=== PATIENT | female | born 1960 | race Caucasian/White ===

== ENCOUNTER → 2020-05-06 10:13 | Outpatient (BNVA) | payer OTHER, SELFPAY | PROVIDERS: PCP Internal Medicine; Referring Provider Internal Medicine; Visit Provider Physician Assistant | DX: Z47.89 Encounter for other orthopedic aftercare (principal); Z48.02 Encounter for removal of sutures | CPT/HCPCS: 99212 ==

== ENCOUNTER 2020-05-11 09:59 | Outpatient (REF) | payer OTHER, SELFPAY ==
--- NOTE | 2020-05-11 10:06 | XR_ITS ---
EXAMINATION: XR LUMBOSACRAL SPINE CLINICAL INFORMATION: Low back pain COMPARISON: None TECHNIQUE: The lumbar spine is imaged in 4 views: AP, lateral, lateral flexion, lateral extension. FINDINGS: There is normal. Lumbar segmentation with 5 nonrib-bearing lumbar vertebrae of normal height and normal lumbar lordosis. There are postsurgical fusion changes L5-S1 with bilateral rods and pedicle screws and intradiscal spacer. The hardware is intact. The vertebral bodies are normal in height. There is no vertebral compression, destructive process, or osteolysis. There are mild degenerative disc changes L1-L2 with mild disc narrowing and endplate sclerosis and vertebral spurring. There is borderline spondylolisthesis L4-L5 with flexion which is normal alignment neutral and extension positions. There is no retrolisthesis. The SI joints and remainder of the visualized sacrum are unremarkable. There are surgical clips upper abdomen likely related to prior gastric sleeve. IMPRESSION: 1. Post fusion changes L5-S1. Hardware intact. No osteolysis. 2. Mild degenerative disc changes L1-L2. 3. Borderline spondylolisthesis L4-L5 with flexion. This normalizes in neutral position and extension. No retrolisthesis.
== END 2020-05-11 10:00 | disposition home or self-care (01) ==
LOC: HO.XRAY 09:59
PROVIDERS: PCP Internal Medicine; Visit Provider Physical Medicine & Rehabilitation
DX: M54.5 Low back pain (principal)
CPT/HCPCS: 72100

== ENCOUNTER 2020-05-29 11:51 | Outpatient (REF) | payer OTHER, SELFPAY ==
--- NOTE | 2020-05-29 12:35 | XR_ITS ---
EXAMINATION: XR SHOULDER, RIGHT CLINICAL INFORMATION: Pain COMPARISON: None TECHNIQUE: 3 views of the right shoulder. FINDINGS: Mild glenohumeral joint arthritis. Mild to moderate AC joint arthritis. No fracture or dislocation. No abnormal soft tissue calcification. XR/XR shoulder RT min 2V IMPRESSION: Mild glenohumeral joint arthritis. Mild to moderate AC joint arthritis.
== END 2020-05-29 11:52 | disposition home or self-care (01) ==
LOC: HO.HOSX 11:51
PROVIDERS: PCP Internal Medicine; Referring Provider Internal Medicine; Visit Provider Orthopaedic Surgery
DX: M25.511 Pain in right shoulder (principal); M75.51 Bursitis of right shoulder
CPT/HCPCS: 20610; 73030; 99212

== ENCOUNTER 2020-06-25 10:00 | Outpatient (RCR) | payer OTHER, SELFPAY ==
--- NOTE | 2020-05-15 14:07 | MHC.PT.EP ---
[facility] [place] [facility] [place] [facility] [place] [facility] [address] Gabbie Nuno [address] [phone] F: [phone] F: [phone] F: [phone] F: [phone] Physical Therapy Plan of Care Date of Evaluation: 05/15/20 Date of Surgery: SAD and labral Debridement April 22 Diagnosis: SAD and labral Debridement April 22 Assessment: Patient is a 60 year old R handed female who presents with s/s consistent with SAD and labral debridement 04/22/2020. She is not currently work but does enjoy running errands, shopping and [place]. Patient past medical history includes spinal fusion, spinal stenosis, gastric bypass. Current impairments include pain, posture, ROM, strength, safety, independence, activity tolerance and functional mobility. Functional limitations include decreased ability to drive, lift, carry, push, pull, sleep, and perform weight bearing activities.. Patient is motivated with good rehab potential. Skilled PT will address impairments and functional limitations in order to achieve goals. Frequency and Duration: The patient will be seen 2x/week for 6 weeks Short Term Goals: I with HEP - 2 weeks ER/IR arc AROM to 100 - 3 weeks Pain with ADLs 6/10 max - 3 weeks Correction Goals: Strength 4/5 grossly - 6 weeks Full pain free AROM - 6 weeks SPADI 70/130 or less - 5 weeks Treatment Plan: Modalities to reduce pain, spasms and effusion. Manual therapy to restore motion and function. Therapeutic exercise to improve strength and flexibility. Neuromuscular re-education for posture and balance. Therapeutic activities to return to functional activities of daily living. Please sign and return to therapist. Thank you for your referral.
--- NOTE | 2020-07-01 07:57 | MHC.PT.DC ---
[facility] [place] [facility] [place] [facility] [place] Office [address] Gabbie Nuno [address] [phone] F: [phone] F: [phone] F: [phone] F: [phone] Physical Therapy Discharge Report Diagnosis: SAD and labral Debridement April 22 Date of Surgery: SAD and labral Debridement April 22 Date of Evaluation: 05/15/20 Date of Discharge: 06/30/20 Treatments to Date: 11 Cancellations to Date: 0 No Shows to Date: 0 Discharge Status: Independent with HEP Discharge Summary: Pt progressing with ROM. Pt needs to cont with RTC strengthening. She does have a good HEP to continue to address strength and ROM. Electronically signed by: Raffi Tamez, PT Please sign and return to therapist. Thank you for your referral.
== END 2020-07-01 07:58 | disposition home or self-care (01) ==
LOC: HO.PTCHIC 10:00
PROVIDERS: PCP Internal Medicine; Visit Provider Physician Assistant
DX: M75.81 Other shoulder lesions, right shoulder (principal)
CPT/HCPCS: 97110; 97140; 97162

== ENCOUNTER → 2020-07-30 11:30 | Outpatient (BNVA) | payer OTHER, SELFPAY | PROVIDERS: PCP Internal Medicine; Visit Provider Orthopaedic Surgery | DX: M75.51 Bursitis of right shoulder (principal); M19.012 Primary osteoarthritis, left shoulder | CPT/HCPCS: 99212 ==

== ENCOUNTER → 2020-08-17 09:27 | Outpatient (BNVA) | payer OTHER, SELFPAY | PROVIDERS: PCP Internal Medicine; Visit Provider Anesthesiology | DX: M96.1 Postlaminectomy syndrome, not elsewhere classified (principal); G89.4 Chronic pain syndrome | CPT/HCPCS: 99202 ==

== ENCOUNTER 2020-08-27 11:00 | Outpatient (RCR) | payer OTHER, SELFPAY ==
--- NOTE | 2020-07-03 07:48 | MHC.PT.EP ---
[facility] [place] [facility] [place] [facility] [place] Office [address] Nuno [address] [phone] F: [phone] F: [phone] F: [phone] F: [phone] Physical Therapy Plan of Care Date of Evaluation: 07/02/20 Date of Surgery: April 22 on L shoulder - R shoulder pain started around this time Diagnosis: R shoulder bursitis Assessment: Patient is a 60 year old R handed female who presents with s/s consistent with R shoulder pain/bursitis. She developed symptoms of shoulder pain shortly after or around the time of a L shoulder surgery at the end of March. She completed skilled PT for this and presents now to address her persistent R shoulder pain. She enjoys [place] and being able to run errands but has had increased difficulty in these areas. Patient past medical history includes cervical fusion, back surgery, weight loss surgery and L shoulder surgery. Current impairments include pain, ROM, posture, strength, safety, independence, activity tolerance and functional mobility. Functional limitations include decreased ability to sleep, lift, dress, carry, push, pull, [place], and perform weight bearing activities.. Patient is motivated with good rehab potential. Skilled PT will address impairments and functional limitations in order to achieve goals. Frequency and Duration: The patient will be seen 2x/week for 6 weeks Short Term Goals: I with HEP - 2 weeks AROM ER 45, flexion 130 - 3 weeks Max pain with sleep and ADLs 10/31 - 3 weeks Residential Goals: Able to [place] pain free - 5 weeks SPADI 50 or less - 5 weeks ER AROM to 50, flexion to 140, abd to 120 - 6 weeks Strength 4-/5 ER/IR - 6 weeks Treatment Plan: Modalities to reduce pain, spasms and effusion. Manual therapy to restore motion and function. Therapeutic exercise to improve strength and flexibility. Neuromuscular re-education for posture and balance. Therapeutic activities to return to functional activities of daily living. Electronically signed by: Raffi Tamez, PT Please sign and return to therapist. Thank you for your referral.
--- NOTE | 2020-10-05 13:56 | MHC.PT.DC ---
[facility] [place] Office [place] Office [place] Office [address] Gabbie Nuno [address] [phone] F: [phone] F: [phone] F: [phone] F: [phone] Physical Therapy Discharge Report Diagnosis: R shoulder bursitis Date of Surgery: April 22 on L shoulder - R shoulder pain started around this time Date of Evaluation: 07/02/20 Date of Discharge: 08/25/20 Treatments to Date: 8 Cancellations to Date: No Shows to Date: Discharge Status: Independent with HEP Discharge Summary: Pt progressed well over the course of skilled PT making progress on impairments and functional limitations resulting in an improved quality of life. Pt is I with HEP and appropriate to d/c to HEP at this time. Electronically signed by: Raffi Tamez, PT Please sign and return to therapist. Thank you for your referral.
== END 2020-10-05 14:00 | disposition home or self-care (01) ==
LOC: HO.PTCHIC 11:00
PROVIDERS: PCP Internal Medicine; Visit Provider Orthopaedic Surgery
DX: M75.51 Bursitis of right shoulder (principal)
CPT/HCPCS: 97035; 97110; 97140; 97162

== ENCOUNTER → 2020-08-28 15:27 | Outpatient (BNVA) | payer OTHER, SELFPAY | PROVIDERS: PCP Internal Medicine; Visit Provider Student in an Organized Health Care Education/Training Program | DX: L40.9 Psoriasis, unspecified (principal); R76.8 Other specified abnormal immunological findings in serum | CPT/HCPCS: 99212 ==

== ENCOUNTER 2020-09-01 08:00 | Outpatient (REF) | payer OTHER, SELFPAY ==
--- NOTE | ~2020-09-01 | XR_ITS ---
EXAMINATION: XR BILATERAL HAND AND BILATERAL FOOT CLINICAL INFORMATION: Psoriasis. COMPARISON: Previous right hand and left wrist x-ray November 2014. TECHNIQUE: 3 views of each hand and 3 views of each foot. FINDINGS: Left Hand: Bone alignment is normal. No fracture or dislocation is seen. There is a small soft tissue ossification or calcification adjacent to the dorsal medial DIP joint of the 2nd finger, question related to old trauma. Joint spaces are otherwise normal. Soft tissues are normal. Right Hand: Bone alignment is normal. No fracture or dislocation is seen. There is a small soft tissue ossification adjacent to the ulnar styloid, question related to old trauma. Joint spaces are normal. Soft tissues are normal. Left Foot: Bone alignment is normal in position is seen. Joint spaces are normal. There are small calcaneal spurs. Soft tissues are otherwise normal. Right Foot: Bone alignment is normal. No fracture or dislocation is seen. Joint spaces are normal. There are calcaneal spurs. Soft tissues are otherwise normal. XR/XR foot LT min 3V IMPRESSION: BILATERAL HANDS: Unremarkable exam BILATERAL FEET: Calcaneal spurs, right greater than left.
--- NOTE | ~2020-09-01 | XR_ITS ---
EXAMINATION: XR BILATERAL HAND AND BILATERAL FOOT CLINICAL INFORMATION: Psoriasis. COMPARISON: Previous right hand and left wrist x-ray November 2014. TECHNIQUE: 3 views of each hand and 3 views of each foot. FINDINGS: Left Hand: Bone alignment is normal. No fracture or dislocation is seen. There is a small soft tissue ossification or calcification adjacent to the dorsal medial DIP joint of the 2nd finger, question related to old trauma. Joint spaces are otherwise normal. Soft tissues are normal. Right Hand: Bone alignment is normal. No fracture or dislocation is seen. There is a small soft tissue ossification adjacent to the ulnar styloid, question related to old trauma. Joint spaces are normal. Soft tissues are normal. Left Foot: Bone alignment is normal in position is seen. Joint spaces are normal. There are small calcaneal spurs. Soft tissues are otherwise normal. Right Foot: Bone alignment is normal. No fracture or dislocation is seen. Joint spaces are normal. There are calcaneal spurs. Soft tissues are otherwise normal. XR/XR foot RT min 3V IMPRESSION: BILATERAL HANDS: Unremarkable exam BILATERAL FEET: Calcaneal spurs, right greater than left.
--- NOTE | ~2020-09-01 | XR_ITS ---
EXAMINATION: XR BILATERAL HAND AND BILATERAL FOOT CLINICAL INFORMATION: Psoriasis. COMPARISON: Previous right hand and left wrist x-ray November 2014. TECHNIQUE: 3 views of each hand and 3 views of each foot. FINDINGS: Left Hand: Bone alignment is normal. No fracture or dislocation is seen. There is a small soft tissue ossification or calcification adjacent to the dorsal medial DIP joint of the 2nd finger, question related to old trauma. Joint spaces are otherwise normal. Soft tissues are normal. Right Hand: Bone alignment is normal. No fracture or dislocation is seen. There is a small soft tissue ossification adjacent to the ulnar styloid, question related to old trauma. Joint spaces are normal. Soft tissues are normal. Left Foot: Bone alignment is normal in position is seen. Joint spaces are normal. There are small calcaneal spurs. Soft tissues are otherwise normal. Right Foot: Bone alignment is normal. No fracture or dislocation is seen. Joint spaces are normal. There are calcaneal spurs. Soft tissues are otherwise normal. XR/XR hand RT min 3V IMPRESSION: BILATERAL HANDS: Unremarkable exam BILATERAL FEET: Calcaneal spurs, right greater than left.
--- NOTE | ~2020-09-01 | XR_ITS ---
EXAMINATION: XR BILATERAL HAND AND BILATERAL FOOT CLINICAL INFORMATION: Psoriasis. COMPARISON: Previous right hand and left wrist x-ray November 2014. TECHNIQUE: 3 views of each hand and 3 views of each foot. FINDINGS: Left Hand: Bone alignment is normal. No fracture or dislocation is seen. There is a small soft tissue ossification or calcification adjacent to the dorsal medial DIP joint of the 2nd finger, question related to old trauma. Joint spaces are otherwise normal. Soft tissues are normal. Right Hand: Bone alignment is normal. No fracture or dislocation is seen. There is a small soft tissue ossification adjacent to the ulnar styloid, question related to old trauma. Joint spaces are normal. Soft tissues are normal. Left Foot: Bone alignment is normal in position is seen. Joint spaces are normal. There are small calcaneal spurs. Soft tissues are otherwise normal. Right Foot: Bone alignment is normal. No fracture or dislocation is seen. Joint spaces are normal. There are calcaneal spurs. Soft tissues are otherwise normal. XR/XR hand LT min 3V IMPRESSION: BILATERAL HANDS: Unremarkable exam BILATERAL FEET: Calcaneal spurs, right greater than left.
[2020-09-01 09:07] LABS: MANUAL DIFF FLAG NO
[2020-09-01 09:13] LABS: Basophils Absolute Auto 0.1 X10*3/uL (0.0-0.2); Basophils Percent Auto 1.5 % (0-2); Eosinophils Absolute Auto 0.3 X10*3/uL (0.0-0.4); Eosinophils Percent Auto 3.9 % (0-4); Hematocrit 42.6 % (37-47); Hemoglobin 13.1 g/dl (12.0-16.0); Imm Gran Abs Auto 0.03 X10*3/uL (0.00-0.03); Imm Gran Pct Auto 0.4 % (0.0-0.4); Lymphocytes Percent Auto 36.4 % (20-40); Mean Corpuscular HGB Conc 30.8 g/dl (31.0-35.0); Mean Corpuscular Hemoglobin 27.3 pg (27.0-33.0); Mean Corpuscular Volume 88.8 fL (80-98); Mean Platelet Volume 10.7 fL (9.4-12.3); Monocytes Absolute Auto 0.7 X10*3/uL (0.1-1.2); Monocytes Percent Auto 8.1 % (2-11); Neutrophils Absolute Auto 4.1 X10*3/uL (2.0-8.3); Neutrophils Percent Auto 49.7 % (45-73); Platelet Count 319 X10*3/uL (160-400); Red Cell Distribution Width 13.7 % (11.0-16.0); White Blood Count 8.2 X10*3/uL (4.8-10.8)
[2020-09-01 09:31] LABS: Alanine Aminotransferase 17 U/L (0-31); Albumin Level 4.2 g/dL (3.5-5.0); Alkaline Phosphatase 82 U/L (39-117); Anion Gap 13 (12-20); Aspartate Amino Transferase 17 U/L (5-31); Bilirubin Total 0.2 mg/dL (0.0-1.0); Blood Urea Nitrogen 13 mg/dL (9-16); C Reactive Protein 0.72 mg/dL (< or = 0.50); Calcium 9.2 mg/dL (8.4-10.2); Carbon Dioxide 29 mmol/L (22-29); Chloride 103 mmol/L (96-108); Cholesterol 259 mg/dL; Estimated Glomerular Filt Rate > 60; Glucose Fasting 88 mg/dL (60-99); HDL Cholesterol 53 mg/dL; LDL Cholesterol Calculated 177 mg/dl; Potassium 4.7 mmol/L (3.3-5.1); Sodium 140 mmol/L (135-145); Total Protein 6.8 g/dL (6.5-8.0); Triglycerides 146 mg/dL
[2020-09-01 09:45] LABS: Estimated Average Glucose 123 mg/dL; Hemoglobin A1c % 5.9 %
[2020-09-01 09:59] LABS: HBc Num1 0.14 S/CO (0.00-0.79); HBsAGNum1 0.16 S/CO (0.00-0.99); Hepatitis B Core Antibody Nonreactive (Nonreactive); Hepatitis B Surface Antigen Negative (Negative); ~Hepatitis B Surface Antibody NONREACTIVE (Nonreactive)
[2020-09-01 10:00] LABS: ~HepC Num1 0.08 S/CO (0.00-0.79); ~Hepatitis C Antibody Nonreactive (Nonreactive)
[2020-09-01 10:35] LABS: Erythrocyte Sedimentation Rate 16 MM/HR (0-20)
[2020-09-01 13:58] LABS: Rheumatoid Factor < 15.0 IU/mL (<15.0)
[2020-09-02 08:02] LABS: Hepatitis A Antibody IgM 0.09 Index (0-0.79); ~Hepatitis A Antibody IgM Nonreactive (Nonreactive)
[2020-09-02 11:57] LABS: Cyclic Citrullinated Peptide <16 UNITS
[2020-09-03 20:22] LABS: TS Negative Control Passed; TS Panel A 0; TS Panel B 0; TS Positive Control Passed; TSpotTB Negative (SeeBelow)
== END 2020-09-01 08:01 | disposition home or self-care (01) ==
LOC: HO.LAB 08:00
PROVIDERS: Student in an Organized Health Care Education/Training Program; PCP Internal Medicine; Referring Provider Internal Medicine Medical Oncology; Visit Provider Internal Medicine Medical Oncology
DX: F32.5 Major depressive disorder, single episode, in full remission (principal); G47.61 Periodic limb movement disorder; J45.909 Unspecified asthma, uncomplicated; K59.01 Slow transit constipation; E78.9 Disorder of lipoprotein metabolism, unspecified; L40.9 Psoriasis, unspecified
CPT/HCPCS: 36415; 73130; 73630; 80048; 80053; 80061; 83036; 85025; 85652; 86140; 86200; 86431; 86481; 86704; 86706; 86709; 86803; 87340

== ENCOUNTER 2020-09-08 10:14 | Emergency (ER) | payer OTHER, SELFPAY ==
--- NOTE | ~2020-09-08 | XR_ITS ---
EXAMINATION: XR CHEST CLINICAL INFORMATION: Abdominal pain COMPARISON: Chest radiographs 10/31/2018, 07/13/2018 TECHNIQUE: Portable upright AP view of the chest was obtained. FINDINGS: The lungs are clear. The vascularity is normal. The heart is normal in size. The costophrenic sulci are clear. There is no pneumothorax. No free air beneath the diaphragms. There are surgical clips again noted upper abdomen. The hilar and mediastinal contours and visualized bony structures are unremarkable. XR/XR chest 1V IMPRESSION: Unremarkable examination.
--- NOTE | ~2020-09-08 | CT_ITS ---
EXAMINATION: CT ABDOMEN AND PELVIS WITH CONTRAST CLINICAL INFORMATION: Right lower quadrant abdominal pain. Epigastric abdominal pain COMPARISON: Ultrasound 06/19/2018 TECHNIQUE: Multidetector volumetric images were obtained from the superior aspect of the liver through the pubic symphysis following administration 85 mL of Omnipaque 350 intravenous contrast. Sagittal and coronal reformatted images were obtained on the technologist's workstation. Oral contrast: No This CT examination was performed using dose optimization techniques as appropriate, variously including the following: *Automated exposure control *Adjustment of mA and/or kV according to patient size (this includes techniques or standardized protocols for targeted exams where dose is matched to indication/reason for exam; i.e. extremities or head) *Use of iterative reconstruction technique DLP: 875 mGy-cm FINDINGS: LUNG BASES: The visualized lung bases are unremarkable. LIVER, GALLBLADDER, AND BILIARY TREE: The liver is normal in size, shape, and attenuation. No focal hepatic lesion or biliary ductal dilatation is present. Gallbladder surgically absent. There is prominence of the common bile duct 1.1 cm with mild intrahepatic biliary ductal dilatation; this can be a normal expected finding is remote sequelae of prior cholecystectomy. PANCREAS: There is mild prominence of the proximal pancreatic duct. No pancreatic mass or peripancreatic inflammatory changes. SPLEEN: Unremarkable. ADRENAL GLANDS: Unremarkable. KIDNEYS AND URETERS: The kidneys are normal in size, shape, and attenuation. No hydronephrosis, hydroureter, or calculi seen. No perinephric stranding. BLADDER: Unremarkable. 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 The stomach is nondilated. Small bowel nondilated. Normal appendix. Mild diverticulosis. No evidence of colitis or diverticulitis. ABDOMINAL WALL: Small fat-containing umbilical hernia. LYMPH NODES: Normal. VASCULAR: Normal caliber aorta. Moderate calcified atherosclerotic changes. PELVIC VISCERA: Uterus not seen, likely surgically absent. No adnexal mass. OSSEOUS STRUCTURES: Lower lumbar fusion L5-S1. No acute or suspicious osseous abnormality. CT/CT abdomen pelvis w con IMPRESSION: No acute CT findings. Normal appendix. There is prominence of the common bile duct and mild intrahepatic biliary ductal dilatation, which can be normal findings is remote sequelae of prior cholecystectomy. Consider correlation with liver function tests.
[2020-09-08 11:15] VITALS: BP 125/51; PULSE 68; RESP 18; TEMP 37.1; O2SAT 97; BMI 36.2
--- NOTE | 2020-09-08 11:30 | ED_ITS ---
HPI - Abdominal Pain General Chief Complaint: Abdominal Pain <Дмитрий Villanueva NP - Last Filed: 09/08/20 16:46> Stated Complaint: pain on rt side <Дмитрий Villanueva NP - Last Filed: 09/08/20 16:46> Time Seen by Provider: 09/08/20 11:23 <Дмитрий Villanueva NP - Last Filed: 09/08/20 16:46> Source: patient <Дмитрий Villanueva NP - Last Filed: 09/08/20 16:46> Mode of arrival: ambulatory <Дмитрий Villanueva NP - Last Filed: 09/08/20 16:46> Limitations: no limitations <Дмитрий Villanueva NP - Last Filed: 09/08/20 16:46> History of Present Illness HPI narrative: 60-year-old female with blown past medical history including history of gastric ulcers and gastroesophageal reflux disease with surgical history of cholecystectomy who presents today with complaint of states for the past 1 week or so has had burning like epigastric pain and she went to urgent care for this were she had examination and reported the symptoms and on exam also had right lower quadrant abdominal pain was sent to the emergency room for rule out appy. She does report some nausea and vomiting after eating primarily but no diarrhea. No recent travel or sick contacts. No lower extremity swelling. No flank pain. <Дмитрий Villanueva NP - Last Filed: 09/08/20 16:46> MD elicited complaint: abdominal pain <Дмитрий Villanueva NP - Last Filed: 09/08/20 16:46> Pertinent past history: other (GERD) <Дмитрий Villanueva NP - Last Filed: 09/08/20 16:46> Onset (ago): week(s) <Дмитрий Villanueva NP - Last Filed: 09/08/20 16:46> Location: epigastric and RLQ <Дмитрий Villanueva NP - Last Filed: 09/08/20 16:46> Severity: moderate <Дмитрий Villanueva NP - Last Filed: 09/08/20 16:46> Radiation: none <Дмитрий Villanueva NP - Last Filed: 09/08/20 16:46> Associated symptoms: denies other symptoms <Дмитрий Villanueva NP - Last Filed: 09/08/20 16:46> Related Data Home Medications: Home Medications Medication Instructions Recorded Confirmed trazodone 100 mg tablet 100 mg PO BEDTIME PRN 05/06/20 07/01/20 cholecalciferol (vitamin D3) 50 50 mcg PO DAILY 05/29/20 07/01/20 mcg (2,000 unit) capsule cyclobenzaprine 10 mg tablet 10 mg PO BEDTIME 07/01/20 07/01/20 Previous Rx's Medication Instructions Recorded clonazepam 1 mg tablet 1 mg PO BEDTIME 90 Days #90 tab 07/01/20 venlafaxine 37.5 mg 37.5 mg PO DAILY 90 Days #90 cap 07/01/20 capsule,extended release 24 hr celecoxib 200 mg capsule 200 mg PO BID #60 cap 07/30/20 omeprazole magnesium [Prilosec OTC] 20 mg PO DAILY 14 Days #14 tab 09/08/20 ondansetron HCl [Zofran] 4 mg PO Q8H PRN #10 tab 09/08/20 <Дмитрий Villanueva NP - Last Filed: 09/08/20 16:46> Allergies/Adverse Reactions: Allergies Allergy/AdvReac Type Severity Reaction Status Date / Time adhesive tape [ADHESIVE TAPE] Allergy Severe SKIN TEARS Verified 09/08/20 11:14 carisoprodol [From SOMA] Allergy Intermediate SWELLING, Verified 09/08/20 11:14 RASH sulfamethoxazole Allergy Intermediate SWELLING,RA Verified 09/08/20 11:14 [From BACTRIM] SH trimethoprim [From BACTRIM] Allergy Intermediate SWELLING,RA Verified 09/08/20 11:14 SH gabapentin Allergy Unknown leg swells Verified 09/08/20 11:14 up Sulfa (Sulfonamide Allergy Unknown rash, Verified 09/08/20 11:14 Antibiotics) swelling Pramipexole Dihydrochloride Allergy Unknown severe Uncoded 05/31/20 17:23 diarrhea <Дмитрий Villanueva NP - Last Filed: 09/08/20 16:46> Review of Systems Review of Systems Constitutional: No Weight loss, No Fever, No Chills, No Night Sweats, No Fatigue, No Malaise ENT/Mouth: No Hearing loss, No Ear Pain, No Nasal Congestion, No Sinus Pain, No Hoarseness, No sore throat, No Rhinorrhea, No Swallowing Difficulty Eyes: No Eye Pain, No Swelling, No Redness, No Foreign Body, No Discharge, No Vision Changes Cardiovascular: No SOB, No Dyspnea on Exertion, No Orthopnea, No Edema, No Palpi tations Respiratory: No Cough, No Sputum, No Wheezing, No Smoke Exposure, No Dyspnea Gastrointestinal:, No Diarrhea, No Constipation, No Hematochezia, No Melena Genitourinary: no irregular bleeding, No Dysuria, No Urinary Frequency, No Hematuria, No Urinary Incontinence, No Urgency, No Flank Pain, No Urinary Flow Changes, No Hesitancy Musculoskeletal: No joint pain, No Myalgias, No Joint Swelling Skin: No Skin Lesions, No rash Neuro: No Weakness, No Numbness, No Paresthesias, No Loss of Consciousness, No Dizziness, No Headache Psych: No Anxiety/Panic, No Depression, No SI/HI/AH/VH, No Social Issues Heme/Lymph: No Bruising, No Bleeding,No Lymphadenopathy Endocrine: No Polyuria, No Polydipsia, No Temperature Intolerance <Дмитрий Villanueva NP - Last Filed: 09/08/20 16:46> Yes all other systems are reviewed and are negative <Дмитрий Villanueva NP - Last Filed: 09/08/20 16:46> Physical Exam Vital Signs: Vital Signs: Last Vital Signs Temp 98.1 F 09/08/20 15:22 Pulse 66 09/08/20 15:22 Resp 09/08/20 15:22 BP 101/52 L 09/08/20 15:22 Pulse Ox 94 09/08/20 15:22 Body Mass Index 36.2 Reviewed <Дмитрий Villanueva NP - Last Filed: 09/08/20 16:46> Vital Signs: Last Vital Signs Temp 98.1 F 09/08/20 15:22 Pulse 66 09/08/20 15:22 Resp 09/08/20 15:22 BP 101/52 L 09/08/20 15:22 Pulse Ox 94 09/08/20 15:22 Body Mass Index 36.2 <Alex Mcconnell MD - Last Filed: 09/14/20 07:04> Const: General: cooperative and healthy appearing; No acute distress or intoxicated appearing <Дмитрий Villanueva NP - Last Filed: 09/08/20 16:46> Nutritional Appearance: average body habitus <Дмитрий Villanueva NP - Last Filed: 09/08/20 16:46> Orientation/consciousness: patient oriented x3 <[facility] Rich - Last Filed: 09/08/20 16:46> HENMT: Head: Yes normal to inspection <[facility] Rich [facility] Last Filed: 09/08/20 16:46> Ears: hearing grossly normal bilaterally <[facility] Villanueva [facility] Last Filed: 09/08/20 16:46> Eyes: General: appearance normal, both eyes and all related structures <[facility] Villanueva - Last Filed: 09/08/20 16:46> Visual Mandel: normal visual mandel by confrontation <[facility] Villanueva [facility] Last Filed: 09/08/20 16:46> Neck: Neck: Yes normal visual inspection, No positive Brudzinski's sign, No positive Kernig's sign and No tender <[facility] Villanueva [employer] - Last Filed: 09/08/20 16:46> Thyroid: Thyroid normal <[facility] Villanueva [facility] Last Filed: 09/08/20 16:46> Chest: Chest palpation & inspection: normal inspection of the chest <[facility] Villanueva - Last Filed: 09/08/20 16:46> Resp: Effort & Inspection: normal respiratory effort <[facility] Villanueva [facility] Last Filed: 09/08/20 16:46> Auscultation: clear to auscultation bilaterally <[facility] Villanueva [employer] CONDITION[employer]INE[employer] - Last Filed: 09/08/20 16:46> Cardio: Jugular venous distension: no JVD <[facility] Villanueva - Last Filed: 09/08/20 16:46> Rhythm: regular rhythm <[facility] Villanueva - Last Filed: 09/08/20 16:46> Heart sounds: S1 normal heart sound present and S2 normal heart sound present <[facility] Villanueva, - Last Filed: 09/08/20 16:46> GI: Inspection: Yes normal to inspection <[facility] Villanueva, [employer] CONDITION[employer] ENGINEER - Last Filed: 09/08/20 16:46> Palpation (GI): Tenderness to palpation present (GI) in the epigastrum <[facility] Villanueva, [employer] CONDITION[employer] ENGINEER - Last Filed: 09/08/20 16:46> Percussion: Yes normal to percussion <Дмитрий Villanueva NP - Last Filed: 09/08/20 16:46> Auscultation: normal bowel sounds <Дмитрий Villanueva NP - Last Filed: 09/08/20 16:46> : General: Yes no CVA tenderness <Дмитрий Villanueva NP - Last Filed: 09/08/20 16:46> Back/Spine/Pelvis: Back: no CVA tenderness <Дмитрий Villanueva NP - Last Filed: 16:46> Skin: General skin exam: no rashes or lesions noted <Дмитрий Villanueva NP - Last Filed: 09/08/20 16:46> Neuro: General: patient oriented x3 <Дмитрий Villanueva NP - Last Filed: 09/08/20 16:46> Extrem: General: Yes normal to inspection <Дмитрий Villanueva NP - Last Filed: 09/08/20 16:46> Course Course Course Narrative: Feels better after GI cocktail. Workup overall reassuring. Will discharge home with short course of PPI return follow-up instructions. Stable for discharge. <Дмитрий Villanueva NP - Last Filed: 09/08/20 16:46> I have reviewed the chart <Alex Mcconnell MD - Last Filed: 09/14/20 07:04> MDM - Abdominal Pain MDM Narrative Medical decision making narrative: In review 60-year-old female with above history presenting with complaint of epigastric and vague right lower quadrant abdominal pain does have history of gastric ulcers as well as gastroesophageal reflux disease with some associated nausea and vomiting as well. Will check labs including cardiac enzymes chest x- ray and abdominal pelvic CT rule out acute infectious pathology. <Дмитрий Villanueva NP - Last Filed: 09/08/20 16:46> Differential Diagnosis Differential diagnosis: Likely abdominal pain, acute appendicitis, diverticulitis, gastroenteritis, gastritis, pancreatitis and peptic ulcer disease; Unlikely aortic dissection, bowel perforation, calculus of kidney, constipation, endometriosis, mesenteric ischemia, ovarian cyst, renal colic and small bowel obstruction <Дмитрий Villanueva NP - Last Filed: 09/08/20 16:46> Medical Records Attestation: I reviewed the patient's medical records. <Дмитрий Villanueva NP - Last Filed: 09/08/20 16:46> Lab Data Attestation: I reviewed the patient's lab results. <Дмитрий Villanueva NP - Last Filed: 09/08/20 16:46> Result diagrams: : 09/08/20 11:34 09/08/20 11:34 <Дмитрий Villanueva NP - Last Filed: 09/08/20 16:46> Labs: Lab Results 09/08/20 09/08/20 09/08/20 Range/Units 11:33 11:34 11:34 WBC 10.9 H (4.8-10.8) X10*3/uL RBC 4.76 (4.20-5.50) X10*6/uL Hgb 13.3 (12.0-16.0) g/dl Hct 42.2 (37-47) % MCV 88.7 (80-98) fL MCH 27.9 (27.0-33.0) pg MCHC 31.5 (31.0-35.0) g/dl RDW 13.7 (11.0-16.0) % Plt Count 304 (160-400) X10*3/uL MPV 10.3 (9.4-12.3) fL Immature Gran % (Auto) 0.3 (0.0-0.4) % Neut % (Auto) 67.2 (45-73) % Lymph % (Auto) 21.5 (20-40) % Esmeralda % (Auto) 8.3 (2-11) % Eos % (Auto) 1.8 (0-4) % Baso % (Auto) 0.9 (0-2) % Lymph # (Auto) 2.3 (1.2-4.9) X10*3/uL Esmeralda # (Auto) 0.9 (0.1-1.2) X10*3/uL Eos # (Auto) 0.2 (0.0-0.4) X10*3/uL Baso # (Auto) 0.1 (0.0-0.2) X10*3/uL Abs Immat Gran (auto) 0.03 (0.00-0.03) X10*3/uL Absolute Neuts (auto) 7.3 (2.0-8.3) X10*3/uL Absolute Nucleated RBC 0.000 (0.0-0.012) X10*3/uL Nucleated RBC % (auto) 0.0 (0.0-0.2) /100WBC PT 11.6 (10.8-13.0) SEC INR 1.0 (0.9-1.1) APTT 32.6 (24.1-38.0) SEC Sodium (135-145) mmol/L Potassium (3.3-5.1) mmol/L Chloride (96-108) mmol/L Carbon Dioxide (22-29) mmol/L Anion Gap (12-20) BUN (9-16) mg/dL Creatinine (0.5-1.4) mg/dL Estim Creat Clear Calc Estimated GFR Random Glucose (60-115) mg/dL Calcium (8.4-10.2) mg/dL Total Bilirubin (0.0-1.0) mg/dL AST (5-31) U/L ALT (0-31) U/L Alkaline Phosphatase (39-117) U/L Troponin I High Sens < 3.5 (<3.5-17.0) ng/L Total Protein (6.5-8.0) g/dL Albumin (3.5-5.0) g/dL Urine Color Urine Appearance Urine pH (5.0-8.0) Ur Specific [place] (1.005-1.025) Urine Protein (NEG-TRACE) MG/DL Urine Glucose (UA) (NEG) MG/DL Urine Ketones (NEG) MG/DL Urine Blood (NEG) Urine Nitrite (NEG) Ur Leukocyte Esterase (NEG) Urine RBC (0) /HPF Urine WBC (0-4) /HPF Ur Squamous Epith Cells /LPF Urine Bacteria /LPF 09/08/20 09/08/20 Range/Units 11:34 13:34 WBC (4.8-10.8) X10*3/uL RBC (4.20-5.50) X10*6/uL Hgb (12.0-16.0) g/dl Hct (37-47) % MCV (80-98) fL MCH (27.0-33.0) pg MCHC (31.0-35.0) g/dl RDW (11.0-16.0) % Plt Count (160-400) X10*3/uL MPV (9.4-12.3) fL Immature Gran % (Auto) (0.0-0.4) % Neut % (Auto) (45-73) % Lymph % (Auto) (20-40) % Esmeralda % (Auto) (2-11) % Eos % (Auto) (0-4) % Baso % (Auto) (0-2) % Lymph # (Auto) (1.2-4.9) X10*3/uL Esmeralda # (Auto) (0.1-1.2) X10*3/uL Eos # (Auto) (0.0-0.4) X10*3/uL Baso # (Auto) (0.0-0.2) X10*3/uL Abs Immat Gran (auto) (0.00-0.03) X10*3/uL Absolute Neuts (auto) (2.0-8.3) X10*3/uL Absolute Nucleated RBC (0.0-0.012) X10*3/uL Nucleated RBC % (auto) (0.0-0.2) /100WBC PT (10.8-13.0) SEC INR (0.9-1.1) APTT (24.1-38.0) SEC Sodium 141 (135-145) mmol/L Potassium 4.6 (3.3-5.1) mmol/L Chloride 104 (96-108) mmol/L Carbon Dioxide 29 (22-29) mmol/L Anion Gap 13 (12-20) BUN 11 (9-16) mg/dL Creatinine 0.66 (0.5-1.4) mg/dL Estim Creat Clear Calc 100.5 Estimated GFR > 60 Random Glucose 90 (60-115) mg/dL Calcium 9.4 (8.4-10.2) mg/dL Total Bilirubin 0.6 (0.0-1.0) mg/dL AST 14 (5-31) U/L ALT 15 (0-31) U/L Alkaline Phosphatase 79 (39-117) U/L Troponin I High Sens (<3.5-17.0) ng/L Total Protein 6.9 (6.5-8.0) g/dL Albumin 4.3 (3.5-5.0) g/dL Urine Color YELLOW Urine Appearance CLEAR Urine pH 7.0 (5.0-8.0) Ur Specific [place] 1.010 (1.005-1.025) Urine Protein NEG (NEG-TRACE) MG/DL Urine Glucose (UA) NEG (NEG) MG/DL Urine Ketones NEG (NEG) MG/DL Urine Blood TRACE (NEG) Urine Nitrite NEG (NEG) Ur Leukocyte Esterase NEG (NEG) Urine RBC 0-2 (0) /HPF Urine WBC 0 (0-4) /HPF Ur Squamous Epith Cells 2+ /LPF Urine Bacteria TRACE /LPF <Дмитрий Villanueva NP - Last Filed: 09/08/20 16:46> Lab Results 09/08/20 09/08/20 09/08/20 Range/Units 11:33 11:34 11:34 WBC 10.9 H (4.8-10.8) X10*3/uL RBC 4.76 (4.20-5.50) X10*6/uL Hgb 13.3 (12.0-16.0) g/dl Hct 42.2 (37-47) % MCV 88.7 (80-98) fL MCH 27.9 (27.0-33.0) pg MCHC 31.5 (31.0-35.0) g/dl RDW 13.7 (11.0-16.0) % Plt Count 304 (160-400) X10*3/uL MPV 10.3 (9.4-12.3) fL Immature Gran % (Auto) 0.3 (0.0-0.4) % Neut % (Auto) 67.2 (45-73) % Lymph % (Auto) 21.5 (20-40) % Esmeralda % (Auto) 8.3 (2-11) % Eos % (Auto) 1.8 (0-4) % Baso % (Auto) 0.9 (0-2) % Lymph # (Auto) 2.3 (1.2-4.9) X10*3/uL Esmeralda # (Auto) 0.9 (0.1-1.2) X10*3/uL Eos # (Auto) 0.2 (0.0-0.4) X10*3/uL Baso # (Auto) 0.1 (0.0-0.2) X10*3/uL Abs Immat Gran (auto) 0.03 (0.00-0.03) X10*3/uL Absolute Neuts (auto) 7.3 (2.0-8.3) X10*3/uL Absolute Nucleated RBC 0.000 (0.0-0.012) X10*3/uL Nucleated RBC % (auto) 0.0 (0.0-0.2) /100WBC PT 11.6 (10.8-13.0) SEC INR 1.0 (0.9-1.1) APTT 32.6 (24.1-38.0) SEC Sodium (135-145) mmol/L Potassium (3.3-5.1) mmol/L Chloride (96-108) mmol/L Carbon Dioxide (22-29) mmol/L Anion Gap (12-20) BUN (9-16) mg/dL Creatinine (0.5-1.4) mg/dL Estim Creat Clear Calc Estimated GFR Random Glucose (60-115) mg/dL Calcium (8.4-10.2) mg/dL Total Bilirubin (0.0-1.0) mg/dL AST (5-31) U/L ALT (0-31) U/L Alkaline Phosphatase (39-117) U/L Troponin I High Sens < 3.5 (<3.5-17.0) ng/L Total Protein (6.5-8.0) g/dL Albumin (3.5-5.0) g/dL Urine Color Urine Appearance Urine pH (5.0-8.0) Ur Specific [place] (1.005-1.025) Urine Protein (NEG-TRACE) MG/DL Urine Glucose (UA) (NEG) MG/DL Urine Ketones (NEG) MG/DL Urine Blood (NEG) Urine Nitrite (NEG) Ur Leukocyte Esterase (NEG) Urine RBC (0) /HPF Urine WBC (0-4) /HPF Ur Squamous Epith Cells /LPF Urine Bacteria /LPF 09/08/20 09/08/20 Range/Units 11:34 13:34 WBC (4.8-10.8) X10*3/uL RBC (4.20-5.50) X10*6/uL Hgb (12.0-16.0) g/dl Hct (37-47) % MCV (80-98) fL MCH (27.0-33.0) pg MCHC (31.0-35.0) g/dl RDW (11.0-16.0) % Plt Count (160-400) X10*3/uL MPV (9.4-12.3) fL Immature Gran % (Auto) (0.0-0.4) % Neut % (Auto) (45-73) % Lymph % (Auto) (20-40) % Esmeralda % (Auto) (2-11) % Eos % (Auto) (0-4) % Baso % (Auto) (0-2) % Lymph # (Auto) (1.2-4.9) X10*3/uL Esmeralda # (Auto) (0.1-1.2) X10*3/uL Eos # (Auto) (0.0-0.4) X10*3/uL Baso # (Auto) (0.0-0.2) X10*3/uL Abs Immat Gran (auto) (0.00-0.03) X10*3/uL Absolute Neuts (auto) (2.0-8.3) X10*3/uL Absolute Nucleated RBC (0.0-0.012) X10*3/uL Nucleated RBC % (auto) (0.0-0.2) /100WBC PT (10.8-13.0) SEC INR (0.9-1.1) APTT (24.1-38.0) SEC Sodium 141 (135-145) mmol/L Potassium 4.6 (3.3-5.1) mmol/L Chloride 104 (96-108) mmol/L Carbon Dioxide 29 (22-29) mmol/L Anion Gap 13 (12-20) BUN 11 (9-16) mg/dL Creatinine 0.66 (0.5-1.4) mg/dL Estim Creat Clear Calc 100.5 Estimated GFR > 60 Random Glucose 90 (60-115) mg/dL Calcium 9.4 (8.4-10.2) mg/dL Total Bilirubin 0.6 (0.0-1.0) mg/dL AST 14 (5-31) U/L ALT 15 (0-31) U/L Alkaline Phosphatase 79 (39-117) U/L Troponin I High Sens (<3.5-17.0) ng/L Total Protein 6.9 (6.5-8.0) g/dL Albumin 4.3 (3.5-5.0) g/dL Urine Color YELLOW Urine Appearance CLEAR Urine pH 7.0 (5.0-8.0) Ur Specific [place] 1.010 (1.005-1.025) Urine Protein NEG (NEG-TRACE) MG/DL Urine Glucose (UA) NEG (NEG) MG/DL Urine Ketones NEG (NEG) MG/DL Urine Blood TRACE (NEG) Urine Nitrite NEG (NEG) Ur Leukocyte Esterase NEG (NEG) Urine RBC 0-2 (0) /HPF Urine WBC 0 (0-4) /HPF Ur Squamous Epith Cells 2+ /LPF Urine Bacteria TRACE /LPF <Alex Mcconnell MD - Last Filed: 09/14/20 07:04> Imaging Data CT of abdomen/pelvis: Radiologist's impression: [address] Scan ReportSigned Patient: Kaylah Streeter LMR#: [id number]: [id number]:[id number]/Sex: 60 / FADM Date: 09/08/20Loc: [address]: Ordering Physician: Дмитрий Villanueva NP Date of Service: 09/08/20 Procedure(s): CT abdomen pelvis w con Accession Number(s): [id number] cc: Дмитрий Villanueva NP~ EXAMINATION: CT ABDOMEN AND PELVIS WITH CONTRAST CLINICAL INFORMATION: Right lower quadrant abdominal pain. Epigastric abdominal pain COMPARISON: Ultrasound 06/19/2018 TECHNIQUE: Multidetector volumetric images were obtained from the superior aspect of the liver through the pubic symphysis following administration 85 mL of Omnipaque 350 intravenous contrast. Sagittal and coronal reformatted images were obtained on the technologist's workstation. Oral contrast: No This CT examination was performed using dose optimization techniques as appropriate, variously including the following: *Automated exposure control *Adjustment of mA and/or kV according to patient size (this includes techniques or standardized protocols for targeted exams where dose is matched to indication/reason for exam; i.e. extremities or head) *Use of iterative reconstruction technique DLP: 875 mGy-cm FINDINGS: LUNG BASES: The visualized lung bases are unremarkable. LIVER, GALLBLADDER, AND BILIARY TREE: The liver is normal in size, shape, and attenuation. No focal hepatic lesion or biliary ductal dilatation is present. Gallbladder surgically absent. There is prominence of the common bile duct 1.1 cm with mild intrahepatic biliary ductal dilatation; this can be a normal expected finding is remote sequelae of prior cholecystectomy. PANCREAS: There is mild prominence of the proximal pancreatic duct. No pancreatic mass or peripancreatic inflammatory changes. SPLEEN: Unremarkable. ADRENAL GLANDS: Unremarkable. KIDNEYS AND URETERS: The kidneys are normal in size, shape, and attenuation. No hydronephrosis, hydroureter, or calculi seen. No perinephric stranding. BLADDER: Unremarkable. 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 The stomach is nondilated. Small bowel nondilated. Normal appendix. Mild diverticulosis. No evidence of colitis or diverticulitis. ABDOMINAL WALL: Small fat-containing umbilical hernia. LYMPH NODES: Normal. VASCULAR: Normal caliber aorta. Moderate calcified atherosclerotic changes. PELVIC VISCERA: Uterus not seen, likely surgically absent. No adnexal mass. OSSEOUS STRUCTURES: Lower lumbar fusion L5-S1. No acute or suspicious osseous abnormality. CT/CT abdomen pelvis w con IMPRESSION: No acute CT findings. Normal appendix. There is prominence of the common bile duct and mild intrahepatic biliary ductal dilatation, which can be normal findings is remote sequelae of prior cholecystectomy. Consider correlation with liver function tests. Dictated By:NEY HAMMOND MDSigned By:<Electronically signed by NEY HAMMOND MD in [place]>09/08/20 1258 DD/ 1132TD/TT: Technician'S Helper: TF <Дмитрий Villanueva NP - Last Filed: 09/08/20 16:46> Chest x-ray: Radiologist's impression: [address] [id number] ReportSigned Patient: Kaylah Streeter LMR#: [id number]: [id number]:[id number]/Sex: 60 / FADM Date: 09/08/20Loc: HO.EDAttending Dr: Ordering Physician: Дмитрий Villanueva NP Date of Service: 09/08/20 Procedure(s): XR chest 1V Accession Number(s): [id number] cc: Дмитрий Villanueva NP~ EXAMINATION: XR CHEST CLINICAL INFORMATION: Abdominal pain COMPARISON: Chest radiographs 10/31/2018, 07/13/2018 TECHNIQUE: Portable upright AP view of the chest was obtained. FINDINGS: The lungs are clear. The vascularity is normal. The heart is normal in size. The costophrenic sulci are clear. There is no pneumothorax. No free air beneath the diaphragms. There are surgical clips again noted upper abdomen. The hilar and mediastinal contours and visualized bony structures are unremarkable. XR/XR chest 1V IMPRESSION: Unremarkable examination. Dictated By:ALEX JONESigned By:<Electronically signed by ALEX ZIMMERMAN MD in [place]>09/08/20 1208 DD/ 1131TD/TT: Technician'S Helper: CK <Дмитрий Villanueva NP - Last Filed: 09/08/20 16:46> Discharge Plan Discharge Clinical Impression: Atypical chest pain, Abdominal pain <Дмитрий Villanueva NP - Last Filed: 09/08/20 16:46> Patient Disposition: Home, Self-Care <Дмитрий Villanueva NP - Last Filed: 09/08/20 16:46> Instructions: Chest Pain (ED), Abdominal Pain (ED) <Дмитрий Villanueva NP - Last Filed: 09/08/20 16:46> Additional Instructions: Chambers diet Taking medication prescribed Return if any concerns or worsening symptoms arose from her primary care doctor as discussed Thank you <Дмитрий Villanueva NP - Last Filed: 09/08/20 16:46> Prescriptions: New ondansetron HCl [Zofran] 4 mg tablet 4 mg PO Q8H PRN (Reason: nausea and vomiting) Qty: 10 RF: 0 omeprazole magnesium [Prilosec OTC] 20 mg tablet,delayed release (DR/EC) 20 mg PO DAILY 14 Days Qty: 14 RF: 0 No Action cholecalciferol (vitamin D3) 50 mcg (2,000 unit) capsule 50 mcg PO DAILY RF: 0 cyclobenzaprine 10 mg tablet 10 mg PO BEDTIME RF: 0 clonazepam 1 mg tablet 1 mg PO BEDTIME 90 Days Qty: 90 RF: 0 venlafaxine 37.5 mg capsule,extended release 24hr 37.5 mg PO DAILY 90 Days Qty: 90 RF: 0 trazodone 100 mg tablet 100 mg PO BEDTIME PRNRF: 0 celecoxib [Celebrex] 200 mg capsule 200 mg PO BID Qty: 60 RF: 1 <Дмитрий Villanueva NP - Last Filed: 09/08/20 16:46> Referrals: Amaya Harris MD [Primary Care Provider] - 1 week <Дмитрий Villanueva NP - Last Filed: 09/08/20 16:46> Interventions: ED Discharge Assessment Last Done: 09/08/20 16:24 <Дмитрий Villanueva NP - Last Filed: 09/08/20 16:46> Discharge Date/Time: 09/08/20 17:20 <Дмитрий Villanueva NP - Last Filed: 09/08/20 16:46> [facility] Past Medical History Medical History: Medical History JOHN positive Asthma, moderate Back pain Bursitis of right shoulder Chronic GERD Chronic pain syndrome Constipation by delayed colonic transit Degenerative disc disease Depression, major, in remission DJD (degenerative joint disease) Fibromyalgia Lipid disorder Periodic limb movement disorder Postlaminectomy syndrome of cervical region Postlaminectomy syndrome of lumbar region Pre-diabetes Right shoulder pain Sciatica, right side Sleeping difficulty Spinal stenosis <Дмитрий Villanueva NP - Last Filed: 09/08/20 16:46> Surgical History: Surgical History H/O shoulder surgery H/O spinal fusion H/O: hysterectomy History of gastric bypass Hx of cholecystectomy Status post bariatric surgery <Дмитрий Villanueva NP - Last Filed: 09/08/20 16:46> Family History Family History: Family History Father No problems noted. Mother No problems noted. <Дмитрий Villanueva NP - Last Filed: 09/08/20 16:46> Social History Social History: Social History (Updated 08/28/20 @ 15:34 by Sariah Alvarez CMA) Alcohol intake: never Smoking Status: Former smoker Current occupational status: disabled Current occupation: right handed <Дмитрий Villanueva NP - Last Filed: 09/08/20 16:46>
--- NOTE | 2020-09-08 11:31 | ECG_ITS ---
Test Reason : CHEST PRESSURE Blood Pressure : / mmHG Vent. Rate : 067 BPM Atrial Rate : 067 BPM P-R Int : 164 ms QRS Dur : 086 ms QT Int : 408 ms P-R-T Axes : 044 001 019 degrees QTc Int : 431 ms Normal sinus rhythm Normal ECG When compared with ECG of 11-JUL-2018 12:20, No significant change was found Referred By: Дмитрий Villanueva Electronically Signed By:Olegario Flannery
[2020-09-08] MEDS: 0.9 % Sodium Chloride 1,000 ML 999 ML IV (11:35)
[2020-09-08 11:41] LABS: MANUAL DIFF FLAG NO
[2020-09-08 11:47] LABS: Basophils Absolute Auto 0.1 X10*3/uL (0.0-0.2); Basophils Percent Auto 0.9 % (0-2); Eosinophils Absolute Auto 0.2 X10*3/uL (0.0-0.4); Eosinophils Percent Auto 1.8 % (0-4); Hematocrit 42.2 % (37-47); Hemoglobin 13.3 g/dl (12.0-16.0); Imm Gran Abs Auto 0.03 X10*3/uL (0.00-0.03); Imm Gran Pct Auto 0.3 % (0.0-0.4); Lymphocytes Absolute Auto 2.3 X10*3/uL (1.2-4.9); Lymphocytes Percent Auto 21.5 % (20-40); Mean Corpuscular HGB Conc 31.5 g/dl (31.0-35.0); Mean Corpuscular Hemoglobin 27.9 pg (27.0-33.0); Mean Corpuscular Volume 88.7 fL (80-98); Mean Platelet Volume 10.3 fL (9.4-12.3); Monocytes Absolute Auto 0.9 X10*3/uL (0.1-1.2); Monocytes Percent Auto 8.3 % (2-11); Neutrophils Absolute Auto 7.3 X10*3/uL (2.0-8.3); Neutrophils Percent Auto 67.2 % (45-73); Platelet Count 304 X10*3/uL (160-400); Red Blood Count 4.76 X10*6/uL (4.20-5.50); Red Cell Distribution Width 13.7 % (11.0-16.0); White Blood Count 10.9 X10*3/uL (4.8-10.8)
--- NOTE | 2020-09-08 11:48 | PC.NURSE ---
PT PLACED ON THE HEAVY EQUIPMENT OPERATOR FOR NONSPECIFIC CP COMPLAINTS SHE ALSO REPORTS MONTHS OF abd pain NAUSEA AND VOMTING WITH A HX OF GASTRIC BYPASS AND CHOLECYSTECTOMY
[2020-09-08] MEDS: ondansetron HCL 4 MG/2 ML VIAL IVPUSH (11:49)
[2020-09-08] MEDS: Morphine Sulfate 4 MG/ML CARTRIDGE IVPUSH (11:50)
[2020-09-08 11:51] LABS: Prothrombin Time 11.6 SEC (10.8-13.0)
[2020-09-08 11:53] LABS: Partial Thromboplastin Time 32.6 SEC (24.1-38.0)
[2020-09-08 12:03] LABS: Alanine Aminotransferase 15 U/L (0-31); Albumin Level 4.3 g/dL (3.5-5.0); Alkaline Phosphatase 79 U/L (39-117); Anion Gap 13 (12-20); Aspartate Amino Transferase 14 U/L (5-31); Bilirubin Total 0.6 mg/dL (0.0-1.0); Blood Urea Nitrogen 11 mg/dL (9-16); Calcium 9.4 mg/dL (8.4-10.2); Carbon Dioxide 29 mmol/L (22-29); Chloride 104 mmol/L (96-108); Creatinine Clr Calc Pharmacy 100.5; Estimated Glomerular Filt Rate > 60; Glucose Random 90 mg/dL (60-115); Potassium 4.6 mmol/L (3.3-5.1); Sodium 141 mmol/L (135-145); Total Protein 6.9 g/dL (6.5-8.0)
[2020-09-08 12:09] LABS: Troponin-I High Sensitivity < 3.5 ng/L (<3.5-17.0)
[2020-09-08] MEDS: iohexoL 350 MG/ML 100 ML INFUS..BTL 85 ML IV (12:36)
[2020-09-08 13:23] VITALS: BP 114/46; PULSE 65; RESP 16; O2SAT 98
[2020-09-08 13:43] LABS: Glucose Urine UA NEG (NEG); Leukocyte Esterase Urine NEG (NEG); Nitrite Urine NEG (NEG); Urine Blood TRACE (NEG); Urine Ketones NEG (NEG); Urine Protein NEG (NEG-TRACE)
[2020-09-08 13:45] LABS: Appearance Urine CLEAR; Color Urine YELLOW
[2020-09-08 13:55] LABS: Bacteria Urine TRACE /LPF; RBC Urine 0-2 /HPF (0); Squamous Epithelial Cell Urine 2+ /LPF; WBC Urine 0 /HPF (0-4)
[2020-09-08] MEDS: Lidocaine HCl Viscous 2 % 15 ML SOLUTION 10 ML MUCOUS MEM (14:39)
[2020-09-08] MEDS: Magnesium Hydrox/Alum Hydrox 30 ML ORAL.SUSP PO (14:40)
[2020-09-08 15:22] VITALS: BP 101/52; PULSE 66; RESP 13; TEMP 36.7; O2SAT 94
--- NOTE | 2020-09-08 16:25 | PC.NURSE ---
STATES MINIMAL RELIEF FROM GI COCKTAIL. FOLLOW UP WITH PCP.
== END 2020-09-08 17:20 | disposition home or self-care (01) ==
PROVIDERS: Nurse Practitioner Primary Care; Emergency Provider Emergency Medicine; PCP Internal Medicine
DX: R07.89 Other chest pain (principal); R10.31 Right lower quadrant pain; K21.9 Gastro-esophageal reflux disease without esophagitis; R73.03 Prediabetes; Z90.49 Acquired absence of other specified parts of digestive tract; Z98.84 Bariatric surgery status
CPT/HCPCS: 36415; 71045; 74177; 80053; 81001; 84484; 85025; 85610; 85730; 93005; 93225; 96361; 96374; 96375; 99283; 99284; J2270; J2405; Q9967

== ENCOUNTER 2020-09-22 08:52 | Outpatient (REF) | payer MEDICARE, MEDICAID, SELFPAY | END 2020-09-22 08:53 | disposition home or self-care (01) | LOC: HO.LAB 08:52 | PROVIDERS: Visit Provider Internal Medicine | DX: Z20.822 Contact with and (suspected) exposure to COVID-19 (principal) | CPT/HCPCS: 36415; C9803; U0003; U0005 ==

== ENCOUNTER 2020-10-12 12:21 | Day surgery (SDC) | payer MEDICARE, MEDICAID, SELFPAY ==
--- NOTE | 2020-10-09 07:16 | P.CONAN_ITS ---
Documented by User: Mary Yañezney 10/09/20 07:20 HPI - Anesthesia Eval Consult details Narrative: 60yo F for Upper Endoscopy [facility] for Abdominal pain/Chest pressure - cardiac etiology r/o, D/C home [facility] Active Problems Active Problems: All Active Problems (Updated 09/30/20 @ 10:47 by Amaya Harris MD) Chronic GERD (Acute) Difficulty sleeping (Acute) Chest pain (Acute) Abdominal pain (Acute) Psoriasis (Acute) JOHN positive (Acute) Chronic pain syndrome (Acute) Postlaminectomy syndrome of lumbar region (Acute) Postlaminectomy syndrome of cervical region (Acute) Chronic GERD (Acute) Depression, major, in remission (Acute) Periodic limb movement disorder (Acute) Sleeping difficulty (Acute) Sciatica, right side (Acute) Asthma, moderate (Acute) Constipation by delayed colonic transit (Acute) Pre-diabetes (Acute) DJD (degenerative joint disease) (Acute) Lipid disorder (Acute) Bursitis of right shoulder (Acute) Right shoulder pain (Acute) Impingement syndrome, shoulder, left (Acute) Rotator cuff tendonitis (Acute) Past Medical History Medical History JOHN positive Asthma, moderate Back pain Bursitis of right shoulder Chest pain Chronic GERD Chronic pain syndrome Constipation by delayed colonic transit Degenerative disc disease Depression, major, in remission DJD (degenerative joint disease) Fibromyalgia Lipid disorder Periodic limb movement disorder Postlaminectomy syndrome of cervical region Postlaminectomy syndrome of lumbar region Pre-diabetes Right shoulder pain Sciatica, right side Sleeping difficulty Spinal stenosis Family History Family History Father No problems noted. Mother No problems noted. Surgical History Surgical History H/O shoulder surgery H/O spinal fusion H/O: hysterectomy History of gastric bypass Hx of cholecystectomy Status post bariatric surgery Social History Social History (Updated 09/30/20 @ 10:50 by Nimisha Terrell) Are you a primary home care and home health aides teacher to a significant other at home: No Do you presently have visiting nurse or other home services: No Alcohol intake: current Alcohol intake frequency: holidays/special occasions only Smoking Status: Former smoker Years Smoked: 25 Smoking Quit Date: 2010 Use of substances other than those prescribed or required for medical reasons: No Advance Directives: No Advance Directives Information Provided: Yes Advance Directives on File: No Recently lost weight without trying: No Current occupational status: disabled Current occupation: right handed Meds Allergies Allergy/AdvReac Type Severity Reaction Status Date / Time adhesive tape [ADHESIVE TAPE] Allergy Severe SKIN TEARS Verified 09/08/20 11:14 carisoprodol [From SOMA] Allergy Intermediate SWELLING, Verified 09/08/20 11:14 RASH sulfamethoxazole Allergy Intermediate SWELLING,RA Verified 09/08/20 11:14 [From BACTRIM] SH trimethoprim [From BACTRIM] Allergy Intermediate SWELLING,RA Verified 09/08/20 11:14 SH gabapentin Allergy Unknown leg swells Verified 09/08/20 11:14 up Sulfa (Sulfonamide Allergy Unknown rash, Verified 09/08/20 11:14 Antibiotics) swelling Pramipexole Dihydrochloride Allergy Unknown severe Uncoded 05/31/20 17:23 diarrhea Home Medications Medication Instructions Recorded Confirmed Last Taken Type venlafaxine 75 mg capsule,extended 75 mg PO DAILY 09/30/20 09/30/20 Unknown History release 24 hr Exam Exam Date and Time: October 09, 2020 0716 Pertinent Lab Results Pertinent Lab Results: Laboratory Tests 09/08/20 09/08/20 11:34 11:34 WBC 10.9 H Hgb 13.3 Hct 42.2 Plt Count 304 Sodium 141 Potassium 4.6 Chloride 104 Carbon Dioxide 29 BUN 11 Creatinine 0.66 Laboratory Tests 09/08/20 11:33 Troponin I High Sens < 3.5 Narrative Narrative: EKG 08/2020 Vent. Rate : 067 BPM Atrial Rate : 067 BPM P-R Int : 164 ms QRS Dur : 086 ms QT Int : 408 ms P-R-T Axes : 044 001 019 degrees QTc Int : 431 ms Normal sinus rhythm Normal ECG When compared with ECG of 11-JUL-2018 12:20, No significant change was found Assessment and Plan Assessment Anesthesia Assessment: Chart Reviewed Documented by User: Cindy Barnes 10/12/20 13:13 PMFSH Past Medical History Medical History JOHN positive Asthma, moderate Back pain Bursitis of right shoulder Chest pain Chronic GERD Chronic pain syndrome Constipation by delayed colonic transit Degenerative disc disease Depression, major, in remission DJD (degenerative joint disease) Fibromyalgia Lipid disorder Periodic limb movement disorder Postlaminectomy syndrome of cervical region Postlaminectomy syndrome of lumbar region Pre-diabetes Right shoulder pain Sciatica, right side Sleeping difficulty Spinal stenosis Family History Family History Father No problems noted. Mother No problems noted. Surgical History Surgical History H/O shoulder surgery H/O spinal fusion H/O: hysterectomy History of gastric bypass Hx of cholecystectomy Status post bariatric surgery Social History Social History (Updated 09/30/20 @ 10:50 by Nimisha Terrell) Are you a primary home care and home health aides teacher to a significant other at home: No Do you presently have visiting nurse or other home services: No Alcohol intake: current Alcohol intake frequency: holidays/special occasions only Smoking Status: Former smoker Years Smoked: 25 Smoking Quit Date: 2010 Use of substances other than those prescribed or required for medical reasons: No Advance Directives: No Advance Directives Information Provided: Yes Advance Directives on File: No Recently lost weight without trying: No Current occupational status: disabled Current occupation: right handed Meds Allergies Allergy/AdvReac Type Severity Reaction Status Date / Time adhesive tape [ADHESIVE TAPE] Allergy Severe SKIN TEARS Verified 09/08/20 11:14 carisoprodol [From SOMA] Allergy Intermediate SWELLING, Verified 09/08/20 11:14 RASH sulfamethoxazole Allergy Intermediate SWELLING,RA Verified 09/08/20 11:14 [From BACTRIM] SH trimethoprim [From BACTRIM] Allergy Intermediate SWELLING,RA Verified 09/08/20 11:14 SH gabapentin Allergy Unknown leg swells Verified 09/08/20 11:14 up Sulfa (Sulfonamide Allergy Unknown rash, Verified 09/08/20 11:14 Antibiotics) swelling Pramipexole Dihydrochloride Allergy Unknown severe Uncoded 05/31/20 17:23 diarrhea Home Medications Medication Instructions Recorded Confirmed Last Taken Type venlafaxine 75 mg capsule,extended 75 mg PO DAILY 09/30/20 09/30/20 Unknown History release 24 hr Exam Airway Mallampati Class: I TM Dist: >3cm Neck ROM: Full Heart: RRR Lungs: CTA BL Assessment and Plan Assessment Anesthesia Assessment: Anesthesia Plan Discussed and Chart Reviewed Final Anesthetic Review NPO: Yes ASA Class: III Final Preanesthetic Review: No Changes in Pt Med Stat and Consent Obtained/Reviewed Patient Risk: Intermediate Procedure Risk: Intermediate Anesthetic Plan Anesthetic Plan: MAC: Disposition: Standard PACU
[2020-10-12 13:01] VITALS: BP 123/68; PULSE 68; RESP 16; TEMP 37.2; O2SAT 94
[2020-10-12 13:06] VITALS: BMI 36.2
[2020-10-12] MEDS: Lactated Ringers 1,000 ML 100 ML IVCONT (13:25)
[2020-10-12 14:48] VITALS: BP 107/57; PULSE 89; RESP 12; TEMP 36.9; O2SAT 96
--- NOTE | 2020-10-12 14:52 | PM.OP ---
Brief Operative Note Date of Service: 10/12/20 Pre-op diagnosis: Abdominal discomfort, N/V Post-op diagnosis: other (Minimal hiatal hernia, GERD, R/O gastritis) Procedure: EGD with biopsies Surgeon: Andrew Tong Anesthesia: MAC Estimated blood loss (mL): 4.0 Pathology: other (A. Gastric antrum B. EG Junction at 36cm) Condition: stable Disposition: PACU
[2020-10-12 15:03] VITALS: BP 111/63; PULSE 83; RESP 17; TEMP 36.9; O2SAT 96
--- NOTE | 2020-10-12 15:23 | OP_ITS ---
SURGEON: Andrew Tong MD INDICATIONS: The patient presents for evaluation of abdominal discomfort, nausea, and vomiting. Full consent has been obtained from her for this, including risks of bleeding and perforation. PREOPERATIVE DIAGNOSIS: POSTOPERATIVE DIAGNOSIS: PROCEDURE PERFORMED: Esophagogastroduodenoscopy with biopsies. ESTIMATED BLOOD LOSS: COMPLICATIONS: ANESTHESIA: Monitored anesthesia care. ASSISTANTS: SPECIMENS: PREOPERATIVE DIAGNOSES: Abdominal pain, nausea and vomiting. POSTOPERATIVE DIAGNOSES: Abdominal pain, nausea and vomiting, minimal hiatal hernia, gastroesophageal reflux, rule out gastritis. DESCRIPTION OF PROCEDURE: The patient was placed in the left lateral decubitus. The Olympus video gastroscope was passed in the posterior oropharynx and upper esophagus under direct vision. The scope was passed slowly to the distal esophagus. The gastroesophageal junction appeared at 36 cm. There was some slight erythema and minimal irregularity, but no evidence of esophagitis nor any definitive evidence of Valverde's mucosa. The scope entered into the stomach. There was evidence of a minimal hiatal hernia. The scope was advanced to the pylorus. The duodenum was cannulated to the descending portion. The duodenum including the bulb appeared normal without mass or ulceration. The scope was withdrawn back into the stomach. The gastric antrum and body had some minimal areas of erythema, but no erosions or ulceration. There was good peristalsis. The scope was retroflexed visualizing the proximal stomach carefully, which appeared normal, without any sign of retained food, mass, or ulceration. The scope was straightened. I was able to visualize the anastomotic line from her previous sleeve gastrectomy. The scope was withdrawn back into the esophagus. Biopsies were obtained at the EG junction at 36 cm. Proximal to this, the esophageal mucosa appeared normal. The scope was withdrawn from the patient. She tolerated the procedure well and was returned to the recovery area in stable condition. IMPRESSION: 1. Minimal hiatal hernia and reflux. 2. Rule out gastritis. PLAN: The results of the biopsy will be checked. She has been using omeprazole once a day, but continues to have upper GI complaints. I shall increase this to twice a day. I have also advised her of the need to eat small portions and watch her diet carefully. She will be seen in followup in the next 2 to 3 months. She was advised to call sooner if problems persist with her nausea, vomiting, and anorexia. We may want to pursue further workup with a nuclear medicine gastric emptying study to assess for gastroparesis and an UGI with small bowel series. This has been discussed with her . MD MICHI Melchor/SARAH / [id number] MTDD
== END 2020-10-12 15:37 | disposition home or self-care (01) ==
PROVIDERS: PCP Internal Medicine; Visit Provider Internal Medicine
PROC: 0DJ08ZZ Inspection of Upper Intestinal Tract, Via Natural or Artificial Opening Endoscopic (ICD-10-PCS; CPT 43235; principal; 2020-10-12 13:40)
DX: K21.9 Gastro-esophageal reflux disease without esophagitis (principal); R10.9 Unspecified abdominal pain; K44.9 Diaphragmatic hernia without obstruction or gangrene; K59.09 Other constipation; F32.5 Major depressive disorder, single episode, in full remission; Z98.84 Bariatric surgery status; Z90.49 Acquired absence of other specified parts of digestive tract
CPT/HCPCS: 43239; 88305; 88342

== ENCOUNTER → 2020-10-13 12:40 | Outpatient (BNVA) | payer MEDICARE, MEDICAID, SELFPAY | PROVIDERS: Visit Provider Student in an Organized Health Care Education/Training Program | DX: L40.50 Arthropathic psoriasis, unspecified (principal); L40.9 Psoriasis, unspecified; R76.8 Other specified abnormal immunological findings in serum | CPT/HCPCS: 99212 ==

== ENCOUNTER → 2020-10-19 08:39 | Outpatient (BNVA) | payer MEDICARE, MEDICAID, SELFPAY | PROVIDERS: PCP Internal Medicine; Visit Provider Anesthesiology | DX: M96.1 Postlaminectomy syndrome, not elsewhere classified (principal); G89.4 Chronic pain syndrome | CPT/HCPCS: 99212 ==

== ENCOUNTER → 2020-11-05 07:58 | Outpatient (REF) | payer MEDICARE, MEDICAID, SELFPAY ==
--- NOTE | ~2020-11-05 | NM_ITS ---
EXAMINATION: NM RADIONUCLIDE SOLID FOOD GASTRIC EMPTYING 4-HOUR STUDY CLINICAL INFORMATION: Vomiting hypogastric pain COMPARISON: None TECHNIQUE: A standard meal consisting of 4 oz of Egg Beaters brand tagged with 787 microcuries Tc-99m Sulfur Colloid, 8 oz water and 2 slices of toast with jelly was administered orally to the patient. Images were obtained using a dual head gamma camera in the anterior and posterior projections over of the stomach immediately post ingestion and at hourly intervals up to 4 hours post ingestion. The anterior and posterior counts at each time interval were averaged using the geometric mean and expressed as percentage of the immediate post ingestion counts. FINDINGS: There is good visualization of activity in the stomach immediately post ingestion. As the study progresses, there is good clearance of activity from the stomach and visualization of progressively increasing small bowel activity. By the end of the study, there is almost no retention noted in the stomach. Retention in the stomach at each time interval was: 1 hour 86% (normal 37%-90%) 2 hours 25% (normal 30%-60%) 3 hours 4% 4 hours 3% (normal 0%-10%) NM/NM gastric emptying study IMPRESSION: Normal 4-hour solid food gastric emptying study.
== END ==
LOC: HO.NUCMED 07:58
PROVIDERS: Visit Provider Internal Medicine
DX: R10.13 Epigastric pain (principal); R11.10 Vomiting, unspecified
CPT/HCPCS: 78264; A9541

== ENCOUNTER → 2020-11-19 11:23 | Outpatient (BNVA) | payer MEDICARE, MEDICAID, SELFPAY | PROVIDERS: PCP Internal Medicine; Visit Provider Orthopaedic Surgery | DX: G89.4 Chronic pain syndrome (principal); M75.51 Bursitis of right shoulder; M75.42 Impingement syndrome of left shoulder | CPT/HCPCS: 20610; 99212; J1040; J1100 ==

== ENCOUNTER 2020-12-01 09:05 | Outpatient (REF) | payer MEDICARE, MEDICAID, SELFPAY ==
[2020-12-01 11:19] LABS: MANUAL DIFF FLAG NO
[2020-12-01 11:32] LABS: Basophils Absolute Auto 0.1 X10*3/uL (0.0-0.2); Basophils Percent Auto 1.4 % (0-2); Eosinophils Absolute Auto 0.3 X10*3/uL (0.0-0.4); Eosinophils Percent Auto 3.8 % (0-4); Hematocrit 41.8 % (37-47); Hemoglobin 13.4 g/dl (12.0-16.0); Imm Gran Abs Auto 0.02 X10*3/uL (0.00-0.03); Imm Gran Pct Auto 0.3 % (0.0-0.4); Lymphocytes Absolute Auto 2.6 X10*3/uL (1.2-4.9); Lymphocytes Percent Auto 33.6 % (20-40); Mean Corpuscular HGB Conc 32.1 g/dl (31.0-35.0); Mean Corpuscular Volume 87.3 fL (80-98); Mean Platelet Volume 10.9 fL (9.4-12.3); Monocytes Absolute Auto 0.6 X10*3/uL (0.1-1.2); Monocytes Percent Auto 7.3 % (2-11); Neutrophils Absolute Auto 4.1 X10*3/uL (2.0-8.3); Neutrophils Percent Auto 53.6 % (45-73); Platelet Count 323 X10*3/uL (160-400); Red Blood Count 4.79 X10*6/uL (4.20-5.50); Red Cell Distribution Width 13.8 % (11.0-16.0); White Blood Count 7.6 X10*3/uL (4.8-10.8)
[2020-12-01 11:56] LABS: Alanine Aminotransferase 22 U/L (0-31); Albumin Level 4.2 g/dL (3.5-5.0); Alkaline Phosphatase 85 U/L (39-117); Anion Gap 13 (12-20); Aspartate Amino Transferase 19 U/L (5-31); Bilirubin Total 0.5 mg/dL (0.0-1.0); Blood Urea Nitrogen 8 mg/dL (9-16); Calcium 9.4 mg/dL (8.4-10.2); Carbon Dioxide 26 mmol/L (22-29); Chloride 105 mmol/L (96-108); Estimated Glomerular Filt Rate > 60; Glucose Random 98 mg/dL (60-115); Potassium 4.3 mmol/L (3.3-5.1); Sodium 140 mmol/L (135-145); Total Protein 6.8 g/dL (6.5-8.0)
[2020-12-01 12:33] LABS: Alanine Aminotransferase 19 U/L (0-31); Albumin Level 4.2 g/dL (3.5-5.0); Alkaline Phosphatase 82 U/L (39-117); Anion Gap 14 (12-20); Aspartate Amino Transferase 19 U/L (5-31); Bilirubin Total 0.6 mg/dL (0.0-1.0); Blood Urea Nitrogen 8 mg/dL (9-16); C Reactive Protein 0.95 mg/dL (< or = 0.50); Calcium 9.5 mg/dL (8.4-10.2); Carbon Dioxide 26 mmol/L (22-29); Chloride 104 mmol/L (96-108); Estimated Glomerular Filt Rate > 60; Glucose Random 95 mg/dL (60-115); Potassium 4.4 mmol/L (3.3-5.1); Sodium 140 mmol/L (135-145); Total Protein 6.7 g/dL (6.5-8.0)
[2020-12-01 19:00] LABS: Erythrocyte Sedimentation Rate 16 MM/HR (0-20)
[2020-12-07 18:47] LABS: Cardiolipin IgG Ab 24 GPL; Cardiolipin IgM Ab <12 MPL
== END 2020-12-01 09:06 | disposition home or self-care (01) ==
LOC: HO.HMGCLDS 09:05
PROVIDERS: Internal Medicine Medical Oncology; Student in an Organized Health Care Education/Training Program; PCP Internal Medicine; Visit Provider Internal Medicine
DX: L40.50 Arthropathic psoriasis, unspecified (principal); D68.61 Antiphospholipid syndrome
CPT/HCPCS: 36415; 80053; 85025; 85652; 86140; 86147

== ENCOUNTER → 2020-12-03 10:18 | Outpatient (BNVA) | payer MEDICARE, MEDICAID, SELFPAY | PROVIDERS: PCP Internal Medicine; Visit Provider Student in an Organized Health Care Education/Training Program | DX: L40.50 Arthropathic psoriasis, unspecified (principal); L40.9 Psoriasis, unspecified | CPT/HCPCS: 99212 ==

== ENCOUNTER 2020-12-15 10:13 | Outpatient (REF) | payer MEDICARE, MEDICAID, SELFPAY ==
--- NOTE | ~2020-12-15 | MR_ITS ---
EXAMINATION: MR SHOULDER WITHOUT CONTRAST, RIGHT CLINICAL INFORMATION: Right shoulder pain COMPARISON: None TECHNIQUE: MRI of the shoulder without contrast was performed on a high-field scanner. Examination is somewhat limited by patient motion. Coronal T1-weighted images were repeated. FINDINGS: ROTATOR CUFF: There is moderate subscapularis and supraspinatus tendinosis with undersurface fraying of the subscapularis along the more superior fibers and mild bursal surface fraying of the supraspinatus. No discrete tears are identified. No muscle atrophy or fatty infiltration. BICEPS: Moderate tendinosis at the groove entrance. CORACOACROMIAL ARCH: The undersurface of the acromion is flat with moderate acromioclavicular osteoarthritis. Trace subacromial-subdeltoid bursitis. No subacromial spur. LABRUM/CAPSULE: There is moderate undersurface fraying of the superior labrum without a discrete tear. The glenoid labrum is diffusely diminutive, likely due to a combination of developmental variation and superimposed degeneration. GLENOHUMERAL JOINT/MARROW: Small marginal osteophytes are present at the humeral head. There is mild nonuniform chondral thinning at the posterosuperior glenoid rim and at the medial humeral head. Additional partial-thickness cartilage loss and cortical irregularity are present at the superior aspect of the humeral head. No fracture or malalignment. Focal subcortical marrow edema in the superior humeral head adjacent to the greater tuberosity insertion is most likely reactive to the overlying tendinopathy. Small joint effusion. A small 6 x 3 x 2 mm chondral loose body is suspected in the axillary pouch with small foci of additional chondral debris and synovitis. MR/MR shoulder RT wo con IMPRESSION: 1. Mild glenohumeral osteoarthritis with degenerative fraying of the superior labrum. 2. Moderate subscapularis, supraspinatus, and biceps tendinosis. No appreciable rotator cuff tears. 3. Moderate acromioclavicular osteoarthritis.
== END 2020-12-15 10:14 | disposition home or self-care (01) ==
LOC: HO.MRI 10:13
PROVIDERS: Visit Provider Orthopaedic Surgery
DX: M24.811 Other specific joint derangements of right shoulder, not elsewhere classified (principal)
CPT/HCPCS: 73221

== ENCOUNTER → 2020-12-17 09:34 | Outpatient (BNVA) | payer MEDICARE, MEDICAID, SELFPAY | PROVIDERS: Visit Provider Orthopaedic Surgery | DX: M75.41 Impingement syndrome of right shoulder (principal); M75.21 Bicipital tendinitis, right shoulder | CPT/HCPCS: 99212 ==

== ENCOUNTER 2021-01-06 06:54 | Day surgery (SDC) | payer MEDICARE, MEDICAID, SELFPAY ==
[2021-01-01 09:08] VITALS: BMI 35.9
--- NOTE | 2021-01-04 12:13 | HO.ANESPROP2 ---
Documented by User: Mary Yañezney 01/04/21 12:17 HPI - Anesthesia Eval Consult details Narrative: 60yo F for Right Shoulder Arthroscopy,with subacromial decompression and poss biceps tenotomy Multiple Med Allergies PMFSH Active Problems Active Problems: All Active Problems (Updated 12/30/20 @ 11:30 by Amaya Harris MD) Rotator cuff tendonitis (Acute) Impingement syndrome, shoulder, left (Acute) Psoriasis (Acute) Abdominal pain (Acute) Difficulty sleeping (Acute) Chronic GERD (Acute) Psoriatic arthritis (Acute) Flushing (Acute) Severe major depression (Acute) Skin growth (Acute) Grieving (Acute) Chest pain (Acute) JOHN positive (Acute) Chronic pain syndrome (Acute) Postlaminectomy syndrome of lumbar region (Acute) Postlaminectomy syndrome of cervical region (Acute) Chronic GERD (Acute) Depression, major, in remission (Acute) Periodic limb movement disorder (Acute) Sleeping difficulty (Acute) Sciatica, right side (Acute) Asthma, moderate (Acute) Constipation by delayed colonic transit (Acute) Pre-diabetes (Acute) DJD (degenerative joint disease) (Acute) Lipid disorder (Acute) Bursitis of right shoulder (Acute) Right shoulder pain (Acute) Past Medical History Medical History JOHN positive Asthma, moderate Back pain Bursitis of right shoulder Chest pain Chronic GERD Chronic pain syndrome Constipation by delayed colonic transit Degenerative disc disease Depression, major, in remission DJD (degenerative joint disease) Fibromyalgia Lipid disorder Periodic limb movement disorder Postlaminectomy syndrome of cervical region Postlaminectomy syndrome of lumbar region Pre-diabetes Right shoulder pain Sciatica, right side Sleeping difficulty Spinal stenosis Family History Family History Father No problems noted. Mother No problems noted. Surgical History Surgical History H/O colonoscopy H/O shoulder surgery H/O spinal fusion H/O: hysterectomy History of esophagogastroduodenoscopy (EGD) History of gastric bypass History of sleeve gastrectomy Hx of cholecystectomy Status post bariatric surgery Social History Social History (Updated 01/01/21 @ 09:00 by Maisha Anand) Are you a primary home care and home health aides teacher to a significant other at home: No Do you presently have visiting nurse or other home services: No Alcohol intake: current Alcohol intake frequency: holidays/special occasions only Patient Tobacco Use Status: Former Tobacco user Quit Date: 2010 Tobacco use type: Cigarette Years Smoked: 25 Use of substances other than those prescribed or required for medical reasons: No Are you DNR?: No Advance Directives Information Provided: No Recently lost weight without trying: No Eating poorly because of decreased appetite: No Nutrition Risks: No Nutritional Risk Current occupational status: disabled Current occupation: right handed Meds Allergies Allergy/AdvReac Type Severity Reaction Status Date / Time adhesive tape [ADHESIVE TAPE] Allergy Severe SKIN TEARS Verified 01/06/21 07:02 pramipexole Allergy Severe Diarrhea Verified 01/06/21 07:02 carisoprodol [From SOMA] Allergy Intermediate SWELLING, Verified 01/06/21 07:02 RASH gabapentin Allergy Intermediate leg Verified 01/06/21 07:02 swelling sulfamethoxazole Allergy Intermediate SWELLING,RA Verified 01/06/21 07:02 [From BACTRIM] SH trimethoprim [From BACTRIM] Allergy Intermediate SWELLING,RA Verified 01/06/21 07:02 Home Medications Medication Instructions Recorded Confirmed Last Taken Type albuterol sulfate 90 mcg/actuation 2 puff INHALATION Q6H PRN 10/13/20 01/01/21 Unknown History aerosol inhaler Exam Exam Date and Time: January 04, 2021 1213 Height,Weight and Vital Signs: Height 5 ft 4 in Weight 94.801 kg Pertinent Lab Results Pertinent Lab Results: Laboratory Tests 12/01/20 12/01/20 09:19 09:19 WBC 7.6 Hgb 13.4 Hct 41.8 Plt Count 323 Sodium 140 Potassium 4.4 Chloride 104 Carbon Dioxide 26 BUN 8 L Creatinine 0.68 Narrative Narrative: EKG 08/2020 Vent. Rate : 067 BPM Atrial Rate : 067 BPM P-R Int : 164 ms QRS Dur : 086 ms QT Int : 408 ms P-R-T Axes : 044 001 019 degrees QTc Int : 431 ms Normal sinus rhythm Normal ECG When compared with ECG of 11-JUL-2018 12:20, No significant change was found Assessment and Plan Assessment Anesthesia Assessment: Chart Reviewed Documented by User: Leonora Ansari 01/06/21 07:49 [facility] Past Medical History Medical History JOHN positive Asthma, moderate Back pain Bursitis of right shoulder Chest pain Chronic GERD Chronic pain syndrome Constipation by delayed colonic transit Degenerative disc disease Depression, major, in remission DJD (degenerative joint disease) Fibromyalgia Lipid disorder Periodic limb movement disorder Postlaminectomy syndrome of cervical region Postlaminectomy syndrome of lumbar region Pre-diabetes Right shoulder pain Sciatica, right side Sleeping difficulty Spinal stenosis Family History Family History Father No problems noted. Mother No problems noted. Surgical History Surgical History H/O colonoscopy H/O shoulder surgery H/O spinal fusion H/O: hysterectomy History of esophagogastroduodenoscopy (EGD) History of gastric bypass History of sleeve gastrectomy Hx of cholecystectomy Status post bariatric surgery Social History Social History (Updated 01/01/21 @ 09:00 by Maisha Anand) Are you a primary home care and home health aides teacher to a significant other at home: No Do you presently have visiting nurse or other home services: No Alcohol intake: current Alcohol intake frequency: holidays/special occasions only Patient Tobacco Use Status: Former Tobacco user Quit Date: 2010 Tobacco use type: Cigarette Years Smoked: 25 Use of substances other than those prescribed or required for medical reasons: No Are you DNR?: No Advance Directives Information Provided: No Recently lost weight without trying: No Eating poorly because of decreased appetite: No Nutrition Risks: No Nutritional Risk Current occupational status: disabled Current occupation: right handed Meds Allergies Allergy/AdvReac Type Severity Reaction Status Date / Time adhesive tape [ADHESIVE TAPE] Allergy Severe SKIN TEARS Verified 01/06/21 07:02 pramipexole Allergy Severe Diarrhea Verified 01/06/21 07:02 carisoprodol [From SOMA] Allergy Intermediate SWELLING, Verified 01/06/21 07:02 RASH gabapentin Allergy Intermediate leg Verified 01/06/21 07:02 swelling sulfamethoxazole Allergy Intermediate SWELLING,RA Verified 01/06/21 07:02 [From BACTRIM] SH trimethoprim [From BACTRIM] Allergy Intermediate SWELLING,RA Verified 01/06/21 07:02 Home Medications Medication Instructions Recorded Confirmed Last Taken Type albuterol sulfate 90 mcg/actuation 2 puff INHALATION Q6H PRN 10/13/20 01/01/21 Unknown History aerosol inhaler Exam Airway Mallampati Class: II TM Dist: >3cm Neck ROM: Full Assessment and Plan Assessment Anesthesia Assessment: Anesthesia Plan Discussed and Chart Reviewed Final Anesthetic Review NPO: Yes ASA Class: III Final Preanesthetic Review: No Changes in Pt Med Stat, Meds/Allgs Chart Reviewed, Consent Obtained/Reviewed and Anes Risks/Benef Reviewed Patient Risk: Intermediate Procedure Risk: Low Assessment/Block/Sedation in SS: Assess/Block/Sedation-SS Anesthetic Plan Anesthetic Plan: GA and Regional Block Disposition: Standard PACU
[2021-01-06] VITALS (18 sets, daily range): BP systolic 98–126; BP diastolic 43–55; PULSE 61–76; RESP 16–18; TEMP 36.7–37.2; O2SAT 93–99
[2021-01-06] MEDS: Lactated Ringers 1,000 ML 100 ML IVCONT (07:30)
--- NOTE | 2021-01-06 08:30 | MHC.SHP ---
Pre-Procedural Eval Section A The patient is an INPATIENT: No Changes since office visit: Yes Patient answered all questions; No Cold of Flu in the past 2 weeks, No New Medical Problems and No Changes in Medication The History & Physical has been completed within 30 days and I have reviewed it.: Yes Section B Chief Complaint: Impingement syndrome Right Shoulder Allergies: Allergies Allergy/AdvReac Type Severity Reaction Status Date / Time adhesive tape [ADHESIVE TAPE] Allergy Severe SKIN TEARS Verified 01/06/21 07:02 pramipexole Allergy Severe Diarrhea Verified 01/06/21 07:02 carisoprodol [From SOMA] Allergy Intermediate SWELLING, Verified 01/06/21 07:02 RASH gabapentin Allergy Intermediate leg Verified 01/06/21 07:02 swelling sulfamethoxazole Allergy Intermediate SWELLING,RA Verified 01/06/21 07:02 [From BACTRIM] SH trimethoprim [From BACTRIM] Allergy Intermediate SWELLING,RA Verified 01/06/21 07:02 SH Plan I have reviewed the history and physical and performed a pertinent physical examination on my patient. No changes have occurred unless specified.
--- NOTE | 2021-01-06 09:47 | PM.OP ---
Brief Operative Note Date of Service: 01/06/21 Pre-op diagnosis: right shoulder impingement syndrome Post-op diagnosis: other (1) right shoulder impingement 2) right shoulder biceps tendon tear 3) right shoulder partial subscapularis tear 4) right shoulder acj arthritis) Procedure: right shoulder arthroscopy with circumeferential labral debridement and bicpstenotomy with SAD and DCE Surgeon: López Wills MD Anesthesia: GETA and regional Was an Customer Contact Specialist used for this Procedure?: Yes Customer Contact Specialist: Cira Harrison Estimated blood loss (mL): 5 IV fluids (mL): 800 Pathology: none sent Condition: stable Disposition: PACU
[2021-01-06] MEDS: oxyCODONE HCl Immed Release 5 MG TABLET PO ×2 (10:02→11:05)
[2021-01-06] MEDS: Acetaminophen 325 MG TABLET 650 MG PO (10:02)
[2021-01-06] MEDS: fentaNYL citrate/PF 100 MCG/2 ML VIAL 25 MCG IVPUSH ×4 (10:21→10:47)
--- NOTE | 2021-01-07 09:11 | W.PM.OPN ---
Operative Note Operative Note Date of Service: 01/06/21 Narrative: Pre-op diagnosis: right shoulder impingement syndrome Post-op diagnosis: other (1) right shoulder impingement 2) right shoulder biceps tendon tear 3) right shoulder partial subscapularis tear 4) right shoulder acj arthritis) Procedure: right shoulder arthroscopy with circumeferential labral debridement and biceps tenotomy with SAD and DCE Surgeon: López Wills MD Anesthesia: GETA and regional Was an Human Resources District Manager used for this Procedure?: Yes Human Resources District Manager: Cira Harrison Estimated blood loss (mL): 5 IV fluids (mL): 800 Pathology: none sent Condition: stable Disposition: PACU Procedure in detail: Patient was brought to the operating room and placed the the beach chair position. All bony prominences were well padded and she was prepped and draped in standard sterile fashion. A time out was called to identify proper site, proper procedure and proper surgeon. IV antibiotics per weight were administered. I began by making a posterolateral stab incision with a 15 blade. A blunt trochar was placed into the glenohumeral joint and IO insufflated the joint with saline and a 30 degree arthroscope was placed. I established an outside- in anterior portal just distal to the biceps tendon. I then began my inspection of the glenohumeral joint. The inferior gutter was clean. There were no cartilage changes. There was a high-grade tear of the biceps anchor proximally 75% and this was to not a my is too. Circumferential labral debridement with a shaver was performed. Subscapularis had small insertional tearing over the superior aspect. This was debrided but there was no indication for repair. Anterior labrum was intact. There was no obvious undersurface rotator cuff tear. I then removed the trochar and entered the subacromial space. A direct lateral portal was then established and I performed a bursectomy. The cuff was then examined. There was no rotator cuff tearing. A 5 mm subacromial decompression was performed and then I examined the AC joint. There was arthropathy of the distal clavicle and a distal clavicle excision was performed with a bur from the anterior portal. I removed approximately 6 mm of distal clavicle while preserving the superior ligaments. Once I was satisfied with the extent of resection I took my final pictures and removed all instrumentation. The portals were closed with nylon the patient was placed in sterile dressing and a sling. She was extubated brought to recovery room in stable condition there were no known complications.
== END 2021-01-06 12:17 | disposition home or self-care (01) ==
PROVIDERS: PCP Internal Medicine; Visit Provider Orthopaedic Surgery
PROC: (CPT 29805; principal; 2021-01-06 08:40)
DX: M75.41 Impingement syndrome of right shoulder (principal); M19.011 Primary osteoarthritis, right shoulder; S46.211A Strain of muscle, fascia and tendon of other parts of biceps, right arm, initial encounter; S46.811A Strain of other muscles, fascia and tendons at shoulder and upper arm level, right arm, initial encounter; X58.XXXA Exposure to other specified factors, initial encounter; Y93.9 Activity, unspecified; Y92.9 Unspecified place or not applicable; Y99.9 Unspecified external cause status; Z88.2 Allergy status to sulfonamides; Z88.8 Allergy status to other drugs, medicaments and biological substances
CPT/HCPCS: 29826; 29824; J0171; J0690; J1100; J2250; J2405; J3010

== ENCOUNTER 2021-01-18 09:27 | Outpatient (REF) | payer MEDICARE, MEDICAID, SELFPAY ==
--- NOTE | ~2021-01-18 | XR_ITS ---
EXAMINATION: XR SACROILIAC JOINTS CLINICAL INFORMATION: Sacrococcygeal disorder. COMPARISON: CT scan of 09/08/2020 and studies of 05/24/2018. TECHNIQUE: 3 views of the sacroiliac joints FINDINGS: Patient status post transpedicular screw and alicia fixation L5-S1 with what appears to be some degree of fusion across the L5-S1 disc space. Sacroiliac joints appear unremarkable without evidence of widening or fusion. Changes of enthesopathy seen about the pelvis involving the iliac bones and greater trochanters bilaterally. Bone island is seen about the left ischium and right proximal femur. XR/XR sacroiliac joint min 3V IMPRESSION: No significant sacroiliac joint abnormality appreciated. Status post transpedicular fusion L5-S1.
== END 2021-01-18 09:28 | disposition home or self-care (01) ==
LOC: HO.XRAY 09:27
PROVIDERS: Absent Provider Nurse Practitioner Women's Health; PCP Internal Medicine; Visit Provider Orthopaedic Surgery
DX: M53.3 Sacrococcygeal disorders, not elsewhere classified (principal); M75.81 Other shoulder lesions, right shoulder; Z79.899 Other long term (current) drug therapy
CPT/HCPCS: 72202; 99212

== ENCOUNTER → 2021-02-11 15:41 | Outpatient (BNVA) | payer MEDICARE, MEDICAID, SELFPAY | PROVIDERS: PCP Internal Medicine; Visit Provider Orthopaedic Surgery | DX: M75.41 Impingement syndrome of right shoulder (principal); M19.019 Primary osteoarthritis, unspecified shoulder | CPT/HCPCS: 99212 ==

== ENCOUNTER 2021-03-01 14:46 | Outpatient (REF) | payer MEDICARE, MEDICAID, SELFPAY ==
[2021-03-01 16:33] LABS: MANUAL DIFF FLAG NO
[2021-03-01 17:01] LABS: Basophils Absolute Auto 0.1 X10*3/uL (0.0-0.2); Basophils Percent Auto 0.7 % (0-2); Eosinophils Absolute Auto 0.3 X10*3/uL (0.0-0.4); Eosinophils Percent Auto 3.6 % (0-4); Hematocrit 40.5 % (37-47); Hemoglobin 12.6 g/dl (12.0-16.0); Imm Gran Abs Auto 0.03 X10*3/uL (0.00-0.03); Imm Gran Pct Auto 0.3 % (0.0-0.4); Lymphocytes Absolute Auto 2.9 X10*3/uL (1.2-4.9); Lymphocytes Percent Auto 31.2 % (20-40); Mean Corpuscular HGB Conc 31.1 g/dl (31.0-35.0); Mean Corpuscular Hemoglobin 28.1 pg (27.0-33.0); Mean Corpuscular Volume 90.2 fL (80-98); Mean Platelet Volume 11.3 fL (9.4-12.3); Monocytes Absolute Auto 0.6 X10*3/uL (0.1-1.2); Monocytes Percent Auto 6.7 % (2-11); Neutrophils Absolute Auto 5.3 X10*3/uL (2.0-8.3); Neutrophils Percent Auto 57.5 % (45-73); Platelet Count 297 X10*3/uL (160-400); Red Blood Count 4.49 X10*6/uL (4.20-5.50); Red Cell Distribution Width 14.6 % (11.0-16.0); White Blood Count 9.2 X10*3/uL (4.8-10.8)
[2021-03-01 17:05] LABS: Alanine Aminotransferase 22 U/L (0-31); Albumin Level 4.2 g/dL (3.5-5.0); Alkaline Phosphatase 85 U/L (39-117); Anion Gap 12 (12-20); Aspartate Amino Transferase 16 U/L (5-31); Bilirubin Total 0.2 mg/dL (0.0-1.0); Blood Urea Nitrogen 12 mg/dL (9-16); C Reactive Protein 0.73 mg/dL (< or = 0.50); Calcium 8.9 mg/dL (8.4-10.2); Carbon Dioxide 30 mmol/L (22-29); Chloride 107 mmol/L (96-108); Estimated Glomerular Filt Rate > 60; Glucose Random 86 mg/dL (60-115); Potassium 4.8 mmol/L (3.3-5.1); Sodium 144 mmol/L (135-145); Total Protein 6.6 g/dL (6.5-8.0)
[2021-03-01 18:30] LABS: Erythrocyte Sedimentation Rate 18 MM/HR (0-20)
== END 2021-03-01 14:47 | disposition home or self-care (01) ==
LOC: HO.HMGCLDS 14:46
PROVIDERS: PCP Internal Medicine; Visit Provider Student in an Organized Health Care Education/Training Program
DX: L40.50 Arthropathic psoriasis, unspecified (principal)
CPT/HCPCS: 36415; 80053; 85025; 85652; 86140

== ENCOUNTER → 2021-03-10 10:07 | Outpatient (BNVA) | payer MEDICARE, MEDICAID, SELFPAY | PROVIDERS: PCP Internal Medicine; Visit Provider Nurse Practitioner Family | DX: L40.50 Arthropathic psoriasis, unspecified (principal) | CPT/HCPCS: 99212 ==

== ENCOUNTER 2021-03-19 10:00 | Outpatient (RCR) | payer MEDICARE, MEDICAID, SELFPAY ==
--- NOTE | 2021-01-28 15:48 | MHC.PT.EP ---
[place] Office [place] Office [place] Office [address] [phone] F: [phone] F: [phone] F: [phone] F: [phone] Physical Therapy Plan of Care Date of Evaluation: Date of Surgery: 01/07/21 Diagnosis: IMPINGEMENT SYNDROME RIGHT SHOULDER Assessment: 60 YO FEMALE REF S/P Rt BICEPS TENOTOMY, DCE, SAD 01/06/[address] ARCINIEGA. Pt IS Rt HAND DOMINANT AND HAS A H/O SIMILAR PROCEDURE ON LEFT UE IN 2019. Pt NOTES DIFFIC W HER CURRENT PAIN MANAGEMENT IN Rt SH/ BICEPS. OBJECTIVE FINDINGS: LIMITED ROM Rt SH, (+) SOFT TISSUE IRRIT AND COMPENSATORY UPPER TRAP ACTIV, DECR SCAP STAB, DECR POSTURE AWARENESS, LIMITED CERV ROM (H/O FUSION), AND NOTED, PAIN. FUNCTIONALLY, Pt HAS DIFFIC SLEEPING, WASHING HER HAIR, GENERAL ADLs, LIMITED WITH EVERYTHING PER Pt. Pt IS A GOOD CANDIDATE FOR SKILLED PT TO GUIDE HER ALONG HER POST OP COURSE. Frequency and Duration: The patient will be seen 2 x WK X 8 WKS Short Term Goals: Pt'S Rt SH PAIN DECR TO 2-3/10 IN 3 WKS Pt INDEP W SELF-CORRECTION OF POSTURE AND POSITIONING TO REDUCE STRESS TO Rt SH GIRDLE IN 2 WKS IMPROVE AAROM-> AROM Rt SH IN 3 WKS Detention Goals: Pt INDEP W HEP AND SELF-SX MGMT TECHN IN 6 WKS Pt DEMON WFL AROM Rt SH TO RESUME REG ADLs ( CLEARED BY MD) IN 8 WKS Pt'S SPADI SCORE REDUCED BY AT LEAST 15 POINTS (114/130 AT EVAL) IN 8 WKS Treatment Plan: Modalities to reduce pain, spasms and effusion. Manual therapy to restore motion and function. Therapeutic exercise to improve strength and flexibility. Neuromuscular re-education for posture and balance. Therapeutic activities to return to functional activities of daily living. Electronically signed by: Padmini Pyle,PT Please sign and return to therapist. Thank you for your referral.
--- NOTE | 2021-05-10 13:32 | MHC.PT.DC ---
[facility] [place] Office [place] Office [place] Office [address] [phone] F: [phone] F: [phone] F: [phone] F: [phone] Physical Therapy Discharge Report Diagnosis: IMPINGEMENT SYNDROME RIGHT SHOULDER S/P Rt SAD/DCE W Rt BICEPS TENOTOMY 01/07/21 Date of Surgery: 01/07/21 Date of Evaluation: 01/28/21 Date of Discharge: 05/10/21 Treatments to Date: 12 Cancellations to Date: 1 No Shows to Date: 0 Discharge Status: Improved Function Independent with HEP Patient Elected to Stop Discharge Summary: Patient continued to have symptoms but improved function. She elected to stop PT and DC to HEP. States that she feels comfortable continuing exercises on own at this time. Educated to follow up with doctor with continued pain compliants. Electronically signed by: Chelsea Estes PT Please sign and return to therapist. Thank you for your referral.
== END 2021-05-10 13:33 | disposition home or self-care (01) ==
LOC: HO.PTCHIC 10:00
PROVIDERS: PCP Internal Medicine; Visit Provider Orthopaedic Surgery
DX: M75.41 Impingement syndrome of right shoulder (principal)
CPT/HCPCS: 97014; 97110; 97140; 97162

== ENCOUNTER → 2021-03-25 08:13 | Outpatient (BNVA) | payer MEDICARE, MEDICAID, SELFPAY | PROVIDERS: Visit Provider Orthopaedic Surgery | DX: M75.41 Impingement syndrome of right shoulder (principal); M96.1 Postlaminectomy syndrome, not elsewhere classified; R73.03 Prediabetes; Z87.891 Personal history of nicotine dependence | CPT/HCPCS: 99212 ==

== ENCOUNTER 2021-06-03 08:36 | Outpatient (REF) | payer MEDICARE, MEDICAID, SELFPAY ==
[2021-06-03 11:16] LABS: MANUAL DIFF FLAG NO
[2021-06-03 11:19] LABS: Basophils Absolute Auto 0.1 X10*3/uL (0.0-0.2); Basophils Percent Auto 1.2 % (0-2); Eosinophils Absolute Auto 0.3 X10*3/uL (0.0-0.4); Eosinophils Percent Auto 4.4 % (0-4); Hematocrit 42.6 % (37.0-47.0); Hemoglobin 13.6 g/dl (12.0-16.0); Imm Gran Abs Auto 0.03 X10*3/uL (0.00-0.03); Imm Gran Pct Auto 0.4 % (0.0-0.4); Lymphocytes Percent Auto 26.3 % (20-40); Mean Corpuscular HGB Conc 31.9 g/dl (31.0-35.0); Mean Corpuscular Hemoglobin 28.6 pg (27.0-33.0); Mean Corpuscular Volume 89.7 fL (80.0-98.0); Monocytes Absolute Auto 0.8 X10*3/uL (0.1-1.2); Monocytes Percent Auto 10.3 % (2-11); Neutrophils Absolute Auto 4.3 x10*3/uL (2.0-8.3); Neutrophils Percent Auto 57.4 % (45-73); Platelet Count 306 X10*3/uL (160-400); Red Blood Count 4.75 X10*6/uL (4.20-5.50); Red Cell Distribution Width 14.5 % (11.0-16.0); White Blood Count 7.5 X10*3/uL (4.8-10.8)
[2021-06-03 11:39] LABS: Alanine Aminotransferase 16 U/L (0-31); Albumin Level 4.2 g/dL (3.5-5.0); Alkaline Phosphatase 79 U/L (39-117); Anion Gap 15 (12-20); Aspartate Amino Transferase 14 U/L (5-31); Bilirubin Total 0.3 mg/dL (0.0-1.0); Blood Urea Nitrogen 14 mg/dL (9-16); C Reactive Protein 0.86 mg/dL (< or = 0.50); Calcium 9.4 mg/dL (8.4-10.2); Carbon Dioxide 27 mmol/L (22-29); Chloride 106 mmol/L (96-108); Estimated Glomerular Filt Rate > 60; Glucose Random 102 mg/dL (60-115); Potassium 4.7 mmol/L (3.3-5.1); Sodium 143 mmol/L (135-145); Total Protein 6.7 g/dL (6.5-8.0)
[2021-06-03 12:38] LABS: Erythrocyte Sedimentation Rate 16 MM/HR (0-20)
== END 2021-06-03 08:37 | disposition home or self-care (01) ==
LOC: HO.HMGCLDS 08:36
PROVIDERS: PCP Internal Medicine; Visit Provider Nurse Practitioner Family
DX: L40.50 Arthropathic psoriasis, unspecified (principal)
CPT/HCPCS: 36415; 80053; 85025; 85652; 86140

== ENCOUNTER → 2021-08-31 08:48 | Outpatient (BNVA) | payer MEDICARE, MEDICAID, SELFPAY | PROVIDERS: PCP Internal Medicine; Visit Provider Nurse Practitioner Family | DX: G89.4 Chronic pain syndrome (principal); M96.1 Postlaminectomy syndrome, not elsewhere classified | CPT/HCPCS: 99212 ==

== ENCOUNTER → 2021-09-10 14:39 | Outpatient (BNVA) | payer MEDICARE, MEDICAID, SELFPAY | PROVIDERS: PCP Internal Medicine; Visit Provider Physician Assistant | DX: M79.604 Pain in right leg (principal); M79.605 Pain in left leg | CPT/HCPCS: 99212 ==

== ENCOUNTER 2021-11-05 10:56 | Day surgery (SDC) | payer MEDICARE, MEDICAID, SELFPAY ==
[2021-11-01 11:23] VITALS: BMI 38.6
--- NOTE | 2021-11-04 09:14 | HO.ANESPROP2 ---
Documented by User: Mary Hung NP 11/04/21 09:18 HPI - Anesthesia Eval Consult details Narrative: 61yo F for Spinal Cord Stimulation Implant stim trial at other facility s/p shoulder arthroscopy 12/2020 with GA-LMA 4 PMFSH Active Problems Active Problems: All Active Problems (Updated 11/01/21 @ 11:17 by Maisha Anand RN) Rotator cuff tendonitis (Acute) Impingement syndrome, shoulder, left (Acute) Psoriasis (Acute) Abdominal pain (Acute) Difficulty sleeping (Acute) Chronic GERD (Acute) Psoriatic arthritis (Acute) Flushing (Acute) Severe major depression (Acute) Skin growth (Acute) Grieving (Acute) Impingement syndrome of right shoulder (Acute) Obesity due to excess calories (Acute) Hand paresthesia (Acute) Leg pain, bilateral (Acute) Chest pain (Acute) JOHN positive (Acute) Chronic pain syndrome (Acute) Postlaminectomy syndrome of lumbar region (Acute) Postlaminectomy syndrome of cervical region (Acute) Chronic GERD (Acute) Depression, major, in remission (Acute) Periodic limb movement disorder (Acute) Sleeping difficulty (Acute) Sciatica, right side (Acute) Asthma, moderate (Acute) Constipation by delayed colonic transit (Acute) Pre-diabetes (Acute) DJD (degenerative joint disease) (Acute) Lipid disorder (Acute) Bursitis of right shoulder (Acute) Right shoulder pain (Acute) Past Medical History Medical History (Updated 11/01/21 @ 11:17 by Maisha Anand RN) JOHN positive Asthma, moderate Back pain Bursitis of right shoulder Chest pain Chronic GERD Chronic pain syndrome Constipation by delayed colonic transit Degenerative disc disease Depression, major, in remission DJD (degenerative joint disease) Fibromyalgia Lipid disorder Periodic limb movement disorder Postlaminectomy syndrome of cervical region Postlaminectomy syndrome of lumbar region Pre-diabetes Right shoulder pain S/P placement of nerve stimulator Sciatica, right side Sleeping difficulty Spinal stenosis Family History Family History Father No problems noted. Mother No problems noted. Other Mental health disorder Surgical History Surgical History (Updated 11/01/21 @ 11:22 by Maisha Anand RN) H/O colonoscopy H/O shoulder surgery H/O spinal fusion H/O: hysterectomy History of esophagogastroduodenoscopy (EGD) History of gastric bypass History of sleeve gastrectomy Hx of cholecystectomy Status post bariatric surgery Social History Social History Housing: House Are you a primary foster care social worker to a significant other at home: No Do you presently have visiting nurse or other home services: No Alcohol intake: current Alcohol intake frequency: holidays/special occasions only Patient Tobacco Use Status: Former Tobacco user Quit Date: 2009 Tobacco use type: Cigarette Years Smoked: 25 Smoked in Last 30 Days: No Use of substances other than those prescribed or required for medical reasons: No Are you DNR?: No Advance Directives: No Advance Directives Information Provided: Yes Current occupational status: disabled Current occupation: right handed Meds Allergies Allergy/AdvReac Type Severity Reaction Status Date / Time adhesive tape [ADHESIVE TAPE] Allergy Severe SKIN TEARS Verified 11/05/21 11:07 pramipexole Allergy Severe Diarrhea Verified 11/05/21 11:07 carisoprodol [From SOMA] Allergy Intermediate SWELLING, Verified 11/05/21 11:07 RASH gabapentin Allergy Intermediate leg Verified 11/05/21 11:07 swelling sulfamethoxazole Allergy Intermediate SWELLING,RA Verified 11/05/21 11:07 [From BACTRIM] SH trimethoprim [From BACTRIM] Allergy Intermediate SWELLING,RA Verified 11/05/21 11:07 SH Home Medications Medication Instructions Recorded Confirmed Last Taken Type albuterol sulfate 90 mcg/actuation 2 puff INHALATION Q6H PRN 10/13/20 11/01/21 Unknown History aerosol inhaler meloxicam 7.5 mg tablet 7.5 mg PO DAILY 08/31/21 11/01/21 Unknown History Exam Exam Date and Time: November 04, 2021 0914 Height,Weight and Vital Signs: Height 5 ft 4 in Weight 102.058 kg Pertinent Lab Results Pertinent Lab Results: Laboratory Tests 06/03/21 06/03/21 08:42 08:42 WBC 7.5 Hgb 13.6 Hct 42.6 Plt Count 306 Sodium 143 Potassium 4.7 Chloride 106 Carbon Dioxide 27 BUN 14 Creatinine 0.77 Narrative Narrative: EKG 2020 Vent. Rate : 067 BPM ? ? Atrial Rate : 067 BPM ?? P-R Int : 164 ms? QRS Dur : 086 ms ? ? QT Int : 408 ms ? ? ? P-R-T Axes : 044 001 019 degrees ?? QTc Int : 431 ms ? Normal sinus rhythm Normal ECG When compared with ECG of 11-JUL-2018 12:20, No significant change was found Assessment and Plan Assessment Anesthesia Assessment: Chart Reviewed Documented by User: Giles Khan MD 11/05/21 12:45 HPI - Anesthesia Eval Consult details Narrative: 61yo F for Spinal Cord Stimulation Implant GEORGIE recent excision of neck cyst . stim trial at other facility neck fusion , pain in neck with radtion to b/l UE , with tingling and numbness . back pain with radiation to b/l LE with tingling and numbness . Has had back surgery Patient with h/o neck and back surgery poor dentition, obesity and other comorbidities . Discussed with the patient and informed her of increased risk during the perioperative period . Patient accepts the risks . s/p shoulder arthroscopy 12/2020 with GA-LMA 4 PMFSH Past Medical History Medical History (Updated 11/01/21 @ 11:17 by Maisha Anand RN) JOHN positive Asthma, moderate Back pain Bursitis of right shoulder Chest pain Chronic GERD Chronic pain syndrome Constipation by delayed colonic transit Degenerative disc disease Depression, major, in remission DJD (degenerative joint disease) Fibromyalgia Lipid disorder Periodic limb movement disorder Postlaminectomy syndrome of cervical region Postlaminectomy syndrome of lumbar region Pre-diabetes Right shoulder pain S/P placement of nerve stimulator Sciatica, right side Sleeping difficulty Spinal stenosis Family History Family History Father No problems noted. Mother No problems noted. Other Mental health disorder Family history of problems with anesthesia: No Surgical History Surgical History (Updated 11/01/21 @ 11:22 by Masiha Anand RN) H/O colonoscopy H/O shoulder surgery H/O spinal fusion H/O: hysterectomy History of esophagogastroduodenoscopy (EGD) History of gastric bypass History of sleeve gastrectomy Hx of cholecystectomy Status post bariatric surgery History of Problems with Anesthesia: No Social History Social History Housing: House Are you a primary foster care social worker to a significant other at home: No Do you presently have visiting nurse or other home services: No Alcohol intake: current Alcohol intake frequency: holidays/special occasions only Patient Tobacco Use Status: Former Tobacco user Quit Date: 2009 Tobacco use type: Cigarette Years Smoked: 25 Smoked in Last 30 Days: No Use of substances other than those prescribed or required for medical reasons: No Are you DNR?: No Advance Directives: No Advance Directives Information Provided: Yes Current occupational status: disabled Current occupation: right handed Meds Allergies Allergy/AdvReac Type Severity Reaction Status Date / Time adhesive tape [ADHESIVE TAPE] Allergy Severe SKIN TEARS Verified 11/05/21 11:07 pramipexole Allergy Severe Diarrhea Verified 11/05/21 11:07 carisoprodol [From SOMA] Allergy Intermediate SWELLING, Verified 11/05/21 11:07 RASH gabapentin Allergy Intermediate leg Verified 11/05/21 11:07 swelling sulfamethoxazole Allergy Intermediate SWELLING,RA Verified 11/05/21 11:07 [From BACTRIM] SH trimethoprim [From BACTRIM] Allergy Intermediate SWELLING,RA Verified 11/05/21 11:07 SH Home Medications Medication Instructions Recorded Confirmed Last Taken Type albuterol sulfate 90 mcg/actuation 2 puff INHALATION Q6H PRN 10/13/20 11/01/21 Unknown History aerosol inhaler meloxicam 7.5 mg tablet 7.5 mg PO DAILY 08/31/21 11/01/21 Unknown History Exam Airway Mallampati Class: II TM Dist: >3cm Neck ROM: Limited Loose/Missing/Broken Teeth: Yes (Multiple chipped teeth , missing teeth . Overall Poor dentation . ) Heart: S1 S2 Lungs: b/l breath sounds Assessment and Plan Assessment Anesthesia Assessment: Anesthesia Plan Discussed Final Anesthetic Review Family History of Problems with Anesthesia: No History of Problems with Anesthesia: No NPO: Yes ASA Class: III Final Preanesthetic Review: No Changes in Pt Med Stat, Meds/Allgs Chart Reviewed, Consent Obtained/Reviewed and Anes Risks/Benef Reviewed Patient Risk: High Procedure Risk: Intermediate Anesthetic Plan Anesthetic Plan: GA Disposition: Standard PACU
[2021-11-05] VITALS (13 sets, daily range): BP systolic 111–139; BP diastolic 48–73; PULSE 77–99; RESP 12–21; TEMP 36.3–36.7; O2SAT 93–97; BMI 37.9
--- NOTE | ~2021-11-05 | FL_ITS ---
EXAMINATION: XR FLUOROSCOPY WITH IMAGES CLINICAL INFORMATION: Spinal cord stimulator. COMPARISON: Chest radiograph 09/08/2020, CT abdomen and pelvis 09/08/2020 TECHNIQUE: Fluoroscopy performed by Dr. Junior Gloria. Fluoroscopy time: 4.7 minutes DAP: 26.6 mGycm2 Images: 4 FINDINGS: There are 2 spinal electrodes leads ascending the posterior spinal canal with tips at mid thoracic region. There are mild degenerative changes thoracic spine with vertebral spurring. The visualized leads appear intact. No fracture or kinking. FL/FL guidance in OR IMPRESSION: Fluoroscopy for pain management procedure.
--- NOTE | 2021-11-05 08:13 | P.OP_ITS ---
Operative Note Operative Note Date of Service: 11/05/21 Narrative: Kaylah is a very pleasant 61 y.o. female who came today into the operating room for the? implant of spinal cord stimulator Nevro for the treatment of postlaminectomy syndrome. Preoperatively patient receive? cefazolin 3 g IV approximately 30 minutes before the procedure. After obtaining informed consent the patient was brought to the operating room, SHE was positioned supine on the stretcher, [place] [employer] monitors were applied a general? anesthesia of was administered with endotracheal intubation?.? After that patient was repositioned prone on the operating table, all pressure points were protected. ?Time-out was performed delineating correct site, side, the nature of the procedure, patient's allergy, preoperative antibiotic if needed.? All operating room staff was participating in OR time-out procedure. ?Location of the? L1-L2 L3 spinous processes was injected with Local local anesthetic mixture lidocaine 2% and bupivacaine 0.5%. ? Strict midline 6 cm incision using scalpel 10 blade was made the projections of the spinous processes L1-L2-L3 . thorough hemostasis was obtained using Bovie device and? prevertebral fascia was freed from overlying tissues. Attention FIRST? was concentrated on the?L1-L2 epidural interspace.? The location of the projection of the right pedicle center of the? L3 vertebra was found on the fascia using C-arm.? ? 10 cm 14 gauge? introducer epidural needle was inserted into the fascia and advanced to??L1-L2 epidural interspace.? The advancement of the needle was performed on anterior posterior and lateral views.? Guitar wire and loss of resistance technique were used to locate epidural space.? When guitar wire was spread in the epidural fashion, epidural lead was inserted through the needle and it was advanced to?bottom of T8 level in the posterior epidural space.? Location of the lead in the posterior epidural space was verified by C-arm. After that? the location of the projection of the LEFT pedicle center of the L3 vertebra was found using C-arm.? This location was injected with mixture of lidocaine 2% and Marcaine 0.5% 5 cc.?.? 10 cm 14 gauge introducer epidural needle was inserted and advanced to? L1 - L2 epidural interspace.? The advancement of the needle was performed on anterior posterior and lateral views.? Guitar wire and loss of resistance technique were used to locate epidural space.? When guitar wire was spread in the epidural fashion, epidural lead was inserted through the needle and advanced to the? of? center of T9 in the projection? in the posterior epidural space. The needles were withdrawn, the stylette wires were removed from the epidural leads.? The anchoring devices were dislodged on the leads and advanced to the level of the ?prevertebral fascia? The anchoring devices were sutured with two 0-0? Tycron suture per each anchor to the? prevertebral fascia of the patient. The central fixation screw of each anchor was rotated until three clicks were heard.? thorough irrigation of the wound was performed and wound was packed with three vancomycin soaked? 4 x 4s. then attention was concentrated on the posterior flank? right upper buttock of the patient were the decision was made to implant the battery.? 2 cm below the lowest point of the right rib horizontal incison was made 6.5 cm long using 10 blade scalpel hemostasis was performed using -bovie.? Using sharp and dull dissection pocket for the battery was formed in caudad direction from the incision.? After that the? wound pocket was? irrigated with vancomycin containing normal saline and tunneling device was used to connect midline inc ision and buttock incision.? The epidural leads were dislodged from midline incision to the flank incision through the tunneling device.? After that they were connected to the Workstreamer HF 10 battery and HF 10 battery was connected wirelessly with testing device.? Impedance was found? satisfactory.? Anchoring? screws were fix on the back of the battery.? Tycron of 1 0 sutures were applied to the superior lateral and superior medial corners of the upper portion of the pocket? wound and after that the anchoring sutures were connected to the orifices on the battery.? Electrodes were gathered behind the body of the battery and battery was dislodged into subcutaneous pocket.? The sutures were tied and? irrigation was repeated.? After that 0? Polysorb sutures were used to close the? both wounds and the 2-0 polisorb sutures were used to apptoximate the level of the skin , [place] were applied to the skin and bacitracin ointment was applied to the staple lines. The sterile dressing comprised of several 4x4 for each wound was affixed to the skin usin medipore tape. The patient was transfered supine on the stretcher,? awaken, extubated and transferred stable to the PACU.
--- NOTE | 2021-11-05 08:13 | MHC.SHP ---
Pre-Procedural Eval Section A Date of Service: 11/05/21 Section B Chief Complaint: Postlaminectomy syndrome, Details of Present Illness: as above Relevant Family History (Specify if Yes): No Relevant Social History: None Present Medications: see Short Stay Collaborative assessment Medical History: No relevant PMH History of Previous Operations: Relevant previous surgery/procedure and date(s) Allergies: Allergies Allergy/AdvReac Type Severity Reaction Status Date / Time adhesive tape [ADHESIVE TAPE] Allergy Severe SKIN TEARS Verified 09/10/21 15:08 pramipexole Allergy Severe Diarrhea Verified 09/10/21 15:08 carisoprodol [From SOMA] Allergy Intermediate SWELLING, Verified 09/10/21 15:08 RASH gabapentin Allergy Intermediate leg Verified 09/10/21 15:08 swelling sulfamethoxazole Allergy Intermediate SWELLING,RA Verified 09/10/21 15:08 [From BACTRIM] SH trimethoprim [From BACTRIM] Allergy Intermediate SWELLING,RA Verified 09/10/21 15:08 SH Review of Systems Sugical H&P ROS: Negative: Constitution, Cardiovascular, Respiratory, Neurological, Psychiatric, Hem-Onc, Allergic/Immunologic, Gastrointestinal, Genitourinary, Musculoskeletal, Integumentary, Endocrine and Eyes/Ears/Nose/Throat Exam Surgical H&P Exam: Normal: HEENT, Normal: Heart, Normal: Lungs, Normal: Extremities, Normal: Abdomen, Normal: Skin and Normal: Neurological Plan Diagnosis/Plan: Unchanged I have reviewed the history and physical and performed a pertinent physical examination on my patient. No changes have occurred unless specified.
[2021-11-05] MEDS: Lactated Ringers 1,000 ML 100 ML IVCONT (11:35)
--- NOTE | 2021-11-05 15:08 | P.BOP_ITS ---
Brief Operative Note Date of Service: 11/05/21 Pre-op diagnosis: postlaminectomy syndrome Post-op diagnosis: same Procedure: implantation of SCS Nevro Implants: Nevro HF10 battery and 2 epidural leads Surgeon: Junior Gloria MD Anesthesia: GETA Was an Web Site Project Manager used for this Procedure?: No Estimated blood loss (mL): 16 Pathology: none sent
[2021-11-05] MEDS: fentaNYL citrate/PF 100 MCG/2 ML VIAL 25 MCG IVPUSH ×3 (15:27→15:57)
[2021-11-05] MEDS: oxyCODONE HCl Immed Release 5 MG TABLET PO (15:28)
[2021-11-05] MEDS: Acetaminophen 325 MG TABLET 650 MG PO (15:28)
== END 2021-11-05 17:13 | disposition home or self-care (01) ==
PROVIDERS: PCP Internal Medicine; Visit Provider Anesthesiology
PROC: (CPT 63685; principal; 2021-11-05 12:30)
DX: M96.1 Postlaminectomy syndrome, not elsewhere classified (principal); M54.50 Low back pain, unspecified; G89.4 Chronic pain syndrome; M54.2 Cervicalgia; M48.00 Spinal stenosis, site unspecified; M54.31 Sciatica, right side; M25.552 Pain in left hip; M25.551 Pain in right hip; M79.652 Pain in left thigh; M79.651 Pain in right thigh; M10.9 Gout, unspecified; R20.0 Anesthesia of skin; R51.9 Headache, unspecified; J45.909 Unspecified asthma, uncomplicated; R73.03 Prediabetes; Z79.899 Other long term (current) drug therapy; Z88.2 Allergy status to sulfonamides; Z88.8 Allergy status to other drugs, medicaments and biological substances; Z98.890 Other specified postprocedural states; Z98.84 Bariatric surgery status; Z90.3 Acquired absence of stomach [part of]; Z90.49 Acquired absence of other specified parts of digestive tract; Z91.040 Latex allergy status; Z87.891 Personal history of nicotine dependence
CPT/HCPCS: 63685; 63650 ×2; C1713; C1778; J0330; J0690; J1100; J2250; J2370; J2405; J3010; J3370

== ENCOUNTER → 2021-11-11 10:14 | Outpatient (BNVA) | payer MEDICARE, MEDICAID, SELFPAY | PROVIDERS: PCP Internal Medicine; Visit Provider Anesthesiology | DX: Z13.89 Encounter for screening for other disorder (principal) ==

== ENCOUNTER → 2021-11-18 10:25 | Outpatient (BNVA) | payer MEDICARE, MEDICAID, SELFPAY | PROVIDERS: PCP Internal Medicine; Visit Provider Nurse Practitioner Family | DX: Z48.89 Encounter for other specified surgical aftercare (principal); G89.4 Chronic pain syndrome; M96.1 Postlaminectomy syndrome, not elsewhere classified; Z96.89 Presence of other specified functional implants | CPT/HCPCS: 99212 ==

== ENCOUNTER 2021-12-30 10:53 | Outpatient (REF) | payer MEDICARE, MEDICAID, SELFPAY ==
[2021-12-30 13:47] LABS: MANUAL DIFF FLAG NO
[2021-12-30 13:53] LABS: Basophils Absolute Auto 0.1 X10*3/uL (0.0-0.2); Basophils Percent Auto 1.3 % (0-2); Eosinophils Absolute Auto 0.2 X10*3/uL (0.0-0.4); Eosinophils Percent Auto 3.4 % (0-4); Hematocrit 42.7 % (37.0-47.0); Hemoglobin 13.6 g/dl (12.0-16.0); Imm Gran Abs Auto 0.02 X10*3/uL (0.00-0.03); Imm Gran Pct Auto 0.3 % (0.0-0.4); Lymphocytes Absolute Auto 2.8 X10*3/uL (1.2-4.9); Lymphocytes Percent Auto 39.9 % (20-40); Mean Corpuscular HGB Conc 31.9 g/dl (31.0-35.0); Mean Corpuscular Hemoglobin 28.1 pg (27.0-33.0); Mean Corpuscular Volume 88.2 fL (80.0-98.0); Monocytes Absolute Auto 0.7 X10*3/uL (0.1-1.2); Monocytes Percent Auto 9.7 % (2-11); Neutrophils Absolute Auto 3.2 x10*3/uL (2.0-8.3); Neutrophils Percent Auto 45.4 % (45-73); Platelet Count 272 X10*3/uL (160-400); Red Blood Count 4.84 X10*6/uL (4.20-5.50)
[2021-12-30 14:07] LABS: Estimated Average Glucose 120 mg/dL; Hemoglobin A1c % 5.8 %
[2021-12-30 14:08] LABS: Alanine Aminotransferase 18 U/L (0-31); Albumin Level 4.2 g/dL (3.5-5.0); Alkaline Phosphatase 68 U/L (39-117); Anion Gap 12 (12-20); Aspartate Amino Transferase 15 U/L (5-31); Bilirubin Total 0.4 mg/dL (0.0-1.0); Blood Urea Nitrogen 9 mg/dL (9-16); Calcium 8.9 mg/dL (8.4-10.2); Carbon Dioxide 27 mmol/L (22-29); Chloride 105 mmol/L (96-108); Cholesterol 262 mg/dL; Estimated Glomerular Filt Rate > 60; Glucose Fasting 98 mg/dL (60-99); HDL Cholesterol 44 mg/dL; LDL Cholesterol Calculated 189 mg/dl; Potassium 4.5 mmol/L (3.3-5.1); Sodium 139 mmol/L (135-145); Total Protein 6.7 g/dL (6.5-8.0); Triglycerides 149 mg/dL
== END 2021-12-30 10:54 | disposition home or self-care (01) ==
LOC: HO.HMGCLDS 10:53
PROVIDERS: PCP Internal Medicine; Visit Provider Internal Medicine
DX: F32.2 Major depressive disorder, single episode, severe without psychotic features (principal); F41.1 Generalized anxiety disorder; G47.61 Periodic limb movement disorder; K21.9 Gastro-esophageal reflux disease without esophagitis; R73.03 Prediabetes; E78.9 Disorder of lipoprotein metabolism, unspecified
CPT/HCPCS: 36415; 80053; 80061; 83036; 85025

== ENCOUNTER 2022-01-21 08:45 | Outpatient (REF) | payer MEDICARE, MEDICAID, SELFPAY ==
[2022-01-21 11:49] LABS: Alanine Aminotransferase 14 U/L (0-31); Albumin Level 4.1 g/dL (3.5-5.0); Alkaline Phosphatase 71 U/L (39-117); Anion Gap 12 (12-20); Aspartate Amino Transferase 12 U/L (5-31); Bilirubin Direct 0.2 mg/dL (0.0-0.5); Bilirubin Total 0.2 mg/dL (0.0-1.0); Blood Urea Nitrogen 15 mg/dL (9-16); Calcium 9.1 mg/dL (8.4-10.2); Carbon Dioxide 27 mmol/L (22-29); Chloride 108 mmol/L (96-108); Estimated Glomerular Filt Rate > 60; Glucose Random 103 mg/dL (60-115); Potassium 4.6 mmol/L (3.3-5.1); Sodium 142 mmol/L (135-145); Total Protein 6.6 g/dL (6.5-8.0)
== END 2022-01-21 08:46 | disposition home or self-care (01) ==
LOC: HO.HMGCLDS 08:45
PROVIDERS: Visit Provider Physical Medicine & Rehabilitation
DX: G89.4 Chronic pain syndrome (principal)
CPT/HCPCS: 36415; 80053; 82248

== ENCOUNTER → 2022-02-07 12:51 | Outpatient (BNVA) | payer MEDICARE, MEDICAID, SELFPAY | PROVIDERS: PCP Internal Medicine; Visit Provider Anesthesiology | DX: G89.4 Chronic pain syndrome (principal); M96.1 Postlaminectomy syndrome, not elsewhere classified | CPT/HCPCS: 99212 ==

== ENCOUNTER 2022-04-01 07:24 | Outpatient (REF) | payer MEDICARE, MEDICAID, SELFPAY ==
--- NOTE | ~2022-04-01 | XR_ITS ---
EXAMINATION: XR KNEES AP STANDING, BILATERAL XR KNEE, 2 VIEWS, RIGHT CLINICAL INFORMATION: Right knee pain. COMPARISON: Right and left knee radiographs dated 05/11/2018. TECHNIQUE: Standing AP view of both knees and lateral and sunrise views of the right knee. FINDINGS: Right knee: Moderate medial compartment joint space narrowing. Tricompartmental marginal osteophytes. No osseous erosion. No fracture or dislocation. No significant joint effusion. Left knee: Moderate medial compartment joint space narrowing. Medial and lateral compartment marginal osteophytes. No concerning lytic or blastic osseous lesion. No fracture or dislocation. No abnormal soft tissue calcification. XR/XR knee RT 2V IMPRESSION: Right knee: Moderate tricompartmental osteoarthritis, progressed when compared to the prior radiographs. Left knee: Moderate medial and lateral compartment osteoarthritis, not significantly changed. Evaluation of the patellofemoral compartment limited on the AP radiograph.
--- NOTE | ~2022-04-01 | XR_ITS ---
EXAMINATION: XR KNEES AP STANDING, BILATERAL XR KNEE, 2 VIEWS, RIGHT CLINICAL INFORMATION: Right knee pain. COMPARISON: Right and left knee radiographs dated 05/11/2018. TECHNIQUE: Standing AP view of both knees and lateral and sunrise views of the right knee. FINDINGS: Right knee: Moderate medial compartment joint space narrowing. Tricompartmental marginal osteophytes. No osseous erosion. No fracture or dislocation. No significant joint effusion. Left knee: Moderate medial compartment joint space narrowing. Medial and lateral compartment marginal osteophytes. No concerning lytic or blastic osseous lesion. No fracture or dislocation. No abnormal soft tissue calcification. XR/XR knee standing BI IMPRESSION: Right knee: Moderate tricompartmental osteoarthritis, progressed when compared to the prior radiographs. Left knee: Moderate medial and lateral compartment osteoarthritis, not significantly changed. Evaluation of the patellofemoral compartment limited on the AP radiograph.
== END 2022-04-01 07:25 | disposition home or self-care (01) ==
LOC: HO.HOSX 07:24
PROVIDERS: Visit Provider Physician Assistant
DX: M25.861 Other specified joint disorders, right knee (principal); M25.562 Pain in left knee
CPT/HCPCS: 20610; 73560; 73565; 99212; J1040

== ENCOUNTER 2022-04-12 13:15 | Outpatient (REF) | payer MEDICARE, MEDICAID, SELFPAY ==
--- NOTE | ~2022-04-12 | MR_ITS ---
EXAMINATION: MR KNEE WITHOUT AND WITH CONTRAST, RIGHT CLINICAL INFORMATION: Right knee pain. COMPARISON: Right knee radiographs dated 04/01/2022. TECHNIQUE: MRI of the knee was performed before and after the intravenous administration of 10 mL Gadavist on a high-field scanner. FINDINGS: MENISCI: Medial meniscus: Mild degenerative intrasubstance signal within the meniscal body without articular surface tearing. Lateral meniscus: Partially discoid lateral meniscus with irregular inner margin tearing of the meniscal body. Degenerative intrasubstance signal within the anterior horn and root. LIGAMENTS: Cruciate: Intact. Collateral: Intact. EXTENSOR MECHANISM: Intact quadriceps and patellar tendons. Superior patellar enthesophytes. ARTICULAR CARTILAGE/BONE: Patellofemoral compartment: Patellar median ridge articular cartilage signal heterogeneity and surface irregularity with areas of dxkj-[id number]-mnshckvxz fissuring. Diffuse trochlear articular cartilage thinning with signal heterogeneity and surface irregularity. Marginal osteophytes. Medial compartment: Diffuse articular cartilage thinning with signal heterogeneity and surface irregularity. Marginal osteophytes. Lateral compartment: Diffuse articular cartilage signal heterogeneity and surface irregularity. Areas of fdgx-qwlr-cezdgfnrh fissuring at the posterior weightbearing lateral femoral condyle. Marginal osteophytes. Within the posterior aspect of the proximal fibula, there is a subcortical cystic focus measuring 0.5 cm without concerning features. Minimal, if any, postcontrast enhancement. Findings likely represent a benign cystic lesion. No concerning lytic or blastic osseous lesion. JOINT FLUID AND BURSAE: Small joint effusion. Multiple posterior loose bodies measuring up to 1.4 and 0.8 cm. No significant postcontrast enhancement. MR/MR knee RT wo/w con IMPRESSION: 1. Partially discoid lateral meniscus with irregular inner margin tearing of the meniscal body. Degenerative intrasubstance signal extends into the anterior horn and root. 2. Degenerative intrasubstance signal within the medial meniscal body without articular surface tearing. 3. Ypgt-rn-[id number] tricompartmental osteoarthritis. Small joint effusion with posterior loose bodies measuring up to 1.4 and 0.8 cm.
== END 2022-04-12 13:16 | disposition home or self-care (01) ==
LOC: HO.MRI 13:15
PROVIDERS: Visit Provider Physician Assistant
DX: M25.861 Other specified joint disorders, right knee (principal)
CPT/HCPCS: 73723; A9585

== ENCOUNTER → 2022-04-20 08:17 | Outpatient (BNVA) | payer MEDICARE, MEDICAID, SELFPAY | PROVIDERS: PCP Internal Medicine; Visit Provider Physician Assistant | DX: M17.11 Unilateral primary osteoarthritis, right knee (principal) | CPT/HCPCS: Q3014 ==

== ENCOUNTER 2022-06-02 14:27 | Outpatient (REF) | payer MEDICARE, MEDICAID, SELFPAY ==
[2022-06-02 14:57] LABS: MANUAL DIFF FLAG NO
--- NOTE | 2022-06-02 14:57 | ECG_ITS ---
Test Reason : PRE OP Blood Pressure : / mmHG Vent. Rate : 068 BPM Atrial Rate : 068 BPM P-R Int : 138 ms QRS Dur : 082 ms QT Int : 384 ms P-R-T Axes : -10 -02 020 degrees QTc Int : 408 ms Normal sinus rhythm Normal ECG When compared with ECG of 08-SEP-2020 14:50, No significant change was found Referred By: López Wills Electronically Signed By:ELIEL ROMAN MD
[2022-06-02 15:26] LABS: Basophils Absolute Auto 0.1 X10*3/uL (0.0-0.2); Basophils Percent Auto 1.4 % (0-2); Eosinophils Absolute Auto 0.3 X10*3/uL (0.0-0.4); Eosinophils Percent Auto 3.1 % (0-4); Hematocrit 40.4 % (37.0-47.0); Hemoglobin 12.7 g/dl (12.0-16.0); Imm Gran Abs Auto 0.03 X10*3/uL (0.00-0.03); Imm Gran Pct Auto 0.4 % (0.0-0.4); Lymphocytes Percent Auto 35.6 % (20-40); Mean Corpuscular HGB Conc 31.4 g/dl (31.0-35.0); Mean Corpuscular Volume 89.2 fL (80.0-98.0); Mean Platelet Volume 10.8 fL (9.4-12.3); Monocytes Absolute Auto 0.7 X10*3/uL (0.1-1.2); Monocytes Percent Auto 8.6 % (2-11); Neutrophils Absolute Auto 4.3 x10*3/uL (2.0-8.3); Neutrophils Percent Auto 50.9 % (45-73); Platelet Count 268 X10*3/uL (160-400); Red Blood Count 4.53 X10*6/uL (4.20-5.50); Red Cell Distribution Width 14.1 % (11.0-16.0); White Blood Count 8.5 X10*3/uL (4.8-10.8)
[2022-06-02 15:27] LABS: Basophils Absolute Auto 0.1 X10*3/uL (0.0-0.2); Basophils Percent Auto 1.2 % (0-2); Eosinophils Absolute Auto 0.3 X10*3/uL (0.0-0.4); Eosinophils Percent Auto 3.1 % (0-4); Hematocrit 40.4 % (37.0-47.0); Hemoglobin 12.6 g/dl (12.0-16.0); Imm Gran Abs Auto 0.04 X10*3/uL (0.00-0.03); Imm Gran Pct Auto 0.5 % (0.0-0.4); Lymphocytes Absolute Auto 2.8 X10*3/uL (1.2-4.9); Lymphocytes Percent Auto 33.9 % (20-40); Mean Corpuscular HGB Conc 31.2 g/dl (31.0-35.0); Mean Corpuscular Hemoglobin 27.8 pg (27.0-33.0); Mean Corpuscular Volume 89.2 fL (80.0-98.0); Mean Platelet Volume 10.7 fL (9.4-12.3); Monocytes Absolute Auto 0.8 X10*3/uL (0.1-1.2); Monocytes Percent Auto 9.6 % (2-11); Neutrophils Absolute Auto 4.3 x10*3/uL (2.0-8.3); Neutrophils Percent Auto 51.7 % (45-73); Platelet Count 270 X10*3/uL (160-400); Red Blood Count 4.53 X10*6/uL (4.20-5.50); Red Cell Distribution Width 14.2 % (11.0-16.0); White Blood Count 8.3 X10*3/uL (4.8-10.8)
[2022-06-02 15:51] LABS: Alanine Aminotransferase 13 U/L (0-31); Albumin Level 4.3 g/dL (3.5-5.0); Alkaline Phosphatase 73 U/L (39-117); Anion Gap 17 (12-20); Aspartate Amino Transferase 14 U/L (5-31); Bilirubin Total 0.3 mg/dL (0.0-1.0); Blood Urea Nitrogen 9 mg/dL (9-16); C Reactive Protein 0.27 mg/dL (< or = 0.50); Carbon Dioxide 25 mmol/L (22-29); Chloride 106 mmol/L (96-108); Estimated Glomerular Filt Rate > 60; Glucose Random 76 mg/dL (60-115); Lipase 13 U/L (8-78); Potassium 4.3 mmol/L (3.3-5.1); Sodium 144 mmol/L (135-145); Total Protein 6.9 g/dL (6.5-8.0)
[2022-06-04 14:36] LABS: Immunoglobulin A 195 mg/dL (70-320)
[2022-06-07 05:32] LABS: Transglutaminase IgA <1.0 U/mL
== END 2022-06-02 14:28 | disposition home or self-care (01) ==
LOC: HO.LAB 14:27
PROVIDERS: Absent Provider Orthopaedic Surgery; PCP Internal Medicine; Visit Provider Nurse Practitioner Family
DX: Z01.812 Encounter for preprocedural laboratory examination (principal); Z01.810 Encounter for preprocedural cardiovascular examination; R10.13 Epigastric pain; R11.0 Nausea
CPT/HCPCS: 36415; 80053; 82784; 83690; 85025; 86140; 86364; 93005

== ENCOUNTER → 2022-06-23 12:51 | Outpatient (BNVA) | payer MEDICARE, MEDICAID, SELFPAY | PROVIDERS: PCP Internal Medicine; Visit Provider Physician Assistant | DX: M17.11 Unilateral primary osteoarthritis, right knee (principal) | CPT/HCPCS: 99212 ==

== ENCOUNTER 2022-06-28 08:53 | Day surgery (SDC) | payer MEDICARE, MEDICAID, SELFPAY ==
[2022-06-13 11:31] VITALS: BP 110/64; PULSE 98; RESP 20; O2SAT 95; BMI 36.3
--- NOTE | 2022-06-13 12:03 | P.CONAN_ITS ---
HPI - Anesthesia Eval Consult details Narrative: 62yo F for Right ?Knee Replacement Total Spinal Stim in situ Tramadol TID PMFSH Active Problems Active Problems: All Active Problems (Updated 06/13/22 @ 11:24 by Maisha Anand RN) Rotator cuff tendonitis (Acute) Impingement syndrome, shoulder, left (Acute) Psoriasis (Acute) Abdominal pain (Acute) Difficulty sleeping (Acute) Chronic GERD (Acute) Psoriatic arthritis (Acute) Flushing (Acute) Severe major depression (Acute) Skin growth (Acute) Grieving (Acute) Impingement syndrome of right shoulder (Acute) Obesity due to excess calories (Acute) Hand paresthesia (Acute) Leg pain, bilateral (Acute) Anxiety, generalized (Acute) S/P insertion of spinal cord stimulator (Acute) Medicare annual wellness visit, subsequent (Acute) Acute pain of right knee (Acute) Psoriatic arthropathy (Acute) Internal derangement of right knee (Acute) Pain management (Acute) Osteoarthritis of right knee (Acute) Right shoulder pain (Acute) Bursitis of right shoulder (Acute) Lipid disorder (Acute) DJD (degenerative joint disease) (Acute) Pre-diabetes (Acute) Constipation by delayed colonic transit (Acute) Asthma, moderate (Acute) Sciatica, right side (Acute) Sleeping difficulty (Acute) Periodic limb movement disorder (Acute) Depression, major, in remission (Acute) Chronic GERD (Acute) Postlaminectomy syndrome of cervical region (Acute) Postlaminectomy syndrome of lumbar region (Acute) Chronic pain syndrome (Acute) JOHN positive (Acute) Chest pain (Acute) Past Medical History Medical History (Updated 06/13/22 @ 11:24 by Maisha Anand RN) JOHN positive Asthma, moderate Back pain Bursitis of right shoulder Chest pain Chronic GERD Chronic pain syndrome Constipation by delayed colonic transit Degenerative disc disease Depression, major, in remission DJD (degenerative joint disease) Fibromyalgia History of COVID-19 Lipid disorder Periodic limb movement disorder Postlaminectomy syndrome of cervical region Postlaminectomy syndrome of lumbar region Pre-diabetes Right shoulder pain S/P placement of nerve stimulator Sciatica, right side Sleeping difficulty Spinal stenosis Family History Family History Father No problems noted. Mother No problems noted. Other Mental health disorder Family history of problems with anesthesia: No Surgical History Surgical History (Updated 06/13/22 @ 11:23 by Maisha Anand RN) H/O colonoscopy H/O shoulder surgery H/O spinal fusion H/O: hysterectomy History of esophagogastroduodenoscopy (EGD) History of gastric bypass History of lumbar fusion History of sleeve gastrectomy Hx of cholecystectomy History of Problems with Anesthesia: No Social History Social History Housing: House Are you a primary career placement services counselor to a significant other at home: No Do you presently have visiting nurse or other home services: No Alcohol intake: current Alcohol intake frequency: holidays/special occasions only Patient Tobacco Use Status: Former Tobacco user Quit Date: age 49 Tobacco use type: Cigarette Years Smoked: 30 e-Cigarette/Vaping Use: Never Used Current occupational status: disabled Current occupation: right handed Cognitive needs: No Hearing needs: No Vision needs: Yes Narrative Narrative: No recent illness this week. No CP/SOB Meds Allergies Allergy/AdvReac Type Severity Reaction Status Date / Time adhesive tape [ADHESIVE TAPE] Allergy Severe SKIN TEARS Verified 04/12/22 11:24 pramipexole Allergy Severe Diarrhea Verified 04/12/22 11:24 adalimumab [From Humira] Allergy Intermediate Itching Verified 06/01/22 09:51 carisoprodol [From SOMA] Allergy Intermediate SWELLING, Verified 04/12/22 11:24 RASH cephalexin Allergy Intermediate Itching Verified 06/13/22 11:28 gabapentin Allergy Intermediate leg Verified 04/12/22 11:24 swelling sulfamethoxazole Allergy Intermediate SWELLING,RA Verified 04/12/22 11:24 [From BACTRIM] SH trimethoprim [From BACTRIM] Allergy Intermediate SWELLING,RA Verified 04/12/22 11:24 SH Home Medications Medication Instructions Recorded Confirmed Last Taken Type albuterol sulfate 90 mcg/actuation 2 puff inhalation Q6H PRN 10/13/20 06/13/22 Unknown History aerosol inhaler Shortness Of Breath naproxen 500 mg tablet 500 mg PO BID PRN pain 04/01/22 06/13/22 Unknown History duloxetine 60 mg capsule,delayed 60 mg PO QAM 06/13/22 06/13/22 Unknown History release omeprazole magnesium 20 mg 20 mg PO QAM 06/13/22 06/13/22 Unknown History tablet,delayed release (Prilosec OTC) tramadol 50 mg tablet 50 mg PO Q8H PRN Pain 06/13/22 06/13/22 Unknown History Exam Exam Date and Time: June 13, 2022 1203 Height,Weight and Vital Signs: Height 5 ft 4 in Weight 96.1 kg Last Vital Signs Pulse 98 06/13/22 11:31 Resp 20 06/13/22 11:31 BP 110/64 06/13/22 11:31 Pulse Ox 95 06/13/22 11:31 O2 Del Method 06/13/22 11:31 Airway Mallampati Class: I TM Dist: >3cm Neck ROM: Limited (S/p cervical fusion 2015) Loose/Missing/Broken Teeth: Yes (Chipped Left upper molar) Heart: RRR Lungs: CTAB Assessment and Plan Assessment Anesthesia Assessment: Anesthesia Plan Discussed and PAT Visit Final Anesthetic Review Family History of Problems with Anesthesia: No History of Problems with Anesthesia: No
[2022-06-13 15:10] LABS: MRSA Nasal PCR NEGATIVE (Negative); SA Nasal PCR NEGATIVE (Negative)
[2022-06-23 13:32] LABS: Anion Gap 11 (12-20); Blood Urea Nitrogen 8 mg/dL (9-16); Calcium 9.7 mg/dL (8.4-10.2); Carbon Dioxide 28 mmol/L (22-29); Chloride 103 mmol/L (96-108); Estimated Glomerular Filt Rate > 60; Glucose Random 86 mg/dL (60-115); Potassium 4.3 mmol/L (3.3-5.1); Sodium 138 mmol/L (135-145)
--- NOTE | 2022-06-27 08:52 | HO.ANESPROP2 ---
Documented by User: Mary Hung NP 06/27/22 08:55 HPI - Anesthesia Eval Consult details Narrative: 62yo F for Right Knee Replacement Total PCP cleared Recent loss of PMFSH Active Problems Active Problems: All Active Problems (Updated 06/22/22 @ 11:52 by Amaya Harris MD) Pre-op evaluation (Acute) Rotator cuff tendonitis (Acute) Impingement syndrome, shoulder, left (Acute) Psoriasis (Acute) Abdominal pain (Acute) Difficulty sleeping (Acute) Chronic GERD (Acute) Psoriatic arthritis (Acute) Flushing (Acute) Severe major depression (Acute) Skin growth (Acute) Grieving (Acute) Impingement syndrome of right shoulder (Acute) Obesity due to excess calories (Acute) Hand paresthesia (Acute) Leg pain, bilateral (Acute) Anxiety, generalized (Acute) S/P insertion of spinal cord stimulator (Acute) Medicare annual wellness visit, subsequent (Acute) Acute pain of right knee (Acute) Psoriatic arthropathy (Acute) Internal derangement of right knee (Acute) Pain management (Acute) Osteoarthritis of right knee (Acute) Right shoulder pain (Acute) Bursitis of right shoulder (Acute) Lipid disorder (Acute) DJD (degenerative joint disease) (Acute) Pre-diabetes (Acute) Constipation by delayed colonic transit (Acute) Asthma, moderate (Acute) Sciatica, right side (Acute) Sleeping difficulty (Acute) Periodic limb movement disorder (Acute) Depression, major, in remission (Acute) Chronic GERD (Acute) Postlaminectomy syndrome of cervical region (Acute) Postlaminectomy syndrome of lumbar region (Acute) Chronic pain syndrome (Acute) JOHN positive (Acute) Chest pain (Acute) Past Medical History Medical History JOHN positive Asthma, moderate Back pain Bursitis of right shoulder Chest pain Chronic GERD Chronic pain syndrome Constipation by delayed colonic transit Degenerative disc disease Depression, major, in remission DJD (degenerative joint disease) Fibromyalgia History of COVID-19 Lipid disorder Periodic limb movement disorder Postlaminectomy syndrome of cervical region Postlaminectomy syndrome of lumbar region Pre-diabetes Right shoulder pain S/P placement of nerve stimulator Sciatica, right side Sleeping difficulty Spinal stenosis Family History Family History Father No problems noted. Mother No problems noted. Other Mental health disorder Family history of problems with anesthesia: No Surgical History Surgical History H/O colonoscopy H/O shoulder surgery H/O spinal fusion H/O: hysterectomy History of esophagogastroduodenoscopy (EGD) History of gastric bypass History of lumbar fusion History of sleeve gastrectomy Hx of cholecystectomy History of Problems with Anesthesia: No Social History Social History Housing: House Are you a primary caregiver assisted living to a significant other at home: No Do you presently have visiting nurse or other home services: No Alcohol intake: current Alcohol intake frequency: holidays/special occasions only Patient Tobacco Use Status: Former Tobacco user Quit Date: age 49 Tobacco use type: Cigarette Years Smoked: 30 e-Cigarette/Vaping Use: Never Used Use of substances other than those prescribed or required for medical reasons: Yes Substance Use Type Other:: vapes THC for sleep on occasion Have you been hit, kicked, punched, or otherwise hurt by someone within the past year? If so, by whom?: No Are you DNR?: No Advance Directives: No Advance Directives Information Provided: Yes (as above noted-to bring copy DOS) Advance Directives on File: No Recently lost weight without trying: No Eating poorly because of decreased appetite: No Nutrition Risks: No Nutritional Risk Patient : No Poor oral hygiene: No (chipped teeth) Current occupational status: disabled Current occupation: right handed Cognitive needs: No Hearing needs: No Vision needs: Yes Meds Allergies Allergy/AdvReac Type Severity Reaction Status Date / Time adhesive tape [ADHESIVE TAPE] Allergy Severe SKIN TEARS Verified 06/23/22 13:20 pramipexole Allergy Severe Diarrhea Verified 06/23/22 13:20 adalimumab [From Humira] Allergy Intermediate Itching Verified 06/23/22 13:20 carisoprodol [From SOMA] Allergy Intermediate SWELLING, Verified 06/23/22 13:20 RASH cephalexin Allergy Intermediate Itching Verified 06/23/22 13:20 gabapentin Allergy Intermediate leg Verified 06/23/22 13:20 swelling sulfamethoxazole Allergy Intermediate SWELLING,RA Verified 06/23/22 13:20 [From BACTRIM] SH trimethoprim [From BACTRIM] Allergy Intermediate SWELLING,RA Verified 06/23/22 13:20 Home Medications Medication Instructions Recorded Confirmed Last Taken Type albuterol sulfate 90 mcg/actuation 2 puff inhalation Q6H PRN 10/13/20 06/22/22 Unknown History aerosol inhaler Shortness Of Breath duloxetine 60 mg capsule,delayed 60 mg PO QAM 06/13/22 06/22/22 Unknown History release omeprazole magnesium 20 mg 20 mg PO QAM 06/13/22 06/22/22 Unknown History tablet,delayed release (Prilosec OTC) tramadol 50 mg tablet 50 mg PO Q8H PRN Pain 06/13/22 06/22/22 Unknown History Exam Exam Date and Time: June 27, 2022 0852 Height,Weight and Vital Signs: Height 5 ft 4 in Weight 96.1 kg Last Vital Signs Pulse 98 06/13/22 11:31 Resp 20 06/13/22 11:31 BP 110/64 06/13/22 11:31 Pulse Ox 95 06/13/22 11:31 O2 Del Method 06/13/22 11:31 Pertinent Lab Results Pertinent Lab Results: Laboratory Tests 06/13/22 06/23/22 06/23/22 12:15 12:45 12:47 Sodium 138 Potassium 4.3 Chloride 103 Carbon Dioxide 28 Anion Gap 11 L BUN 8 L Creatinine 0.65 Estim Creat Clear Calc TNP Estimated GFR > 60 Random Glucose 86 Calcium 9.7 D Nasal Screen MRSA (PCR) NEGATIVE Nasal S. aureus Screen NEGATIVE Nasal MRSA/S.aureus Interp SEE NOTE Blood Type A Positive Antibody Screen NEGATIVE Laboratory Tests 06/02/22 14:55 WBC 8.3 Hgb 12.6 Hct 40.4 Plt Count 270 Narrative Narrative: EKG 05/2022 Vent. Rate : 068 BPM ? ? Atrial Rate : 068 BPM ?? P-R Int : 138 ms? QRS Dur : 082 ms ? ? QT Int : 384 ms ? ? ? P-R-T Axes : -10 -02 020 degrees ?? QTc Int : 408 ms ? Normal sinus rhythm Normal ECG When compared with ECG of 08-SEP-2020 14:50, No significant change was found Assessment and Plan Assessment Anesthesia Assessment: Chart Reviewed Final Anesthetic Review Family History of Problems with Anesthesia: No History of Problems with Anesthesia: No Documented by User: Aristeo Chapman MD 06/28/22 15:23 PMFSH Past Medical History Medical History JOHN positive Asthma, moderate Back pain Bursitis of right shoulder Chest pain Chronic GERD Chronic pain syndrome Constipation by delayed colonic transit Degenerative disc disease Depression, major, in remission DJD (degenerative joint disease) Fibromyalgia History of COVID-19 Lipid disorder Periodic limb movement disorder Postlaminectomy syndrome of cervical region Postlaminectomy syndrome of lumbar region Pre-diabetes Right shoulder pain S/P placement of nerve stimulator Sciatica, right side Sleeping difficulty Spinal stenosis Family History Family History Father No problems noted. Mother No problems noted. Other Mental health disorder Surgical History Surgical History H/O colonoscopy H/O shoulder surgery H/O spinal fusion H/O: hysterectomy History of esophagogastroduodenoscopy (EGD) History of gastric bypass History of lumbar fusion History of sleeve gastrectomy Hx of cholecystectomy Social History Social History Housing: House Are you a primary caregiver assisted living to a significant other at home: No Do you presently have visiting nurse or other home services: No Alcohol intake: current Alcohol intake frequency: holidays/special occasions only Patient Tobacco Use Status: Former Tobacco user Quit Date: age 49 Tobacco use type: Cigarette Years Smoked: 30 e-Cigarette/Vaping Use: Never Used Use of substances other than those prescribed or required for medical reasons: Yes Substance Use Type Other:: vapes THC for sleep on occasion Have you been hit, kicked, punched, or otherwise hurt by someone within the past year? If so, by whom?: No Are you DNR?: No Advance Directives: No Advance Directives Information Provided: Yes (as above noted-to bring copy DOS) Advance Directives on File: No Recently lost weight without trying: No Eating poorly because of decreased appetite: No Nutrition Risks: No Nutritional Risk Patient : No Poor oral hygiene: No (chipped teeth) Current occupational status: disabled Current occupation: right handed Cognitive needs: No Hearing needs: No Vision needs: Yes Meds Allergies Allergy/AdvReac Type Severity Reaction Status Date / Time adhesive tape [ADHESIVE TAPE] Allergy Severe SKIN TEARS Verified 06/23/22 13:20 pramipexole Allergy Severe Diarrhea Verified 06/23/22 13:20 adalimumab [From Humira] Allergy Intermediate Itching Verified 06/23/22 13:20 carisoprodol [From SOMA] Allergy Intermediate SWELLING, Verified 06/23/22 13:20 RASH cephalexin Allergy Intermediate Itching Verified 06/23/22 13:20 gabapentin Allergy Intermediate leg Verified 06/23/22 13:20 swelling sulfamethoxazole Allergy Intermediate SWELLING,RA Verified 06/23/22 13:20 [From BACTRIM] SH trimethoprim [From BACTRIM] Allergy Intermediate SWELLING,RA Verified 06/23/22 13:20 SH Home Medications Medication Instructions Recorded Confirmed Last Taken Type albuterol sulfate 90 mcg/actuation 2 puff inhalation Q6H PRN 10/13/20 06/22/22 Unknown History aerosol inhaler Shortness Of Breath duloxetine 60 mg capsule,delayed 60 mg PO QAM 06/13/22 06/22/22 Unknown History release omeprazole magnesium 20 mg 20 mg PO QAM 06/13/22 06/22/22 Unknown History tablet,delayed release (Prilosec OTC) tramadol 50 mg tablet 50 mg PO Q8H PRN Pain 06/13/22 06/22/22 Unknown History Exam Airway Mallampati Class: II TM Dist: >3cm Neck ROM: Full Loose/Missing/Broken Teeth: Yes Assessment and Plan Final Anesthetic Review NPO: Yes ASA Class: III Final Preanesthetic Review: No Changes in Pt Med Stat, Meds/Allgs Chart Reviewed, Consent Obtained/Reviewed and Anes Risks/Benef Reviewed Patient Risk: Intermediate Procedure Risk: Intermediate Anesthetic Plan Anesthetic Plan: GA, Spinal and Regional Block Disposition: Standard PACU
[2022-06-28] VITALS (18 sets, daily range): BP systolic 99–151; BP diastolic 50–67; PULSE 67–103; RESP 16–24; TEMP 35.9–37; O2SAT 92–100
--- NOTE | ~2022-06-28 | US_ITS ---
EXAMINATION: US VENOUS ULTRASOUND WITH DOPPLER LOWER EXTREMITY, RIGHT CLINICAL INFORMATION: Right calf pain COMPARISON: None TECHNIQUE: Ultrasound of the deep veins is performed from the hip to the calf with compression sonography and color and pulse Doppler assessment. Spectral analysis with color-flow imaging is performed. FINDINGS: There is normal venous compression and respiratory variation and augmented flow. The visualized common femoral vein, superficial femoral vein, profunda femoral vein, popliteal vein, and the trifurcation region shows no evidence of deep venous thrombosis. There is no significant popliteal fossa cyst. The contralateral left common femoral vein appears normal. If the patient's symptoms persist, followup ultrasound in 5 days 7 days might be of value to exclude proximal propagation from a non-visualized calf vein. US/US venous duplex LE RT IMPRESSION: No DVT demonstrated in the right lower extremity.
--- NOTE | ~2022-06-28 | XR_ITS ---
EXAMINATION: XR KNEE, RIGHT CLINICAL INFORMATION: Right TKA COMPARISON: None TECHNIQUE: Two views of the right knee. FINDINGS: Status post right total knee replacement. Orthopedic components in position. Gas in the joint space from recent surgery. Surgical skin clips seen at the anterior knee. XR/XR knee RT 2V IMPRESSION: Status post right total knee replacement.
[2022-06-28 09:53] LABS: COVID-19 Test Negative (Negative); IDNOW Serial# BCCEAD1C
[2022-06-28] MEDS: Lactated Ringers 1,000 ML 100 ML IVCONT ×2 (10:10→17:56)
[2022-06-28] MEDS: vancomycin HCL 1,500 MG in 0.9 % Sodium Chloride 500 ML 333.33 MG IV ×2 (10:38→22:54)
--- NOTE | 2022-06-28 11:53 | PC.NURSE ---
left hand redness to vein area. localized reaction with vancomycin runnning. no other changes. marked with skin marker. no pain
--- NOTE | 2022-06-28 12:36 | PC.NURSE ---
no sob or resp distress. redness noted to face only. no itching or allergic reaction noted.
--- NOTE | 2022-06-28 12:38 | PC.NURSE ---
md diaz aware of redness to face.
--- NOTE | 2022-06-28 15:31 | P.BOP_ITS ---
Brief Operative Note Date of Service: 06/28/22 Pre-op diagnosis: Right knee OA Post-op diagnosis: same Procedure: Right TKA Implants: Eleazar Triathlon Press fit posterior stabilized 09/23/10 Surgeon: López Wills MD Anesthesia: GETA Was an Electric Furnace Operator used for this Procedure?: Yes Electric Furnace Operator: Mulugeta Carrington Estimated blood loss (mL): 250 IV fluids (mL): 1,000 Pathology: other Condition: stable Disposition: PACU
--- NOTE | 2022-06-28 15:35 | W.PM.OPN ---
Operative Note Operative Note Date of Service: 06/28/22 Narrative: Date of Service: 06/28/22 Pre-op diagnosis: Right knee OA Post-op diagnosis: same Procedure: Right TKA Implants: Ranger Triathlon Press fit posterior stabilized 09/23/10 Surgeon: Lóepz Wills MD Anesthesia: GETA Was an Nursing Education Consultant used for this Procedure?: Yes Nursing Education Consultant: Mulugeta Carrington Estimated blood loss (mL): 250 IV fluids (mL): 1,000 Pathology: other Condition: stable Disposition: PACU Procedure in detail: The patient was brought to the operating room and prepped and draped in standard sterile fashion. A time-out was called to identify proper site proper procedure proper surgeon and IV antibiotics were administered. 1 g of IV tranexamic acid was administered. I began by making a midline incision to the retinaculum and performed a medial parapatellar arthrotomy. The patella was translated laterally and the knee was flexed up.The medial compartment was eburnated and in varus. I performed a medial peel and resected the infrapatellar fat pad. Montrose's line was then used to drill my intramedullary femoral guide and my distal femur cut of 12 mm was made ( 10 deg flexion contracture) in 5 degrees of valgus while protecting the soft tissues. I then measured a # 3 femur and placed my cutting guide and made my anterior posterior and chamfer cuts protecting the soft tissues at all times. I then made my box but removing the PCL. Once I was satisfied with my cuts I turned my attention to the tibia. I removed the meniscus medially and laterally and , using an external cutting guide, in line with the tibial crest and the third ray, I made my distal tibial cut in 0 deg slope of while protecting the posterior soft tissues at all times. An extension block was used to confirm appropriate amount of bony resection. I then sized a #3 tibia and once I was satisfied that there was complete tibial coverage I placed my trial and with the trial femur in place took the knee through range of motion. I was satisfied with the extension and flexion as well as the stability at 0, 30 and 90 degrees. I then turned my attention to the patella where I removed 1 cm from the undersurface of the patella and then trialed a 29a patellar button. Again the knee was taken through range of motion I was satisfied with the tracking. I then returned to the femur and drilled my femoral lug holes and prepared the tibia. A femoral bone plug was placed and the knee was irrigated copiously. I then press fit the patella, tibia and femur in standard fashion. I trialed different inserts until I selected a #11 insert. The final insert was placed and a 3 minutes iodine soak with local TXA was performed. The knee was then closed with a running Quill suture, a 3 0 Vicryl and vadim on the skin. Patient was then placed in sterile dressing and brought to recovery room in stable condition there were no known complications.
[2022-06-28] MEDS: HYDROmorphone HCl 0.5 MG/0.5 ML SYRINGE 0.25 MG IVPUSH ×5 (15:46→20:51)
[2022-06-28] MEDS: Acetaminophen 1,000 MG/100 ML PIGGYBACK 400 MG IV (15:50)
--- NOTE | 2022-06-28 15:53 | PHA.MEDREC ---
Pharmacy Consult ? Medication Reconciliation Pharmacy has completed the medication reconciliation. Reviewed med rec done by nursing
[2022-06-28] MEDS: Albuterol Sulfate (0.083%) 2.5 MG/3 ML VIAL.NEB INHALE (16:00)
[2022-06-28] MEDS: oxyCODONE HCl Immed Release 5 MG TABLET PO (16:42)
[2022-06-28] MEDS: 0.9 % Sodium Chloride Flush 3 ML SYRINGE IVFLUSH (17:49)
[2022-06-28] MEDS: oxyCODONE HCl ER 10 MG TAB.ER.12H PO (20:50)
[2022-06-28] MEDS: Celecoxib 200 MG CAPSULE PO (20:51)
[2022-06-28] MEDS: Docusate Sodium 100 MG CAPSULE PO (20:51)
[2022-06-28] MEDS: diphenhydrAMINE HCL 25 MG CAPSULE 50 MG PO (22:07)
[2022-06-28] MEDS: oxyCODONE HCl Immed Release 5 MG TABLET 10 MG PO (23:00)
[2022-06-29] MEDS: HYDROmorphone HCl 0.5 MG/0.5 ML SYRINGE 0.25 MG IVPUSH ×3 (01:34→23:55)
[2022-06-29 03:04] VITALS: BP 95/55; PULSE 96; RESP 16; TEMP 36.5; O2SAT 95
[2022-06-29] MEDS: oxyCODONE HCl Immed Release 5 MG TABLET 10 MG PO ×5 (04:21→21:28)
[2022-06-29] MEDS: Lactated Ringers 1,000 ML 100 ML IVCONT ×2 (04:25→13:02)
[2022-06-29 05:55] LABS: Basophils Percent Auto 0.2 % (0-2); Hematocrit 31.4 % (37.0-47.0); Hemoglobin 9.8 g/dl (12.0-16.0); Imm Gran Abs Auto 0.06 X10*3/uL (0.00-0.03); Imm Gran Pct Auto 0.4 % (0.0-0.4); Lymphocytes Absolute Auto 1.3 X10*3/uL (1.2-4.9); Lymphocytes Percent Auto 8.9 % (20-40); MANUAL DIFF FLAG SCAN; Mean Corpuscular HGB Conc 31.2 g/dl (31.0-35.0); Mean Corpuscular Hemoglobin 28.6 pg (27.0-33.0); Mean Corpuscular Volume 91.5 fL (80.0-98.0); Mean Platelet Volume 11.4 fL (9.4-12.3); Monocytes Absolute Auto 1.5 X10*3/uL (0.1-1.2); Monocytes Percent Auto 10.6 % (2-11); Neutrophils Absolute Auto 11.5 x10*3/uL (2.0-8.3); Neutrophils Percent Auto 79.9 % (45-73); Platelet Count 236 X10*3/uL (160-400); Red Blood Count 3.43 X10*6/uL (4.20-5.50); Red Cell Distribution Width 13.8 % (11.0-16.0); SCAN SMEAR FLAG 1; White Blood Count 14.4 X10*3/uL (4.8-10.8)
[2022-06-29 06:12] LABS: SLIDE REVIEW VERIFIED
[2022-06-29 06:13] LABS: Anion Gap 10 (12-20); Blood Urea Nitrogen 8 mg/dL (9-16); Calcium 8.4 mg/dL (8.4-10.2); Carbon Dioxide 29 mmol/L (22-29); Chloride 109 mmol/L (96-108); Creatinine Clr Calc Pharmacy 104.5; Estimated Glomerular Filt Rate > 60; Glucose Fasting 113 mg/dL (60-99); Potassium 4.5 mmol/L (3.3-5.1); Sodium 143 mmol/L (135-145)
[2022-06-29 07:28] VITALS: BP 115/56; PULSE 79; RESP 17; TEMP 36.5; O2SAT 98
--- NOTE | 2022-06-29 07:55 | PM.PNORT ---
Subjective Subjective Date of Service: 06/29/22 Interval history: POD1 s/p RTKA patient is resting in bed comfortably. No overnight events. Pain is managed. No additional complaints. Physical Exam Vital Signs: Vital Signs: Last Vital Signs Temp 97.7 F 06/29/22 07:28 Pulse 79 06/29/22 07:28 Resp 17 06/29/22 07:28 BP 115/56 L 06/29/22 07:28 Pulse Ox 98 06/29/22 07:28 O2 Del Method 06/29/22 07:28 O2 Flow Rate 1.0 06/29/22 07:28 BMI result Body Mass Index 36.3 Const: General: cooperative, healthy appearing and no acute distress Resp: Effort & Inspection: normal respiratory effort and able to speak in complete sentences Cardio: Rate: regular rate Peripheral pulses: Peripheral pulses 2+ throughout GI: Palpation (GI): Soft to palpation Skin: Lesions: no lesions Rashes: no rashes Extrem: Other: Right knee Aquacel is c/d/i. NVI. Procedures Date of Service Date of Service: 06/29/22 Progress Note: A&P Assessment and plan (1) Status post total knee replacement, left: Status: Acute Assessment and Plan: Continue pain mgmnt Begin ASA for dvt ppx begin PT for RTKA Dispo planning-Pending PT eval, pain mgmnt Time Spent With Patient Time: Total time spent is greater than 50% in coordination of care (as documented) at patient's floor/unit and/or counseling patient: Quality Stroke Does the patient have a stroke diagnosis?: No VTE Prior VTE?: No VTE Risk Level:: Medical - moderate - high VTE Device Contraindication: N/A - Device Ordered VTE Drug Contraindication: N/A - Med Ordered
[2022-06-29 08:16] VITALS: BP 115/56; PULSE 79; O2SAT 98
[2022-06-29] MEDS: oxyCODONE HCl ER 10 MG TAB.ER.12H PO ×2 (08:32→21:26)
[2022-06-29] MEDS: Celecoxib 200 MG CAPSULE PO ×2 (08:34→21:29)
[2022-06-29] MEDS: Docusate Sodium 100 MG CAPSULE PO ×2 (08:34→21:26)
--- NOTE | 2022-06-29 09:05 | HO.POSTANES ---
Post Anesthesia Evaluation Post Anesthesia Evaluation Vital Signs: Vital Signs Temp Pulse Resp BP Pulse Ox O2 Del Method O2 Flow Rate 06/29/22 07:28 97.7 F 79 17 115/56 L 98 Nasal Cannula 1.0 06/29/22 03:04 97.7 F 96 16 95/55 L 95 Nasal Cannula 1 06/28/22 23:54 97.5 F 81 16 113/57 L 95 Room Air Anesthesia: General Mental Status: Awake Pain Control: Satisfactory (Patient in some pain , being managed by primary team ) Nausea/Vomiting: None Hydration: Adequate Anesthesia-Related Issues: No Anes. Related Issues
--- NOTE | 2022-06-29 09:31 | PC.NURSE ---
Patient complaining of a edward horse pain in her right calf after working with Physical Therapy. Sequential Stockings on, removed to check calf, no swelling, or hardness, able to move toes, and foot, both feet are equally cool to touch. TigerTexed Cira Robles to let her know. Response was Okay. Patient also voided in the bathroom, states her abdomen feels better.
[2022-06-29] MEDS: Aspirin 325 MG TABLET PO ×2 (12:40→21:25)
[2022-06-29 13:56] VITALS: PULSE 79; O2SAT 98
[2022-06-29 15:09] VITALS: BP 110/58; PULSE 93; RESP 20; TEMP 36.9; O2SAT 97
--- NOTE | 2022-06-29 15:41 | PC.NURSE ---
Bladder scanned for 826 straight cathed for 715cc. Pt voided on own Bladder scanned for 254.
[2022-06-29] MEDS: Acetaminophen 325 MG TABLET 650 MG PO (17:30)
[2022-06-29] MEDS: 0.9 % Sodium Chloride Flush 3 ML SYRINGE IVFLUSH ×2 (17:40→23:58)
[2022-06-29 18:02] VITALS: BP 132/61; PULSE 90; RESP 20; TEMP 36.6; O2SAT 96
--- NOTE | 2022-06-29 18:11 | PC.NURSE ---
patient son visiting,disappointed he did not get a call from a doctor about his mother surgery,JEZ Carrington notified via [employer],phone number provided,Ava will give a message to Dr. Wills to call tomorrow,son at the bedside made aware
[2022-06-30] VITALS (7 sets, daily range): BP systolic 110–127; BP diastolic 28–57; PULSE 90–130; RESP 16–18; TEMP 36.2–37.2; O2SAT 94–99
[2022-06-30] MEDS: HYDROmorphone HCl 0.5 MG/0.5 ML SYRINGE 0.25 MG IVPUSH ×4 (04:04→20:16)
[2022-06-30 06:16] LABS: Basophils Absolute Auto 0.1 X10*3/uL (0.0-0.2); Basophils Percent Auto 0.8 % (0-2); Eosinophils Absolute Auto 0.1 X10*3/uL (0.0-0.4); Eosinophils Percent Auto 1.3 % (0-4); Hematocrit 30.9 % (37.0-47.0); Hemoglobin 9.5 g/dl (12.0-16.0); Imm Gran Abs Auto 0.04 X10*3/uL (0.00-0.03); Imm Gran Pct Auto 0.4 % (0.0-0.4); Lymphocytes Absolute Auto 1.7 X10*3/uL (1.2-4.9); Lymphocytes Percent Auto 16.6 % (20-40); MANUAL DIFF FLAG SCAN; Mean Corpuscular HGB Conc 30.7 g/dl (31.0-35.0); Mean Corpuscular Hemoglobin 28.2 pg (27.0-33.0); Mean Corpuscular Volume 91.7 fL (80.0-98.0); Monocytes Absolute Auto 1.7 X10*3/uL (0.1-1.2); Monocytes Percent Auto 15.9 % (2-11); Neutrophils Absolute Auto 6.7 x10*3/uL (2.0-8.3); Platelet Count 218 X10*3/uL (160-400); Red Blood Count 3.37 X10*6/uL (4.20-5.50); Red Cell Distribution Width 13.8 % (11.0-16.0); SCAN SMEAR FLAG 1; White Blood Count 10.4 X10*3/uL (4.8-10.8)
[2022-06-30 06:30] LABS: Anion Gap 11 (12-20); Blood Urea Nitrogen 6 mg/dL (9-16); Calcium 8.6 mg/dL (8.4-10.2); Carbon Dioxide 31 mmol/L (22-29); Chloride 105 mmol/L (96-108); Creatinine Clr Calc Pharmacy 104.5; Estimated Glomerular Filt Rate > 60; Glucose Fasting 128 mg/dL (60-99); Potassium 4.2 mmol/L (3.3-5.1); Sodium 143 mmol/L (135-145)
[2022-06-30 06:50] LABS: SLIDE REVIEW VERIFIED
[2022-06-30] MEDS: oxyCODONE HCl ER 10 MG TAB.ER.12H PO ×2 (07:38→20:16)
[2022-06-30] MEDS: Docusate Sodium 100 MG CAPSULE PO (07:39)
[2022-06-30] MEDS: Aspirin 325 MG TABLET PO ×2 (07:39→20:16)
[2022-06-30] MEDS: 0.9 % Sodium Chloride Flush 3 ML SYRINGE IVFLUSH ×3 (07:40→20:16)
[2022-06-30] MEDS: oxyCODONE HCl Immed Release 5 MG TABLET 10 MG PO ×3 (07:40→22:03)
[2022-06-30] MEDS: Celecoxib 200 MG CAPSULE PO ×2 (07:40→20:16)
--- NOTE | 2022-06-30 09:46 | PM.PNORT ---
Subjective Subjective Date of Service: 06/30/22 Interval history: POD2 s/p RTKA. Patient is resting in bed. Patient reports that she continues to have calf pain and cramping. She reports the pain is constant. Knee pain is managed. Reports dizziness with ambulation and nausea. Physical Exam Vital Signs: Vital Signs: Last Vital Signs Temp 97.5 F 06/30/22 08:00 Pulse 98 06/30/22 08:00 Resp 18 06/30/22 08:00 BP 110/55 L 06/30/22 08:00 Pulse Ox 99 06/30/22 08:00 O2 Del Method 06/30/22 08:00 O2 Flow Rate 1.0 06/29/22 07:28 BMI result Body Mass Index 36.3 Const: General: cooperative, healthy appearing and no acute distress Resp: Effort & Inspection: normal respiratory effort and able to speak in complete sentences Cardio: Rate: regular rate Peripheral pulses: Peripheral pulses 2+ throughout GI: Palpation (GI): Soft to palpation Skin: Lesions: no lesions Rashes: no rashes Extrem: Other: Right knee incision site c/d/i. Stacia intact. No erythema or drainage. Calf is supple but tender to palpation. Pedal pulse palpable. Procedures Date of Service Date of Service: 06/30/22 Progress Note: A&P Assessment and plan (1) Status post total knee replacement, right: Status: Acute Assessment and Plan: Continue pain mgmnt Continue ASA for dvt ppx Stat ultrasound ordered to r/o DVT Dizziness - Fluid bolus ordered Constipation - Miralax ordered Nausea- phenergan ordered PO Continue PT for RTKA Dispo planning- PT, pain mgmnt, bp monitorig after fluid bolus, management of nausea, u/s RLE to r/o DVT Time Spent With Patient Time: Total time spent is greater than 50% in coordination of care (as documented) at patient's floor/unit and/or counseling patient: Quality Stroke Does the patient have a stroke diagnosis?: No VTE Prior VTE?: No VTE Risk Level:: Medical - moderate - high VTE Device Contraindication: N/A - Device Ordered VTE Drug Contraindication: N/A - Med Ordered
[2022-06-30] MEDS: 0.9 % Sodium Chloride 1,000 ML 999 ML IV (10:21)
[2022-06-30] MEDS: Acetaminophen 325 MG TABLET 650 MG PO ×2 (14:16→22:03)
[2022-06-30] MEDS: diphenhydrAMINE HCL 25 MG CAPSULE 50 MG PO (14:17)
[2022-07-01] MEDS: diphenhydrAMINE HCL 25 MG CAPSULE 50 MG PO ×2 (01:50→07:40)
[2022-07-01] MEDS: HYDROmorphone HCl 0.5 MG/0.5 ML SYRINGE 0.25 MG IVPUSH (01:51)
[2022-07-01 03:12] VITALS: BP 118/56; PULSE 90; RESP 16; TEMP 37.4; O2SAT 97
--- NOTE | 2022-07-01 03:50 | PC.NURSE ---
Pt c/o not having sleep since in the hospital, pt claimed she uses Seroquel 25 mg at bedtime, asd seen on pt's summary, Dr. Lucia Hatch was made aware, discussed pt's issue on the phone with same MD, decided to bring it to the team in the morning.
[2022-07-01] MEDS: Acetaminophen 325 MG TABLET 650 MG PO ×2 (05:11→13:49)
[2022-07-01] MEDS: oxyCODONE HCl Immed Release 5 MG TABLET 10 MG PO ×3 (05:11→13:50)
[2022-07-01 06:35] LABS: MANUAL DIFF FLAG NO
[2022-07-01 06:42] LABS: Basophils Absolute Auto 0.1 X10*3/uL (0.0-0.2); Eosinophils Absolute Auto 0.4 X10*3/uL (0.0-0.4); Eosinophils Percent Auto 3.9 % (0-4); Hematocrit 30.5 % (37.0-47.0); Hemoglobin 9.3 g/dl (12.0-16.0); Imm Gran Abs Auto 0.04 X10*3/uL (0.00-0.03); Imm Gran Pct Auto 0.4 % (0.0-0.4); Lymphocytes Absolute Auto 2.7 X10*3/uL (1.2-4.9); Lymphocytes Percent Auto 25.5 % (20-40); Mean Corpuscular HGB Conc 30.5 g/dl (31.0-35.0); Mean Corpuscular Hemoglobin 28.4 pg (27.0-33.0); Mean Corpuscular Volume 93.3 fL (80.0-98.0); Mean Platelet Volume 11.9 fL (9.4-12.3); Monocytes Absolute Auto 1.3 X10*3/uL (0.1-1.2); Neutrophils Absolute Auto 6.1 x10*3/uL (2.0-8.3); Neutrophils Percent Auto 57.2 % (45-73); Platelet Count 217 X10*3/uL (160-400); Red Blood Count 3.27 X10*6/uL (4.20-5.50); Red Cell Distribution Width 13.6 % (11.0-16.0); White Blood Count 10.7 X10*3/uL (4.8-10.8)
[2022-07-01 07:26] LABS: Anion Gap 13 (12-20); Blood Urea Nitrogen 5 mg/dL (9-16); Calcium 8.5 mg/dL (8.4-10.2); Carbon Dioxide 29 mmol/L (22-29); Chloride 105 mmol/L (96-108); Creatinine Clr Calc Pharmacy 106.2; Estimated Glomerular Filt Rate > 60; Glucose Fasting 108 mg/dL (60-99); Sodium 143 mmol/L (135-145)
[2022-07-01] MEDS: oxyCODONE HCl ER 10 MG TAB.ER.12H PO (07:41)
[2022-07-01] MEDS: Celecoxib 200 MG CAPSULE PO (07:41)
[2022-07-01] MEDS: 0.9 % Sodium Chloride Flush 3 ML SYRINGE IVFLUSH (07:42)
[2022-07-01] MEDS: Aspirin 325 MG TABLET PO (07:42)
--- NOTE | 2022-07-01 07:56 | PM.DS ---
DS: Providers Provider Date of Service: 07/01/22 Primary care physician: Amaya Harris MD DS: Diagnosis Discharge Diagnosis (1) Status post total knee replacement, right: Status: Acute DS: Summary Hospital Course Hospital Course: The patient underwent a successful left total knee arthroplasty, was transferred to PACU and then to the floor to recover. During their stay, their vitals were stable, afebrile at 99.3. Labs were unremarkable, H/H 9.3/30.5. POD 1 she was started on Aspirin for DVT ppx, they also received PT services twice a day. Prior to discharge, their dressing was change, incision clean dry and intact, new Aquacel dressing applied and the plan was to be discharged home with VNA. Time Spent with Patient Time attestation: Total time spent providing and/or coordinating discharge services: Discharge coordination time: Less than 30 minutes Quality: Safe Use of Opioids Does Pt have an Active Cancer Diagnosis on the Problem List?: No Quality: Stroke Does the patient have a stroke diagnosis?: No Physical Exam Vital Signs: Vital Signs: Last Vital Signs Temp 99.3 F 07/01/22 03:12 Pulse 90 07/01/22 03:12 Resp 16 07/01/22 03:12 BP 118/56 L 07/01/22 03:12 Pulse Ox 97 07/01/22 03:12 O2 Del Method 07/01/22 03:12 O2 Flow Rate 1.0 06/29/22 07:28 BMI result Body Mass Index 36.3 Const: General: cooperative, healthy appearing and no acute distress Resp: Effort & Inspection: normal respiratory effort and able to speak in complete sentences Cardio: Rate: regular rate Peripheral pulses: Peripheral pulses 2+ throughout GI: Palpation (GI): Soft to palpation Skin: General skin exam: no rashes or lesions noted Extrem: Other: incision clean dry and intact. Stacia intact. No erythema or joint effusion. Calf supple nontender. Neurovascularly intact. DS: Data Data Completed and Pending Completed studies during hospitalization [Text1]: Pending at discharge 06/28/22 14:40 Surgical [PTH] Routine Labs on day of discharge: Laboratory Results - last 24 hr 07/01/22 07/01/22 05:11 05:11 WBC 10.7 RBC 3.27 L Hgb 9.3 L Hct 30.5 L MCV 93.3 MCH 28.4 MCHC 30.5 L RDW 13.6 Plt Count 217 MPV 11.9 Immature Gran % (Auto) 0.4 Neut % (Auto) 57.2 Lymph % (Auto) 25.5 [place] % (Auto) 12.0 H Eos % (Auto) 3.9 Baso % (Auto) 1.0 Lymph # (Auto) 2.7 [place] # (Auto) 1.3 H Eos # (Auto) 0.4 Baso # (Auto) 0.1 Abs Immat Gran (auto) 0.04 H Absolute Neuts (auto) 6.1 Absolute Nucleated RBC 0.000 Nucleated RBC % (auto) 0.0 Sodium 143 Potassium 4.0 Chloride 105 Carbon Dioxide 29 Anion Gap 13 BUN 5 L Creatinine 0.61 Estim Creat Clear Calc 106.2 Estimated GFR > 60 Fasting Glucose 108 H Calcium 8.5 Discharge Plan Discharge Patient Disposition: Home, Self-Care Referrals: Mulugeta Carrington PA-C [Physician Printing Equipment Mechanic Apprentice] - 2 Weeks (07/14/22 11:30 [facility] Mulugeta Carrington PA-C) Discharge Medications: No Action cholecalciferol (vitamin D3) 50 mcg (2,000 unit) capsule 50 mcg PO DAILY 90 Days Qty: 90 0RF simvastatin 40 mg tablet 40 mg PO BEDTIME 90 Days Qty: 90 0RF quetiapine [Seroquel] 25 mg tablet 25 mg PO BEDTIME 90 Days Qty: 90 0RF (DME[facility] .MEDSUPPLY Qty: 1 0RF Rx Instructions: Folding Front wheeled walker tramadol 50 mg tablet 50 mg PO Q8H PRN (Reason: Pain) omeprazole magnesium [Prilosec OTC] 20 mg tablet,delayed release (DR/EC) 20 mg PO DAILY duloxetine 60 mg capsule,delayed release(DR/EC) 60 mg PO DAILY clonazepam 1 mg tablet 1 mg PO BEDTIME 90 Days Qty: 90 0RF Rx Instructions: administer 30 minutes before bedtime albuterol sulfate 90 mcg/actuation HFA aerosol inhaler 2 puff inhalation Q6H PRN (Reason: Shortness Of Breath) Discharge Orders: Discharge Order (Routine); Ordered 07/01/22 Ordered By: Mulugeta Carrington Diet: Regular diet Activity on Discharge: Use cane or walker Activity Restrictions/Additional Instructions: Physical Therapy for Total knee arthroplasty: WBAT, gait training, ROM 0-12, quad strength Limit stair climbing No showering, no tub bath-keep dressing clean, dry and intact No driving x6 weeks Continue Aspirin twice a day x 6 weeks Follow up with [facility] in 2 weeks: --you will also have your first out patient PT eval on the day of your post op appt-so please plan on being in the office that day for an extended period of time.
[2022-07-01 08:49] VITALS: BP 90/51; PULSE 102; RESP 18; TEMP 37.4; O2SAT 94
[2022-07-01 08:52] VITALS: BP 90/51; PULSE 102; O2SAT 94
--- NOTE | 2022-07-01 08:58 | MHC.CM.PN ---
PATIENT LIVES WITH SON/HCP [place]. NO PRIOR VNA SERVICES. HAS WALKER IN PREP FOR SURGICAL INTERVENTION. SHE IS ASKING FOR [facility] SERVICES. IMM 06/30 IN CHART SON TO TRANSPORT
--- NOTE | 2022-07-01 09:05 | MHC.CM.PN ---
PATIENT ASKS FOR [facility]; HOWEVER, THEY ARE NOT FOUND IN [facility]. CALL TO [facility] @ [phone], AND NUMBER DOES NOT GO TO AN EXISTING NUMBER. [facility] REFERRALS PLACED. CM TO UPDATE PATIENT WITH ACCEPTING AGENICES
[2022-07-01 16:00] VITALS: BP 110/67; PULSE 98; RESP 20; TEMP 37.2; O2SAT 96
== END 2022-07-01 17:09 | disposition home health service (06) ==
LOC: HO.SSS 08:54 → HO.EDOVER 15:59 → HO.S3 16:00
PROVIDERS: Physician Assistant; PCP Internal Medicine; Visit Provider Orthopaedic Surgery
PROC: (CPT 27447; principal; 2022-06-28 11:50)
DX: M17.11 Unilateral primary osteoarthritis, right knee (principal); M79.661 Pain in right lower leg; R42 Dizziness and giddiness; K59.00 Constipation, unspecified; R11.0 Nausea; J45.909 Unspecified asthma, uncomplicated; K21.9 Gastro-esophageal reflux disease without esophagitis; G89.4 Chronic pain syndrome; R73.03 Prediabetes; Z79.891 Long term (current) use of opiate analgesic; Z79.899 Other long term (current) drug therapy; Z20.822 Contact with and (suspected) exposure to COVID-19; Z98.84 Bariatric surgery status; Z90.49 Acquired absence of other specified parts of digestive tract; Z90.710 Acquired absence of both cervix and uterus; Z88.2 Allergy status to sulfonamides; Z88.8 Allergy status to other drugs, medicaments and biological substances
CPT/HCPCS: 27447; 36415; 73560; 80048; 85014; 85018; 85025; 86850; 86900; 86901; 87635; 87640; 87641; 88305; 88311; 93971; 97110; 97116; 97162; 97530; C1776; J0131; J1100; J1170; J2250; J2795; J3010; J3370

== ENCOUNTER → 2022-07-14 11:17 | Outpatient (BNVA) | payer MEDICARE, MEDICAID, SELFPAY | PROVIDERS: PCP Internal Medicine; Visit Provider Physician Assistant | DX: Z13.89 Encounter for screening for other disorder (principal) | CPT/HCPCS: 99212 ==

== ENCOUNTER → 2022-08-11 13:41 | Outpatient (BNVA) | payer MEDICARE, MEDICAID, SELFPAY | PROVIDERS: PCP Internal Medicine; Visit Provider Physician Assistant | DX: Z13.89 Encounter for screening for other disorder (principal) | CPT/HCPCS: 99212 ==

== ENCOUNTER 2022-08-19 13:33 | Outpatient (REF) | payer MEDICARE, MEDICAID, SELFPAY ==
[2022-08-19 16:30] LABS: MANUAL DIFF FLAG NO
[2022-08-19 16:35] LABS: Basophils Absolute Auto 0.1 X10*3/uL (0.0-0.2); Basophils Percent Auto 1.1 % (0-2); Eosinophils Absolute Auto 0.2 X10*3/uL (0.0-0.4); Eosinophils Percent Auto 2.3 % (0-4); Hematocrit 39.3 % (37.0-47.0); Hemoglobin 11.9 g/dl (12.0-16.0); Imm Gran Abs Auto 0.02 X10*3/uL (0.00-0.03); Imm Gran Pct Auto 0.2 % (0.0-0.4); Lymphocytes Absolute Auto 2.1 X10*3/uL (1.2-4.9); Lymphocytes Percent Auto 23.8 % (20-40); Mean Corpuscular HGB Conc 30.3 g/dl (31.0-35.0); Mean Corpuscular Volume 89.1 fL (80.0-98.0); Mean Platelet Volume 11.3 fL (9.4-12.3); Monocytes Absolute Auto 0.7 X10*3/uL (0.1-1.2); Neutrophils Absolute Auto 5.7 x10*3/uL (2.0-8.3); Neutrophils Percent Auto 64.6 % (45-73); Platelet Count 390 X10*3/uL (160-400); Red Blood Count 4.41 X10*6/uL (4.20-5.50); Red Cell Distribution Width 12.7 % (11.0-16.0); White Blood Count 8.8 X10*3/uL (4.8-10.8)
[2022-08-19 16:46] LABS: Estimated Average Glucose 108 mg/dL; Hemoglobin A1c % 5.4 %
[2022-08-19 16:54] LABS: Alanine Aminotransferase < 6 U/L (0-31); Albumin Level 4.1 g/dL (3.5-5.0); Alkaline Phosphatase 73 U/L (39-117); Anion Gap 13 (12-20); Aspartate Amino Transferase 10 U/L (5-31); Bilirubin Total 0.3 mg/dL (0.0-1.0); Blood Urea Nitrogen 9 mg/dL (9-16); Calcium 9.3 mg/dL (8.4-10.2); Carbon Dioxide 27 mmol/L (22-29); Chloride 107 mmol/L (96-108); Estimated Glomerular Filt Rate > 60; Glucose Random 145 mg/dL (60-115); Iron 38 mcg/dL (30-160); Percent Iron Saturation 14 % (15-50); Potassium 4.1 mmol/L (3.3-5.1); Sodium 143 mmol/L (135-145); Total Iron Binding Capacity 266 mcg/dL (228-428); Total Protein 6.6 g/dL (6.5-8.0); Unsaturated Iron Binding 228 ug/dL
[2022-08-19 17:09] LABS: TSH reflex Free T4 0.58 uIU/mL (0.32-4.0)
[2022-08-19 17:15] LABS: Vitamin B12 317 pg/mL (200-900)
== END 2022-08-19 13:34 | disposition home or self-care (01) ==
LOC: HO.HMGCLDS 13:33
PROVIDERS: Internal Medicine; Visit Provider Physician Assistant
DX: D64.9 Anemia, unspecified (principal); G47.9 Sleep disorder, unspecified; K21.9 Gastro-esophageal reflux disease without esophagitis; E66.01 Morbid (severe) obesity due to excess calories; F41.1 Generalized anxiety disorder; L40.50 Arthropathic psoriasis, unspecified; R73.03 Prediabetes; J45.40 Moderate persistent asthma, uncomplicated; G47.61 Periodic limb movement disorder; Z68.38 Body mass index [BMI] 38.0-38.9, adult
CPT/HCPCS: 36415; 80053; 82607; 83036; 83540; 84443; 85025

== ENCOUNTER 2022-08-25 08:01 | Outpatient (REF) | payer MEDICARE, MEDICAID, SELFPAY ==
--- NOTE | ~2022-08-25 | XR_ITS ---
EXAMINATION: XR HIP, RIGHT CLINICAL INFORMATION: Primary osteoarthritis right hip COMPARISON: X-ray the pelvis December 2020 x-ray the right hip May 2018. TECHNIQUE: Two views of the right hip. FINDINGS: Right hip joint: Joint space remains normal. No fracture or bone lesion. Small pulmonary focus of calcific or ossific density just posterior to the trochanteric region unchanged compared to prior examinations. Incidental note made of a electronic device with wire overlying the right pelvis is not seen previously. XR/XR hip RT min 2V IMPRESSION: 1. No evidence of osteoarthritis of the right hip. 2. Small focus of calcific or ossific density just posterior to the trochanteric region unchanged compared to prior examinations. This could reflect calcific tendinitis or tendinosis.
== END 2022-08-25 08:02 | disposition home or self-care (01) ==
LOC: HO.XRAY 08:01
PROVIDERS: PCP Internal Medicine; Visit Provider Anesthesiology
DX: M16.11 Unilateral primary osteoarthritis, right hip (principal); M96.1 Postlaminectomy syndrome, not elsewhere classified
CPT/HCPCS: 73502; 99212

== ENCOUNTER 2022-09-08 13:00 | Outpatient (RCR) | payer MEDICARE, MEDICAID, SELFPAY ==
--- NOTE | 2022-07-14 12:44 | MHC.PT.EP ---
[facility] [place] Office [place] Office [place] Office [address] Gabbie Nuno [address] [phone] F: [phone] F: [phone] F: [phone] F: [phone] Physical Therapy Plan of Care Date of Evaluation: Date of Surgery: 06/28/22 Diagnosis: S/P TOTAL RIGHT KNEE ARTHROPLASTY Assessment: 62 YO FEMALE REF TO PT S/P RIGHT TKA ON 06/28/22. SHE RESIDES ALONE (HER 2 WKS PRIOR TO HER RECENT SURGERY) IN A 1 LEVEL HOME AND IS CURRENTLY AMB W A ROLLATOR. OBJECTIVE FINDINGS: PO ROM DEFICITS RIGHT KNEE, TIGHT HIP FLEXORS/ CALF MM, (+) STRENGTH DEFICITS, AND RIGHT KNEE PAIN. FUNCTIONALLY, Pt IS CURRENTLY LIMITED WITH BED MOB, DECR STANDING EVELYN, ALTERED GAIT MECHANICS, STAIR MGMT, AND RESTRICTED WITH MORE PHYSICALLY DEMANDING ADLs. Pt WOULD BENEFIT FROM PT AT THIS TIME TO GUIDE HER IN HER POST-OP COURSE, DEV A PROGR HEP, ADDRESS PAIN MGMT, AND OBTAINING MAXIMAL LEVEL OF FUNCTIONAL INDEPENDENCE. Frequency and Duration: The patient will be seen 2 x WK x 10 WKS Short Term Goals: *Pt INDEP W ALEJANDRINA POSTERIOR APPROACH PRECAUTIONS AND SELF-MGMT OF POST-OP STATUS TO PROMOTE OPTIMAL HEALING *Pt WILL DEMON EFFICIENT GAIT MECHANICS W LEAST RESTRICTIVE ASST DEVICE ON LEVEL GROUND AND STAIRS *Pt'S RIGHT HIP PAIN WILL DECR TO 2-3/10 *Pt DEMON APPROP BED MOB/ POSITIONING/ SIT <-> STAND/ CAR TRANSFERS Custodial Goals: *Pt WILL IMPROVE LUMBOPELVIC/ Rt LE STRENGTH TO AT LEAST 5-/5 *Pt RESUME AT LEAST PLOF EVIDENT W IMPROVED LEFI SCORE (AT EVAL ) *Pt INDEP W PROGR HEP AND SELF-SX MGMT TECHN Treatment Plan: Modalities to reduce pain, spasms and effusion. Manual therapy to restore motion and function. Therapeutic exercise to improve strength and flexibility. Neuromuscular re-education for posture and balance. Therapeutic activities to return to functional activities of daily living. Electronically signed by: JOE PARK,PT Please sign and return to therapist. Thank you for your referral.
== END 2022-09-08 14:38 | disposition home or self-care (01) ==
LOC: HO.PTCHIC 13:00
PROVIDERS: Visit Provider Physician Assistant
DX: Z96.651 Presence of right artificial knee joint (principal)
CPT/HCPCS: 97110; 97116; 97140; 97162; 97530

== ENCOUNTER 2022-09-20 09:30 | Outpatient (REF) | payer MEDICARE, MEDICAID, SELFPAY ==
--- NOTE | ~2022-09-20 | XR_ITS ---
EXAMINATION: XR AP KNEE STANDING, BILATERAL XR KNEE, RIGHT CLINICAL INFORMATION: Right knee pain. COMPARISON: None TECHNIQUE: AP bilateral knee standing 1 view. Right knee 2 views. FINDINGS: AP Bilateral Knee: There is a total right knee arthroplasty with prosthetic components in satisfactory alignment. There is severe loss of medial compartment joint space with moderate periarticular spurring. No loose body seen. There is mild suprapatellar joint effusion. XR/XR knee RT 2V IMPRESSION: 1. Total right knee arthroplasty with prosthetic components in satisfactory alignment. There is mild suprapatellar joint effusion. 2. Severe degenerative changes medial compartment right knee with moderate periarticular spurring.
--- NOTE | ~2022-09-20 | XR_ITS ---
EXAMINATION: XR AP KNEE STANDING, BILATERAL XR KNEE, RIGHT CLINICAL INFORMATION: Right knee pain. COMPARISON: None TECHNIQUE: AP bilateral knee standing 1 view. Right knee 2 views. FINDINGS: AP Bilateral Knee: There is a total right knee arthroplasty with prosthetic components in satisfactory alignment. There is severe loss of medial compartment joint space with moderate periarticular spurring. No loose body seen. There is mild suprapatellar joint effusion. XR/XR knee standing BI IMPRESSION: 1. Total right knee arthroplasty with prosthetic components in satisfactory alignment. There is mild suprapatellar joint effusion. 2. Severe degenerative changes medial compartment right knee with moderate periarticular spurring.
== END 2022-09-20 09:31 | disposition home or self-care (01) ==
LOC: HO.HOSX 09:30
PROVIDERS: Visit Provider Physician Assistant
DX: Z47.1 Aftercare following joint replacement surgery (principal); Z96.651 Presence of right artificial knee joint
CPT/HCPCS: 73560; 73565; 99212

== ENCOUNTER 2022-09-26 09:09 | Outpatient (REF) | payer MEDICARE, MEDICAID, SELFPAY ==
--- NOTE | ~2022-09-26 | XR_ITS ---
EXAMINATION: XR KNEE, RIGHT XR KNEE AP STANDING CLINICAL INFORMATION: Pain. COMPARISON: Prior radiographs dated 09/12/2022. TECHNIQUE: Lateral and axial views of the right knee were obtained. AP bilateral standing view of the knees was obtained. FINDINGS: Prosthetic components of the right total knee arthroplasty are appropriately aligned without periprosthetic fracture or lucency. No component migration. No joint effusion. There is moderate asymmetric narrowing of the medial joint space compartment of the left knee, and the lateral joint space compartment is well-maintained. The lateral medial joint space compartment show peripheral osteophyte formation. There is a mild varus configuration of the left knee. XR/XR knee standing BI IMPRESSION: 1. Appropriate alignment of the right total knee arthroplasty, without evidence of complications. 2. There is moderate osteoarthritic change of the medial joint space compartment of the left knee, and mild osteoarthritic change is seen of the lateral joint space compartment. 3. There is a mild varus configuration of the left knee.
--- NOTE | ~2022-09-26 | XR_ITS ---
EXAMINATION: XR KNEE, RIGHT XR KNEE AP STANDING CLINICAL INFORMATION: Pain. COMPARISON: Prior radiographs dated 09/12/2022. TECHNIQUE: Lateral and axial views of the right knee were obtained. AP bilateral standing view of the knees was obtained. FINDINGS: Prosthetic components of the right total knee arthroplasty are appropriately aligned without periprosthetic fracture or lucency. No component migration. No joint effusion. There is moderate asymmetric narrowing of the medial joint space compartment of the left knee, and the lateral joint space compartment is well-maintained. The lateral medial joint space compartment show peripheral osteophyte formation. There is a mild varus configuration of the left knee. XR/XR knee RT 2V IMPRESSION: 1. Appropriate alignment of the right total knee arthroplasty, without evidence of complications. 2. There is moderate osteoarthritic change of the medial joint space compartment of the left knee, and mild osteoarthritic change is seen of the lateral joint space compartment. 3. There is a mild varus configuration of the left knee.
== END 2022-09-26 09:10 | disposition home or self-care (01) ==
LOC: HO.HOSX 09:09
PROVIDERS: PCP Internal Medicine; Visit Provider Orthopaedic Surgery
DX: Z47.1 Aftercare following joint replacement surgery (principal); Z96.651 Presence of right artificial knee joint
CPT/HCPCS: 73560; 73565; 99212

== ENCOUNTER 2022-10-24 10:38 | Outpatient (REF) | payer MEDICARE, MEDICAID, SELFPAY ==
--- NOTE | ~2022-10-24 | XR_ITS ---
EXAMINATION: XR KNEE, RIGHT XR KNEE, LEFT XR KNEE AP STANDING CLINICAL INFORMATION: Pain. COMPARISON: Radiographs dated 09/26/2022. TECHNIQUE: Four views of the right knee. Four views of the left knee. AP bilateral standing view of the knees was obtained. FINDINGS: Right knee: Prosthetic components of the right total knee arthroplasty are appropriately aligned without periprosthetic fracture or lucency. No component migration. No joint effusion. Left knee: Bony mineralization is normal. There is moderate asymmetric narrowing of the medial joint space compartment. The lateral joint space compartment is well-maintained. There is a slight varus configuration. There is mild narrowing of patellofemoral compartment. There is tricompartment peripheral osteophyte formation. No fracture or dislocation is seen. There is no significant left knee joint effusion. No foreign body is seen. There are atherosclerotic calcifications. XR/XR knee standing BI IMPRESSION: 1. Appropriate alignment of the right total knee arthroplasty without evidence of complications. 2. There is tricompartment osteoarthritic change of the left knee, most pronounced of the medial compartment, where it is moderate. 3. There is a slight varus configuration of the left knee. 4. No left knee fracture, dislocation or joint effusion is seen.
--- NOTE | ~2022-10-24 | XR_ITS ---
EXAMINATION: XR KNEE, RIGHT XR KNEE, LEFT XR KNEE AP STANDING CLINICAL INFORMATION: Pain. COMPARISON: Radiographs dated 09/26/2022. TECHNIQUE: Four views of the right knee. Four views of the left knee. AP bilateral standing view of the knees was obtained. FINDINGS: Right knee: Prosthetic components of the right total knee arthroplasty are appropriately aligned without periprosthetic fracture or lucency. No component migration. No joint effusion. Left knee: Bony mineralization is normal. There is moderate asymmetric narrowing of the medial joint space compartment. The lateral joint space compartment is well-maintained. There is a slight varus configuration. There is mild narrowing of patellofemoral compartment. There is tricompartment peripheral osteophyte formation. No fracture or dislocation is seen. There is no significant left knee joint effusion. No foreign body is seen. There are atherosclerotic calcifications. XR/XR knee RT 2V IMPRESSION: 1. Appropriate alignment of the right total knee arthroplasty without evidence of complications. 2. There is tricompartment osteoarthritic change of the left knee, most pronounced of the medial compartment, where it is moderate. 3. There is a slight varus configuration of the left knee. 4. No left knee fracture, dislocation or joint effusion is seen.
--- NOTE | ~2022-10-24 | XR_ITS ---
EXAMINATION: XR KNEE, RIGHT XR KNEE, LEFT XR KNEE AP STANDING CLINICAL INFORMATION: Pain. COMPARISON: Radiographs dated 09/26/2022. TECHNIQUE: Four views of the right knee. Four views of the left knee. AP bilateral standing view of the knees was obtained. FINDINGS: Right knee: Prosthetic components of the right total knee arthroplasty are appropriately aligned without periprosthetic fracture or lucency. No component migration. No joint effusion. Left knee: Bony mineralization is normal. There is moderate asymmetric narrowing of the medial joint space compartment. The lateral joint space compartment is well-maintained. There is a slight varus configuration. There is mild narrowing of patellofemoral compartment. There is tricompartment peripheral osteophyte formation. No fracture or dislocation is seen. There is no significant left knee joint effusion. No foreign body is seen. There are atherosclerotic calcifications. XR/XR knee LT 2V IMPRESSION: 1. Appropriate alignment of the right total knee arthroplasty without evidence of complications. 2. There is tricompartment osteoarthritic change of the left knee, most pronounced of the medial compartment, where it is moderate. 3. There is a slight varus configuration of the left knee. 4. No left knee fracture, dislocation or joint effusion is seen.
== END 2022-10-24 10:39 | disposition home or self-care (01) ==
LOC: HO.HOSX 10:38
PROVIDERS: PCP Internal Medicine; Visit Provider Orthopaedic Surgery
DX: M17.12 Unilateral primary osteoarthritis, left knee (principal); M25.462 Effusion, left knee; G25.81 Restless legs syndrome; Z96.651 Presence of right artificial knee joint
CPT/HCPCS: 20610; 73560; 73565; 99212; J1100

== ENCOUNTER 2022-11-11 08:48 | Outpatient (REF) | payer MEDICARE, MEDICAID, SELFPAY ==
--- NOTE | ~2022-11-11 | XR_ITS ---
EXAMINATION: Bilateral knee x-ray CLINICAL INFORMATION: Pain COMPARISON: Previous x-rays most recent October 2022 TECHNIQUE: Standing AP view of both knees and lateral and sunrise view of the right knee FINDINGS: Right knee: There is a 3 component right knee replacement in satisfactory position. No fracture, dislocation or x-ray evidence of loosening. There may be a small joint effusion. Standing AP view of the left knee demonstrates arthritis at the medial femoral tibial joint. XR/XR knee standing BI IMPRESSION: RIGHT KNEE: Satisfactory appearance of right knee replacement. LEFT KNEE: Arthritis at the medial femoral tibial joint.
--- NOTE | ~2022-11-11 | XR_ITS ---
EXAMINATION: Bilateral knee x-ray CLINICAL INFORMATION: Pain COMPARISON: Previous x-rays most recent October 2022 TECHNIQUE: Standing AP view of both knees and lateral and sunrise view of the right knee FINDINGS: Right knee: There is a 3 component right knee replacement in satisfactory position. No fracture, dislocation or x-ray evidence of loosening. There may be a small joint effusion. Standing AP view of the left knee demonstrates arthritis at the medial femoral tibial joint. XR/XR knee RT 2V IMPRESSION: RIGHT KNEE: Satisfactory appearance of right knee replacement. LEFT KNEE: Arthritis at the medial femoral tibial joint.
== END 2022-11-11 08:49 | disposition home or self-care (01) ==
LOC: HO.HOSX 08:48
PROVIDERS: Visit Provider Physician Assistant
DX: Z47.1 Aftercare following joint replacement surgery (principal); Z96.651 Presence of right artificial knee joint
CPT/HCPCS: 73560; 73565

== ENCOUNTER → 2022-11-14 12:57 | Outpatient (BNVA) | payer MEDICARE, MEDICAID, SELFPAY | PROVIDERS: PCP Internal Medicine; Visit Provider Orthopaedic Surgery | DX: M25.461 Effusion, right knee (principal); Z96.651 Presence of right artificial knee joint | CPT/HCPCS: 99212 ==

== ENCOUNTER 2022-12-15 10:00 | Outpatient (RCR) | payer MEDICARE, MEDICAID, SELFPAY ==
--- NOTE | 2022-10-10 16:57 | MHC.PT.EP ---
[facility] Office [place] Office [place] Office [address] Gabbie Nuno [address] [phone] F: [phone] F: [phone] F: [phone] F: [phone] Physical Therapy Plan of Care Date of Evaluation: Date of Surgery: Diagnosis: presence of L artificial knee joint. Assessment: Pt is a 62 y/o female referred to PT s/p TKA DOS 06/28/22 who has completed a course of physical therapy though persists with weakness and pain resulting in decreased tolerance for ambulating long distances, standing for extended duration, and performing heavy HH chores and squatting activities secondary to decreased R knee ROM, decreased R knee and B hip strength, decreased balance and pain. Pt is deemed an appropriate candidate to receive skilled PT services to address their physical impairments in order to improve their functional ability. Frequency and Duration: The patient will be seen 2 x / wk x 4 wks. Short Term Goals: Initiate home program. Improve daily pain levels from 3-8/10 to at most; 1-5/10. Mail List Librarian Goals: I with home program. Improve R knee knee extension MMT by at least 1/2 MMT Improve B hip and MMT by at least 1/5 MMT grade; initial: 4/5 B. Pt will be able to walk 2 blocks with at least a little bit of difficulty; initial: quite a bit of difficulty . Treatment Plan: Modalities to reduce pain, spasms and effusion. Manual therapy to restore motion and function. Therapeutic exercise to improve strength and flexibility. Neuromuscular re-education for posture and balance. Therapeutic activities to return to functional activities of daily living. Electronically signed by: Yevgeniy Reddy PT. Please sign and return to therapist. Thank you for your referral.
--- NOTE | 2023-02-14 17:08 | MHC.PT.DC ---
[facility] [place] [facility] [place] [facility] [place] [facility] [address] Gabbie Nuno [address] [phone] F: [phone] F: [phone] F: [phone] F: [phone] Physical Therapy Discharge Report Diagnosis: presence of L artificial knee joint. Date of Surgery: Date of Evaluation: 10/10/22 Date of Discharge: 02/14/23 Treatments to Date: 9 Cancellations to Date: No Shows to Date: Discharge Status: Improved Function Independent with HEP Patient Elected to Stop Discharge Summary: Pt with poor to fair home compliance achieved AROM 0-122 before electing to stop attending therapy for her final visits. Electronically signed by: Yevgeniy Reddy PT. Please sign and return to therapist. Thank you for your referral.
== END 2023-02-14 17:09 | disposition home or self-care (01) ==
LOC: HO.PTCHIC 10:00
PROVIDERS: PCP Internal Medicine; Visit Provider Orthopaedic Surgery
DX: Z96.651 Presence of right artificial knee joint (principal)
CPT/HCPCS: 97110; 97140; 97162; 97530

== ENCOUNTER 2022-12-29 08:35 | Outpatient (REF) | payer MEDICARE, MEDICAID, SELFPAY ==
--- NOTE | ~2022-12-29 | XR_ITS ---
EXAMINATION: Knee x-ray CLINICAL INFORMATION: Pain COMPARISON: None. TECHNIQUE: Standing AP view of both knees and lateral and sunrise view of the right knee FINDINGS: Right: There is a right knee replacement in satisfactory position. No fracture, dislocation or x-ray evidence of loosening. Small joint effusion and anterior soft tissue swelling. Standing AP view of the left knee demonstrates arthritis at the medial femoral tibial joint. XR/XR knee RT 2V IMPRESSION: Satisfactory appearance of right knee replacement. Small joint effusion and anterior soft tissue swelling.
--- NOTE | ~2022-12-29 | XR_ITS ---
EXAMINATION: Knee x-ray CLINICAL INFORMATION: Pain COMPARISON: None. TECHNIQUE: Standing AP view of both knees and lateral and sunrise view of the right knee FINDINGS: Right: There is a right knee replacement in satisfactory position. No fracture, dislocation or x-ray evidence of loosening. Small joint effusion and anterior soft tissue swelling. Standing AP view of the left knee demonstrates arthritis at the medial femoral tibial joint. XR/XR knee standing BI IMPRESSION: Satisfactory appearance of right knee replacement. Small joint effusion and anterior soft tissue swelling.
== END 2022-12-29 08:36 | disposition home or self-care (01) ==
LOC: HO.HOSX 08:35
PROVIDERS: Visit Provider Orthopaedic Surgery
DX: M25.461 Effusion, right knee (principal); Z96.651 Presence of right artificial knee joint
CPT/HCPCS: 73560; 73565; 99212

== ENCOUNTER 2023-02-04 09:09 | Outpatient (AMB) | payer MEDICARE, MEDICAID, SELFPAY ==
--- NOTE | 2023-02-04 09:54 | AM.OFFWIN_ITS ---
Intake Vital Signs 02/04/23 09:55 Height 5 ft 4 in BP 128/78 Blood Pressure Location Rt brachial Position Sitting Pulse 86 Pulse Source Pulse Oximeter Temp 98.0 F Temp Source Temporal Artery Scan Pulse Oximetry (%) 96 Intake Visit Reasons: EP fall, shoulder pain rt, lt leg (lobby) Intake Note: pt is here for c/o shoulder pain and bilateral knee pain due to fall back in November 2022 Patient Tobacco Use Status: Former Tobacco user Quit Date: 10 years ago Allergies adhesive tape [ADHESIVE TAPE] Allergy (Severe, Verified 02/04/23 10:21) SKIN TEARS pramipexole Allergy (Severe, Verified 02/04/23 10:21) Diarrhea adalimumab [From Humira] Allergy (Intermediate, Verified 02/04/23 10:21) Itching carisoprodol [From SOMA] Allergy (Intermediate, Verified 02/04/23 10:21) SWELLING, RASH cephalexin Allergy (Intermediate, Verified 02/04/23 10:21) Itching gabapentin Allergy (Intermediate, Verified 02/04/23 10:21) leg swelling sulfamethoxazole [From BACTRIM] Allergy (Intermediate, Verified 02/04/23 10:21) SWELLING,RASH trimethoprim [From BACTRIM] Allergy (Intermediate, Verified 02/04/23 10:21) SWELLING,RASH Medication List - Last Reconciled 02/04/23 by Rufino Arenas PA-C acetaminophen 650 mg (2 x 325 mg) PO Q6H PRN 30 days albuterol sulfate 90 mcg/actuation 2 puffs inhalation Q6H PRN aspirin 325 mg PO BID 6 weeks cholecalciferol (vitamin D3) 50 mcg PO DAILY 90 days clonazepam 1 mg PO BEDTIME 90 days duloxetine 60 mg PO DAILY etanercept (Enbrel Mini) mg subcut fluticasone propion-salmeterol 113-14 mcg/actuation 1 inh inhalation BID ibuprofen 600 mg PO Q8H PRN omeprazole 20 mg PO BID PRN omeprazole magnesium (Prilosec OTC) 20 mg PO DAILY quetiapine (Seroquel) 50 mg (2 x 25 mg) PO BEDTIME 90 days simvastatin 40 mg PO BEDTIME 90 days tizanidine 2 mg PO Q8H 7 days walker Folding Front wheeled walker HPI EP fall, shoulder pain rt, lt leg (lobby) HPI Details Patient is a 62-year-old female here today no bilateral knee pain and right shoulder pain from a fall in November of 2022. She is status post right knee replacement and is followed by Orthopedic surgeon here in [place]. She continues with the use of NSAIDs and cool compress of her knees though have not been very affective. Report recently falling out of a camper injuring her left knee and right shoulder. Has been having pain ever since. [facility] Medical History JOHN positive Asthma, moderate Back pain Bursitis of right shoulder Chest pain Chronic GERD Chronic pain syndrome Constipation by delayed colonic transit Degenerative disc disease Depression, major, in remission DJD (degenerative joint disease) Fibromyalgia History of COVID-19 Lipid disorder Periodic limb movement disorder Postlaminectomy syndrome of cervical region Postlaminectomy syndrome of lumbar region Pre-diabetes Right shoulder pain Sciatica, right side Sleeping difficulty Spinal stenosis Surgical History H/O colonoscopy H/O shoulder surgery H/O spinal fusion H/O: hysterectomy History of esophagogastroduodenoscopy (EGD) History of gastric bypass History of lumbar fusion History of sleeve gastrectomy Hx of cholecystectomy S/P placement of nerve stimulator Family History Father No problems noted. Mother No problems noted. Other Mental health disorder Social History Household Members: Other Household Members Other:: son Housing: House Are you a primary patient care technician to a significant other at home: No Do you presently have visiting nurse or other home services: No Alcohol intake: current Alcohol intake frequency: holidays/special occasions only Patient Tobacco Use Status: Former Tobacco user Quit Date: 10 years ago Tobacco use type: Cigarette Years Smoked: 30 e-Cigarette/Vaping Use: Never Used Substance Use Type: Marijuana service: No Current occupational status: disabled Current occupation: right handed Cognitive needs: No Hearing needs: No Vision needs: Yes Review of Systems Const Denies headache(s) Eyes Denies loss of vision ENT Denies vertigo, Denies dizziness, Denies headache(s) and Denies sore throat Card Denies chest pain, Denies leg edema and Denies lightheadedness Resp Denies cough, Denies hemoptysis and Denies wheezing GI Denies abdominal pain, Denies melena, Denies constipation, Denies diarrhea and Denies vomiting Denies urinary frequency, Denies dysuria and Denies urinary urgency Musc Denies arthralgias, Denies joint swelling, Denies numbness and Denies tingling Neuro Denies Abnormal speech present, Denies behavioral changes, Denies vertigo, Denies dizziness, Denies headache(s), Denies loss of vision, Denies memory loss, Denies numbness and Denies tingling Psych Denies anxiety, Denies behavioral changes, Denies depression, Denies memory loss and Denies panic attacks Rajeev/Lymph Denies easy bleeding and Denies easy bruising Aller/Immun Denies wheezing Physical Exam Vital Signs: Last Vital Signs Temp 98.0 F 02/04/23 09:55 Pulse 86 02/04/23 09:55 BP 128/78 02/04/23 09:55 Pulse Ox 96 02/04/23 09:55 Const General: healthy appearing, no acute distress, alert and awake Nutritional Appearance: well nourished Orientation/consciousness: oriented to person, oriented to place and oriented to time HEENT Ears: TM's normal bilaterally General nose exam: Normal nasal mucous membranes and turbinates present Eyes Conjunctivae: conjunctivae normal Sclerae: sclerae normal Pupils: Equal, round and reactive pupils present Neck Neck: Yes no lymphadenopathy and Yes no JVD Thyroid: Thyroid normal Carotids: no bruits Resp Effort & Inspection: normal respiratory effort and not tachypneic Auscultation: no crackles, no rales, no rhonchi and no wheezes Cardio Rate: regular rate Rhythm: regular rhythm Heart sounds: no murmurs and normal S1 and S2 GI Palpation (GI): Soft to palpation, nontender, no hepatomegaly and no splenomegaly Auscultation: normal bowel sounds Skin General skin exam: no rashes or lesions noted and dry skin Neuro General: oriented to person, oriented to place and oriented to time Cranial nerves: Yes Equal, round and reactive pupils present Speech: No Abnormal speech present Gait exam (Neuro): Normal gait present Motor exam (neuro): no tremor noted Extrem Other: RIGHT SHOULDER: SOME LIMITED RANGE OF MOTION DUE TO PAIN, NEGATIVE EMPTY CAN ROCKING STATUS. LEFT KNEE: FULL RANGE OF MOTION, SOME MILD TENDERNESS TO PALPATION OVER POSTERIOR ASPECT OF KNEE. NO PALPABLE LUMP OVER POSTERIOR KNEE. Right upper extremity: full ROM Left upper extremity: full ROM Right lower extremity: full ROM; no edema Left lower extremity: full ROM; no edema Psych Mental Status: mental status grossly normal Speech and movement: Normal speech and movement present Affect: normal affect Attitude: cooperative Thought process: Normal thought process present Assessment & Plan Assessment & Plan (1) Tendinopathy of right shoulder: Code(s): M67.911 - Unspecified disorder of synovium and tendon, right shoulder Plan: Patient seems to have a tendinopathy/shoulder impingement syndrome in the right shoulder. Has been a chronic issue and will likely benefit from physical therapy. Will send for x-ray to evaluate any significant arthritis (2) Posterior left knee pain: Code(s): M25.562 - Pain in left knee Plan: patient reporting posterior left knee pain since fall in November of 2022. Will send for x-ray to evaluate. Seems most likely soft tissue and advised on conservative treatment such as cool compress NSAIDs and will supply with muscle relaxer. Orders: Orders XR knee LT 3V Today M25.562 - Pain in left knee XR shoulder RT min 2V Today M67.911 - Unspecified disorder of synovium and tendon, right shoulder Medications: New tizanidine 2 mg PO Q8H 7 days 21 tabs 0RF muscle spasticity M67.911 - Unspeci fied disorder of synovium and tendon, right shoulder Coding Level of Care Code Est Pt Level 3 (08623) Diagnoses Tendinopathy of right shoulder M67.911 Posterior left knee pain M25.562
[2023-02-04 09:55] VITALS: BP 128/78; PULSE 86; TEMP 36.7; O2SAT 96
== END 2023-02-04 10:23 | disposition home or self-care (01) ==
PROVIDERS: PCP Internal Medicine; Visit Provider Physician Assistant
DX: M67.911 Unspecified disorder of synovium and tendon, right shoulder (principal); M25.562 Pain in left knee
CPT/HCPCS: 99213

== ENCOUNTER 2023-02-04 10:21 | Outpatient (REF) | payer MEDICARE, MEDICAID, SELFPAY ==
--- NOTE | ~2023-02-04 | XR_ITS ---
Examination: XR knee LT 3V, XR shoulder RT min 2V Indication: Pain Comparison: No pertinent prior studies are currently available for comparison. Technique: 3 views of the left knee and 4 views of the right shoulder Findings: Left knee: Small joint effusion. Extensive tricompartmental degenerative changes are seen with prominent osteophyte formation and joint space loss more so in the medial compartment and patellofemoral compartment. No acute fracture or dislocation. Surrounding soft tissues demonstrate mild prepatellar soft tissue prominence. Right shoulder: Humeral head is well-seated in the glenoid fossa. Degenerative changes in the glenohumeral and acromioclavicular joint spaces are noted with hypertrophic osteophytes. No acute fracture or dislocation. Visualized right upper chest unremarkable XR/XR shoulder RT min 2V Impression: Degenerative and chronic appearing changes but no acute fracture or dislocation seen in the left knee and right shoulder.
--- NOTE | ~2023-02-04 | XR_ITS ---
Examination: XR knee LT 3V, XR shoulder RT min 2V Indication: Pain Comparison: No pertinent prior studies are currently available for comparison. Technique: 3 views of the left knee and 4 views of the right shoulder Findings: Left knee: Small joint effusion. Extensive tricompartmental degenerative changes are seen with prominent osteophyte formation and joint space loss more so in the medial compartment and patellofemoral compartment. No acute fracture or dislocation. Surrounding soft tissues demonstrate mild prepatellar soft tissue prominence. Right shoulder: Humeral head is well-seated in the glenoid fossa. Degenerative changes in the glenohumeral and acromioclavicular joint spaces are noted with hypertrophic osteophytes. No acute fracture or dislocation. Visualized right upper chest unremarkable XR/XR knee LT 3V Impression: Degenerative and chronic appearing changes but no acute fracture or dislocation seen in the left knee and right shoulder.
== END 2023-02-04 10:22 | disposition home or self-care (01) ==
LOC: HO.HMGCX 10:21
PROVIDERS: PCP Internal Medicine; Visit Provider Physician Assistant
DX: M25.562 Pain in left knee (principal); M67.911 Unspecified disorder of synovium and tendon, right shoulder
CPT/HCPCS: 73030; 73562

== ENCOUNTER 2023-02-15 08:45 | Outpatient (AMB) | payer MEDICARE, MEDICAID, SELFPAY ==
--- NOTE | 2023-02-15 09:08 | A.OFFVIS_ITS ---
Intake Intake Visit Reasons: ov- right shoulder injection Intake Note: Kaylah lemus 62 year old right hand dominant female presents today for a follow up of right shoulder. Patient reports when she was walking out of her camper to avoid falling she held the rail with her right arm to avoid falling. She has sharp pain that radiates from shoulder to bicep area with movement of arm. She is requesting a cortisone injection. Allergies adhesive tape [ADHESIVE TAPE] Allergy (Severe, Verified 02/15/23 09:12) SKIN TEARS pramipexole Allergy (Severe, Verified 02/15/23 09:12) Diarrhea adalimumab [From Humira] Allergy (Intermediate, Verified 02/15/23 09:12) Itching carisoprodol [From SOMA] Allergy (Intermediate, Verified 02/15/23 09:12) SWELLING, RASH cephalexin Allergy (Intermediate, Verified 02/15/23 09:12) Itching gabapentin Allergy (Intermediate, Verified 02/15/23 09:12) leg swelling sulfamethoxazole [From BACTRIM] Allergy (Intermediate, Verified 02/15/23 09:12) SWELLING,RASH trimethoprim [From BACTRIM] Allergy (Intermediate, Verified 02/15/23 09:12) SWELLING,RASH HPI ov- right shoulder injection HPI Details 62-year-old right hand dominant female who presents to the office today for ongoing right shoulder pain. She is s/p Right shoulder bicep tenotomy with SAD DCE [place] [address] Wills. She was doing well with occassional pain until she had a fall out of a camper where she was holding a grab bar and fell on her right side, about 2 months ago. She states she has pain in her right shoulder which radiates to her bicep region. Her pain is aggravated with leaning on her right side and with certain movements. She has difficulty with reaching above shoulder height and behind her back. She recently had a RT TKA done with Dr Wills. She does not have a history of diabetes. [facility] Medical History JOHN positive Asthma, moderate Back pain Bursitis of right shoulder Chest pain Chronic GERD Chronic pain syndrome Constipation by delayed colonic transit Degenerative disc disease Depression, major, in remission DJD (degenerative joint disease) Fibromyalgia History of COVID-19 Lipid disorder Periodic limb movement disorder Postlaminectomy syndrome of cervical region Postlaminectomy syndrome of lumbar region Pre-diabetes Right shoulder pain Sciatica, right side Sleeping difficulty Spinal stenosis Surgical History H/O colonoscopy H/O shoulder surgery H/O spinal fusion H/O: hysterectomy History of esophagogastroduodenoscopy (EGD) History of gastric bypass History of lumbar fusion History of sleeve gastrectomy Hx of cholecystectomy S/P placement of nerve stimulator Family History Father No problems noted. Mother No problems noted. Other Mental health disorder Social History Household Members: Other Household Members Other:: son Housing: House Are you a primary child care nurse to a significant other at home: No Do you presently have visiting nurse or other home services: No Alcohol intake: current Alcohol intake frequency: holidays/special occasions only Patient Tobacco Use Status: Former Tobacco user Quit Date: 10 years ago Tobacco use type: Cigarette Years Smoked: 30 e-Cigarette/Vaping Use: Never Used Substance Use Type: Marijuana service: No Current occupational status: disabled Current occupation: right handed Cognitive needs: No Hearing needs: No Vision needs: Yes Review of Systems Const All systems reviewed & are unremarkable except as noted in HPI and below Physical Exam Extrem Other: Right shoulder normal to inspection. Tenderness over the bicipital groove and along the deltoid region of the shoulder. Forward flexion to 100, external rotation to 75, internal rotation to S1.Mild discomfort with RTC strength. Negative Francis and cross body abduction. NVI. Office Procedures Joint Injection/Drain Joint Injection/Drain Primary Site: right shoulder Prep: site was prepped using aseptic technique, ethochloride spray was applied and injection warnings given Injected: 80 mg of, DepoMedrol, with 8 mL of, 1% plain lidocaine and in the subcromial space Approach Used: posterolateral Procedure: The patient tolerated the procedure well and there was some relief with the local anesthesia Coding 19183 - Glenohumeral/Tronchanteric Bursa/Intraarticular Procedure code (CPT) selection complete Results Reviewed Results Reviewed: 02/15/23 09:18 Lidocaine HCl 2 % MPF [Xylocaine 2 % MPF] 5 ml .ROUTE .STK-MED ONE methylPREDNISolone acetate [DEPO-MedroL] 80 mg .ROUTE .STK-MED ONE X-rays of the right shoulder obtained in the office today show significant glenohumeral joint arthritis and evidence of postop changes evident from prior surgery. Assessment & Plan Assessment & Plan (1) Tendinopathy of right shoulder: Code(s): M67.911 - Unspecified disorder of synovium and tendon, right shoulder (2) Osteoarthritis of right glenohumeral joint: Code(s): M19.011 - Primary osteoarthritis, right shoulder Plan We discussed options today which include steroid injection. They did consent to move forward with the injection, which was tolerated well. I recommended rest, ice and elevation and OTC anti-inflammatories PRN for discomfort. We did briefly discuss TSA and on February 27, when she will be returning to see Dr. Wills for her RT TKA, if her shoulder is not doing better from the injection, they can discuss further treatment options for the shoulder. Orders: Orders XR shoulder RT min 2V Today M25.511 - Pain in right shoulder Patient Instructions: Scribed for Mulugeta Carrington PA-C, by Christiano Jiménez medical corps officer, on 02/15/2023 at 9:00 AM ROSA. Mulugeta Colón PA-C, have personally reviewed and agree with the information entered by the scribe. Coding Level of Care Code Est Pt Level 3 (97521) Diagnoses Tendinopathy of right shoulder M67.911 Osteoarthritis of right glenohumeral joint M19.011 CPT Codes Coding - Joint 7: 32984 - Glenohumeral/Tronchanteric Bursa/Intraarticular ([id number])
== END 2023-02-15 09:40 | disposition home or self-care (01) ==
PROVIDERS: PCP Internal Medicine; Visit Provider Physician Assistant
DX: M67.911 Unspecified disorder of synovium and tendon, right shoulder (principal); M19.011 Primary osteoarthritis, right shoulder
CPT/HCPCS: 20610; 99213

== ENCOUNTER 2023-02-15 11:22 | Outpatient (REF) | payer MEDICARE, MEDICAID, SELFPAY ==
--- NOTE | ~2023-02-15 | XR_ITS ---
EXAMINATION: XR SHOULDER, RIGHT CLINICAL INFORMATION: Reason for Exam M25.511 - Pain in right shoulder COMPARISON: None TECHNIQUE: Three views of the shoulder. FINDINGS: No acute fracture or dislocation. Mild to moderate degenerative changes of the shoulder with bulky humeral osteophytes. Soft tissues are unremarkable. XR/XR shoulder RT min 2V IMPRESSION: * Mild to moderate degenerative changes of the shoulder.
== END 2023-02-15 11:23 | disposition home or self-care (01) ==
LOC: HO.HOSX 11:22
PROVIDERS: Visit Provider Physician Assistant
DX: M19.011 Primary osteoarthritis, right shoulder (principal)
CPT/HCPCS: 20610; 73030; 99212; J1040

== ENCOUNTER 2023-02-16 09:03 | Outpatient (REF) | payer MEDICARE, MEDICAID, SELFPAY ==
[2023-02-16 11:15] LABS: MANUAL DIFF FLAG NO
[2023-02-16 12:09] LABS: Basophils Absolute Auto 0.1 X10*3/uL (0.0-0.2); Basophils Percent Auto 0.5 % (0-2); Hematocrit 42.4 % (37.0-47.0); Imm Gran Abs Auto 0.05 X10*3/uL (0.00-0.03); Imm Gran Pct Auto 0.4 % (0.0-0.4); Lymphocytes Absolute Auto 1.7 X10*3/uL (1.2-4.9); Mean Corpuscular HGB Conc 30.7 g/dl (31.0-35.0); Mean Corpuscular Hemoglobin 26.7 pg (27.0-33.0); Mean Corpuscular Volume 87.2 fL (80.0-98.0); Mean Platelet Volume 11.9 fL (9.4-12.3); Monocytes Absolute Auto 1.1 X10*3/uL (0.1-1.2); Monocytes Percent Auto 9.3 % (2-11); Neutrophils Absolute Auto 8.6 x10*3/uL (2.0-8.3); Neutrophils Percent Auto 74.8 % (45-73); Platelet Count 323 X10*3/uL (160-400); Red Blood Count 4.86 X10*6/uL (4.20-5.50); Red Cell Distribution Width 13.5 % (11.0-16.0); White Blood Count 11.6 X10*3/uL (4.8-10.8)
[2023-02-16 12:15] LABS: Alanine Aminotransferase 10 U/L (0-31); Albumin Level 4.4 g/dL (3.5-5.0); Alkaline Phosphatase 72 U/L (39-117); Anion Gap 16 (12-20); Aspartate Amino Transferase 12 U/L (5-31); Bilirubin Total 0.3 mg/dL (0.0-1.0); Blood Urea Nitrogen 12 mg/dL (9-16); Calcium 9.7 mg/dL (8.4-10.2); Carbon Dioxide 23 mmol/L (22-29); Chloride 106 mmol/L (96-108); Cholesterol 171 mg/dL; Estimated Glomerular Filt Rate > 60; Glucose Fasting 63 mg/dL (60-99); HDL Cholesterol 50 mg/dL; LDL Cholesterol Calculated 109 mg/dl; Potassium 4.2 mmol/L (3.3-5.1); Sodium 141 mmol/L (135-145); Total Protein 7.4 g/dL (6.5-8.0); Triglycerides 63 mg/dL
== END 2023-02-16 09:04 | disposition home or self-care (01) ==
LOC: HO.HMGCLDS 09:03
PROVIDERS: PCP Internal Medicine; Visit Provider Internal Medicine
DX: E66.09 Other obesity due to excess calories (principal); F32.2 Major depressive disorder, single episode, severe without psychotic features; F41.1 Generalized anxiety disorder; G47.61 Periodic limb movement disorder; J45.909 Unspecified asthma, uncomplicated; L40.50 Arthropathic psoriasis, unspecified; R73.03 Prediabetes
CPT/HCPCS: 36415; 80053; 80061; 85025

== ENCOUNTER 2023-02-17 11:29 | Outpatient (AMB) | payer MEDICARE, MEDICAID, SELFPAY ==
--- NOTE | 2023-02-17 11:31 | MHC.PC.OV ---
Vital Signs 02/17/23 11:32 Height 5 ft 4 in Weight 201 lb BMI 34.5 BP 128/70 Blood Pressure Location Rt brachial Position Sitting Pulse 69 Pulse Source Pulse Oximeter Pulse Oximetry (%) 96 Intake Visit Reasons: Annual PE Cardiology Specialist Required: No Accompanied by: Self / Same As Patient Allergies adhesive tape [ADHESIVE TAPE] Allergy (Severe, Verified 02/17/23 11:31) SKIN TEARS pramipexole Allergy (Severe, Verified 02/17/23 11:31) Diarrhea adalimumab [From Humira] Allergy (Intermediate, Verified 02/17/23 11:31) Itching carisoprodol [From SOMA] Allergy (Intermediate, Verified 02/17/23 11:31) SWELLING, RASH cephalexin Allergy (Intermediate, Verified 02/17/23 11:31) Itching gabapentin Allergy (Intermediate, Verified 02/17/23 11:31) leg swelling sulfamethoxazole [From BACTRIM] Allergy (Intermediate, Verified 02/17/23 11:31) SWELLING,RASH trimethoprim [From BACTRIM] Allergy (Intermediate, Verified 02/17/23 11:31) SWELLING,RASH Medication List - Last Reconciled 02/17/23 by Amaya Harris MD acetaminophen 650 mg (2 x 325 mg) PO Q6H PRN 30 days albuterol sulfate 90 mcg/actuation 2 puffs inhalation Q6H PRN aspirin 325 mg PO BID 6 weeks celecoxib (Celebrex) 200 mg PO BID 30 days cholecalciferol (vitamin D3) 50 mcg PO DAILY 90 days clonazepam 1 mg PO BEDTIME 90 days duloxetine 60 mg PO DAILY etanercept (Enbrel Mini) mg subcut fluticasone propion-salmeterol 113-14 mcg/actuation 1 inh inhalation BID ibuprofen 600 mg PO Q8H PRN omeprazole 20 mg PO BID PRN quetiapine (Seroquel) 50 mg (2 x 25 mg) PO BEDTIME 90 days simvastatin 40 mg PO BEDTIME 90 days tizanidine 2 mg PO Q8H 7 days walker Folding Front wheeled walker Tobacco use date assessed: 08/19/22 Dental Screening Dental Screen Date: 02/17/23 Did you have a dental visit in the last 12 months?: No Did you have a dental problem in the last 6 months where you did not have access to dental care?: No Was dental information given to patient?: Yes HPI Annual PE HPI Details Patient is extremely year old female came in today for physical examination Mammogram was September of this year Pap smear through the [facility] O[facility]YN breast exam through OBGYN as well. Colonoscopy through Gastroenterology at [facility] that was done last year patient says that it was normal and she was told that next 1 will be in 10 years Patient is now seeing a psychiatrist however she is not sure if he will be filling her medications I have sent medication for next 3 months patient was instructed to talk to Psychiatry so they can take over the medication. Follow-up 3 months On exam today she failed in secondary to dizziness and arthritis in her knees She have a history of right knee total replacement and continued to have pain She also have pain in her right shoulder with some limitation she is seeing an orthopedic doctor for that. [facility] Medical History JOHN positive Asthma, moderate Back pain Bursitis of right shoulder Chest pain Chronic GERD Chronic pain syndrome Constipation by delayed colonic transit Degenerative disc disease Depression, major, in remission DJD (degenerative joint disease) Fibromyalgia History of COVID-19 Lipid disorder Periodic limb movement disorder Postlaminectomy syndrome of cervical region Postlaminectomy syndrome of lumbar region Pre-diabetes Right shoulder pain Sciatica, right side Sleeping difficulty Spinal stenosis Surgical History H/O colonoscopy H/O shoulder surgery H/O spinal fusion H/O: hysterectomy History of esophagogastroduodenoscopy (EGD) History of gastric bypass History of lumbar fusion History of sleeve gastrectomy Hx of cholecystectomy S/P placement of nerve stimulator Family History Father No problems noted. Mother No problems noted. Other Mental health disorder Social History Household Members: Other Household Members Other:: son Housing: House Are you a primary care management coordinator to a significant other at home: No Do you presently have visiting nurse or other home services: No Alcohol intake: current Alcohol intake frequency: holidays/special occasions only Patient Tobacco Use Status: Former Tobacco user Quit Date: 10 years ago Tobacco use type: Cigarette Years Smoked: 30 e-Cigarette/Vaping Use: Never Used Substance Use Type: Marijuana service: No Current occupational status: disabled Current occupation: right handed Cognitive needs: No Hearing needs: No Vision needs: Yes Questionnaire Thrive Questionnaire Date Thrive assessed: 08/19/22 CATARINA-7 AMB Questionnaire CATARINA-7 Date CATARINA - 7 assessed: 08/19/22 Source: Developed by Drs. Andrew Lamb, Julia Olivas, Alfonso Silva and colleagues, with an educational elvia from [employer]. Review of Systems Const Denies chills, Denies fever(s) and Denies headache(s) Eyes Denies blurry vision ENT Denies headache(s), Denies nasal discharge, Denies nasal obstruction, Denies odynophagia and Denies sinus pain Card Denies chest pain at rest and Denies chest pain with activity Resp Denies cough and Denies hemoptysis GI Denies diarrhea, Denies odynophagia, Denies vomiting and Denies hematemesis Reports as per HPI Musc Denies abnormal gait Skin/Breast Reports as per HPI Neuro Denies Neuro-related abnormal movements, Denies Abnormal speech present, Denies abnormal gait, Denies headache(s) and Denies Sensory deficit (Neuro) Endo Reports as per HPI Rajeev/Lymph Reports as per HPI Aller/Immun Reports as per HPI Physical exam (Primary Care) Vital Signs: Last Vital Signs Pulse 69 02/17/23 11:32 BP 128/70 02/17/23 11:32 Pulse Ox 96 02/17/23 11:32 BMI result Body Mass Index 34.5 Tobacco/Smoking Status: Tobacco use Status Tobacco use date assessed 08/19/22 02/17/23 11:32 Patient Tobacco Use Status Former Tobacco user 02/17/23 11:32 Tobacco use type Cigarette 02/17/23 11:32 e-Cigarette/Vaping Use Never Used 02/17/23 11:32 Thrive Assessment: Date of Thrive Assessment Date Thrive assessed 08/19/22 02/17/23 11:32 Const General: cooperative, comfortable and no acute distress Orientation/consciousness: patient oriented x3 HENMT Head: Yes normocephalic and Yes atraumatic Eyes General: appearance normal, both eyes and all related structures Pupils: Equal, round and reactive pupils present EOM: EOMs intact bilaterally Neck Neck: Yes supple and No lymphadenopathy Thyroid: Thyroid normal Lymphatic: no lymphadenopathy noted Resp Effort & Inspection: normal respiratory effort and able to speak in complete sentences Auscultation: clear to auscultation bilaterally Cardio Heart sounds: S1 normal heart sound present and S2 normal heart sound present GI Palpation (GI): Soft to palpation and nontender Auscultation: normal bowel sounds General: Yes no CVA tenderness Back/Spine/Pelvis Back: no CVA tenderness Skin General skin exam: elasticity normal and turgor normal Neuro General: patient oriented x3 and gait normal Cranial nerves: Yes Equal, round and reactive pupils present Speech: No Abnormal speech present Sensory Exam: No Sensory deficit (Neuro) Coordination: Romberg test negative Extrem General: Yes normal exam except as noted and No edema Assessment and Plan Assessment & Plan (1) Encounter for general adult medical examination with abnormal findings: Code(s): Z00.01 - Encounter for general adult medical examination with abnormal findings (2) Difficulty sleeping: Code(s): G47.9 - Sleep disorder, unspecified (3) Chronic GERD: Code(s): K21.9 - Gastro-esophageal reflux disease without esophagitis (4) Severe major depression: Code(s): F32.2 - Major depressive disorder, single episode, severe without psychotic features (5) Obesity due to excess calories: Code(s): E66.09 - Other obesity due to excess calories Qualifiers: Body mass index: BMI 38.0-38.9 Obesity classification: adult class 2 (BMI 35 - 39.9) Serious obesity comorbidity presence: with serious comorbidity Qualified Code(s): E66.01 - Morbid (severe) obesity due to excess calories; Z68.38 - Body mass index [BMI] 38.0-38.9, adult (6) Anxiety, generalized: Code(s): F41.1 - Generalized anxiety disorder (7) Psoriatic arthropathy: Code(s): L40.50 - Arthropathic psoriasis, unspecified (8) Pre-diabetes: Code(s): R73.03 - Prediabetes (9) Asthma, moderate: Code(s): J45.909 - Unspecified asthma, uncomplicated Qualifiers: Asthma complication type: uncomplicated Asthma persistence: persistent Qualified Code(s): J45.40 - Moderate persistent asthma, uncomplicated (10) Periodic limb movement disorder: Code(s): G47.61 - Periodic limb movement disorder Plan Mammogram was September of this year Pap smear through the to [facility] OBGYN breast exam through OBGYN as well. Colonoscopy through Gastroenterology at [facility] that was done last year patient says that it was normal and she was told that next 1 will be in 10 years Patient is now seeing a psychiatrist however she is not sure if he will be filling her medications I have sent medication for next 3 months patient was instructed to talk to Psychiatry so they can take over the medication. Follow-up 3 months On exam today she failed in secondary to dizziness and arthritis in her knees She have a history of right knee total replacement and continued to have pain She also have pain in her right shoulder with some limitation she is seeing an orthopedic doctor for that. Medications: Refilled clonazepam administer 30 minutes before bedtime 1 mg PO BEDTIME 90 days 90 tabs 0RF G47.61 - Periodic limb movement disorder Coding Level of Care Code Est Pt Prev Care 40-64y(02438) Diagnoses Encounter for general adult medical examination with abnormal findings Z00.01 Difficulty sleeping G47.9 Chronic GERD K21.9 Severe major depression F32.2 Obesity due to excess calories E66.01; Z68.38 Body mass index: BMI 38.0-38.9 Obesity classification: adult class 2 (BMI 35 - 39.9) Serious obesity comorbidity presence: with serious comorbidity Anxiety, generalized F41.1 Psoriatic arthropathy L40.50 Pre-diabetes R73.03 Asthma, moderate J45.40 Asthma complication type: uncomplicated Asthma persistence: persistent Periodic limb movement disorder G47.61
[2023-02-17 11:32] VITALS: BP 128/70; PULSE 69; O2SAT 96; BMI 34.5
== END 2023-02-17 13:14 | disposition home or self-care (01) ==
PROVIDERS: Visit Provider Internal Medicine
DX: Z00.01 Encounter for general adult medical examination with abnormal findings (principal); K21.9 Gastro-esophageal reflux disease without esophagitis; E66.01 Morbid (severe) obesity due to excess calories; Z68.38 Body mass index [BMI] 38.0-38.9, adult; F32.2 Major depressive disorder, single episode, severe without psychotic features; G47.9 Sleep disorder, unspecified; F41.1 Generalized anxiety disorder; L40.50 Arthropathic psoriasis, unspecified; R73.03 Prediabetes; J45.40 Moderate persistent asthma, uncomplicated; G47.61 Periodic limb movement disorder
CPT/HCPCS: 99396

== ENCOUNTER 2023-02-27 08:33 | Outpatient (AMB) | payer MEDICARE, MEDICAID, SELFPAY ==
--- NOTE | 2023-02-27 08:38 | A.OFFVIS_ITS ---
Intake Intake Visit Reasons: Newprob-Tendinopathy of right shoulder Intake Note: Kaylah is a 62 year old right hand dominant female who presents today for a follow up of her right shoulder. Last injection was done 02/15/23 by Mulugeta with little to no relief. She would like to discuss possible surgery. Right TKA done in June of 2022, she explains that this knee is feeling unstable and is giving out. Allergies adhesive tape [ADHESIVE TAPE] Allergy (Severe, Verified 02/17/23 11:31) SKIN TEARS pramipexole Allergy (Severe, Verified 02/17/23 11:31) Diarrhea adalimumab [From Humira] Allergy (Intermediate, Verified 02/17/23 11:31) Itching carisoprodol [From SOMA] Allergy (Intermediate, Verified 02/17/23 11:31) SWELLING, RASH cephalexin Allergy (Intermediate, Verified 02/17/23 11:31) Itching gabapentin Allergy (Intermediate, Verified 02/17/23 11:31) leg swelling sulfamethoxazole [From BACTRIM] Allergy (Intermediate, Verified 02/17/23 11:31) SWELLING,RASH trimethoprim [From BACTRIM] Allergy (Intermediate, Verified 02/17/23 11:31) SWELLING,RASH HPI Newprob-Tendinopathy of right shoulder HPI Details Kaylah is a 62 year old woman who presents to discuss her right shoulder pain. She was last seen by JEZ Carrington on 01/26/23 and received a steroid injection, which she says did not help. She complains of pain with daily activity, worse with overhead & behind-back activity, and at night. She says her pain began after falling out of a camper ~3 months ago. She has a hx of right shoulder with me in 2020, she has not been to PT for her shoulder since just after her surgery. She is ~8 months S/P right TKA, with effusion. She says her knee continues to feel unstable and be swollen after activity. She says it feels loose and unreliable . She says she has some worse pain at night, which wakes her up. She has been trying to work on strengthening and taking Ibuprofen. She is tired of feeling limited in her daily activities. [facility] Medical History JOHN positive Asthma, moderate Back pain Bursitis of right shoulder Chest pain Chronic GERD Chronic pain syndrome Constipation by delayed colonic transit Degenerative disc disease Depression, major, in remission DJD (degenerative joint disease) Fibromyalgia History of COVID-19 Lipid disorder Periodic limb movement disorder Postlaminectomy syndrome of cervical region Postlaminectomy syndrome of lumbar region Pre-diabetes Right shoulder pain Sciatica, right side Sleeping difficulty Spinal stenosis Surgical History H/O colonoscopy H/O shoulder surgery H/O spinal fusion H/O: hysterectomy History of esophagogastroduodenoscopy (EGD) History of gastric bypass History of lumbar fusion History of sleeve gastrectomy Hx of cholecystectomy S/P placement of nerve stimulator Family History Father No problems noted. Mother No problems noted. Other Mental health disorder Social History Household Members: Other Household Members Other:: son Housing: House Are you a primary adult care manager to a significant other at home: No Do you presently have visiting nurse or other home services: No Alcohol intake: current Alcohol intake frequency: holidays/special occasions only Patient Tobacco Use Status: Former Tobacco user Quit Date: 10 years ago Tobacco use type: Cigarette Years Smoked: 30 e-Cigarette/Vaping Use: Never Used Substance Use Type: Marijuana service: No Current occupational status: disabled Current occupation: right handed Cognitive needs: No Hearing needs: No Vision needs: Yes Review of Systems Const All systems reviewed & are unremarkable except as noted in HPI and below Physical Exam Const General: no acute distress and alert Orientation/consciousness: patient oriented x3 Neuro General: patient oriented x3 Extrem Other: Right Shoulder: 4/5 empty can Scapular recruitment with activation + H&N Right Knee: Excellent ROM well-healed No effusion Poor quadriceps activation and tone compared to left Psych Appearance: grossly normal Affect: normal affect Attitude: cooperative Results Reviewed Results Reviewed: I personally reviewed relevant radiographs. Mild to moderate degenerative changes of the shoulder. Assessment & Plan Assessment & Plan (1) Impingement syndrome of right shoulder: Code(s): M75.41 - Impingement syndrome of right shoulder Plan: This is a 62 year old woman with right shoulder impingement. This has been present for ~3 months after a fall, and she found no relief from her injection on 02/15/23 with JEZ Carrington.. She has pain with daily activity, worse with overhead & behind back activities, and at night. I recommend PT and a MRI to assess her shoulder. I ordered an MRI and PT, she will follow up after the MRI for review. (2) Status post total knee replacement, right: Code(s): Z96.651 - Presence of right artificial knee joint Plan: S/P right TKA, DOS: 06/28/22, with ongoing effusion. She has good ROM, but continues to have pain with daily activity, that also wakes her at night. She has a Hx of falls due to her knee buckling. I ordered another course of PT to work on quad strengthening exercises,\. (3) Rotator cuff tendonitis: Code(s): M75.80 - Other shoulder lesions, unspecified shoulder Qualifiers: Laterality: right Qualified Code(s): M75.81 - Other shoulder lesions, right shoulder Plan Scribed for López Wills MD by Speedy Guzman, lpn or medical assistant, on 02/27/23 at 9:00 AM, EST. Orders: Orders PT Evaluation and Treatment Today M75.80 - Other shoulder lesions, unspecified shoulder, Z96.651 - Presence of right artificial knee joint MR shoulder RT wo con Today M67.911 - Unspecified disorder of synovium and tendon, right shoulder Coding Level of Care Code Est Pt Level 4 (90941) Diagnoses Impingement syndrome of right shoulder M75.41 Status post total knee replacement, right Z96.651 Rotator cuff tendonitis M75.81 Laterality: right
== END 2023-02-27 09:15 | disposition home or self-care (01) ==
PROVIDERS: PCP Internal Medicine; Visit Provider Orthopaedic Surgery
DX: M75.41 Impingement syndrome of right shoulder (principal); Z96.651 Presence of right artificial knee joint; M75.81 Other shoulder lesions, right shoulder; M25.461 Effusion, right knee
CPT/HCPCS: 99214

== ENCOUNTER → 2023-02-27 08:33 | Outpatient (BNVA) | payer MEDICARE, MEDICAID, SELFPAY | PROVIDERS: PCP Internal Medicine; Visit Provider Orthopaedic Surgery | DX: M75.41 Impingement syndrome of right shoulder (principal); M75.81 Other shoulder lesions, right shoulder; M25.461 Effusion, right knee; Z96.651 Presence of right artificial knee joint | CPT/HCPCS: 99212 ==

== ENCOUNTER 2023-03-04 10:35 | Outpatient (AMB) | payer MEDICARE, MEDICAID, SELFPAY ==
[2023-03-04 11:01] VITALS: BP 118/62; PULSE 65; TEMP 36.6; O2SAT 96
--- NOTE | 2023-03-04 11:01 | MHC.OFFWIV ---
Intake Vital Signs 03/04/23 11:01 Height 5 ft 4 in BP 118/62 Blood Pressure Location Lt brachial Position Sitting Pulse 65 Pulse Source Pulse Oximeter Temp 97.8 F Temp Source Temporal Artery Scan Pulse Oximetry (%) 96 Intake Visit Reasons: EST/upper back pain Intake Note: pt is here for c/o upper back pain Patient Tobacco Use Status: Former Tobacco user Quit Date: 10 years ago Allergies adhesive tape [ADHESIVE TAPE] Allergy (Severe, Verified 03/04/23 11:03) SKIN TEARS pramipexole Allergy (Severe, Verified 03/04/23 11:03) Diarrhea adalimumab [From Humira] Allergy (Intermediate, Verified 03/04/23 11:03) Itching carisoprodol [From SOMA] Allergy (Intermediate, Verified 03/04/23 11:03) SWELLING, RASH cephalexin Allergy (Intermediate, Verified 03/04/23 11:03) Itching gabapentin Allergy (Intermediate, Verified 03/04/23 11:03) leg swelling sulfamethoxazole [From BACTRIM] Allergy (Intermediate, Verified 03/04/23 11:03) SWELLING,RASH trimethoprim [From BACTRIM] Allergy (Intermediate, Verified 03/04/23 11:03) SWELLING,RASH Do you need a note to return to daycare/school/sports/work: No HPI EST/upper back pain HPI Details Patient is a 62-year-old female history of underlying inflammatory and degenerative joint and spine disease, who comes to the walk-in clinic complaining of upper shoulder, and neck and upper back pain. She is status post near complete cervical fusion of the neck as well as right shoulder issues that she is struggling with. She has an MRI pending for the shoulder, and she will be doing physical therapy in the next few weeks. She states that she does not usually have upper back pain, but this has started over the last few days. She denies any changes in arm symptoms in relation to weakness, numbness or tingling. [facility] Medical History JOHN positive Asthma, moderate Back pain Bursitis of right shoulder Chest pain Chronic GERD Chronic pain syndrome Constipation by delayed colonic transit Degenerative disc disease Depression, major, in remission DJD (degenerative joint disease) Fibromyalgia History of COVID-19 Lipid disorder Periodic limb movement disorder Postlaminectomy syndrome of cervical region Postlaminectomy syndrome of lumbar region Pre-diabetes Right shoulder pain Sciatica, right side Sleeping difficulty Spinal stenosis Surgical History H/O colonoscopy H/O shoulder surgery H/O spinal fusion H/O: hysterectomy History of esophagogastroduodenoscopy (EGD) History of gastric bypass History of lumbar fusion History of sleeve gastrectomy Hx of cholecystectomy S/P placement of nerve stimulator Family History Father No problems noted. Mother No problems noted. Other Mental health disorder Social History Household Members: Other Household Members Other:: son Housing: House Are you a primary lawn care professional to a significant other at home: No Do you presently have visiting nurse or other home services: No Alcohol intake: current Alcohol intake frequency: holidays/special occasions only Patient Tobacco Use Status: Former Tobacco user Quit Date: 10 years ago Tobacco use type: Cigarette Years Smoked: 30 e-Cigarette/Vaping Use: Never Used Substance Use Type: Marijuana service: No Current occupational status: disabled Current occupation: right handed Cognitive needs: No Hearing needs: No Vision needs: Yes Review of Systems Const All systems reviewed & are unremarkable except as noted in HPI and below Physical Exam Vital Signs: Last Vital Signs Temp 97.8 F 03/04/23 11:01 Pulse 65 03/04/23 11:01 BP 118/62 03/04/23 11:01 Pulse Ox 96 03/04/23 11:01 Back/Spine/Pelvis Cervical Spine: cervical muscular tenderness and other (Surgical scar from cervical fusion, limited range of motion) Extrem Other: Tenderness and firm on palpation to bilateral trapezius muscles Assessment & Plan Assessment & Plan (1) Trapezius strain: Code(s): S46.819A - Strain of other muscles, fascia and tendons at shoulder and upper arm level, unspecified arm, initial encounter Plan: Patient appears to have type bilateral trapezius and lower cervical as well as thoracic paraspinal strains. She has underlying inflammatory degenerative disease, is status post near complete cervical fusion of the neck as well as right shoulder issues that she is struggling with. She might have been compensating with the pain and this can be associated with it. She has an MRI pending for the shoulder, and she will be doing physical therapy in the next few weeks. I told her to relate to them how her symptoms are now extending into the upper shoulder areas and the upper back. Hopefully with physical therapy she can strengthen herself and alleviate some of these symptoms. I wrote her for Flexeril and we discussed heat massage and stretching. She will follow up if symptoms persist or worsen Medications: New cyclobenzaprine 10 mg PO TID PRN 14 tabs 0RF muscle spasm Coding Level of Care Code Est Pt Level 4 (52459) Diagnoses Trapezius strain S46.819A
== END 2023-03-04 11:39 | disposition home or self-care (01) ==
PROVIDERS: PCP Internal Medicine; Visit Provider Physician Assistant Medical
DX: S46.819A Strain of other muscles, fascia and tendons at shoulder and upper arm level, unspecified arm, initial encounter (principal)
CPT/HCPCS: 99214

== ENCOUNTER 2023-03-16 14:01 | Outpatient (REF) | payer MEDICARE, MEDICAID, SELFPAY ==
--- NOTE | ~2023-03-16 | MR_ITS ---
EXAMINATION: MR SHOULDER WITHOUT CONTRAST, RIGHT CLINICAL INFORMATION: Unspecified disorder of synovium and tendon, right shoulder. Patient reports fall November 2022, right shoulder pain, decreased range of motion. COMPARISON: X-ray right shoulder 02/15/2023, MRI 12/15/2020. TECHNIQUE: MRI of the shoulder without contrast was performed on a high-field scanner. FINDINGS: ROTATOR CUFF: There are foci of susceptibility artifact related to prior surgery, along the superior, anterior and lateral aspect of the shoulder. Moderate supraspinatus tendinosis, mild articular surface fraying in the anterior fibers. No measurable tendon tear or retraction. Tcdz-at-kxsyirkb infraspinatus tendinosis. Teres minor is intact. Mild subscapularis tendinosis, articular surface fraying. No muscle atrophy or fatty infiltration. BICEPS: Slightly thin caliber of the long head biceps tendon as it courses in the bicipital groove. The proximal intra-articular portion of the tendon is not clearly seen. Question prior biceps tendon surgery. CORACOACROMIAL ARCH: The undersurface of the acromion is curved with no subacromial spur. There appear be postsurgical changes at the acromioclavicular joint, with multiple foci of susceptibility artifact present in this region. No significant fluid in the subacromial-subdeltoid space. LABRUM/CAPSULE: Small caliber of the superior labrum, with mild free edge fraying. Degeneration and small caliber of the posterior labrum. No displaced labral tear is seen. GLENOHUMERAL JOINT/MARROW: Mild-moderate glenohumeral joint arthritis, with inferior humeral head spur, small glenoid spur, patchy foci of humeral head cartilage heterogeneity, thinning and fissuring. No acute fracture. Small-moderate joint effusion. There are intermediate/low-signal foci within the joint space, including the axillary pouch, which could reflect synovitis/debris/loose bodies. MR/MR shoulder RT wo con IMPRESSION: 1. Moderate supraspinatus tendinosis, mild articular surface fraying in the anterior fibers. No measurable tendon tear or retraction. 2. Zosu-pu-dnnyoimn infraspinatus tendinosis. Mild subscapularis tendinosis, with articular surface fraying. 3. Slightly thin caliber of the long head biceps tendon as it courses in the bicipital groove. The proximal intra-articular portion of the tendon is not clearly seen. Question prior biceps tendon surgery. Correlate with surgical history. 4. Superior labral small caliber, mild free edge fraying. Posterior labral degeneration. 5. Atlr-qr-kbvhjqoa glenohumeral joint arthritis. Small to moderate effusion. Intermediate/low-signal foci within the joint space, could reflect synovitis/debris/loose bodies.
== END 2023-03-16 14:02 | disposition home or self-care (01) ==
LOC: HO.MRI 14:01
PROVIDERS: PCP Internal Medicine; Visit Provider Orthopaedic Surgery
DX: M67.911 Unspecified disorder of synovium and tendon, right shoulder (principal)
CPT/HCPCS: 73221

== ENCOUNTER 2023-03-30 07:35 | Outpatient (REF) | payer MEDICARE, MEDICAID, SELFPAY ==
--- NOTE | ~2023-03-30 | XR_ITS ---
EXAMINATION: XR KNEE, RIGHT XR KNEE AP STANDING CLINICAL INFORMATION: Pain. COMPARISON: None available. TECHNIQUE: AP and lateral views of the right knee. AP bilateral standing view of the knees was obtained. FINDINGS: Prosthetic components of the right total knee arthroplasty are appropriately aligned without periprosthetic fracture or abnormal lucency. No component migration. No joint effusion. There is mild to moderate narrowing of the left medial joint space compartment, and lateral joint space compartment is well-maintained. There is peripheral osteophyte formation of the lateral medial joint space compartments. There is a mild left knee varus configuration. XR/XR knee standing BI IMPRESSION: 1. Appropriate alignment of the right total knee arthroplasty without evidence of complications. 2. There is mild to moderate osteoarthritic change of the medial joint space compartment of the left knee, and mild osteoarthritic change is seen of the lateral joint space compartment. 3. There is a mild varus configuration of the left knee.
--- NOTE | ~2023-03-30 | XR_ITS ---
EXAMINATION: XR KNEE, RIGHT XR KNEE AP STANDING CLINICAL INFORMATION: Pain. COMPARISON: None available. TECHNIQUE: AP and lateral views of the right knee. AP bilateral standing view of the knees was obtained. FINDINGS: Prosthetic components of the right total knee arthroplasty are appropriately aligned without periprosthetic fracture or abnormal lucency. No component migration. No joint effusion. There is mild to moderate narrowing of the left medial joint space compartment, and lateral joint space compartment is well-maintained. There is peripheral osteophyte formation of the lateral medial joint space compartments. There is a mild left knee varus configuration. XR/XR knee RT 2V IMPRESSION: 1. Appropriate alignment of the right total knee arthroplasty without evidence of complications. 2. There is mild to moderate osteoarthritic change of the medial joint space compartment of the left knee, and mild osteoarthritic change is seen of the lateral joint space compartment. 3. There is a mild varus configuration of the left knee.
== END 2023-03-30 07:36 | disposition home or self-care (01) ==
LOC: HO.HOSX 07:35
PROVIDERS: Visit Provider Orthopaedic Surgery
DX: M75.41 Impingement syndrome of right shoulder (principal); M75.81 Other shoulder lesions, right shoulder; Z96.651 Presence of right artificial knee joint
CPT/HCPCS: 73560; 73565; 99212

== ENCOUNTER 2023-03-30 08:53 | Outpatient (AMB) | payer MEDICARE, MEDICAID, SELFPAY ==
--- NOTE | 2023-03-30 09:15 | MHC.OFFVIS ---
Intake Intake Visit Reasons: OV - RT TKA 06/28/22 Intake Note: Kaylah is a 62 year old female who presents today for a follow up appointment of her right knee s/p Right TKA 06/28/22. At her last visit she was struggling with effusion, instructed to use ice application. She reports that she has been using the ice application but she is still struggling with swelling. She also notes that she is struggling with her balance, whe she leans over or stands up she looses her balance. We talked about possibly following with PCP to discuss these concerns. Allergies adhesive tape [ADHESIVE TAPE] Allergy (Severe, Verified 03/04/23 11:03) SKIN TEARS pramipexole Allergy (Severe, Verified 03/04/23 11:03) Diarrhea adalimumab [From Humira] Allergy (Intermediate, Verified 03/04/23 11:03) Itching carisoprodol [From SOMA] Allergy (Intermediate, Verified 03/04/23 11:03) SWELLING, RASH cephalexin Allergy (Intermediate, Verified 03/04/23 11:03) Itching gabapentin Allergy (Intermediate, Verified 03/04/23 11:03) leg swelling sulfamethoxazole [From BACTRIM] Allergy (Intermediate, Verified 03/04/23 11:03) SWELLING,RASH trimethoprim [From BACTRIM] Allergy (Intermediate, Verified 03/04/23 11:03) SWELLING,RASH HPI OV - RT TKA 06/28/22 HPI Details Kaylah is a 62 year old woman who presents for an MRI review of her right shoulder impingement. She continues to complain of pain with daily activity, worse with overhead & behind-back activity, and at night. She has been attending PT but says has not been particularly helpful. She has a hx of right shoulder with me in 2020 including labral debridement & biceps tenotomy. Her pain has been present since her fall in ~10/2022. She is ~9 months S/P right TKA, with effusion. She says her knee continues to feel unstable and be swollen after activity. She says she has some worse pain at night, which wakes her up. She has been trying to work on strengthening and taking Ibuprofen. She has been using ice to help with her swelling and has been attending PT for strengthening She says she continues to have difficulty with her balance when standing from a seated position. She also reports feeling bugs crawling on her skin. She says this happens all over but she primarily noticed it on her legs. [facility] Medical History JOHN positive Asthma, moderate Back pain Bursitis of right shoulder Chest pain Chronic GERD Chronic pain syndrome Constipation by delayed colonic transit Degenerative disc disease Depression, major, in remission DJD (degenerative joint disease) Fibromyalgia History of COVID-19 Lipid disorder Periodic limb movement disorder Postlaminectomy syndrome of cervical region Postlaminectomy syndrome of lumbar region Pre-diabetes Right shoulder pain Sciatica, right side Sleeping difficulty Spinal stenosis Surgical History H/O colonoscopy H/O shoulder surgery H/O spinal fusion H/O: hysterectomy History of esophagogastroduodenoscopy (EGD) History of gastric bypass History of lumbar fusion History of sleeve gastrectomy Hx of cholecystectomy S/P placement of nerve stimulator Family History Father No problems noted. Mother No problems noted. Other Mental health disorder Social History Household Members: Other Household Members Other:: son Housing: House Are you a primary skin care consultant to a significant other at home: No Do you presently have visiting nurse or other home services: No Alcohol intake: current Alcohol intake frequency: holidays/special occasions only Patient Tobacco Use Status: Former Tobacco user Quit Date: 10 years ago Tobacco use type: Cigarette Years Smoked: 30 e-Cigarette/Vaping Use: Never Used Substance Use Type: Marijuana service: No Current occupational status: disabled Current occupation: right handed Cognitive needs: No Hearing needs: No Vision needs: Yes Review of Systems Const All systems reviewed & are unremarkable except as noted in HPI and below Physical Exam Const General: no acute distress and alert Orientation/consciousness: patient oriented x3 HEENT Head: Yes normocephalic and Yes atraumatic Eyes EOM: EOMs intact bilaterally Resp Effort & Inspection: normal respiratory effort and able to speak in complete sentences Cardio Jugular venous distension: no JVD Skin General skin exam: turgor normal Rashes: no rashes Neuro General: patient oriented x3 Extrem Other: Right Shoulder: Full ROM Mildly + H&N Right Knee: 0-130 degrees ROM well-healed No effusion Psych Appearance: grossly normal Affect: normal affect Attitude: cooperative Results Reviewed Results Reviewed: I personally reviewed relevant radiographs & MR images 1. Moderate supraspinatus tendinosis, mild articular surface fraying in the anterior fibers. No measurable tendon tear or retraction. 2. Dpjg-nd-tywwgmou infraspinatus tendinosis. Mild subscapularis tendinosis, with articular surface fraying. 3. Slightly thin caliber of the long head biceps tendon as it courses in the bicipital groove. The proximal intra-articular portion of the tendon is not clearly seen. Question prior biceps tendon surgery. Correlate with surgical history. 4. Superior labral small caliber, mild free edge fraying. Posterior labral degeneration. 5. Uluc-ww-lzxqicay glenohumeral joint arthritis. Small to moderate effusion. Intermediate/low-signal foci within the joint space, could reflect synovitis/debris/loose bodies. Mild to moderate degenerative changes of the shoulder. I personally reviewed relevant radiographs. Right total knee arthroplasty in expected post operative position with no hardware complications or evidence of loosening Assessment & Plan Assessment & Plan (1) Impingement syndrome of right shoulder: Code(s): M75.41 - Impingement syndrome of right shoulder Plan: This is a 62 year old woman with right shoulder impingement. This has been present since a fall in ~10/2022, and she found no relief from her injection on 02/15/23 with JEZ Carrington. She has pain with daily activity, worse with overhead & behind back activities, and at night, and her symptoms have not improved with PT. I discussed her diagnosis and treatment options. She declined a GH joint injection today. I recommend she continue with PT and activity as tolerated, being mindful to not push through pain. She will follow up in 6 months, sooner prn. (2) Status post total knee replacement, right: Code(s): Z96.651 - Presence of right artificial knee joint Plan: S/P right TKA, DOS: 06/28/22, with ongoing effusion. She has good ROM, but continues to have pain with daily activity, that also wakes her at night. She has a Hx of falls due to her knee buckling. I recommend she continue with PT for strengthening and ice for her swelling. She can follow up prn. (3) Rotator cuff tendonitis: Code(s): M75.80 - Other shoulder lesions, unspecified shoulder Qualifiers: Laterality: right Qualified Code(s): M75.81 - Other shoulder lesions, right shoulder Plan Scribed for López Wills MD by Speedy Guzman, medical science liaison, on 03/30/23 at 9:35 AM, EST. Orders: Orders XR knee standing BI 03/30/23 M25.569 - Pain in unspecified knee XR knee RT 2V 03/30/23 M25.569 - Pain in unspecified knee Coding Level of Care Code Est Pt Level 4 (69398) Diagnoses Impingement syndrome of right shoulder M75.41 Status post total knee replacement, right Z96.651 Tendinitis of right rotator cuff M75.81 Laterality: right
== END 2023-03-30 09:37 | disposition home or self-care (01) ==
PROVIDERS: PCP Internal Medicine; Visit Provider Orthopaedic Surgery
DX: M75.41 Impingement syndrome of right shoulder (principal); M75.81 Other shoulder lesions, right shoulder; Z96.651 Presence of right artificial knee joint
CPT/HCPCS: 99214

== ENCOUNTER 2023-04-14 08:28 | Outpatient (AMB) | payer MEDICARE, MEDICAID, SELFPAY ==
[2023-04-14 08:30] VITALS: BP 108/48; PULSE 90; O2SAT 97; BMI 34.9
--- NOTE | 2023-04-14 08:30 | A.OFFPC_ITS ---
Vital Signs 04/14/23 08:30 Height 5 ft 4 in Weight 203 lb 6 oz BMI 34.9 BP 108/48 L Blood Pressure Location Rt brachial Position Sitting Pulse 90 Pulse Source Pulse Oximeter Pulse Oximetry (%) 97 Oxygen Delivery Method Room Air Intake Visit Reasons: nerve pain Allergies adhesive tape [ADHESIVE TAPE] Allergy (Severe, Verified 04/14/23 08:31) SKIN TEARS pramipexole Allergy (Severe, Verified 04/14/23 08:31) Diarrhea adalimumab [From Humira] Allergy (Intermediate, Verified 04/14/23 08:31) Itching carisoprodol [From SOMA] Allergy (Intermediate, Verified 04/14/23 08:31) SWELLING, RASH cephalexin Allergy (Intermediate, Verified 04/14/23 08:31) Itching gabapentin Allergy (Intermediate, Verified 04/14/23 08:31) leg swelling sulfamethoxazole [From BACTRIM] Allergy (Intermediate, Verified 04/14/23 08:31) SWELLING,RASH trimethoprim [From BACTRIM] Allergy (Intermediate, Verified 04/14/23 08:31) SWELLING,RASH Medication List - Last Reconciled 04/14/23 by Amaya Harris MD acetaminophen 650 mg (2 x 325 mg) PO Q6H PRN 30 days albuterol sulfate 90 mcg/actuation 2 puffs inhalation Q6H PRN aspirin 325 mg PO BID 6 weeks celecoxib (Celebrex) 200 mg PO BID 30 days cholecalciferol (vitamin D3) 50 mcg PO DAILY 90 days clonazepam 1 mg PO BEDTIME 90 days cyclobenzaprine 10 mg PO TID PRN duloxetine 60 mg PO DAILY etanercept (Enbrel Mini) mg subcut fluticasone propion-salmeterol 113-14 mcg/actuation 1 inh inhalation BID ibuprofen 600 mg PO Q8H PRN omeprazole 20 mg PO BID PRN quetiapine (Seroquel) 50 mg (2 x 25 mg) PO BEDTIME 90 days simvastatin 40 mg PO BEDTIME 90 days tizanidine 2 mg PO Q8H 7 days walker Folding Front wheeled walker Tobacco use date assessed: 04/14/23 Dental Screening Dental Screen Date: 04/14/23 Did you have a dental visit in the last 12 months?: No Did you have a dental problem in the last 6 months where you did not have access to dental care?: No Was dental information given to patient?: Patient has dentist HPI nerve pain HPI Details Patient is 62-year-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 Post fusion changes L5-S1. Hardware i ntact. No osteolysis. 2. Mild degenerative disc changes L1-L2. 3. Borderline spondylolisthesis L4-L5 wi th flexion. This normalizes in neutral position and extension. No retrolisthesis. Patient was doing well until recently her pain started acting up again radiating to left leg with paresthesias in her feet. She is requesting assistance and another referral to pain management. Which I have placed for her I have encouraged patient to call and book the appointment and we will also try to get the appointment as soon as possible. Meanwhile I have sent Percocet 30 tablets she may take 1 at night as needed. She is now seeing a psychiatrist as well All her depression medications are through them. She had only 1 visit so far. Patient is on duloxetine 60 mg daily Seroquel 50 mg at bedtime And clonazepam. 1 mg at bedtime Medication interaction discussed with the patient clonazepam and Seroquel with interact with Percocet and cause more drowsy and that can be a problem. There is a risk of fall and respiratory depression. Patient is aware of risks and side effects. [facility] Medical History History of COVID-19 Chest pain JOHN positive Chronic pain syndrome Postlaminectomy syndrome of lumbar region Postlaminectomy syndrome of cervical region Chronic GERD Depression, major, in remission Periodic limb movement disorder Sleeping difficulty Sciatica, right side Asthma, moderate Constipation by delayed colonic transit Pre-diabetes DJD (degenerative joint disease) Lipid disorder Bursitis of right shoulder Right shoulder pain Spinal stenosis Back pain Fibromyalgia Degenerative disc disease Surgical History History of lumbar fusion S/P placement of nerve stimulator History of sleeve gastrectomy History of esophagogastroduodenoscopy (EGD) H/O colonoscopy History of gastric bypass Hx of cholecystectomy H/O: hysterectomy H/O spinal fusion H/O shoulder surgery Family History Father No problems noted. Mother No problems noted. Other Mental health disorder Social History Household Members: Other Household Members Other:: son Housing: House Are you a primary rn home care to a significant other at home: No Do you presently have visiting nurse or other home services: No Alcohol intake: current Alcohol intake frequency: holidays/special occasions only Patient Tobacco Use Status: Former Tobacco user Quit Date: 10 years ago Tobacco use type: Cigarette Years Smoked: 30 e-Cigarette/Vaping Use: Never Used Substance Use Type: Marijuana service: No Current occupational status: disabled Current occupation: right handed Cognitive needs: No Hearing needs: No Vision needs: Yes Questionnaire Thrive Questionnaire Date Thrive assessed: 08/19/22 AUDIT C Alcohol Use Questionnaire (AUDIT-C) 1. How often do you have a drink containing alcohol?: Monthly or less 2. How many drinks containing alcohol do you have on a typical day when you are drinking?: 1 or 2 3. How often do you have six or more drinks on one occasion?: Never Total Score: 1 Score Reviewed/Action Taken: Yes CATARINA-7 AMB Questionnaire CATARINA-7 Date CATARINA - 7 assessed: 08/19/22 Source: Developed by Drs. Andrew Lamb, Julia Olivas, Alfonso Silva and colleagues, with an educational elvia from [employer]. Review of Systems Const Denies chills and Denies fever(s) ENT Denies epistaxis and Denies nasal discharge Card Denies chest pain Resp Denies chest congestion, Denies cough and Denies hemoptysis GI Denies diarrhea and Denies nausea Skin/Breast Denies rash Neuro Reports no additional complaints Psych Reports no additional complaints Endo Reports no additional complaints Physical exam (Primary Care) Vital Signs: Last Vital Signs Pulse 90 04/14/23 08:30 BP 108/48 L 04/14/23 08:30 Pulse Ox 97 04/14/23 08:30 Oxygen Delivery Method Room Air 04/14/23 08:30 BMI result Body Mass Index 34.9 Tobacco/Smoking Status: Tobacco use Status Tobacco use date assessed 04/14/23 04/14/23 08:36 Patient Tobacco Use Status Former Tobacco user 04/14/23 08:36 Tobacco use type Cigarette 04/14/23 08:36 e-Cigarette/Vaping Use Never Used 04/14/23 08:36 Thrive Assessment: Date of Thrive Assessment Date Thrive assessed 08/19/22 04/14/23 08:36 Const General: cooperative, comfortable and no acute distress Orientation/consciousness: patient oriented x3 HENMT Head: Yes normocephalic Eyes General: appearance normal, both eyes and all related structures Neck Neck: Yes supple Resp Effort & Inspection: normal respiratory effort, no cough and no stridor Cardio Rhythm: regular rhythm Heart sounds: S1 normal heart sound present and S2 normal heart sound present Skin General skin exam: turgor normal Neuro Other: Straight leg positive left side, patient seems to be uncomfortable sitting leaning on her 1 side. 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 Post fusion changes L5-S1. Hardware intact. No osteolysis. 2. Mild degenerative disc changes L1-L2. 3. Borderline spondylolisthesis L4-L5 with flexion. This normalizes in neutral position and extension. No retrolisthesis. Patient was doing well until recently her pain started acting up again radiating to left leg with paresthesias in her feet. She is requesting assistance and another referral to pain management. Which I have placed for her I have encouraged patient to call and book the appointment and we will also try to get the appointment as soon as possible. Meanwhile I have sent Percocet 30 tablets she may take 1 at night as needed. She is now seeing a psychiatrist as well All her depression medications are through them. She had only 1 visit so far. Patient is on duloxetine 60 mg daily Seroquel 50 mg at bedtime And clonazepam. 1 mg at bedtime Medication interaction discussed with the patient clonazepam and Seroquel with interact with Percocet and cause more drowsy and that can be a problem. There is a risk of fall and respiratory depression. Patient is aware of risks and side effects. Orders: Referrals Pain Management Referral M96.1 - Postlaminectomy syndrome, not elsewhere classified Medications: New oxycodone-acetaminophen 5-325 mg (Percocet) Partial Fill upon patient request. 1 tab PO Q8H 21 tabs 0RF pain 7 days Coding Level of Care Code Est Pt Level 4 (58367) Diagnoses Postlaminectomy syndrome of lumbar region M96.1 Chronic pain syndrome G89.4 Depression, major, in remission F32.5 Sleeping difficulty G47.9
== END 2023-04-14 09:50 | disposition home or self-care (01) ==
PROVIDERS: PCP Internal Medicine; Visit Provider Internal Medicine
DX: M96.1 Postlaminectomy syndrome, not elsewhere classified (principal); G89.4 Chronic pain syndrome; F32.5 Major depressive disorder, single episode, in full remission; G47.9 Sleep disorder, unspecified
CPT/HCPCS: 99214

== ENCOUNTER 2023-04-17 09:52 | Outpatient (AMB) | payer MEDICARE, MEDICAID, SELFPAY ==
--- NOTE | 2023-04-17 09:53 | A.OFFVIS_ITS ---
Intake Vital Signs 04/17/23 09:58 Height 5 ft 4 in Weight 203 lb BMI 34.8 BP 118/67 Blood Pressure Location Rt brachial Position Sitting Pulse 95 Pulse Source Pulse Oximeter Pulse Oximetry (%) 97 Oxygen Delivery Method Room Air Intake Visit Reasons: LEFT SIDED SCIATICA PAIN Intake Note: Pain today 03/02. Residential Service Technician Required: No Accompanied by: Self / Same As Patient Allergies adhesive tape [ADHESIVE TAPE] Allergy (Severe, Verified 04/17/23 09:57) SKIN TEARS pramipexole Allergy (Severe, Verified 04/17/23 09:57) Diarrhea adalimumab [From Humira] Allergy (Intermediate, Verified 04/17/23 09:57) Itching carisoprodol [From SOMA] Allergy (Intermediate, Verified 04/17/23 09:57) SWELLING, RASH cephalexin Allergy (Intermediate, Verified 04/17/23 09:57) Itching gabapentin Allergy (Intermediate, Verified 04/17/23 09:57) leg swelling sulfamethoxazole [From BACTRIM] Allergy (Intermediate, Verified 04/17/23 09:57) SWELLING,RASH trimethoprim [From BACTRIM] Allergy (Intermediate, Verified 04/17/23 09:57) SWELLING,RASH HPI HPI Comments History of Present Illness Details Patient presents today for follow up for left sided sciatica pain. Patient reports frequent falls for the past year. She had right TKA in June 2022 and injuredher left knee, shoulders and back in January 2023 when [facility] review. Patient recently seen her PCP for back pain and was prescibed Percocet with minimal to moderate pain relief. She also takes NSAIDs, Asper cream roll-on, ice and heat therapy with partial results. Walking, weight bearing, bending, climbing stairs, cold weather, getting out of car or shower increases her pain. Patient reports NEVRO SCS device has been working well for her post laminectomy syndrome but not covering left leg pain. She reports back pain radiating into her left buttock, left lateral hip and left groin. I could not reproduce pain with SLR testing today. However, she has pain with provocative testing for sacroiliac joint and left hip with groin pain. There is no tenderness along her battery pocket or incisional lines in her back. She also reports mid back pain. We will proceed with updating her back imaging, evaluate SCS status and assess degree of arthritis for left hip. She is interested to receive therapeutic injection to alleviate her pain. Denies any fever, weight changes, bladder or bowel dysfunction, or saddle anesthesia. PRIOR 08/25/22 Dr. Gloria: Kaylah is very pleasant 62 years old female who is my office complaining on pain in the posterior right buttock as well as anterior thigh on the right. She is well-known in this clinic she was treated for low back pain in the past with Nevro spinal cord stimulator. According to the patient she had a fall 3 weeks ago after which the symptoms appeared. She was not sent to any x-rays. Today on physical exam attention was attracted to the fact that patient has discomfort in the projection of the ischial tuberosity as well as pain aggravation in the groin with rotation of the right hip. I will send this patient for right hip x- ray. If there are any arthritic changes I will schedule her for intra-articular right hip steroid injection. PRIOR 02/07/22 Dr. Gloria: Kaylah is 61 years old female who presents in my office today status post 4 months of the implantation of spinal cord stimulator Nevro. She received the device to be treated for symptoms of postlaminectomy syndrome. She reports excellent pain relief better mobility better activities of daily living better social interactions. She is very happy with her machine. However she reports that at the side of the battery she feels some discomfort, she reports that battery became loose. She became more active and she lost some weight. She also reports that when she is walking through the narrow drawers she sometimes he the battery on the doors and it aunts to her discomfort. She does not report difficulty charging the device. Unlikely therefore the device is flipped. I discussed the situation with her today. We can potentially relocated the battery into the loin of her liking from the buttock. But that would require 3 incisions to complete for me. Alternatively she can try some topicals Aspercreme with lidocaine and salicylate. I also recommend her to purchase some bedsore protection pads in the pharmacy [id number] and use it for protection of the device from external trauma. We decided that she will see me in 1 month. [facility] Medical History History of COVID-19 Chest pain JOHN positive Chronic pain syndrome Postlaminectomy syndrome of lumbar region Postlaminectomy syndrome of cervical region Chronic GERD Depression, major, in remission Periodic limb movement disorder Sleeping difficulty Sciatica, right side Asthma, moderate Constipation by delayed colonic transit Pre-diabetes DJD (degenerative joint disease) Lipid disorder Bursitis of right shoulder Right shoulder pain Spinal stenosis Back pain Fibromyalgia Degenerative disc disease Surgical History History of lumbar fusion S/P placement of nerve stimulator History of sleeve gastrectomy History of esophagogastroduodenoscopy (EGD) H/O colonoscopy History of gastric bypass Hx of cholecystectomy H/O: hysterectomy H/O spinal fusion H/O shoulder surgery Family History Father No problems noted. Mother No problems noted. Other Mental health disorder Social History Household Members: Other Household Members Other:: son Housing: House Are you a primary healthcare consulting manager to a significant other at home: No Do you presently have visiting nurse or other home services: No Alcohol intake: current Alcohol intake frequency: holidays/special occasions only Patient Tobacco Use Status: Former Tobacco user Quit Date: 10 years ago Tobacco use type: Cigarette Years Smoked: 30 e-Cigarette/Vaping Use: Never Used Substance Use Type: Marijuana service: No Current occupational status: disabled Current occupation: right handed Cognitive needs: No Hearing needs: No Vision needs: Yes Review of Systems Const All systems reviewed & are unremarkable except as noted in HPI and below Physical Exam Vital Signs: Last Vital Signs Pulse 95 04/17/23 09:58 BP 118/67 04/17/23 09:58 Pulse Ox 97 04/17/23 09:58 Oxygen Delivery Method Room Air 04/17/23 09:58 BMI result Body Mass Index 34.8 General: Appears afebrile. Alert and oriented. Mood and affect appropriate. Follows and participates in conversation appropriately. Respiratory effort is unlabored. No cough. Able to transition from sit to stand unassisted. Ambulates with bilaterally normal heel strike and toe off. HEENT Head: Yes normal to inspection, Yes normocephalic, No Hayes's sign, No Temporal artery tenderness present and No periorbital ecchymosis General nose exam: No nasal discharge present Teeth and gingiva: fair dentition Back/Spine/Pelvis Other: Lumbar flexion and extension reproduces low back pain with radiation into left lateral hip and left groin. Demonstrates 5/5 strength of quadriceps bilaterally as well as flexion/dorsiflexion of bilateral feet against resistance. 2+ pedal pulses bilaterally. Seated and supine straight leg rise with dorsiflexion negative bilaterally. +1 patellar and achilles reflexes bilaterally. Facet loading test positive bilaterally. Ellis sign, Oc?s, Gaenslen, Pelvic compression and Stinchfield tests are positive on the left, reproduce left groin and left buttock pain. Moderate left groin pain with I/E hip rotations on the left. Significant paraspinals tenderness mid and lower back. Valsalva maneuver negative. Mild TTP at GTB bilaterally. Cervical Spine: loss of normal cervical lordosis, cervical muscular tenderness, Cervical spine scars present and No Cervical spine tenderness Thoracic/Lumbar Spine: thoracic and lumbar spine normal to inspection, Thoracic/lumbar spine scar(s), Lasegue's sign negative, straight leg raise negative bilaterally, pain with thoraco-lumbar ROM, paraspinal muscle tenderness, thoraco-lumbar ROM limited, No thoracic spinal tenderness and lumbar spinal tenderness at L5 Pelvis: buttock tenderness on the left Sacroiliac joints: on the right nontender and on the left tender to palpation Results Reviewed Results Reviewed: XR HIP, RIGHT 08/25/22 FINDINGS: Right hip joint: Joint space remains normal. No fracture or bone lesion. Small pulmonary focus of calcific or ossific density just posterior to the trochanteric region unchanged compared to prior examinations. Incidental note made of a electronic device with wire overlying the right pelvis is not seen previously. IMPRESSION: 1. No evidence of osteoarthritis of the right hip. 2. Small focus of calcific or ossific density just posterior to the trochanteric region unchanged compared to prior examinations. This could reflect calcific tendinitis or tendinosis. XR/XR sacroiliac joint min 3V 01/18/21 IMPRESSION: No significant sacroiliac joint abnormality appreciated. Status post transpedicular fusion L5-S1. Assessment & Plan Assessment & Plan (1) Left hip pain: Code(s): M25.552 - Pain in left hip (2) S/P insertion of spinal cord stimulator: Code(s): Z96.89 - Presence of other specified functional implants (3) Postlaminectomy syndrome of lumbar region: Code(s): M96.1 - Postlaminectomy syndrome, not elsewhere classified (4) Chronic pain syndrome: Code(s): G89.4 - Chronic pain syndrome (5) Frequent falls: Code(s): R29.6 - Repeated falls (6) Sacroiliac joint pain: Code(s): M53.3 - Sacrococcygeal disorders, not elsewhere classified Plan We will proceed with updating her back imaging, evaluate SCS status and assess degree of arthritis for left hip. Patient is interested to receive therapeutic injection to alleviate her pain. SLR testing was negative today. Pain consistent with sacroiliac joint and left hip pain. Continue ice/heat therapy, activity modifications, NSAIDs, pain medication for severe pain only. All questions and concerns have been answered and patient agreed with the plan. Follow up for xray results and sooner as needed. Orders: Orders XR thoracic spine 3V Today G89.4 - Chronic pain syndrome, M96.1 - Postlaminectomy syndrome, not elsewhere classified XR lumbar spine 2-3V Today G89.4 - Chronic pain syndrome, M96.1 - Postlaminectomy syndrome, not elsewhere classified, Z96.89 - Presence of other specified functional implants XR hip LT w PEL1V Today M25.552 - Pain in left hip Medications: Discontinued tizanidine Discontinued Reason: Patient Completed Course 2 mg PO Q8H 7 days 21 tabs 0RF muscle spasticity M67.911 - Unspecified disorder of synovium and tendon, right shoulder Coding Level of Care Code Est Pt Level 4 (41490) Diagnoses Left hip pain M25.552 S/P insertion of spinal cord stimulator Z96.89 Postlaminectomy syndrome of lumbar region M96.1 Chronic pain syndrome G89.4 Frequent falls R29.6 Sacroiliac joint pain M53.3
[2023-04-17 09:58] VITALS: BP 118/67; PULSE 95; O2SAT 97; BMI 34.8
== END 2023-04-17 10:20 | disposition home or self-care (01) ==
PROVIDERS: PCP Internal Medicine; Visit Provider Nurse Practitioner Family
DX: G89.4 Chronic pain syndrome (principal); M25.552 Pain in left hip; Z96.82 Presence of neurostimulator; M96.1 Postlaminectomy syndrome, not elsewhere classified; R29.6 Repeated falls; M53.3 Sacrococcygeal disorders, not elsewhere classified
CPT/HCPCS: 99214

== ENCOUNTER 2023-04-17 09:52 | Outpatient (REF) | payer MEDICARE, MEDICAID, SELFPAY ==
--- NOTE | ~2023-04-17 | XR_ITS ---
EXAMINATION: XR THORACIC SPINE, 3 VIEWS XR LUMBAR SPINE, 3 VIEWS CLINICAL INFORMATION: Postlaminectomy syndrome COMPARISON: Lumbar spine radiograph from 05/11/2020 TECHNIQUE: 3 views of the thoracic spine 3 views of the lumbar spine FINDINGS: 5 nonrib-bearing lumbar-type vertebral bodies with diminutive T12 ribs. No acute visible fracture or dislocation. Status post posterior spinal fusion of L5-S1 with bilateral transpedicular screws and interconnecting rods. Status post anterior and posterior fusion of C3-C5. Spinal hardware is grossly intact. Spinal stimulator overlying the right iliac fossa with its leads coursing cranially entering at the level of L1-L2 and terminating at T9. Multilevel degenerative changes with disc space narrowing, osteophyte formation, and facet arthropathy. Vertebral body heights and disc spaces are maintained. Posterior elements are intact. Paraspinal soft tissues are unremarkable. Visualized bowel gas is unremarkable. XR/XR lumbar spine 2-3V IMPRESSION: 1. No acute visible fracture or dislocation. 2. Status post posterior spinal fusion of L5-S1 with bilateral transpedicular screws and interconnecting rods. 3. Status post anterior and posterior fusion of C3-C5. 4. Spinal stimulator overlying the right iliac fossa with its leads coursing cranially entering at the level of L1-L2 and terminating at T9. 5. Multilevel degenerative changes.
--- NOTE | ~2023-04-17 | XR_ITS ---
EXAMINATION: XR THORACIC SPINE, 3 VIEWS XR LUMBAR SPINE, 3 VIEWS CLINICAL INFORMATION: Postlaminectomy syndrome COMPARISON: Lumbar spine radiograph from 05/11/2020 TECHNIQUE: 3 views of the thoracic spine 3 views of the lumbar spine FINDINGS: 5 nonrib-bearing lumbar-type vertebral bodies with diminutive T12 ribs. No acute visible fracture or dislocation. Status post posterior spinal fusion of L5-S1 with bilateral transpedicular screws and interconnecting rods. Status post anterior and posterior fusion of C3-C5. Spinal hardware is grossly intact. Spinal stimulator overlying the right iliac fossa with its leads coursing cranially entering at the level of L1-L2 and terminating at T9. Multilevel degenerative changes with disc space narrowing, osteophyte formation, and facet arthropathy. Vertebral body heights and disc spaces are maintained. Posterior elements are intact. Paraspinal soft tissues are unremarkable. Visualized bowel gas is unremarkable. XR/XR thoracic spine 3V IMPRESSION: 1. No acute visible fracture or dislocation. 2. Status post posterior spinal fusion of L5-S1 with bilateral transpedicular screws and interconnecting rods. 3. Status post anterior and posterior fusion of C3-C5. 4. Spinal stimulator overlying the right iliac fossa with its leads coursing cranially entering at the level of L1-L2 and terminating at T9. 5. Multilevel degenerative changes.
--- NOTE | ~2023-04-17 | XR_ITS ---
EXAMINATION: XR HIP, LEFT CLINICAL INFORMATION: Pain COMPARISON: None available. TECHNIQUE: Single view the pelvis 2 views of the left hip FINDINGS: No acute visible fracture or dislocation. Degenerative arthropathy of the bilateral femoral acetabular joints with joint space narrowing and enthesopathy along the bilateral greater trochanters. Spinal stimulator overlying the right iliac fossa with its leads transmitting cranially. Lower lumbar spinal hardware redemonstrated. Joint spaces and alignment are otherwise maintained. Soft tissues are unremarkable. Pelvic phleboliths are noted. XR/XR hip LT w PEL1V IMPRESSION: 1. No acute visible fracture or dislocation. 2. Degenerative arthropathy of the bilateral femoral acetabular joints.
== END 2023-04-17 09:53 | disposition home or self-care (01) ==
LOC: HO.XRAY 09:52
PROVIDERS: PCP Internal Medicine; Visit Provider Nurse Practitioner Family
DX: M96.1 Postlaminectomy syndrome, not elsewhere classified (principal); G89.4 Chronic pain syndrome; M25.552 Pain in left hip; M54.32 Sciatica, left side; M53.3 Sacrococcygeal disorders, not elsewhere classified; R29.6 Repeated falls; Z96.89 Presence of other specified functional implants
CPT/HCPCS: 72072; 72100; 73502; 99212

== ENCOUNTER 2023-04-21 10:36 | Outpatient (AMB) | payer MEDICARE, MEDICAID, SELFPAY ==
--- NOTE | 2023-04-21 10:40 | MHC.OFFVIS ---
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 Accompanied by: Self / Same As Patient Allergies adhesive tape [ADHESIVE TAPE] Allergy (Severe, Verified 04/21/23 10:46) SKIN TEARS pramipexole Allergy (Severe, Verified 04/21/23 10:46) Diarrhea adalimumab [From Humira] Allergy (Intermediate, Verified 04/21/23 10:46) Itching carisoprodol [From SOMA] Allergy (Intermediate, Verified 04/21/23 10:46) SWELLING, RASH cephalexin Allergy (Intermediate, Verified 04/21/23 10:46) Itching gabapentin Allergy (Intermediate, Verified 04/21/23 10:46) leg swelling sulfamethoxazole [From BACTRIM] Allergy (Intermediate, Verified 04/21/23 10:46) SWELLING,RASH trimethoprim [From BACTRIM] Allergy (Intermediate, Verified 04/21/23 10:46) SWELLING,RASH HPI HPI Comments History of Present Illness Details Patient presents today to review recent thoracolumbar spine and hip imaging results and discuss interventional treatments for ongoing lateral hip and left hip pain. Denies any recent cough, cold, infection, fever or other significant changes in medical history since last office visit. Patient denies any bladder or bowel incontinence or saddle anesthesia. PRIOR: Patient presents today for follow up for left sided sciatica pain. Patient reports frequent falls for the past year. She had right TKA in June 2022 and injuredher left knee, shoulders and back in January 2023 when she fell from [facility] per EMR review. Patient recently seen her PCP for back pain and was prescibed Percocet with minimal to moderate pain relief. She also takes NSAIDs, Asper cream roll-on, ice and heat therapy with partial results. Walking, weight bearing, bending, climbing stairs, cold weather, getting out of car or shower increases her pain. Patient reports NEVRO SCS device has been working well for her post laminectomy syndrome but not covering left leg pain. She reports back pain radiating into her left buttock, left lateral hip and left groin. I could not reproduce pain with SLR testing today. However, she has pain with provocative testing for sacroiliac joint and left hip with groin pain. There is no tenderness along her battery pocket or incisional lines in her back. She also reports mid back pain. We will proceed with updating her back imaging, evaluate SCS status and assess degree of arthritis for left hip. She is interested to receive therapeutic injection to alleviate her pain. Denies any fever, weight changes, bladder or bowel dysfunction, or saddle anesthesia. PRIOR 08/25/22 Dr. Gloria: Kaylah is very pleasant 62 years old female who is my office complaining on pain in the posterior right buttock as well as anterior thigh on the right. She is well-known in this clinic she was treated for low back pain in the past with Nevro spinal cord stimulator. According to the patient she had a fall 3 weeks ago after which the symptoms appeared. She was not sent to any x-rays. Today on physical exam attention was attracted to the fact that patient has discomfort in the projection of the ischial tuberosity as well as pain aggravation in the groin with rotation of the right hip. I will send this patient for right hip x-ray. If there are any arthritic changes I will schedule her for intra-articular right hip steroid injection. PRIOR 02/07/22 Dr. Gloria: Kaylah is 61 years old female who presents in my office today status post 4 months of the implantation of spinal cord stimulator Nevro. She received the device to be treated for symptoms of postlaminectomy syndrome. She reports excellent pain relief better mobility better activities of daily living better social interactions. She is very happy with her machine. However she reports that at the side of the battery she feels some discomfort, she reports that battery became loose. She became more active and she lost some weight. She also reports that when she is walking through the narrow drawers she sometimes he the battery on the doors and it aunts to her discomfort. She does not report difficulty charging the device. Unlikely therefore the device is flipped. I discussed the situation with her today. We can potentially relocated the battery into the loin of her liking from the buttock. But that would require 3 incisions to complete for me. Alternatively she can try some topicals Aspercreme with lidocaine and salicylate. I also recommend her to purchase some bedsore protection pads in the pharmacy [id number] and use it for protection of the device from external trauma. We decided that she will see me in 1 month. [facility] Medical History History of COVID-19 Chest pain JOHN positive Chronic pain syndrome Postlaminectomy syndrome of lumbar region Postlaminectomy syndrome of cervical region Chronic GERD Depression, major, in remission Periodic limb movement disorder Sleeping difficulty Sciatica, right side Asthma, moderate Constipation by delayed colonic transit Pre-diabetes DJD (degenerative joint disease) Lipid disorder Bursitis of right shoulder Right shoulder pain Spinal stenosis Back pain Fibromyalgia Degenerative disc disease Surgical History History of lumbar fusion S/P placement of nerve stimulator History of sleeve gastrectomy History of esophagogastroduodenoscopy (EGD) H/O colonoscopy History of gastric bypass Hx of cholecystectomy H/O: hysterectomy H/O spinal fusion H/O shoulder surgery Family History Father No problems noted. Mother No problems noted. Other Mental health disorder Social History Household Members: Other Household Members Other:: son Housing: House Are you a primary care program resident to a significant other at home: No Do you presently have visiting nurse or other home services: No Alcohol intake: current Alcohol intake frequency: holidays/special occasions only Patient Tobacco Use Status: Former Tobacco user Quit Date: 10 years ago Tobacco use type: Cigarette Years Smoked: 30 e-Cigarette/Vaping Use: Never Used Substance Use Type: Marijuana service: No Current occupational status: disabled Current occupation: right handed Cognitive needs: No Hearing needs: No Vision needs: Yes Review of Systems Const All systems reviewed & are unremarkable except as noted in HPI and below Physical Exam Vital Signs: Last Vital Signs Pulse 97 04/21/23 10:45 BP 124/64 04/21/23 10:45 Pulse Ox 98 04/21/23 10:45 Oxygen Delivery Method Room Air 04/21/23 10:45 BMI result Body Mass Index 34.9 General: Appears afebrile. Alert and oriented. Mood and affect appropriate. Follows and participates in conversation appropriately. Respiratory effort is unlabored. No cough. Able to transition from sit to stand unassisted. Ambulates with bilaterally normal heel strike and toe off. HEENT General nose exam: No nasal discharge present Teeth and gingiva: fair dentition Back/Spine/Pelvis Other: Lumbar flexion and extension reproduces low back pain with radiation into left lateral hip and left groin. Seated and supine straight leg rise with dorsiflexion negative bilaterally. +1 patellar and achilles reflexes bilaterally. Facet loading test positive bilaterally. Ellis sign, Oc?s, Gaenslen, Pelvic compression and Stinchfield tests are positive on the left, reproduce left groin and left buttock pain. Moderate left groin pain with I/E hip rotations on the left. Moderate TTP at GTB bilaterally. Cervical Spine: Cervical spine scars present and No Cervical spine tenderness Thoracic/Lumbar Spine: thoracic and lumbar spine normal to inspection, Thoracic/lumbar spine scar(s), Lasegue's sign negative, straight leg raise negative bilaterally, pain with thoraco-lumbar ROM, paraspinal muscle tenderness, No thoracic spinal tenderness and lumbar spinal tenderness at L5 Pelvis: buttock tenderness on the left Sacroiliac joints: on the right nontender and on the left tender to palpation Results Reviewed Results Reviewed: XR THORACIC SPINE, 3 VIEWS XR LUMBAR SPINE, 3 VIEWS 04/17/23 CLINICAL INFORMATION: Postlaminectomy syndrome COMPARISON: Lumbar spine radiograph from 05/11/2020 FINDINGS: 5 nonrib-bearing lumbar-type vertebral bodies with diminutive T12 ribs. No acute visible fracture or dislocation. Status post posterior spinal fusion of L5-S1 with bilateral transpedicular screws and interconnecting rods. Status post anterior and posterior fusion of C3-C5. Spinal hardware is grossly intact. Spinal stimulator overlying the right iliac fossa with its leads coursing cranially entering at the level of L1-L2 and terminating at T9. Multilevel degenerative changes with disc space narrowing, osteophyte formation, and facet arthropathy. Vertebral body heights and disc spaces are maintained. Posterior elements are intact. Paraspinal soft tissues are unremarkable. Visualized bowel gas is unremarkable. IMPRESSION: 1. No acute visible fracture or dislocation. 2. Status post posterior spinal fusion of L5-S1 with bilateral transpedicular screws and interconnecting rods. 3. Status post anterior and posterior fusion of C3-C5. 4. Spinal stimulator overlying the right iliac fossa with its leads coursing cranially entering at the level of L1-L2 and terminating at T9. 5. Multilevel degenerative changes. XR HIP, LEFT 04/17/23 CLINICAL INFORMATION: Pain FINDINGS: No acute visible fracture or dislocation. Degenerative arthropathy of the bilateral femoral acetabular joints with joint space narrowing and enthesopathy along the bilateral greater trochanters. Spinal stimulator overlying the right iliac fossa with its leads transmitting cranially. Lower lumbar spinal hardware redemonstrated. Joint spaces and alignment are otherwise maintained. Soft tissues are unremarkable. Pelvic phleboliths are noted. IMPRESSION: 1. No acute visible fracture or dislocation. 2. Degenerative arthropathy of the bilateral femoral acetabular joints. XR HIP, RIGHT 08/25/22 FINDINGS: Right hip joint: Joint space remains normal. No fracture or bone lesion. Small pulmonary focus of calcific or ossific density just posterior to the trochanteric region unchanged compared to prior examinations. Incidental note made of a electronic device with wire overlying the right pelvis is not seen previously. IMPRESSION: 1. No evidence of osteoarthritis of the right hip. 2. Small focus of calcific or ossific density just posterior to the trochanteric region unchanged compared to prior examinations. This could reflect calcific tendinitis or tendinosis. XR/XR sacroiliac joint min 3V 01/18/21 IMPRESSION: No significant sacroiliac joint abnormality appreciated. Status post transpedicular fusion L5-S1. Assessment & Plan Assessment & Plan (1) Left hip pain: Code(s): M25.552 - Pain in left hip (2) Postlaminectomy syndrome of lumbar region: Code(s): M96.1 - Postlaminectomy syndrome, not elsewhere classified (3) Sacroiliac joint pain: Code(s): M53.3 - Sacrococcygeal disorders, not elsewhere classified (4) Greater trochanteric bursitis of both hips: Code(s): M70.61 - Trochanteric bursitis, right hip; M70.62 - Trochanteric bursitis, left hip Plan Thoracolumbar spine and hip imaging results were reviewed with patient and are noted above. Schedule Bilateral greater trochanteric bursae steroid injections with local and fluoroscopy. Oral Ativan prior to injections per patient's request. If no significant pain relief, will consisder Left intra-articular hip steroid injection. Expectations, risks and benefits were reviewed. Patient is aware she will be contacted to schedule this procedure. All questions were answered and the patient is in agreement of plan. Follow-up after injections and sooner as needed. Coding Level of Care Code Est Pt Level 4 (26708) Diagnoses Left hip pain M25.552 Postlaminectomy syndrome of lumbar region M96.1 Sacroiliac joint pain M53.3 Greater trochanteric bursitis of both hips M70.61; M70.62
[2023-04-21 10:45] VITALS: BP 124/64; PULSE 97; O2SAT 98; BMI 34.9
== END 2023-04-21 11:15 | disposition home or self-care (01) ==
PROVIDERS: PCP Internal Medicine; Visit Provider Nurse Practitioner Family
DX: M25.552 Pain in left hip (principal); M96.1 Postlaminectomy syndrome, not elsewhere classified; M53.3 Sacrococcygeal disorders, not elsewhere classified; M70.61 Trochanteric bursitis, right hip; M70.62 Trochanteric bursitis, left hip
CPT/HCPCS: 99214

== ENCOUNTER → 2023-04-21 10:36 | Outpatient (BNVA) | payer MEDICARE, MEDICAID, SELFPAY | PROVIDERS: PCP Internal Medicine; Visit Provider Nurse Practitioner Family | DX: M25.552 Pain in left hip (principal); M53.3 Sacrococcygeal disorders, not elsewhere classified; M96.1 Postlaminectomy syndrome, not elsewhere classified; M70.61 Trochanteric bursitis, right hip; M70.62 Trochanteric bursitis, left hip | CPT/HCPCS: 99212 ==

== ENCOUNTER 2023-05-09 07:20 | Outpatient (REF) | payer MEDICARE, MEDICAID, SELFPAY | END 2023-05-09 07:21 | disposition home or self-care (01) | LOC: CF 07:20 | PROVIDERS: Visit Provider Anesthesiology | DX: M25.552 Pain in left hip (principal); M70.61 Trochanteric bursitis, right hip; M70.62 Trochanteric bursitis, left hip; M96.1 Postlaminectomy syndrome, not elsewhere classified; M53.3 Sacrococcygeal disorders, not elsewhere classified | CPT/HCPCS: 20611; J3301 ==

== ENCOUNTER 2023-05-09 07:37 | Outpatient (AMB) | payer MEDICARE, MEDICAID, SELFPAY ==
[2023-05-09 07:53] VITALS: BP 134/78; PULSE 86; RESP 18; O2SAT 97; BMI 34.8
--- NOTE | 2023-05-09 07:53 | A.OFFVIS_ITS ---
Intake Vital Signs 05/09/23 07:53 05/09/23 09:37 Height 5 ft 4 in 5 ft 4 in Weight 203 lb 203 lb BMI 34.8 34.8 BP 134/78 128/86 Blood Pressure Location Lt brachial Lt brachial Position Sitting Sitting Respiration 18 18 Pulse 86 74 Pulse Source Pulse Oximeter Pulse Oximeter Pulse Oximetry (%) 97 95 Oxygen Delivery Method Room Air Room Air Comment Pre-op post-op Intake Visit Reasons: BILAT GREATER TROC BURSA STEROID INJ *ATIVAN PRE* Allergies adhesive tape [ADHESIVE TAPE] Allergy (Severe, Verified 05/09/23 09:38) SKIN TEARS pramipexole Allergy (Severe, Verified 05/09/23 09:38) Diarrhea adalimumab [From Humira] Allergy (Intermediate, Verified 05/09/23 09:38) Itching carisoprodol [From SOMA] Allergy (Intermediate, Verified 05/09/23 09:38) SWELLING, RASH cephalexin Allergy (Intermediate, Verified 05/09/23 09:38) Itching gabapentin Allergy (Intermediate, Verified 05/09/23 09:38) leg swelling sulfamethoxazole [From BACTRIM] Allergy (Intermediate, Verified 05/09/23 09:38) SWELLING,RASH trimethoprim [From BACTRIM] Allergy (Intermediate, Verified 05/09/23 09:38) SWELLING,RASH PFSH Medical History History of COVID-19 Chest pain JOHN positive Chronic pain syndrome Postlaminectomy syndrome of lumbar region Postlaminectomy syndrome of cervical region Chronic GERD Depression, major, in remission Periodic limb movement disorder Sleeping difficulty Sciatica, right side Asthma, moderate Constipation by delayed colonic transit Pre-diabetes DJD (degenerative joint disease) Lipid disorder Bursitis of right shoulder Right shoulder pain Spinal stenosis Back pain Fibromyalgia Degenerative disc disease Surgical History History of lumbar fusion S/P placement of nerve stimulator History of sleeve gastrectomy History of esophagogastroduodenoscopy (EGD) H/O colonoscopy History of gastric bypass Hx of cholecystectomy H/O: hysterectomy H/O spinal fusion H/O shoulder surgery Family History Father No problems noted. Mother No problems noted. Other Mental health disorder Social History Household Members: Other Household Members Other:: son Housing: House Are you a primary career and guidance counselor to a significant other at home: No Do you presently have visiting nurse or other home services: No Alcohol intake: current Alcohol intake frequency: holidays/special occasions only Patient Tobacco Use Status: Former Tobacco user Quit Date: 10 years ago Tobacco use type: Cigarette Years Smoked: 30 e-Cigarette/Vaping Use: Never Used Substance Use Type: Marijuana service: No Current occupational status: disabled Current occupation: right handed Cognitive needs: No Hearing needs: No Vision needs: Yes Physical Exam Vital Signs: Last Vital Signs Pulse 74 05/09/23 09:37 Resp 18 05/09/23 09:37 BP 128/86 05/09/23 09:37 Pulse Ox 95 05/09/23 09:37 Oxygen Delivery Method Room Air 05/09/23 09:37 BMI result Body Mass Index 34.8 Assessment & Plan Assessment & Plan (1) Left hip pain: Code(s): M25.552 - Pain in left hip (2) Postlaminectomy syndrome of lumbar region: Code(s): M96.1 - Postlaminectomy syndrome, not elsewhere classified (3) Sacroiliac joint pain: Code(s): M53.3 - Sacrococcygeal disorders, not elsewhere classified (4) Greater trochanteric bursitis of both hips: Code(s): M70.61 - Trochanteric bursitis, right hip; M70.62 - Trochanteric bursitis, left hip Plan: Bilateral trochanteric bursa injection with steroids Informed consent was explained thoroughly to the patient. All questions about benefits and risks for the procedure were answered. Patient came to the exam room and was positioned left lateral decubitus on stretcher. Time out was performed delineating name and of the patient, allergies and the nature of the procedure. The right hip area was prepped with ChloraPrep prepped and draped with sterile utility towels. Sterilily draped US probe was brought over the operating field and US picture of the trochanter was demostrated on the screen 3 mm above the trochanter the 25 gauge 1&1/5 inch needle was inserted though the skin and advanced to the right trochanteric bursa. Injection of the treatment solution of ropivacaine 8 mls mixed with kenalog 40 mg was performed into the bursa under US guidance. the needle was removed band aid was applied and the patient turned on RLD decubitus position and the procedure was repeated on the left side in the similar fashion. Upon completion of the injection patient recovered uneventfully. Plan Thoracolumbar spine and hip imaging results were reviewed with patient and are noted above. Schedule Bilateral greater trochanteric bursae steroid injections with local and fluoroscopy. Oral Ativan prior to injections per patient's request. If no significant pain relief, will consisder Left intra-articular hip steroid injection. Expectations, risks and benefits were reviewed. Patient is aware she will be contacted to schedule this procedure. All questions were answered and the patient is in agreement of plan. Follow-up after injections and sooner as needed. Orders: Orders FL guidance in treatment room Today M70.61 - Trochanteric bursitis, right hip, M70.62 - Trochanteric bursitis, left hip Coding Level of Care Code Procedure Only Diagnoses Left hip pain M25.552 Postlaminectomy syndrome of lumbar region M96.1 Sacroiliac joint pain M53.3 Greater trochanteric bursitis of both hips M70.61; M70.62
[2023-05-09 09:37] VITALS: BP 128/86; PULSE 74; RESP 18; O2SAT 95; BMI 34.8
== END 2023-05-09 09:19 | disposition home or self-care (01) ==
LOC: HO.PMCPRC 07:38
PROVIDERS: PCP Internal Medicine; Visit Provider Anesthesiology
DX: M70.61 Trochanteric bursitis, right hip (principal); M70.62 Trochanteric bursitis, left hip
CPT/HCPCS: 20611

== ENCOUNTER 2023-05-19 11:50 | Outpatient (AMB) | payer MEDICARE, MEDICAID, SELFPAY ==
[2023-05-19 11:54] VITALS: BP 128/76; PULSE 72; O2SAT 98; BMI 34.8
--- NOTE | 2023-05-19 11:54 | MHC.PC.OV ---
Vital Signs 05/19/23 11:54 Height 5 ft 4 in Weight 202 lb 8 oz BMI 34.8 BP 128/76 Blood Pressure Location Rt brachial Position Sitting Pulse 72 Pulse Source Pulse Oximeter Pulse Oximetry (%) 98 Oxygen Delivery Method Room Air Intake Visit Reasons: 3 month follow up Allergies adhesive tape [ADHESIVE TAPE] Allergy (Severe, Verified 05/19/23 11:55) SKIN TEARS pramipexole Allergy (Severe, Verified 05/19/23 11:55) Diarrhea adalimumab [From Humira] Allergy (Intermediate, Verified 05/19/23 11:55) Itching carisoprodol [From SOMA] Allergy (Intermediate, Verified 05/19/23 11:55) SWELLING, RASH cephalexin Allergy (Intermediate, Verified 05/19/23 11:55) Itching gabapentin Allergy (Intermediate, Verified 05/19/23 11:55) leg swelling sulfamethoxazole [From BACTRIM] Allergy (Intermediate, Verified 05/19/23 11:55) SWELLING,RASH trimethoprim [From BACTRIM] Allergy (Intermediate, Verified 05/19/23 11:55) SWELLING,RASH Medication List - Last Reconciled 05/19/23 by Amaya Harris MD acetaminophen 650 mg (2 x 325 mg) PO Q6H PRN 30 days albuterol sulfate 90 mcg/actuation 2 puffs inhalation Q6H PRN aspirin 325 mg PO BID 6 weeks celecoxib (Celebrex) 200 mg PO BID 30 days cholecalciferol (vitamin D3) 50 mcg PO DAILY 90 days clonazepam 1 mg PO BEDTIME 90 days cyclobenzaprine 10 mg PO TID PRN duloxetine 60 mg PO DAILY etanercept (Enbrel Mini) mg subcut fluticasone propion-salmeterol 113-14 mcg/actuation 1 inh inhalation BID ibuprofen 600 mg PO Q8H PRN omeprazole 20 mg PO BID PRN quetiapine (Seroquel) 50 mg (2 x 25 mg) PO BEDTIME 90 days simvastatin 40 mg PO BEDTIME 90 days walker Folding Front wheeled walker Tobacco use date assessed: 04/14/23 Fall risk assessment: 2 + Falls in past year Last assessed Fall Risk: 05/19/23 Dental Screening Dental Screen Date: 05/19/23 Did you have a dental visit in the last 12 months?: No Did you have a dental problem in the last 6 months where you did not have access to dental care?: No Was dental information given to patient?: Patient declined HPI 3 month follow up HPI Details Patient is 63-year-old female came in for her regular follow-up visit Last time patient was seen end of March when she came in because of severe lower back pain Patient have a history of failed back syndrome Status post stimulator placement through [facility] couple of years ago She had x-ray done 2020 report is as following 1. Post fusion changes L5-S1. Hardware intact. No osteolysis. 2. Mild degenerative disc changes L1-L2. 3. Borderline spondylolisthesis L4-L5 with flexion. This normalizes in neutral position and extension. No retrolisthesis. She is taking care of 2-1/2-year-old child at home, makes her her frequently Now complaining of upper thoracic mid back pain Discussed with the patient that it is a muscle strain and most likely because she is picking up the child The treatment will be to stop doing what she is doing to aggravate the muscle. She is now seeing a psychiatrist as well All her depression medications are through them. She has severe depression and difficulty sleeping at night She has been taking Seroquel for a while now, recently lamotrigine was added through Psychiatry which did not help her much. She continued to complain of lot of stress. She will discuss it further with the psychiatrist Patient is on duloxetine 60 mg daily Seroquel 50 mg at bedtime And clonazepam. 1 mg at bedtime And lamotrigine Seasonal asthma stable with ProAir as needed patient is using it 2 times a week Allergies are acting up I have sent cetirizine for the patient She is already using Flonase nasal spray Lipid disorder: Continue simvastatin 40 mg Labs to be done before next visit in 4 months BMI is elevated at 34.8 patient is having difficulty losing weight [facility] Medical History History of COVID-19 Chest pain JOHN positive Chronic pain syndrome Postlaminectomy syndrome of lumbar region Postlaminectomy syndrome of cervical region Chronic GERD Depression, major, in remission Periodic limb movement disorder Sleeping difficulty Sciatica, right side Asthma, moderate Constipation by delayed colonic transit Pre-diabetes DJD (degenerative joint disease) Lipid disorder Bursitis of right shoulder Right shoulder pain Spinal stenosis Back pain Fibromyalgia Degenerative disc disease Surgical History History of lumbar fusion S/P placement of nerve stimulator History of sleeve gastrectomy History of esophagogastroduodenoscopy (EGD) H/O colonoscopy History of gastric bypass Hx of cholecystectomy H/O: hysterectomy H/O spinal fusion H/O shoulder surgery Family History Father No problems noted. Mother No problems noted. Other Mental health disorder Social History Household Members: Other Household Members Other:: son Housing: House Are you a primary day care home provider to a significant other at home: No Do you presently have visiting nurse or other home services: No Alcohol intake: current Alcohol intake frequency: holidays/special occasions only Patient Tobacco Use Status: Former Tobacco user Quit Date: 10 years ago Tobacco use type: Cigarette Years Smoked: 30 e-Cigarette/Vaping Use: Never Used Substance Use Type: Marijuana service: No Current occupational status: disabled Current occupation: right handed Cognitive needs: No Hearing needs: No Vision needs: Yes Questionnaire PHQ-9 Over the last 2 weeks, how often have you been bothered by any of the following problems? 1. Little interest or pleasure in doing things: more than half the days 2. Feeling down, depressed, or hopeless: nearly every day 3. Trouble falling or staying asleep, or sleeping too much: nearly every day 4. Feeling tired or having little energy: nearly every day 5. Poor appetite or overeating: more than half the days 6. Feeling bad about yourself - or that you are a failure or have let yourself or your family down: more than half the days 7. Trouble concentrating on things, such as reading the newspaper or watching television: more than half the days 8. Moving or speaking so slowly that other people could have noticed. Or the opposite - being so fidgety or restless that you have been moving around a lot more than usual: several days 9. Thoughts that you would be better off or of hurting yourself in some way: not at all Total score: 18 Depression Screening Interpretation: Positive Depression Screening Follow-up: Existing condition and In treatment Depression Screening Done: Yes 51621 - PHQ-9 Billing: Yes Source: Developed by Drs. Andrew Lamb, Julia Olivas, Alfonso Silva and colleagues, with an educational elvia from [employer]. Thrive Questionnaire Date Thrive assessed: 08/19/22 CATARINA-7 AMB Questionnaire CATARINA-7 Date CATARINA - 7 assessed: 08/19/22 Source: Developed by Drs. Andrew Lamb, Julia Olivas, Alfonso Silva and colleagues, with an educational elvia from [employer]. Review of Systems Const Denies chills and Denies fever(s) ENT Denies epistaxis and Denies nasal discharge Card Denies chest pain Resp Denies chest congestion, Denies cough and Denies hemoptysis GI Denies diarrhea and Denies nausea Skin/Breast Denies rash Neuro Reports no additional complaints Psych Reports no additional complaints Endo Reports no additional complaints Physical exam (Primary Care) Vital Signs: Last Vital Signs Pulse 72 05/19/23 11:54 BP 128/76 05/19/23 11:54 Pulse Ox 98 05/19/23 11:54 Oxygen Delivery Method Room Air 05/19/23 11:54 BMI result Body Mass Index 34.8 Tobacco/Smoking Status: Tobacco use Status Tobacco use date assessed 04/14/23 05/19/23 11:57 Patient Tobacco Use Status Former Tobacco user 05/19/23 11:57 Tobacco use type Cigarette 05/19/23 11:57 e-Cigarette/Vaping Use Never Used 05/19/23 11:57 PHQ-9: PHQ-9 Score PHQ-9: Total score 18 05/19/23 12:04 Depression Screening Interpretation: Positive Depression Screening Follow-up: Existing condition and In treatment Thrive Assessment: Date of Thrive Assessment Date Thrive assessed 08/19/22 05/19/23 11:57 Const General: cooperative, comfortable and no acute distress Orientation/consciousness: patient oriented x3 HENMT Head: Yes normocephalic Eyes General: appearance normal, both eyes and all related structures Neck Neck: Yes supple Resp Effort & Inspection: normal respiratory effort, no cough and no stridor Cardio Rhythm: regular rhythm Heart sounds: S1 normal heart sound present and S2 normal heart sound present Skin General skin exam: turgor normal Neuro General: patient oriented x3, tone normal and moves all extremities Extrem Right lower extremity: no edema Left lower extremity: no edema Office Procedures Flu Questionnaire Does the patient have a severe egg allergy?: No Does the patient have severe life threatening allergies?: No Does the patient have a fever or illness today?: No Has the patient ever had Guillain-[place] Syndrome?: No Has the patient ever had any past reaction to a flu shot?: No Immunizations flu vacc [id number] 6mos up(PF) 60 mcg(15 mcgx4)/0.5 mL IM syringe Performing Provider: Amaya Harris MD Performing Location: [facility] Administered by: Rima Bolden CMA on 05/19/23 12:05 Dose Route Admin Location Dispensed Lot Number Expiration Date NDC [employer] 0.5 mL IM Left Deltoid 0.5 mL [id number] 01/21/24 65924-613-27 [place] VIS Given Date VIS Provided VIS Publication Date 05/19/23 Single Vaccine 21 Eligibility Eligibility Date Funding Source Not [facility] Eligible 05/19/23 Private Assessment and Plan Assessment & Plan (1) Asthma, mild persistent: Code(s): J45.30 - Mild persistent asthma, uncomplicated Qualifiers: Asthma complication type: uncomplicated Qualified Code(s): J45.30 - Mild persistent asthma, uncomplicated (2) Depression, major, in remission: Comment: All psychiatric medications through Psychiatry Code(s): F32.5 - Major depressive disorder, single episode, in full remission (3) Chronic pain syndrome: Code(s): G89.4 - Chronic pain syndrome (4) Psoriatic arthropathy: Code(s): L40.50 - Arthropathic psoriasis, unspecified (5) Sleeping difficulty: Code(s): G47.9 - Sleep disorder, unspecified (6) Chronic GERD: Code(s): K21.9 - Gastro-esophageal reflux disease without esophagitis (7) Obesity due to excess calories: Comment: Make healthy food choices . Eat lots of fruits, vegetables, whole grains, and low-fat dairy products. Limit the amount of meat and fried or fatty foods that you eat. Be active Walk, garden, or do something active for 30 minutes or more on most days of the week. If you smoke, stop smoking. Smoking increases the chance of heart attack or stroke, or develop cancer.If you are over weight, Lose weight, Being overweight increases the risk of many health problems. Avoid alcohol Alcohol can increase blood sugar and blood pressure. Code(s): E66.09 - Other obesity due to excess calories Qualifiers: Obesity classification: adult class 2 (BMI 35 - 39.9) Serious obesity comorbidity presence: with serious comorbidity Body mass index: BMI 38.0-38.9 Qualified Code(s): E66.01 - Morbid (severe) obesity due to excess calories; Z68.38 - Body mass index [BMI] 38.0-38.9, adult (8) Postlaminectomy syndrome of lumbar region: Comment: Patient is established with [facility] Code(s): M96.1 - Postlaminectomy syndrome, not elsewhere classified (9) Anxiety, generalized: Code(s): F41.1 - Generalized anxiety disorder (10) Pre-diabetes: Comment: Diet-controlled Code(s): R73.03 - Prediabetes (11) Periodic limb movement disorder: Comment: Stable Code(s): G47.61 - Periodic limb movement disorder Plan Patient is 63-year-old female came in for her regular follow-up visit Last time patient was seen end of March when she came in because of severe lower back pain Patient have a history of failed back syndrome Status post stimulator placement through [facility] couple of years ago She had x-ray done 2020 report is as following 1. Post fusion changes L5-S1. Hardware intact. No osteolysis. 2. Mild degenerative disc changes L1-L2. 3. Borderline spondylolisthesis L4-L5 with flexion. This normalizes in neutral position and extension. No retrolisthesis. She is taking care of 2-1/2-year-old child at home, makes her her frequently Now complaining of upper thoracic mid back pain Discussed with the patient that it is a muscle strain and most likely because she is picking up the child The treatment will be to stop doing what she is doing to aggravate the muscle. She is now seeing a psychiatrist as well All her depression medications are through them. She has severe depression and difficulty sleeping at night She has been taking Seroquel for a while now, recently lamotrigine was added through Psychiatry which did not help her much. She continued to complain of lot of stress. She will discuss it further with the psychiatrist Patient is on duloxetine 60 mg daily Seroquel 50 mg at bedtime And clonazepam. 1 mg at bedtime And lamotrigine Seasonal asthma stable with ProAir as needed patient is using it 2 times a week Allergies are acting up I have sent cetirizine for the patient She is already using Flonase nasal spray Lipid disorder: Continue simvastatin 40 mg Labs to be done before next visit in 4 months BMI is elevated at 34.8 patient is having difficulty losing weight Orders: Orders Influenza [id number] Immunization Today Z23 - Encounter for immunization Medications: New cetirizine (Zyrtec) 10 mg PO DAILY PRN 90 caps 3RF allergy symptoms Discontinued cyclobenzaprine Discontinued Reason: Doctor's Order 10 mg PO TID PRN 14 tabs 0RF muscle spasm celecoxib (Celebrex) Discontinued Reason: Doctor's Order 200 mg PO BID 30 days 60 caps 3RF ibuprofen Discontinued Reason: Doctor's Order 600 mg PO Q8H PRN 90 tabs 0RF for pain Coding Level of Care Code Est Pt Level 4 (31904) Diagnoses Mild persistent asthma without complication J45.30 Asthma complication type: uncomplicated Depression, major, in remission F32.5 Chronic pain syndrome G89.4 Psoriatic arthropathy L40.50 Sleeping difficulty G47.9 Chronic GERD K21.9 Class 2 severe obesity due to excess calories with serious comorbidity and body mass index (BMI) of 38.0 to 38.9 in adult E66.01; Z68.38 Obesity classification: adult class 2 (BMI 35 - 39.9) Serious obesity comorbidity presence: with serious comorbidity Body mass index: BMI 38.0-38.9 Postlaminectomy syndrome of lumbar region M96.1 Anxiety, generalized F41.1 Pre-diabetes R73.03 Periodic limb movement disorder G47.61
== END 2023-05-19 12:33 | disposition home or self-care (01) ==
PROVIDERS: PCP Internal Medicine; Visit Provider Internal Medicine
DX: Z23 Encounter for immunization (principal)
CPT/HCPCS: 90471; 90686; 99214

== ENCOUNTER 2023-06-12 08:18 | Outpatient (AMB) | payer MEDICARE, MEDICAID, SELFPAY ==
--- NOTE | 2023-06-12 08:24 | A.OFFVIS_ITS ---
Intake Vital Signs 06/12/23 08:26 Height 5 ft 4 in Weight 200 lb 6 oz BMI 34.4 BP 122/71 Blood Pressure Location Rt brachial Position Sitting Pulse 76 Pulse Source Pulse Oximeter Pulse Oximetry (%) 96 Oxygen Delivery Method Room Air Intake Visit Reasons: BILAT GREATER TROC BURSA STEROID INJ conf. Intake Note: Pain today 01/30 Director Hr Communications Required: No Accompanied by: Self / Same As Patient Allergies adhesive tape [ADHESIVE TAPE] Allergy (Severe, Verified 06/12/23 08:27) SKIN TEARS pramipexole Allergy (Severe, Verified 06/12/23 08:27) Diarrhea adalimumab [From Humira] Allergy (Intermediate, Verified 06/12/23 08:27) Itching carisoprodol [From SOMA] Allergy (Intermediate, Verified 06/12/23 08:27) SWELLING, RASH cephalexin Allergy (Intermediate, Verified 06/12/23 08:27) Itching gabapentin Allergy (Intermediate, Verified 06/12/23 08:27) leg swelling sulfamethoxazole [From BACTRIM] Allergy (Intermediate, Verified 06/12/23 08:27) SWELLING,RASH trimethoprim [From BACTRIM] Allergy (Intermediate, Verified 06/12/23 08:27) SWELLING,RASH HPI HPI Comments History of Present Illness Details Patient presents today to assess response to Bilateral Therapeutic Greater Trochanteric Bursa injections on 05/09/[address] Gloria. Patient reports 70% ongoing pain relief since injections in the projection of both lateral hips with improvement in her sleep and functioning. Patient reports she is able to sleep better on her sides. She continues to endorse left sided low back pain that radiates to her left buttock and lateral hip. Provocative exams for sacroiliac joint area reproduces significant pain on the left. Pain is presents with walking and changing positions. Patient reports she was trying to adjust her SCS device to include coverage for SIJ area but has no improvement. She is interested to proceed with sacroiliac joint injection as next steps. Patient denies any bladder or bowel incontinence or saddle anesthesia. Past Procedures: 05/09/23: Bilateral Therapeutic Greater Trochanteric Bursa injections-70% ongoing pain relief PRIOR: Patient presents today for follow up for left sided sciatica pain. Patient reports frequent falls for the past year. She had right TKA in June 2022 and injured her left knee, shoulders and back in January 2023 when she fell from [facility] per EMR review. Patient recently seen her PCP for back pain and was prescibed Percocet with minimal to moderate pain relief. She also takes NSAIDs, Asper cream roll-on, ice and heat therapy with partial results. Walking, weight bearing, bending, climbing stairs, cold weather, getting out of car or shower increases her pain. Patient reports NEVRO SCS device has been working well for her post laminectomy syndrome but not covering left leg pain. She reports back pain radiating into her left buttock, left lateral hip and left groin. I could not reproduce pain with SLR testing today. However, she has pain with provocative testing for sacroiliac joint and left hip with groin pain. There is no tenderness along her battery pocket or incisional lines in her back. She also reports mid back pain. We will proceed with updating her back imaging, evaluate SCS status and assess degree of arthritis for left hip. She is interested to receive therapeutic injection to alleviate her pain. Denies any fever, weight changes, bladder or bowel dysfunction, or saddle anesthesia. PRIOR 08/25/22 Dr. Gloria: Kaylah is very pleasant 62 years old female who is my office complaining on pain in the posterior right buttock as well as anterior thigh on the right. She is well-known in this clinic she was treated for low back pain in the past with Nevro spinal cord stimulator. According to the patient she had a fall 3 weeks ago after which the symptoms appeared. She was not sent to any x-rays. Today on physical exam attention was attracted to the fact that patient has discomfort in the projection of the ischial tuberosity as well as pain aggravation in the groin with rotation of the right hip. I will send this patient for right hip x- ray. If there are any arthritic changes I will schedule her for intra-articular right hip steroid injection. PRIOR 02/07/22 Dr. Gloria: Kaylah is 61 years old female who presents in my office today status post 4 months of the implantation of spinal cord stimulator Nevro. She received the device to be treated for symptoms of postlaminectomy syndrome. She reports excellent pain relief better mobility better activities of daily living better social interactions. She is very happy with her machine. However she reports that at the side of the battery she feels some discomfort, she reports that battery became loose. She became more active and she lost some weight. She also reports that when she is walking through the narrow drawers she sometimes he the battery on the doors and it aunts to her discomfort. She does not report difficulty charging the device. Unlikely therefore the device is flipped. I discussed the situation with her today. We can potentially relocated the battery into the loin of her liking from the buttock. But that would require 3 incisions to complete for me. Alternatively she can try some topicals Aspercreme with lidocaine and salicylate. I also recommend her to purchase some bedsore protection pads in the pharmacy [id number] and use it for protection of the device from external trauma. We decided that she will see me in 1 month. [facility] Medical History History of COVID-19 Chest pain JOHN positive Chronic pain syndrome Postlaminectomy syndrome of lumbar region Postlaminectomy syndrome of cervical region Chronic GERD Depression, major, in remission Periodic limb movement disorder Sleeping difficulty Sciatica, right side Asthma, moderate Constipation by delayed colonic transit Pre-diabetes DJD (degenerative joint disease) Lipid disorder Bursitis of right shoulder Right shoulder pain Spinal stenosis Back pain Fibromyalgia Degenerative disc disease Surgical History History of lumbar fusion S/P placement of nerve stimulator History of sleeve gastrectomy History of esophagogastroduodenoscopy (EGD) H/O colonoscopy History of gastric bypass Hx of cholecystectomy H/O: hysterectomy H/O spinal fusion H/O shoulder surgery Family History Father No problems noted. Mother No problems noted. Other Mental health disorder Social History Household Members: Other Household Members Other:: son Housing: House Are you a primary manager respiratory care to a significant other at home: No Do you presently have visiting nurse or other home services: No Alcohol intake: current Alcohol intake frequency: holidays/special occasions only Patient Tobacco Use Status: Former Tobacco user Quit Date: 10 years ago Tobacco use type: Cigarette Years Smoked: 30 e-Cigarette/Vaping Use: Never Used Substance Use Type: Marijuana service: No Current occupational status: disabled Current occupation: right handed Cognitive needs: No Hearing needs: No Vision needs: Yes Review of Systems Const All systems reviewed & are unremarkable except as noted in HPI and below Physical Exam Vital Signs: Last Vital Signs Pulse 76 06/12/23 08:26 BP 122/71 06/12/23 08:26 Pulse Ox 96 06/12/23 08:26 Oxygen Delivery Method Room Air 06/12/23 08:26 BMI result Body Mass Index 34.4 General: Appears afebrile. Alert and oriented. Mood and affect appropriate. Follows and participates in conversation appropriately. Respiratory effort is unlabored. No cough. Able to transition from sit to stand unassisted. Ambulates with bilaterally normal heel strike and toe off. Back/Spine/Pelvis Other: Limited lumbar ROM, mild pain with flexion and extension. +1 patellar and ac hilles reflexes bilaterally. Facet loading test positive bilaterally. Ellis sign, Oc?s, Gaenslen, Pelvic compression and Stinchfield tests are positive on the left, reproduce left groin and left buttock pain. Mild left groin pain with I/E hip rotations on the left. Mild TTP at GTB bilaterally, left>right. Cervical Spine: cervical muscular tenderness, Cervical spine scars present and No Cervical spine tenderness Thoracic/Lumbar Spine: thoracic and lumbar spine normal to inspection, Thoracic/lumbar spine scar(s), Lasegue's sign negative, straight leg raise negative bilaterally, pain with thoraco-lumbar ROM, paraspinal muscle tenderness, No thoracic spinal tenderness and lumbar spinal tenderness at L5 Pelvis: buttock tenderness on the left Sacroiliac joints: on the right nontender and on the left tender to palpation Results Reviewed Results Reviewed: XR THORACIC SPINE, 3 VIEWS XR LUMBAR SPINE, 3 VIEWS 04/17/23 CLINICAL INFORMATION: Postlaminectomy syndrome COMPARISON: Lumbar spine radiograph from 05/11/2020 FINDINGS: 5 nonrib-bearing lumbar-type vertebral bodies with diminutive T12 ribs. No acute visible fracture or dislocation. Status post posterior spinal fusion of L5-S1 with bilateral transpedicular screws and interconnecting rods. Status post anterior and posterior fusion of C3-C5. Spinal hardware is grossly intact. Spinal stimulator overlying the right iliac fossa with its leads coursing cranially entering at the level of L1-L2 and terminating at T9. Multilevel degenerative changes with disc space narrowing, osteophyte formation, and facet arthropathy. Vertebral body heights and disc spaces are maintained. Posterior elements are intact. Paraspinal soft tissues are unremarkable. Visualized bowel gas is unremarkable. IMPRESSION: 1. No acute visible fracture or dislocation. 2. Status post posterior spinal fusion of L5-S1 with bilateral transpedicular screws and interconnecting rods. 3. Status post anterior and posterior fusion of C3-C5. 4. Spinal stimulator overlying the right iliac fossa with its leads coursing cranially entering at the level of L1-L2 and terminating at T9. 5. Multilevel degenerative changes. XR HIP, LEFT 04/17/23 CLINICAL INFORMATION: Pain FINDINGS: No acute visible fracture or dislocation. Degenerative arthropathy of the bilateral femoral acetabular joints with joint space narrowing and enthesopathy along the bilateral greater trochanters. Spinal stimulator overlying the right iliac fossa with its leads transmitting cranially. Lower lumbar spinal hardware redemonstrated. Joint spaces and alignment are otherwise maintained. Soft tissues are unremarkable. Pelvic phleboliths are noted. IMPRESSION: 1. No acute visible fracture or dislocation. 2. Degenerative arthropathy of the bilateral femoral acetabular joints. XR HIP, RIGHT 08/25/22 FINDINGS: Right hip joint: Joint space remains normal. No fracture or bone lesion. Small pulmonary focus of calcific or ossific density just posterior to the trochanteric region unchanged compared to prior examinations. Incidental note made of a electronic device with wire overlying the right pelvis is not seen previously. IMPRESSION: 1. No evidence of osteoarthritis of the right hip. 2. Small focus of calcific or ossific density just posterior to the trochanteric region unchanged compared to prior examinations. This could reflect calcific tendinitis or tendinosis. XR/XR sacroiliac joint min 3V 01/18/21 IMPRESSION: No significant sacroiliac joint abnormality appreciated. Status post transpedicular fusion L5-S1. Assessment & Plan Assessment & Plan (1) Postlaminectomy syndrome of lumbar region: Comment: Patient is established with [facility] Code(s): M96.1 - Postlaminectomy syndrome, not elsewhere classified (2) Sacroiliac joint pain: Code(s): M53.3 - Sacrococcygeal disorders, not elsewhere classified (3) Greater trochanteric bursitis of both hips: Code(s): M70.61 - Trochanteric bursitis, right hip; M70.62 - Trochanteric bursitis, left hip Plan Patient is status post bilateral GTB steroid injection with ongoing 70% pain relief. She presents with chronic left SIJ pain and would like to undergo injections to confirm this. Provocative exams reproduce left sided SIJ pain with localized tenderness. Schedule Left Diagnostic Sacroiliac Joint injection with local and fluoroscopy. Oral Ativan prior to injections per patient's request. If no significant pain relief, will consider therapeutic injection or RFA. Expectations, risks and benefits were reviewed. Patient is aware she will be contacted to schedule this procedure. All questions were answered and the patient is in agreement of plan. Follow-up after injections and sooner as needed. Coding Level of Care Code Est Pt Level 4 (27195) Diagnoses Postlaminectomy syndrome of lumbar region M96.1 Sacroiliac joint pain M53.3 Greater trochanteric bursitis of both hips M70.61; M70.62
[2023-06-12 08:26] VITALS: BP 122/71; PULSE 76; O2SAT 96; BMI 34.4
== END 2023-06-12 08:55 | disposition home or self-care (01) ==
PROVIDERS: PCP Internal Medicine; Visit Provider Nurse Practitioner Family
DX: M96.1 Postlaminectomy syndrome, not elsewhere classified (principal); M53.3 Sacrococcygeal disorders, not elsewhere classified; M70.61 Trochanteric bursitis, right hip; M70.62 Trochanteric bursitis, left hip
CPT/HCPCS: 99214

== ENCOUNTER → 2023-06-12 08:18 | Outpatient (BNVA) | payer MEDICARE, MEDICAID, SELFPAY | PROVIDERS: PCP Internal Medicine; Visit Provider Nurse Practitioner Family | DX: M96.1 Postlaminectomy syndrome, not elsewhere classified (principal); M53.3 Sacrococcygeal disorders, not elsewhere classified; M70.61 Trochanteric bursitis, right hip; M70.62 Trochanteric bursitis, left hip | CPT/HCPCS: 99212 ==

== ENCOUNTER 2023-07-04 06:12 | Outpatient (REF) | payer MEDICARE, MEDICAID, SELFPAY ==
--- NOTE | ~2023-07-04 | FL_ITS ---
EXAMINATION: XR FLUOROSCOPY WITH IMAGES CLINICAL INFORMATION: Sacrococcygeal disorders, not elsewhere classified. COMPARISON: None available. TECHNIQUE: Fluoroscopy Supervised By: Dr. Junior Gloria. Fluoroscopy Time: 0.1 minute. Cumulative Dose: 3.87 mGy. DAP: 0.0333 Gycm2. Images: 2. FINDINGS: Images demonstrate needle placement and contrast injection over the left sacroiliac joint FL/FL guidance in treatment room IMPRESSION: Fluoroscopy guidance for left sacroiliac joint injection.
== END 2023-07-04 06:13 | disposition home or self-care (01) ==
LOC: CF 06:12
PROVIDERS: Visit Provider Anesthesiology
DX: M53.3 Sacrococcygeal disorders, not elsewhere classified (principal); M96.1 Postlaminectomy syndrome, not elsewhere classified; M70.62 Trochanteric bursitis, left hip; M70.61 Trochanteric bursitis, right hip
CPT/HCPCS: 27096; J2795; Q9967

== ENCOUNTER 2023-07-04 13:15 | Outpatient (AMB) | payer MEDICARE, MEDICAID, SELFPAY ==
--- NOTE | 2023-07-04 13:29 | MHC.OFFVIS ---
Intake Vital Signs 07/04/23 15:01 07/04/23 15:04 Height 5 ft 4 in 5 ft 4 in Weight 200 lb 6 oz 200 lb 6 oz BMI 34.4 34.4 BP 118/90 H 120/58 L Blood Pressure Location Lt brachial Rt brachial Position Sitting Respiration 16 16 Pulse 104 H 88 Pulse Source Pulse Oximeter Pulse Oximeter Pulse Oximetry (%) 99 98 Oxygen Delivery Method Room Air Room Air Comment pre-op post-op Intake Visit Reasons: LEFT DIAGNOSTIC SIJ INJ/ATIVAN REQ Allergies adhesive tape [ADHESIVE TAPE] Allergy (Severe, Verified 07/04/23 15:04) SKIN TEARS pramipexole Allergy (Severe, Verified 07/04/23 15:04) Diarrhea adalimumab [From Humira] Allergy (Intermediate, Verified 07/04/23 15:04) Itching carisoprodol [From SOMA] Allergy (Intermediate, Verified 07/04/23 15:04) SWELLING, RASH cephalexin Allergy (Intermediate, Verified 07/04/23 15:04) Itching gabapentin Allergy (Intermediate, Verified 07/04/23 15:04) leg swelling sulfamethoxazole [From BACTRIM] Allergy (Intermediate, Verified 07/04/23 15:04) SWELLING,RASH trimethoprim [From BACTRIM] Allergy (Intermediate, Verified 07/04/23 15:04) SWELLING,RASH PFSH Medical History History of COVID-19 Chest pain JOHN positive Chronic pain syndrome Postlaminectomy syndrome of lumbar region Postlaminectomy syndrome of cervical region Chronic GERD Depression, major, in remission Periodic limb movement disorder Sleeping difficulty Sciatica, right side Asthma, moderate Constipation by delayed colonic transit Pre-diabetes DJD (degenerative joint disease) Lipid disorder Bursitis of right shoulder Right shoulder pain Spinal stenosis Back pain Fibromyalgia Degenerative disc disease Surgical History History of lumbar fusion S/P placement of nerve stimulator History of sleeve gastrectomy History of esophagogastroduodenoscopy (EGD) H/O colonoscopy History of gastric bypass Hx of cholecystectomy H/O: hysterectomy H/O spinal fusion H/O shoulder surgery Family History Father No problems noted. Mother No problems noted. Other Mental health disorder Social History Household Members: Other Household Members Other:: son Housing: House Are you a primary healthcare administrative assistant to a significant other at home: No Do you presently have visiting nurse or other home services: No Alcohol intake: current Alcohol intake frequency: holidays/special occasions only Comment: pts baseline pain is 6/10 Patient Tobacco Use Status: Former Tobacco user Quit Date: 10 years ago Tobacco use type: Cigarette Years Smoked: 30 e-Cigarette/Vaping Use: Never Used Substance Use Type: Marijuana service: No Current occupational status: disabled Current occupation: right handed Cognitive needs: No Hearing needs: No Vision needs: Yes Physical Exam Vital Signs: Last Vital Signs Pulse 88 07/04/23 15:04 Resp 16 07/04/23 15:04 BP 120/58 L 07/04/23 15:04 Pulse Ox 98 07/04/23 15:04 Oxygen Delivery Method Room Air 07/04/23 15:04 BMI result Body Mass Index 34.4 Assessment & Plan Assessment & Plan (1) Postlaminectomy syndrome of lumbar region: Comment: Patient is established with Pain Management [facility] Code(s): M96.1 - Postlaminectomy syndrome, not elsewhere classified (2) Sacroiliac joint pain: Code(s): M53.3 - Sacrococcygeal disorders, not elsewhere classified Plan: Left sacroiliac joint injection Informed consent was explained thoroughly to the patient.? All questions about benefits and risks for the procedure were answered. Patient came to the operating room and was positioned prone on the operating table with the pillow under her pelvis. Time out was performed delineating name and of the patient, site and side of the procedure, nature of the procedure and potential patient?s risks. The lower back of the patient and upper buttocks was prepped with ChloraPrep prepped and draped with sterile utility drapes.? C-arm was brought over the operating field and square picture of patient's pelvis was demonstrated on the screen.? For the left joint tilting C-arm contralateral to the site of the joint the posterior joint silhouette was delineated on the screen. Skin projection of the joint was chosen as a target of the injection and it was injected ?slightly medial to the location of the joint with 25 gauge needle using local lidocaine 2% without epinephrine. After that 22 gauge 3 and 1/2 inch needle was driven to the joint silhouette in tunnel vision fashion.? When needle entered the joint capsule injection of the contrast was performed demonstrating intra-articular spread of the contrast.? After that 4 cc. of ropivacaine 0.5% was injected into the joint. Upon completion of the injections the needle was removed and sterile dressing was applied.? Upon completion of the injection patient was awaken taken outside of the operating room to the recovery room where recovered uneventfully.? (3) Greater trochanteric bursitis of both hips: Code(s): M70.61 - Trochanteric bursitis, right hip; M70.62 - Trochanteric bursitis, left hip Plan Patient is status post bilateral GTB steroid injection with ongoing 70% pain relief. She presents with chronic left SIJ pain and would like to undergo injections to confirm this. Provocative exams reproduce left sided SIJ pain with localized tenderness. Schedule Left Diagnostic Sacroiliac Joint injection with local and fluoroscopy. Oral Ativan prior to injections per patient's request. If no significant pain relief, will consider therapeutic injection or RFA. Expectations, risks and benefits were reviewed. Patient is aware she will be contacted to schedule this procedure. All questions were answered and the patient is in agreement of plan. Follow-up after injections and sooner as needed. Orders: Orders FL guidance in treatment room 07/04/23 M53.3 - Sacrococcygeal disorders, not elsewhere classified Coding Level of Care Code Procedure Only Diagnoses Postlaminectomy syndrome of lumbar region M96.1 Sacroiliac joint pain M53.3 Greater trochanteric bursitis of both hips M70.61; M70.62
[2023-07-04 15:01] VITALS: BP 118/90; PULSE 104; RESP 16; O2SAT 99; BMI 34.4
[2023-07-04 15:04] VITALS: BP 120/58; PULSE 88; RESP 16; O2SAT 98; BMI 34.4
== END 2023-07-04 14:48 | disposition home or self-care (01) ==
LOC: HO.PMCPRC 13:15
PROVIDERS: PCP Internal Medicine; Visit Provider Anesthesiology
DX: M53.3 Sacrococcygeal disorders, not elsewhere classified (principal)
CPT/HCPCS: 27096

== ENCOUNTER 2023-07-11 12:52 | Outpatient (AMB) | payer MEDICARE, MEDICAID, SELFPAY ==
--- NOTE | 2023-07-11 13:14 | MHC.OFFVIS ---
Intake Vital Signs 07/11/23 13:18 Height 5 ft 4 in Weight 200 lb BMI 34.3 BP 138/73 Blood Pressure Location Rt brachial Position Sitting Pulse 83 Pulse Source Pulse Oximeter Pulse Oximetry (%) 96 Oxygen Delivery Method Room Air Intake Visit Reasons: LEFT DIAGNOSTIC SIJ INJECTION/07/04/23 Intake Note: Pain today 11/30 Typing Teacher Required: No Accompanied by: Grand Child Allergies adhesive tape [ADHESIVE TAPE] Allergy (Severe, Verified 07/11/23 13:18) SKIN TEARS pramipexole Allergy (Severe, Verified 07/11/23 13:18) Diarrhea adalimumab [From Humira] Allergy (Intermediate, Verified 07/11/23 13:18) Itching carisoprodol [From SOMA] Allergy (Intermediate, Verified 07/11/23 13:18) SWELLING, RASH cephalexin Allergy (Intermediate, Verified 07/11/23 13:18) Itching gabapentin Allergy (Intermediate, Verified 07/11/23 13:18) leg swelling sulfamethoxazole [From BACTRIM] Allergy (Intermediate, Verified 07/11/23 13:18) SWELLING,RASH trimethoprim [From BACTRIM] Allergy (Intermediate, Verified 07/11/23 13:18) SWELLING,RASH HPI HPI Comments History of Present Illness Details Patient presents today to assess response to left diagnostic sacroiliac joint injection on 07/04/[address] Gloria. Patient reports 30% pain relief since injections for 2 hours in the projection of left buttock and left hip without any significant improvement in her mobility, sleep or functioning. Reports constantly repositining at night due to bilateral lateral hip pain. Reports left lateral hip pain occasionally radiating into her left groin area and states her left hip gives out at times. She continues to endorse low back pain. Her last Nevro SCS adjustment was in February without symptom improvement. She is interested to proceed with left hip steroid injection as next steps. Most recent left hip xray showed degenerative arthropathy of the bilateral femoral acetabular joints with joint space narrowing and enthesopathy along the bilateral greater trochanters. Patient denies any bladder or bowel incontinence or saddle anesthesia. Past Procedures: 07/04/23: Left Diagnostic Sacroiliac Joint Injection-30% pain relief for 2 hours 05/09/23: Bilateral Therapeutic Greater Trochanteric Bursa injections-70% ongoing pain relief PRIOR: Patient presents today for follow up for left sided sciatica pain. Patient reports frequent falls for the past year. She had right TKA in June 2022 and injured her left knee, shoulders and back in January 2023 when she fell from [facility] per EMR review. Patient recently seen her PCP for back pain and was prescibed Percocet with minimal to moderate pain relief. She also takes NSAIDs, Asper cream roll-on, ice and heat therapy with partial results. Walking, weight bearing, bending, climbing stairs, cold weather, getting out of car or shower increases her pain. Patient reports NEVRO SCS device has been working well for her post laminectomy syndrome but not covering left leg pain. She reports back pain radiating into her left buttock, left lateral hip and left groin. I could not reproduce pain with SLR testing today. However, she has pain with provocative testing for sacroiliac joint and left hip with groin pain. There is no tenderness along her battery pocket or incisional lines in her back. She also reports mid back pain. We will proceed with updating her back imaging, evaluate SCS status and assess degree of arthritis for left hip. She is interested to receive therapeutic injection to alleviate her pain. Denies any fever, weight changes, bladder or bowel dysfunction, or saddle anesthesia. PRIOR 08/25/22 Dr. Gloria: Kaylah is very pleasant 62 years old female who is my office complaining on pain in the posterior right buttock as well as anterior thigh on the right. She is well-known in this clinic she was treated for low back pain in the past with Nevro spinal cord stimulator. According to the patient she had a fall 3 weeks ago after which the symptoms appeared. She was not sent to any x-rays. Today on physical exam attention was attracted to the fact that patient has discomfort in the projection of the ischial tuberosity as well as pain aggravation in the groin with rotation of the right hip. I will send this patient for right hip x-ray. If there are any arthritic changes I will schedule her for intra-articular right hip steroid injection. PRIOR 02/07/22 Dr. Gloria: Kaylah is 61 years old female who presents in my office today status post 4 months of the implantation of spinal cord stimulator Nevro. She received the device to be treated for symptoms of postlaminectomy syndrome. She reports excellent pain relief better mobility better activities of daily living better social interactions. She is very happy with her machine. However she reports that at the side of the battery she feels some discomfort, she reports that battery became loose. She became more active and she lost some weight. She also reports that when she is walking through the narrow drawers she sometimes he the battery on the doors and it aunts to her discomfort. She does not report difficulty charging the device. Unlikely therefore the device is flipped. I discussed the situation with her today. We can potentially relocated the battery into the loin of her liking from the buttock. But that would require 3 incisions to complete for me. Alternatively she can try some topicals Aspercreme with lidocaine and salicylate. I also recommend her to purchase some bedsore protection pads in the pharmacy [id number] and use it for protection of the device from external trauma. We decided that she will see me in 1 month. [facility] Medical History History of COVID-19 Chest pain JOHN positive Chronic pain syndrome Postlaminectomy syndrome of lumbar region Postlaminectomy syndrome of cervical region Chronic GERD Depression, major, in remission Periodic limb movement disorder Sleeping difficulty Sciatica, right side Asthma, moderate Constipation by delayed colonic transit Pre-diabetes DJD (degenerative joint disease) Lipid disorder Bursitis of right shoulder Right shoulder pain Spinal stenosis Back pain Fibromyalgia Degenerative disc disease Surgical History History of lumbar fusion S/P placement of nerve stimulator History of sleeve gastrectomy History of esophagogastroduodenoscopy (EGD) H/O colonoscopy History of gastric bypass Hx of cholecystectomy H/O: hysterectomy H/O spinal fusion H/O shoulder surgery Family History Father No problems noted. Mother No problems noted. Other Mental health disorder Social History Household Members: Other Household Members Other:: son Housing: House Are you a primary memory care program director to a significant other at home: No Do you presently have visiting nurse or other home services: No Alcohol intake: current Alcohol intake frequency: holidays/special occasions only Comment: pts baseline pain is 6/10 Patient Tobacco Use Status: Former Tobacco user Quit Date: 10 years ago Tobacco use type: Cigarette Years Smoked: 30 e-Cigarette/Vaping Use: Never Used Substance Use Type: Marijuana service: No Current occupational status: disabled Current occupation: right handed Cognitive needs: No Hearing needs: No Vision needs: Yes Review of Systems Const All systems reviewed & are unremarkable except as noted in HPI and below Physical Exam Vital Signs: Last Vital Signs Pulse 83 07/11/23 13:18 BP 138/73 07/11/23 13:18 Pulse Ox 96 07/11/23 13:18 Oxygen Delivery Method Room Air 07/11/23 13:18 BMI result Body Mass Index 34.3 General: Appears afebrile. Alert and oriented. Mood and affect appropriate. Follows and participates in conversation appropriately. Respiratory effort is unlabored. No cough. Able to transition from sit to stand unassisted. Ambulates with bilaterally normal heel strike and toe off. Back/Spine/Pelvis Other: Limited lumbar ROM with flexion and extension. Facet loading test positive bilaterally. Oc?s, Pelvic compression and Stinchfield tests are positive on the left, reproduce left groin and left buttock pain. Moderate left groin pain with I/E hip rotations on the left. Mild TTP at GTB bilaterally. Cervical Spine: cervical ROM normal, Cervical spine scars present and No Cervical spine tenderness Thoracic/Lumbar Spine: thoracic and lumbar spine normal to inspection, Thoracic/lumbar spine scar(s), Lasegue's sign negative, straight leg raise negative bilaterally, pain with thoraco-lumbar ROM, paraspinal muscle tenderness, No thoracic spinal tenderness and lumbar spinal tenderness at L5 Pelvis: buttock tenderness on the left Sacroiliac joints: on the right nontender and on the left tender to palpation Results Reviewed Results Reviewed: XR THORACIC SPINE, 3 VIEWS XR LUMBAR SPINE, 3 VIEWS 04/17/23 CLINICAL INFORMATION: Postlaminectomy syndrome COMPARISON: Lumbar spine radiograph from 05/11/2020 FINDINGS: 5 nonrib-bearing lumbar-type vertebral bodies with diminutive T12 ribs. No acute visible fracture or dislocation. Status post posterior spinal fusion of L5-S1 with bilateral transpedicular screws and interconnecting rods. Status post anterior and posterior fusion of C3-C5. Spinal hardware is grossly intact. Spinal stimulator overlying the right iliac fossa with its leads coursing cranially entering at the level of L1-L2 and terminating at T9. Multilevel degenerative changes with disc space narrowing, osteophyte formation, and facet arthropathy. Vertebral body heights and disc spaces are maintained. Posterior elements are intact. Paraspinal soft tissues are unremarkable. Visualized bowel gas is unremarkable. IMPRESSION: 1. No acute visible fracture or dislocation. 2. Status post posterior spinal fusion of L5-S1 with bilateral transpedicular screws and interconnecting rods. 3. Status post anterior and posterior fusion of C3-C5. 4. Spinal stimulator overlying the right iliac fossa with its leads coursing cranially entering at the level of L1-L2 and terminating at T9. 5. Multilevel degenerative changes. XR HIP, LEFT 04/17/23 CLINICAL INFORMATION: Pain FINDINGS: No acute visible fracture or dislocation. Degenerative arthropathy of the bilateral femoral acetabular joints with joint space narrowing and enthesopathy along the bilateral greater trochanters. Spinal stimulator overlying the right iliac fossa with its leads transmitting cranially. Lower lumbar spinal hardware redemonstrated. Joint spaces and alignment are otherwise maintained. Soft tissues are unremarkable. Pelvic phleboliths are noted. IMPRESSION: 1. No acute visible fracture or dislocation. 2. Degenerative arthropathy of the bilateral femoral acetabular joints. XR HIP, RIGHT 08/25/22 FINDINGS: Right hip joint: Joint space remains normal. No fracture or bone lesion. Small pulmonary focus of calcific or ossific density just posterior to the trochanteric region unchanged compared to prior examinations. Incidental note made of a electronic device with wire overlying the right pelvis is not seen previously. IMPRESSION: 1. No evidence of osteoarthritis of the right hip. 2. Small focus of calcific or ossific density just posterior to the trochanteric region unchanged compared to prior examinations. This could reflect calcific tendinitis or tendinosis. XR/XR sacroiliac joint min 3V 01/18/21 IMPRESSION: No significant sacroiliac joint abnormality appreciated. Status post transpedicular fusion L5-S1. Assessment & Plan Assessment & Plan (1) Postlaminectomy syndrome of lumbar region: Comment: Patient is established with [facility] Code(s): M96.1 - Postlaminectomy syndrome, not elsewhere classified (2) Sacroiliac joint pain: Code(s): M53.3 - Sacrococcygeal disorders, not elsewhere classified (3) Greater trochanteric bursitis of both hips: Code(s): M70.61 - Trochanteric bursitis, right hip; M70.62 - Trochanteric bursitis, left hip (4) Left hip pain: Code(s): M25.552 - Pain in left hip Plan Patient is status post left diagnostic SIJ injection with minimal pain relief. She also presents with chronic left hip pain and would like to undergo injections to confirm this. Schedule Left Intra-articular Hip Steroid Joint injection with sedation and fluoroscopy. Expectations, risks and benefits were reviewed. Patient is aware she will be contacted to schedule this procedure. Will plan for SCS device re-programming with Claude melvin at next follow up visit. All questions were answered and the patient is in agreement of plan. Follow-up after injections and sooner as needed. Coding Level of Care Code Est Pt Level 4 (06559) Diagnoses Postlaminectomy syndrome of lumbar region M96.1 Sacroiliac joint pain M53.3 Greater trochanteric bursitis of both hips M70.61; M70.62 Left hip pain M25.552
[2023-07-11 13:18] VITALS: BP 138/73; PULSE 83; O2SAT 96; BMI 34.3
== END 2023-07-11 13:34 | disposition home or self-care (01) ==
PROVIDERS: PCP Internal Medicine; Visit Provider Nurse Practitioner Family
DX: M96.1 Postlaminectomy syndrome, not elsewhere classified (principal); M53.3 Sacrococcygeal disorders, not elsewhere classified; M70.61 Trochanteric bursitis, right hip; M70.62 Trochanteric bursitis, left hip; M25.552 Pain in left hip
CPT/HCPCS: 99214

== ENCOUNTER → 2023-07-11 12:52 | Outpatient (BNVA) | payer MEDICARE, MEDICAID, SELFPAY | PROVIDERS: PCP Internal Medicine; Visit Provider Nurse Practitioner Family | DX: M96.1 Postlaminectomy syndrome, not elsewhere classified (principal); M53.3 Sacrococcygeal disorders, not elsewhere classified; M70.61 Trochanteric bursitis, right hip; M70.62 Trochanteric bursitis, left hip; M25.552 Pain in left hip | CPT/HCPCS: 99212 ==

== ENCOUNTER 2023-07-27 11:06 | Day surgery (SDC) | payer MEDICARE, MEDICAID, SELFPAY ==
[2023-07-25 09:16] VITALS: BMI 34.3
--- NOTE | 2023-07-26 08:22 | HO.ANESPROP2 ---
Documented by User: Mary Hung NP 07/26/23 08:24 HPI - Anesthesia Eval Consult details Narrative: 63yo F for Left Intra-Articular Hip Steroid Injection PMFSH Active Problems Active Problems: All Active Problems (Updated 05/19/23 @ 12:32 by Amaya Harris MD) Asthma, mild persistent (Acute) Greater trochanteric bursitis of both hips (Acute) Sacroiliac joint pain (Acute) Frequent falls (Acute) Left hip pain (Acute) Encounter for general adult medical examination with abnormal findings (Acute) Osteoarthritis of right glenohumeral joint (Acute) Posterior left knee pain (Acute) Tendinopathy of right shoulder (Acute) Effusion, right knee (Acute) Restless leg syndrome (Acute) Effusion of left knee (Acute) Osteoarthritis of left knee (Acute) Right leg numbness (Acute) Arthritis of right hip (Acute) Anemia (Acute) Status post total knee replacement, right (Acute) Pre-op evaluation (Acute) Osteoarthritis of right knee (Acute) Pain management (Acute) Internal derangement of right knee (Acute) Psoriatic arthropathy (Acute) Acute pain of right knee (Acute) Medicare annual wellness visit, subsequent (Acute) S/P insertion of spinal cord stimulator (Acute) Anxiety, generalized (Acute) Leg pain, bilateral (Acute) Hand paresthesia (Acute) Obesity due to excess calories (Acute) Impingement syndrome of right shoulder (Acute) Grieving (Acute) Skin growth (Acute) Severe major depression (Acute) Flushing (Acute) Psoriatic arthritis (Acute) Chronic GERD (Acute) Difficulty sleeping (Acute) Abdominal pain (Acute) Psoriasis (Acute) Impingement syndrome, shoulder, left (Acute) Rotator cuff tendonitis (Acute) Right shoulder pain (Acute) Bursitis of right shoulder (Acute) Lipid disorder (Acute) DJD (degenerative joint disease) (Acute) Pre-diabetes (Acute) Constipation by delayed colonic transit (Acute) Asthma, moderate (Acute) Sciatica, right side (Acute) Sleeping difficulty (Acute) Periodic limb movement disorder (Acute) Depression, major, in remission (Acute) Chronic GERD (Acute) Postlaminectomy syndrome of cervical region (Acute) Postlaminectomy syndrome of lumbar region (Acute) Chronic pain syndrome (Acute) JOHN positive (Acute) Chest pain (Acute) Past Medical History Medical History History of COVID-19 Chest pain JOHN positive Chronic pain syndrome Postlaminectomy syndrome of lumbar region Postlaminectomy syndrome of cervical region Chronic GERD Depression, major, in remission Periodic limb movement disorder Sleeping difficulty Sciatica, right side Asthma, moderate Constipation by delayed colonic transit Pre-diabetes DJD (degenerative joint disease) Lipid disorder Bursitis of right shoulder Right shoulder pain Spinal stenosis Back pain Fibromyalgia Degenerative disc disease Family History Family History Father No problems noted. Mother No problems noted. Other Mental health disorder Family history of problems with anesthesia: No Surgical History Surgical History History of total right knee replacement History of lumbar fusion S/P placement of nerve stimulator History of sleeve gastrectomy History of esophagogastroduodenoscopy (EGD) H/O colonoscopy History of gastric bypass Hx of cholecystectomy H/O: hysterectomy H/O spinal fusion H/O shoulder surgery History of Problems with Anesthesia: No Social History Social History Household Members: Other Household Members Other:: son Housing: House Are you a primary health care analyst to a significant other at home: No Do you presently have visiting nurse or other home services: No Alcohol intake: current Alcohol intake frequency: holidays/special occasions only Comment: pts baseline pain is 6/10 Patient Tobacco Use Status: Former Tobacco user Quit Date: 10 years ago Tobacco use type: Cigarette Years Smoked: 30 e-Cigarette/Vaping Use: Never Used Second Hand Smoke Exposure: No Substance Use Type: Marijuana service: No Current occupational status: disabled Current occupation: right handed Cognitive needs: No Hearing needs: No Vision needs: Yes Meds Allergies Allergy/AdvReac Type Severity Reaction Status Date / Time adhesive tape [ADHESIVE TAPE] Allergy Severe SKIN TEARS Verified 07/11/23 13:18 pramipexole Allergy Severe Diarrhea Verified 07/11/23 13:18 adalimumab [From Humira] Allergy Intermediate Itching Verified 07/11/23 13:18 carisoprodol [From SOMA] Allergy Intermediate SWELLING, Verified 07/11/23 13:18 RASH cephalexin Allergy Intermediate Itching Verified 07/11/23 13:18 gabapentin Allergy Intermediate leg Verified 07/11/23 13:18 swelling sulfamethoxazole Allergy Intermediate SWELLING,RA Verified 07/11/23 13:18 [From BACTRIM] SH trimethoprim [From BACTRIM] Allergy Intermediate SWELLING,RA Verified 07/11/23 13:18 SH Home Medications Medication Instructions Recorded Confirmed Last Taken Type albuterol sulfate 90 mcg/actuation 2 puff inhalation Q6H PRN 10/13/20 07/25/23 Unknown History aerosol inhaler Shortness Of Breath etanercept 50 mg/mL (1 mL) 50 mg subcut QWEEK 02/04/23 07/25/23 Unknown History subcutaneous cartridge (Enbrel Mini) Exam Height,Weight and Vital Signs: Height 5 ft 4 in Weight 90.718 kg Pertinent Lab Results Pertinent Lab Results: Laboratory Tests 02/16/23 09:11 WBC 11.6 H Hgb 13.0 Hct 42.4 Plt Count 323 Sodium 141 Potassium 4.2 Chloride 106 Carbon Dioxide 23 BUN 12 Creatinine 0.65 Assessment and Plan Assessment Anesthesia Assessment: Chart Reviewed Final Anesthetic Review Family History of Problems with Anesthesia: No History of Problems with Anesthesia: No Documented by User: Serene Murphy MD 07/27/23 17:26 [facility] Active Problems Active Problems: All Active Problems (Updated 07/27/23 @ 16:15 by Serene Murphy MD) Asthma, mild persistent- inhaler prn Greater trochanteric bursitis of both hips (Acute) Sacroiliac joint pain (Acute) Frequent falls (Acute) Left hip pain (Acute) Encounter for general adult medical examination with abnormal findings (Acute) Osteoarthritis of right glenohumeral joint (Acute) Posterior left knee pain (Acute) Tendinopathy of right shoulder (Acute) Effusion, right knee (Acute) Restless leg syndrome (Acute) Effusion of left knee (Acute) Osteoarthritis of left knee (Acute) Right leg numbness (Acute) Arthritis of right hip (Acute) Anemia - resolved Status post total knee replacement, right (Acute) Pre-op evaluation (Acute) Osteoarthritis of right knee (Acute) Pain management (Acute) Internal derangement of right knee (Acute) Psoriatic arthropathy (Acute) Acute pain of right knee (Acute) Medicare annual wellness visit, subsequent (Acute) S/P insertion of spinal cord stimulator (Acute) Anxiety, generalized (Acute) Leg pain, bilateral (Acute) Hand paresthesia (Acute) Obesity due to excess calories (Acute) Impingement syndrome of right shoulder (Acute) Grieving (Acute) Skin growth (Acute) Severe major depression (Acute) Flushing (Acute) Psoriatic arthritis (Acute) Chronic GERD (Acute) Difficulty sleeping (Acute) Abdominal pain (Acute) Psoriasis (Acute) Impingement syndrome, shoulder, left (Acute) Rotator cuff tendonitis (Acute) Right shoulder pain (Acute) Bursitis of right shoulder (Acute) Lipid disorder (Acute) DJD (degenerative joint disease) (Acute) Pre-diabetes (Acute) Constipation by delayed colonic transit (Acute) Asthma, moderate (Acute) Sciatica, right side (Acute) Periodic limb movement disorder (Acute) Depression, major, in remission (Acute) Postlaminectomy syndrome of cervical region (Acute) Postlaminectomy syndrome of lumbar region (Acute) Chronic pain syndrome (Acute) JOHN positive (Acute) Past Medical History Medical History History of COVID-19 Chest pain JHON positive Chronic pain syndrome Postlaminectomy syndrome of lumbar region Postlaminectomy syndrome of cervical region Chronic GERD Depression, major, in remission Periodic limb movement disorder Sleeping difficulty Sciatica, right side Asthma, moderate Constipation by delayed colonic transit Pre-diabetes DJD (degenerative joint disease) Lipid disorder Bursitis of right shoulder Right shoulder pain Spinal stenosis Back pain Fibromyalgia Degenerative disc disease Family History Family History Father No problems noted. Mother No problems noted. Other Mental health disorder Surgical History Surgical History History of total right knee replacement History of lumbar fusion S/P placement of nerve stimulator History of sleeve gastrectomy History of esophagogastroduodenoscopy (EGD) H/O colonoscopy History of gastric bypass Hx of cholecystectomy H/O: hysterectomy H/O spinal fusion H/O shoulder surgery Social History Social History Household Members: Other Household Members Other:: son Housing: House Are you a primary health care analyst to a significant other at home: No Do you presently have visiting nurse or other home services: No Alcohol intake: current Alcohol intake frequency: holidays/special occasions only Comment: pts baseline pain is 6/10 Patient Tobacco Use Status: Former Tobacco user Quit Date: 10 years ago Tobacco use type: Cigarette Years Smoked: 30 e-Cigarette/Vaping Use: Never Used Second Hand Smoke Exposure: No Substance Use Type: Marijuana service: No Current occupational status: disabled Current occupation: right handed Cognitive needs: No Hearing needs: No Vision needs: Yes Meds Allergies Allergy/AdvReac Type Severity Reaction Status Date / Time adhesive tape [ADHESIVE TAPE] Allergy Severe SKIN TEARS Verified 07/11/23 13:18 pramipexole Allergy Severe Diarrhea Verified 07/11/23 13:18 adalimumab [From Humira] Allergy Intermediate Itching Verified 07/11/23 13:18 carisoprodol [From SOMA] Allergy Intermediate SWELLING, Verified 07/11/23 13:18 RASH cephalexin Allergy Intermediate Itching Verified 07/11/23 13:18 gabapentin Allergy Intermediate leg Verified 07/11/23 13:18 swelling sulfamethoxazole Allergy Intermediate SWELLING,RA Verified 07/11/23 13:18 [From BACTRIM] SH trimethoprim [From BACTRIM] Allergy Intermediate SWELLING,RA Verified 07/11/23 13:18 SH Home Medications Medication Instructions Recorded Confirmed Last Taken Type albuterol sulfate 90 mcg/actuation 2 puff inhalation Q6H PRN 10/13/20 07/25/23 Unknown History aerosol inhaler Shortness Of Breath etanercept 50 mg/mL (1 mL) 50 mg subcut QWEEK 02/04/23 07/25/23 Unknown History subcutaneous cartridge (Enbrel Mini) Exam Height,Weight and Vital Signs: Height 5 ft 4 in Weight 90.718 kg Airway Mallampati Class: II TM Dist: >3cm Neck ROM: Limited (but extension ok) Loose/Missing/Broken Teeth: Yes (Broken tooth bottom front. Many missing. Denies loose) Heart: RRR Lungs: CTAB Assessment and Plan Assessment Anesthesia Assessment: Anesthesia Plan Discussed Final Anesthetic Review NPO: Yes ASA Class: II Final Preanesthetic Review: No Changes in Pt Med Stat, Meds/Allgs Chart Reviewed, Consent Obtained/Reviewed and Anes Risks/Benef Reviewed Patient Risk: Low Procedure Risk: Low Assessment/Block/Sedation in SS: Assess/Block/Sedation-SS Anesthetic Plan Anesthetic Plan: MAC: Disposition: Standard PACU
--- NOTE | ~2023-07-27 | FL_ITS ---
EXAMINATION: XR FLUOROSCOPY WITH IMAGES CLINICAL INFORMATION: Intra-articular hip steroid injection. Left hip injection. COMPARISON: None available. TECHNIQUE: Fluoroscopy Supervised By: Dr. Junior Gloria. Fluoroscopy Time: 0.2 minutes. Cumulative Dose: 4.25 mGy. DAP: 0.0715 Gycm2. Images: 2. FINDINGS: Images demonstrate needle placement and contrast injection over the left hip joint FL/FL guidance in OR IMPRESSION: Fluoroscopic guidance for left hip injection.
[2023-07-27 13:05] VITALS: BMI 34.7
--- NOTE | 2023-07-27 14:31 | HO.ANESPROP2 ---
[facility] Active Problems Active Problems: All Active Problems (Updated 05/19/23 @ 12:32 by Amaya Harris MD) Asthma, mild persistent (Acute) Greater trochanteric bursitis of both hips (Acute) Sacroiliac joint pain (Acute) Frequent falls (Acute) Left hip pain (Acute) Encounter for general adult medical examination with abnormal findings (Acute) Osteoarthritis of right glenohumeral joint (Acute) Posterior left knee pain (Acute) Tendinopathy of right shoulder (Acute) Effusion, right knee (Acute) Restless leg syndrome (Acute) Effusion of left knee (Acute) Osteoarthritis of left knee (Acute) Right leg numbness (Acute) Arthritis of right hip (Acute) Anemia (Acute) Status post total knee replacement, right (Acute) Pre-op evaluation (Acute) Osteoarthritis of right knee (Acute) Pain management (Acute) Internal derangement of right knee (Acute) Psoriatic arthropathy (Acute) Acute pain of right knee (Acute) Medicare annual wellness visit, subsequent (Acute) S/P insertion of spinal cord stimulator (Acute) Anxiety, generalized (Acute) Leg pain, bilateral (Acute) Hand paresthesia (Acute) Obesity due to excess calories (Acute) Impingement syndrome of right shoulder (Acute) Grieving (Acute) Skin growth (Acute) Severe major depression (Acute) Flushing (Acute) Psoriatic arthritis (Acute) Chronic GERD (Acute) Difficulty sleeping (Acute) Abdominal pain (Acute) Psoriasis (Acute) Impingement syndrome, shoulder, left (Acute) Rotator cuff tendonitis (Acute) Right shoulder pain (Acute) Bursitis of right shoulder (Acute) Lipid disorder (Acute) DJD (degenerative joint disease) (Acute) Pre-diabetes (Acute) Constipation by delayed colonic transit (Acute) Asthma, moderate (Acute) Sciatica, right side (Acute) Sleeping difficulty (Acute) Periodic limb movement disorder (Acute) Depression, major, in remission (Acute) Chronic GERD (Acute) Postlaminectomy syndrome of cervical region (Acute) Postlaminectomy syndrome of lumbar region (Acute) Chronic pain syndrome (Acute) JOHN positive (Acute) Chest pain (Acute) Past Medical History Medical History History of COVID-19 Chest pain JOHN positive Chronic pain syndrome Postlaminectomy syndrome of lumbar region Postlaminectomy syndrome of cervical region Chronic GERD Depression, major, in remission Periodic limb movement disorder Sleeping difficulty Sciatica, right side Asthma, moderate Constipation by delayed colonic transit Pre-diabetes DJD (degenerative joint disease) Lipid disorder Bursitis of right shoulder Right shoulder pain Spinal stenosis Back pain Fibromyalgia Degenerative disc disease Family History Family History Father No problems noted. Mother No problems noted. Other Mental health disorder Family history of problems with anesthesia: No Surgical History Surgical History History of total right knee replacement History of lumbar fusion S/P placement of nerve stimulator History of sleeve gastrectomy History of esophagogastroduodenoscopy (EGD) H/O colonoscopy History of gastric bypass Hx of cholecystectomy H/O: hysterectomy H/O spinal fusion H/O shoulder surgery History of Problems with Anesthesia: No Social History Social History Household Members: Other Household Members Other:: son Housing: House Are you a primary lead caregiver to a significant other at home: No Do you presently have visiting nurse or other home services: No Alcohol intake: current Alcohol intake frequency: holidays/special occasions only Comment: pts baseline pain is 6/10 Patient Tobacco Use Status: Former Tobacco user Quit Date: 10 years ago Tobacco use type: Cigarette Years Smoked: 30 e-Cigarette/Vaping Use: Never Used Second Hand Smoke Exposure: No Use of substances other than those prescribed or required for medical reasons: Yes Substance Use Type: Marijuana Substance Use Type Other:: CBD gummy Substance Use Frequency: Occasionally Are you DNR?: No Advance Directives: No Advance Directives Information Provided: Yes Advance Directives on File: No service: No Current occupational status: disabled Current occupation: right handed Cognitive needs: No Hearing needs: No Vision needs: Yes Meds Allergies Allergy/AdvReac Type Severity Reaction Status Date / Time adhesive tape [ADHESIVE TAPE] Allergy Severe SKIN TEARS Verified 07/11/23 13:18 pramipexole Allergy Severe Diarrhea Verified 07/11/23 13:18 adalimumab [From Humira] Allergy Intermediate Itching Verified 07/11/23 13:18 carisoprodol [From SOMA] Allergy Intermediate SWELLING, Verified 07/11/23 13:18 RASH cephalexin Allergy Intermediate Itching Verified 07/11/23 13:18 gabapentin Allergy Intermediate leg Verified 07/11/23 13:18 swelling sulfamethoxazole Allergy Intermediate SWELLING,RA Verified 07/11/23 13:18 [From BACTRIM] SH trimethoprim [From BACTRIM] Allergy Intermediate SWELLING,RA Verified 07/11/23 13:18 SH Active Medications: Current Medications Albuterol Sulfate (Albuterol Sulfate (0.083%) 2.5 Mg/3 Ml Vial.Neb) 2.5 mg INHALE ONCE PRN PRN Reason: Shortness of Breath/Wheezing Lactated Ringer's (Lr) 1,000 mls @ 100 mls/hr IVCONT .Q10H [facility] Home Medications Medication Instructions Recorded Confirmed Last Taken Type albuterol sulfate 90 mcg/actuation 2 puff inhalation Q6H PRN 10/13/20 07/25/23 Unknown History aerosol inhaler Shortness Of Breath etanercept 50 mg/mL (1 mL) 50 mg subcut QWEEK 02/04/23 07/25/23 Unknown History subcutaneous cartridge (Enbrel Mini) Exam Height,Weight and Vital Signs: Height 5 ft 4 in Weight 91.654 kg Assessment and Plan Final Anesthetic Review Family History of Problems with Anesthesia: No History of Problems with Anesthesia: No
--- NOTE | 2023-07-27 15:59 | MHC.SHP ---
Pre-Procedural Eval Section A Date of Service: 07/27/23 The patient is an INPATIENT: No Changes since office visit: Yes Patient answered all questions The History & Physical has been completed within 30 days and I have reviewed it.: No Section B Chief Complaint: Pain in left hip Details of Present Illness: as above Relevant Family History (Specify if Yes): No Relevant Social History: None Present Medications: see Short Stay Collaborative assessment Medical History: No relevant PMH History of Previous Operations: No relevant previous surgery Allergies: Allergies Allergy/AdvReac Type Severity Reaction Status Date / Time adhesive tape [ADHESIVE TAPE] Allergy Severe SKIN TEARS Verified 07/11/23 13:18 pramipexole Allergy Severe Diarrhea Verified 07/11/23 13:18 adalimumab [From Humira] Allergy Intermediate Itching Verified 07/11/23 13:18 carisoprodol [From SOMA] Allergy Intermediate SWELLING, Verified 07/11/23 13:18 RASH cephalexin Allergy Intermediate Itching Verified 07/11/23 13:18 gabapentin Allergy Intermediate leg Verified 07/11/23 13:18 swelling sulfamethoxazole Allergy Intermediate SWELLING,RA Verified 07/11/23 13:18 [From BACTRIM] SH trimethoprim [From BACTRIM] Allergy Intermediate SWELLING,RA Verified 07/11/23 13:18 SH Review of Systems Sugical H&P ROS: Negative: Cardiovascular, Respiratory, Neurological, Psychiatric, Hem-Onc, Allergic/Immunologic, Gastrointestinal, Genitourinary, Musculoskeletal, Integumentary, Endocrine and Eyes/Ears/Nose/Throat and Yes, Specify: Constitution (obesity) Exam Surgical H&P Exam: Normal: HEENT, Normal: Heart, Normal: Lungs, Normal: Abdomen, Normal: Skin and Normal: Neurological and Significant Findings: Extremities (OA left hip joint) Plan Diagnosis/Plan: Unchanged I have reviewed the history and physical and performed a pertinent physical examination on my patient. No changes have occurred unless specified. Time Spent With Patient Time: Total time managing care of this patient today ____ minutes.
--- NOTE | 2023-07-27 16:34 | PM.OP ---
Brief Operative Note Date of Service: 07/27/23 Pre-op diagnosis: left hip osteoarthritis Post-op diagnosis: same Procedure: intra-articular left hip steroid injection Surgeon: Junior Gloria MD Anesthesia: MAC Was an Steam Meter Reader used for this Procedure?: No Estimated blood loss (mL): 0 Condition: stable Disposition: PACU
--- NOTE | 2023-07-27 16:34 | W.PM.OPN ---
Operative Note Operative Note Date of Service: 07/27/23 Narrative: Left hip steroid injection. Informed consent was explained to the patient. All questions were explained and answered. The patient was taken inside of the operating room where she was positioned right lateral decubitus on operating table. [employer] monitors were applied and patient was moderately to minimally sedated. . Time-out was performed delineating patient's name and date of , correct site, side, the nature of the procedure, patient's allergy, preoperative antibiotic if needed, need for VT prophylaxis.. All operating room staff was participating in OR time-out procedure. Left hip area of the patient was prepped with ChloraPrep and draped with sterile towels. C-arm was brought over the operating field and picture of left and right lateral views of the bilateral hip joints were delineated on the screen. The smaller joint silhouette was chosen as the target. Projection of the left trochanter to the skin was chosen as the initial needle insertion point. After that the skin and subcutaneous tissues was anesthetized with 2% lidocaine 2.5 mL. 22 gauge 5 in long needle was inserted through the skin and started to advance to the joint space under intermittent lateral and anterior posterior views. When needle entered the capsule of the joint small amount of the contrast was injected delineating intra-articular space. After that treatment solution containing 4 cc of Ropivacaine 0.5% and 40 mg of Kenalog was injected into the joint. The needle was withdrawn sterile dressing was applied.The patient tolerated procedure well. She was awaken and transferred stable to recovery room.
[2023-07-27 17:00] VITALS: BP 94/51; PULSE 81; RESP 21; TEMP 36.2; O2SAT 94
[2023-07-27 17:15] VITALS: BP 102/57; PULSE 77; RESP 16; O2SAT 96
[2023-07-27 17:30] VITALS: BP 112/62; PULSE 72; RESP 16; TEMP 36.6; O2SAT 97
== END 2023-07-27 17:39 | disposition home or self-care (01) ==
PROVIDERS: PCP Internal Medicine; Visit Provider Anesthesiology
PROC: (CPT 20610; principal; 2023-07-27 15:30)
DX: M25.552 Pain in left hip (principal); G89.4 Chronic pain syndrome; M79.7 Fibromyalgia; M96.1 Postlaminectomy syndrome, not elsewhere classified; M53.3 Sacrococcygeal disorders, not elsewhere classified; M19.90 Unspecified osteoarthritis, unspecified site; M70.62 Trochanteric bursitis, left hip; M70.61 Trochanteric bursitis, right hip; R76.0 Raised antibody titer; E75.6 Lipid storage disorder, unspecified; Z79.899 Other long term (current) drug therapy; Z88.2 Allergy status to sulfonamides; Z88.8 Allergy status to other drugs, medicaments and biological substances; Z91.040 Latex allergy status; Z96.82 Presence of neurostimulator; Z98.1 Arthrodesis status; Z98.84 Bariatric surgery status; Z86.16 Personal history of COVID-19; Z98.890 Other specified postprocedural states; Z87.891 Personal history of nicotine dependence
CPT/HCPCS: 20610; J2250; J2704; J2795; J3010; J3301; Q9965; Q9967

== ENCOUNTER → 2023-07-27 11:06 | Outpatient (BNV) | payer MEDICARE, MEDICAID, SELFPAY | PROVIDERS: PCP Internal Medicine; Visit Provider Anesthesiology | DX: M25.552 Pain in left hip (principal) | CPT/HCPCS: 20610; 77002 ==

== ENCOUNTER 2023-08-24 08:59 | Outpatient (AMB) | payer MEDICARE, MEDICAID, SELFPAY ==
--- NOTE | 2023-08-24 09:02 | A.OFFVIS_ITS ---
Intake Vital Signs 08/24/23 09:15 Height 5 ft 4 in Weight 202 lb BMI 34.7 BP 137/62 Blood Pressure Location Lt brachial Position Sitting Respiration 16 Pulse 78 Pulse Source Pulse Oximeter Pulse Oximetry (%) 96 Oxygen Delivery Method Room Air Intake Visit Reasons: S/p (L) Intra-Artic Hip Inj/ NEVRO SCS Re-Program/ Intake Note: Patient comes in for post-op appointment. Reports pain 8.5/10. Allergies adhesive tape [ADHESIVE TAPE] Allergy (Severe, Verified 08/24/23 09:11) SKIN TEARS pramipexole Allergy (Severe, Verified 08/24/23 09:11) Diarrhea adalimumab [From Humira] Allergy (Intermediate, Verified 08/24/23 09:11) Itching carisoprodol [From SOMA] Allergy (Intermediate, Verified 08/24/23 09:11) SWELLING, RASH cephalexin Allergy (Intermediate, Verified 08/24/23 09:11) Itching gabapentin Allergy (Intermediate, Verified 08/24/23 09:11) leg swelling sulfamethoxazole [From BACTRIM] Allergy (Intermediate, Verified 08/24/23 09:11) SWELLING,RASH trimethoprim [From BACTRIM] Allergy (Intermediate, Verified 08/24/23 09:11) SWELLING,RASH HPI HPI Comments History of Present Illness Details Kaylah is back in my office reporting pain in the projection of right sacroiliac joint. She reports that intra-articular left hip steroid injection resulted in good pain relief. Now she reports that most of her pain that was coming from the lowest portion of the lumbar spine on the right projection of the sacroiliac joint. Oc test is positive for pain increase in sacroiliac joint as well as Stinchfield test, pelvic compression test and pelvic distraction test. I offered the patient to go for therapeutic right sacroiliac joint injection. We can not do this procedure as soon as 1 month after a previous left hip steroid injection which was performed on 07/27/2023. Past Procedures: 07/04/23: Left Diagnostic Sacroiliac Deidra nt Injection-30% pain relief for 2 hours 05/09/23: Bilateral Therapeutic Greater Trochanteric Bursa injections-70% ongoing pain relief PRIOR: Patient presents today for follow up for left sided sciatica pain. Patient reports frequent falls for the past year. She had right TKA in June 2022 and injured her left knee, shoulders and back in January 2023 when she fell from [facility] [place] per EMR review. Patient recently seen her PCP for back pain and was prescibed Percocet with minimal to moderate pain relief. She also takes NSAIDs, Asper cream roll-on, ice and heat therapy with partial results. Walking, weight bearing, bending, climbing stairs, cold weather, getting out of car or shower increases her pain. Patient reports NEVRO SCS device has been working well for her post laminectomy syndrome but not covering left leg pain. She reports back pain radiating into her left buttock, left lateral hip and left groin. I could not reproduce pain with SLR testing today. However, she has pain with provocative testing for sacroiliac joint and left hip with groin pain. There is no tenderness along her battery pocket or incisional lines in her back. She also reports mid back pain. We will proceed with updating her back imaging, evaluate SCS status and assess degree of arthritis for left hip. She is interested to receive therapeutic injection to alleviate her pain. Denies any fever, weight changes, bladder or bowel dysfunction, or saddle anesthesia. PRIOR 08/25/22 Dr. Gloria: Kaylah is very pleasant 62 years old female who is my office complaining on pain in the posterior right buttock as well as anterior thigh on the right. She is well-known in this clinic she was treated for low back pain in the past with Nevro spinal cord stimulator. According to the patient she had a fall 3 weeks ago after which the symptoms appeared. She was not sent to any x-rays. Today on physical exam attention was attracted to the fact that patient has discomfort in the projection of the ischial tuberosity as well as pain aggravation in the groin with rotation of the right hip. I will send this patient for right hip x- ray. If there are any arthritic changes I will schedule her for intra-articular right hip steroid injection. PRIOR 02/07/22 Dr. Gloria: Kaylah is 61 years old female who presents in my office today status post 4 months of the implantation of spinal cord stimulator Nevro. She received the device to be treated for symptoms of postlaminectomy syndrome. She reports excellent pain relief better mobility better activities of daily living better social interactions. She is very happy with her machine. However she reports that at the side of the battery she feels some discomfort, she reports that battery became loose. She became more active and she lost some weight. She also reports that when she is walking through the narrow drawers she sometimes he the battery on the doors and it aunts to her discomfort. She does not report difficulty charging the device. Unlikely therefore the device is flipped. I discussed the situation with her today. We can potentially relocated the battery into the loin of her liking from the buttock. But that would require 3 incisions to complete for me. Alternatively she can try some topicals Aspercreme with lidocaine and salicylate. I also recommend her to purchase some bedsore protection pads in the pharmacy [id number] and use it for protection of the device from external trauma. We decided that she will see me in 1 month. REPLACED BY [facility] Medical History History of COVID-19 Chest pain JOHN positive Chronic pain syndrome Postlaminectomy syndrome of lumbar region Postlaminectomy syndrome of cervical region Chronic GERD Depression, major, in remission Periodic limb movement disorder Sleeping difficulty Sciatica, right side Asthma, moderate Constipation by delayed colonic transit Pre-diabetes DJD (degenerative joint disease) Lipid disorder Bursitis of right shoulder Right shoulder pain Spinal stenosis Back pain Fibromyalgia Degenerative disc disease Surgical History History of total right knee replacement History of lumbar fusion S/P placement of nerve stimulator History of sleeve gastrectomy History of esophagogastroduodenoscopy (EGD) H/O colonoscopy History of gastric bypass Hx of cholecystectomy H/O: hysterectomy H/O spinal fusion H/O shoulder surgery Family History Father No problems noted. Mother No problems noted. Other Mental health disorder Social History Household Members: Other Household Members Other:: son Housing: House Are you a primary skin care technician to a significant other at home: No Do you presently have visiting nurse or other home services: No Alcohol intake: current Alcohol intake frequency: holidays/special occasions only Comment: pts baseline pain is 6/10 Patient Tobacco Use Status: Former Tobacco user Quit Date: 10 years ago Tobacco use type: Cigarette Years Smoked: 30 e-Cigarette/Vaping Use: Never Used Second Hand Smoke Exposure: No Substance Use Type: Marijuana service: No Current occupational status: disabled Current occupation: right handed Cognitive needs: No Hearing needs: No Vision needs: Yes Review of Systems Const All systems reviewed & are unremarkable except as noted in HPI and below Physical Exam Vital Signs: Last Vital Signs Pulse 78 08/24/23 09:15 Resp 16 08/24/23 09:15 BP 137/62 08/24/23 09:15 Pulse Ox 96 08/24/23 09:15 Oxygen Delivery Method Room Air 08/24/23 09:15 BMI result Body Mass Index 34.7 General: Appears afebrile. Alert and oriented. Mood and affect appropriate. Follows and participates in conversation appropriately. Respiratory effort is unlabored. No cough. Able to transition from sit to stand unassisted. Ambulates with bilaterally normal heel strike and toe off. Back/Spine/Pelvis Other: Limited lumbar ROM with flexion and extension. Facet loading test positive bilaterally. Oc?s, Pelvic compression and Stinchfield tests are positive on the right, pelvic distraction test is positive on the right, reproduce left groin and left buttock pain. Moderate left groin pain with I/E hip rotations on the left. Mild TTP at GTB bilaterally. Cervical Spine: cervical ROM normal, Cervical spine scars present and No Cervical spine tenderness Thoracic/Lumbar Spine: thoracic and lumbar spine normal to inspection, Thoracic/lumbar spine scar(s), Lasegue's sign negative, straight leg raise negative bilaterally, pain with thoraco-lumbar ROM, paraspinal muscle tenderness, No thoracic spinal tenderness and lumbar spinal tenderness at L5 Pelvis: buttock tenderness on the left Sacroiliac joints: on the right tender, on the left tender to palpation and clara aterally tender to palpation, by compression of iliac crest, by passive hyperextension of lower ext and other (As above) Assessment & Plan Assessment & Plan (1) Postlaminectomy syndrome of lumbar region: Comment: Patient is established with [facility] Code(s): M96.1 - Postlaminectomy syndrome, not elsewhere classified (2) Sacroiliac joint pain: Code(s): M53.3 - Sacrococcygeal disorders, not elsewhere classified (3) Greater trochanteric bursitis of both hips: Code(s): M70.61 - Trochanteric bursitis, right hip; M70.62 - Trochanteric bursitis, left hip (4) Left hip pain: Code(s): M25.552 - Pain in left hip (5) Sacroiliac joint dysfunction of right side: Code(s): M53.3 - Sacrococcygeal disorders, not elsewhere classified Plan Reports good results of intra-articular hip steroid injection which was performed on 07/27/2023. Now reports pain in the back on the right side. SI joint on the right tests are positive. We will schedule this patient after 08/27/2023 for intra-articular right SI joint steroid injection under sedation in the operating room. She will come for re-evaluation of her spinal cord stimulation with Claude ma on Monday08/28/2023. Next appointment with me will be after the SI joint injection on the right. Patient Instructions: I here by testify that I spent 32 minutes in conversation with this patient as w ell as planning her care, evaluating prior injection records, and organizing her note. Coding Level of Care Code Est Pt Level 4 (59704) Diagnoses Postlaminectomy syndrome of lumbar region M96.1 Sacroiliac joint pain M53.3 Greater trochanteric bursitis of both hips M70.61; M70.62 Left hip pain M25.552 Sacroiliac joint dysfunction of right side M53.3
[2023-08-24 09:15] VITALS: BP 137/62; PULSE 78; RESP 16; O2SAT 96; BMI 34.7
== END 2023-08-24 09:54 | disposition home or self-care (01) ==
PROVIDERS: PCP Internal Medicine; Visit Provider Anesthesiology
DX: M96.1 Postlaminectomy syndrome, not elsewhere classified (principal); M53.3 Sacrococcygeal disorders, not elsewhere classified; M70.61 Trochanteric bursitis, right hip; M70.62 Trochanteric bursitis, left hip; M25.552 Pain in left hip
CPT/HCPCS: 99214

== ENCOUNTER → 2023-08-24 08:59 | Outpatient (BNVA) | payer MEDICARE, MEDICAID, SELFPAY | PROVIDERS: PCP Internal Medicine; Visit Provider Anesthesiology | DX: M96.1 Postlaminectomy syndrome, not elsewhere classified (principal); M53.3 Sacrococcygeal disorders, not elsewhere classified; M70.61 Trochanteric bursitis, right hip; M70.62 Trochanteric bursitis, left hip; M25.552 Pain in left hip | CPT/HCPCS: 99212 ==

== ENCOUNTER → 2023-08-28 09:55 | Outpatient (BNVA) | payer MEDICARE, MEDICAID, SELFPAY | PROVIDERS: PCP Internal Medicine; Visit Provider Anesthesiology ==

== ENCOUNTER 2023-08-31 09:42 | Outpatient (REF) | payer MEDICARE, MEDICAID, SELFPAY ==
--- NOTE | ~2023-08-31 | XR_ITS ---
EXAMINATION: XR THORACIC SPINE CLINICAL INFORMATION: Reason for Exam T85.192A - Other mechanical complication of implanted electronic stimulator. COMPARISON: Thoracic spine radiographs 04/17/2023 TECHNIQUE: 3 views of the thoracic spine FINDINGS: Vertebral body heights are maintained. Alignment is maintained. Mild to moderate multilevel degenerative disc disease with loss of disc space height. Upper abdominal surgical clips. Spinal cord stimulator leads tips terminating at the level of T8-T9. Anterior and posterior cervical fusion hardware is suboptimally evaluated. XR/XR thoracic spine 3V IMPRESSION: 1. Spinal cord stimulator leads tips terminating at the level of T8-T9. 2. Anterior and posterior cervical fusion hardware is suboptimally evaluated. 3. Mild to moderate multilevel degenerative disc disease with loss of disc space height.
== END 2023-08-31 09:43 | disposition home or self-care (01) ==
LOC: HO.HMGCX 09:42
PROVIDERS: PCP Internal Medicine; Visit Provider Anesthesiology
DX: T85.192A Other mechanical complication of implanted electronic neurostimulator of spinal cord electrode (lead), initial encounter (principal)
CPT/HCPCS: 72072

== ENCOUNTER 2023-09-01 11:45 | Day surgery (SDC) | payer MEDICARE, MEDICAID, SELFPAY ==
--- NOTE | 2023-08-31 10:47 | P.CONAN_ITS ---
Documented by User: Mary Hung NP 08/31/23 10:49 HPI - Anesthesia Eval Consult details Narrative: 63yo F for Right Therapeutic Sacroiliac Joint Steroid Injection s/p Left Intra-Articular Hip Steroid Injection 07/2023 with MAC PMFSH Active Problems Active Problems: All Active Problems (Updated 08/28/23 @ 10:35 by Junior Gloria MD) Spinal cord stimulator dysfunction (Acute) Sacroiliac joint dysfunction of right side (Acute) Asthma, mild persistent (Acute) Greater trochanteric bursitis of both hips (Acute) Sacroiliac joint pain (Acute) Frequent falls (Acute) Left hip pain (Acute) Encounter for general adult medical examination with abnormal findings (Acute) Osteoarthritis of right glenohumeral joint (Acute) Posterior left knee pain (Acute) Tendinopathy of right shoulder (Acute) Effusion, right knee (Acute) Restless leg syndrome (Acute) Effusion of left knee (Acute) Osteoarthritis of left knee (Acute) Right leg numbness (Acute) Arthritis of right hip (Acute) Anemia (Acute) Status post total knee replacement, right (Acute) Pre-op evaluation (Acute) Osteoarthritis of right knee (Acute) Pain management (Acute) Internal derangement of right knee (Acute) Psoriatic arthropathy (Acute) Acute pain of right knee (Acute) Medicare annual wellness visit, subsequent (Acute) S/P insertion of spinal cord stimulator (Acute) Anxiety, generalized (Acute) Leg pain, bilateral (Acute) Hand paresthesia (Acute) Obesity due to excess calories (Acute) Impingement syndrome of right shoulder (Acute) Grieving (Acute) Skin growth (Acute) Severe major depression (Acute) Flushing (Acute) Psoriatic arthritis (Acute) Chronic GERD (Acute) Difficulty sleeping (Acute) Abdominal pain (Acute) Psoriasis (Acute) Impingement syndrome, shoulder, left (Acute) Rotator cuff tendonitis (Acute) Right shoulder pain (Acute) Bursitis of right shoulder (Acute) Lipid disorder (Acute) DJD (degenerative joint disease) (Acute) Pre-diabetes (Acute) Constipation by delayed colonic transit (Acute) Asthma, moderate (Acute) Sciatica, right side (Acute) Sleeping difficulty (Acute) Periodic limb movement disorder (Acute) Depression, major, in remission (Acute) Chronic GERD (Acute) Postlaminectomy syndrome of cervical region (Acute) Postlaminectomy syndrome of lumbar region (Acute) Chronic pain syndrome (Acute) JOHN positive (Acute) Chest pain (Acute) Past Medical History Medical History History of COVID-19 Chest pain JOHN positive Chronic pain syndrome Postlaminectomy syndrome of lumbar region Postlaminectomy syndrome of cervical region Chronic GERD Depression, major, in remission Periodic limb movement disorder Sleeping difficulty Sciatica, right side Asthma, moderate Constipation by delayed colonic transit Pre-diabetes DJD (degenerative joint disease) Lipid disorder Bursitis of right shoulder Right shoulder pain Spinal stenosis Back pain Fibromyalgia Degenerative disc disease Family History Family History Father No problems noted. Mother No problems noted. Other Mental health disorder Family history of problems with anesthesia: No Surgical History Surgical History History of total right knee replacement History of lumbar fusion S/P placement of nerve stimulator History of sleeve gastrectomy History of esophagogastroduodenoscopy (EGD) H/O colonoscopy History of gastric bypass Hx of cholecystectomy H/O: hysterectomy H/O spinal fusion H/O shoulder surgery History of Problems with Anesthesia: No Social History Social History Household Members: Other Household Members Other:: son Housing: House Are you a primary respiratory care assistant to a significant other at home: No Do you presently have visiting nurse or other home services: No Alcohol intake: current Alcohol intake frequency: holidays/special occasions only Comment: pts baseline pain is 6/10 Patient Tobacco Use Status: Former Tobacco user Quit Date: 10 years ago Tobacco use type: Cigarette Years Smoked: 30 e-Cigarette/Vaping Use: Never Used Second Hand Smoke Exposure: No Use of substances other than those prescribed or required for medical reasons: Yes Substance Use Type: Marijuana Substance Use Type Other:: THC gummies for sleep Are you DNR?: No Advance Directives: No Advance Directives Information Provided: Yes service: No Current occupational status: disabled Current occupation: right handed Cognitive needs: No Hearing needs: No Vision needs: Yes Meds Allergies Allergy/AdvReac Type Severity Reaction Status Date / Time adhesive tape [ADHESIVE TAPE] Allergy Severe SKIN TEARS Verified 09/01/23 12:24 pramipexole Allergy Severe Diarrhea Verified 09/01/23 12:24 adalimumab [From Humira] Allergy Intermediate Itching Verified 09/01/23 12:24 carisoprodol [From SOMA] Allergy Intermediate SWELLING, Verified 09/01/23 12:24 RASH cephalexin Allergy Intermediate Itching Verified 09/01/23 12:24 gabapentin Allergy Intermediate leg Verified 09/01/23 12:24 swelling sulfamethoxazole Allergy Intermediate SWELLING,RA Verified 09/01/23 12:24 [From BACTRIM] SH trimethoprim [From BACTRIM] Allergy Intermediate SWELLING,RA Verified 09/01/23 12:24 SH Home Medications Medication Instructions Recorded Confirmed Last Taken Type albuterol sulfate 90 mcg/actuation 2 puff inhalation Q6H PRN 10/13/20 09/01/23 Unknown History aerosol inhaler Shortness Of Breath etanercept 50 mg/mL (1 mL) 50 mg subcut QWEEK 02/04/23 09/01/23 Unknown History subcutaneous cartridge (Enbrel Mini) Exam Height,Weight and Vital Signs: Height 5 ft 4 in Weight 90.718 kg Pertinent Lab Results Pertinent Lab Results: Laboratory Tests 02/16/23 09:11 WBC 11.6 H Hgb 13.0 Hct 42.4 Plt Count 323 Sodium 141 Potassium 4.2 Chloride 106 Carbon Dioxide 23 BUN 12 Creatinine 0.65 Airway Neck ROM: Limited (but extension ok) Loose/Missing/Broken Teeth: Yes (Broken tooth bottom front. Many missing. Denies loose) Assessment and Plan Assessment Anesthesia Assessment: Chart Reviewed Final Anesthetic Review Family History of Problems with Anesthesia: No History of Problems with Anesthesia: No Documented by User: Binh Meeks MD 09/01/23 14:05 [facility] Past Medical History Medical History History of COVID-19 Chest pain JOHN positive Chronic pain syndrome Postlaminectomy syndrome of lumbar region Postlaminectomy syndrome of cervical region Chronic GERD Depression, major, in remission Periodic limb movement disorder Sleeping difficulty Sciatica, right side Asthma, moderate Constipation by delayed colonic transit Pre-diabetes DJD (degenerative joint disease) Lipid disorder Bursitis of right shoulder Right shoulder pain Spinal stenosis Back pain Fibromyalgia Degenerative disc disease Family History Family History Father No problems noted. Mother No problems noted. Other Mental health disorder Family history of problems with anesthesia: No Surgical History Surgical History History of total right knee replacement History of lumbar fusion S/P placement of nerve stimulator History of sleeve gastrectomy History of esophagogastroduodenoscopy (EGD) H/O colonoscopy History of gastric bypass Hx of cholecystectomy H/O: hysterectomy H/O spinal fusion H/O shoulder surgery Social History Social History Household Members: Other Household Members Other:: son Housing: House Are you a primary respiratory care assistant to a significant other at home: No Do you presently have visiting nurse or other home services: No Alcohol intake: current Alcohol intake frequency: holidays/special occasions only Comment: pts baseline pain is 6/10 Patient Tobacco Use Status: Former Tobacco user Quit Date: 10 years ago Tobacco use type: Cigarette Years Smoked: 30 e-Cigarette/Vaping Use: Never Used Second Hand Smoke Exposure: No Use of substances other than those prescribed or required for medical reasons: Yes Substance Use Type: Marijuana Substance Use Type Other:: THC gummies for sleep Are you DNR?: No Advance Directives: No Advance Directives Information Provided: Yes service: No Current occupational status: disabled Current occupation: right handed Cognitive needs: No Hearing needs: No Vision needs: Yes Meds Allergies Allergy/AdvReac Type Severity Reaction Status Date / Time adhesive tape [ADHESIVE TAPE] Allergy Severe SKIN TEARS Verified 09/01/23 12:24 pramipexole Allergy Severe Diarrhea Verified 09/01/23 12:24 adalimumab [From Humira] Allergy Intermediate Itching Verified 09/01/23 12:24 carisoprodol [From SOMA] Allergy Intermediate SWELLING, Verified 09/01/23 12:24 RASH cephalexin Allergy Intermediate Itching Verified 09/01/23 12:24 gabapentin Allergy Intermediate leg Verified 09/01/23 12:24 swelling sulfamethoxazole Allergy Intermediate SWELLING,RA Verified 09/01/23 12:24 [From BACTRIM] SH trimethoprim [From BACTRIM] Allergy Intermediate SWELLING,RA Verified 09/01/23 12:24 SH Home Medications Medication Instructions Recorded Confirmed Last Taken Type albuterol sulfate 90 mcg/actuation 2 puff inhalation Q6H PRN 10/13/20 09/01/23 Unknown History aerosol inhaler Shortness Of Breath etanercept 50 mg/mL (1 mL) 50 mg subcut QWEEK 02/04/23 09/01/23 Unknown History subcutaneous cartridge (Enbrel Mini) Exam Airway Mallampati Class: II TM Dist: <=3cm Neck ROM: Full (but extension ok) Heart: rrr Lungs: cta b/l Assessment and Plan Final Anesthetic Review Family History of Problems with Anesthesia: No NPO: Yes ASA Class: III Final Preanesthetic Review: No Changes in Pt Med Stat, Consent Obtained/Reviewed and Anes Risks/Benef Reviewed Patient Risk: Intermediate Procedure Risk: Intermediate Anesthetic Plan Anesthetic Plan: MAC: Disposition: Standard PACU
--- NOTE | ~2023-09-01 | FL_ITS ---
EXAMINATION: XR FLUOROSCOPY WITH IMAGES CLINICAL INFORMATION: Therapeutic sacroiliac joint steroid injection. COMPARISON: Fluoroscopy images from 07/04/2023. TECHNIQUE: Fluoroscopy Supervised By: Dr. Gloria. Fluoroscopy Time: 0.1 min Cumulative Dose: 2.06 mGy. DAP: 0.522 Gycm2. Images: 2 images are saved into the electronic picture archive. FL/FL guidance in OR FINDINGS AND IMPRESSION: Prior surgical spinal fusion at L5-S1 level. Fluoroscopic imaging equipment utilized by Dr. Gloria during injection of contrast/steroid into right sacroiliac joint.
[2023-09-01 12:21] VITALS: BMI 35.5
[2023-09-01 12:57] VITALS: BP 126/69; PULSE 71; RESP 16; TEMP 36.8; O2SAT 97
[2023-09-01] MEDS: Lactated Ringers 1,000 ML 100 ML IVCONT (13:08)
--- NOTE | 2023-09-01 14:04 | MHC.SHP ---
Pre-Procedural Eval Section A - 24 Hr Update-Section A only Date of Service: 09/01/23 The patient is an INPATIENT: No Changes since office visit: Yes Patient answered all questions The patient has been examined within 24 hours of the surgical procedure. The History & Physical has been completed within 30 days and I have reviewed it.: No Section B - Complete if H&P > 30 days Chief Complaint: Sacrococcygeal disorders, not elsewhere classified Details of Present Illness: as above Relevant Family History (Specify if Yes): No Relevant Social History: None Present Medications: see Short Stay [facility] assessment Medical History: No relevant PMH History of Previous Operations: No relevant previous surgery Allergies: Allergies Allergy/AdvReac Type Severity Reaction Status Date / Time adhesive tape [ADHESIVE TAPE] Allergy Severe SKIN TEARS Verified 09/01/23 12:24 pramipexole Allergy Severe Diarrhea Verified 09/01/23 12:24 adalimumab [From Humira] Allergy Intermediate Itching Verified 09/01/23 12:24 carisoprodol [From SOMA] Allergy Intermediate SWELLING, Verified 09/01/23 12:24 RASH cephalexin Allergy Intermediate Itching Verified 09/01/23 12:24 gabapentin Allergy Intermediate leg Verified 09/01/23 12:24 swelling sulfamethoxazole Allergy Intermediate SWELLING,RA Verified 09/01/23 12:24 [From BACTRIM] SH trimethoprim [From BACTRIM] Allergy Intermediate SWELLING,RA Verified 09/01/23 12:24 SH Review of Systems Sugical H&P ROS: Negative: Cardiovascular, Respiratory, Neurological, Psychiatric, Hem-Onc, Allergic/Immunologic, Gastrointestinal, Genitourinary, Musculoskeletal, Integumentary, Endocrine and Eyes/Ears/Nose/Throat and Yes, Specify: Constitution (obesity) Exam Surgical H&P Exam: Normal: HEENT, Normal: Heart, Normal: Lungs, Normal: Abdomen, Normal: Skin and Normal: Neurological and Significant Findings: Extremities (OA left hip joint) Plan Diagnosis/Plan: Unchanged I have reviewed the history and physical and performed a pertinent physical examination on my patient. No changes have occurred unless specified. Time Spent With Patient Time: Total time managing care of this patient today _5___ minutes.
--- NOTE | 2023-09-01 14:22 | W.PM.OPN ---
Operative Note Operative Note Date of Service: 09/01/23 Narrative: Right sacroiliac joint steroid injection. Informed consent was explained thoroughly to the patient. All questions about benefits and risks for the procedure were answered. Patient came to the operating room and was positioned prone on the operating table with the pillow under the abdomen. ASA monitors were applied and patient was moderately sedated. Time out was performed delineating name and of the patient, allergies and the nature of the procedure. The lower back and buttocks of the patient were prepped with ChloraPrep prepped and draped with sterile utility towels. C-arm was brought over the operating field and sq picture of patient's pelvis was demonstrated on the screen. For the right joint tilting C-arm contralateral to the site of the joint the most posterior portion of the joints was superimposed with anterior silhouette of the joint. Skin was injected in the projection of the joint slightly medial to the location of the joint with 25 gauge 1/2 inch needle using local lidocaine 2% .After that 22 gauge 3 and 1/2 inch needle was driven to the right joint in tunnel vision fashion. When needle entered the joint capsule injection of the contrast was performed demonstrating intra-articular and minimally periarticular spread of the contrast. After that 4 cc. of ropivacaine 0.5% mixed with Kenalog 40 mg was injected into the joint. Upon completion of the injections the needle was removed Sterile dressing was applied. Upon completion of the injection patient was taken outside of the operating room to the recovery room where recovered uneventfully.
--- NOTE | 2023-09-01 14:43 | P.BOP_ITS ---
Brief Operative Note Date of Service: 09/01/23 Pre-op diagnosis: Sacroiliitis, right sacroiliac joint pain Post-op diagnosis: same Procedure: Sacroiliac joint injection with steroids. Surgeon: Junior Gloria MD Anesthesia: MAC Was an Metal Organ Pipe Maker used for this Procedure?: No Estimated blood loss (mL): 0 Condition: stable Disposition: PACU
[2023-09-01 14:49] VITALS: BP 100/59; PULSE 78; RESP 14; TEMP 36.7; O2SAT 94
[2023-09-01 15:05] VITALS: BP 116/65; PULSE 67; RESP 0; TEMP 36.6; O2SAT 99
== END 2023-09-01 15:28 | disposition home or self-care (01) ==
PROVIDERS: PCP Internal Medicine; Visit Provider Anesthesiology
PROC: 3E0U33Z Introduction of Anti-inflammatory into Joints, Percutaneous Approach (ICD-10-PCS; CPT 27096; principal; 2023-09-01 13:40)
DX: M53.3 Sacrococcygeal disorders, not elsewhere classified (principal); M70.61 Trochanteric bursitis, right hip
CPT/HCPCS: G0260; J2250; J2704; J2795; J3010; J3301; Q9967

== ENCOUNTER → 2023-09-01 11:45 | Outpatient (BNV) | payer MEDICARE, MEDICAID, SELFPAY | PROVIDERS: PCP Internal Medicine; Visit Provider Anesthesiology | DX: M53.3 Sacrococcygeal disorders, not elsewhere classified (principal) | CPT/HCPCS: 27096 ==

== ENCOUNTER 2023-09-21 10:37 | Outpatient (AMB) | payer MEDICARE, MEDICAID, SELFPAY ==
[2023-09-21 11:44] VITALS: BP 130/82; PULSE 80; O2SAT 97; BMI 35.1
--- NOTE | 2023-09-21 11:44 | AM.OFFWIN_ITS ---
Intake Vital Signs 09/21/23 11:44 Height 5 ft 4 in Weight 204 lb 6 oz BMI 35.1 BP 130/82 Blood Pressure Location Lt brachial Position Sitting Pulse 80 Pulse Source Pulse Oximeter Pulse Oximetry (%) 97 Oxygen Delivery Method Room Air Intake Visit Reasons: EST/lump under right side ribs(lobby) Intake Note: Patient here for lump under right rib cage that has been present for about 1 year that comes and goes. Patient Tobacco Use Status: Former Tobacco user Quit Date: 10 years ago Allergies adhesive tape [ADHESIVE TAPE] Allergy (Severe, Verified 09/21/23 11:48) SKIN TEARS pramipexole Allergy (Severe, Verified 09/21/23 11:48) Diarrhea adalimumab [From Humira] Allergy (Intermediate, Verified 09/21/23 11:48) Itching carisoprodol [From SOMA] Allergy (Intermediate, Verified 09/21/23 11:48) SWELLING, RASH cephalexin Allergy (Intermediate, Verified 09/21/23 11:48) Itching gabapentin Allergy (Intermediate, Verified 09/21/23 11:48) leg swelling sulfamethoxazole [From BACTRIM] Allergy (Intermediate, Verified 09/21/23 11:48) SWELLING,RASH trimethoprim [From BACTRIM] Allergy (Intermediate, Verified 09/21/23 11:48) SWELLING,RASH Do you need a note to return to daycare/school/sports/work: No HPI HPI Comments History of Present Illness Details 63 y/o female patient who presents to [facility] in clinic with c/o lump under right side rib cage x 1 year. Reports pain with bending and touching. [facility] Medical History History of COVID-19 Chest pain JOHN positive Chronic pain syndrome Postlaminectomy syndrome of lumbar region Postlaminectomy syndrome of cervical region Chronic GERD Depression, major, in remission Periodic limb movement disorder Sleeping difficulty Sciatica, right side Asthma, moderate Constipation by delayed colonic transit Pre-diabetes DJD (degenerative joint disease) Lipid disorder Bursitis of right shoulder Right shoulder pain Spinal stenosis Back pain Fibromyalgia Degenerative disc disease Surgical History History of total right knee replacement History of lumbar fusion S/P placement of nerve stimulator History of sleeve gastrectomy History of esophagogastroduodenoscopy (EGD) H/O colonoscopy History of gastric bypass Hx of cholecystectomy H/O: hysterectomy H/O spinal fusion H/O shoulder surgery Family History Father No problems noted. Mother No problems noted. Other Mental health disorder Social History Household Members: Other Household Members Other:: son Housing: House Are you a primary health care administrator to a significant other at home: No Do you presently have visiting nurse or other home services: No Alcohol intake: current Alcohol intake frequency: holidays/special occasions only Comment: pts baseline pain is 6/10 Patient Tobacco Use Status: Former Tobacco user Quit Date: 10 years ago Tobacco use type: Cigarette Years Smoked: 30 e-Cigarette/Vaping Use: Never Used Second Hand Smoke Exposure: No Substance Use Type: Marijuana service: No Current occupational status: disabled Current occupation: right handed Cognitive needs: No Hearing needs: No Vision needs: Yes Review of Systems Const All systems reviewed & are unremarkable except as noted in HPI and below Physical Exam Vital Signs: Last Vital Signs Pulse 80 09/21/23 11:44 BP 130/82 09/21/23 11:44 Pulse Ox 97 09/21/23 11:44 Oxygen Delivery Method Room Air 09/21/23 11:44 BMI result Body Mass Index 35.1 Const General: comfortable and no acute distress Orientation/consciousness: patient oriented x3 HEENT Head: Yes normocephalic Chest Chest palpation & inspection: normal inspection of the chest Resp Effort & Inspection: normal respiratory effort GI Inspection: Yes normal to inspection and No distended Palpation (GI): Soft to palpation and No hepatosplenomegaly present Auscultation: normal bowel sounds Neuro General: patient oriented x3 Assessment & Plan Assessment & Plan (1) Right upper quadrant abdominal pain: Code(s): R10.11 - Right upper quadrant pain Plan: - Unable to palpate any masses or lumps - Exam WNL - Mild tenderness Right sided Rib cage. - F/U with PCP for follow up. Coding Level of Care Code Est Pt Level 3 (27668) Diagnoses Right upper quadrant abdominal pain R10.11 Time Spent (min) 10
== END 2023-09-21 12:19 | disposition home or self-care (01) ==
PROVIDERS: PCP Internal Medicine; Visit Provider Nurse Practitioner Family
DX: R10.11 Right upper quadrant pain (principal)
CPT/HCPCS: 99213

== ENCOUNTER 2023-10-03 10:35 | Outpatient (AMB) | payer MEDICARE, MEDICAID, SELFPAY ==
[2023-10-03 10:36] VITALS: BP 110/68; PULSE 95; O2SAT 96; BMI 34.5
--- NOTE | 2023-10-03 10:36 | MHC.PC.OV ---
Vital Signs 10/03/23 10:36 Height 5 ft 4 in Weight 201 lb 3 oz BMI 34.5 BP 110/68 Blood Pressure Location Rt brachial Position Sitting Pulse 95 Pulse Source Pulse Oximeter Pulse Oximetry (%) 96 Oxygen Delivery Method Room Air Intake Visit Reasons: follow up from walk in Allergies adhesive tape [ADHESIVE TAPE] Allergy (Severe, Verified 10/03/23 10:36) SKIN TEARS pramipexole Allergy (Severe, Verified 10/03/23 10:36) Diarrhea adalimumab [From Humira] Allergy (Intermediate, Verified 10/03/23 10:36) Itching carisoprodol [From SOMA] Allergy (Intermediate, Verified 10/03/23 10:36) SWELLING, RASH cephalexin Allergy (Intermediate, Verified 10/03/23 10:36) Itching gabapentin Allergy (Intermediate, Verified 10/03/23 10:36) leg swelling sulfamethoxazole [From BACTRIM] Allergy (Intermediate, Verified 10/03/23 10:36) SWELLING,RASH trimethoprim [From BACTRIM] Allergy (Intermediate, Verified 10/03/23 10:36) SWELLING,RASH Medication List - Last Reconciled 10/03/23 by Amaya Harris MD acetaminophen 650 mg (2 x 325 mg) PO Q6H PRN 30 days albuterol sulfate 90 mcg/actuation 2 puffs inhalation Q6H PRN cholecalciferol (vitamin D3) 50 mcg PO DAILY 90 days clonazepam 1 mg PO BEDTIME 90 days duloxetine 60 mg PO DAILY omeprazole 20 mg PO BID PRN quetiapine (Seroquel) 50 mg (2 x 25 mg) PO BEDTIME 90 days simvastatin 40 mg PO BEDTIME 90 days walker Folding Front wheeled walker Tobacco use date assessed: 10/03/23 Fall risk assessment: 2 + Falls in past year Last assessed Fall Risk: 10/03/23 Dental Screening Dental Screen Date: 10/03/23 Did you have a dental visit in the last 12 months?: No Did you have a dental problem in the last 6 months where you did not have access to dental care?: No Was dental information given to patient?: No HPI follow up from walk in HPI Details Patient is a 63-year-old female came today to talk about discomfort right upper quadrant which has been happening off and the past 1 year Patient says that she just do not feel well, sometimes when she moves she feels pain right upper quadrant She also have a chronic back pain and is currently seeing back specialist Patient suffers from major depression and anxiety and is taking psychiatrist in on number of psychiatric medications She is prediabetic and has lipid disorder Patient is taking simvastatin 40 mg, at omeprazole 20 mg Has not been seen since April of last year was supposed to come in for 4 month follow-up I have ordered ultrasound abdomen Labs to be done today Patient is to return in 2 weeks for follow-up She does not have any nausea vomiting or diarrhea, abdomen exam is benign except discomfort right upper quadrant Patient have a history of cholecystectomy. [facility] Medical History History of COVID-19 Chest pain JOHN positive Chronic pain syndrome Postlaminectomy syndrome of lumbar region Postlaminectomy syndrome of cervical region Chronic GERD Depression, major, in remission Periodic limb movement disorder Sleeping difficulty Sciatica, right side Asthma, moderate Constipation by delayed colonic transit Pre-diabetes DJD (degenerative joint disease) Lipid disorder Bursitis of right shoulder Right shoulder pain Spinal stenosis Back pain Fibromyalgia Degenerative disc disease Surgical History History of total right knee replacement History of lumbar fusion S/P placement of nerve stimulator History of sleeve gastrectomy History of esophagogastroduodenoscopy (EGD) H/O colonoscopy History of gastric bypass Hx of cholecystectomy H/O: hysterectomy H/O spinal fusion H/O shoulder surgery Family History Father No problems noted. Mother No problems noted. Other Mental health disorder Social History Household Members: Other Household Members Other:: son Housing: House Are you a primary livestock caretaker to a significant other at home: No Do you presently have visiting nurse or other home services: No Alcohol intake: current Alcohol intake frequency: holidays/special occasions only Comment: pts baseline pain is 6/10 Patient Tobacco Use Status: Former Tobacco user Quit Date: 10 years ago Tobacco use type: Cigarette Years Smoked: 30 e-Cigarette/Vaping Use: Never Used Second Hand Smoke Exposure: No Substance Use Type: Marijuana service: No Current occupational status: disabled Current occupation: right handed Cognitive needs: No Hearing needs: No Vision needs: Yes Questionnaire Thrive Questionnaire Date Thrive assessed: 08/19/22 AUDIT C Alcohol Use Questionnaire (AUDIT-C) 1. How often do you have a drink containing alcohol?: Never 3. How often do you have six or more drinks on one occasion?: Never Total Score: 0 Score Reviewed/Action Taken: Yes CATARINA-7 AMB Questionnaire CATARINA-7 Date CATARINA - 7 assessed: 08/19/22 Source: Developed by Drs. Andrew Lamb, Julia Olivas, Alfonso Silva and colleagues, with an educational elvia from [employer]. Review of Systems Const Denies chills and Denies fever(s) ENT Denies epistaxis and Denies nasal discharge Card Denies chest pain Resp Denies chest congestion, Denies cough and Denies hemoptysis GI Denies diarrhea and Denies nausea Skin/Breast Denies rash Neuro Reports no additional complaints Psych Reports no additional complaints Endo Reports no additional complaints Physical exam (Primary Care) Vital Signs: Last Vital Signs Pulse 95 10/03/23 10:36 BP 110/68 10/03/23 10:36 Pulse Ox 96 10/03/23 10:36 Oxygen Delivery Method Room Air 10/03/23 10:36 BMI result Body Mass Index 34.5 Tobacco/Smoking Status: Tobacco use Status Tobacco use date assessed 10/03/23 10/03/23 10:48 Patient Tobacco Use Status Former Tobacco user 10/03/23 10:48 Tobacco use type Cigarette 10/03/23 10:48 e-Cigarette/Vaping Use Never Used 10/03/23 10:48 Thrive Assessment: Date of Thrive Assessment Date Thrive assessed 08/19/22 10/03/23 10:48 Const General: cooperative, comfortable and no acute distress Orientation/consciousness: patient oriented x3 HENMT Head: Yes normocephalic Eyes General: appearance normal, both eyes and all related structures Neck Neck: Yes supple Resp Effort & Inspection: normal respiratory effort, no cough and no stridor Cardio Rhythm: regular rhythm Heart sounds: S1 normal heart sound present and S2 normal heart sound present GI Abdomen image: 1. Discomfort with pressure, no guarding no rebound Skin General skin exam: turgor normal Neuro General: patient oriented x3, tone normal and moves all extremities Extrem Right lower extremity: no edema Left lower extremity: no edema Assessment and Plan Assessment & Plan (1) Right upper quadrant abdominal pain: Code(s): R10.11 - Right upper quadrant pain (2) Pre-diabetes: Comment: Diet-controlled Code(s): R73.03 - Prediabetes (3) Asthma, moderate: Code(s): J45.909 - Unspecified asthma, uncomplicated Qualifiers: Asthma complication type: uncomplicated Asthma persistence: persistent Qualified Code(s): J45.40 - Moderate persistent asthma, uncomplicated (4) Chronic GERD: Code(s): K21.9 - Gastro-esophageal reflux disease without esophagitis (5) Chronic pain syndrome: Code(s): G89.4 - Chronic pain syndrome (6) Lipid disorder: Code(s): E78.9 - Disorder of lipoprotein metabolism, unspecified Plan Patient is a 63-year-old female came today to talk about discomfort right upper quadrant which has been happening off and the past 1 year Patient says that she just do not feel well, sometimes when she moves she feels pain right upper quadrant She also have a chronic back pain and is currently seeing back specialist Patient suffers from major depression and anxiety and is taking psychiatrist in on number of psychiatric medications She is prediabetic and has lipid disorder Patient is taking simvastatin 40 mg, at omeprazole 20 mg Has not been seen since April of last year was supposed to come in for 4 month follow-up I have ordered ultrasound abdomen Labs to be done today Patient is to return in 2 weeks for follow-up She does not have any nausea vomiting or diarrhea, abdomen exam is benign except discomfort right upper quadrant Patient have a history of cholecystectomy. Orders: Orders Complete Blood Count Auto Diff Today E78.9 - Disorder of lipoprotein metabolism, unspecified, G89.4 - Chronic pain syndrome, J45.909 - Unspecified asthma, uncomplicated, K21.9 - Gastro-esophageal reflux disease without esophagitis, R73.03 - Prediabetes Comprehensive Met. Panel Today E78.9 - Disorder of lipoprotein metabolism, unspecified, G89.4 - Chronic pain syndrome, J45.909 - Unspecified asthma, uncomplicated, K21.9 - Gastro-esophageal reflux disease without esophagitis, R10.11 - Right upper quadrant pain, R73.03 - Prediabetes US abdomen complete Today R10.11 - Right upper quadrant pain LDL Cholesterol Direct Today E78.9 - Disorder of lipoprotein metabolism, unspecified, G89.4 - Chronic pain syndrome, J45.909 - Unspecified asthma, uncomplicated, K21.9 - Gastro-esophageal reflux disease without esophagitis, R10.11 - Right upper quadrant pain, R73.03 - Prediabetes Hemoglobin A1c Today E78.9 - Disorder of lipoprotein metabolism, unspecified, G89.4 - Chronic pain syndrome, J45.909 - Unspecified asthma, uncomplicated, K21.9 - Gastro-esophageal reflux disease without esophagitis, R10.11 - Right upper quadrant pain, R73.03 - Prediabetes Coding Level of Care Code Est Pt Level 4 (32369) Diagnoses Right upper quadrant abdominal pain R10.11 Pre-diabetes R73.03 Moderate persistent asthma without complication J45.40 Asthma complication type: uncomplicated Asthma persistence: persistent Chronic GERD K21.9 Chronic pain syndrome G89.4 Lipid disorder E78.9
== END 2023-10-03 11:14 | disposition home or self-care (01) ==
PROVIDERS: PCP Internal Medicine; Visit Provider Internal Medicine
DX: R10.11 Right upper quadrant pain (principal); R73.03 Prediabetes; J45.40 Moderate persistent asthma, uncomplicated; K21.9 Gastro-esophageal reflux disease without esophagitis; G89.4 Chronic pain syndrome; E78.9 Disorder of lipoprotein metabolism, unspecified
CPT/HCPCS: 99214

== ENCOUNTER 2023-10-03 11:05 | Outpatient (REF) | payer MEDICARE, MEDICAID, SELFPAY ==
[2023-10-03 13:16] LABS: MANUAL DIFF FLAG NO
[2023-10-03 13:31] LABS: Basophils Absolute Auto 0.1 X10*3/uL (0.0-0.2); Basophils Percent Auto 1.2 % (0-2); Eosinophils Absolute Auto 0.3 X10*3/uL (0.0-0.4); Eosinophils Percent Auto 2.6 % (0-4); Hematocrit 42.7 % (37.0-47.0); Hemoglobin 13.4 g/dl (12.0-16.0); Imm Gran Abs Auto 0.11 X10*3/uL (0.00-0.03); Lymphocytes Absolute Auto 2.5 X10*3/uL (1.2-4.9); Lymphocytes Percent Auto 23.2 % (20-40); Mean Corpuscular HGB Conc 31.4 g/dl (31.0-35.0); Mean Corpuscular Hemoglobin 27.4 pg (27.0-33.0); Mean Corpuscular Volume 87.3 fL (80.0-98.0); Mean Platelet Volume 10.3 fL (9.4-12.3); Monocytes Absolute Auto 0.8 X10*3/uL (0.1-1.2); Monocytes Percent Auto 7.3 % (2-11); Neutrophils Absolute Auto 7.1 x10*3/uL (2.0-8.3); Neutrophils Percent Auto 64.7 % (45-73); Platelet Count 370 X10*3/uL (160-400); Red Blood Count 4.89 X10*6/uL (4.20-5.50); Red Cell Distribution Width 14.2 % (11.0-16.0); White Blood Count 10.9 X10*3/uL (4.8-10.8)
[2023-10-03 14:01] LABS: Alanine Aminotransferase 8 U/L (0-31); Albumin Level 4.2 g/dL (3.5-5.0); Alkaline Phosphatase 76 U/L (39-117); Anion Gap 13 (12-20); Aspartate Amino Transferase 11 U/L (5-31); Bilirubin Total 0.3 mg/dL (0.0-1.0); Blood Urea Nitrogen 7 mg/dL (9-16); Calcium 9.9 mg/dL (8.4-10.2); Carbon Dioxide 28 mmol/L (22-29); Chloride 106 mmol/L (96-108); Estimated Glomerular Filt Rate > 60; Glucose Random 108 mg/dL (60-115); Potassium 4.6 mmol/L (3.3-5.1); Sodium 142 mmol/L (135-145); Total Protein 7.4 g/dL (6.5-8.0)
[2023-10-03 14:05] LABS: Estimated Average Glucose 123 mg/dL; Hemoglobin A1c % 5.9 % (<6.0)
[2023-10-05 05:38] LABS: LDL Cholesterol Direct 119 mg/dL (<100)
== END 2023-10-03 11:06 | disposition home or self-care (01) ==
LOC: HO.HMGCLDS 11:05
PROVIDERS: PCP Internal Medicine; Visit Provider Internal Medicine
DX: R10.11 Right upper quadrant pain (principal); E78.9 Disorder of lipoprotein metabolism, unspecified; R73.03 Prediabetes; K21.9 Gastro-esophageal reflux disease without esophagitis; G89.4 Chronic pain syndrome; J45.909 Unspecified asthma, uncomplicated
CPT/HCPCS: 36415; 80053; 83036; 83721; 85025

== ENCOUNTER 2023-10-09 08:39 | Outpatient (AMB) | payer MEDICARE, MEDICAID, SELFPAY ==
--- NOTE | 2023-10-09 08:44 | A.OFFVIS_ITS ---
Intake Intake Visit Reasons: OV - Right Shoulder Impingement Intake Note: Kaylah is a 62 year old right hand dominant female who presents today for a follow up of her right shoulder impingement. Pain has been present since a fall in ~10/2022, and she found no relief from her injection on 02/15/23. She declined a GH joing injection at her last appointment and was recommended to continue strengthening exercises. Currently she continues to have pain which is felt all the time. Right TKA 06/28/22. She reports that the knee is feeling unstable and sore, she experinces a cracking/popping while walking Allergies adhesive tape [ADHESIVE TAPE] Allergy (Severe, Verified 10/09/23 08:44) SKIN TEARS pramipexole Allergy (Severe, Verified 10/09/23 08:44) Diarrhea adalimumab [From Humira] Allergy (Intermediate, Verified 10/09/23 08:44) Itching carisoprodol [From SOMA] Allergy (Intermediate, Verified 10/09/23 08:44) SWELLING, RASH cephalexin Allergy (Intermediate, Verified 10/09/23 08:44) Itching gabapentin Allergy (Intermediate, Verified 10/09/23 08:44) leg swelling sulfamethoxazole [From BACTRIM] Allergy (Intermediate, Verified 10/09/23 08:44) SWELLING,RASH trimethoprim [From BACTRIM] Allergy (Intermediate, Verified 10/09/23 08:44) SWELLING,RASH HPI OV - Right Shoulder Impingement HPI Details Kaylah is a 62 year old right hand dominant female who presents today for a follow up of her right shoulder impingement. Pain has been present since a fall in ~10/2022, and she found no relief from her injection on 02/15/23. She declined a GH joing injection at her last appointment and was recommended to continue strengthening exercises. Currently she continues to have pain which is felt all the time. Right TKA 06/28/22. She reports that the knee is feeling unstable and sore, she experinces a cracking/popping while walking. Her primary problem is recurrent falling. She attributes this to poor balance. She does not think this is related to the knee. She is getting injections in the back and hip with Pain Management. She has difficulty sleeping because of leg cramping? eeling tight . [facility] Medical History History of COVID-19 Chest pain JOHN positive Chronic pain syndrome Postlaminectomy syndrome of lumbar region Postlaminectomy syndrome of cervical region Chronic GERD Depression, major, in remission Periodic limb movement disorder Sleeping difficulty Sciatica, right side Asthma, moderate Constipation by delayed colonic transit Pre-diabetes DJD (degenerative joint disease) Lipid disorder Bursitis of right shoulder Right shoulder pain Spinal stenosis Back pain Fibromyalgia Degenerative disc disease Surgical History History of total right knee replacement History of lumbar fusion S/P placement of nerve stimulator History of sleeve gastrectomy History of esophagogastroduodenoscopy (EGD) H/O colonoscopy History of gastric bypass Hx of cholecystectomy H/O: hysterectomy H/O spinal fusion H/O shoulder surgery Family History Father No problems noted. Mother No problems noted. Other Mental health disorder Social History Household Members: Other Household Members Other:: son Housing: House Are you a primary gericare aide to a significant other at home: No Do you presently have visiting nurse or other home services: No Alcohol intake: current Alcohol intake frequency: holidays/special occasions only Comment: pts baseline pain is 6/10 Patient Tobacco Use Status: Former Tobacco user Quit Date: 10 years ago Tobacco use type: Cigarette Years Smoked: 30 e-Cigarette/Vaping Use: Never Used Second Hand Smoke Exposure: No Substance Use Type: Marijuana service: No Current occupational status: disabled Current occupation: right handed Cognitive needs: No Hearing needs: No Vision needs: Yes Physical Exam Extrem Other: 0-120 right knee No kellen instability +1 valgus opening without pain Right shoulder 50ER/90 abd + H/N Neg EC Assessment & Plan Assessment & Plan (1) Frequent falls: Code(s): R29.6 - Repeated falls Plan: Seeing PCP (2) Status post total knee replacement, right: Code(s): Z96.651 - Presence of right artificial knee joint Plan: No swelling and minimal pain. Quad strengthening. No additional intervention warranted at this time. (3) Impingement syndrome of right shoulder: Code(s): M75.41 - Impingement syndrome of right shoulder Plan: Stable. She is more concerned with her falling and her shoulder is bothersome but not overly painful.No intervention warranted at this time. Coding Level of Care Code Est Pt Level 4 (62281) Diagnoses Frequent falls R29.6 Status post total knee replacement, right Z96.651 Impingement syndrome of right shoulder M75.41
== END 2023-10-09 10:22 | disposition home or self-care (01) ==
PROVIDERS: PCP Internal Medicine; Visit Provider Orthopaedic Surgery
DX: M75.41 Impingement syndrome of right shoulder (principal); R29.6 Repeated falls; M25.561 Pain in right knee; Z96.651 Presence of right artificial knee joint
CPT/HCPCS: 99214

== ENCOUNTER → 2023-10-09 08:39 | Outpatient (BNVA) | payer MEDICARE, MEDICAID, SELFPAY | PROVIDERS: PCP Internal Medicine; Visit Provider Orthopaedic Surgery | DX: M96.1 Postlaminectomy syndrome, not elsewhere classified (principal); M53.3 Sacrococcygeal disorders, not elsewhere classified; M70.61 Trochanteric bursitis, right hip; M25.552 Pain in left hip; R29.6 Repeated falls; M75.41 Impingement syndrome of right shoulder; Z96.651 Presence of right artificial knee joint | CPT/HCPCS: 99212 ==

== ENCOUNTER 2023-10-09 10:57 | Outpatient (AMB) | payer MEDICARE, MEDICAID, SELFPAY ==
--- NOTE | 2023-10-09 10:57 | A.OFFVIS_ITS ---
Intake Vital Signs 10/09/23 11:02 Height 5 ft 4 in Weight 201 lb BMI 34.5 BP 130/66 Blood Pressure Location Lt brachial Position Sitting Respiration 14 Pulse 90 Pulse Source Pulse Oximeter Pulse Oximetry (%) 97 Oxygen Delivery Method Room Air Intake Visit Reasons: S/p (R) Thera SI Joint Injection 09/01/23 Intake Note: Patient reports pain 5/10. Allergies adhesive tape [ADHESIVE TAPE] Allergy (Severe, Verified 10/09/23 11:04) SKIN TEARS pramipexole Allergy (Severe, Verified 10/09/23 11:04) Diarrhea adalimumab [From Humira] Allergy (Intermediate, Verified 10/09/23 11:04) Itching carisoprodol [From SOMA] Allergy (Intermediate, Verified 10/09/23 11:04) SWELLING, RASH cephalexin Allergy (Intermediate, Verified 10/09/23 11:04) Itching gabapentin Allergy (Intermediate, Verified 10/09/23 11:04) leg swelling sulfamethoxazole [From BACTRIM] Allergy (Intermediate, Verified 10/09/23 11:04) SWELLING,RASH trimethoprim [From BACTRIM] Allergy (Intermediate, Verified 10/09/23 11:04) SWELLING,RASH HPI HPI Comments History of Present Illness Details Kaylah is back in my office after right sacroiliac joint injection which was performed on 09/01/2023. It has been more than 1 month since the procedure. She still reports 40-50% pain improvement. She reports better activities better mobility better social interactions. 07/27/2023 good results of intra-articular left hip steroid injection resulted in good pain relief. I explained to the patient that in the future when her pain will become stronger she is welcome to come back we will be able to perform hip steroid injection in October and sacroiliac joint injection in November of 2023. Past Procedures: 07/04/23: Left Diagnostic Sacroiliac Deidra nt Injection-30% pain relief for 2 hours 05/09/23: Bilateral Therapeutic Greater Trochanteric Bursa injections-70% ongoing pain relief PRIOR: Patient presents today for follow up for left sided sciatica pain. Patient reports frequent falls for the past year. She had right TKA in June 2022 and injured her left knee, shoulders and back in January 2023 when she fell from [facility] per EMR review. Patient recently seen her PCP for back pain and was prescibed Percocet with minimal to moderate pain relief. She also takes NSAIDs, Asper cream roll-on, ice and heat therapy with partial results. Walking, weight bearing, bending, climbing stairs, cold weather, getting out of car or shower increases her pain. Patient reports NEVRO SCS device has been working well for her post laminectomy syndrome but not covering left leg pain. She reports back pain radiating into her left buttock, left lateral hip and left groin. I could not reproduce pain with SLR testing today. However, she has pain with provocative testing for sacroiliac joint and left hip with groin pain. There is no tenderness along her battery pocket or incisional lines in her back. She also reports mid back pain. We will proceed with updating her back imaging, evaluate SCS status and assess degree of arthritis for left hip. She is interested to receive therapeutic injection to alleviate her pain. Denies any fever, weight changes, bladder or bowel dysfunction, or saddle anesthesia. PRIOR 08/25/22 Dr. Gloria: Kaylah is very pleasant 62 years old female who is my office complaining on pain in the posterior right buttock as well as anterior thigh on the right. She is well-known in this clinic she was treated for low back pain in the past with Nevro spinal cord stimulator. According to the patient she had a fall 3 weeks ago after which the symptoms appeared. She was not sent to any x-rays. Today on physical exam attention was attracted to the fact that patient has discomfort in the projection of the ischial tuberosity as well as pain aggravation in the groin with rotation of the right hip. I will send this patient for right hip x- ray. If there are any arthritic changes I will schedule her for intra-articular right hip steroid injection. PRIOR 02/07/22 Dr. Gloria: Kaylah is 61 years old female who presents in my office today status post 4 months of the implantation of spinal cord stimulator Nevro. She received the device to be treated for symptoms of postlaminectomy syndrome. She reports excellent pain relief better mobility better activities of daily living better social interactions. She is very happy with her machine. However she reports that at the side of the battery she feels some discomfort, she reports that battery became loose. She became more active and she lost some weight. She also reports that when she is walking through the narrow drawers she sometimes he the battery on the doors and it aunts to her discomfort. She does not report difficulty charging the device. Unlikely therefore the device is flipped. I discussed the situation with her today. We can potentially relocated the battery into the loin of her liking from the buttock. But that would require 3 incisions to complete for me. Alternatively she can try some topicals Aspercreme with lidocaine and salicylate. I also recommend her to purchase some bedsore protection pads in the pharmacy [id number] and use it for protection of the device from external trauma. We decided that she will see me in 1 month. [facility] Medical History History of COVID-19 Chest pain JOHN positive Chronic pain syndrome Postlaminectomy syndrome of lumbar region Postlaminectomy syndrome of cervical region Chronic GERD Depression, major, in remission Periodic limb movement disorder Sleeping difficulty Sciatica, right side Asthma, moderate Constipation by delayed colonic transit Pre-diabetes DJD (degenerative joint disease) Lipid disorder Bursitis of right shoulder Right shoulder pain Spinal stenosis Back pain Fibromyalgia Degenerative disc disease Surgical History History of total right knee replacement History of lumbar fusion S/P placement of nerve stimulator History of sleeve gastrectomy History of esophagogastroduodenoscopy (EGD) H/O colonoscopy History of gastric bypass Hx of cholecystectomy H/O: hysterectomy H/O spinal fusion H/O shoulder surgery Family History Father No problems noted. Mother No problems noted. Other Mental health disorder Social History Household Members: Other Household Members Other:: son Housing: House Are you a primary customer care representative to a significant other at home: No Do you presently have visiting nurse or other home services: No Alcohol intake: current Alcohol intake frequency: holidays/special occasions only Comment: pts baseline pain is 6/10 Patient Tobacco Use Status: Former Tobacco user Quit Date: 10 years ago Tobacco use type: Cigarette Years Smoked: 30 e-Cigarette/Vaping Use: Never Used Second Hand Smoke Exposure: No Substance Use Type: Marijuana service: No Current occupational status: disabled Current occupation: right handed Cognitive needs: No Hearing needs: No Vision needs: Yes Review of Systems Const All systems reviewed & are unremarkable except as noted in HPI and below Physical Exam Vital Signs: Last Vital Signs Pulse 90 10/09/23 11:02 Resp 14 10/09/23 11:02 BP 130/66 10/09/23 11:02 Pulse Ox 97 10/09/23 11:02 Oxygen Delivery Method Room Air 10/09/23 11:02 BMI result Body Mass Index 34.5 General: Appears afebrile. Alert and oriented. Mood and affect appropriate. Follows and participates in conversation appropriately. Respiratory effort is unlabored. No cough. Able to transition from sit to stand unassisted. Ambulates with bilaterally normal heel strike and toe off. Back/Spine/Pelvis Other: Limited lumbar ROM with flexion and extension. Facet loading test positive bilaterally. Oc?s, Pelvic compression and Stinchfield tests are positive on the right, pelvic distraction test is positive on the right, reproduce left groin and left buttock pain. Moderate left groin pain with I/E hip rotations on the left. Mild TTP at GTB bilaterally. Cervical Spine: cervical ROM normal, Cervical spine scars present and No Cervical spine tenderness Thoracic/Lumbar Spine: thoracic and lumbar spine normal to inspection, Thoracic/lumbar spine scar(s), Lasegue's sign negative, straight leg raise negative bilaterally, pain with thoraco-lumbar ROM, paraspinal muscle tenderness, No thoracic spinal tenderness and lumbar spinal tenderness at L5 Pelvis: buttock tenderness on the left Sacroiliac joints: on the right tender, on the left tender to palpation and bilaterally tender to palpation, by compression of iliac crest, by passive hyperextension of lower ext and other (As above) Assessment & Plan Assessment & Plan (1) Postlaminectomy syndrome of lumbar region: Comment: Patient is established with Pain Management [facility] Code(s): M96.1 - Postlaminectomy syndrome, not elsewhere classified (2) Sacroiliac joint pain: Code(s): M53.3 - Sacrococcygeal disorders, not elsewhere classified (3) Greater trochanteric bursitis of both hips: Code(s): M70.61 - Trochanteric bursitis, right hip; M70.62 - Trochanteric bursitis, left hip (4) Left hip pain: Code(s): M25.552 - Pain in left hip (5) Sacroiliac joint dysfunction of right side: Code(s): M53.3 - Sacrococcygeal disorders, not elsewhere classified Plan Reports good results of intra-articular hip steroid injection which was performed on 07/27/2023. Reports moderate to good results on sacroiliac joint injection on 09/01/2023. No new appointment is necessary. When the patient decides to go back for those injections when her pain will come back we will be able to schedule her without her visiting us for the appointment. Coding Level of Care Code Est Pt Level 3 (07841) Diagnoses Postlaminectomy syndrome of lumbar region M96.1 Sacroiliac joint pain M53.3 Greater trochanteric bursitis of both hips M70.61; M70.62 Left hip pain M25.552 Sacroiliac joint dysfunction of right side M53.3
[2023-10-09 11:02] VITALS: BP 130/66; PULSE 90; RESP 14; O2SAT 97; BMI 34.5
== END 2023-10-09 11:42 | disposition home or self-care (01) ==
LOC: HO.PMC 10:57
PROVIDERS: PCP Internal Medicine; Visit Provider Anesthesiology
DX: M96.1 Postlaminectomy syndrome, not elsewhere classified (principal); M53.3 Sacrococcygeal disorders, not elsewhere classified; M70.61 Trochanteric bursitis, right hip; M70.62 Trochanteric bursitis, left hip; M25.552 Pain in left hip
CPT/HCPCS: 99213

== ENCOUNTER 2023-10-16 08:47 | Outpatient (REF) | payer MEDICARE, MEDICAID, SELFPAY ==
--- NOTE | ~2023-10-16 | US_ITS ---
EXAMINATION: US ABDOMEN COMPLETE CLINICAL INFORMATION: Right upper quadrant pain. COMPARISON: CT abdomen and pelvis of 09/08/2020, ultrasound 06/19/2008. TECHNIQUE: Real-time imaging of the abdominal viscera. Limited visualization due to bowel gas. FINDINGS: PANCREAS: Limited visualization of pancreatic tail and head. Imaged portion of pancreatic body is unremarkable. ABDOMINAL AORTA: Limited visualization particularly of the [id number] abdominal aorta. Imaged portion of the distal abdominal aorta demonstrates atherosclerosis. INFERIOR VENA CAVA: Visualized portions are normal. LIVER: Mild intrahepatic biliary ductal dilatation redemonstrated as noted on prior CT scan. The liver is normal in size. The liver contour is normal. Parenchymal echogenicity is normal. Limited visualization. GALLBLADDER: Gallbladder is surgically absent. COMMON BILE DUCT: Common bile duct is prominent measuring up to 1.0 cm in diameter as noted on CT scan of 09/08/2020. RIGHT KIDNEY: No hydronephrosis. No renal calculi. Limited visualization. The kidney measures 11.6 cm in maximum dimension. LEFT KIDNEY: No hydronephrosis. No renal calculi. Limited visualization. The kidney measures 10.3 cm in maximum dimension. SPLEEN: 1.3 cm soft tissue mass adjacent to the spleen is characteristic of a splenule. The spleen measures 10.5 cm in maximum dimension. FREE FLUID: None. US/US abdomen complete IMPRESSION: 1. Gallbladder is surgically absent. 2. Mild intrahepatic biliary ductal dilatation and prominent common bile duct redemonstrated as noted on prior CT scan. 3. A 1.3 cm soft tissue mass adjacent to the spleen is characteristic of a splenule. 4. Atherosclerosis. This study was presented today 10/16/2023 for interpretation. Urgent results provided at this time as requested by referring provider.
== END 2023-10-16 08:48 | disposition home or self-care (01) ==
LOC: HO.HMGCX 08:47
PROVIDERS: PCP Internal Medicine; Visit Provider Internal Medicine
DX: R10.11 Right upper quadrant pain (principal)
CPT/HCPCS: 76700

== ENCOUNTER 2023-10-17 12:56 | Outpatient (AMB) | payer MEDICARE, MEDICAID, SELFPAY ==
--- NOTE | 2023-10-17 13:00 | A.OFFPC_ITS ---
Vital Signs 3 10/17/23 13:01 Height 5 ft 4 in Weight 202 lb 6 oz BMI 34.7 BP 118/64 Blood Pressure Location Rt brachial Position Sitting Pulse 83 Pulse Source Pulse Oximeter Pulse Oximetry (%) 95 Oxygen Delivery Method Room Air Intake Visit Reasons: 2 week follow up Allergies adhesive tape [ADHESIVE TAPE] Allergy (Severe, Verified 10/17/23 13:03) SKIN TEARS pramipexole Allergy (Severe, Verified 10/17/23 13:03) Diarrhea adalimumab [From Humira] Allergy (Intermediate, Verified 10/17/23 13:03) Itching carisoprodol [From SOMA] Allergy (Intermediate, Verified 10/17/23 13:03) SWELLING, RASH cephalexin Allergy (Intermediate, Verified 10/17/23 13:03) Itching gabapentin Allergy (Intermediate, Verified 10/17/23 13:03) leg swelling sulfamethoxazole [From BACTRIM] Allergy (Intermediate, Verified 10/17/23 13:03) SWELLING,RASH trimethoprim [From BACTRIM] Allergy (Intermediate, Verified 10/17/23 13:03) SWELLING,RASH Medication List - Last Reconciled 10/17/23 by Amaya Harris MD acetaminophen 650 mg (2 x 325 mg) PO Q6H PRN 30 days albuterol sulfate 90 mcg/actuation 2 puffs inhalation Q6H PRN cholecalciferol (vitamin D3) 50 mcg PO DAILY 90 days clonazepam 1 mg PO BEDTIME 90 days duloxetine 60 mg PO DAILY omeprazole 20 mg PO BID PRN quetiapine (Seroquel) 50 mg (2 x 25 mg) PO BEDTIME 90 days simvastatin 40 mg PO BEDTIME 90 days walker Folding Front wheeled walker Tobacco use date assessed: 10/17/23 Fall risk assessment: 2 + Falls in past year Last assessed Fall Risk: 10/17/23 Dental Screening Dental Screen Date: 10/17/23 Did you have a dental visit in the last 12 months?: No Did you have a dental problem in the last 6 months where you did not have access to dental care?: No Was dental information given to patient?: No HPI 2 week follow up 2 HPI0 Details Patient presented for the evaluation of right upper quadrant pain Which gets worse when she lays down or press on it We did the ultrasound of abdomen which showed Gallbladder is surgically absent. Mild intrahepatic biliary ductal dilatation and prominent common bile duct redemonstrated as noted on prior CT scan. A 1.3 cm soft tissue mass adjacent to the spleen is characteristic of a splenule. Atherosclerosis. Due to finding of atherosclerosis we also did the EKG today which showed normal sinus rhythm no acute findings Patient does not have any nausea vomiting fever or chills , there is no shortness a breath coughing I have placed a referral to gastroenterology for further management [facility] Medical History History of COVID-19 Chest pain JOHN positive Chronic pain syndrome Postlaminectomy syndrome of lumbar region Postlaminectomy syndrome of cervical region Chronic GERD Depression, major, in remission Periodic limb movement disorder Sleeping difficulty Sciatica, right side Asthma, moderate Constipation by delayed colonic transit Pre-diabetes DJD (degenerative joint disease) Lipid disorder Bursitis of right shoulder Right shoulder pain Spinal stenosis Back pain Fibromyalgia Degenerative disc disease Surgical History History of total right knee replacement History of lumbar fusion S/P placement of nerve stimulator History of sleeve gastrectomy History of esophagogastroduodenoscopy (EGD) H/O colonoscopy History of gastric bypass Hx of cholecystectomy H/O: hysterectomy H/O spinal fusion H/O shoulder surgery Family History Father No problems noted. Mother No problems noted. Other Mental health disorder Social History Household Members: Other Household Members Other:: son Housing: House Are you a primary acute care occupational therapist to a significant other at home: No Do you presently have visiting nurse or other home services: No Alcohol intake: current Alcohol intake frequency: holidays/special occasions only Comment: pts baseline pain is 6/10 Patient Tobacco Use Status: Former Tobacco user Quit Date: 10 years ago Tobacco use type: Cigarette Years Smoked: 30 e-Cigarette/Vaping Use: Never Used Second Hand Smoke Exposure: No Substance Use Type: Marijuana service: No Current occupational status: disabled Current occupation: right handed Cognitive needs: No Hearing needs: No Vision needs: Yes Questionnaire PHQ-9 Over the last 2 weeks, how often have you been bothered by any of the following problems? 1. Little interest or pleasure in doing things: several days 2. Feeling down, depressed, or hopeless: nearly every day 3. Trouble falling or staying asleep, or sleeping too much: nearly every day 4. Feeling tired or having little energy: nearly every day 5. Poor appetite or overeating: nearly every day 6. Feeling bad about yourself - or that you are a failure or have let yourself or your family down: nearly every day 7. Trouble concentrating on things, such as reading the newspaper or watching television: more than half the days 8. Moving or speaking so slowly that other people could have noticed. Or the opposite - being so fidgety or restless that you have been moving around a lot more than usual: not at all 9. Thoughts that you would be better off or of hurting yourself in some way: not at all Total score: 18 Depression Screening Interpretation: Positive Depression Screening Follow-up: Existing condition and In treatment Depression Screening Done: Yes 86060 - PHQ-9 Billing: Yes Source: Developed by Drs. Andrew Lamb, Julia Olivas, Alfonso Silva and colleagues, with an educational elvia from [employer]. Thrive Questionnaire Date Thrive assessed: 08/19/22 I am a: Patient What is your living situation today?: I have a place to live, but I am worried about losing it in the future Within the past 12 months, did the food you bought not last and you didn't have the money to get more?: Sometimes True Within the past 12 months, did you worry whether your food would run out before you got money to buy more?: Sometimes True Do you have trouble paying for medicines?: No Do you have trouble getting transportation to medical appointments?: No Do you have trouble paying your heating and electricity bill?: Yes Do you have trouble taking care of your child, family member or friend?: I choose not to answer this question Do you have trouble with day-to-day activities such as bathing, preparing meals, shopping, managing finances, etc.?: Yes Are you currently unemployed and looking for a job?: No Are you interested in more education?: No Please select the resources that you would like help with: Utilities and None Currently or been in a relationship where the following occur: no concerns reported THRIVE Score: 4 AUDIT C Alcohol Use Questionnaire (AUDIT-C) 1. How often do you have a drink containing alcohol?: Monthly or less 2. How many drinks containing alcohol do you have on a typical day when you are drinking?: 1 or 2 3. How often do you have six or more drinks on one occasion?: Never Total Score: 1 Score Reviewed/Action Taken: No CATARINA-7 AMB Questionnaire CATARINA-7 Date CATARINA - 7 assessed: 10/17/23 Feeling nervous, anxious, or on edge: 3 = Nearly every day Not being able to stop or control worryin = Nearly every day Worrying too much about different things: 3 = Nearly every day Trouble relaxin = More than half the days Being so restless that it is hard to sit still: 2 = More than half the days Becoming easily annoyed or irritable: 1 = Several days Feeling afraid as if something awful might happen: 1 = Several days Total CATARINA-7 score (0-4 normal; 5-9 mild; 10-14 moderate; 15-21 severe): 15 Source: Developed by Drs. Andrew Lamb, Julia Olivas, Alfonso Silva and colleagues, with an educational elvia from [employer]. CATARINA-7 Assessment Billing CATARINA-7 Assessment Tool: CATARINA-7 Assessment 36368 (In treatment) Review of Systems Const Denies chills and Denies fever(s) ENT Denies epistaxis and Denies nasal discharge Card Denies chest pain Resp Denies chest congestion, Denies cough and Denies hemoptysis GI Denies diarrhea and Denies nausea Skin/Breast Denies rash Neuro Reports no additional complaints Psych Reports no additional complaints Endo Reports no additional complaints Physical exam (Primary Care) Vital Signs: Last Vital Signs Pulse 83 10/17/23 13:01 BP 118/64 10/17/23 13:01 Pulse Ox 95 10/17/23 13:01 Oxygen Delivery Method Room Air 10/17/23 13:01 BMI result Body Mass Index 34.7 Tobacco/Smoking Status: Tobacco use Status Tobacco use date assessed 10/17/23 10/17/23 13:06 Patient Tobacco Use Status Former Tobacco user 10/17/23 13:00 Tobacco use type Cigarette 10/17/23 13:00 e-Cigarette/Vaping Use Never Used 10/17/23 13:00 PHQ-9: PHQ-9 Score PHQ-9: Total score 18 10/17/23 13:31 Depression Screening Interpretation: Positive Depression Screening Follow-up: Existing condition and In treatment Thrive Assessment: Date of Thrive Assessment Date Thrive assessed 08/19/22 10/17/23 13:00 Currently or been in a relationship where the following occur: no concerns reported Const General: cooperative, comfortable and no acute distress Orientation/consciousness: patient oriented x3 HENMT Head: Yes normocephalic Eyes General: appearance normal, both eyes and all related structures Neck Neck: Yes supple Resp Effort & Inspection: normal respiratory effort, no cough and no stridor Cardio Rhythm: regular rhythm Heart sounds: S1 normal heart sound present and S2 normal heart sound present GI Abdomen image: 2 1. Discomfort with pressure Skin General skin exam: turgor normal Neuro General: patient oriented x3, tone normal and moves all extremities Extrem Right lower extremity: no edema Left lower extremity: no edema Office Procedures EKG 63399-[id number], Complete Assessment and Plan Assessment & Plan (1) Right upper quadrant abdominal pain: Code(s): R10.11 - Right upper quadrant pain (2) Atherosclerosis: Code(s): I70.90 - Unspecified atherosclerosis Plan Patient presented for evaluation of right upper quadrant pain Which gets worse when she lays down or press on it We did the ultrasound of abdomen which showed Gallbladder is surgically absent. Mild intrahepatic biliary ductal dilatation and prominent common bile duct redemonstrated as noted on prior CT scan. A 1.3 cm soft tissue mass adjacent to the spleen is characteristic of a splenule. Atherosclerosis. Due to finding of atherosclerosis we also did the EKG today which showed normal sinus rhythm no acute findings Patient does not have any nausea vomiting fever or chills , there is no shortness a breath coughing I have placed a referral to gastroenterology for further management Orders: Orders 2 AMB EKG-In Office Today I70.90 - Unspecified atherosclerosis Referrals 2 Gastroenterology Referral R10.11 - Right upper quadrant pain Coding Level of Care Code Est Pt Level 4 (13026) Diagnoses Right upper quadrant abdominal pain R10.11 Atherosclerosis I70.90 CPT Codes EKG - CPT: 15456-[id number], Complete ([id number]) Additional Codes CATARINA-7 Assessment Billing - CATARINA-7 Assessment Tool: CATARINA-7 Assessment [id number] ([id number])
[2023-10-17 13:01] VITALS: BP 118/64; PULSE 83; O2SAT 95; BMI 34.7
== END 2023-10-17 14:53 | disposition home or self-care (01) ==
PROVIDERS: PCP Internal Medicine; Visit Provider Internal Medicine
DX: R10.11 Right upper quadrant pain (principal); I70.90 Unspecified atherosclerosis
CPT/HCPCS: 93000; 99214

== ENCOUNTER 2023-11-03 12:06 | Outpatient (AMB) | payer MEDICARE, MEDICAID, SELFPAY ==
--- NOTE | 2023-11-03 12:08 | A.OFFPC_ITS ---
Vital Signs 3 11/03/23 12:09 Height 5 ft 4 in Weight 203 lb BMI 34.8 BP 102/60 Blood Pressure Location Rt brachial Position Sitting Pulse 99 Pulse Source Pulse Oximeter Pulse Oximetry (%) 96 Oxygen Delivery Method Room Air Intake Visit Reasons: Trouble lifting left arm Allergies adhesive tape [ADHESIVE TAPE] Allergy (Severe, Verified 11/03/23 12:10) SKIN TEARS pramipexole Allergy (Severe, Verified 11/03/23 12:10) Diarrhea adalimumab [From Humira] Allergy (Intermediate, Verified 11/03/23 12:10) Itching carisoprodol [From SOMA] Allergy (Intermediate, Verified 11/03/23 12:10) SWELLING, RASH cephalexin Allergy (Intermediate, Verified 11/03/23 12:10) Itching gabapentin Allergy (Intermediate, Verified 11/03/23 12:10) leg swelling sulfamethoxazole [From BACTRIM] Allergy (Intermediate, Verified 11/03/23 12:10) SWELLING,RASH trimethoprim [From BACTRIM] Allergy (Intermediate, Verified 11/03/23 12:10) SWELLING,RASH Medication List - Last Reconciled 11/03/23 by Amaya Harris MD acetaminophen 650 mg (2 x 325 mg) PO Q6H PRN 30 days albuterol sulfate 90 mcg/actuation 2 puffs inhalation Q6H PRN cholecalciferol (vitamin D3) 50 mcg PO DAILY 90 days clonazepam 1 mg PO BEDTIME 90 days duloxetine 60 mg PO DAILY omeprazole 20 mg PO BID PRN quetiapine (Seroquel) 50 mg (2 x 25 mg) PO BEDTIME 90 days simvastatin 40 mg PO BEDTIME 90 days walker Folding Front wheeled walker Tobacco use date assessed: 11/03/23 Dental Screening Dental Screen Date: 11/03/23 Did you have a dental visit in the last 12 months?: No Was dental information given to patient?: Patient declined HPI Trouble lifting left arm 2 HPI0 Details Patient is 63-year-old female with severe osteoarthritis both shoulders She has had MRI in chart done on her right shoulder when she had procedure done by [facility] orthopedic Patient says that she felt little better but she continued to have to pain Today she came in because of pain in her left shoulder for the past 3 days, patient is having difficulty dressing up because of the pain She is requesting a referral to orthopedic for left shoulder and pain management There is no weakness in her left arm I have sent tramadol 50 mg patient is to take that with 1 Tylenol and 1 a leave with supper Referral to orthopedic placed [facility] Medical History History of COVID-19 Chest pain JOHN positive Chronic pain syndrome Postlaminectomy syndrome of lumbar region Postlaminectomy syndrome of cervical region Chronic GERD Depression, major, in remission Periodic limb movement disorder Sleeping difficulty Sciatica, right side Asthma, moderate Constipation by delayed colonic transit Pre-diabetes DJD (degenerative joint disease) Lipid disorder Bursitis of right shoulder Right shoulder pain Spinal stenosis Back pain Fibromyalgia Degenerative disc disease Surgical History History of total right knee replacement History of lumbar fusion S/P placement of nerve stimulator History of sleeve gastrectomy History of esophagogastroduodenoscopy (EGD) H/O colonoscopy History of gastric bypass Hx of cholecystectomy H/O: hysterectomy H/O spinal fusion H/O shoulder surgery Family History Father No problems noted. Mother No problems noted. Other Mental health disorder Social History Household Members: Other Household Members Other:: son Housing: House Are you a primary career coordinator to a significant other at home: No Do you presently have visiting nurse or other home services: No Alcohol intake: current Alcohol intake frequency: holidays/special occasions only Comment: pts baseline pain is 6/10 Patient Tobacco Use Status: Former Tobacco user Quit Date: 10 years ago Tobacco use type: Cigarette Years Smoked: 30 e-Cigarette/Vaping Use: Never Used Second Hand Smoke Exposure: No Substance Use Type: Marijuana service: No Current occupational status: disabled Current occupation: right handed Cognitive needs: No Hearing needs: No Vision needs: Yes Questionnaire Thrive Questionnaire Date Thrive assessed: 08/19/22 CATARINA-7 AMB Questionnaire CATARINA-7 Date CATARINA - 7 assessed: 10/17/23 Source: Developed by Drs. Andrew Lamb, Julia Olivas, Alfonso Silva and colleagues, with an educational elvia from [employer] Review of Systems Const All systems reviewed & are unremarkable except as noted in HPI and below Physical exam (Primary Care) Vital Signs: Last Vital Signs Pulse 99 11/03/23 12:09 BP 102/60 11/03/23 12:09 Pulse Ox 96 11/03/23 12:09 Oxygen Delivery Method Room Air 11/03/23 12:09 BMI result Body Mass Index 34.8 Tobacco/Smoking Status: Tobacco use Status Tobacco use date assessed 11/03/23 11/03/23 12:12 Patient Tobacco Use Status Former Tobacco user 11/03/23 12:12 Tobacco use type Cigarette 11/03/23 12:12 e-Cigarette/Vaping Use Never Used 11/03/23 12:12 Thrive Assessment: Date of Thrive Assessment Date Thrive assessed 08/19/22 11/03/23 12:12 Const General: no acute distress Orientation/consciousness: patient oriented x3 Eyes General: appearance normal, both eyes and all related structures Resp Effort & Inspection: normal respiratory effort and able to speak in complete sentences Auscultation: clear to auscultation bilaterally Neuro General: patient oriented x3 Extrem Shoulder/upper arm images: 2 1. Pain with palpation and limited range of motion secondary to pain, no deformity Psych Mental Status: mental status grossly normal Assessment and Plan Assessment & Plan (1) Impingement syndrome, shoulder, left: Code(s): M75.42 - Impingement syndrome of left shoulder Plan Patient is 63-year-old female with severe osteoarthritis both shoulders She has had MRI in chart done on her right shoulder when she had procedure done by [facility] orthopedic Patient says that she felt little better but she continued to have to pain Today she came in because of pain in her left shoulder for the past 3 days, patient is having difficulty dressing up because of the pain She is requesting a referral to orthopedic for left shoulder and pain management There is no weakness in her left arm I have sent tramadol 50 mg patient is to take that with 1 Tylenol and 1 a leave with supper Orders: Referrals 2 Orthopedics Referral M75.42 - Impingement syndrome of left shoulder Medications: New 2 tramadol 50 mg PO DAILY 30 tabs 0RF Coding Level of Care Code Est Pt Level 3 (26235) Diagnoses Impingement syndrome, shoulder, left M75.42
[2023-11-03 12:09] VITALS: BP 102/60; PULSE 99; O2SAT 96; BMI 34.8
== END 2023-11-03 16:36 | disposition home or self-care (01) ==
LOC: HO.HMGC 12:06
PROVIDERS: PCP Internal Medicine; Visit Provider Internal Medicine
DX: M75.42 Impingement syndrome of left shoulder (principal)
CPT/HCPCS: 99213

== ENCOUNTER 2023-11-10 08:13 | Outpatient (REF) | payer MEDICARE, MEDICAID, SELFPAY ==
--- NOTE | ~2023-11-10 | XR_ITS ---
EXAMINATION: XR SHOULDER, LEFT CLINICAL INFORMATION: Left shoulder pain. COMPARISON: 02/15/2023 TECHNIQUE: Three views of the left shoulder. FINDINGS: Moderate osteoarthritis is evident at the left glenohumeral joint with prominent marginal osteophytes. There is focal osseous hypertrophy along the proximal humeral neck which is new as compared to prior and may correspond to sequela of a prior capsular avulsion injury or, alternatively, a chronic osseous loose body which has fused with the adjacent humerus. No fractures. Mild acromioclavicular osteoarthritis. No acute soft tissue findings. XR/XR shoulder LT min 2V IMPRESSION: 1. Moderate glenohumeral and mild acromioclavicular osteoarthritis. 2. Focal osseous hypertrophy along the proximal humeral neck is new as compared to prior and may correspond to sequela of a prior capsular avulsion injury or a fused loose body.
== END 2023-11-10 08:14 | disposition home or self-care (01) ==
LOC: HO.HOSX 08:13
PROVIDERS: Visit Provider Physician Assistant
DX: M19.012 Primary osteoarthritis, left shoulder (principal)
CPT/HCPCS: 20610; 73030; 99212; J1010

== ENCOUNTER 2023-11-10 09:01 | Outpatient (AMB) | payer MEDICARE, MEDICAID, SELFPAY ==
[2023-11-10 09:02] VITALS: BMI 34.8
--- NOTE | 2023-11-10 09:02 | MHC.OFFVIS ---
Vital Signs 11/10/23 09:02 Height 5 ft 4 in Weight 203 lb BMI 34.8 Intake Visit Reasons: new peob-Impingement syndrome Lt shoulder Intake Note: Kaylah is a 63 year old right hand dominant female who presents today for a new problem visit with complaints of left shoulder pain. She reports that she has history of arthroscopic surgery on this shoulder with Dr. Wills in 2019 for ROLB. She has had increased pain with acitivty and painful ROM. With certain movements she has a sharp stabbing pain. She does have occasional numbness and tinglingl but she thins that this is duel to her nelck fusion Allergies adhesive tape [ADHESIVE TAPE] Allergy (Severe, Verified 11/10/23 09:22) SKIN TEARS pramipexole Allergy (Severe, Verified 11/10/23 09:22) Diarrhea adalimumab [From Humira] Allergy (Intermediate, Verified 11/10/23 09:22) Itching carisoprodol [From SOMA] Allergy (Intermediate, Verified 11/10/23 09:22) SWELLING, RASH cephalexin Allergy (Intermediate, Verified 11/10/23 09:22) Itching gabapentin Allergy (Intermediate, Verified 11/10/23 09:22) leg swelling sulfamethoxazole [From BACTRIM] Allergy (Intermediate, Verified 11/10/23 09:22) SWELLING,RASH trimethoprim [From BACTRIM] Allergy (Intermediate, Verified 11/10/23 09:22) SWELLING,RASH HPI HPI new peob-Impingement syndrome Lt shoulder: Details: 63-year-old right hand dominant female who presents to the office today for evaluation of left shoulder pain. She has a history of left with Dr. Wills on 2020 for ROLB. She states she has pain in her left shoulder which is aggravated with activity and ROM. She also c/o a sharp stabbing pain with certain movements. She also has occasional numbness and tingling. She does not have a history of diabetes. [facility] Medical History (Reviewed 11/10/23 @ 09:22 by Mikayla Sullivan [facility]) History of COVID-19 Chest pain JOHN positive Chronic pain syndrome Postlaminectomy syndrome of lumbar region Postlaminectomy syndrome of cervical region Chronic GERD Depression, major, in remission Periodic limb movement disorder Sleeping difficulty Sciatica, right side Asthma, moderate Constipation by delayed colonic transit Pre-diabetes DJD (degenerative joint disease) Lipid disorder Bursitis of right shoulder Right shoulder pain Spinal stenosis Back pain Fibromyalgia Degenerative disc disease Surgical History History of total right knee replacement History of lumbar fusion S/P placement of nerve stimulator History of sleeve gastrectomy History of esophagogastroduodenoscopy (EGD) H/O colonoscopy History of gastric bypass Hx of cholecystectomy H/O: hysterectomy H/O spinal fusion H/O shoulder surgery Family History Father No problems noted. Mother No problems noted. Other Mental health disorder Social History Household Members: Other Household Members Other:: son Housing: House Are you a primary career guidance counselor to a significant other at home: No Do you presently have visiting nurse or other home services: No Alcohol intake: current Alcohol intake frequency: holidays/special occasions only Comment: pts baseline pain is 6/10 Patient Tobacco Use Status: Former Tobacco user Quit Date: 10 years ago Tobacco use type: Cigarette Years Smoked: 30 e-Cigarette/Vaping Use: Never Used Second Hand Smoke Exposure: No Substance Use Type: Marijuana service: No Current occupational status: disabled Current occupation: right handed Cognitive needs: No Hearing needs: No Vision needs: Yes Review of Systems Const All systems reviewed & are unremarkable except as noted in HPI and below Physical Exam Vital Signs: BMI result Body Mass Index 34.8 Extrem Other: Right shoulder normal to inspection. Tenderness over the bicipital groove and along the deltoid region of the shoulder. Forward flexion to 100, external rotation to 75, internal rotation to S1.Mild discomfort with RTC strength. Negative Francis and cross body abduction. NVI. Office Procedures Joint Injection/Drain Joint Injection/Drain Primary Site: left shoulder Prep: site was prepped using aseptic technique, ethochloride spray was applied and injection warnings given Injected: 80 mg of, DepoMedrol, with 8 mL of, 1% plain lidocaine and in the subcromial space Approach Used: posterolateral Procedure: The patient tolerated the procedure well and there was some relief with the local anesthesia Coding 17779 - Glenohumeral/Tronchanteric Bursa/Intraarticular Procedure code (CPT) selection complete Results Reviewed Results Reviewed: Xrays were obtained in the office today and personally reviewed by me of the left shoulder show severe GHJ oa Assessment & Plan Assessment & Plan (1) Osteoarthritis of glenohumeral joint: Code(s): M19.019 - Primary osteoarthritis, unspecified shoulder Category: Medical Qualifiers: Laterality: left Qualified Code(s): M19.012 - Primary osteoarthritis, left shoulder Plan We discussed options today which include steroid injection. They did consent to move forward with the left shoulder injection, which was tolerated well. I recommended rest, ice and elevation and OTC anti-inflammatories PRN for discomfort. We discussed definitive treatment which would likely be TSA which she is not ready at this time. If symptoms persist or worsens, patient will contact the office, otherwise follow-up as needed. Orders: Orders XR shoulder LT min 2V Today M25.512 - Pain in left shoulder Patient Instructions: Scribed for Mulugeta Carrington PA-C, by Christiano Jiménez durable medical equipment technician, on 11/10/2023 at 9:15 AM EST. IMulugeta PA-C, have personally reviewed and agree with the information entered by the scribe.
== END 2023-11-10 09:58 | disposition home or self-care (01) ==
PROVIDERS: PCP Internal Medicine; Visit Provider Physician Assistant
DX: M19.012 Primary osteoarthritis, left shoulder (principal)
CPT/HCPCS: 20610; 99213

== ENCOUNTER 2024-01-04 09:42 | Outpatient (REF) | payer MEDICARE, MEDICAID, SELFPAY ==
[2024-01-04 12:07] LABS: Lipase 11 U/L (8-78)
[2024-01-04 12:25] LABS: TSH reflex Free T4 0.52 uIU/mL (0.32-4.0)
[2024-01-04 12:34] LABS: Folate 6.1 ng/mL (> or = 4.0); Vitamin B12 271 pg/mL (200-900)
[2024-01-09 13:58] LABS: Vitamin D 25-OH, D2 <4 ng/mL; Vitamin D 25-OH, D3 7 ng/mL; Vitamin D 25-OH, Total 7 ng/mL (30-100)
== END 2024-01-04 09:43 | disposition home or self-care (01) ==
LOC: HO.LAB 09:42
PROVIDERS: PCP Internal Medicine; Referring Provider Internal Medicine; Visit Provider Nurse Practitioner Family
DX: E55.9 Vitamin D deficiency, unspecified (principal); R19.7 Diarrhea, unspecified; K21.9 Gastro-esophageal reflux disease without esophagitis; R14.0 Abdominal distension (gaseous); R11.2 Nausea with vomiting, unspecified; R10.31 Right lower quadrant pain; K59.01 Slow transit constipation; R10.811 Right upper quadrant abdominal tenderness
CPT/HCPCS: 36415; 82306; 82607; 82746; 83690; 84443; 99202

== ENCOUNTER 2024-01-04 09:42 | Outpatient (AMB) | payer MEDICARE, MEDICAID, SELFPAY ==
--- NOTE | 2024-01-04 09:51 | MHC.OFFVIS ---
Vital Signs 01/04/24 10:01 Height 5 ft 4 in Weight 203 lb 4.259 oz BMI 34.9 BP 116/70 Blood Pressure Location Rt brachial Position Sitting Pulse 74 Pulse Source Pulse Oximeter Pulse Oximetry (%) 98 Oxygen Delivery Method Room Air Intake Visit Reasons: Right Upper Quadrant Pain Intake Note: Kaylah presents to the office today for a new pt initial visit. CC; RUQ pain. Pt reports hx of gastric bypass approximately 4 years ago. Pt reports that she has been having problems ever since. Pt reports having a lump in the RUQ. Pt reports that she feels that there is localized distention and swelling in the RUQ, underneath her bottom rib. Pt reports that she was hospitalized 05/2023 for sx and they did not find any relevant information on their scans during this encounter. Pt reports that she feels the pain makes it hard to breathe sometimes. She also feels that it constricts her movements, and she is unable to get comfortable when she has these experiences. Pt reports that she has these episodes but the sx are not consistent. 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 Allergies adhesive tape [ADHESIVE TAPE] Allergy (Severe, Verified 01/04/24 09:59) SKIN TEARS pramipexole Allergy (Severe, Verified 01/04/24 09:59) Diarrhea adalimumab [From Humira] Allergy (Intermediate, Verified 01/04/24 09:59) Itching carisoprodol [From SOMA] Allergy (Intermediate, Verified 01/04/24 09:59) SWELLING, RASH cephalexin Allergy (Intermediate, Verified 01/04/24 09:59) Itching gabapentin Allergy (Intermediate, Verified 01/04/24 09:59) leg swelling sulfamethoxazole [From BACTRIM] Allergy (Intermediate, Verified 01/04/24 09:59) SWELLING,RASH trimethoprim [From BACTRIM] Allergy (Intermediate, Verified 01/04/24 09:59) SWELLING,RASH HPI HPI Right Upper Quadrant Pain: Details: 63-year-old female with past medical history of osteoarthritis, atherosclerosis, asthma, history of total R knee replacement, psoriatic arthropathy, spinal cord stimulator, anxiety, obesity, chronic GERD, insomnia, psoriasis, hyperlipidemia, prediabetic, DJD, constipation, asthma, sciatica, depression history of gastric bypass is here today for initial consultation. Patient was sent by her PCP. Last colonoscopy was done by Dr. Tong in 2014. Patient had no polyps, diverticulosis and hemorrhoids found on colonoscopy. Recommendation was made to return in 10 years. Patient had upper endoscopy done in 2020 for epigastric pain postprandially. Mild inflammation found and her PPI treatment was increased to twice a day. Patient reports postprandial abdominal bloating. History of cholecystectomy. Occasional postprandial diarrhea. Sometimes patient reports she has postprandial vomiting. Patient admits to being constipated since she was a teenager. Patient occasionally will use senna on as needed basis if no movement for few days. Patient states that sometimes she would go for 1 week without having a bowel patient reports right upper quadrant pain. Occasionally patient states that she feels like there is a ball in that area that feels like it is protruding. Today patient has no symptoms. Patient reports that she is afraid to eat at times. Multiple studies done in the past, that included gastric emptying study, GI series. Patient had abdominal ultrasound that showed no acute processes except for dilated bile duct. [facility] Medical History History of COVID-19 Chest pain JOHN positive Chronic pain syndrome Postlaminectomy syndrome of lumbar region Postlaminectomy syndrome of cervical region Chronic GERD Depression, major, in remission Periodic limb movement disorder Sleeping difficulty Sciatica, right side Asthma, moderate Constipation by delayed colonic transit Pre-diabetes DJD (degenerative joint disease) Lipid disorder Bursitis of right shoulder Right shoulder pain Spinal stenosis Back pain Fibromyalgia Degenerative disc disease Surgical History History of total right knee replacement History of lumbar fusion S/P placement of nerve stimulator History of sleeve gastrectomy History of esophagogastroduodenoscopy (EGD) H/O colonoscopy History of gastric bypass Hx of cholecystectomy H/O: hysterectomy H/O spinal fusion H/O shoulder surgery Family History Father No problems noted. Mother No problems noted. Other Mental health disorder Social History Household Members: Other Household Members Other:: son Housing: House Are you a primary acute care registered nurse to a significant other at home: No Do you presently have visiting nurse or other home services: No Alcohol intake: current Alcohol intake frequency: holidays/special occasions only Comment: pts baseline pain is 6/10 Patient Tobacco Use Status: Former Tobacco user Tobacco use type: Cigarette Years Smoked: 30 e-Cigarette/Vaping Use: Never Used Second Hand Smoke Exposure: No Substance Use Type: Marijuana service: No Current occupational status: disabled Current occupation: right handed Cognitive needs: No Hearing needs: No Vision needs: Yes Review of Systems Const Denies weight gain and Denies weight loss ENT Reports no additional complaints, Denies dysphagia and Denies odynophagia Card Reports no additional complaints Resp Reports no additional complaints GI Reports abdominal pain (RUQ), Denies belching, Denies melena, Reports bloating, Reports constipation, Denies dysphagia, Denies excessive flatus, Denies dyspepsia, Denies heartburn, Denies diarrhea, Reports loose stools (Occasional), Reports nausea, Denies odynophagia and Denies vomiting Reports no additional complaints Musc Reports no additional complaints Neuro Reports no additional complaints Psych Reports no additional complaints Endo Reports no additional complaints Physical Exam Vital Signs: Last Vital Signs Pulse 74 01/04/24 10:01 BP 116/70 01/04/24 10:01 Pulse Ox 98 01/04/24 10:01 Oxygen Delivery Method Room Air 01/04/24 10:01 BMI result Body Mass Index 34.9 Const General: healthy appearing and no acute distress Nutritional Appearance: obese Orientation/consciousness: patient oriented x3 Resp Effort & Inspection: normal respiratory effort, able to speak in complete sentences, no tracheal deviation and symmetric chest movement Auscultation: clear to auscultation bilaterally Cardio Rate: regular rate GI Inspection: Yes normal to inspection, No distended and Yes obesity Palpation (GI): Soft to palpation, not firm, nontender and No hepatosplenomegaly present Auscultation: normal bowel sounds General: Yes no CVA tenderness Back/Spine/Pelvis Back: no CVA tenderness Skin General skin exam: elasticity normal, turgor normal and dry skin Neuro General: patient oriented x3 Psych Appearance: grossly normal Mental Status: mental status grossly normal Results Reviewed Results Reviewed: ABDOMINAL ULTRASOUND 10/11/2023 FINDINGS: PANCREAS: Limited visualization of pancreatic tail and head. Imaged portion of pancreatic body is unremarkable. ABDOMINAL AORTA: Limited visualization particularly of the [id number] abdominal aorta. Imaged portion of the distal abdominal aorta demonstrates atherosclerosis. INFERIOR VENA CAVA: Visualized portions are normal. LIVER: Mild intrahepatic biliary ductal dilatation redemonstrated as noted on prior CT scan. The liver is normal in size. The liver contour is normal. Parenchymal echogenicity is normal. Limited visualization. GALLBLADDER: Gallbladder is surgically absent. COMMON BILE DUCT: Common bile duct is prominent measuring up to 1.0 cm in diameter as noted on CT scan of 09/08/2020. RIGHT KIDNEY: No hydronephrosis. No renal calculi. Limited visualization. The kidney measures 11.6 cm in maximum dimension. LEFT KIDNEY: No hydronephrosis. No renal calculi. Limited visualization. The kidney measures 10.3 cm in maximum dimension. SPLEEN: 1.3 cm soft tissue mass adjacent to the spleen is characteristic of a splenule. The spleen measures 10.5 cm in maximum dimension. FREE FLUID: None. US/US abdomen complete IMPRESSION: 1. Gallbladder is surgically absent. 2. Mild intrahepatic biliary ductal dilatation and prominent common bile duct redemonstrated as noted on prior CT scan. 3. A 1.3 cm soft tissue mass adjacent to the spleen is characteristic of a splenule. 4. Atherosclerosis. This study was presented today 10/16/2023 for interpretation. Urgent results provided at this time as requested by referring provider. Assessment & Plan Assessment & Plan (1) Right upper quadrant abdominal pain: Code(s): R10.11 - Right upper quadrant pain Category: Medical (2) Chronic GERD: Code(s): K21.9 - Gastro-esophageal reflux disease without esophagitis Category: Medical (3) Postprandial abdominal pain in right upper quadrant: Code(s): R10.11 - Right upper quadrant pain (4) Postprandial abdominal bloating: Code(s): R14.0 - Abdominal distension (gaseous) (5) Nausea & vomiting: Code(s): R11.2 - Nausea with vomiting, unspecified Qualifiers: Vomiting type: unspecified Qualified Code(s): R11.2 - Nausea with vomiting, unspecified (6) Abdominal pain: Code(s): R10.9 - Unspecified abdominal pain Category: Medical Qualifiers: Abdominal location: right lower quadrant Qualified Code(s): R10.31 - Right lower quadrant pain (7) Constipation by delayed colonic transit: Code(s): K59.01 - Slow transit constipation Category: Medical Plan No rebound tenderness in right upper quadrant. Dilated biliary duct will send patient for HIDA scan to rule out stone. Pain not always related to food could be a biliary colic. Patient describes the pain in the right upper quadrant and refers to inflamed area, possible gas trapping pain due to food that she eats and inability to empty her bowels completely. Patient will be started on Dulcolax. However we will rule out pancreatitis, will check her thyroid study, vitamin-D, B12 and folate. Patient does admit occasional postprandial loose stools and nausea. Avoid food high in fat. Avoid food that is spicy. Avoid dietary triggers and late night snacking. Staying upright for minimum 3 hours after meals discussed with patient. Omeprazole on as needed basis. Low FODMAP diet discussed with patient. List of food recommended as well as list of food to avoid given to patient. Patient will return in 6 weeks, sooner on as needed basis. She is agreeable to this plan and verbalizes understanding of instructions. She was given the opportunity to ask questions and all questions answered. Thank you for allowing me to participate in her care Orders: Orders TSH reflex Free T4 Today K59.00 - Constipation, unspecified Lipase Today R10.9 - Unspecified abdominal pain Vitamin B12 and Folate Today R19.7 - Diarrhea, unspecified Vitamin D 25-OH (D2 and D3) Today E55.9 - Vitamin D deficiency, unspecified NM hepatobiliary wo pharm Today R10.811 - Right upper quadrant abdominal tenderness Medications: New bisacodyl (Dulcolax (bisacodyl)) 10 mg (2 x 5 mg) PO BEDTIME 180 tabs 4RF Coding Level of Care Code New Pt Level 4 (17480) Diagnoses Right upper quadrant abdominal pain R10.11 Chronic GERD K21.9 Postprandial abdominal pain in right upper quadrant R10.11 Postprandial abdominal bloating R14.0 Nausea and vomiting, unspecified vomiting type R11.2 Vomiting type: unspecified Right lower quadrant abdominal pain R10.31 Abdominal location: right lower quadrant Constipation by delayed colonic transit K59.01 Time Spent (min) 45 Comment 30 minutes spent with patient and additional 15 minutes spent reviewing her records
[2024-01-04 10:01] VITALS: BP 116/70; PULSE 74; O2SAT 98; BMI 34.9
== END 2024-01-04 10:33 | disposition home or self-care (01) ==
PROVIDERS: PCP Internal Medicine; Referring Provider Internal Medicine; Visit Provider Nurse Practitioner Family
DX: R10.11 Right upper quadrant pain (principal); K21.9 Gastro-esophageal reflux disease without esophagitis; R14.0 Abdominal distension (gaseous); R11.2 Nausea with vomiting, unspecified; R10.31 Right lower quadrant pain; K59.01 Slow transit constipation
CPT/HCPCS: 99204; 99214

== ENCOUNTER 2024-01-12 11:58 | Day surgery (SDC) | payer MEDICARE, MEDICAID, SELFPAY ==
--- NOTE | 2024-01-10 10:51 | HO.ANESPROP2 ---
Documented by User: Mary Hung NP 01/10/24 10:52 HPI - Anesthesia Eval Consult details Narrative: 63yo F for Left Sacroiliac Joint Steroid Injection s/p same 08/2023 with TIVA PMFSH Active Problems Active Problems: All Active Problems Osteoarthritis of glenohumeral joint (Acute) Atherosclerosis (Acute) Right upper quadrant abdominal pain (Acute) Spinal cord stimulator dysfunction (Acute) Sacroiliac joint dysfunction of right side (Acute) Asthma, mild persistent (Acute) Greater trochanteric bursitis of both hips (Acute) Sacroiliac joint pain (Acute) Frequent falls (Acute) Left hip pain (Acute) Encounter for general adult medical examination with abnormal findings (Acute) Osteoarthritis of right glenohumeral joint (Acute) Posterior left knee pain (Acute) Tendinopathy of right shoulder (Acute) Effusion, right knee (Acute) Restless leg syndrome (Acute) Effusion of left knee (Acute) Osteoarthritis of left knee (Acute) Right leg numbness (Acute) Arthritis of right hip (Acute) Anemia (Acute) Status post total knee replacement, right (Acute) Pre-op evaluation (Acute) Osteoarthritis of right knee (Acute) Pain management (Acute) Internal derangement of right knee (Acute) Psoriatic arthropathy (Acute) Acute pain of right knee (Acute) Medicare annual wellness visit, subsequent (Acute) S/P insertion of spinal cord stimulator (Acute) Anxiety, generalized (Acute) Leg pain, bilateral (Acute) Hand paresthesia (Acute) Obesity due to excess calories (Acute) Impingement syndrome of right shoulder (Acute) Grieving (Acute) Skin growth (Acute) Severe major depression (Acute) Flushing (Acute) Psoriatic arthritis (Acute) Chronic GERD (Acute) Difficulty sleeping (Acute) Abdominal pain (Acute) Psoriasis (Acute) Impingement syndrome, shoulder, left (Acute) Rotator cuff tendonitis (Acute) Right shoulder pain (Acute) Bursitis of right shoulder (Acute) Lipid disorder (Acute) DJD (degenerative joint disease) (Acute) Pre-diabetes (Acute) Constipation by delayed colonic transit (Acute) Asthma, moderate (Acute) Sciatica, right side (Acute) Sleeping difficulty (Acute) Periodic limb movement disorder (Acute) Depression, major, in remission (Acute) Chronic GERD (Acute) Postlaminectomy syndrome of cervical region (Acute) Postlaminectomy syndrome of lumbar region (Acute) Chronic pain syndrome (Acute) JOHN positive (Acute) Chest pain (Acute) Past Medical History Medical History History of COVID-19 Chest pain JOHN positive Chronic pain syndrome Postlaminectomy syndrome of lumbar region Postlaminectomy syndrome of cervical region Chronic GERD Depression, major, in remission Periodic limb movement disorder Sleeping difficulty Sciatica, right side Asthma, moderate Constipation by delayed colonic transit Pre-diabetes DJD (degenerative joint disease) Lipid disorder Bursitis of right shoulder Right shoulder pain Spinal stenosis Back pain Fibromyalgia Degenerative disc disease Family History Family History Father No problems noted. Mother No problems noted. Other Mental health disorder Family history of problems with anesthesia: No Surgical History Surgical History History of total right knee replacement History of lumbar fusion S/P placement of nerve stimulator History of sleeve gastrectomy History of esophagogastroduodenoscopy (EGD) H/O colonoscopy History of gastric bypass Hx of cholecystectomy H/O: hysterectomy H/O spinal fusion H/O shoulder surgery History of Problems with Anesthesia: No Social History Social History Household Members: Other Household Members Other:: son Housing: House Are you a primary critical care nurse specialist to a significant other at home: No Do you presently have visiting nurse or other home services: No Alcohol intake: current Alcohol intake frequency: holidays/special occasions only Comment: pts baseline pain is 6/10 Patient Tobacco Use Status: Former Tobacco user Tobacco use type: Cigarette Years Smoked: 30 e-Cigarette/Vaping Use: Never Used Second Hand Smoke Exposure: No Substance Use Type: Marijuana Are you DNR?: No Advance Directives: No Advance Directives Information Provided: Yes Nutrition Risks: No Nutritional Risk service: No Current occupational status: disabled Current occupation: right handed Cognitive needs: No Hearing needs: No Vision needs: Yes Meds Allergies Allergy/AdvReac Type Severity Reaction Status Date / Time adhesive tape [ADHESIVE TAPE] Allergy Severe SKIN TEARS Verified 01/12/24 12:09 pramipexole Allergy Severe Diarrhea Verified 01/12/24 12:09 adalimumab [From Humira] Allergy Intermediate Itching Verified 01/12/24 12:09 carisoprodol [From SOMA] Allergy Intermediate SWELLING, Verified 01/12/24 12:09 RASH cephalexin Allergy Intermediate Itching Verified 01/12/24 12:09 gabapentin Allergy Intermediate leg Verified 01/12/24 12:09 swelling sulfamethoxazole Allergy Intermediate SWELLING,RA Verified 01/12/24 12:09 [From BACTRIM] SH trimethoprim [From BACTRIM] Allergy Intermediate SWELLING,RA Verified 01/12/24 12:09 SH Home Medications ?Medication ?Instructions ?Recorded ?Confirmed ?Last Taken ?Type albuterol sulfate 90 mcg/actuation 2 puff inhalation Q6H PRN 10/13/20 01/12/24 Unknown History aerosol inhaler Shortness Of Breath clonidine HCl 0.1 mg tablet mg PO 01/04/24 Unknown History lamotrigine 25 mg tablet mg PO 01/04/24 Unknown History Exam Pertinent Lab Results Pertinent Lab Results: Laboratory Tests 10/03/23 11:09 WBC 10.9 H Hgb 13.4 Hct 42.7 Plt Count 370 Sodium 142 Potassium 4.6 Chloride 106 Carbon Dioxide 28 BUN 7 L Creatinine 0.66 Narrative Narrative: EKG 09/2023 NSR @ 70 Assessment and Plan Assessment Anesthesia Assessment: Chart Reviewed Final Anesthetic Review Family History of Problems with Anesthesia: No History of Problems with Anesthesia: No Documented by User: Russell Menchaca MD 01/12/24 14:43 HPI - Anesthesia Eval Consult details Narrative: 63yo F for Left hi joint Steroid Injection s/p same 08/2023 with TIVA PMFSH Active Problems Active Problems: Pool Active Problems Osteoarthritis of glenohumeral joint (Acute) Atherosclerosis (Acute) Right upper quadrant abdominal pain (Acute) Spinal cord stimulator dysfunction (Acute) Sacroiliac joint dysfunction of right side (Acute) Asthma, mild persistent (Acute) Greater trochanteric bursitis of both hips (Acute) Sacroiliac joint pain (Acute) Frequent falls (Acute) Left hip pain (Acute) Encounter for general adult medical examination with abnormal findings (Acute) Osteoarthritis of right glenohumeral joint (Acute) Posterior left knee pain (Acute) Tendinopathy of right shoulder (Acute) Effusion, right knee (Acute) Restless leg syndrome (Acute) Effusion of left knee (Acute) Osteoarthritis of left knee (Acute) Right leg numbness (Acute) Arthritis of right hip (Acute) Anemia (Acute) Status post total knee replacement, right (Acute) Pre-op evaluation (Acute) Osteoarthritis of right knee (Acute) Pain management (Acute) Internal derangement of right knee (Acute) Psoriatic arthropathy (Acute) Acute pain of right knee (Acute) Medicare annual wellness visit, subsequent (Acute) S/P insertion of spinal cord stimulator (Acute) Anxiety, generalized (Acute) Leg pain, bilateral (Acute) Hand paresthesia (Acute) Obesity due to excess calories (Acute) Impingement syndrome of right shoulder (Acute) Grieving (Acute) Skin growth (Acute) Severe major depression (Acute) Flushing (Acute) Psoriatic arthritis (Acute) Chronic GERD (Acute) Difficulty sleeping (Acute) Abdominal pain (Acute) Psoriasis (Acute) Impingement syndrome, shoulder, left (Acute) Rotator cuff tendonitis (Acute) Right shoulder pain (Acute) Bursitis of right shoulder (Acute) Lipid disorder (Acute) DJD (degenerative joint disease) (Acute) Pre-diabetes (Acute) Constipation by delayed colonic transit (Acute) Asthma, moderate (Acute) Sciatica, right side (Acute) Sleeping difficulty (Acute) Periodic limb movement disorder (Acute) Depression, major, in remission (Acute) Chronic GERD (Acute) Postlaminectomy syndrome of cervical region (Acute) Postlaminectomy syndrome of lumbar region (Acute) Chronic pain syndrome (Acute) JOHN positive (Acute) Chest pain (Acute) Past Medical History Medical History History of COVID-19 Chest pain JOHN positive Chronic pain syndrome Postlaminectomy syndrome of lumbar region Postlaminectomy syndrome of cervical region Chronic GERD Depression, major, in remission Periodic limb movement disorder Sleeping difficulty Sciatica, right side Asthma, moderate Constipation by delayed colonic transit Pre-diabetes DJD (degenerative joint disease) Lipid disorder Bursitis of right shoulder Right shoulder pain Spinal stenosis Back pain Fibromyalgia Degenerative disc disease Family History Family History Father No problems noted. Mother No problems noted. Other Mental health disorder Surgical History Surgical History History of total right knee replacement History of lumbar fusion S/P placement of nerve stimulator History of sleeve gastrectomy History of esophagogastroduodenoscopy (EGD) H/O colonoscopy History of gastric bypass Hx of cholecystectomy H/O: hysterectomy H/O spinal fusion H/O shoulder surgery Social History Social History Household Members: Other Household Members Other:: son Housing: House Are you a primary critical care nurse specialist to a significant other at home: No Do you presently have visiting nurse or other home services: No Alcohol intake: current Alcohol intake frequency: holidays/special occasions only Comment: pts baseline pain is 6/10 Patient Tobacco Use Status: Former Tobacco user Tobacco use type: Cigarette Years Smoked: 30 e-Cigarette/Vaping Use: Never Used Second Hand Smoke Exposure: No Substance Use Type: Marijuana Are you DNR?: No Advance Directives: No Advance Directives Information Provided: Yes Nutrition Risks: No Nutritional Risk service: No Current occupational status: disabled Current occupation: right handed Cognitive needs: No Hearing needs: No Vision needs: Yes Meds Allergies Allergy/AdvReac Type Severity Reaction Status Date / Time adhesive tape [ADHESIVE TAPE] Allergy Severe SKIN TEARS Verified 01/12/24 12:09 pramipexole Allergy Severe Diarrhea Verified 01/12/24 12:09 adalimumab [From Humira] Allergy Intermediate Itching Verified 01/12/24 12:09 carisoprodol [From SOMA] Allergy Intermediate SWELLING, Verified 01/12/24 12:09 RASH cephalexin Allergy Intermediate Itching Verified 01/12/24 12:09 gabapentin Allergy Intermediate leg Verified 01/12/24 12:09 swelling sulfamethoxazole Allergy Intermediate SWELLING,RA Verified 01/12/24 12:09 [From BACTRIM] SH trimethoprim [From BACTRIM] Allergy Intermediate SWELLING,RA Verified 01/12/24 12:09 SH Home Medications ?Medication ?Instructions ?Recorded ?Confirmed ?Last Taken ?Type albuterol sulfate 90 mcg/actuation 2 puff inhalation Q6H PRN 03/23/21 06/21/24 Unknown History aerosol inhaler Shortness Of Breath clonidine HCl 0.1 mg tablet mg PO 01/04/24 Unknown History lamotrigine 25 mg tablet mg PO 01/04/24 Unknown History Exam Airway Mallampati Class: II TM Dist: <=3cm Neck ROM: Full Loose/Missing/Broken Teeth: Yes and Upper Heart: ok Lungs: ok Assessment and Plan Assessment Anesthesia Assessment: Anesthesia Plan Discussed Final Anesthetic Review NPO: Yes ASA Class: III Final Preanesthetic Review: No Changes in Pt Med Stat, Meds/Allgs Chart Reviewed, Consent Obtained/Reviewed and Anes Risks/Benef Reviewed Patient Risk: Intermediate Procedure Risk: Intermediate Anesthetic Plan Anesthetic Plan: MAC:, Agree w/ Assess. and Plan and TIVA Disposition: Standard PACU
--- NOTE | ~2024-01-12 | FL_ITS ---
EXAMINATION: XR FLUOROSCOPY WITH IMAGES CLINICAL INFORMATION: Left intra-articular hip injection. COMPARISON: None available. TECHNIQUE: Fluoroscopy Supervised By: Dr. Junior Gloria. Fluoroscopy Time: 10 seconds. Cumulative Dose: 5.1127 mGy. DAP: 2.2240 Gycm2. Images: 2. FINDINGS: Intraoperative fluoroscopy and spot films were performed during a procedure in the OR. A needle is seen overlying the left hip joint with intra-articular contrast media present. Please correlate with Dr. Junior Gloria's report for complete details. FL/FL guidance in OR IMPRESSION: Intraoperative fluoroscopy and spot films were obtained. Please see Dr. Junior Gloria's report for complete details.
[2024-01-12 13:05] VITALS: BMI 35.2
[2024-01-12] MEDS: Lactated Ringers 1,000 ML 100 ML IVCONT (13:10)
--- NOTE | 2024-01-12 14:12 | MHC.SHP ---
Pre-Procedural Eval Section A - 24 Hr Update-Section A only Date of Service: 01/12/24 The patient is an INPATIENT: No Changes since office visit: Yes Patient answered all questions The patient has been examined within 24 hours of the surgical procedure. The History & Physical has been completed within 30 days and I have reviewed it.: No Section B - Complete if H&P > 30 days Chief Complaint: Sacrococcygeal disorders,sacroiliitis, Details of Present Illness: as above Relevant Family History (Specify if Yes): No Relevant Social History: None Present Medications: see Short Stay Collaborative assessment Medical History: No relevant PMH History of Previous Operations: No relevant previous surgery Allergies: Allergies Allergy/AdvReac Type Severity Reaction Status Date / Time adhesive tape [ADHESIVE TAPE] Allergy Severe SKIN TEARS Verified 01/12/24 12:09 pramipexole Allergy Severe Diarrhea Verified 01/12/24 12:09 adalimumab [From Humira] Allergy Intermediate Itching Verified 01/12/24 12:09 carisoprodol [From SOMA] Allergy Intermediate SWELLING, Verified 01/12/24 12:09 RASH cephalexin Allergy Intermediate Itching Verified 01/12/24 12:09 gabapentin Allergy Intermediate leg Verified 01/12/24 12:09 swelling sulfamethoxazole Allergy Intermediate SWELLING,RA Verified 01/12/24 12:09 [From BACTRIM] SH trimethoprim [From BACTRIM] Allergy Intermediate SWELLING,RA Verified 01/12/24 12:09 SH Review of Systems Sugical H&P ROS: Negative: Cardiovascular, Respiratory, Neurological, Psychiatric, Hem-Onc, Allergic/Immunologic, Gastrointestinal, Genitourinary, Musculoskeletal, Integumentary, Endocrine and Eyes/Ears/Nose/Throat and Yes, Specify: Constitution (obesity) Exam Surgical H&P Exam: Normal: HEENT, Normal: Heart, Normal: Lungs, Normal: Abdomen, Normal: Skin and Normal: Neurological and Significant Findings: Extremities (OA left hip joint) Plan Diagnosis/Plan: Unchanged I have reviewed the history and physical and performed a pertinent physical examination on my patient. No changes have occurred unless specified. Time Spent With Patient Time: Total time managing care of this patient today ____ minutes.
--- NOTE | 2024-01-12 14:22 | P.OP_ITS ---
Operative Note Operative Note Date of Service: 01/12/24 Narrative: Left hip steroid injection. Informed consent was explained to the patient. All questions were explained and answered. The patient was taken inside of the operating room where she was positioned right lateral decubitus on operating table.. Time-out was performed delineating patient's name and date of , correct site, side, the nature of the procedure, patient's allergy, preoperative antibiotic if needed, need for VT prophylaxis.. All operating room staff was participating in OR time-out procedure. ASA monitors were applied patient was sedated. Left hip area of the patient was prepped with ChloraPrep and draped with sterile towels. C-arm was brought over the operating field and picture of left and right lateral views of the bilateral hip joints were delineated on the screen. The smaller joint silhouette was chosen as the target. Projection of the left trochanter to the skin was chosen as the initial needle insertion point. After that the skin and subcutaneous tissues was anesthetized with 2% lidocaine 2.5 mL. 22 gauge 5 in long needle was inserted through the skin and started to advance to the joint space under intermittent lateral and anterior posterior views. When needle en tered the capsule of the joint small amount of the contrast was injected delineating intra-articular space. After that treatment solution containing 3 cc of lidocaine 2%, 2 cc of bupivacaine 0.5% and 40 mg of Kenalog was injected into the joint. The needle was withdrawn sterile dressing was applied.The patient tolerated procedure well
--- NOTE | 2024-01-12 14:23 | P.BOP_ITS ---
Brief Operative Note Date of Service: 01/12/24 Post-op diagnosis: same Procedure: Left left hip osteoarthritis, left hip pain Surgeon: Junior Gloria MD Anesthesia: MAC Was an Local [employer] Hazmat Driver used for this Procedure?: No Estimated blood loss (mL): 0 Condition: stable Disposition: PACU
[2024-01-12 15:15] VITALS: BP 123/72; PULSE 92; RESP 16; TEMP 37.4; O2SAT 94
[2024-01-12 15:20] VITALS: BP 116/80; PULSE 89; RESP 16; O2SAT 98
[2024-01-12] MEDS: Acetaminophen 325 MG TABLET 650 MG PO (15:24)
[2024-01-12 15:30] VITALS: BP 132/63; PULSE 83; RESP 16; TEMP 37.2; O2SAT 95
== END 2024-01-12 15:39 | disposition home or self-care (01) ==
PROVIDERS: PCP Internal Medicine; Visit Provider Anesthesiology
PROC: 3E0U33Z Introduction of Anti-inflammatory into Joints, Percutaneous Approach (ICD-10-PCS; CPT 27096; principal; 2024-01-12 14:10)
DX: M16.12 Unilateral primary osteoarthritis, left hip (principal); G89.4 Chronic pain syndrome; M70.62 Trochanteric bursitis, left hip; M25.552 Pain in left hip; M96.1 Postlaminectomy syndrome, not elsewhere classified; M53.3 Sacrococcygeal disorders, not elsewhere classified; M46.1 Sacroiliitis, not elsewhere classified; Z96.82 Presence of neurostimulator; Z98.1 Arthrodesis status; Z98.890 Other specified postprocedural states; M79.7 Fibromyalgia; Z91.81 History of falling; J45.909 Unspecified asthma, uncomplicated; R73.03 Prediabetes; Z79.899 Other long term (current) drug therapy; Z88.2 Allergy status to sulfonamides; Z88.1 Allergy status to other antibiotic agents; Z88.8 Allergy status to other drugs, medicaments and biological substances; L23.1 Allergic contact dermatitis due to adhesives; Z98.84 Bariatric surgery status; Z87.891 Personal history of nicotine dependence
CPT/HCPCS: 20610; J2250; J2704; J2795; J3301; Q9967

== ENCOUNTER → 2024-01-12 11:58 | Outpatient (BNV) | payer MEDICARE, MEDICAID, SELFPAY | PROVIDERS: PCP Internal Medicine; Visit Provider Anesthesiology | DX: M25.552 Pain in left hip (principal) | CPT/HCPCS: 20610; 77002 ==

== ENCOUNTER 2024-01-18 09:17 | Outpatient (AMB) | payer MEDICARE, MEDICAID, SELFPAY ==
--- NOTE | 2024-01-18 09:29 | A.OFFVIS_ITS ---
Vital Signs 01/18/24 09:36 Height 5 ft 4 in Weight 198 lb 4 oz BMI 34.0 BP 122/60 Blood Pressure Location Lt brachial Position Sitting Respiration 16 Pulse 70 Pulse Source Pulse Oximeter Pulse Oximetry (%) 97 Oxygen Delivery Method Room Air Intake Visit Reasons: S/p (L) SIJ Injection 01/12/24 Intake Note: Patient comes in for post-op appointment. Reports pain 8/10. Allergies adhesive tape [ADHESIVE TAPE] Allergy (Severe, Verified 01/18/24 09:36) SKIN TEARS pramipexole Allergy (Severe, Verified 01/18/24 09:36) Diarrhea adalimumab [From Humira] Allergy (Intermediate, Verified 01/18/24 09:36) Itching carisoprodol [From SOMA] Allergy (Intermediate, Verified 01/18/24 09:36) SWELLING, RASH cephalexin Allergy (Intermediate, Verified 01/18/24 09:36) Itching gabapentin Allergy (Intermediate, Verified 01/18/24 09:36) leg swelling sulfamethoxazole [From BACTRIM] Allergy (Intermediate, Verified 01/18/24 09:36) SWELLING,RASH trimethoprim [From BACTRIM] Allergy (Intermediate, Verified 01/18/24 09:36) SWELLING,RASH HPI Comments Details: Kaylah is back in my office after left therapeutic sacroiliac joint injection. She reports pain 8/10 today she reports that procedure did not help her pain at all. She reported minor pain improvement immediately after the procedure but pain quickly went back to preprocedure level. She requests me to perform left hip steroid injection. I explained to her that we should wait for at least 1 month to perform the procedure with steroids. I will see this patient in 1 month and I will schedule her for the left hip steroid injection. Good results of right sacroiliac joint injection on 09/01/2023. 50% pain improvement for 3 months after the procedure.. 07/27/2023 good results of intra-articular left hip steroid injection resulted in good pain relief. I explained to the patient that in the future when her pain will become stronger she is welcome to come back we will be able to perform hip steroid injection in October and sacroiliac joint injection in November of 2023. Past Procedures: 07/04/23: Left Diagnostic Sacroiliac Joint Injection-30% pain relief for 2 hours 05/09/23: Bilateral Therapeutic Greater Trochanteric Bursa injections-70% ongoing pain relief PRIOR: Patient presents today for follow up for left sided sciatica pain. Patient reports frequent falls for the past year. She had right TKA in June 2022 and injured her left knee, shoulders and back in January 2023 when she fell from [facility] per EMR review. Patient recently seen her PCP for back pain and was prescibed Percocet with minimal to moderate pain relief. She also takes NSAIDs, Asper cream roll-on, ice and heat therapy with partial results. Walking, weight bearing, bending, climbing stairs, cold weather, getting out of car or shower increases her pain. Patient reports NEVRO SCS device has been working well for her post laminectomy syndrome but not covering left leg pain. She reports back pain radiating into her left buttock, left lateral hip and left groin. I could not reproduce pain with SLR testing today. However, she has pain with provocative testing for sacroiliac joint and left hip with groin pain. There is no tenderness along her battery pocket or incisional lines in her back. She also reports mid back pain. We will proceed with updating her back imaging, evaluate SCS status and assess degree of arthritis for left hip. She is interested to receive therapeutic injection to alleviate her pain. Denies any fever, weight changes, bladder or bowel dysfunction, or saddle anesthesia. PRIOR 08/25/22 Dr. Gloria: Kaylah is very pleasant 62 years old female who is my office complaining on pain in the posterior right buttock as well as anterior thigh on the right. She is well-known in this clinic she was treated for low back pain in the past with Nevro spinal cord stimulator. According to the patient she had a fall 3 weeks ago after which the symptoms appeared. She was not sent to any x-rays. Today on physical exam attention was attracted to the fact that patient has discomfort in the projection of the ischial tuberosity as well as pain aggravation in the groin with rotation of the right hip. I will send this patient for right hip x- ray. If there are any arthritic changes I will schedule her for intra-articular right hip steroid injection. PRIOR 02/07/22 Dr. Gloria: Kaylah is 61 years old female who presents in my office today status post of the implantation of spinal cord stimulator Nevro. She received the device to be treated for symptoms of postlaminectomy syndrome. She reports excellent pain relief better mobility better activities of daily l iving better social interactions. She is very happy with her machine. However she reports that at the side of the battery she feels some discomfort, she reports that battery became loose. She became more active and she lost some weight. She also reports that when she is walking through the narrow drawers she sometimes he the battery on the doors and it aunts to her discomfort. She does not report difficulty charging the device. Unlikely therefore the device is flipped. I discussed the situation with her today. We can potentially relocated the battery into the loin of her liking from the buttock. But that would require 3 incisions to complete for me. Alternatively she can try some topicals Aspercreme with lidocaine and salicylate. I also recommend her to purchase some bedsore protection pads in the pharmacy [id number] and use it for protection of the device from external trauma. We decided that she will see me in 1 month. FOR[facility]LY [facility] Medical History History of COVID-19 Chest pain JOHN positive Chronic pain syndrome Postlaminectomy syndrome of lumbar region Postlaminectomy syndrome of cervical region Chronic GERD Depression, major, in remission Periodic limb movement disorder Sleeping difficulty Sciatica, right side Asthma, moderate Constipation by delayed colonic transit Pre-diabetes DJD (degenerative joint disease) Lipid disorder Bursitis of right shoulder Right shoulder pain Spinal stenosis Back pain Fibromyalgia Degenerative disc disease Surgical History History of total right knee replacement History of lumbar fusion S/P placement of nerve stimulator History of sleeve gastrectomy History of esophagogastroduodenoscopy (EGD) H/O colonoscopy History of gastric bypass Hx of cholecystectomy H/O: hysterectomy H/O spinal fusion H/O shoulder surgery Family History Father No problems noted. Mother No problems noted. Other Mental health disorder Social History Household Members: Other Household Members Other:: son Housing: House Are you a primary home care nurse to a significant other at home: No Do you presently have visiting nurse or other home services: No Alcohol intake: current Alcohol intake frequency: holidays/special occasions only Comment: pts baseline pain is 6/10 Patient Tobacco Use Status: Former Tobacco user Tobacco use type: Cigarette Years Smoked: 30 e-Cigarette/Vaping Use: Never Used Second Hand Smoke Exposure: No Substance Use Type: Marijuana service: No Current occupational status: disabled Current occupation: right handed Cognitive needs: No Hearing needs: No Vision needs: Yes Review of Systems Const All systems reviewed & are unremarkable except as noted in HPI and below Physical Exam Vital Signs: Last Vital Signs Pulse 70 01/18/24 09:36 Resp 16 01/18/24 09:36 BP 122/60 01/18/24 09:36 Pulse Ox 97 01/18/24 09:36 Oxygen Delivery Method Room Air 01/18/24 09:36 BMI result Body Mass Index 34.0 General: Appears afebrile. Alert and oriented. Mood and affect appropriate. Follows and participates in conversation appropriately. Respiratory effort is unlabored. No cough. Able to transition from sit to stand unassisted. Ambulates with bilaterally normal heel strike and toe off. Back/Spine/Pelvis Other: Limited lumbar ROM with flexion and extension. Facet loading test positive bilaterally. Oc?s, Pelvic compression and Stinchfield tests are positive on the right, pelvic distraction test is positive on the right, reproduce left groin and left buttock pain. Moderate left groin pain with I/E hip rotations on the left. Mild TTP at GTB bilaterally. Cervical Spine: cervical ROM normal, Cervical spine scars present and No Cervical spine tenderness Thoracic/Lumbar Spine: thoracic and lumbar spine normal to inspection, Thoracic/lumbar spine scar(s), Lasegue's sign negative, straight leg raise n egative bilaterally, pain with thoraco-lumbar ROM, paraspinal muscle tenderness, No thoracic spinal tenderness and lumbar spinal tenderness at L5 Pelvis: buttock tenderness on the left Sacroiliac joints: on the right tender, on the left tender to palpation and bilaterally tender to palpation, by compression of iliac crest, by passive hyperextension of lower ext and other (As above) Assessment & Plan Assessment & Plan (1) Postlaminectomy syndrome of lumbar region: Comment: Patient is established with [facility] Code(s): M96.1 - Postlaminectomy syndrome, not elsewhere classified Category: Medical (2) Sacroiliac joint pain: Code(s): M53.3 - Sacrococcygeal disorders, not elsewhere classified Category: Medical (3) Greater trochanteric bursitis of both hips: Code(s): M70.61 - Trochanteric bursitis, right hip; M70.62 - Trochanteric bursitis, left hip Category: Medical (4) Left hip pain: Code(s): M25.552 - Pain in left hip Category: Medical (5) Sacroiliac joint dysfunction of right side: Code(s): M53.3 - Sacrococcygeal disorders, not elsewhere classified Category: Medical Plan Reports good results of intra-articular hip steroid injection which was performed on 07/27/2023. Reports moderate to good results on sacroiliac joint injection on 09/01/2023. Reports no pain improvement on the left SI joint injection which was done on 01/12/2024. Requests me to perform left hip injection again. We can perform it 1 month from this procedure I will schedule her for the appointment in 1 month with me. Coding Level of Care Code Est Pt Level 3 (62132) Diagnoses Postlaminectomy syndrome of lumbar region M96.1 Sacroiliac joint pain M53.3 Greater trochanteric bursitis of both hips M70.61; M70.62 Left hip pain M25.552 Sacroiliac joint dysfunction of right side M53.3
[2024-01-18 09:36] VITALS: BP 122/60; PULSE 70; RESP 16; O2SAT 97; BMI 34.0
== END 2024-01-18 10:34 | disposition home or self-care (01) ==
PROVIDERS: PCP Internal Medicine; Visit Provider Anesthesiology
DX: M96.1 Postlaminectomy syndrome, not elsewhere classified (principal); M53.3 Sacrococcygeal disorders, not elsewhere classified; M70.61 Trochanteric bursitis, right hip; M70.62 Trochanteric bursitis, left hip; M25.552 Pain in left hip
CPT/HCPCS: 99213

== ENCOUNTER → 2024-01-18 09:17 | Outpatient (BNVA) | payer MEDICARE, MEDICAID, SELFPAY | PROVIDERS: PCP Internal Medicine; Visit Provider Anesthesiology | DX: M96.1 Postlaminectomy syndrome, not elsewhere classified (principal); M53.3 Sacrococcygeal disorders, not elsewhere classified; M70.61 Trochanteric bursitis, right hip; M70.62 Trochanteric bursitis, left hip; M25.552 Pain in left hip | CPT/HCPCS: 99212 ==

== ENCOUNTER → 2024-01-22 07:43 | Outpatient (REF) | payer MEDICARE, MEDICAID, SELFPAY ==
--- NOTE | ~2024-01-22 | NM_ITS ---
EXAMINATION: BILIARY TRACT IMAGING STUDY CLINICAL INFORMATION: Right upper quadrant abdominal tenderness. Patient states gallbladder resected 40 years ago.. COMPARISON: No previous biliary scan is available for comparison. Abdominal ultrasound dated 10/16/2023 is available for comparison.. TECHNIQUE: Serial gamma scintillation camera images were obtained over the abdomen for a total observation period of 60 minutes following the intravenous administration of 5 mCi Tc-99m Mebrofenin. FINDINGS: There is good concentration of activity in the liver by 5 minutes post injection. Biliary activity is visualized by 15 minutes. Small bowel is well visualized by 25 minutes. The gallbladder has been resected and is not visualized. NM/NM hepatobiliary wo pharm IMPRESSION: Normal biliary scan status post cholecystectomy. Liver function appears normal. The common bile duct is patent.
== END ==
LOC: HO.NUCMED 07:43
PROVIDERS: PCP Internal Medicine; Visit Provider Nurse Practitioner Family
DX: R10.811 Right upper quadrant abdominal tenderness (principal)
CPT/HCPCS: 78226; A9537

== ENCOUNTER 2024-02-21 10:25 | Outpatient (AMB) | payer MEDICARE, MEDICAID, SELFPAY ==
[2024-02-21 10:26] VITALS: BP 120/66; PULSE 72; O2SAT 96; BMI 34.5
--- NOTE | 2024-02-21 10:26 | A.OFFPC_ITS ---
Vital Signs 02/21/24 10:26 Height 5 ft 4 in Weight 201 lb 4 oz BMI 34.5 BP 120/66 Blood Pressure Location Rt brachial Position Sitting Pulse 72 Pulse Source Pulse Oximeter Pulse Oximetry (%) 96 Oxygen Delivery Method Room Air Intake Visit Reasons: Annual PE Allergies adhesive tape [ADHESIVE TAPE] Allergy (Severe, Verified 02/21/24 10:26) SKIN TEARS pramipexole Allergy (Severe, Verified 02/21/24 10:26) Diarrhea adalimumab [From Humira] Allergy (Intermediate, Verified 02/21/24 10:26) Itching carisoprodol [From SOMA] Allergy (Intermediate, Verified 02/21/24 10:26) SWELLING, RASH cephalexin Allergy (Intermediate, Verified 02/21/24 10:26) Itching gabapentin Allergy (Intermediate, Verified 02/21/24 10:26) leg swelling sulfamethoxazole [From BACTRIM] Allergy (Intermediate, Verified 02/21/24 10:26) SWELLING,RASH trimethoprim [From BACTRIM] Allergy (Intermediate, Verified 02/21/24 10:26) SWELLING,RASH Medication List - Last Reconciled 02/21/24 by Amaya Harris MD acetaminophen 650 mg (2 x 325 mg) PO Q6H PRN 30 days albuterol sulfate 90 mcg/actuation 2 puffs inhalation Q6H PRN bisacodyl (Dulcolax (bisacodyl)) 10 mg (2 x 5 mg) PO BEDTIME cholecalciferol (vitamin D3) 50 mcg PO DAILY 90 days cholecalciferol (vitamin D3) 1,250 mcg PO QWEEK clonazepam 1 mg PO BEDTIME 90 days clonidine HCl mg PO duloxetine 60 mg PO DAILY lamotrigine mg PO methylcellulose (laxative) (Citrucel) 500 mg PO DAILY omeprazole 20 mg PO BID PRN quetiapine (Seroquel) 50 mg (2 x 25 mg) PO BEDTIME 90 days simvastatin 40 mg PO BEDTIME 90 days tramadol 50 mg PO DAILY walker Folding Front wheeled walker Tobacco use date assessed: 02/21/24 Fall risk assessment: No Falls in past year Last assessed Fall Risk: 02/21/24 Dental Screening Dental Screen Date: 02/21/24 Did you have a dental visit in the last 12 months?: Yes Did you have a dental problem in the last 6 months where you did not have access to dental care?: No Was dental information given to patient?: Patient has dentist HPI Annual PE HPI Details 63-year-old female this is a physical ex am Mammogram up-to-date Pap smear through the to [facility] O[facility] breast exam through OBGYN as well. Colonoscopy through Gastroenterology at [facility] that was done 2021, next 1 will be in 2031 She was seeing psychiatrist for all her psychiatric medications but patient has stopped seeing him She said that she was not happy with the care that was provided, currently she is only taking quetiapine at night 50 mg And she need a refill on that I have sent refill for quetiapine as well as duloxetine 20 mg we will start with 20 mg and titrate that It was helping her with depression as well as fibromyalgia pain. I have also sent refill on simvastatin that she has stopped taking. Patient is established with gastroenterology at [facility] as well for right upper quadrant pain, workup is in process She is seeing that she was having difficulty swallowing last night, patient has appointment coming up with the gastroenterology in 2 weeks she will discuss it further with them. BMI is elevated need to lose weight. She have a history of right knee total replacement and continued to have pain She also have pain in her right shoulder with some limitation she is seeing an orthopedic doctor for that. Follow-up 2 months for duloxetine titration [facility] Medical History (Updated 02/21/24 @ 11:00 by Amaya Harris MD) History of COVID-19 Chest pain JOHN positive Chronic pain syndrome Postlaminectomy syndrome of lumbar region Postlaminectomy syndrome of cervical region Chronic GERD Periodic limb movement disorder Sleeping difficulty Sciatica, right side Asthma, moderate Constipation by delayed colonic transit Pre-diabetes DJD (degenerative joint disease) Lipid disorder Bursitis of right shoulder Right shoulder pain Spinal stenosis Back pain Fibromyalgia Degenerative disc disease Surgical History History of total right knee replacement History of lumbar fusion S/P placement of nerve stimulator History of sleeve gastrectomy History of esophagogastroduodenoscopy (EGD) H/O colonoscopy History of gastric bypass Hx of cholecystectomy H/O: hysterectomy H/O spinal fusion H/O shoulder surgery Family History Father No problems noted. Mother No problems noted. Other Mental health disorder Social History Household Members: Other Household Members Other:: son Housing: House Are you a primary clinical manager home care to a significant other at home: No Do you presently have visiting nurse or other home services: No Alcohol intake: current Alcohol intake frequency: holidays/special occasions only Comment: pts baseline pain is 6/10 Patient Tobacco Use Status: Former Tobacco user Tobacco use type: Cigarette Years Smoked: 30 e-Cigarette/Vaping Use: Never Used Second Hand Smoke Exposure: No Substance Use Type: Marijuana service: No Current occupational status: disabled Current occupation: right handed Cognitive needs: No Hearing needs: No Vision needs: Yes Questionnaire PHQ-9 Over the last 2 weeks, how often have you been bothered by any of the following problems? 1. Little interest or pleasure in doing things: more than half the days 2. Feeling down, depressed, or hopeless: nearly every day 3. Trouble falling or staying asleep, or sleeping too much: nearly every day 4. Feeling tired or having little energy: nearly every day 5. Poor appetite or overeating: several days 6. Feeling bad about yourself - or that you are a failure or have let yourself or your family down: nearly every day 7. Trouble concentrating on things, such as reading the newspaper or watching television: nearly every day 8. Moving or speaking so slowly that other people could have noticed. Or the opposite - being so fidgety or restless that you have been moving around a lot more than usual: nearly every day 9. Thoughts that you would be better off or of hurting yourself in some way: not at all Total score: 21 Depression Screening Interpretation: Positive Depression Screening Follow-up: Existing condition and In treatment Depression Screening Done: Yes 82501 - PHQ-9 Billing: Yes Source: Developed by Drs. Andrew Lamb, Julia Olivas, Alfonso Silva and colleagues, with an educational elvia from [employer]. Thrive Questionnaire Date Thrive assessed: 02/21/24 I am a: Patient What is your living situation today?: I have a place to live, but I am worried about losing it in the future Within the past 12 months, did the food you bought not last and you didn't have the money to get more?: Sometimes True Within the past 12 months, did you worry whether your food would run out before you got money to buy more?: Sometimes True Do you have trouble paying for medicines?: No Do you have trouble getting transportation to medical appointments?: No Do you have trouble paying your heating and electricity bill?: Yes Do you have trouble taking care of your child, family member or friend?: No Do you have trouble with day-to-day activities such as bathing, preparing meals, shopping, managing finances, etc.?: Yes Are you currently unemployed and looking for a job?: No Are you interested in more education?: No Please select the resources that you would like help with: Housing/Fpc and Care for elder or disabled Currently or been in a relationship where the following occur: No concerns reported THRIVE Score: 4 AUDIT C Alcohol Use Questionnaire (AUDIT-C) 1. How often do you have a drink containing alcohol?: Monthly or less 2. How many drinks containing alcohol do you have on a typical day when you are drinking?: 1 or 2 3. How often do you have six or more drinks on one occasion?: Never Total Score: 1 Score Reviewed/Action Taken: Yes CATARINA-7 AMB Questionnaire CATARINA-7 Date CATARINA - 7 assessed: 02/21/24 Feeling nervous, anxious, or on edge: 3 = Nearly every day Not being able to stop or control worryin = Nearly every day Worrying too much about different things: 3 = Nearly every day Trouble relaxin = Nearly every day Being so restless that it is hard to sit still: 0 = Not at all Becoming easily annoyed or irritable: 1 = Several days Feeling afraid as if something awful might happen: 0 = Not at all Total CATARINA-7 score (0-4 normal; 5-9 mild; 10-14 moderate; 15-21 severe): 13 Source: Developed by Drs. Andrew Lamb, Julia Olivas, Alfonso Silva and colleagues, with an educational elvia from [employer]. CATARINA-7 Assessment Billing CATARINA-7 Assessment Tool: CATARINA-7 Assessment 16824 Review of Systems Const Denies chills, Denies fever(s) and Denies headache(s) Eyes Denies blurry vision ENT Denies headache(s), Denies nasal discharge, Denies nasal obstruction, Denies odynophagia and Denies sinus pain Card Denies chest pain at rest and Denies chest pain with activity Resp Denies cough and Denies hemoptysis GI Denies diarrhea, Denies odynophagia, Denies vomiting and Denies hematemesis Reports as per HPI Musc Denies abnormal gait Skin/Breast Reports as per HPI Neuro Denies Neuro-related abnormal movements, Denies Abnormal speech present, Denies abnormal gait, Denies headache(s) and Denies Sensory deficit (Neuro) Psych Denies mood swings and Denies paranoia Endo Reports as per HPI Rajeev/Lymph Reports as per HPI Aller/Immun Reports as per HPI Physical exam (Primary Care) Vital Signs: Last Vital Signs Pulse 72 02/21/24 10:26 BP 120/66 02/21/24 10:26 Pulse Ox 96 02/21/24 10:26 Oxygen Delivery Method Room Air 02/21/24 10:26 BMI result Body Mass Index 34.5 Tobacco/Smoking Status: Tobacco use Status Tobacco use date assessed 02/21/24 02/21/24 10:27 Patient Tobacco Use Status Former Tobacco user 02/21/24 10:27 Tobacco use type Cigarette 02/21/24 10:27 e-Cigarette/Vaping Use Never Used 02/21/24 10:27 PHQ-9: PHQ-9 Score PHQ-9: Total score 21 02/21/24 11:11 Depression Screening Interpretation: Positive Depression Screening Follow-up: Existing condition and In treatment Thrive Assessment: Date of Thrive Assessment Date Thrive assessed 02/21/24 02/21/24 10:34 Currently or been in a relationship where the following occur: No concerns reported Const General: cooperative, comfortable and no acute distress Orientation/consciousness: patient oriented x3 HENMT Head: Yes normocephalic and Yes atraumatic Eyes General: appearance normal, both eyes and all related structures Pupils: Equal, round and reactive pupils present EOM: EOMs intact bilaterally Neck Neck: Yes supple and No lymphadenopathy Thyroid: Thyroid normal Lymphatic: no lymphadenopathy noted Resp Effort & Inspection: normal respiratory effort and able to speak in complete sentences Auscultation: clear to auscultation bilaterally Cardio Heart sounds: S1 normal heart sound present and S2 normal heart sound present GI Other: Tender right upper quadrant without any guarding or rebound Palpation (GI): Soft to palpation Auscultation: normal bowel sounds General: Yes no CVA tenderness Back/Spine/Pelvis Back: no CVA tenderness Skin General skin exam: elasticity normal and turgor normal Neuro Other: Failed tandem walk General: patient oriented x3 and gait normal Cranial nerves: Yes Equal, round and reactive pupils present Speech: No Abnormal speech present Sensory Exam: No Sensory deficit (Neuro) Coordination: Romberg test negative Extrem General: Yes normal exam except as noted and No edema Assessment and Plan Assessment & Plan (1) Encounter for general adult medical examination with abnormal findings: Code(s): Z00.01 - Encounter for general adult medical examination with abnormal findings (2) Severe major depression: Comment: All psychiatric medications through Psychiatry 02/21/2024: Do not want to see him anymore patient is not happy with the care Taking only quetiapine and duloxetine 20 mg restarted Code(s): F32.2 - Major depressive disorder, single episode, severe without psychotic features (3) Constipation by delayed colonic transit: Code(s): K59.01 - Slow transit constipation (4) Pre-diabetes: Comment: Diet-controlled Code(s): R73.03 - Prediabetes (5) Lipid disorder: Code(s): E78.9 - Disorder of lipoprotein metabolism, unspecified (6) Difficulty sleeping: Code(s): G47.9 - Sleep disorder, unspecified (7) Psoriatic arthropathy: Code(s): L40.50 - Arthropathic psoriasis, unspecified (8) Obesity due to excess calories: Comment: Make healthy food choices . Eat lots of fruits, vegetables, whole grains, and low-fat dairy products. Limit the amount of meat and fried or fatty foods that you eat. Be active Walk, garden, or do something active for 30 minutes or more on most days of the week. If you smoke, stop smoking. Smoking increases the chance of heart attack or stroke, or develop cancer.If you are over weight, Lose weight, Being overweight increases the risk of many health problems. Avoid alcohol Alcohol can increase blood sugar and blood pressure. Code(s): E66.09 - Other obesity due to excess calories Qualifiers: Body mass index: BMI 38.0-38.9 Obesity classification: adult class 2 (BMI 35 - 39.9) Serious obesity comorbidity presence: with serious comorbidity Qualified Code(s): E66.01 - Morbid (severe) obesity due to excess calories; Z68.38 - Body mass index [BMI] 38.0-38.9, adult Plan 63-year-old female this is a physical exam Mammogram up-to-date Pap smear through the [facility] breast exam through OBGYN as well. Colonoscopy through Gastroenterology at [facility] that was done 2021, next 1 will be in 2031 She was seeing psychiatrist for all her psychiatric medications but patient has stopped seeing him She said that she was not happy with the care that was provided, currently she is only taking quetiapine at night 50 mg And she need a refill on that I have sent refill for quetiapine as well as duloxetine 20 mg we will start with 20 mg and titrate that It was helping her with depression as well as fibromyalgia pain. I have also sent refill on simvastatin that she has stopped taking. Patient is established with gastroenterology at [facility] as well for right upper quadrant pain, workup is in process She is seeing that she was having difficulty swallowing last night, patient has appointment coming up with the gastroenterology in 2 weeks she will discuss it further with them. BMI is elevated need to lose weight. She have a history of right knee total replacement and continued to have pain She also have pain in her right shoulder with some limitation she is seeing an orthopedic doctor for that. Follow-up 2 months for duloxetine titration Medications: Changed From duloxetine 60 mg PO DAILY 90 caps 0RF To duloxetine 20 mg PO DAILY 90 caps 0RF 90 days Refilled simvastatin 40 mg PO BEDTIME 90 tabs 0RF 90 days quetiapine (Seroquel) 50 mg (2 x 25 mg) PO BEDTIME 180 tabs 0RF 90 days Discontinued clonazepam administer 30 minutes before bedtime Discontinued Reason: Doctor's Order 1 mg PO BEDTIME 90 days 90 tabs 0RF G47.61 - Periodic limb movement disorder tramadol Discontinued Reason: Patient Completed Course 50 mg PO DAILY 30 tabs 0RF Coding Level of Care Code Est Pt Level 4 (15046) Est Pt Prev Care 40-64y(98193) Diagnoses Encounter for general adult medical examination with abnormal findings Z00.01 Severe major depression F32.2 Constipation by delayed colonic transit K59.01 Pre-diabetes R73.03 Lipid disorder E78.9 Difficulty sleeping G47.9 Psoriatic arthropathy L40.50 Class 2 severe obesity due to excess calories with serious comorbidity and body mass index (BMI) of 38.0 to 38.9 in adult E66.01; Z68.38 Body mass index: BMI 38.0-38.9 Obesity classification: adult class 2 (BMI 35 - 39.9) Serious obesity comorbidity presence: with serious comorbidity Additional Codes CATARINA-7 Assessment Billing - CATARINA-7 Assessment Tool: CATARINA-7 Assessment [id number] ([id number])
== END 2024-02-21 10:57 | disposition home or self-care (01) ==
PROVIDERS: PCP Internal Medicine; Visit Provider Internal Medicine
DX: Z00.01 Encounter for general adult medical examination with abnormal findings (principal); F32.2 Major depressive disorder, single episode, severe without psychotic features; L40.50 Arthropathic psoriasis, unspecified; E66.01 Morbid (severe) obesity due to excess calories; Z68.38 Body mass index [BMI] 38.0-38.9, adult; K59.01 Slow transit constipation; R73.03 Prediabetes; E78.9 Disorder of lipoprotein metabolism, unspecified; G47.9 Sleep disorder, unspecified
CPT/HCPCS: 99214; 99396

== ENCOUNTER 2024-04-17 11:50 | Outpatient (AMB) | payer MEDICARE, MEDICAID, SELFPAY ==
[2024-04-17 11:54] VITALS: BP 138/70; PULSE 95; O2SAT 98; BMI 35.4
--- NOTE | 2024-04-17 11:54 | MHC.PC.OV ---
Vital Signs 04/17/24 11:54 Height 5 ft 4 in Weight 206 lb 8 oz BMI 35.4 BP 138/70 Blood Pressure Location Rt brachial Position Sitting Pulse 95 Pulse Source Pulse Oximeter Pulse Oximetry (%) 98 Oxygen Delivery Method Room Air Intake Visit Reasons: Anxiety and pain management Allergies adhesive tape [ADHESIVE TAPE] Allergy (Severe, Verified 04/17/24 11:56) SKIN TEARS pramipexole Allergy (Severe, Verified 04/17/24 11:56) Diarrhea adalimumab [From Humira] Allergy (Intermediate, Verified 04/17/24 11:56) Itching carisoprodol [From SOMA] Allergy (Intermediate, Verified 04/17/24 11:56) SWELLING, RASH cephalexin Allergy (Intermediate, Verified 04/17/24 11:56) Itching gabapentin Allergy (Intermediate, Verified 04/17/24 11:56) leg swelling sulfamethoxazole [From BACTRIM] Allergy (Intermediate, Verified 04/17/24 11:56) SWELLING,RASH trimethoprim [From BACTRIM] Allergy (Intermediate, Verified 04/17/24 11:56) SWELLING,RASH Medication List - Last Reconciled 04/17/24 by Amaya Harris MD acetaminophen 650 mg (2 x 325 mg) PO Q6H PRN 30 days albuterol sulfate 90 mcg/actuation 2 puffs inhalation Q6H PRN bisacodyl (Dulcolax (bisacodyl)) 10 mg (2 x 5 mg) PO BEDTIME cholecalciferol (vitamin D3) 1,250 mcg PO QWEEK duloxetine 20 mg PO DAILY 90 days methylcellulose (laxative) (Citrucel) 500 mg PO DAILY omeprazole 20 mg PO BID PRN quetiapine (Seroquel) 50 mg (2 x 25 mg) PO BEDTIME 90 days simvastatin 40 mg PO BEDTIME 90 days walker Folding Front wheeled walker Tobacco use date assessed: 04/17/24 Fall risk assessment: No Falls in past year Last assessed Fall Risk: 04/17/24 Dental Screening Dental Screen Date: 04/17/24 Did you have a dental visit in the last 12 months?: No Did you have a dental problem in the last 6 months where you did not have access to dental care?: No Was dental information given to patient?: No HPI Anxiety and pain management HPI Details 63-year-old female came in for regular follow-up appointment Patient continued to have severe pain in her hips She has an appointment coming up with the pain management May 08 Meanwhile patient is traveling to [place] for few days and is requesting medication for pain She will stop taking a leave but she is taking at home and instead we will start diclofenac 75 mg b.i.d. And tramadol 50 mg b.i.d. as needed Patient is aware of side effect of tramadol and is aware that she should take medication with food Depression: Anxiety: Difficulty sleeping : currently she is only taking quetiapine at night 50 mg Fibromyalgia, continue duloxetine, I am increasing the dose to 40 mg BMI is elevated need to lose weight. GERD is stable with omeprazole 20 mg Lipid disorder: Continue simvastatin 40 mg BMI is elevated patient is having difficulty losing weight Vitamin-D level was very low when checked December of this year, she was given supplement We will check the level today again B12 level was also borderline low she should be on B12 supplement Follow-up 3 months [facility] Medical History History of COVID-19 Chest pain JOHN positive Chronic pain syndrome Postlaminectomy syndrome of lumbar region Postlaminectomy syndrome of cervical region Chronic GERD Periodic limb movement disorder Sleeping difficulty Sciatica, right side Asthma, moderate Constipation by delayed colonic transit Pre-diabetes DJD (degenerative joint disease) Lipid disorder Bursitis of right shoulder Right shoulder pain Spinal stenosis Back pain Fibromyalgia Degenerative disc disease Surgical History History of total right knee replacement History of lumbar fusion S/P placement of nerve stimulator History of sleeve gastrectomy History of esophagogastroduodenoscopy (EGD) H/O colonoscopy History of gastric bypass Hx of cholecystectomy H/O: hysterectomy H/O spinal fusion H/O shoulder surgery Family History Father No problems noted. Mother No problems noted. Other Mental health disorder Social History Household Members: Other Household Members Other:: son Housing: House Are you a primary resident care aide to a significant other at home: No Do you presently have visiting nurse or other home services: No Alcohol intake: current Alcohol intake frequency: holidays/special occasions only Comment: pts baseline pain is 6/10 Patient Tobacco Use Status: Former Tobacco user Tobacco use type: Cigarette Years Smoked: 30 e-Cigarette/Vaping Use: Never Used Second Hand Smoke Exposure: No Substance Use Type: Marijuana service: No Current occupational status: disabled Current occupation: right handed Cognitive needs: No Hearing needs: No Vision needs: Yes Questionnaire PHQ-9 Over the last 2 weeks, how often have you been bothered by any of the following problems? 1. Little interest or pleasure in doing things: not at all 2. Feeling down, depressed, or hopeless: not at all 3. Trouble falling or staying asleep, or sleeping too much: not at all 4. Feeling tired or having little energy: not at all 5. Poor appetite or overeating: not at all 6. Feeling bad about yourself - or that you are a failure or have let yourself or your family down: not at all 7. Trouble concentrating on things, such as reading the newspaper or watching television: not at all 8. Moving or speaking so slowly that other people could have noticed. Or the opposite - being so fidgety or restless that you have been moving around a lot more than usual: not at all 9. Thoughts that you would be better off or of hurting yourself in some way: not at all Total score: 0 Depression Screening Interpretation: Negative Depression Screening Done: Yes 24020 - PHQ-9 Billing: Yes Source: Developed by Drs. Andrew Lamb, Julia Olivas, Alfonso Silva and colleagues, with an educational elvia from [employer]. Thrive Questionnaire Date Thrive assessed: 04/17/24 I am a: Patient What is your living situation today?: I have a place to live, but I am worried about losing it in the future Within the past 12 months, did the food you bought not last and you didn't have the money to get more?: Often true Within the past 12 months, did you worry whether your food would run out before you got money to buy more?: Sometimes True Do you have trouble paying for medicines?: No Do you have trouble getting transportation to medical appointments?: No Do you have trouble paying your heating and electricity bill?: Yes Do you have trouble taking care of your child, family member or friend?: No Do you have trouble with day-to-day activities such as bathing, preparing meals, shopping, managing finances, etc.?: Yes Are you currently unemployed and looking for a job?: No Are you interested in more education?: No Please select the resources that you would like help with: None Currently or been in a relationship where the following occur: No concerns reported THRIVE Score: 4 AUDIT C Alcohol Use Questionnaire (AUDIT-C) 1. How often do you have a drink containing alcohol?: Never 3. How often do you have six or more drinks on one occasion?: Never Total Score: 0 Score Reviewed/Action Taken: Yes CATARINA-7 AMB Questionnaire CATARINA-7 Date CATARINA - 7 assessed: 02/21/24 Source: Developed by Drs. Andrew Lamb, Julia Olivas, Alfonso Silva and colleagues, with an educational elvia from [employer]. Review of Systems Const Denies chills and Denies fever(s) ENT Denies epistaxis and Denies nasal discharge Card Denies chest pain Resp Denies chest congestion, Denies cough and Denies hemoptysis GI Denies diarrhea and Denies nausea Skin/Breast Denies rash Neuro Reports no additional complaints Psych Reports no additional complaints Endo Reports no additional complaints Physical exam (Primary Care) Vital Signs: Last Vital Signs Pulse 95 04/17/24 11:54 BP 138/70 04/17/24 11:54 Pulse Ox 98 04/17/24 11:54 Oxygen Delivery Method Room Air 04/17/24 11:54 BMI result Body Mass Index 35.4 Tobacco/Smoking Status: Tobacco use Status Tobacco use date assessed 04/17/24 04/17/24 11:58 Patient Tobacco Use Status Former Tobacco user 04/17/24 11:58 Tobacco use type Cigarette 04/17/24 11:58 e-Cigarette/Vaping Use Never Used 04/17/24 11:58 PHQ-9: PHQ-9 Score PHQ-9: Total score 0 04/17/24 12:21 Depression Screening Interpretation: Negative Thrive Assessment: Date of Thrive Assessment Date Thrive assessed 04/17/24 04/17/24 11:58 Currently or been in a relationship where the following occur: No concerns reported Const General: cooperative, comfortable and no acute distress Orientation/consciousness: patient oriented x3 HENMT Head: Yes normocephalic Eyes General: appearance normal, both eyes and all related structures Neck Neck: Yes supple Resp Effort & Inspection: normal respiratory effort, no cough and no stridor Cardio Rhythm: regular rhythm Heart sounds: S1 normal heart sound present and S2 normal heart sound present Skin General skin exam: turgor normal Neuro General: patient oriented x3, tone normal and moves all extremities Extrem Right lower extremity: no edema Left lower extremity: no edema Assessment and Plan Assessment & Plan (1) Psoriatic arthritis: Code(s): L40.50 - Arthropathic psoriasis, unspecified (2) Severe major depression: Comment: All psychiatric medications through Psychiatry 02/21/2024: Do not want to see him anymore patient is not happy with the care Taking only quetiapine and duloxetine 20 mg restarted Code(s): F32.2 - Major depressive disorder, single episode, severe without psychotic features (3) Asthma, moderate: Code(s): J45.909 - Unspecified asthma, uncomplicated Qualifiers: Asthma complication type: uncomplicated Asthma persistence: persistent Qualified Code(s): J45.40 - Moderate persistent asthma, uncomplicated (4) Vitamin D deficiency: Code(s): E55.9 - Vitamin D deficiency, unspecified (5) B12 deficiency: Code(s): E53.8 - Deficiency of other specified B group vitamins (6) Anxiety, generalized: Code(s): F41.1 - Generalized anxiety disorder (7) Pre-diabetes: Comment: Diet-controlled Code(s): R73.03 - Prediabetes (8) Lipid disorder: Code(s): E78.9 - Disorder of lipoprotein metabolism, unspecified (9) Psoriasis: Code(s): L40.9 - Psoriasis, unspecified (10) Chronic GERD: Code(s): K21.9 - Gastro-esophageal reflux disease without esophagitis (11) Difficulty sleeping: Code(s): G47.9 - Sleep disorder, unspecified (12) Obesity due to excess calories: Comment: Make healthy food choices . Eat lots of fruits, vegetables, whole grains, and low-fat dairy products. Limit the amount of meat and fried or fatty foods that you eat. Be active Walk, garden, or do something active for 30 minutes or more on most days of the week. If you smoke, stop smoking. Smoking increases the chance of heart attack or stroke, or develop cancer.If you are over weight, Lose weight, Being overweight increases the risk of many health problems. Avoid alcohol Alcohol can increase blood sugar and blood pressure. Code(s): E66.09 - Other obesity due to excess calories Qualifiers: Body mass index: BMI 38.0-38.9 Obesity classification: adult class 2 (BMI 35 - 39.9) Serious obesity comorbidity presence: with serious comorbidity Qualified Code(s): E66.01 - Morbid (severe) obesity due to excess calories; Z68.38 - Body mass index [BMI] 38.0-38.9, adult Plan 63-year-old female came in for regular follow-up appointment Patient continued to have severe pain in her hips She has an appointment coming up with the pain management May 08 Meanwhile patient is traveling to [place] for few days and is requesting medication for pain She will stop taking a leave but she is taking at home and instead we will start diclofenac 75 mg b.i.d. And tramadol 50 mg b.i.d. as needed Patient is aware of side effect of tramadol and is aware that she should take medication with food Depression: Anxiety: Difficulty sleeping : currently she is only taking quetiapine at night 50 mg Fibromyalgia, continue duloxetine, I am increasing the dose to 40 mg BMI is elevated need to lose weight. GERD is stable with omeprazole 20 mg Lipid disorder: Continue simvastatin 40 mg BMI is elevated patient is having difficulty losing weight Vitamin-D level was very low when checked December of this year, she was given supplement We will check the level today again B12 level was also borderline low she should be on B12 supplement Follow-up 3 months 45 minute spent in care of this patient Including reviewing chart, previous labs, [id number] with the patient, coordination care Orders: Orders Vitamin D 25-OH (D2 and D3) Today E78.9 - Disorder of lipoprotein metabolism, unspecified, F32.2 - Major depressive disorder, single episode, severe without psychotic features, F41.1 - Generalized anxiety disorder, J45.40 - Moderate persistent asthma, uncomplicated, K21.9 - Gastro-esophageal reflux disease without esophagitis, L40.50 - Arthropathic psoriasis, unspecified, L40.9 - Psoriasis, unspecified, R73.03 - Prediabetes Vitamin B12 Today E78.9 - Disorder of lipoprotein metabolism, unspecified, F32.2 - Major depressive disorder, single episode, severe without psychotic features, F41.1 - Generalized anxiety disorder, J45.40 - Moderate persistent asthma, uncomplicated, K21.9 - Gastro-esophageal reflux disease without esophagitis, L40.50 - Arthropathic psoriasis, unspecified, L40.9 - Psoriasis, unspecified, R73.03 - Prediabetes Complete Blood Count Auto Diff Today E78.9 - Disorder of lipoprotein metabolism, unspecified, F32.2 - Major depressive disorder, single episode, severe without psychotic features, F41.1 - Generalized anxiety disorder, J45.40 - Moderate persistent asthma, uncomplicated, K21.9 - Gastro-esophageal reflux disease without esophagitis, L40.50 - Arthropathic psoriasis, unspecified, L40.9 - Psoriasis, unspecified, R73.03 - Prediabetes Comprehensive Met. Panel Today E78.9 - Disorder of lipoprotein metabolism, unspecified, F32.2 - Major depressive disorder, single episode, severe without psychotic features, F41.1 - Generalized anxiety disorder, J45.40 - Moderate persistent asthma, uncomplicated, K21.9 - Gastro-esophageal reflux disease without esophagitis, L40.50 - Arthropathic psoriasis, unspecified, L40.9 - Psoriasis, unspecified, R73.03 - Prediabetes LDL Cholesterol Direct Today E78.9 - Disorder of lipoprotein metabolism, unspecified, F32.2 - Major depressive disorder, single episode, severe without psychotic features, F41.1 - Generalized anxiety disorder, J45.40 - Moderate persistent asthma, uncomplicated, K21.9 - Gastro-esophageal reflux disease without esophagitis, L40.50 - Arthropathic psoriasis, unspecified, L40.9 - Psoriasis, unspecified, R73.03 - Prediabetes Medications: New diclofenac sodium 75 mg PO BID PRN 30 tabs 0RF pain 15 days tramadol 50 mg PO BID PRN 30 tabs 0RF pain 15 days Changed From duloxetine 20 mg PO DAILY 90 days 90 caps 0RF To duloxetine 40 mg PO DAILY 90 caps 0RF 90 days Coding Level of Care Code Est Pt Level 5 (70883) Complex EM visit Add On G2211 Diagnoses Psoriatic arthritis L40.50 Severe major depression F32.2 Moderate persistent asthma without complication J45.40 Asthma complication type: uncomplicated Asthma persistence: persistent Vitamin D deficiency E55.9 B12 deficiency E53.8 Anxiety, generalized F41.1 Pre-diabetes R73.03 Lipid disorder E78.9 Psoriasis L40.9 Chronic GERD K21.9 Difficulty sleeping G47.9 Class 2 severe obesity due to excess calories with serious comorbidity and body mass index (BMI) of 38.0 to 38.9 in adult E66.01; Z68.38 Body mass index: BMI 38.0-38.9 Obesity classification: adult class 2 (BMI 35 - 39.9) Serious obesity comorbidity presence: with serious comorbidity
== END 2024-04-17 12:16 | disposition home or self-care (01) ==
PROVIDERS: PCP Internal Medicine; Visit Provider Internal Medicine
DX: L40.50 Arthropathic psoriasis, unspecified (principal); F32.2 Major depressive disorder, single episode, severe without psychotic features; E66.01 Morbid (severe) obesity due to excess calories; Z68.38 Body mass index [BMI] 38.0-38.9, adult; J45.40 Moderate persistent asthma, uncomplicated; E55.9 Vitamin D deficiency, unspecified; E53.8 Deficiency of other specified B group vitamins; F41.1 Generalized anxiety disorder; R73.03 Prediabetes; E78.9 Disorder of lipoprotein metabolism, unspecified; L40.9 Psoriasis, unspecified; K21.9 Gastro-esophageal reflux disease without esophagitis

== ENCOUNTER → 2024-04-17 11:50 | Outpatient (BNVA) | payer MEDICARE, MEDICAID, SELFPAY | PROVIDERS: PCP Internal Medicine; Visit Provider Internal Medicine | DX: L40.50 Arthropathic psoriasis, unspecified (principal); F32.2 Major depressive disorder, single episode, severe without psychotic features; J45.40 Moderate persistent asthma, uncomplicated; E55.9 Vitamin D deficiency, unspecified; E53.8 Deficiency of other specified B group vitamins; F41.1 Generalized anxiety disorder; R73.03 Prediabetes; E78.9 Disorder of lipoprotein metabolism, unspecified; L40.9 Psoriasis, unspecified; K21.9 Gastro-esophageal reflux disease without esophagitis; E66.01 Morbid (severe) obesity due to excess calories; Z68.38 Body mass index [BMI] 38.0-38.9, adult; Z71.3 Dietary counseling and surveillance | CPT/HCPCS: 96127; 99212 ==

== ENCOUNTER 2024-04-18 10:26 | Outpatient (REF) | payer MEDICARE, MEDICAID, SELFPAY ==
[2024-04-18 13:05] LABS: MANUAL DIFF FLAG NO
[2024-04-18 13:23] LABS: Basophils Absolute Auto 0.1 X10*3/uL (0.0-0.2); Basophils Percent Auto 1.2 % (0-2); Eosinophils Absolute Auto 0.3 X10*3/uL (0.0-0.4); Eosinophils Percent Auto 2.5 % (0-4); Hematocrit 38.5 % (37.0-47.0); Hemoglobin 12.1 g/dl (12.0-16.0); Imm Gran Abs Auto 0.04 X10*3/uL (0.00-0.03); Imm Gran Pct Auto 0.4 % (0.0-0.4); Lymphocytes Absolute Auto 2.6 X10*3/uL (1.2-4.9); Lymphocytes Percent Auto 26.4 % (20-40); Mean Corpuscular HGB Conc 31.4 g/dl (31.0-35.0); Mean Corpuscular Hemoglobin 27.6 pg (27.0-33.0); Mean Corpuscular Volume 87.9 fL (80.0-98.0); Mean Platelet Volume 11.2 fL (9.4-12.3); Monocytes Absolute Auto 0.8 X10*3/uL (0.1-1.2); Monocytes Percent Auto 8.5 % (2-11); Platelet Count 311 X10*3/uL (160-400); Red Blood Count 4.38 X10*6/uL (4.20-5.50); Red Cell Distribution Width 13.7 % (11.0-16.0); White Blood Count 9.8 X10*3/uL (4.8-10.8)
[2024-04-18 13:48] LABS: Alanine Aminotransferase 10 U/L (0-31); Albumin Level 4.2 g/dL (3.5-5.0); Alkaline Phosphatase 69 U/L (39-117); Anion Gap 11 (12-20); Aspartate Amino Transferase 13 U/L (5-31); Bilirubin Total 0.2 mg/dL (0.0-1.0); Blood Urea Nitrogen 14 mg/dL (9-16); Calcium 9.8 mg/dL (8.4-10.2); Carbon Dioxide 29 mmol/L (22-29); Chloride 107 mmol/L (96-108); Estimated Glomerular Filt Rate > 60; Glucose Random 82 mg/dL (60-115); Potassium 4.7 mmol/L (3.3-5.1); Sodium 142 mmol/L (135-145); Total Protein 7.2 g/dL (6.5-8.0)
[2024-04-18 14:10] LABS: Vitamin B12 308 pg/mL (200-900)
[2024-04-19 17:58] LABS: LDL Cholesterol Direct 118 mg/dL (<100)
[2024-04-22 15:38] LABS: Vitamin D 25-OH, D2 <4 ng/mL; Vitamin D 25-OH, D3 49 ng/mL; Vitamin D 25-OH, Total 49 ng/mL (30-100)
== END 2024-04-18 10:27 | disposition home or self-care (01) ==
LOC: HO.HMGCLDS 10:26
PROVIDERS: PCP Internal Medicine; Visit Provider Internal Medicine
DX: F41.1 Generalized anxiety disorder (principal); F32.2 Major depressive disorder, single episode, severe without psychotic features; L40.50 Arthropathic psoriasis, unspecified; K21.9 Gastro-esophageal reflux disease without esophagitis; L40.9 Psoriasis, unspecified; E78.9 Disorder of lipoprotein metabolism, unspecified; R73.03 Prediabetes; J45.40 Moderate persistent asthma, uncomplicated
CPT/HCPCS: 36415; 80053; 82306; 82607; 83721; 85025

== ENCOUNTER → 2024-05-01 08:31 | Outpatient (RCR) | payer MEDICARE, MEDICAID, SELFPAY ==
--- NOTE | 2023-03-09 10:05 | MHC.PT.EP ---
[facility] [place] Office [place] Office [place] Office [address] Gabbie Nuno [address] [phone] F: [phone] F: [phone] F: [phone] F: [phone] Physical Therapy Plan of Care Date of Evaluation: Date of Surgery: Diagnosis: tendinopathy of right shoulder Assessment: Patient is a 62 year old R handed female who presents with s/s consistent with R shoulder tendinopathy, pain as a result of a fall out of a camper. 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 Patient past medical history includes TKA, b/l shoulder surgery, spinal stimulator and fibromyalgia among other co-morbidities. Current impairments include pain, posture, ROM, strength, activity tolerance and functional mobility. Functional limitations include decreased ability to reach, lift, carry, sleep, and provide childcare. Patient is motivated with good rehab potential. Skilled PT will address impairments and functional limitations in order to achieve goals. Frequency and Duration: The patient will be seen 2x/week for 5 weeks Short Term Goals: I with HEP - 2 weeks AROM flexion to 120, abd to 100 pain free - 3 weeks ER to 55 - 3 weeks Labor Gang Supervisor Goals: Strength 4/5 grossly - 5 weeks SPADI 55/130 - 5 weeks AROM flexion 130, abd 110, ER 60, IR apley to T12 - 5 weeks Treatment Plan: Modalities to reduce pain, spasms and effusion. Manual therapy to restore motion and function. Therapeutic exercise to improve strength and flexibility. Neuromuscular re-education for posture and balance. Therapeutic activities to return to functional activities of daily living. Electronically signed by: Raffi Tamez, PT Please sign and return to therapist. Thank you for your referral.
--- NOTE | 2024-05-01 08:31 | MHC.PT.DC ---
[facility] [place] [facility] [place] [facility] [place] [facility] [address] Gabbie Nuno [address] [phone] F: [phone] F: [phone] F: [phone] F: [phone] Physical Therapy Discharge Report Diagnosis: tendinopathy of right shoulder Date of Surgery: Date of Evaluation: 03/09/23 Date of Discharge: 04/28/23 Treatments to Date: 4 Cancellations to Date: No Shows to Date: Discharge Status: Patient Elected to Stop Discharge Summary: 03/23; Pt mobility didn't set back from fall, but c/o AC jt pain with greater than 90 degrees adb/flex. 03/13/23: pt has been doing HEP. MRI scheduled for . proceeding cautiously until MRI. Patient is a 62 year old R handed female who presents with s/s consistent with R shoulder tendinopathy, pain as a result of a fall out of a camper. 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 Patient past medical history includes TKA, b/l shoulder surgery, spinal stimulator and fibromyalgia among other co-morbidities. Current impairments include pain, posture, ROM, strength, activity tolerance and functional mobility. Functional limitations include decreased ability to reach, lift, carry, sleep, and provide childcare. Patient is motivated with good rehab potential. Skilled PT will address impairments and functional limitations in order to achieve goals. Electronically signed by: Raffi Tamez, PT Please sign and return to therapist. Thank you for your referral.
== END | disposition home or self-care (01) ==
LOC: HO.PTCHIC 03-09 08:55
PROVIDERS: PCP Internal Medicine; Visit Provider Orthopaedic Surgery
DX: M67.911 Unspecified disorder of synovium and tendon, right shoulder (principal)
CPT/HCPCS: 97110; 97140; 97163

== ENCOUNTER 2024-05-08 09:30 | Outpatient (AMB) | payer MEDICARE, MEDICAID, SELFPAY ==
--- NOTE | 2024-05-08 09:35 | MHC.OFFVIS ---
Vital Signs 05/08/24 09:48 Height 5 ft 4 in Weight 201 lb 6 oz BMI 34.6 BP 128/60 Blood Pressure Location Lt brachial Position Sitting Respiration 14 Pulse 83 Pulse Source Pulse Oximeter Pulse Oximetry (%) 97 Oxygen Delivery Method Room Air Intake Visit Reasons: Discussion of SIJ vs Hip Steroid Injection Intake Note: Patient comes in to discuss injection. Reports pain 6-7. Allergies adhesive tape [ADHESIVE TAPE] Allergy (Severe, Verified 05/08/24 09:50) SKIN TEARS pramipexole Allergy (Severe, Verified 05/08/24 09:50) Diarrhea adalimumab [From Humira] Allergy (Intermediate, Verified 05/08/24 09:50) Itching carisoprodol [From SOMA] Allergy (Intermediate, Verified 05/08/24 09:50) SWELLING, RASH cephalexin Allergy (Intermediate, Verified 05/08/24 09:50) Itching gabapentin Allergy (Intermediate, Verified 05/08/24 09:50) leg swelling sulfamethoxazole [From BACTRIM] Allergy (Intermediate, Verified 05/08/24 09:50) SWELLING,RASH trimethoprim [From BACTRIM] Allergy (Intermediate, Verified 05/08/24 09:50) SWELLING,RASH HPI Comments Details: Kaylah is back in my office with complains on different pain generators mostly related to his pelvis. Day she reports pain in the projection of the ischial bursa on the right. She before Claude did complain on pain like this. We discussed possibility of helping her pain with continuous injections. It does not look like that sacroiliac joint injections or hip injections will be instrumental to help this pain. I decided to send this patient for bony pelvis CT. When it will be done in read I will invite her for an appointment to discuss the findings. Hip injection seem to be not instrumental to help her pain. Sacroiliac joint injections were helping in the past but now I think with this new pain pattern might not be effective for her pain. Past Procedures: 07/04/23: Left Diagnostic Sacroiliac Joint Injection-30% pain relief for 2 hours 05/09/23: Bilateral Therapeutic Greater Trochanteric Bursa injections-70% ongoing pain relief PRIOR: Patient presents today for follow up for left sided sciatica pain. Patient reports frequent falls for the past year. She had right TKA in June 2022 and injured her left knee, shoulders and back in January 2023 when she fell from [facility] per EMR review. Patient recently seen her PCP for back pain and was prescibed Percocet with minimal to moderate pain relief. She also takes NSAIDs, Asper cream roll-on, ice and heat therapy with partial results. Walking, weight bearing, bending, climbing stairs, cold weather, getting out of car or shower increases her pain. Patient reports NEVRO SCS device has been working well for her post laminectomy syndrome but not covering left leg pain. She reports back pain radiating into her left buttock, left lateral hip and left groin. I could not reproduce pain with SLR testing today. However, she has pain with provocative testing for sacroiliac joint and left hip with groin pain. There is no tenderness along her battery pocket or incisional lines in her back. She also reports mid back pain. We will proceed with updating her back imaging, evaluate SCS status and assess degree of arthritis for left hip. She is interested to receive therapeutic injection to alleviate her pain. Denies any fever, weight changes, bladder or bowel dysfunction, or saddle anesthesia. PRIOR 08/25/22 Kaylah is very pleasant 62 years old female who is my office complaining on pain in the posterior right buttock as well as anterior thigh on the right. She is well-known in this clinic she was treated for low back pain in the past with Nevro spinal cord stimulator. According to the patient she had a fall 3 weeks ago after which the symptoms appeared. She was not sent to any x-rays. Today on physical exam attention was attracted to the fact that patient has discomfort in the projection of the ischial tuberosity as well as pain aggravation in the groin with rotation of the right hip. I will send this patient for right hip x-ray. If there are any arthritic changes I will schedule her for intra-articular right hip steroid injection. PRIOR 02/07/22 Dr. Gloria: Kaylah is 61 years old female who presents in my office today status post of the implantation of spinal cord stimulator Nevro. She received the device to be treated for symptoms of postlaminectomy syndrome. She reports excellent pain relief better mobility better activities of daily living better social interactions. She is very happy with her machine. However she reports that at the side of the battery she feels some discomfort, she reports that battery became loose. She became more active and she lost some weight. She also reports that when she is walking through the narrow drawers she sometimes he the battery on the doors and it aunts to her discomfort. She does not report difficulty charging the device. Unlikely therefore the device is flipped. I discussed the situation with her today. We can potentially relocated the battery into the loin of her liking from the buttock. But that would require 3 incisions to complete for me. Alternatively she can try some topicals Aspercreme with lidocaine and salicylate. I also recommend her to purchase some bedsore protection pads in the pharmacy [id number] and use it for protection of the device from external trauma. We decided that she will see me in 1 month. [facility] Medical History History of COVID-19 Chest pain JOHN positive Chronic pain syndrome Postlaminectomy syndrome of lumbar region Postlaminectomy syndrome of cervical region Chronic GERD Periodic limb movement disorder Sleeping difficulty Sciatica, right side Asthma, moderate Constipation by delayed colonic transit Pre-diabetes DJD (degenerative joint disease) Lipid disorder Bursitis of right shoulder Right shoulder pain Spinal stenosis Back pain Fibromyalgia Degenerative disc disease Surgical History History of total right knee replacement History of lumbar fusion S/P placement of nerve stimulator History of sleeve gastrectomy History of esophagogastroduodenoscopy (EGD) H/O colonoscopy History of gastric bypass Hx of cholecystectomy H/O: hysterectomy H/O spinal fusion H/O shoulder surgery Family History Father No problems noted. Mother No problems noted. Other Mental health disorder Social History Household Members: Other Household Members Other:: son Housing: House Are you a primary nursing care attendant to a significant other at home: No Do you presently have visiting nurse or other home services: No Alcohol intake: current Alcohol intake frequency: holidays/special occasions only Comment: pts baseline pain is 6/10 Patient Tobacco Use Status: Former Tobacco user Tobacco use type: Cigarette Years Smoked: 30 e-Cigarette/Vaping Use: Never Used Second Hand Smoke Exposure: No Substance Use Type: Marijuana service: No Current occupational status: disabled Current occupation: right handed Cognitive needs: No Hearing needs: No Vision needs: Yes Review of Systems Const All systems reviewed & are unremarkable except as noted in HPI and below Physical Exam Vital Signs: Last Vital Signs Pulse 83 05/08/24 09:48 Resp 14 05/08/24 09:48 BP 128/60 05/08/24 09:48 Pulse Ox 97 05/08/24 09:48 Oxygen Delivery Method Room Air 05/08/24 09:48 BMI result Body Mass Index 34.6 General: Appears afebrile. Alert and oriented. Mood and affect appropriate. Follows and participates in conversation appropriately. Respiratory effort is unlabored. No cough. Able to transition from sit to stand unassisted. Ambulates with bilaterally normal heel strike and toe off. Back/Spine/Pelvis Other: Limited lumbar ROM with flexion and extension. Facet loading test positive bilaterally. Oc?s, Pelvic compression and Stinchfield tests are positive on the right, pelvic distraction test is positive on the right, reproduce left groin and left buttock pain. Moderate left groin pain with I/E hip rotations on the left. Mild TTP at GTB bilaterally. Tenderness on palpation in projection of the right ischial bursa. Cervical Spine: cervical ROM normal, Cervical spine scars present and No Cervical spine tenderness Thoracic/Lumbar Spine: thoracic and lumbar spine normal to inspection, Thoracic/lumbar spine scar(s), Lasegue's sign negative, straight leg raise negative bilaterally, pain with thoraco-lumbar ROM, paraspinal muscle tenderness, No thoracic spinal tenderness and lumbar spinal tenderness at L5 Pelvis: buttock tenderness on the left Sacroiliac joints: on the right tender, on the left tender to palpation and bilaterally tender to palpation, by compression of iliac crest, by passive hyperextension of lower ext and other (As above) Results Reviewed Results Reviewed: XR THORACIC SPINE, 3 VIEWS XR LUMBAR SPINE, 3 VIEWS 04/17/23 CLINICAL INFORMATION: Postlaminectomy syndrome COMPARISON: Lumbar spine radiograph from 05/11/2020 FINDINGS: 5 nonrib-bearing lumbar-type vertebral bodies with diminutive T12 ribs. No acute visible fracture or dislocation. Status post posterior spinal fusion of L5-S1 with bilateral transpedicular screws and interconnecting rods. Status post anterior and posterior fusion of C3-C5. Spinal hardware is grossly intact. Spinal stimulator overlying the right iliac fossa with its leads coursing cranially entering at the level of L1-L2 and terminating at T9. Multilevel degenerative changes with disc space narrowing, osteophyte formation, and facet arthropathy. Vertebral body heights and disc spaces are maintained. Posterior elements are intact. Paraspinal soft tissues are unremarkable. Visualized bowel gas is unremarkable. IMPRESSION: 1. No acute visible fracture or dislocation. 2. Status post posterior spinal fusion of L5-S1 with bilateral transpedicular screws and interconnecting rods. 3. Status post anterior and posterior fusion of C3-C5. 4. Spinal stimulator overlying the right iliac fossa with its leads coursing cranially entering at the level of L1-L2 and terminating at T9. 5. Multilevel degenerative changes. XR HIP, LEFT 04/17/23 CLINICAL INFORMATION: Pain FINDINGS: No acute visible fracture or dislocation. Degenerative arthropathy of the bilateral femoral acetabular joints with joint space narrowing and enthesopathy along the bilateral greater trochanters. Spinal stimulator overlying the right iliac fossa with its leads transmitting cranially. Lower lumbar spinal hardware redemonstrated. Joint spaces and alignment are otherwise maintained. Soft tissues are unremarkable. Pelvic phleboliths are noted. IMPRESSION: 1. No acute visible fracture or dislocation. 2. Degenerative arthropathy of the bilateral femoral acetabular joints. XR HIP, RIGHT 08/25/22 FINDINGS: Right hip joint: Joint space remains normal. No fracture or bone lesion. Small pulmonary focus of calcific or ossific density just posterior to the trochanteric region unchanged compared to prior examinations. Incidental note made of a electronic device with wire overlying the right pelvis is not seen previously. IMPRESSION: 1. No evidence of osteoarthritis of the right hip. 2. Small focus of calcific or ossific density just posterior to the trochanteric region unchanged compared to prior examinations. This could reflect calcific tendinitis or tendinosis. XR/XR sacroiliac joint min 3V 01/18/21 IMPRESSION: No significant sacroiliac joint abnormality appreciated. Status post transpedicular fusion L5-S1. Assessment & Plan Assessment & Plan (1) Sacroiliitis: Code(s): M46.1 - Sacroiliitis, not elsewhere classified Category: Medical (2) Chronic left SI joint pain: Code(s): M53.3 - Sacrococcygeal disorders, not elsewhere classified; G89.29 - Other chronic pain Category: Medical (3) Greater trochanteric bursitis of both hips: Code(s): M70.61 - Trochanteric bursitis, right hip; M70.62 - Trochanteric bursitis, left hip Category: Medical (4) Sacroiliac joint pain: Code(s): M53.3 - Sacrococcygeal disorders, not elsewhere classified Category: Medical (5) Sacroiliac joint dysfunction of right side: Code(s): M53.3 - Sacrococcygeal disorders, not elsewhere classified Category: Medical (6) Ischial bursitis of right side: Code(s): M70.71 - Other bursitis of hip, right hip Category: Medical Plan Sent patient for the CT bony pelvis to investigate possibility of pain coming from the right ischial bursa and also evaluate again her sacroiliac joints. I will see this patient in [address] bony pelvis is done and read. Orders: Orders CT bony pelvis 05/08/24 G89.29 - Other chronic pain, M46.1 - Sacroiliitis, not elsewhere classified, M53.3 - Sacrococcygeal disorders, not elsewhere classified, M70.61 - Trochanteric bursitis, right hip, M70.62 - Trochanteric bursitis, left hip, M70.71 - Other bursitis of hip, right hip Coding Level of Care Code Est Pt Level 3 (12243) Diagnoses Sacroiliitis M46.1 Chronic left SI joint pain M53.3; G89.29 Greater trochanteric bursitis of both hips M70.61; M70.62 Sacroiliac joint pain M53.3 Sacroiliac joint dysfunction of right side M53.3 Ischial bursitis of right side M70.71
[2024-05-08 09:48] VITALS: BP 128/60; PULSE 83; RESP 14; O2SAT 97; BMI 34.6
== END 2024-05-08 09:58 | disposition home or self-care (01) ==
PROVIDERS: PCP Internal Medicine; Visit Provider Anesthesiology
DX: M46.1 Sacroiliitis, not elsewhere classified (principal); M53.3 Sacrococcygeal disorders, not elsewhere classified; G89.29 Other chronic pain; M70.61 Trochanteric bursitis, right hip; M70.62 Trochanteric bursitis, left hip; M70.71 Other bursitis of hip, right hip
CPT/HCPCS: 99213

== ENCOUNTER → 2024-05-08 09:30 | Outpatient (BNVA) | payer MEDICARE, MEDICAID, SELFPAY | PROVIDERS: PCP Internal Medicine; Visit Provider Anesthesiology | DX: M46.1 Sacroiliitis, not elsewhere classified (principal); M53.3 Sacrococcygeal disorders, not elsewhere classified; M70.61 Trochanteric bursitis, right hip; M70.62 Trochanteric bursitis, left hip; M70.71 Other bursitis of hip, right hip; G89.29 Other chronic pain | CPT/HCPCS: 99212 ==

== ENCOUNTER 2024-05-10 12:04 | Day surgery (SDC) | payer MEDICARE, MEDICAID, SELFPAY ==
--- NOTE | 2024-05-08 13:10 | P.CONAN_ITS ---
Documented by User: Mary Hung NP 05/08/24 13:11 HPI - Anesthesia Eval Consult details Narrative: 64yo F for Sacroiliac Joint Injection s/p same 12/2023 with TIVA PMFSH Active Problems Active Problems: All Active Problems Chronic left SI joint pain (Acute) Sacroiliitis (Acute) B12 deficiency (Acute) Vitamin D deficiency (Acute) Osteoarthritis of glenohumeral joint (Acute) Atherosclerosis (Acute) Right upper quadrant abdominal pain (Acute) Spinal cord stimulator dysfunction (Acute) Sacroiliac joint dysfunction of right side (Acute) Asthma, mild persistent (Acute) Greater trochanteric bursitis of both hips (Acute) Sacroiliac joint pain (Acute) Frequent falls (Acute) Left hip pain (Acute) Encounter for general adult medical examination with abnormal findings (Acute) Osteoarthritis of right glenohumeral joint (Acute) Posterior left knee pain (Acute) Tendinopathy of right shoulder (Acute) Effusion, right knee (Acute) Restless leg syndrome (Acute) Effusion of left knee (Acute) Osteoarthritis of left knee (Acute) Right leg numbness (Acute) Arthritis of right hip (Acute) Anemia (Acute) Status post total knee replacement, right (Acute) Pre-op evaluation (Acute) Osteoarthritis of right knee (Acute) Pain management (Acute) Internal derangement of right knee (Acute) Psoriatic arthropathy (Acute) Acute pain of right knee (Acute) Medicare annual wellness visit, subsequent (Acute) S/P insertion of spinal cord stimulator (Acute) Anxiety, generalized (Acute) Leg pain, bilateral (Acute) Hand paresthesia (Acute) Obesity due to excess calories (Acute) Impingement syndrome of right shoulder (Acute) Grieving (Acute) Skin growth (Acute) Severe major depression (Acute) Flushing (Acute) Psoriatic arthritis (Acute) Chronic GERD (Acute) Difficulty sleeping (Acute) Abdominal pain (Acute) Psoriasis (Acute) Impingement syndrome, shoulder, left (Acute) Rotator cuff tendonitis (Acute) Right shoulder pain (Acute) Bursitis of right shoulder (Acute) Lipid disorder (Acute) DJD (degenerative joint disease) (Acute) Pre-diabetes (Acute) Constipation by delayed colonic transit (Acute) Asthma, moderate (Acute) Sciatica, right side (Acute) Sleeping difficulty (Acute) Periodic limb movement disorder (Acute) Chronic GERD (Acute) Postlaminectomy syndrome of cervical region (Acute) Postlaminectomy syndrome of lumbar region (Acute) Chronic pain syndrome (Acute) JOHN positive (Acute) Chest pain (Acute) Past Medical History Medical History History of COVID-19 Chest pain JOHN positive Chronic pain syndrome Postlaminectomy syndrome of lumbar region Postlaminectomy syndrome of cervical region Chronic GERD Periodic limb movement disorder Sleeping difficulty Sciatica, right side Asthma, moderate Constipation by delayed colonic transit Pre-diabetes DJD (degenerative joint disease) Lipid disorder Bursitis of right shoulder Right shoulder pain Spinal stenosis Back pain Fibromyalgia Degenerative disc disease Family History Family History Father No problems noted. Mother No problems noted. Other Mental health disorder Family history of problems with anesthesia: No Surgical History Surgical History History of total right knee replacement History of lumbar fusion S/P placement of nerve stimulator History of sleeve gastrectomy History of esophagogastroduodenoscopy (EGD) H/O colonoscopy History of gastric bypass Hx of cholecystectomy H/O: hysterectomy H/O spinal fusion H/O shoulder surgery History of Problems with Anesthesia: No Social History Social History Household Members: Other Household Members Other:: son Housing: House Are you a primary critical care physician to a significant other at home: No Do you presently have visiting nurse or other home services: No Alcohol intake: current Alcohol intake frequency: holidays/special occasions only Comment: pts baseline pain is 6/10 Patient Tobacco Use Status: Former Tobacco user Tobacco use type: Cigarette Years Smoked: 30 e-Cigarette/Vaping Use: Never Used Second Hand Smoke Exposure: No Substance Use Type: Marijuana service: No Current occupational status: disabled Current occupation: right handed Cognitive needs: No Hearing needs: No Vision needs: Yes Meds Allergies Allergy/AdvReac Type Severity Reaction Status Date / Time adhesive tape [ADHESIVE TAPE] Allergy Severe SKIN TEARS Verified 05/08/24 09:50 pramipexole Allergy Severe Diarrhea Verified 05/08/24 09:50 adalimumab [From Humira] Allergy Intermediate Itching Verified 05/08/24 09:50 carisoprodol [From SOMA] Allergy Intermediate SWELLING, Verified 05/08/24 09:50 RASH cephalexin Allergy Intermediate Itching Verified 05/08/24 09:50 gabapentin Allergy Intermediate leg Verified 05/08/24 09:50 swelling sulfamethoxazole Allergy Intermediate SWELLING,RA Verified 05/08/24 09:50 [From BACTRIM] SH trimethoprim [From BACTRIM] Allergy Intermediate SWELLING,RA Verified 05/08/24 09:50 SH Home Medications ?Medication ?Instructions ?Recorded ?Confirmed ?Last Taken ?Type albuterol sulfate 90 mcg/actuation 2 puff inhalation Q6H PRN 10/13/20 05/10/24 Unknown History aerosol inhaler Shortness Of Breath Exam Pertinent Lab Results Pertinent Lab Results: Laboratory Tests 04/18/24 10:55 WBC 9.8 Hgb 12.1 Hct 38.5 Plt Count 311 Sodium 142 Potassium 4.7 Chloride 107 Carbon Dioxide 29 BUN 14 Creatinine 0.79 Narrative Narrative: EKG 09/2023 NSR @ 70 Assessment and Plan Final Anesthetic Review Family History of Problems with Anesthesia: No History of Problems with Anesthesia: No Documented by User: Kaylah Salazar MD 05/10/24 12:53 PMFSH Active Problems Active Problems: gAll Active Problems Chronic left SI joint pain (Acute) Sacroiliitis (Acute) B12 deficiency (Acute) Vitamin D deficiency (Acute) Osteoarthritis of glenohumeral joint (Acute) Atherosclerosis (Acute) Right upper quadrant abdominal pain (Acute) Spinal cord stimulator dysfunction (Acute) Sacroiliac joint dysfunction of right side (Acute) Asthma, mild persistent (Acute) Greater trochanteric bursitis of both hips (Acute) Sacroiliac joint pain (Acute) Frequent falls (Acute) Left hip pain (Acute) Encounter for general adult medical examination with abnormal findings (Acute) Osteoarthritis of right glenohumeral joint (Acute) Posterior left knee pain (Acute) Tendinopathy of right shoulder (Acute) Effusion, right knee (Acute) Restless leg syndrome (Acute) Effusion of left knee (Acute) Osteoarthritis of left knee (Acute) Right leg numbness (Acute) Arthritis of right hip (Acute) Anemia (Acute) Status post total knee replacement, right (Acute) Pre-op evaluation (Acute) Osteoarthritis of right knee (Acute) Pain management (Acute) Internal derangement of right knee (Acute) Psoriatic arthropathy (Acute) Acute pain of right knee (Acute) Medicare annual wellness visit, subsequent (Acute) S/P insertion of spinal cord stimulator (Acute) Anxiety, generalized (Acute) Leg pain, bilateral (Acute) Hand paresthesia (Acute) Obesity due to excess calories (Acute) Impingement syndrome of right shoulder (Acute) Grieving (Acute) Skin growth (Acute) Severe major depression (Acute) Flushing (Acute) Psoriatic arthritis (Acute) Chronic GERD (Acute) Difficulty sleeping (Acute) Abdominal pain (Acute) Psoriasis (Acute) Impingement syndrome, shoulder, left (Acute) Rotator cuff tendonitis (Acute) Right shoulder pain (Acute) Bursitis of right shoulder (Acute) Lipid disorder (Acute) DJD (degenerative joint disease) (Acute) Pre-diabetes (Acute) Constipation by delayed colonic transit (Acute) Asthma, moderate (Acute) Sciatica, right side (Acute) Sleeping difficulty (Acute) Periodic limb movement disorder (Acute) Chronic GERD (Acute) Postlaminectomy syndrome of cervical region (Acute) Postlaminectomy syndrome of lumbar region (Acute) Chronic pain syndrome (Acute) JOHN positive (Acute) Chest pain (Acute) Past Medical History Medical History History of COVID-19 Chest pain JOHN positive Chronic pain syndrome Postlaminectomy syndrome of lumbar region Postlaminectomy syndrome of cervical region Chronic GERD Periodic limb movement disorder Sleeping difficulty Sciatica, right side Asthma, moderate Constipation by delayed colonic transit Pre-diabetes DJD (degenerative joint disease) Lipid disorder Bursitis of right shoulder Right shoulder pain Spinal stenosis Back pain Fibromyalgia Degenerative disc disease Family History Family History Father No problems noted. Mother No problems noted. Other Mental health disorder Surgical History Surgical History History of total right knee replacement History of lumbar fusion S/P placement of nerve stimulator History of sleeve gastrectomy History of esophagogastroduodenoscopy (EGD) H/O colonoscopy History of gastric bypass Hx of cholecystectomy H/O: hysterectomy H/O spinal fusion H/O shoulder surgery Social History Social History Household Members: Other Household Members Other:: son Housing: House Are you a primary critical care physician to a significant other at home: No Do you presently have visiting nurse or other home services: No Alcohol intake: current Alcohol intake frequency: holidays/special occasions only Comment: pts baseline pain is 6/10 Patient Tobacco Use Status: Former Tobacco user Tobacco use type: Cigarette Years Smoked: 30 e-Cigarette/Vaping Use: Never Used Second Hand Smoke Exposure: No Substance Use Type: Marijuana service: No Current occupational status: disabled Current occupation: right handed Cognitive needs: No Hearing needs: No Vision needs: Yes Meds Allergies Allergy/AdvReac Type Severity Reaction Status Date / Time adhesive tape [ADHESIVE TAPE] Allergy Severe SKIN TEARS Verified 05/08/24 09:50 pramipexole Allergy Severe Diarrhea Verified 05/08/24 09:50 adalimumab [From Humira] Allergy Intermediate Itching Verified 05/08/24 09:50 carisoprodol [From SOMA] Allergy Intermediate SWELLING, Verified 05/08/24 09:50 RASH cephalexin Allergy Intermediate Itching Verified 05/08/24 09:50 gabapentin Allergy Intermediate leg Verified 05/08/24 09:50 swelling sulfamethoxazole Allergy Intermediate SWELLING,RA Verified 05/08/24 09:50 [From BACTRIM] SH trimethoprim [From BACTRIM] Allergy Intermediate SWELLING,RA Verified 05/08/24 09:50 SH Home Medications ?Medication ?Instructions ?Recorded ?Confirmed ?Last Taken ?Type albuterol sulfate 90 mcg/actuation 2 puff inhalation Q6H PRN 10/13/20 05/10/24 Unknown History aerosol inhaler Shortness Of Breath Exam Airway Mallampati Class: II (globally poor dentition) TM Dist: >3cm Neck ROM: Full Loose/Missing/Broken Teeth: Yes, Upper and Lower Heart: RRR Lungs: CTA Assessment and Plan Assessment Anesthesia Assessment: Anesthesia Plan Discussed and Chart Reviewed Final Anesthetic Review NPO: Yes ASA Class: II Final Preanesthetic Review: Meds/Allgs Chart Reviewed, Consent Obtained/Reviewed and Anes Risks/Benef Reviewed Patient Risk: Low Procedure Risk: Low Anesthetic Plan Anesthetic Plan: MAC: Disposition: Standard PACU
--- NOTE | 2024-05-10 12:40 | MHC.SHP ---
Pre-Procedural Eval Section A - 24 Hr Update-Section A only Date of Service: 05/10/24 The patient is an INPATIENT: No Changes since office visit: Yes Patient answered all questions The patient has been examined within 24 hours of the surgical procedure. The History & Physical has been completed within 30 days and I have reviewed it.: No Section B - Complete if H&P > 30 days Chief Complaint: Sacrococcygeal disorders, not elsewhere classified Details of Present Illness: as above Relevant Family History (Specify if Yes): No Relevant Social History: None Present Medications: see Short Stay [facility] assessment Medical History: No relevant PMH History of Previous Operations: No relevant previous surgery Allergies: Allergies Allergy/AdvReac Type Severity Reaction Status Date / Time adhesive tape [ADHESIVE TAPE] Allergy Severe SKIN TEARS Verified 05/08/24 09:50 pramipexole Allergy Severe Diarrhea Verified 05/08/24 09:50 adalimumab [From Humira] Allergy Intermediate Itching Verified 05/08/24 09:50 carisoprodol [From SOMA] Allergy Intermediate SWELLING, Verified 05/08/24 09:50 RASH cephalexin Allergy Intermediate Itching Verified 05/08/24 09:50 gabapentin Allergy Intermediate leg Verified 05/08/24 09:50 swelling sulfamethoxazole Allergy Intermediate SWELLING,RA Verified 05/08/24 09:50 [From BACTRIM] SH trimethoprim [From BACTRIM] Allergy Intermediate SWELLING,RA Verified 05/08/24 09:50 SH Review of Systems Sugical H&P ROS: Negative: Cardiovascular, Respiratory, Neurological, Psychiatric, Hem-Onc, Allergic/Immunologic, Gastrointestinal, Genitourinary, Musculoskeletal, Integumentary, Endocrine and Eyes/Ears/Nose/Throat and Yes, Specify: Constitution (obesity) Exam Surgical H&P Exam: Normal: HEENT, Normal: Heart, Normal: Lungs, Normal: Abdomen, Normal: Skin and Normal: Neurological and Significant Findings: Extremities (OA left hip joint) Plan Diagnosis/Plan: Unchanged I have reviewed the history and physical and performed a pertinent physical examination on my patient. No changes have occurred unless specified. Time Spent With Patient Time: Total time managing care of this patient today ____ minutes.
--- NOTE | 2024-05-10 12:41 | MHC.SHP ---
Pre-Procedural Eval Section A - 24 Hr Update-Section A only Date of Service: 05/10/24 The patient is an INPATIENT: No Changes since office visit: Yes Patient answered all questions The patient has been examined within 24 hours of the surgical procedure. The History & Physical has been completed within 30 days and I have reviewed it.: No Section B - Complete if H&P > 30 days Chief Complaint: Sacrococcygeal disorders, not elsewhere classified Details of Present Illness: As above Relevant Family History (Specify if Yes): No Relevant Social History: None Present Medications: see Short Stay [facility] assessment Medical History: No relevant PMH History of Previous Operations: No relevant previous surgery Allergies: Allergies Allergy/AdvReac Type Severity Reaction Status Date / Time adhesive tape [ADHESIVE TAPE] Allergy Severe SKIN TEARS Verified 05/08/24 09:50 pramipexole Allergy Severe Diarrhea Verified 05/08/24 09:50 adalimumab [From Humira] Allergy Intermediate Itching Verified 05/08/24 09:50 carisoprodol [From SOMA] Allergy Intermediate SWELLING, Verified 05/08/24 09:50 RASH cephalexin Allergy Intermediate Itching Verified 05/08/24 09:50 gabapentin Allergy Intermediate leg Verified 05/08/24 09:50 swelling sulfamethoxazole Allergy Intermediate SWELLING,RA Verified 05/08/24 09:50 [From BACTRIM] SH trimethoprim [From BACTRIM] Allergy Intermediate SWELLING,RA Verified 05/08/24 09:50 SH Review of Systems Sugical H&P ROS: Negative: Cardiovascular, Respiratory, Neurological, Psychiatric, Hem-Onc, Allergic/Immunologic, Gastrointestinal, Genitourinary, Integumentary, Endocrine and Eyes/Ears/Nose/Throat and Yes, Specify: Constitution (Obesity) and Musculoskeletal (Osteoarthritis) Exam Surgical H&P Exam: Normal: HEENT, Normal: Heart, Normal: Lungs, Normal: Extremities, Normal: Abdomen, Normal: Skin and Normal: Neurological Plan Diagnosis/Plan: Unchanged I have reviewed the history and physical and performed a pertinent physical examination on my patient. No changes have occurred unless specified. Time Spent With Patient Time: Total time managing care of this patient today ____ minutes.
[2024-05-10 12:45] VITALS: BMI 36.0
[2024-05-10 12:55] VITALS: BP 114/47; PULSE 79; RESP 16; TEMP 36.8; O2SAT 97
[2024-05-10] MEDS: Lactated Ringers 1,000 ML 100 ML IVCONT (12:58)
[2024-05-10 13:25] VITALS: BP 102/48; PULSE 67; RESP 12; TEMP 36.4; O2SAT 97
--- NOTE | 2024-05-10 13:37 | PM.OP ---
Brief Operative Note Date of Service: 05/10/24 Pre-op diagnosis: Sacroiliitis left sacroiliac joint pain Post-op diagnosis: same Procedure: Therapeutic left sacroiliac joint injection. Surgeon: Junior Gloria MD Anesthesia: MAC Was an Patient Financial Services Specialist used for this Procedure?: No Estimated blood loss (mL): 0 Condition: stable Disposition: PACU
[2024-05-10 13:40] VITALS: BP 118/52; PULSE 63; RESP 17; O2SAT 96
--- NOTE | 2024-05-10 13:53 | P.OP_ITS ---
Operative Note Operative Note Date of Service: 05/10/24 Narrative: Left therapeutic sacroiliac joint injection Informed consent was explained thoroughly to the patient.? All questions about benefits and risks for the procedure were answered. Patient came to the operating room and was positioned prone on the operating table with the pillow under the abdomen. ASA monitors were applied and patient was deeply sedated. The lower back and buttocks of the patient were prepped with ChloraPrep prepped and draped with sterile utility towels.? Sterilely draped C-arm was brought over the operating field and sq picture of patient's pelvis was demonstrated on the screen.? For the left joint tilting C-arm contralateral to the site of the joint the most posterior portion of the joints was superimposed with anterior silhouette of the joint.? Skin was injected in the projection of the joint slightly medial to the location of the joint with 25 gauge 1/2 inch needle using local lidocaine 2% . After that 22 gauge 3 and 1/2 inch needle was driven to the left joint in tunnel vision fashion.? When needle entered the joint capsule injection of the contrast was performed demonstrating intra-articular spread of the contrast.? After that 4 cc. of ropivacaine 0.5% mixed with Kenalog 40 mg was injected in the joint. After that procedure was repeated on the left side in mirroring fashion. Same dose of ropivacaine was injected into the joint. Upon completion of the injections the needle was removed and Band-Aid was applied.? Upon completion of the injection patient was taken outside of the operating room to the recovery room where recovered uneventfully. Breast Theresa Node Biopsy Substrate(s) used for sentinel node biopsy in the non-neoadjuvant setting: Dye and Radiotracer General Surg. - Synoptic Notes Breast Theresa Node Biopsy Substrate(s) used for sentinel node biopsy in the non-neoadjuvant setting: Dye and Radiotracer
== END 2024-05-10 14:26 | disposition home or self-care (01) ==
PROVIDERS: PCP Internal Medicine; Visit Provider Anesthesiology
PROC: (CPT G0260; principal; 2024-05-10 13:40)
DX: M53.3 Sacrococcygeal disorders, not elsewhere classified (principal); G89.4 Chronic pain syndrome; M46.1 Sacroiliitis, not elsewhere classified; M96.1 Postlaminectomy syndrome, not elsewhere classified; M54.31 Sciatica, right side; M79.7 Fibromyalgia; G47.61 Periodic limb movement disorder; M70.61 Trochanteric bursitis, right hip; M70.62 Trochanteric bursitis, left hip; M70.71 Other bursitis of hip, right hip; J45.909 Unspecified asthma, uncomplicated; R73.03 Prediabetes; K21.9 Gastro-esophageal reflux disease without esophagitis; L23.1 Allergic contact dermatitis due to adhesives; Z96.651 Presence of right artificial knee joint; Z88.2 Allergy status to sulfonamides; Z88.8 Allergy status to other drugs, medicaments and biological substances; Z98.84 Bariatric surgery status; Z98.1 Arthrodesis status; Z90.49 Acquired absence of other specified parts of digestive tract; Z98.890 Other specified postprocedural states; Z87.891 Personal history of nicotine dependence
CPT/HCPCS: G0260; J2003; J2250; J2704; J2795; J3010; J3301; Q9967

== ENCOUNTER → 2024-05-10 12:04 | Outpatient (BNV) | payer MEDICARE, MEDICAID, SELFPAY | PROVIDERS: PCP Internal Medicine; Visit Provider Anesthesiology | DX: M53.3 Sacrococcygeal disorders, not elsewhere classified (principal) | CPT/HCPCS: 27096 ==

== ENCOUNTER 2024-05-14 07:48 | Outpatient (AMB) | payer MEDICARE, MEDICAID, SELFPAY ==
--- NOTE | 2024-05-14 08:10 | MHC.OFFVIS ---
Vital Signs 05/14/24 08:11 Height 5 ft 3 in Weight 199 lb 11.821 oz BMI 35.4 BP 110/56 L Blood Pressure Location Rt brachial Position Sitting Pulse 70 Pulse Source Pulse Oximeter Pulse Oximetry (%) 96 Oxygen Delivery Method Room Air Intake Visit Reasons: 4 mos FUV. Intake Note: Relevant Flags or Indicators ? 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 Shalonda Kaylah presents in office today for a scheduled 4 mos FUV. CC; Since last visit; labs ordered ? yes via multiple providers. Rx ordered ? yes; dulcolax. Diagnostics/images ordered ? done; Nuclear Medicine Relevant GI Sx as reported per pt? Nausea ? Reflux ? Dysphagia ? Fecal abnormalities o?? Discolored - small amounts of hematochezia. o?? Constipation o?? Diarrhea ? Abdominal Pain o?? Upper B/L ? Early satiety ? Bloating ? Abdominal distention ? Hx of any recent surgeries? Yes; Sacroiliac Joint Fusion Senior Embedded Software Engineer Required: No Allergies adhesive tape [ADHESIVE TAPE] Allergy (Severe, Verified 05/14/24 08:11) SKIN TEARS pramipexole Allergy (Severe, Verified 05/14/24 08:11) Diarrhea adalimumab [From Humira] Allergy (Intermediate, Verified 05/14/24 08:11) Itching carisoprodol [From SOMA] Allergy (Intermediate, Verified 05/14/24 08:11) SWELLING, RASH cephalexin Allergy (Intermediate, Verified 05/14/24 08:11) Itching gabapentin Allergy (Intermediate, Verified 05/14/24 08:11) leg swelling sulfamethoxazole [From BACTRIM] Allergy (Intermediate, Verified 05/14/24 08:11) SWELLING,RASH trimethoprim [From BACTRIM] Allergy (Intermediate, Verified 05/14/24 08:11) SWELLING,RASH HPI HPI 4 mos FUV.: Details: LAST VISIT: Right upper quadrant abdominal pain Chronic GERD Postprandial abdominal pain in right upper quadrant Postprandial abdominal bloating Nausea & vomiting Abdominal pain Constipation by delayed colonic transit Plan No rebound tenderness in right upper quadrant. Dilated biliary duct will send patient for HIDA scan to rule out stone. Pain not always related to food could be a biliary colic. Patient describes the pain in the right upper quadrant and refers to inflamed area, possible gas trapping pain due to food that she eats and inability to empty her bowels completely. Patient will be started on Dulcolax. However we will rule out pancreatitis, thyroid study, vitamin-D, B12 and folate. Patient does admit occasional postprandial loose stools and nausea. Avoid food high in fat. Avoid food that is spicy. Avoid dietary triggers and late night snacking. Staying upright for minimum 3 hours after meals discussed with patient. Omeprazole on as needed basis. Low FODMAP diet discussed with patient. List of food recommended as well as list of food to avoid given to patient. Patient will return in 6 weeks, sooner on as needed basis. She is agreeable to this plan and verbalizes understanding of instructions. She was given the opportunity to ask questions and all questions answered. ? Thank you for allowing me to participate in her care Orders Orders TSH reflex Free T4 Today K59.00 Lipase Today R10.9 Vitamin B12 and Folate Today R19.7 Vitamin D 25-OH (D2 and D3) Today E55.9 NM hepatobiliary wo pharm Today R10.811 Medications New bisacodyl (Dulcolax (bisacodyl)) 10 mg (2 x 5 mg) PO BEDTIME 180 tabs 4RF TODAY'S VISIT: Patient is here today for follow-up and to discuss lab results and HIDA scan results. Patient had normal labs except for low vitamin-D which she has been taking replacement and has finished. Vitamin-D levels repeated and normal in March. HIDA scan results were normal. Patient continues to have postprandial loose stools. Patient does admit to feel constipated and stating that Dulcolax is not working. Patient is taking omeprazole at night time and states that she continues to have epigastric pain and acid reflux throughout the day. Patient denies any nausea or vomiting. Denies any melena, hematochezia, unintentional weight loss or ribbon like stools. Patient had colonoscopy year ago at [facility] and was told to return in 10 years. Patient reports that when she was in [place] she was feeling fine. Patient ate same things as she usually eats here and she did not have the symptoms. Patient does admit to be stress here at home. [facility] Medical History History of COVID-19 Chest pain JOHN positive Chronic pain syndrome Postlaminectomy syndrome of lumbar region Postlaminectomy syndrome of cervical region Chronic GERD Periodic limb movement disorder Sleeping difficulty Sciatica, right side Asthma, moderate Constipation by delayed colonic transit Pre-diabetes DJD (degenerative joint disease) Lipid disorder Bursitis of right shoulder Right shoulder pain Spinal stenosis Back pain Fibromyalgia Degenerative disc disease Surgical History (Updated 05/14/24 @ 09:20 by Melva Mayes [facility]-) History of total right knee replacement History of lumbar fusion S/P placement of nerve stimulator History of sleeve gastrectomy History of esophagogastroduodenoscopy (EGD) H/O colonoscopy History of gastric bypass Hx of cholecystectomy H/O: hysterectomy H/O spinal fusion H/O shoulder surgery Family History Father No problems noted. Mother No problems noted. Other Mental health disorder Social History Household Members: Other Household Members Other:: son Housing: House Are you a primary healthcare economics consultant to a significant other at home: No Do you presently have visiting nurse or other home services: No Alcohol intake: current Alcohol intake frequency: holidays/special occasions only Comment: pts baseline pain is 6/10 Patient Tobacco Use Status: Former Tobacco user Tobacco use type: Cigarette Years Smoked: 30 e-Cigarette/Vaping Use: Never Used Second Hand Smoke Exposure: No Substance Use Type: Marijuana service: No Current occupational status: disabled Current occupation: right handed Cognitive needs: No Hearing needs: No Vision needs: Yes Review of Systems Const Denies weight gain and Denies weight loss ENT Reports no additional complaints, Denies dysphagia and Denies odynophagia Card Reports no additional complaints Resp Reports no additional complaints GI Reports abdominal pain, Denies belching, Denies melena, Reports bloating, Denies change in bowel habits, Denies dysphagia, Denies excessive flatus, Denies dyspepsia, Reports heartburn, Denies diarrhea, Reports loose stools, Denies nausea, Denies odynophagia and Denies vomiting Reports no additional complaints Musc Reports no additional complaints Neuro Reports no additional complaints Psych Reports no additional complaints Endo Reports no additional complaints Physical Exam Const General: healthy appearing and no acute distress Nutritional Appearance: obese Orientation/consciousness: patient oriented x3 Resp Effort & Inspection: normal respiratory effort, able to speak in complete sentences, no tracheal deviation and symmetric chest movement Auscultation: clear to auscultation bilaterally Cardio Rate: regular rate GI Inspection: Yes normal to inspection, No distended and Yes obesity Palpation (GI): Soft to palpation, not firm, nontender and No hepatosplenomegaly present Auscultation: normal bowel sounds General: Yes no CVA tenderness Back/Spine/Pelvis Back: no CVA tenderness Skin General skin exam: elasticity normal, turgor normal and dry skin Neuro General: patient oriented x3 Psych Appearance: grossly normal Mental Status: mental status grossly normal Results Reviewed Results Reviewed: HIDA SCAN FINDINGS: There is good concentration of activity in the liver by 5 minutes post injection. Biliary activity is visualized by 15 minutes. Small bowel is well visualized by 25 minutes. The gallbladder has been resected and is not visualized. NM/NM hepatobiliary wo pharm IMPRESSION: Normal biliary scan status post cholecystectomy. Liver function appears normal. The common bile duct is patent. Laboratory Tests 01/04/24 04/18/24 10:58 10:55 Lipase 11 Vitamin B12 271 25-OH Vitamin D Total 7 L 49 Folate 6.1 TSH 0.52 Assessment & Plan Assessment & Plan (1) Right upper quadrant abdominal pain: Code(s): R10.11 - Right upper quadrant pain Category: Medical (2) Chronic GERD: Code(s): K21.9 - Gastro-esophageal reflux disease without esophagitis Category: Medical (3) Abdominal pain: Code(s): R10.9 - Unspecified abdominal pain Category: Medical Qualifiers: Abdominal location: right lower quadrant Qualified Code(s): R10.31 - Right lower quadrant pain (4) Constipation by delayed colonic transit: Code(s): K59.01 - Slow transit constipation Category: Medical (5) Postprandial abdominal pain in right upper quadrant: Code(s): R10.11 - Right upper quadrant pain (6) Postprandial abdominal bloating: Code(s): R14.0 - Abdominal distension (gaseous) (7) Hx of cholecystectomy: Code(s): Z90.49 - Acquired absence of other specified parts of digestive tract Category: Surgical Plan Continue avoiding dietary triggers. Avoid late night snacking. Patient will stop omeprazole and will start Nexium in the morning. Patient reports that she is constipated and does not move her bowels when taking Dulcolax. Will start her on Linzess. Postprandial loose stools will start patient on cholestyramine. Patient will return in 3 months, sooner on as needed basis. She is agreeable to this plan and verbalizes understanding of instructions. She was given the opportunity to ask questions and all questions answered. Thank you for allowing me to participate in her care Medications: New esomeprazole magnesium (Nexium) 40 mg PO DAILY 30 caps 5RF K21.9 - Gastro-esophageal reflux disease without esophagitis cholestyramine-aspartame 4 gram (Cholestyramine Light) no meds 1 hr before/4-6 hr after dose 4 grams PO QIDACHS 201.6 grams 1RF linaclotide (Linzess) 145 mcg PO DAILY 30 caps 2RF Discontinued omeprazole Discontinued Reason: Doctor's Order 20 mg PO BID PRN 90 caps 1RF acid reflux Coding Level of Care Code Est Pt Level 3 (20600) Diagnoses Right upper quadrant abdominal pain R10.11 Chronic GERD K21.9 Right lower quadrant abdominal pain R10.31 Abdominal location: right lower quadrant Constipation by delayed colonic transit K59.01 Postprandial abdominal pain in right upper quadrant R10.11 Postprandial abdominal bloating R14.0 Hx of cholecystectomy Z90.49 Time Spent (min) 30 Comment 20 minutes spent with patient and additional 10 minutes spent reviewing her records
[2024-05-14 08:11] VITALS: BP 110/56; PULSE 70; O2SAT 96; BMI 35.4
== END 2024-05-14 08:36 | disposition home or self-care (01) ==
PROVIDERS: PCP Internal Medicine; Visit Provider Nurse Practitioner Family
DX: R10.11 Right upper quadrant pain (principal); K21.9 Gastro-esophageal reflux disease without esophagitis; R10.31 Right lower quadrant pain; K59.01 Slow transit constipation; R14.0 Abdominal distension (gaseous); Z90.49 Acquired absence of other specified parts of digestive tract
CPT/HCPCS: 99213

== ENCOUNTER → 2024-05-14 07:48 | Outpatient (BNVA) | payer MEDICARE, MEDICAID, SELFPAY | PROVIDERS: PCP Internal Medicine; Visit Provider Nurse Practitioner Family | DX: K21.9 Gastro-esophageal reflux disease without esophagitis (principal); K59.01 Slow transit constipation; R10.11 Right upper quadrant pain; R10.31 Right lower quadrant pain; R14.0 Abdominal distension (gaseous); Z90.49 Acquired absence of other specified parts of digestive tract | CPT/HCPCS: 99212 ==

== ENCOUNTER 2024-06-10 11:25 | Outpatient (AMB) | payer MEDICARE, MEDICAID, SELFPAY ==
--- NOTE | 2024-06-10 11:25 | A.OFFVIS_ITS ---
Vital Signs 06/10/24 11:30 Height 5 ft 3 in Weight 198 lb 4 oz BMI 35.1 BP 124/64 Blood Pressure Location Lt brachial Position Sitting Respiration 14 Pulse 83 Pulse Source Pulse Oximeter Pulse Oximetry (%) 95 Oxygen Delivery Method Room Air Intake Visit Reasons: 1 month F/U / discuss CT Intake Note: Patient comes in to discuss CT scan results. Reports pain 5/10. Allergies adhesive tape [ADHESIVE TAPE] Allergy (Severe, Verified 06/10/24 11:31) SKIN TEARS pramipexole Allergy (Severe, Verified 06/10/24 11:31) Diarrhea adalimumab [From Humira] Allergy (Intermediate, Verified 06/10/24 11:31) Itching carisoprodol [From SOMA] Allergy (Intermediate, Verified 06/10/24 11:31) SWELLING, RASH cephalexin Allergy (Intermediate, Verified 06/10/24 11:31) Itching gabapentin Allergy (Intermediate, Verified 06/10/24 11:31) leg swelling sulfamethoxazole [From BACTRIM] Allergy (Intermediate, Verified 06/10/24 11:31) SWELLING,RASH trimethoprim [From BACTRIM] Allergy (Intermediate, Verified 06/10/24 11:31) SWELLING,RASH HPI Comments Details: Kaylah is back in my office after the therapeutic sacroiliac joint injection steroids, she also went for CT scan of the pelvis to rule out ischial tuberosity and ischial bursa problems. She reports the sacroiliac joint injection helped her in significant extent. Today 1 month after the procedure she just starting to feel her pain getting back. I explained to her the results of the CT scan. On the CT scan there were no problems with ischial tuberosity, they were bilateral greater trochanter inflammatory changes, there are changes on the postlaminectomy syndrome L5-S1. The full reports see in the activities section scanned as a copy of ray us report. About the sacroiliac joint injection I told the patient that we can perform this injection once in 3 months. She will be given us a call when her pain from sacroiliac joint will return. Past Procedures: 07/04/23: Left Diagnostic Sacroiliac Joint Injection-30% pain relief for 2 hours 05/09/23: Bilateral Therapeutic Greater Trochanteric Bursa injections-70% ongoing pain relief PRIOR: Patient presents today for follow up for left sided sciatica pain. Patient reports frequent falls for the past year. She had right TKA in June 2022 and injured her left knee, shoulders and back in January 2023 when she fell from [facility] per EMR review. Patient recently seen her PCP for back pain and was prescibed Percocet with minimal to moderate pain relief. She also takes NSAIDs, Asper cream roll-on, ice and heat therapy with partial results. Walking, weight bearing, bending, climbing stairs, cold weather, getting out of car or shower increases her pain. Patient reports NEVRO SCS device has been working well for her post laminectomy syndrome but not covering left leg pain. She reports back pain radiating into her left buttock, left lateral hip and left groin. I could not reproduce pain with SLR testing today. However, she has pain with provocative testing for sacroiliac joint and left hip with groin pain. There is no tenderness along her battery pocket or incisional lines in her back. She also reports mid back pain. We will proceed with updating her back imaging, evaluate SCS status and assess degree of arthritis for left hip. She is interested to receive therapeutic injection to alleviate her pain. Denies any fever, weight changes, bladder or bowel dysfunction, or saddle anesthesia. PRIOR 08/25/22 Kaylah is very pleasant 62 years old female who is my office complaining on pain in the posterior right buttock as well as anterior thigh on the right. She is well-known in this clinic she was treated for low back pain in the past with Nevro spinal cord stimulator. According to the patient she had a fall 3 weeks ago after which the symptoms appeared. She was not sent to any x-rays. Today on physical exam attention was attracted to the fact that patient has discomfort in the projection of the ischial tuberosity as well as pain aggravation in the groin with rotation of the right hip. I will send this patient for right hip x- ray. If there are any arthritic changes I will schedule her for intra-articular right hip steroid injection. PRIOR 02/07/22 Dr. Gloria: Kaylah is 61 years old female who presents in my office today status post of the implantation of spinal cord stimulator Nevro. She received the device to be treated for symptoms of postlaminectomy syndrome. She reports excellent pain relief better mobility better activities of daily living better social interactions. She is very happy with her machine. However she reports that at the side of the battery she feels some discomfort, she reports that battery became loose. She became more active and she lost some weight. She also reports that when she is walking through the narrow drawers she sometimes he the battery on the doors and it aunts to her discomfort. She does not report difficulty charging the device. Unlikely therefore the device is flipped. I discussed the situation with her today. We can potentially relocated the battery into the loin of her liking from the buttock. But that would require 3 incisions to complete for me. Alternatively she can try some topicals Aspercreme with lidocaine and salicylate. I also recommend her to purchase some bedsore protection pads in the pharmacy [id number] and use it for protection of the device from external trauma. We decided that she will see me in 1 month. [facility] Medical History History of COVID-19 Chest pain JOHN positive Chronic pain syndrome Postlaminectomy syndrome of lumbar region Postlaminectomy syndrome of cervical region Chronic GERD Periodic limb movement disorder Sleeping difficulty Sciatica, right side Asthma, moderate Constipation by delayed colonic transit Pre-diabetes DJD (degenerative joint disease) Lipid disorder Bursitis of right shoulder Right shoulder pain Spinal stenosis Back pain Fibromyalgia Degenerative disc disease Surgical History (Updated 05/14/24 @ 09:20 by Melva Mayes, [facility]) History of total right knee replacement History of lumbar fusion S/P placement of nerve stimulator History of sleeve gastrectomy History of esophagogastroduodenoscopy (EGD) H/O colonoscopy History of gastric bypass Hx of cholecystectomy H/O: hysterectomy H/O spinal fusion H/O shoulder surgery Family History Father No problems noted. Mother No problems noted. Other Mental health disorder Social History Household Members: Other Household Members Other:: son Housing: House Are you a primary child care worker to a significant other at home: No Do you presently have visiting nurse or other home services: No Alcohol intake: current Alcohol intake frequency: holidays/special occasions only Comment: pts baseline pain is 6/10 Patient Tobacco Use Status: Former Tobacco user Tobacco use type: Cigarette Years Smoked: 30 e-Cigarette/Vaping Use: Never Used Second Hand Smoke Exposure: No Substance Use Type: Marijuana service: No Current occupational status: disabled Current occupation: right handed Cognitive needs: No Hearing needs: No Vision needs: Yes Review of Systems Const All systems reviewed & are unremarkable except as noted in HPI and below Physical Exam Vital Signs: Last Vital Signs Pulse 83 06/10/24 11:30 Resp 14 06/10/24 11:30 BP 124/64 06/10/24 11:30 Pulse Ox 95 06/10/24 11:30 Oxygen Delivery Method Room Air 06/10/24 11:30 BMI result Body Mass Index 35.1 General: Appears afebrile. Alert and oriented. Mood and affect appropriate. Follows and participates in conversation appropriately. Respiratory effort is unlabored. No cough. Able to transition from sit to stand unassisted. Ambulates with bilaterally normal heel strike and toe off. Back/Spine/Pelvis Other: Limited lumbar ROM with flexion and extension. Facet loading test positive bilaterally. Oc?s, Pelvic compression and Stinchfield tests are positive on the right, pelvic distraction test is positive on the right, reproduce left groin and left buttock pain. Moderate left groin pain with I/E hip rotations on the left. Mild TTP at GTB bilaterally. Tenderness on palpation in projection of the right ischial bursa. Cervical Spine: cervical ROM normal, Cervical spine scars present and No Cervical spine tenderness Thoracic/Lumbar Spine: thoracic and lumbar spine normal to inspection, Thoracic/lumbar spine scar(s), Lasegue's sign negative, straight leg raise negative bilaterally, pain with thoraco-lumbar ROM, paraspinal muscle tenderness, No thoracic spinal tenderness and lumbar spinal tenderness at L5 Pelvis: buttock tenderness on the left Sacroiliac joints: on the right tender, on the left tender to palpation and bilaterally tender to palpation, by compression of iliac crest, by passive hyperextension of lower ext and other (As above) Assessment & Plan Assessment & Plan (1) Sacroiliitis: Code(s): M46.1 - Sacroiliitis, not elsewhere classified Category: Medical (2) Chronic left SI joint pain: Code(s): M53.3 - Sacrococcygeal disorders, not elsewhere classified; G89.29 - Other chronic pain Category: Medical (3) Greater trochanteric bursitis of both hips: Code(s): M70.61 - Trochanteric bursitis, right hip; M70.62 - Trochanteric bursitis, left hip Category: Medical (4) Sacroiliac joint pain: Code(s): M53.3 - Sacrococcygeal disorders, not elsewhere classified Category: Medical (5) Sacroiliac joint dysfunction of right side: Code(s): M53.3 - Sacrococcygeal disorders, not elsewhere classified Category: Medical (6) Ischial bursitis of right side: Code(s): M70.71 - Other bursitis of hip, right hip Category: Medical Plan Good results of the left therapeutic sacroiliac joint injection she reports very good pain relief for 1 month after the procedure. CT scan at rest did not demonstrate any problems with ischial tuberosity or ischial bursa. Patient will be calling to schedule therapeutic sacroiliac joint injection in the future. We can not do it once in 3 months. Coding Level of Care Code Est Pt Level 3 (79782) Diagnoses Sacroiliitis M46.1 Chronic left SI joint pain M53.3; G89.29 Greater trochanteric bursitis of both hips M70.61; M70.62 Sacroiliac joint pain M53.3 Sacroiliac joint dysfunction of right side M53.3 Ischial bursitis of right side M70.71
[2024-06-10 11:30] VITALS: BP 124/64; PULSE 83; RESP 14; O2SAT 95; BMI 35.1
== END 2024-06-10 11:36 | disposition home or self-care (01) ==
PROVIDERS: PCP Internal Medicine; Visit Provider Anesthesiology
DX: M46.1 Sacroiliitis, not elsewhere classified (principal); M53.3 Sacrococcygeal disorders, not elsewhere classified; G89.29 Other chronic pain; M70.61 Trochanteric bursitis, right hip; M70.62 Trochanteric bursitis, left hip; M70.71 Other bursitis of hip, right hip
CPT/HCPCS: 99213

== ENCOUNTER → 2024-06-10 11:25 | Outpatient (BNVA) | payer MEDICARE, MEDICAID, SELFPAY | PROVIDERS: PCP Internal Medicine; Visit Provider Anesthesiology | DX: M46.1 Sacroiliitis, not elsewhere classified (principal); M53.3 Sacrococcygeal disorders, not elsewhere classified; M70.61 Trochanteric bursitis, right hip; M70.62 Trochanteric bursitis, left hip; M70.71 Other bursitis of hip, right hip; G89.29 Other chronic pain | CPT/HCPCS: 99212 ==

== ENCOUNTER 2024-07-23 08:36 | Outpatient (AMB) | payer MEDICARE, MEDICAID, SELFPAY ==
[2024-07-23 08:49] VITALS: BP 132/64; PULSE 92; O2SAT 96; BMI 35.6
--- NOTE | 2024-07-23 08:49 | A.OFFPC_ITS ---
Vital Signs 07/23/24 08:49 Height 5 ft 3 in Weight 201 lb 2 oz BMI 35.6 BP 132/64 Blood Pressure Location Rt brachial Position Sitting Pulse 92 Pulse Source Pulse Oximeter Pulse Oximetry (%) 96 Oxygen Delivery Method Room Air Intake Visit Reasons: 3 months f/up Allergies adhesive tape [ADHESIVE TAPE] Allergy (Severe, Verified 07/23/24 08:50) SKIN TEARS pramipexole Allergy (Severe, Verified 07/23/24 08:50) Diarrhea adalimumab [From Humira] Allergy (Intermediate, Verified 07/23/24 08:50) Itching carisoprodol [From SOMA] Allergy (Intermediate, Verified 07/23/24 08:50) SWELLING, RASH cephalexin Allergy (Intermediate, Verified 07/23/24 08:50) Itching gabapentin Allergy (Intermediate, Verified 07/23/24 08:50) leg swelling sulfamethoxazole [From BACTRIM] Allergy (Intermediate, Verified 07/23/24 08:50) SWELLING,RASH trimethoprim [From BACTRIM] Allergy (Intermediate, Verified 07/23/24 08:50) SWELLING,RASH Medication List - Last Reconciled 07/23/24 by Amaya Harris MD acetaminophen 650 mg (2 x 325 mg) PO Q6H PRN 30 days albuterol sulfate 90 mcg/actuation 2 puffs inhalation Q6H PRN bisacodyl (Dulcolax (bisacodyl)) 10 mg (2 x 5 mg) PO BEDTIME cholecalciferol (vitamin D3) 1,250 mcg PO QWEEK cholestyramine-aspartame 4 gram (Cholestyramine Light) 4 grams PO QIDACHS 90 days diclofenac sodium 25 mg PO BID PRN 15 days duloxetine 40 mg PO DAILY 90 days esomeprazole magnesium (Nexium) 40 mg PO DAILY linaclotide (Linzess) 145 mcg PO DAILY quetiapine (Seroquel) 50 mg (2 x 25 mg) PO BEDTIME 90 days simvastatin 40 mg PO BEDTIME 90 days tramadol 50 mg PO BID PRN 15 days walker Folding Front wheeled walker Tobacco use date assessed: 07/23/24 Fall risk assessment: No Falls in past year Last assessed Fall Risk: 07/23/24 Dental Screening Dental Screen Date: 07/23/24 Did you have a dental visit in the last 12 months?: No Did you have a dental problem in the last 6 months where you did not have access to dental care?: No Was dental information given to patient?: Patient has dentist HPI 3 months f/up HPI Details History - bulleted - The patient is a 64-year-old female pr esenting with persistent cough - Cough began approximately one month ag o following a stomach bug. - Associated symptoms: congested head, d ifficulty breathing during coughing fits, occasional expectoration described as chunks. - Home testing for COVID-19 and RSV was negative. - Prior intervention has included over-t he-counter medications; however, symptoms persist. - Thoracic muscle spasms first occurred over a year ago, initially evaluated in the emergency room. Cooly Dickonson when it started months ago - Symptoms include back tightening, radi ating to the front, with breathing difficulty noted. - Recent recurrence noted when traveling from [place] to home; stress and anxiety noted as potential exacerbating factors. - Current muscle and lower back discomfo rt described as severely limiting; requires as-needed use of Tramadol. Continued to have urine incontinence, referral to Urology placed for evaluation Problem List - Persistent Cough - Thoracic Muscle Spasm - Lower Back Pain Chronic GERD Depression Difficulty sleeping Pain management Multiple joint osteoarthritis Lipid disorder Obesity Vitamin-D deficiency Chronic constipation Medication list reviewed Review of Systems - Respiratory: Reports persistent cough, head congestion, and breathing difficulties - Neuromuscular: Reports thoracic muscle spasms and lower back pain General: No fever no chills neurological: No headaches no dizziness ear nose throat: No sore throat no hearing difficulty no ear pain cardiovascular: No syncope, no chest pain, no palpitations gastrointestinal: No nausea vomiting or diarrhea endocrine: No polyuria polydipsia no heat intolerance genitourinary: No dysuria skin: No new complaints Physical Exam general: No acute distress HEENT: Congested in the head neck: Supple respiratory system: Lungs are clear, no difficulty breathing noted cardiovascular: S1-S2 gastrointestinal: No pain extremities: No new findings INSTITUTIONAL ASSET MANAGER: Alert awake oriented x3 motor sensory intact skin: Normal turgor Patient Instructions - Continue current medications as prescr ibed - Take prescribed prednisone and amoxici llin as directed - Use muscle relaxants as needed for rel ief from muscle spasms, cautioning about possible drowsiness - Schedule routine labs and follow up in three months - Seek medical attention if breathing di fficulties or symptoms worsen Follow-up 3 months PFSH Medical History (Updated 07/23/24 @ 13:27 by Amaya Harris MD) History of COVID-19 Chest pain JOHN positive Chronic pain syndrome Postlaminectomy syndrome of lumbar region Postlaminectomy syndrome of cervical region Chronic GERD Periodic limb movement disorder Sleeping difficulty Sciatica, right side Asthma, moderate Constipation by delayed colonic transit Pre-diabetes DJD (degenerative joint disease) Lipid disorder Bursitis of right shoulder Right shoulder pain Spinal stenosis Back pain Fibromyalgia Degenerative disc disease Surgical History (Updated 05/14/24 @ 09:20 by Melva Mayes [facility]) History of total right knee replacement History of lumbar fusion S/P placement of nerve stimulator History of sleeve gastrectomy History of esophagogastroduodenoscopy (EGD) H/O colonoscopy History of gastric bypass Hx of cholecystectomy H/O: hysterectomy H/O spinal fusion H/O shoulder surgery Family History Father No problems noted. Mother No problems noted. Other Mental health disorder Social History Household Members: Other Household Members Other:: son Housing: House Are you a primary health care marketing specialist to a significant other at home: No Do you presently have visiting nurse or other home services: No Alcohol intake: current Alcohol intake frequency: holidays/special occasions only Comment: pts baseline pain is 6/10 Patient Tobacco Use Status: Former Tobacco user Tobacco use type: Cigarette Years Smoked: 30 e-Cigarette/Vaping Use: Never Used Second Hand Smoke Exposure: No Substance Use Type: Marijuana service: No Current occupational status: disabled Current occupation: right handed Cognitive needs: No Hearing needs: No Vision needs: Yes Questionnaire Thrive Questionnaire Date Thrive assessed: 07/23/24 I am a: Patient What is your living situation today?: I have a place to live, but I am worried about losing it in the future Within the past 12 months, did the food you bought not last and you didn't have the money to get more?: Often true Within the past 12 months, did you worry whether your food would run out before you got money to buy more?: Sometimes True Do you have trouble paying for medicines?: No Do you have trouble getting transportation to medical appointments?: No Do you have trouble paying your heating and electricity bill?: Yes Do you have trouble taking care of your child, family member or friend?: No Do you have trouble with day-to-day activities such as bathing, preparing meals, shopping, managing finances, etc.?: Yes Are you currently unemployed and looking for a job?: No Are you interested in more education?: No Currently or been in a relationship where the following occur: No concerns reported THRIVE Score: 4 AUDIT C Alcohol Use Questionnaire (AUDIT-C) 1. How often do you have a drink containing alcohol?: Never 3. How often do you have six or more drinks on one occasion?: Never Total Score: 0 Score Reviewed/Action Taken: Yes CATARINA-7 AMB Questionnaire CATARINA-7 Date CATARINA - 7 assessed: 02/21/24 Source: Developed by Drs. Andrew Lamb, Julia Olivas, Alfonso Silva and colleagues, with an educational elvia from [employer]. Physical exam (Primary Care) Vital Signs: Last Vital Signs Pulse 92 07/23/24 08:49 BP 132/64 07/23/24 08:49 Pulse Ox 96 07/23/24 08:49 Oxygen Delivery Method Room Air 07/23/24 08:49 BMI result Body Mass Index 35.6 Tobacco/Smoking Status: Tobacco use Status Tobacco use date assessed 07/23/24 07/23/24 08:55 Patient Tobacco Use Status Former Tobacco user 07/23/24 08:51 Tobacco use type Cigarette 07/23/24 08:51 e-Cigarette/Vaping Use Never Used 07/23/24 08:51 Thrive Assessment: Date of Thrive Assessment Date Thrive assessed 07/23/24 07/23/24 08:55 Currently or been in a relationship where the following occur: No concerns reported Coding Level of Care Code Est Pt Level 5 (60513) Complex EM visit Add On G2211 Diagnoses Urinary incontinence, unspecified type R32 Urinary Incontinence type: unspecified incontinence Lipid disorder E78.9 Moderate persistent asthma without complication J45.40 Asthma persistence: persistent Asthma complication type: uncomplicated Sleeping difficulty G47.9 Periodic limb movement disorder G47.61 Chronic GERD K21.9 Chronic pain syndrome G89.4 Psoriatic arthritis L40.50 Severe major depression F32.2 Class 2 severe obesity due to excess calories with serious comorbidity and body mass index (BMI) of 38.0 to 38.9 in adult E66.01; Z68.38 Obesity classification: adult class 2 (BMI 35 - 39.9) Serious obesity comorbidity presence: with serious comorbidity Body mass index: BMI 38.0-38.9 Anxiety, generalized F41.1 Sacroiliitis M46.1 Osteoarthritis involving multiple joints on both sides of body M15.9 Assessment & Plan Assessment & Plan (1) Urine incontinence: Code(s): R32 - Unspecified urinary incontinence Category: Medical Qualifiers: Urinary Incontinence type: unspecified incontinence Qualified Code(s): R32 - Unspecified urinary incontinence (2) Lipid disorder: Code(s): E78.9 - Disorder of lipoprotein metabolism, unspecified Category: Medical (3) Asthma, moderate: Code(s): J45.909 - Unspecified asthma, uncomplicated Category: Medical Qualifiers: Asthma persistence: persistent Asthma complication type: uncomplicated Qualified Code(s): J45.40 - Moderate persistent asthma, uncomplicated (4) Sleeping difficulty: Code(s): G47.9 - Sleep disorder, unspecified Category: Medical (5) Periodic limb movement disorder: Comment: Stable Code(s): G47.61 - Periodic limb movement disorder Category: Medical (6) Chronic GERD: Code(s): K21.9 - Gastro-esophageal reflux disease without esophagitis Category: Medical (7) Chronic pain syndrome: Code(s): G89.4 - Chronic pain syndrome Category: Medical (8) Psoriatic arthritis: Code(s): L40.50 - Arthropathic psoriasis, unspecified Category: Medical (9) Severe major depression: Comment: All psychiatric medications through Psychiatry 02/21/2024: Do not want to see him anymore patient is not happy with the care Taking only quetiapine and duloxetine 20 mg restarted Code(s): F32.2 - Major depressive disorder, single episode, severe without psychotic features Category: Medical (10) Obesity due to excess calories: Comment: Make healthy food choices . Eat lots of fruits, vegetables, whole grains, and low-fat dairy products. Limit the amount of meat and fried or fatty foods that you eat. Be active Walk, garden, or do something active for 30 minutes or more on most days of the week. If you smoke, stop smoking. Smoking increases the chance of heart attack or stroke, or develop cancer.If you are over weight, Lose weight, Being overweight increases the risk of many health problems. Avoid alcohol Alcohol can increase blood sugar and blood pressure. Code(s): E66.09 - Other obesity due to excess calories Category: Medical Qualifiers: Obesity classification: adult class 2 (BMI 35 - 39.9) Serious obesity comorbidity presence: with serious comorbidity Body mass index: BMI 38.0-38.9 Qualified Code(s): E66.01 - Morbid (severe) obesity due to excess calories; Z68.38 - Body mass index [BMI] 38.0-38.9, adult (11) Anxiety, generalized: Code(s): F41.1 - Generalized anxiety disorder Category: Medical (12) Sacroiliitis: Code(s): M46.1 - Sacroiliitis, not elsewhere classified Category: Medical (13) Osteoarthritis involving multiple joints on both sides of body: Code(s): M15.9 - Polyosteoarthritis, unspecified Category: Medical Plan History - bulleted - The patient is a 64-year-old female presenting with persistent cough - Cough began approximately one month ago following a stomach bug. - Associated symptoms: congested head, difficulty breathing during coughing fits, occasional expectoration described as chunks. - Home testing for COVID-19 and RSV was negative. - Prior intervention has included [id number] medications; however, symptoms persist. - Thoracic muscle spasms first occurred over a year ago, initially evaluated in the emergency room. Cooly Dickonson when it started months ago - Symptoms include back tightening, radiating to the front, with breathing difficulty noted. - Recent recurrence noted when traveling from [place] to home; stress and anxiety noted as potential exacerbating factors. - Current muscle and lower back discomfort described as severely limiting; requires as-needed use of Tramadol. Continued to have urine incontinence, referral to Urology placed for evaluation Problem List - Persistent Cough - Thoracic Muscle Spasm - Lower Back Pain Chronic GERD Depression Difficulty sleeping Pain management Multiple joint osteoarthritis Lipid disorder Obesity Vitamin-D deficiency Chronic constipation Medication list reviewed Review of Systems - Respiratory: Reports persistent cough, head congestion, and breathing difficulties - Neuromuscular: Reports thoracic muscle spasms and lower back pain General: No fever no chills neurological: No headaches no dizziness ear nose throat: No sore throat no hearing difficulty no ear pain cardiovascular: No syncope, no chest pain, no palpitations gastrointestinal: No nausea vomiting or diarrhea endocrine: No polyuria polydipsia no heat intolerance genitourinary: No dysuria skin: No new complaints Physical Exam general: No acute distress HEENT: Congested in the head neck: Supple respiratory system: Lungs are clear, no difficulty breathing noted cardiovascular: S1-S2 gastrointestinal: No pain extremities: No new findings INSTITUTIONAL ASSET MANAGER: Alert awake oriented x3 motor sensory intact skin: Normal turgor Patient Instructions - Continue current medications as prescribed - Take prescribed prednisone and amoxicillin as directed - Use muscle relaxants as needed for relief from muscle spasms, cautioning about possible drowsiness - Schedule routine labs and follow up in three months - Seek medical attention if breathing difficulties or symptoms worsen Follow-up 3 months 45 minutes spent in care of this patient Orders: Orders Lipid Panel 2 Months E66.01 - Morbid (severe) obesity due to excess calories, E78.9 - Disorder of lipoprotein metabolism, unspecified, F32.2 - Major depressive disorder, single episode, severe without psychotic features, F41.1 - Generalized anxiety disorder, G47.61 - Periodic limb movement disorder, G47.9 - Sleep disorder, unspecified, G89.4 - Chronic pain syndrome, J45.40 - Moderate persistent asthma, uncomplicated, K21.9 - Gastro-esophageal reflux disease without esophagitis, L40.50 - Arthropathic psoriasis, unspecified, M15.9 - Poly osteoarthritis, unspecified, M46.1 - Sacroiliitis, not elsewhere classified, Z68.38 - Body mass index [BMI] 38.0-38.9, adult Complete Blood Count Auto Diff 2 Months E66.01 - Morbid (severe) obesity due to excess calories, E78.9 - Disorder of lipoprotein metabolism, unspecified, F32.2 - Major depressive disorder, single episode, severe without psychotic features, F41.1 - Generalized anxiety disorder, G47.61 - Periodic limb movement disorder, G47.9 - Sleep disorder, unspecified, G89.4 - Chronic pain syndrome, J45.40 - Moderate persistent asthma, uncomplicated, K21.9 - Gastro-esophageal reflux disease without esophagitis, L40.50 - Arthropathic psoriasis, unspecified, M15.9 - Polyosteoarthritis, unspecified, M46.1 - Sacroiliitis, not elsewhere classified, Z68.38 - Body mass index [BMI] 38.0-38.9, adult Comprehensive [place]. Panel Fast 2 Months E66.01 - Morbid (severe) obesity due to excess calories, E78.9 - Disorder of lipoprotein metabolism, unspecified, F32.2 - Major depressive disorder, single episode, severe without psychotic features, F41.1 - Generalized anxiety disorder, G47.61 - Periodic limb movement disorder, G47.9 - Sleep disorder, unspecified, G89.4 - Chronic pain syndrome, J45.40 - Moderate persistent asthma, uncomplicated, K21.9 - Gastro-esophageal reflux disease without esophagitis, L40.50 - Arthropathic psoriasis, unspecified, M15.9 - Polyosteoarthritis, unspecified, M46.1 - Sacroiliitis, not elsewhere classified, Z68.38 - Body mass index [BMI] 38.0-38.9, adult Referrals Urology Referral R32 - Unspecified urinary incontinence Medications: New cyclobenzaprine 5 mg PO BEDTIME PRN 30 tabs 0RF muscle spasm prednisone 10 mg PO DAILY 5 days 5 tabs 0RF amoxicillin 500 mg PO Q8H 5 days 15 caps 0RF Changed From tramadol 50 mg PO BID 15 days PRN 30 tabs 0RF pain To tramadol 50 mg PO BID 60 days PRN 30 tabs 0RF pain
== END 2024-07-23 09:08 | disposition home or self-care (01) ==
PROVIDERS: PCP Internal Medicine; Visit Provider Internal Medicine
DX: L40.50 Arthropathic psoriasis, unspecified (principal); F32.2 Major depressive disorder, single episode, severe without psychotic features; E66.01 Morbid (severe) obesity due to excess calories; M46.1 Sacroiliitis, not elsewhere classified; Z68.38 Body mass index [BMI] 38.0-38.9, adult; R32 Unspecified urinary incontinence; E78.9 Disorder of lipoprotein metabolism, unspecified; J45.40 Moderate persistent asthma, uncomplicated; G47.9 Sleep disorder, unspecified; G47.61 Periodic limb movement disorder; K21.9 Gastro-esophageal reflux disease without esophagitis; G89.4 Chronic pain syndrome

== ENCOUNTER → 2024-07-23 08:36 | Outpatient (BNVA) | payer MEDICARE, MEDICAID, SELFPAY | PROVIDERS: PCP Internal Medicine; Visit Provider Internal Medicine | DX: R32 Unspecified urinary incontinence (principal); E78.9 Disorder of lipoprotein metabolism, unspecified; J45.40 Moderate persistent asthma, uncomplicated; G47.9 Sleep disorder, unspecified; G47.61 Periodic limb movement disorder; K21.9 Gastro-esophageal reflux disease without esophagitis; G89.4 Chronic pain syndrome; L40.50 Arthropathic psoriasis, unspecified; F32.2 Major depressive disorder, single episode, severe without psychotic features; E66.01 Morbid (severe) obesity due to excess calories; Z68.38 Body mass index [BMI] 38.0-38.9, adult; F41.1 Generalized anxiety disorder; M46.1 Sacroiliitis, not elsewhere classified; M15.9 Polyosteoarthritis, unspecified | CPT/HCPCS: 99212 ==

== ENCOUNTER 2024-09-13 12:19 | Outpatient (AMB) | payer MEDICARE, SELFPAY ==
--- NOTE | 2024-09-13 12:19 | A.OFFPC_ITS ---
Intake Visit Reasons: For Pain Allergies adhesive tape [ADHESIVE TAPE] Allergy (Severe, Verified 07/23/24 08:50) SKIN TEARS pramipexole Allergy (Severe, Verified 07/23/24 08:50) Diarrhea adalimumab [From Humira] Allergy (Intermediate, Verified 07/23/24 08:50) Itching carisoprodol [From SOMA] Allergy (Intermediate, Verified 07/23/24 08:50) SWELLING, RASH cephalexin Allergy (Intermediate, Verified 07/23/24 08:50) Itching gabapentin Allergy (Intermediate, Verified 07/23/24 08:50) leg swelling sulfamethoxazole [From BACTRIM] Allergy (Intermediate, Verified 07/23/24 08:50) SWELLING,RASH trimethoprim [From BACTRIM] Allergy (Intermediate, Verified 07/23/24 08:50) SWELLING,RASH Medication List - Last Reconciled 09/13/24 by Amaya Harris MD acetaminophen 650 mg (2 x 325 mg) PO Q6H PRN 30 days albuterol sulfate 90 mcg/actuation 2 puffs inhalation Q6H PRN amoxicillin 500 mg PO Q8H 5 days bisacodyl (Dulcolax (bisacodyl)) 10 mg (2 x 5 mg) PO BEDTIME cholecalciferol (vitamin D3) 1,250 mcg PO QWEEK cholestyramine-aspartame 4 gram (Cholestyramine Light) 4 grams PO QIDACHS 90 days cyclobenzaprine 5 mg PO BEDTIME PRN diclofenac sodium 25 mg PO BID PRN 30 days duloxetine 40 mg PO DAILY 90 days esomeprazole magnesium (Nexium) 40 mg PO DAILY linaclotide (Linzess) 145 mcg PO DAILY prednisone 10 mg PO DAILY 5 days quetiapine (Seroquel) 50 mg (2 x 25 mg) PO BEDTIME 90 days simvastatin 40 mg PO BEDTIME 90 days tramadol 50 mg PO BID PRN 60 days walker Folding Front wheeled walker Tobacco use date assessed: 07/23/24 Dental Screening Dental Screen Date: 07/23/24 [facility] Medical History (Updated 07/23/24 @ 13:27 by Amaya Harris MD) History of COVID-19 Chest pain JOHN positive Chronic pain syndrome Postlaminectomy syndrome of lumbar region Postlaminectomy syndrome of cervical region Chronic GERD Periodic limb movement disorder Sleeping difficulty Sciatica, right side Asthma, moderate Constipation by delayed colonic transit Pre-diabetes DJD (degenerative joint disease) Lipid disorder Bursitis of right shoulder Right shoulder pain Spinal stenosis Back pain Fibromyalgia Degenerative disc disease Surgical History (Updated 05/14/24 @ 09:20 by Melva Mayes [facility]) History of total right knee replacement History of lumbar fusion S/P placement of nerve stimulator History of sleeve gastrectomy History of esophagogastroduodenoscopy (EGD) H/O colonoscopy History of gastric bypass Hx of cholecystectomy H/O: hysterectomy H/O spinal fusion H/O shoulder surgery Family History Father No problems noted. Mother No problems noted. Other Mental health disorder Social History Household Members: Other Household Members Other:: son Housing: House Are you a primary critical care nurse practitioner to a significant other at home: No Do you presently have visiting nurse or other home services: No Alcohol intake: current Alcohol intake frequency: holidays/special occasions only Comment: pts baseline pain is 6/10 Patient Tobacco Use Status: Former Tobacco user Tobacco use type: Cigarette Years Smoked: 30 e-Cigarette/Vaping Use: Never Used Second Hand Smoke Exposure: No Substance Use Type: Marijuana service: No Current occupational status: disabled Current occupation: right handed Cognitive needs: No Hearing needs: No Vision needs: Yes Questionnaire Thrive Questionnaire Date Thrive assessed: 07/23/24 CATARINA-7 AMB Questionnaire CATARINA-7 Date CATARINA - 7 assessed: 02/21/24 Source: Developed by Drs. Andrew Lamb, Julia Olivas, Alfonso Silva and colleagues, with an educational elvia from [employer] Physical exam (Primary Care) Tobacco/Smoking Status: Tobacco use Status Tobacco use date assessed 07/23/24 07/23/24 08:55 Patient Tobacco Use Status Former Tobacco user 07/23/24 08:51 Tobacco use type Cigarette 07/23/24 08:51 e-Cigarette/Vaping Use Never Used 07/23/24 08:51 Thrive Assessment: Date of Thrive Assessment Date Thrive assessed 07/23/24 07/23/24 08:55 Coding
--- NOTE | 2024-09-13 12:19 | A.OFFPC_ITS ---
Intake Visit Reasons: For Pain Allergies adhesive tape [ADHESIVE TAPE] Allergy (Severe, Verified 09/13/24 12:20) SKIN TEARS pramipexole Allergy (Severe, Verified 09/13/24 12:20) Diarrhea adalimumab [From Humira] Allergy (Intermediate, Verified 09/13/24 12:20) Itching carisoprodol [From SOMA] Allergy (Intermediate, Verified 09/13/24 12:20) SWELLING, RASH cephalexin Allergy (Intermediate, Verified 09/13/24 12:20) Itching gabapentin Allergy (Intermediate, Verified 09/13/24 12:20) leg swelling sulfamethoxazole [From BACTRIM] Allergy (Intermediate, Verified 09/13/24 12:20) SWELLING,RASH trimethoprim [From BACTRIM] Allergy (Intermediate, Verified 09/13/24 12:20) SWELLING,RASH Medication List - Last Reconciled 09/13/24 by Amaya Harris MD acetaminophen 650 mg (2 x 325 mg) PO Q6H PRN 30 days albuterol sulfate 90 mcg/actuation 2 puffs inhalation Q6H PRN amoxicillin 500 mg PO Q8H 5 days bisacodyl (Dulcolax (bisacodyl)) 10 mg (2 x 5 mg) PO BEDTIME cholecalciferol (vitamin D3) 1,250 mcg PO QWEEK cholestyramine-aspartame 4 gram (Cholestyramine Light) 4 grams PO QIDACHS 90 days cyclobenzaprine 5 mg PO BEDTIME PRN diclofenac sodium 25 mg PO BID PRN 30 days duloxetine 40 mg PO DAILY 90 days esomeprazole magnesium (Nexium) 40 mg PO DAILY linaclotide (Linzess) 145 mcg PO DAILY prednisone 10 mg PO DAILY 5 days quetiapine (Seroquel) 50 mg (2 x 25 mg) PO BEDTIME 90 days simvastatin 40 mg PO BEDTIME 90 days tramadol 50 mg PO BID PRN 60 days walker Folding Front wheeled walker Tobacco use date assessed: 09/13/24 Dental Screening Dental Screen Date: 09/13/24 HPI For Pain HPI Details This is a telemedicine visit for pain management Patient is scheduled for back procedure 27 of September meanwhile she is requesting oxycodone for pain management Patient says that tramadol is not helping her with the pain and she continued to have severe pain in her back and legs She is having difficulty taking care of herself. Patient is aware of side effect of oxycodone I have sent 28 tablets for next 14 days [facility] Medical History History of COVID-19 Chest pain JOHN positive Chronic pain syndrome Postlaminectomy syndrome of lumbar region Postlaminectomy syndrome of cervical region Chronic GERD Periodic limb movement disorder Sleeping difficulty Sciatica, right side Asthma, moderate Constipation by delayed colonic transit Pre-diabetes DJD (degenerative joint disease) Lipid disorder Bursitis of right shoulder Right shoulder pain Spinal stenosis Back pain Fibromyalgia Degenerative disc disease Surgical History History of total right knee replacement History of lumbar fusion S/P placement of nerve stimulator History of sleeve gastrectomy History of esophagogastroduodenoscopy (EGD) H/O colonoscopy History of gastric bypass Hx of cholecystectomy H/O: hysterectomy H/O spinal fusion H/O shoulder surgery Family History Father No problems noted. Mother No problems noted. Other Mental health disorder Social History Household Members: Other Household Members Other:: son Housing: House Are you a primary resident care provider to a significant other at home: No Do you presently have visiting nurse or other home services: No Alcohol intake: current Alcohol intake frequency: holidays/special occasions only Comment: pts baseline pain is 6/10 Patient Tobacco Use Status: Former Tobacco user Tobacco use type: Cigarette Years Smoked: 30 e-Cigarette/Vaping Use: Never Used Second Hand Smoke Exposure: No Substance Use Type: Marijuana service: No Current occupational status: disabled Current occupation: right handed Cognitive needs: No Hearing needs: No Vision needs: Yes Questionnaire Thrive Questionnaire Date Thrive assessed: 07/23/24 CATARINA-7 AMB Questionnaire CATARINA-7 Date CATARINA - 7 assessed: 02/21/24 Source: Developed by Drs. Andrew Lamb, Julia Olivas, Alfonso Silva and colleagues, with an educational elvia from [employer] Review of Systems Const All systems reviewed & are unremarkable except as noted in HPI and below Physical exam (Primary Care) Tobacco/Smoking Status: Tobacco use Status Tobacco use date assessed 09/13/24 09/13/24 12:20 Patient Tobacco Use Status Former Tobacco user 09/13/24 12:19 Tobacco use type Cigarette 09/13/24 12:19 e-Cigarette/Vaping Use Never Used 09/13/24 12:19 Thrive Assessment: Date of Thrive Assessment Date Thrive assessed 07/23/24 09/13/24 12:19 Telehealth Telehealth Telehealth Platform: [facility] Location of provider rendering services: practice address Location of patient: address on file Patient Identification confirmed using: Name, : Yes Telehealth method: voice only Patient verbally consented to treatment: Yes Patient verbally consented to billing insurance company: Yes Patient informed of any privacy concerns related to visit: Yes Minutes spent on Phone/Video with Pt.: 11 Coding Level of Care Code Tele Est Pt Level 3 (01316) Diagnoses Sacroiliitis M46.1 Malfunction of spinal cord stimulator, sequela T85.192S Encounter type: sequela Assessment & Plan Assessment & Plan (1) Sacroiliitis: Code(s): M46.1 - Sacroiliitis, not elsewhere classified Category: Medical (2) Spinal cord stimulator dysfunction: Code(s): T85.192A - Other mechanical complication of implanted electronic neurostimulator of spinal cord electrode (lead), initial encounter Category: Medical Qualifiers: Encounter type: sequela Qualified Code(s): T85.192S - Other mechanical complication of implanted electronic neurostimulator of spinal cord electrode (lead), sequela Plan This is a telemedicine visit for pain management Patient is scheduled for back procedure 27 of September meanwhile she is requesting oxycodone for pain management Patient says that tramadol is not helping her with the pain and she continued to have severe pain in her back and legs She is having difficulty taking care of herself. Patient is aware of side effect of oxycodone I have sent 28 tablets for next 14 days Medications: New oxycodone Partial Fill upon patient request. 5 mg PO BID PRN 28 tabs 0RF pain Discontinued tramadol Discontinued Reason: Doctor's Order 50 mg PO BID 60 days PRN 30 tabs 0RF pain
--- OUTSIDE RECORDS SUMMARY | 2024-09-13 13:01 | XMS_ITS | Patient Health Record ---
Author Organization [facility] Address [address] [place] [address] Care Team Providers Care Brasswind Instrument Repairer Name Role Phone Steven MILLIGAN, Asma Primary Care Provider Andrew Dennis [phone] ALLERGIES Allergen (clinical drug ingredient) Drug/Non Drug Allergy documented on EMR Reaction Allergy Type Onset Date Status carisoprodol Soma Unknown Drug Allergy Acti ve sulfamethoxazole / trimethoprim Bactrim Unknown Drug Allergy Active REASON FOR REFERRAL No Information MEDICATIONS Medication SIG (Take, Route, Frequency, Duration) Notes Start Date End Date Status Simvastatin 40 MG Orally Ac tive Omeprazole 20 MG TAKE 1 CAPSULE BY [facility] TWICE A DAY for 90 Active Incruse Ellipta Acti ve busPIRone HCl 5 MG 1 tablet Orally/prn Three times a day Active Venlafaxine HCl ER A ctive busPIRone HCl 5 MG 1 tablet Orally Twic e a day 12/03/2020 Active Non-Aspirin Active Topamax 25 MG 1 tablet Orally Twic e a day Active Flexeril PRN Active Vitamin D3 Active Melatonin Active Zofran 4 MG 1 tablet Orally Q 6 hours prn nausea 10/15/2020 Active Celecoxib Not-Taking clonazePAM Active Clobetasol Propionate Active Methotrexate 2.5 MG as directed Orally Active Folic Acid 1 MG 1 tablet Orally Once a day for 30 day(s) Active IMMUNIZATIONS Vaccine Route Administration Date Status Comme nts Influenza Unknown 04/01/2020 Administered SOCIAL HISTORY Tobacco Use: Social History Observation Description Date Details (start date - stop date) Former Smoker NA - NA Sex Assigned At : Social History Observation Description Sex Assigned At Unknown Tobacco Use/Smoking Question Answer Notes Patient is a former smoker How long has it been since you last smoked? > 10 years PROBLEMS Problem Type ICD Code Onset Dates Problem Status W/U Status Risk SNOMED Code Notes Problem Epigastric abdominal pain (R10.13) Active confirmed Epigastric pain (59500221) Problem Irritable bowel syndrome (K58.9) Active confirmed Irritable bowel syndrome (23629803) Problem Valverde's esophagus without dysplasia (K22.70) Active confirmed 821624238 Problem Early satiety (R68.81) Active confirmed Early satiety (168959873) Problem GERD (gastroesophage al reflux disease) (K21.9) Active confirmed Gastroesophagea l reflux disease (060082835) Problem Vomiting (R11.10) Active confirmed Vomiting (689464707) Problem Irritable bowel syndrome with constipation (K58.1) Active confirmed 057270092 PLAN OF TREATMENT Pending Test Test Name Order Date NUC GASTRIC ANTRUM EMPTYING 10/14/2020 Future Test Test Name Order Date COLONOSCOPY 04/14/2015 UPPER GI ENDOSCOPY 10/07/2020 Insurance Providers Payer Name Payer Address Payer Phone Subscriber Number Group Number Insured Name Patient Relationship to Insured Coverage Start Date Coverage End Date MEDICARE OF [place] [address] [place] [phone] [id number] FARHAN PETERSON Self - patient is the insured MEDICAID OF [facility] [address] [place] [address] [id number] FARHAN PETERSON Self - patient is the insured MEDICAL (GENERAL) HISTORY Medical History History ICD Code Chronic neck and back pain from degenera tive disc disease Denies [place],DM,CVA,renal disease Asthma Fibromyalgia Distant hx of stomach ulcers Hyperlipidemia IBS-chronic constipation Degenerative joint disease Back pain Negative screening colonoscopy in 5 Rheumatoid arthritis-Dr. Christopher EGD in 09/2020--minimal hiata l hernia, minimal changes of gastritis, and minimal changes of reflux; gastric biopsies were negative for H. pylori; biopsies from the gastroesophageal junction revealed small areas of Valverde's esophagus without dysplasia Valverde's esophagus as above Normal nuclear medicine gastric emptying study in October of [address] scan of abdomen and pelvis in August 2020 Surgical History Surgery Date(Month/Year) C-spine fusion x 2 surgeries [facility] Partial hysterectomy Laparoscopy for adhesions Hernia surgery Back surgery Gastric sleeve surgery 06/[address] Vaughn Left shoulder surgery
== END 2024-09-13 14:17 | disposition home or self-care (01) ==
LOC: HO.HMCC 12:19
PROVIDERS: PCP Internal Medicine; Visit Provider Internal Medicine
DX: M46.1 Sacroiliitis, not elsewhere classified (principal); T85.192S Other mechanical complication of implanted electronic neurostimulator of spinal cord electrode (lead), sequela

== ENCOUNTER 2024-09-20 10:32 | Outpatient (AMB) | payer MEDICARE, MEDICAID, SELFPAY ==
--- NOTE | 2024-09-20 10:41 | MHC.OFFVIS ---
Intake Visit Reasons: Urinary incontinence Intake Note: New Patient is present for urinary incontinence Any Urology Meds: none Antibiotic Allergies: sulfa Blood Thinners: none Family History: Bladder Ca? Prostate Ca? Previous Urologists? Furnace Door Tender Required: No Accompanied by: Self / Same As Patient Allergies adhesive tape [ADHESIVE TAPE] Allergy (Severe, Verified 09/20/24 10:50) SKIN TEARS pramipexole Allergy (Severe, Verified 09/20/24 10:50) Diarrhea adalimumab [From Humira] Allergy (Intermediate, Verified 09/20/24 10:50) Itching carisoprodol [From SOMA] Allergy (Intermediate, Verified 09/20/24 10:50) SWELLING, RASH cephalexin Allergy (Intermediate, Verified 09/20/24 10:50) Itching gabapentin Allergy (Intermediate, Verified 09/20/24 10:50) leg swelling sulfamethoxazole [From BACTRIM] Allergy (Intermediate, Verified 09/20/24 10:50) SWELLING,RASH trimethoprim [From BACTRIM] Allergy (Intermediate, Verified 09/20/24 10:50) SWELLING,RASH Medication List - Last Reconciled 09/20/24 by Silvana Méndez MD acetaminophen 650 mg (2 x 325 mg) PO Q6H PRN 30 days albuterol sulfate 90 mcg/actuation 2 puffs inhalation Q6H PRN bisacodyl (Dulcolax (bisacodyl)) 10 mg (2 x 5 mg) PO BEDTIME cholecalciferol (vitamin D3) 1,250 mcg PO QWEEK cyclobenzaprine 5 mg PO BEDTIME PRN diclofenac sodium 25 mg PO BID PRN 30 days mirabegron ER (Myrbetriq) 50 mg PO DAILY oxycodone 5 mg PO BID PRN simvastatin 40 mg PO BEDTIME 90 days HPI Comments Details: Kaylah is a 64-year-old female presenting with urinaryincontinence, with symptoms persisting over the last five months. She describes an inability to delay urination resulting in incontinence upon reaching her destination after feeling the urge. This condition has significantly changed from her previous ability to hold urine, also has noticed similar changes with bowel control. She has a notable history of Obesity, and Degenerative disc disease and underwent cervical spine fusion many years ago, due to spontaneous disc rupture, and has additional lumbar fusion. The degeneration has led to the need for routine lumbar/sacral region injections every three months as part of pain management. The back issues were attributed to worsening spinal conditions over time without noted injury. Discussed potential bladder irritants like spicy foods and sodas, she keeps caffeine to one cup of coffee in the morning. There are no reports of dysuria or prior urinary tract infections in recent history. Urinary Symptoms Review - Reports bladder incontinence with accidental leakage before reaching the restroom. - Urinary urgency without the ability to delay urination. - Nocturia, with frequent nighttime urination. - Symptoms have been present for approximately five months. - Absence of burning sensation during urination. - No recent history of urinary tract infections. - Diet modifications include reduced caffeine intake and avoidance of spicy foods. - Engaged in routine pain management for back, including injections in the sacral area every three months. Physical Exam General: Cooperative, healthy appearing and no acute distress Orientation and Consciousness: Patient oriented x3 Head: Yes normal to inspection, Yes normocephalic and Yes atraumatic Eyes: Conjunctivae normal Neck: Yes normal visual inspection and Yes trachea midline Chest: Normal inspection of the chest Respiratory: Normal respiratory effort GI: Normal to inspection Neuro: Patient oriented x3 Psych: Appearance grossly normal [facility] Medical History History of COVID-19 Chest pain JOHN positive Chronic pain syndrome Postlaminectomy syndrome of lumbar region Postlaminectomy syndrome of cervical region Chronic GERD Periodic limb movement disorder Sleeping difficulty Sciatica, right side Asthma, moderate Constipation by delayed colonic transit Pre-diabetes DJD (degenerative joint disease) Lipid disorder Bursitis of right shoulder Right shoulder pain Spinal stenosis Back pain Fibromyalgia Degenerative disc disease Surgical History History of total right knee replacement History of lumbar fusion S/P placement of nerve stimulator History of sleeve gastrectomy History of esophagogastroduodenoscopy (EGD) H/O colonoscopy History of gastric bypass Hx of cholecystectomy H/O: hysterectomy H/O spinal fusion H/O shoulder surgery Family History Father No problems noted. Mother No problems noted. Other Mental health disorder Social History Household Members: Other Household Members Other:: son Housing: House Are you a primary outdoor emergency care technician to a significant other at home: No Do you presently have visiting nurse or other home services: No Alcohol intake: current Alcohol intake frequency: holidays/special occasions only Comment: pts baseline pain is 6/10 Patient Tobacco Use Status: Former Tobacco user Tobacco use type: Cigarette Years Smoked: 30 e-Cigarette/Vaping Use: Never Used Second Hand Smoke Exposure: No Substance Use Type: Marijuana service: No Current occupational status: disabled Current occupation: right handed Cognitive needs: No Hearing needs: No Vision needs: Yes Review of Systems Const All systems reviewed & are unremarkable except as noted in HPI and below Reports no additional complaints Eyes Reports no additional complaints ENT Reports no additional complaints Card Reports no additional complaints Resp Reports no additional complaints GI Reports no additional complaints Reports as per HPI Musc Reports no additional complaints Skin/Breast Reports system reviewed and no additional complaints, except as documented Neuro Reports no additional complaints Psych Reports no additional complaints Endo Reports no additional complaints Rajeev/Lymph Reports no additional complaints Aller/Immun Reports no additional complaints Office Procedures Post Void Residual Post Residual Void Post Void Residual (PVR): 0 [id number] Void Residual by ultrasound Assessment & Plan Assessment & Plan (1) Urine incontinence: Code(s): R32 - Unspecified urinary incontinence Category: Medical Qualifiers: Urinary Incontinence type: unspecified incontinence Qualified Code(s): R32 - Unspecified urinary incontinence (2) Nocturia more than twice per night: Code(s): R35.1 - Nocturia Category: Medical (3) Urinary urgency: Code(s): R39.15 - Urgency of urination Category: Medical (4) Fecal urgency: Code(s): R15.2 - Fecal urgency Category: Medical Plan Discussion Notes I discussed management plan includes pharmacotherapy, as well as lifestyle adjustments to include limiting bladder irritants like caffeine. Pelvic floor physical therapy was suggested as a non-pharmacological approach to improve pelvic control. I explained the possible need for a urodynamic study if initial treatments do not suffice, to gain insight into bladder function. I will conduct a follow-up in 10 weeks to evaluate the medication's efficacy and review results from ordered kidney and bladder ultrasound. I encouraged the patient to contact the office if there are issues with medication procurement. Plan Management of bladder incontinence will involve initiating pharmacotherapy aimed at bladder spasm reduction. Concurrently, dietary modifications shall support symptom control by reducing bladder irritants. A referral to pelvic floor physical therapy is advised to fortify muscle support for continence. In the event of suboptimal response to medication, consideration of urodynamic testing may provide further insight into bladder function. Regular reassessment of her condition will occur in a follow-up after 10 weeks, including a review of any renal or bladder imaging completed. Ongoing coordination with her existing pain management care remains critical. Orders: Orders AMB Post Void Residual by ultrasound Today R32 - Unspecified urinary incontinence Medications: New mirabegron ER (Myrbetriq) 50 mg PO DAILY 30 tabs 3RF Patient Instructions: Patient Instructions - Begin prescribed medication for bladder spasms. - Limit caffeine intake to one cup per day and avoid spicy foods and sodas. - Follow the referral to pelvic floor physical therapy. - Return to the office in 10 weeks for a follow-up. - Monitor symptoms and notify the office if there are any issues with medications or if symptoms worsen. The patient had an opportunity to ask questions regarding treatment plan. The patient expressed understanding and agreement with the above treatment plan. The patient is aware they should contact our office by phone for worsening of their current condition or the appearance of new symptoms. Compliance is encouraged with any medications and followup testing that is ordered. It is a privilege to be allowed the opportunity to participate in the urologic care of your patient. If you have any questions or concerns regarding treatment for the above conditions please do not hesitate to contact me. The office telephone contact is [phone]. This note is constructed in part using voice recognition software. While every effort has been made to ensure accuracy physical therapy teacher errors may have been included. Yours sincerely, Silvana Méndez MD Scribe Plan - Not visible on output: Patient was informed and verbally consented to the use of an ambient scribe for clinic note documentation during this visit. Coding Level of Care Code New Pt Level 4 (92003) Diagnoses Urinary incontinence, unspecified type R32 Urinary Incontinence type: unspecified incontinence Nocturia more than twice per night R35.1 Urinary urgency R39.15 Fecal urgency R15.2 CPT Codes Post Residual Void - PVR CPT Code: 69988-Lhqq Void Residual by ultrasound ([id number])
--- OUTSIDE RECORDS SUMMARY | 2024-09-20 12:00 | XMS_ITS | Patient Health Record ---
Author Organization [facility] Address [address] [place] [address] Care Team Providers Care Computer Help Desk Specialist Name Role Phone Steven MILLIGAN, Asma Primary Care Provider Andrew Dennis [phone] ALLERGIES Allergen (clinical drug ingredient) Drug/Non Drug Allergy documented on EMR Reaction Allergy Type Onset Date Status carisoprodol Soma Unknown Drug Allergy Acti ve Bactrim Unknown Drug Allergy Active REASON FOR REFERRAL No Information MEDICATIONS Medication SIG (Take, Route, Frequency, Duration) Notes Start Date End Date Status Simvastatin 40 MG Orally Ac tive Omeprazole 20 MG TAKE 1 CAPSULE BY [facility] TWICE A DAY for 90 Active Incruse [...] abdominal pain (R10.13) Active confirmed Epigastric pain (65698865) Problem Irritable bowel syndrome (K58.9) Active confirmed Irritable bowel syndrome (37596216) Problem Valverde's esophagus without dysplasia (K22.70) Active confirmed 037908712 Problem Early satiety (R68.81) Active confirmed Early satiety (010407767) Problem GERD (gastroesophage al reflux disease) (K21.9) Active confirmed Gastroesophagea l reflux disease (361645948) Problem Vomiting (R11.10) Active confirmed Vomiting (860317429) Problem Irritable bowel syndrome with constipation (K58.1) Active confirmed 609524565 PLAN OF TREATMENT Pending Test Test Name Order Date NUC GASTRIC ANTRUM EMPTYING 10/14/2020 Future Test Test Name Order Date COLONOSCOPY 04/14/2015 UPPER GI ENDOSCOPY 10/07/2020 Insurance Providers Payer Name Payer Address Payer Phone Subscriber Number Group Number Insured Name Patient Relationship to Insured Coverage Start Date Coverage End Date MEDICARE OF [place] [address] [place] [id number] FARHAN PETERSON Self - patient is the insured MEDICAID OF [facility] [address] [place] [address] [id number] FARHAN PETERSON Self - patient is the insured MEDICAL (GENERAL) HISTORY Medical History History ICD Code Chronic neck and back pain from degenera tive disc disease Denies [place],DM,CVA,renal disease Asthma Fibromyalgia Distant hx of stomach [...]
== END 2024-09-20 11:21 | disposition home or self-care (01) ==
PROVIDERS: PCP Internal Medicine; Visit Provider Urology
DX: R32 Unspecified urinary incontinence (principal); R35.1 Nocturia; R39.15 Urgency of urination; R15.2 Fecal urgency
CPT/HCPCS: 99204

== ENCOUNTER → 2024-09-20 10:32 | Outpatient (BNVA) | payer MEDICARE, MEDICAID, SELFPAY | PROVIDERS: PCP Internal Medicine; Visit Provider Urology | DX: R32 Unspecified urinary incontinence (principal); R35.1 Nocturia; R39.15 Urgency of urination; R15.2 Fecal urgency | CPT/HCPCS: 51798; 99202 ==

== ENCOUNTER 2024-09-26 08:58 | Outpatient (REF) | payer MEDICARE, SELFPAY ==
--- OUTSIDE RECORDS SUMMARY | 2024-09-26 09:50 | XMS_ITS | Patient Health Record ---
Author Organization [facility] Address [address] [place] [address] Care Team Providers Care Automation Qa Analyst Name Role Phone Steven MILLIGAN, [facility] Primary [facility] Provider Andrew Dennis [phone] Allergies Allergen (clinical drug ingredient) Drug/Non Drug Allergy documented on EMR Reaction Allergy Type Onset Date Status carisoprodol Soma Unknown Drug Allergy Acti ve Bactrim Unknown Drug Allergy Active Reason For Referral No Information Medications Medication SIG (Take, Route, Frequency, Duration) Notes Start Date End Date Status Simvastatin 40 MG Orally Ac tive Omeprazole 20 MG TAKE 1 CAPSULE BY [facility] TWICE A DAY for 90 Active [...] Once a day for 30 day(s) Active Immunizations Vaccine Route Administration Date Status Comme nts Influenza Unknown 04/01/2020 Administered Social History Tobacco Use: Social History Observation Description Date Details (start date - stop date) Former Smoker NA - NA Tobacco Use/Smoking Question Answer Notes Patient is a former smoker How long has it been since you last smoked? > 10 years Section Notes: Nonsmoker since 2009; no sig alcohol Nonsmoker since 2009; no sig alcohol Nonsmoker since 2009; no sig alcohol Problems Problem Type SNOMED Code ICD Code Onset Dates Problem Status W/U Status Risk Notes Problem Epigastric pain (90911852) Epigastric abdominal pain (R10.13) Active confirmed Problem Irritable bowel syndrome (25133909) Irritable bowel syndrome (K58.9) Active confirmed Problem 204921105 Valverde's esophagus without dysplasia (K22.70) Active confirmed Problem Early satiety (791028423) Early satiety (R68.81) Active confirmed Problem Gastroesophageal reflux disease (057608570) GERD (gastroesophage al reflux disease) (K21.9) Active confirmed Problem Vomiting (841895413) Vomiting (R11.10) Active confirmed Problem 192893062 Irritable bowel syndrome with constipation (K58.1) Active confirmed Plan Of Treatment Pending Test Test Name Order Date NUC GASTRIC ANTRUM EMPTYING 10/14/2020 Future Test Test Name Order Date COLONOSCOPY 04/14/2015 UPPER GI ENDOSCOPY 10/07/2020 Insurance Providers Payer Name Payer Address Payer Phone Subscriber Number Group Number Insured Name Patient Relationship to Insured Coverage Start Date Coverage End Date MEDICARE OF [place] [address] [place] [phone] [id number] FARHAN PETERSON Self - patient is the insured MEDICAID OF [facility] [address] [place] [address] [id number] FARHAN PETERSON Self - patient is the insured Medical (General) History Medical History History ICD Code Chronic neck and back pain from degenera tive disc disease Denies [place],DM,CVA,renal disease Asthma Fibromyalgia Distant hx of stomach [...]
[2024-09-26 10:37] LABS: MANUAL DIFF FLAG NO
[2024-09-26 10:50] LABS: Basophils Absolute Auto 0.1 X10*3/uL (0.0-0.2); Basophils Percent Auto 1.4 % (0-2); Eosinophils Absolute Auto 0.2 X10*3/uL (0.0-0.4); Eosinophils Percent Auto 2.9 % (0-4); Hematocrit 41.1 % (37.0-47.0); Hemoglobin 12.7 g/dl (12.0-16.0); Imm Gran Abs Auto 0.03 X10*3/uL (0.00-0.03); Imm Gran Pct Auto 0.4 % (0.0-0.4); Lymphocytes Absolute Auto 2.4 X10*3/uL (1.2-4.9); Lymphocytes Percent Auto 31.3 % (20-40); Mean Corpuscular HGB Conc 30.9 g/dl (31.0-35.0); Mean Corpuscular Hemoglobin 27.1 pg (27.0-33.0); Mean Corpuscular Volume 87.6 fL (80.0-98.0); Mean Platelet Volume 10.7 fL (9.4-12.3); Monocytes Absolute Auto 0.8 X10*3/uL (0.1-1.2); Monocytes Percent Auto 10.7 % (2-11); Neutrophils Absolute Auto 4.1 x10*3/uL (2.0-8.3); Neutrophils Percent Auto 53.3 % (45-73); Platelet Count 343 X10*3/uL (160-400); Red Blood Count 4.69 X10*6/uL (4.20-5.50); Red Cell Distribution Width 14.1 % (11.0-16.0); White Blood Count 7.6 X10*3/uL (4.8-10.8)
[2024-09-26 11:30] LABS: Alanine Aminotransferase 18 U/L (0-31); Albumin Level 4.1 g/dL (3.5-5.0); Alkaline Phosphatase 66 U/L (39-117); Anion Gap 13 (12-20); Aspartate Amino Transferase 28 U/L (5-31); Bilirubin Total 0.4 mg/dL (0.0-1.0); Blood Urea Nitrogen 15 mg/dL (9-16); Calcium 9.3 mg/dL (8.4-10.2); Carbon Dioxide 26 mmol/L (22-29); Chloride 106 mmol/L (96-108); Cholesterol 269 mg/dL (<200); Estimated Glomerular Filt Rate > 60; Glucose Fasting 98 mg/dL (60-99); HDL Cholesterol 49 mg/dL (>40); LDL Cholesterol Calculated 191 mg/dL (<100); Potassium 4.1 mmol/L (3.3-5.1); Sodium 141 mmol/L (135-145); Total Protein 7.2 g/dL (6.5-8.0); Triglycerides 145 mg/dL (<150)
== END 2024-09-26 08:59 | disposition home or self-care (01) ==
LOC: HO.HMGCLDS 08:58
PROVIDERS: PCP Internal Medicine; Visit Provider Internal Medicine
DX: M15.9 Polyosteoarthritis, unspecified (principal); M46.1 Sacroiliitis, not elsewhere classified; F41.1 Generalized anxiety disorder; Z68.38 Body mass index [BMI] 38.0-38.9, adult; E66.01 Morbid (severe) obesity due to excess calories; F32.2 Major depressive disorder, single episode, severe without psychotic features; L40.50 Arthropathic psoriasis, unspecified; E78.9 Disorder of lipoprotein metabolism, unspecified; G89.4 Chronic pain syndrome; K21.9 Gastro-esophageal reflux disease without esophagitis; G47.61 Periodic limb movement disorder; G47.9 Sleep disorder, unspecified; J45.40 Moderate persistent asthma, uncomplicated
CPT/HCPCS: 36415; 80053; 80061; 85025

== ENCOUNTER 2024-10-18 12:01 | Outpatient (AMB) | payer MEDICARE, MEDICAID, SELFPAY ==
--- NOTE | 2024-10-18 12:04 | A.OFFPC_ITS ---
Vital Signs 10/18/24 12:08 Height 5 ft 3 in Weight 204 lb 5 oz BMI 36.2 BP 122/64 Blood Pressure Location Rt brachial Position Sitting Pulse 90 Pulse Source Pulse Oximeter Pulse Oximetry (%) 95 Oxygen Delivery Method Room Air Intake Visit Reasons: 3 months f/up Allergies adhesive tape [ADHESIVE TAPE] Allergy (Severe, Verified 10/18/24 12:09) SKIN TEARS pramipexole Allergy (Severe, Verified 10/18/24 12:09) Diarrhea adalimumab [From Humira] Allergy (Intermediate, Verified 10/18/24 12:09) Itching carisoprodol [From SOMA] Allergy (Intermediate, Verified 10/18/24 12:09) SWELLING, RASH cephalexin Allergy (Intermediate, Verified 10/18/24 12:09) Itching gabapentin Allergy (Intermediate, Verified 10/18/24 12:09) leg swelling sulfamethoxazole [From BACTRIM] Allergy (Intermediate, Verified 10/18/24 12:09) SWELLING,RASH trimethoprim [From BACTRIM] Allergy (Intermediate, Verified 10/18/24 12:09) SWELLING,RASH Medication List - Last Reconciled 10/18/24 by Amaya Harris MD acetaminophen 650 mg (2 x 325 mg) PO Q6H PRN 30 days albuterol sulfate 90 mcg/actuation 2 puffs inhalation Q6H PRN bisacodyl (Dulcolax (bisacodyl)) 10 mg (2 x 5 mg) PO BEDTIME cholecalciferol (vitamin D3) 1,250 mcg PO QWEEK cyclobenzaprine 5 mg PO BEDTIME PRN diclofenac sodium 25 mg PO BID PRN 30 days mirabegron ER (Myrbetriq) 50 mg PO DAILY oxycodone 5 mg PO BID PRN simvastatin 40 mg PO BEDTIME 90 days Tobacco use date assessed: 10/18/24 Fall risk assessment: No Falls in past year Last assessed Fall Risk: 10/18/24 Dental Screening Dental Screen Date: 10/18/24 Did you have a dental visit in the last 12 months?: No Did you have a dental problem in the last 6 months where you did not have access to dental care?: No Was dental information given to patient?: Patient has dentist HPI 3 months f/up HPI Details History - The patient is a 64-year-old female pr esenting with the need for regular follow-up and medication refills. - Post-laminectomy syndrome at L5-S1 per sists despite past interventions. Insurance issues delayed the intended procedural intervention this year due to lack of documented effectiveness. - The patient experiences significant di scomfort from trochanteric bursitis, impacting her range of motion and mobility. Episodes of pain extend from her hip down to her knee. - She has asthma, for which she requires a refill of her inhaler, vital for improved respiration and management, especially with impending warmer weather. - She struggles with effective cholester ol management due to non-compliance with simvastatin, now resulting in elevated cholesterol levels. - Urinary incontinence management is hin dered by insurance approvals, leaving her without prescribed treatment for the condition. - Arthritic pain persists despite previo us use of diclofenac sodium, leading to discontinuation of this medication. Problem List - Post-laminectomy syndrome, L5-S1 - Trochanteric bursitis - Asthma - Hyperlipidemia - Urinary incontinence - pain management Patient Instructions - Refill and regularly take your medicat ions, including simvastatin for cholesterol, and oxycodone for pain as prescribed. Twenty tablets sent patient will need appointment for refill - Use an inhaler as directed for the man agement of asthma symptoms, especially as warmer weather approaches. - referral to orthopedic placed for troc hanteric bursitis Monitor symptoms of asthma, and report any significant changes. Review of Systems - General: No fever no chills - Neurological: No headaches no dizziness - Ear nose throat: No sore throat no hearing difficulty no ear pain - Cardiovascular: No syncope, no chest pain, no palpitations - Gastrointestinal: No nausea vomiting or diarrhea - Endocrine: No polyuria polydipsia no heat intolerance - Genitourinary: No dysuria , no blood in urine Physical Exam - General: No acute distress - HEENT: No acute findings - Neck: Supple - Respiratory system: Able to talk in f ull sentences, no audible wheeze - Cardiovascular: S1-S2 regular in rate and rhythm - Gastrointestinal: No pain - Extremities: No new findings pain ove r trochanteric bursitis right - 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: Alert awake oriented x3 motor se nsory intact - Skin: Normal turgor [facility] Medical History History of COVID-19 Chest pain JOHN positive Chronic pain syndrome Postlaminectomy syndrome of lumbar region Postlaminectomy syndrome of cervical region Chronic GERD Periodic limb movement disorder Sleeping difficulty Sciatica, right side Asthma, moderate Constipation by delayed colonic transit Pre-diabetes DJD (degenerative joint disease) Lipid disorder Bursitis of right shoulder Right shoulder pain Spinal stenosis Back pain Fibromyalgia Degenerative disc disease Surgical History History of total right knee replacement History of lumbar fusion S/P placement of nerve stimulator History of sleeve gastrectomy History of esophagogastroduodenoscopy (EGD) H/O colonoscopy History of gastric bypass Hx of cholecystectomy H/O: hysterectomy H/O spinal fusion H/O shoulder surgery Family History Father No problems noted. Mother No problems noted. Other Mental health disorder Social History Household Members: Other Household Members Other:: son Housing: House Are you a primary child care education coordinator to a significant other at home: No Do you presently have visiting nurse or other home services: No Alcohol intake: current Alcohol intake frequency: holidays/special occasions only Comment: pts baseline pain is 6/10 Patient Tobacco Use Status: Former Tobacco user Tobacco use type: Cigarette Years Smoked: 30 e-Cigarette/Vaping Use: Never Used Second Hand Smoke Exposure: No Substance Use Type: Marijuana service: No Current occupational status: disabled Current occupation: right handed Cognitive needs: No Hearing needs: No Vision needs: Yes Questionnaire PHQ-9 Over the last 2 weeks, how often have you been bothered by any of the following problems? 1. Little interest or pleasure in doing things: more than half the days 2. Feeling down, depressed, or hopeless: several days 3. Trouble falling or staying asleep, or sleeping too much: nearly every day 4. Feeling tired or having little energy: more than half the days 5. Poor appetite or overeating: several days 6. Feeling bad about yourself - or that you are a failure or have let yourself or your family down: several days 7. Trouble concentrating on things, such as reading the newspaper or watching television: not at all 8. Moving or speaking so slowly that other people could have noticed. Or the opposite - being so fidgety or restless that you have been moving around a lot more than usual: not at all 9. Thoughts that you would be better off or of hurting yourself in some way: not at all Total score: 10 Depression Screening Interpretation: Positive Depression Screening Follow-up: Existing condition and In treatment Depression Screening Done: Yes 91454 - PHQ-9 Billing: Yes Source: Developed by Drs. Andrew Lamb, Julia Olivas, Alfonso Silva and colleagues, with an educational elvia from [employer]. Thrive Questionnaire Date Thrive assessed: 10/18/24 I am a: Patient What is your living situation today?: I have a place to live, but I am worried about losing it in the future Within the past 12 months, did the food you bought not last and you didn't have the money to get more?: Sometimes True Within the past 12 months, did you worry whether your food would run out before you got money to buy more?: Never true Do you have trouble paying for medicines?: No Do you have trouble getting transportation to medical appointments?: No Do you have trouble paying your heating and electricity bill?: No Do you have trouble taking care of your child, family member or friend?: No Do you have trouble with day-to-day activities such as bathing, preparing meals, shopping, managing finances, etc.?: Yes Are you currently unemployed and looking for a job?: No Are you interested in more education?: No Please select the resources that you would like help with: None Currently or been in a relationship where the following occur: No concerns reported THRIVE Score: 2 AUDIT C Alcohol Use Questionnaire (AUDIT-C) 1. How often do you have a drink containing alcohol?: Monthly or less 2. How many drinks containing alcohol do you have on a typical day when you are drinking?: 1 or 2 3. How often do you have six or more drinks on one occasion?: Never Total Score: 1 Score Reviewed/Action Taken: Yes CATARINA-7 AMB Questionnaire CATARINA-7 Date CATARINA - 7 assessed: 10/18/24 Feeling nervous, anxious, or on edge: 2 = More than half the days Not being able to stop or control worryin = Several days Worrying too much about different things: 3 = Nearly every day Trouble relaxin = Nearly every day Being so restless that it is hard to sit still: 1 = Several days Becoming easily annoyed or irritable: 1 = Several days Feeling afraid as if something awful might happen: 0 = Not at all Total CATARINA-7 score (0-4 normal; 5-9 mild; 10-14 moderate; 15-21 severe): 11 Source: Developed by Drs. Andrew Lamb, Julia Olivas, Alfonso Silva and colleagues, with an educational elvia from [employer]. CATARINA-7 Assessment Billing CATARINA-7 Assessment Tool: CATARINA-7 Assessment 50334 Physical exam (Primary Care) Vital Signs: Last Vital Signs Pulse 90 10/18/24 12:08 BP 122/64 10/18/24 12:08 Pulse Ox 95 10/18/24 12:08 Oxygen Delivery Method Room Air 10/18/24 12:08 BMI result Body Mass Index 36.2 Tobacco/Smoking Status: Tobacco use Status Tobacco use date assessed 10/18/24 10/18/24 12:09 Patient Tobacco Use Status Former Tobacco user 10/18/24 12:05 Tobacco use type Cigarette 10/18/24 12:05 e-Cigarette/Vaping Use Never Used 10/18/24 12:05 PHQ-9: PHQ-9 Score PHQ-9: Total score 10 10/18/24 12:24 Depression Screening Interpretation: Positive Depression Screening Follow-up: Existing condition and In treatment Thrive Assessment: Date of Thrive Assessment Date Thrive assessed 10/18/24 10/18/24 12:09 Currently or been in a relationship where the following occur: No concerns reported Coding Level of Care Code Est Pt Level 4 (05171) Complex EM visit Add On G2211 Diagnoses Trochanteric bursitis, right hip M70.61 Urinary incontinence, unspecified type R32 Urinary Incontinence type: unspecified incontinence Lipid disorder E78.9 Moderate persistent asthma without complication J45.40 Asthma persistence: persistent Asthma complication type: uncomplicated Sleeping difficulty G47.9 Periodic limb movement disorder G47.61 Chronic GERD K21.9 Chronic pain syndrome G89.4 Psoriatic arthritis L40.50 Severe major depression F32.2 Class 2 severe obesity due to excess calories with serious comorbidity and body mass index (BMI) of 38.0 to 38.9 in adult E66.01; Z68.38 Obesity classification: adult class 2 (BMI 35 - 39.9) Serious obesity comorbidity presence: with serious comorbidity Body mass index: BMI 38.0-38.9 Anxiety, generalized F41.1 Sacroiliitis M46.1 Osteoarthritis involving multiple joints on both sides of body M15.9 Additional Codes CATARINA-7 Assessment Billing - CATARINA-7 Assessment Tool: CATARINA-7 Assessment 99759 ([id number]) PHQ-9 - 69006 - PHQ-9 Billing: Yes ([id number]) Assessment & Plan Assessment & Plan (1) Trochanteric bursitis, right hip: Code(s): M70.61 - Trochanteric bursitis, right hip Category: Medical (2) Urine incontinence: Code(s): R32 - Unspecified urinary incontinence Category: Medical Qualifiers: Urinary Incontinence type: unspecified incontinence Qualified Code(s): R32 - Unspecified urinary incontinence (3) Lipid disorder: Code(s): E78.9 - Disorder of lipoprotein metabolism, unspecified Category: Medical (4) Asthma, moderate: Code(s): J45.909 - Unspecified asthma, uncomplicated Category: Medical Qualifiers: Asthma persistence: persistent Asthma complication type: uncomplicated Qualified Code(s): J45.40 - Moderate persistent asthma, uncomplicated (5) Sleeping difficulty: Code(s): G47.9 - Sleep disorder, unspecified Category: Medical (6) Periodic limb movement disorder: Comment: Stable Code(s): G47.61 - Periodic limb movement disorder Category: Medical (7) Chronic GERD: Code(s): K21.9 - Gastro-esophageal reflux disease without esophagitis Category: Medical (8) Chronic pain syndrome: Code(s): G89.4 - Chronic pain syndrome Category: Medical (9) Psoriatic arthritis: Code(s): L40.50 - Arthropathic psoriasis, unspecified Category: Medical (10) Severe major depression: Comment: All psychiatric medications through Psychiatry 02/21/2024: Do not want to see him anymore patient is not happy with the care Taking only quetiapine and duloxetine 20 mg restarted Code(s): F32.2 - Major depressive disorder, single episode, severe without psychotic features Category: Medical (11) Obesity due to excess calories: Comment: Make healthy food choices . Eat lots of fruits, vegetables, whole grains, and low-fat dairy products. Limit the amount of meat and fried or fatty foods that you eat. Be active Walk, garden, or do something active for 30 minutes or more on most days of the week. If you smoke, stop smoking. Smoking increases the chance of heart attack or stroke, or develop cancer.If you are over weight, Lose weight, Being overweight increases the risk of many health problems. Avoid alcohol Alcohol can increase blood sugar and blood pressure. Code(s): E66.09 - Other obesity due to excess calories Category: Medical Qualifiers: Obesity classification: adult class 2 (BMI 35 - 39.9) Serious obesity comorbidity presence: with serious comorbidity Body mass index: BMI 38.0-38.9 Qualified Code(s): E66.01 - Morbid (severe) obesity due to excess calories; Z68.38 - Body mass index [BMI] 38.0-38.9, adult (12) Anxiety, generalized: Code(s): F41.1 - Generalized anxiety disorder Category: Medical (13) Sacroiliitis: Code(s): M46.1 - Sacroiliitis, not elsewhere classified Category: Medical (14) Osteoarthritis involving multiple joints on both sides of body: Code(s): M15.9 - Polyosteoarthritis, unspecified Category: Medical Plan History - The patient is a 64-year-old female presenting with the need for regular follow-up and medication refills. - Post-laminectomy syndrome at L5-S1 persists despite past interventions. Insurance issues delayed the intended procedural intervention this year due to lack of documented effectiveness. - The patient experiences significant discomfort from trochanteric bursitis, impacting her range of motion and mobility. Episodes of pain extend from her hip down to her knee. - She has asthma, for which she requires a refill of her inhaler, vital for improved respiration and management, especially with impending warmer weather. - She struggles with effective cholesterol management due to non-compliance with simvastatin, now resulting in elevated cholesterol levels. - Urinary incontinence management is hindered by insurance approvals, leaving her without prescribed treatment for the condition. - Arthritic pain persists despite previous use of diclofenac sodium, leading to discontinuation of this medication. Problem List - Post-laminectomy syndrome, L5-S1 - Trochanteric bursitis - Asthma - Hyperlipidemia - Urinary incontinence - pain management Patient Instructions - Refill and regularly take your medications, including simvastatin for cholesterol, and oxycodone for pain as prescribed. Twenty tablets sent patient will need appointment for refill - Use an inhaler as directed for the management of asthma symptoms, especially as warmer weather approaches. - referral to orthopedic placed for trochanteric bursitis Monitor symptoms of asthma, and report any significant changes. Orders: Referrals Orthopedics Referral M70.61 - Trochanteric bursitis, right hip Medications: New albuterol sulfate 90 mcg/actuation 2 puffs inhalation Q6H PRN 8.5 grams 0RF Shortness Of Breath Changed From oxycodone Partial Fill upon patient request. 5 mg PO BID PRN 28 tabs 0RF pain To oxycodone Partial Fill upon patient request. 5 mg PO Q4-6H 30 days PRN 28 tabs 0RF pain Refilled simvastatin 40 mg PO BEDTIME 90 days 90 tabs 2RF Discontinued diclofenac sodium Discontinued Reason: Doctor's Order 25 mg PO BID 30 days PRN 60 tabs 0RF pain
[2024-10-18 12:08] VITALS: BP 122/64; PULSE 90; O2SAT 95; BMI 36.2
== END 2024-10-18 12:33 | disposition home or self-care (01) ==
PROVIDERS: PCP Internal Medicine; Visit Provider Internal Medicine
DX: M46.1 Sacroiliitis, not elsewhere classified (principal); L40.50 Arthropathic psoriasis, unspecified; E66.01 Morbid (severe) obesity due to excess calories; F32.2 Major depressive disorder, single episode, severe without psychotic features; M70.61 Trochanteric bursitis, right hip; Z68.38 Body mass index [BMI] 38.0-38.9, adult; R32 Unspecified urinary incontinence; E78.9 Disorder of lipoprotein metabolism, unspecified; J45.40 Moderate persistent asthma, uncomplicated; G47.9 Sleep disorder, unspecified; K21.9 Gastro-esophageal reflux disease without esophagitis; G47.61 Periodic limb movement disorder

== ENCOUNTER → 2024-10-18 12:01 | Outpatient (BNVA) | payer MEDICARE, MEDICAID, SELFPAY | PROVIDERS: PCP Internal Medicine; Visit Provider Internal Medicine | DX: M70.61 Trochanteric bursitis, right hip (principal); R32 Unspecified urinary incontinence; E78.9 Disorder of lipoprotein metabolism, unspecified; J45.40 Moderate persistent asthma, uncomplicated; G47.61 Periodic limb movement disorder; K21.9 Gastro-esophageal reflux disease without esophagitis; G89.4 Chronic pain syndrome; L40.50 Arthropathic psoriasis, unspecified; F32.2 Major depressive disorder, single episode, severe without psychotic features; E66.01 Morbid (severe) obesity due to excess calories; Z68.38 Body mass index [BMI] 38.0-38.9, adult; F41.1 Generalized anxiety disorder; M46.1 Sacroiliitis, not elsewhere classified; M15.9 Polyosteoarthritis, unspecified; Z71.3 Dietary counseling and surveillance | CPT/HCPCS: 96127; 99212 ==

== ENCOUNTER 2024-11-07 08:12 | Outpatient (REF) | payer MEDICARE, MEDICAID, SELFPAY ==
--- NOTE | ~2024-11-07 | US_ITS ---
EXAMINATION: US RETROPERITONEUM HISTORY: R39.15 - Urgency of urination TECHNIQUE: Real-time grayscale ultrasound imaging of the kidneys was performed and images were reviewed. COMPARISON: Correlation is made with an abdominal ultrasound dated 10/16/2023. FINDINGS: Right kidney: The right kidney measures 13.0 x 4.7 x 6.4 cm. Renal parenchymal echotexture and thickness are normal. There are no masses. There is no hydronephrosis or renal calculi. Left Kidney: The left kidney measures 11.0 x 5.8 x 5.8 cm. Renal parenchymal echotexture and thickness are normal. There are no masses. There is no hydronephrosis or renal calculi. The urinary bladder is unremarkable. Bilateral ureteral jets are identified. Before voiding, the urinary bladder measured 7.6 x 5.0 x 8.1 cm, for an estimated volume of 161 mL. After voiding, the urinary bladder measured 4.6 x 3.7 x 2.5 cm, for an estimated volume of 22 mL. US/US retroperitoneal comp IMPRESSION: Unremarkable renal and bladder ultrasound. Post void bladder residual of 22 mL. Electronically signed by: Andrew Woods MD 11/07/2024 08:57 AM EDT
== END 2024-11-07 08:13 | disposition home or self-care (01) ==
LOC: HO.HMGCX 08:12
PROVIDERS: PCP Internal Medicine; Visit Provider Urology
DX: M46.1 Sacroiliitis, not elsewhere classified (principal); M53.3 Sacrococcygeal disorders, not elsewhere classified; G89.29 Other chronic pain; M70.61 Trochanteric bursitis, right hip; M70.62 Trochanteric bursitis, left hip; M70.71 Other bursitis of hip, right hip; R39.15 Urgency of urination; R35.1 Nocturia; R32 Unspecified urinary incontinence
CPT/HCPCS: 76770; 99212

== ENCOUNTER → 2024-11-07 08:20 | Outpatient (BNV) | payer MEDICARE, MEDICAID, SELFPAY | PROVIDERS: PCP Internal Medicine; Visit Provider Radiology Diagnostic Radiology | DX: R39.15 Urgency of urination (principal) | CPT/HCPCS: 76770 ==

== ENCOUNTER 2024-11-07 08:56 | Outpatient (AMB) | payer MEDICARE, MEDICAID, SELFPAY ==
--- NOTE | 2024-11-07 08:57 | A.OFFVIS_ITS ---
Vital Signs 11/07/24 09:02 Height 5 ft 3 in Weight 207 lb 8 oz BMI 36.8 BP 136/66 Blood Pressure Location Rt brachial Position Sitting Pulse 100 Pulse Source Pulse Oximeter Pulse Oximetry (%) 98 Oxygen Delivery Method Room Air Intake Visit Reasons: PA Denial/Discuss Alternate Options Intake Note: Pain today 12/31 Fiscal Accountant Required: No Accompanied by: Self / Same As Patient Allergies adhesive tape [ADHESIVE TAPE] Allergy (Severe, Verified 11/07/24 09:01) SKIN TEARS pramipexole Allergy (Severe, Verified 11/07/24 09:01) Diarrhea adalimumab [From Humira] Allergy (Intermediate, Verified 11/07/24 09:01) Itching carisoprodol [From SOMA] Allergy (Intermediate, Verified 11/07/24 09:01) SWELLING, RASH cephalexin Allergy (Intermediate, Verified 11/07/24 09:01) Itching gabapentin Allergy (Intermediate, Verified 11/07/24 09:01) leg swelling sulfamethoxazole [From BACTRIM] Allergy (Intermediate, Verified 11/07/24 09:01) SWELLING,RASH trimethoprim [From BACTRIM] Allergy (Intermediate, Verified 11/07/24 09:01) SWELLING,RASH HPI Comments Details: Kaylah is 64 years old female who presents in my office after the insurance company denied her sacroiliac joint therapeutic injection the right. The patient reported to me that her pain relief was more than 80% after the procedure and it lasted for 5 months. The patient reported that her pain became better the injection improve the activities of daily living, the sleep became better and even leg numbness and weakness on the right side became better after the procedure. She is very upset because insurance company denied her procedure. We will resubmit the request to allow us to perform therapeutic right sacroiliac joint injection. [facility] Medical History History of COVID-19 Chest pain JOHN positive Chronic pain syndrome Postlaminectomy syndrome of lumbar region Postlaminectomy syndrome of cervical region Chronic GERD Periodic limb movement disorder Sleeping difficulty Sciatica, right side Asthma, moderate Constipation by delayed colonic transit Pre-diabetes DJD (degenerative joint disease) Lipid disorder Bursitis of right shoulder Right shoulder pain Spinal stenosis Back pain Fibromyalgia Degenerative disc disease Surgical History History of total right knee replacement History of lumbar fusion S/P placement of nerve stimulator History of sleeve gastrectomy History of esophagogastroduodenoscopy (EGD) H/O colonoscopy History of gastric bypass Hx of cholecystectomy H/O: hysterectomy H/O spinal fusion H/O shoulder surgery Family History Father No problems noted. Mother No problems noted. Other Mental health disorder Social History Household Members: Other Household Members Other:: son Housing: House Are you a primary rn urgent care to a significant other at home: No Do you presently have visiting nurse or other home services: No Alcohol intake: current Alcohol intake frequency: holidays/special occasions only Comment: pts baseline pain is 6/10 Patient Tobacco Use Status: Former Tobacco user Tobacco use type: Cigarette Years Smoked: 30 e-Cigarette/Vaping Use: Never Used Second Hand Smoke Exposure: No Substance Use Type: Marijuana service: No Current occupational status: disabled Current occupation: right handed Cognitive needs: No Hearing needs: No Vision needs: Yes Review of Systems Const All systems reviewed & are unremarkable except as noted in HPI and below Physical Exam Vital Signs: Last Vital Signs Pulse 100 11/07/24 09:02 BP 136/66 11/07/24 09:02 Pulse Ox 98 11/07/24 09:02 Oxygen Delivery Method Room Air 11/07/24 09:02 BMI result Body Mass Index 36.8 General: Appears afebrile. Alert and oriented. Mood and affect appropriate. Follows and participates in conversation appropriately. Respiratory effort is unlabored. No cough. Able to transition from sit to stand unassisted. Ambulates with bilaterally normal heel strike and toe off. Back/Spine/Pelvis Other: Limited lumbar ROM with flexion and extension. Facet loading test positive bilaterally. Oc?s, Pelvic compression test, , and Stinchfield tests are positive on the right, pelvic distraction test is positive on the right, r eproduce left groin and left buttock pain. Moderate left groin pain with I/E hip rotations on the left. Mild TTP at GTB bilaterally. Minimal tenderness on palpation in projection of the right ischial bursa. Cervical Spine: cervical ROM normal, Cervical spine scars present and No Cervical spine tenderness Thoracic/Lumbar Spine: thoracic and lumbar spine normal to inspection, Thoracic/lumbar spine scar(s), Lasegue's sign negative, straight leg raise negative bilaterally, pain with thoraco-lumbar ROM, paraspinal muscle tenderness, No thoracic spinal tenderness and lumbar spinal tenderness at L5 Pelvis: buttock tenderness on the left Sacroiliac joints: on the right tender, on the left tender to palpation and bilaterally tender to palpation, by compression of iliac crest, by passive hyperextension of lower ext and other (As above) Results Reviewed Results Reviewed: XR THORACIC SPINE, 3 VIEWS XR LUMBAR SPINE, 3 VIEWS 04/17/23 CLINICAL INFORMATION: Postlaminectomy syndrome COMPARISON: Lumbar spine radiograph from 05/11/2020 FINDINGS: 5 nonrib-bearing lumbar-type vertebral bodies with diminutive T12 ribs. No acute visible fracture or dislocation. Status post posterior spinal fusion of L5-S1 with bilateral transpedicular screws and interconnecting rods. Status post anterior and posterior fusion of C3-C5. Spinal hardware is grossly intact. Spinal stimulator overlying the right iliac fossa with its leads coursing cranially entering at the level of L1-L2 and terminating at T9. Multilevel degenerative changes with disc space narrowing, osteophyte formation, and facet arthropathy. Vertebral body heights and disc spaces are maintained. Posterior elements are intact. Paraspinal soft tissues are unremarkable. Visualized bowel gas is unremarkable. IMPRESSION: 1. No acute visible fracture or dislocation. 2. Status post posterior spinal fusion of L5-S1 with bilateral transpedicular screws and interconnecting rods. 3. Status post anterior and posterior fusion of C3-C5. 4. Spinal stimulator overlying the right iliac fossa with its leads coursing cranially entering at the level of L1-L2 and terminating at T9. 5. Multilevel degenerative changes. XR HIP, LEFT 04/17/23 CLINICAL INFORMATION: Pain FINDINGS: No acute visible fracture or dislocation. Degenerative arthropathy of the bilateral femoral acetabular joints with joint space narrowing and enthesopathy along the bilateral greater trochanters. Spinal stimulator overlying the right iliac fossa with its leads transmitting cranially. Lower lumbar spinal hardware redemonstrated. Joint spaces and alignment are otherwise maintained. Soft tissues are unremarkable. Pelvic phleboliths are noted. IMPRESSION: 1. No acute visible fracture or dislocation. 2. Degenerative arthropathy of the bilateral femoral acetabular joints. XR HIP, RIGHT 08/25/22 FINDINGS: Right hip joint: Joint space remains normal. No fracture or bone lesion. Small pulmonary focus of calcific or ossific density just posterior to the trochanteric region unchanged compared to prior examinations. Incidental note made of a electronic device with wire overlying the right pelvis is not seen previously. IMPRESSION: 1. No evidence of osteoarthritis of the right hip. 2. Small focus of calcific or ossific density just posterior to the trochanteric region unchanged compared to prior examinations. This could reflect calcific tendinitis or tendinosis. XR/XR sacroiliac joint min 3V 01/18/21 IMPRESSION: No significant sacroiliac joint abnormality appreciated. Status post transpedicular fusion L5-S1. Assessment & Plan Assessment & Plan (1) Sacroiliitis: Code(s): M46.1 - Sacroiliitis, not elsewhere classified Category: Medical (2) Chronic left SI joint pain: Code(s): M53.3 - Sacrococcygeal disorders, not elsewhere classified; G89.29 - Other chronic pain Category: Medical (3) Greater trochanteric bursitis of both hips: Code(s): M70.61 - Trochanteric bursitis, right hip; M70.62 - Trochanteric bursitis, left hip Category: Medical (4) Sacroiliac joint pain: Code(s): M53.3 - Sacrococcygeal disorders, not elsewhere classified Category: Medical (5) Sacroiliac joint dysfunction of right side: Code(s): M53.3 - Sacrococcygeal disorders, not elsewhere classified Category: Medical (6) Ischial bursitis of right side: Code(s): M70.71 - Other bursitis of hip, right hip Category: Medical Plan The patient is suffering from sacroiliitis which views more prominent on the right and less active on the left. Sacroiliac joint injection resulted in 80% pain relief for 5 months, improved her activities of daily living improved her sleep and improved her gait. Her insurance company needlessly denied her procedure when we requested it to perform it again. I would like to request insurance company to approve this procedure as soon as possible. Coding Level of Care Code Est Pt Level 3 (86944) Diagnoses Sacroiliitis M46.1 Chronic left SI joint pain M53.3; G89.29 Greater trochanteric bursitis of both hips M70.61; M70.62 Sacroiliac joint pain M53.3 Sacroiliac joint dysfunction of right side M53.3 Ischial bursitis of right side M70.71
[2024-11-07 09:02] VITALS: BP 136/66; PULSE 100; O2SAT 98; BMI 36.8
--- OUTSIDE RECORDS SUMMARY | 2024-11-07 09:44 | XMS_ITS | Patient Health Record ---
Author Organization [facility] Address [address] [place] [address] Care Team Providers Care Senior Treasury Analyst Name Role Phone Steven MILLIGAN, Asma Primary Care Provider Andrew Dennis [phone] Allergies Allergen (clinical drug ingredient) Drug/Non Drug Allergy documented on EMR Reaction Allergy Type Onset Date Status carisoprodol Soma Unknown Drug Allergy Acti ve sulfamethoxazole / trimethoprim Bactrim Unknown Drug Allergy Active Reason For Referral No Information Medications Medication SIG (Take, Route, Frequency, Duration) Notes Start Date End Date Status Simvastatin 40 MG Orally Ac tive Omeprazole 20 MG TAKE 1 CAPSULE BY [facility] TWICE A DAY for 90 Active [...] W/U Status Risk Notes Problem Epigastric pain (33021003) Epigastric abdominal pain (R10.13) Active confirmed Problem Irritable bowel syndrome (02756459) Irritable bowel syndrome (K58.9) Active confirmed Problem [id number] Valverde's esophagus without dysplasia (K22.70) Active confirmed Problem Early satiety (195863069) Early satiety (R68.81) Active confirmed Problem Gastroesophageal reflux disease (851530471) GERD (gastroesophage al reflux disease) (K21.9) Active confirmed Problem Vomiting (480778387) Vomiting (R11.10) Active confirmed Problem [id number] Irritable bowel syndrome with constipation (K58.1) Active [...] Date MEDICARE OF [place] [address] [place] [phone] [id number] FARHAN PETERSON Self - patient is the insured MEDICAID OF [facility] [address] [place] [address] [id number] FARHAN PETERSON Self - patient is the insured Medical (General) History Medical History History ICD Code Chronic neck and back pain from degenera tive disc disease Denies MN,DM,CVA,renal disease Asthma Fibromyalgia Distant hx of stomach [...]
== END 2024-11-07 09:42 | disposition home or self-care (01) ==
LOC: HO.PMC 08:56
PROVIDERS: PCP Internal Medicine; Visit Provider Anesthesiology
DX: M46.1 Sacroiliitis, not elsewhere classified (principal); M53.3 Sacrococcygeal disorders, not elsewhere classified; G89.29 Other chronic pain; M70.61 Trochanteric bursitis, right hip; M70.62 Trochanteric bursitis, left hip; M70.71 Other bursitis of hip, right hip
CPT/HCPCS: 99213

== ENCOUNTER 2024-11-22 08:23 | Day surgery (SDC) | payer MEDICARE, MEDICAID, SELFPAY ==
--- NOTE | 2024-11-20 10:54 | P.CONAN_ITS ---
Documented by User: Mary Hung NP 11/20/24 10:55 HPI - Anesthesia Eval Consult details Narrative: 64yo F for Bilateral Sacroiliac Joint Steroid Injection s/p same 04/2024 with TIVA PMFSH Active Problems Active Problems: All Active Problems Trochanteric bursitis, right hip (Acute) Fecal urgency (Acute) Urinary urgency (Acute) Nocturia more than twice per night (Acute) Osteoarthritis involving multiple joints on both sides of body (Acute) Urine incontinence (Acute) Hx of cholecystectomy (Acute) Ischial bursitis of right side (Acute) Chronic left SI joint pain (Acute) Sacroiliitis (Acute) B12 deficiency (Acute) Vitamin D deficiency (Acute) Osteoarthritis of glenohumeral joint (Acute) Atherosclerosis (Acute) Right upper quadrant abdominal pain (Acute) Spinal cord stimulator dysfunction (Acute) Sacroiliac joint dysfunction of right side (Acute) Asthma, mild persistent (Acute) Greater trochanteric bursitis of both hips (Acute) Sacroiliac joint pain (Acute) Frequent falls (Acute) Left hip pain (Acute) Encounter for general adult medical examination with abnormal findings (Acute) Osteoarthritis of right glenohumeral joint (Acute) Posterior left knee pain (Acute) Tendinopathy of right shoulder (Acute) Effusion, right knee (Acute) Restless leg syndrome (Acute) Effusion of left knee (Acute) Osteoarthritis of left knee (Acute) Right leg numbness (Acute) Arthritis of right hip (Acute) Anemia (Acute) Status post total knee replacement, right (Acute) Pre-op evaluation (Acute) Osteoarthritis of right knee (Acute) Pain management (Acute) Internal derangement of right knee (Acute) Psoriatic arthropathy (Acute) Acute pain of right knee (Acute) Medicare annual wellness visit, subsequent (Acute) S/P insertion of spinal cord stimulator (Acute) Anxiety, generalized (Acute) Leg pain, bilateral (Acute) Hand paresthesia (Acute) Obesity due to excess calories (Acute) Impingement syndrome of right shoulder (Acute) Grieving (Acute) Skin growth (Acute) Severe major depression (Acute) Flushing (Acute) Psoriatic arthritis (Acute) Chronic GERD (Acute) Difficulty sleeping (Acute) Abdominal pain (Acute) Psoriasis (Acute) Impingement syndrome, shoulder, left (Acute) Rotator cuff tendonitis (Acute) Right shoulder pain (Acute) Bursitis of right shoulder (Acute) Lipid disorder (Acute) DJD (degenerative joint disease) (Acute) Pre-diabetes (Acute) Constipation by delayed colonic transit (Acute) Asthma, moderate (Acute) Sciatica, right side (Acute) Sleeping difficulty (Acute) Periodic limb movement disorder (Acute) Chronic GERD (Acute) Postlaminectomy syndrome of cervical region (Acute) Postlaminectomy syndrome of lumbar region (Acute) Chronic pain syndrome (Acute) JOHN positive (Acute) Chest pain (Acute) Past Medical History Medical History History of COVID-19 Chest pain JOHN positive Chronic pain syndrome Postlaminectomy syndrome of lumbar region Postlaminectomy syndrome of cervical region Chronic GERD Periodic limb movement disorder Sleeping difficulty Sciatica, right side Asthma, moderate Constipation by delayed colonic transit Pre-diabetes DJD (degenerative joint disease) Lipid disorder Bursitis of right shoulder Right shoulder pain Spinal stenosis Back pain Fibromyalgia Degenerative disc disease Family History Family History Father No problems noted. Mother No problems noted. Other Mental health disorder Family history of problems with anesthesia: No Surgical History Surgical History History of total right knee replacement History of lumbar fusion S/P placement of nerve stimulator History of sleeve gastrectomy History of esophagogastroduodenoscopy (EGD) H/O colonoscopy History of gastric bypass Hx of cholecystectomy H/O: hysterectomy H/O spinal fusion H/O shoulder surgery History of Problems with Anesthesia: No Social History Social History Household Members: Other Household Members Other:: son Housing: House Are you a primary childcare center director to a significant other at home: No Do you presently have visiting nurse or other home services: No Alcohol intake: current Alcohol intake frequency: holidays/special occasions only Comment: pts baseline pain is 6/10 Patient Tobacco Use Status: Former Tobacco user Tobacco use type: Cigarette Years Smoked: 30 e-Cigarette/Vaping Use: Never Used Second Hand Smoke Exposure: No Substance Use Type: Marijuana Substance Use Type Other:: gummy at night Are you DNR?: No Advance Directives: No Advance Directives Information Provided: Yes Patient : No : No Poor oral hygiene: No service: No Current occupational status: disabled Current occupation: right handed Cognitive needs: No Hearing needs: No Vision needs: Yes Meds Allergies Allergy/AdvReac Type Severity Reaction Status Date / Time adhesive tape [ADHESIVE TAPE] Allergy Severe SKIN TEARS Verified 11/07/24 09:01 pramipexole Allergy Severe Diarrhea Verified 11/07/24 09:01 adalimumab [From Humira] Allergy Intermediate Itching Verified 11/07/24 09:01 carisoprodol [From SOMA] Allergy Intermediate SWELLING, Verified 11/07/24 09:01 RASH cephalexin Allergy Intermediate Itching Verified 11/07/24 09:01 gabapentin Allergy Intermediate leg Verified 11/07/24 09:01 swelling sulfamethoxazole Allergy Intermediate SWELLING,RA Verified 11/07/24 09:01 [From BACTRIM] SH trimethoprim [From BACTRIM] Allergy Intermediate SWELLING,RA Verified 11/07/24 09:01 SH Assessment and Plan Assessment Anesthesia Assessment: Chart Reviewed Final Anesthetic Review Family History of Problems with Anesthesia: No History of Problems with Anesthesia: No Documented by User: Russell Menchaca MD 11/22/24 11:16 PMFSH Past Medical History Medical History History of COVID-19 Chest pain JOHN positive Chronic pain syndrome Postlaminectomy syndrome of lumbar region Postlaminectomy syndrome of cervical region Chronic GERD Periodic limb movement disorder Sleeping difficulty Sciatica, right side Asthma, moderate Constipation by delayed colonic transit Pre-diabetes DJD (degenerative joint disease) Lipid disorder Bursitis of right shoulder Right shoulder pain Spinal stenosis Back pain Fibromyalgia Degenerative disc disease Family History Family History Father No problems noted. Mother No problems noted. Other Mental health disorder Surgical History Surgical History History of total right knee replacement History of lumbar fusion S/P placement of nerve stimulator History of sleeve gastrectomy History of esophagogastroduodenoscopy (EGD) H/O colonoscopy History of gastric bypass Hx of cholecystectomy H/O: hysterectomy H/O spinal fusion H/O shoulder surgery Social History Social History Household Members: Other Household Members Other:: son Housing: House Are you a primary childcare center director to a significant other at home: No Do you presently have visiting nurse or other home services: No Alcohol intake: current Alcohol intake frequency: holidays/special occasions only Comment: pts baseline pain is 6/10 Patient Tobacco Use Status: Former Tobacco user Tobacco use type: Cigarette Years Smoked: 30 e-Cigarette/Vaping Use: Never Used Second Hand Smoke Exposure: No Substance Use Type: Marijuana Substance Use Type Other:: gummy at night Are you DNR?: No Advance Directives: No Advance Directives Information Provided: Yes Patient : No : No Poor oral hygiene: No service: No Current occupational status: disabled Current occupation: right handed Cognitive needs: No Hearing needs: No Vision needs: Yes Meds Allergies Allergy/AdvReac Type Severity Reaction Status Date / Time adhesive tape [ADHESIVE TAPE] Allergy Severe SKIN TEARS Verified 11/07/24 09:01 pramipexole Allergy Severe Diarrhea Verified 11/07/24 09:01 adalimumab [From Humira] Allergy Intermediate Itching Verified 11/07/24 09:01 carisoprodol [From SOMA] Allergy Intermediate SWELLING, Verified 11/07/24 09:01 RASH cephalexin Allergy Intermediate Itching Verified 11/07/24 09:01 gabapentin Allergy Intermediate leg Verified 11/07/24 09:01 swelling sulfamethoxazole Allergy Intermediate SWELLING,RA Verified 11/07/24 09:01 [From BACTRIM] SH trimethoprim [From BACTRIM] Allergy Intermediate SWELLING,RA Verified 11/07/24 09:01 SH Exam Airway Mallampati Class: II TM Dist: <=3cm Neck ROM: Full Loose/Missing/Broken Teeth: Yes, Upper and Lower Heart: ok Lungs: ok Assessment and Plan Assessment Anesthesia Assessment: Anesthesia Plan Discussed Final Anesthetic Review NPO: Yes ASA Class: III Final Preanesthetic Review: No Changes in Pt Med Stat, Meds/Allgs Chart Reviewed, Consent Obtained/Reviewed and Anes Risks/Benef Reviewed Patient Risk: Intermediate Procedure Risk: Intermediate Anesthetic Plan Anesthetic Plan: MAC: and Agree w/ Assess. and Plan Disposition: Standard PACU
[2024-11-22] VITALS (8 sets, daily range): BP systolic 98–108; BP diastolic 49–55; PULSE 66–89; RESP 14–16; TEMP 36.9–37.2; O2SAT 94–100; BMI 35.4
--- NOTE | ~2024-11-22 | FL_ITS ---
EXAMINATION: FL GUIDANCE ONLY HISTORY: SI JOINT INJECTION COMPARISON: None available. TECHNIQUE: Fluoroscopy time: 13.9 seconds. Cumulative Dose: 5.6300 mGy. DAP: 1.3733 mGym2 Images: 2. FINDINGS: Images demonstrate needles and contrast material in the regions of the bilateral sacroiliac joints. FL/FL guidance in OR IMPRESSION: Fluoroscopy during procedure. Please see procedure report for additional information. Electronically signed by: Andrew Woods MD 11/22/2024 12:20 PM EDT
[2024-11-22] MEDS: Lactated Ringers 1,000 ML 100 ML IVCONT (09:02)
--- NOTE | 2024-11-22 11:04 | MHC.SHP ---
Pre-Procedural Eval Section A - 24 Hr Update-Section A only Date of Service: 11/22/24 The patient is an INPATIENT: No Changes since office visit: Yes Patient answered all questions The patient has been examined within 24 hours of the surgical procedure. The History & Physical has been completed within 30 days and I have reviewed it.: No Section B - Complete if H&P > 30 days Chief Complaint: Sacrococcygeal disorders,Sacroiliitis Details of Present Illness: as above Relevant Family History (Specify if Yes): No Relevant Social History: None Present Medications: see Short Stay Collaborative assessment Medical History: No relevant PMH History of Previous Operations: No relevant previous surgery Allergies: Allergies Allergy/AdvReac Type Severity Reaction Status Date / Time adhesive tape [ADHESIVE TAPE] Allergy Severe SKIN TEARS Verified 11/07/24 09:01 pramipexole Allergy Severe Diarrhea Verified 11/07/24 09:01 adalimumab [From Humira] Allergy Intermediate Itching Verified 11/07/24 09:01 carisoprodol [From SOMA] Allergy Intermediate SWELLING, Verified 11/07/24 09:01 RASH cephalexin Allergy Intermediate Itching Verified 11/07/24 09:01 gabapentin Allergy Intermediate leg Verified 11/07/24 09:01 swelling sulfamethoxazole Allergy Intermediate SWELLING,RA Verified 11/07/24 09:01 [From BACTRIM] SH trimethoprim [From BACTRIM] Allergy Intermediate SWELLING,RA Verified 11/07/24 09:01 SH Review of Systems Sugical H&P ROS: Negative: Constitution, Cardiovascular, Respiratory, Neurological, Psychiatric, Hem-Onc, Allergic/Immunologic, Gastrointestinal, Genitourinary, Musculoskeletal, Integumentary, Endocrine and Eyes/Ears/Nose/Throat Exam Surgical H&P Exam: Normal: HEENT, Normal: Heart, Normal: Lungs, Normal: Extremities, Normal: Abdomen, Normal: Skin and Normal: Neurological Plan Diagnosis/Plan: Unchanged I have reviewed the history and physical and performed a pertinent physical examination on my patient. No changes have occurred unless specified. Time Spent With Patient Time: Total time managing care of this patient today __5__ minutes.
--- NOTE | 2024-11-22 11:16 | PC.NURSE ---
dr. bull wrote on H&P that patient is having bilateral SI joint injections today. Signed and dated. Will be rescanned into medical records per request on paperwork.
--- NOTE | 2024-11-22 11:42 | P.BOP_ITS ---
Brief Operative Note Date of Service: 11/22/24 Pre-op diagnosis: Sacroiliitis, bilateral SI joint dysfunction. Post-op diagnosis: same Procedure: Sacroiliac joint steroid injection bilateral Implants: No Surgeon: Junior Gloria MD Anesthesia: MAC Was an Cyber Systems Engineer used for this Procedure?: No Estimated blood loss (mL): 0 Condition: stable Disposition: PACU
--- NOTE | 2024-11-22 11:43 | W.PM.OPN ---
Operative Note Operative Note Date of Service: 11/22/24 Narrative: Bilateral therapeutic sacroiliac joint injection Informed consent was explained thoroughly to the patient.? All questions about benefits and risks for the procedure were answered. Patient came to the operating room and was positioned prone on the operating table with the pillow under the abdomen. ASA monitors were applied and patient was deeply sedated. The lower back and buttocks of the patient were prepped with ChloraPrep prepped and draped with sterile utility towels.? Sterilely draped C-arm was brought over the operating field and sq picture of patient's pelvis was demonstrated on the screen.? For the each joint tilting C-arm contralateral to the site of the joint the most posterior portion of the joints was superimposed with anterior silhouette of the joint.? Skin was injected in the projection of the joint slightly medial to the location of the joint with 25 gauge 1/2 inch needle using local lidocaine 2% . After that 22 gauge 3 and 1/2 inch needle was driven to the each joint in tunnel vision fashion.? When needle entered the joint capsule injection of the contrast was performed demonstrating intra-articular spread of the contrast.? After that 4 cc. of ropivacaine 0.5% mixed with Kenalog 40 mg was injected in each joint. Total dose of Kenalog was 40 mg Upon completion of the injections the needle was removed and Band-Aid was applied.? Upon completion of the injection patient was taken outside of the operating room to the recovery room where recovered uneventfully. Breast Baldwin Node Biopsy Substrate(s) used for sentinel node biopsy in the non-neoadjuvant setting: Dye and Radiotracer General Surg. - Synoptic Notes Breast Baldwin Node Biopsy Substrate(s) used for sentinel node biopsy in the non-neoadjuvant setting: Dye and Radiotracer
== END 2024-11-22 12:58 | disposition home or self-care (01) ==
PROVIDERS: PCP Internal Medicine; Visit Provider Anesthesiology
PROC: 3E0U33Z Introduction of Anti-inflammatory into Joints, Percutaneous Approach (ICD-10-PCS; CPT 27096; principal; 2024-11-22 10:50)
DX: M46.1 Sacroiliitis, not elsewhere classified (principal); M53.3 Sacrococcygeal disorders, not elsewhere classified; G89.4 Chronic pain syndrome; M48.00 Spinal stenosis, site unspecified; M79.7 Fibromyalgia; M19.90 Unspecified osteoarthritis, unspecified site; M70.71 Other bursitis of hip, right hip; M70.61 Trochanteric bursitis, right hip; M70.62 Trochanteric bursitis, left hip; R73.03 Prediabetes; J45.909 Unspecified asthma, uncomplicated; L23.1 Allergic contact dermatitis due to adhesives; Z96.82 Presence of neurostimulator; Z88.2 Allergy status to sulfonamides; Z88.8 Allergy status to other drugs, medicaments and biological substances; Z98.84 Bariatric surgery status; Z98.890 Other specified postprocedural states; Z87.891 Personal history of nicotine dependence
CPT/HCPCS: G0260; J2003; J2250; J2704; J2795; J3010; J3301; Q9967

== ENCOUNTER → 2024-11-22 08:23 | Outpatient (BNV) | payer MEDICARE, MEDICAID, SELFPAY | PROVIDERS: PCP Internal Medicine; Visit Provider Anesthesiology | DX: M53.3 Sacrococcygeal disorders, not elsewhere classified (principal); M46.1 Sacroiliitis, not elsewhere classified | CPT/HCPCS: 27096 ==

== ENCOUNTER 2024-11-28 15:05 | Outpatient (AMB) | payer MEDICARE, MEDICAID, SELFPAY ==
--- NOTE | 2024-11-28 15:11 | MHC.OFFVIS ---
Vital Signs 11/28/24 15:18 Height 5 ft 3 in Weight 200 lb BMI 35.4 Intake Visit Reasons: Newprob-Trochanteric bursitis, right hip Intake Note: Kaylah is a 64 year old female who presents today for an evaluation of right hip. Patient reports her pain has been present for years that has recently gotten worse. She was seen with pain management who ordered a pelvic scan, stating results came back normal. Hx of injections in her back. Her pain is located in her buttock area and her lateral aspect of leg that radiates down her leg. Patient describes her pain as a burning sensation. She mentions having left hip pain however not as bad as her right. She has discomfort with sitting and laying down. Finds temporary relief with Tylenol and Aspercreme temporary relief. Hx of DDD. burning sensation. No other tx. Allergies adhesive tape [ADHESIVE TAPE] Allergy (Severe, Verified 11/07/24 09:01) SKIN TEARS pramipexole Allergy (Severe, Verified 11/07/24 09:01) Diarrhea adalimumab [From Humira] Allergy (Intermediate, Verified 11/07/24 09:01) Itching carisoprodol [From SOMA] Allergy (Intermediate, Verified 11/07/24 09:01) SWELLING, RASH cephalexin Allergy (Intermediate, Verified 11/07/24 09:01) Itching gabapentin Allergy (Intermediate, Verified 11/07/24 09:01) leg swelling sulfamethoxazole [From BACTRIM] Allergy (Intermediate, Verified 11/07/24 09:01) SWELLING,RASH trimethoprim [From BACTRIM] Allergy (Intermediate, Verified 11/07/24 09:01) SWELLING,RASH Medication List - Last Reconciled 11/28/24 by Mulugeta Carrington PA-C acetaminophen 650 mg (2 x 325 mg) PO Q6H PRN 30 days albuterol sulfate 90 mcg/actuation 2 puffs inhalation Q6H PRN bisacodyl (Dulcolax (bisacodyl)) 10 mg (2 x 5 mg) PO BEDTIME cholecalciferol (vitamin D3) 1,250 mcg PO QWEEK cyclobenzaprine 5 mg PO BEDTIME PRN oxycodone 5 mg PO Q4-6H PRN 30 days simvastatin 40 mg PO BEDTIME 90 days HPI HPI Newprob-Trochanteric bursitis, right hip: Details: 64-year-old female presents to the office today for new problem in her right hip. She states for several months she has been experiencing pain along the right hip which radiates down her lateral aspect of the thigh. She is a patient at pain management and received back injections for low back pain. She complains of discomfort in the buttock region which extends into the lateral aspect of the hip. She denies groin pain. She denies numbness or tingling down the leg. Of note, she is proximally 1-1/2 years postop right total knee arthroplasty with Dr. Wills. She states she has had a few falls postoperatively which has resulted in instability of the right knee when ambulating. She states she needs to rotate her leg externally in order to provide some stability when ambulating. She has significant weakness when going downstairs which results in most her knee giving out and falling. She denies fever or chills PFSH Medical History History of COVID-19 Chest pain JOHN positive Chronic pain syndrome Postlaminectomy syndrome of lumbar region Postlaminectomy syndrome of cervical region Chronic GERD Periodic limb movement disorder Sleeping difficulty Sciatica, right side Asthma, moderate Constipation by delayed colonic transit Pre-diabetes DJD (degenerative joint disease) Lipid disorder Bursitis of right shoulder Right shoulder pain Spinal stenosis Back pain Fibromyalgia Degenerative disc disease Surgical History History of total right knee replacement History of lumbar fusion S/P placement of nerve stimulator History of sleeve gastrectomy History of esophagogastroduodenoscopy (EGD) H/O colonoscopy History of gastric bypass Hx of cholecystectomy H/O: hysterectomy H/O spinal fusion H/O shoulder surgery Family History Father No problems noted. Mother No problems noted. Other Mental health disorder Social History Household Members: Other Household Members Other:: son Housing: House Are you a primary certified social workers in health care to a significant other at home: No Do you presently have visiting nurse or other home services: No Alcohol intake: current Alcohol intake frequency: holidays/special occasions only Comment: pts baseline pain is 6/10 Patient Tobacco Use Status: Former Tobacco user Tobacco use type: Cigarette Years Smoked: 30 e-Cigarette/Vaping Use: Never Used Second Hand Smoke Exposure: No Substance Use Type: Marijuana service: No Current occupational status: disabled Current occupation: right handed Cognitive needs: No Hearing needs: No Vision needs: Yes Review of Systems Const All systems reviewed & are unremarkable except as noted in HPI and below Physical Exam Vital Signs: BMI result Body Mass Index 35.4 Extrem Other: right hip normal to inspection. No pain with ROM of the hip. Pain along the greater trochanter. No pain with hip flexion or abduction.There is tenderness along the si joint, Negative SLR. NVI. Right knee incision is well healed. She has no erythema or joint effusion. She can fully extend the knee with slight hyper extension. She has significant laxity over the medial side of the knee. She walks with antalgic gait band hyper extension of the right leg. Calf is supple and nontender neurovascularly intact. Office Procedures AMB Joint Injection/Aspiration Joint Injection/Aspiration Details: right trochanteric bursa Prep: site was prepped using aseptic technique, ethochloride spray was applied and injection warnings given Injected: 80 mg of, DepoMedrol, with 8 mL of and 1% plain lidocaine Procedure: The patient tolerated the procedure well and there was some relief with the local anesthesia Coding 16151 - Glenohumeral/Tronchanteric Bursa/Intraarticular Procedure code (CPT) selection complete Assessment & Plan Assessment & Plan (1) Status post total knee replacement, right: Code(s): Z96.651 - Presence of right artificial knee joint Category: Surgical (2) Joint laxity of right knee: Code(s): M23.8X1 - Other internal derangements of right knee Category: Medical (3) Trochanteric bursitis, right hip: Code(s): M70.61 - Trochanteric bursitis, right hip Category: Medical Plan We discussed options today for her right hip, which include steroid injection. The patient did consent to move forward with the injection, which was tolerated well.? I recommended rest, ice and elevation and OTC antiinflammatories prn for discomfort. An order for physical therapy was also placed to work on strengthening exercises. If symptoms persist over the next 6-8 weeks, they will contact our office, otherwise, prn As for her right knee, Dr. Wills was available to see the patient with me today. We had a lengthy discussion about the findings on exam with what appears to be laxity of the joint which is limiting her ability to remain active and perform daily activities. We discussed options which include physical therapy to strengthen up the surrounding muscles versus revision arthroplasty which would likely result in a liner exchange. We did discuss the risks benefits and alternatives of surgical intervention. Risks including but not limited to infection, ongoing instability, ongoing pain, stiffness and need for further revision surgery. She does express understanding. She would like to proceed with a revision arthroplasty of the right knee as this is significantly impacting her daily life. In the meantime, she will begin physical therapy for the right hip which will also help with the strengthening conditioning of her right knee. Surgical booking form has been filled out and was given to our nurse navigator who will contact the patient for surgical Planning. ESR and CRP has been ordered to rule out infection. Orders: Orders C Reactive Protein Today Z96.651 - Presence of right artificial knee joint Erythrocyte Sedimentation Rate Today Z96.651 - Presence of right artificial knee joint Coding Level of Care Code Est Pt Level 4 (38970) Complex EM visit Add On G2211 Diagnoses Status post total knee replacement, right Z96.651 Joint laxity of right knee M23.8X1 Trochanteric bursitis, right hip M70.61 CPT Codes Coding - Joint 7: 42784 - Glenohumeral/Tronchanteric Bursa/Intraarticular ([id number])
[2024-11-28 15:18] VITALS: BMI 35.4
--- OUTSIDE RECORDS SUMMARY | 2024-11-28 15:40 | XMS_ITS | Patient Health Record ---
Author Organization [facility] Address [address] [place] [address] Care Team Providers Care Personal Vehicle Advisor Name Role Phone Steven MILLIGAN, Asma Primary Care Provider Andrew Dennis [phone] Allergies Allergen (clinical drug ingredient) Drug/Non Drug Allergy documented on EMR Reaction Allergy Type Onset Date Status carisoprodol Soma Unknown Drug Allergy Acti ve sulfamethoxazole / trimethoprim Bactrim Unknown Drug Allergy Active Reason For Referral No Information Medications Medication SIG (Take, Route, Frequency, Duration) Notes Start Date End Date Status Simvastatin 40 MG Orally Ac tive Omeprazole 20 MG TAKE 1 CAPSULE BY [facility] TWICE A DAY for 90 Active Incruse [...] W/U Status Risk Notes Problem Epigastric pain (14538661) Epigastric abdominal pain (R10.13) Active confirmed Problem Irritable bowel syndrome (72856981) Irritable bowel syndrome (K58.9) Active confirmed Problem 641299797 Valverde's esophagus without dysplasia (K22.70) Active confirmed Problem Early satiety (370008573) Early satiety (R68.81) Active confirmed Problem Gastroesophageal reflux disease (120453456) GERD (gastroesophage al reflux disease) (K21.9) Active confirmed Problem Vomiting (100115016) Vomiting (R11.10) Active confirmed Problem 003033475 Irritable bowel syndrome with constipation (K58.1) Active [...] OF [place] [address] [place] [phone] [id number] FARHAN PETERSON Self - patient is the insured MEDICAID OF [facility] [address] [place] [address] [id number] FARHAN PETERSON Self - patient is the insured Medical (General) History Medical History History ICD Code Chronic neck and back pain from degenera tive disc disease Denies KS,DM,CVA,renal disease Asthma Fibromyalgia Distant hx of stomach [...]
== END 2024-11-28 16:03 | disposition home or self-care (01) ==
LOC: HO.HOS 15:05
PROVIDERS: PCP Internal Medicine; Visit Provider Physician Assistant
DX: M70.61 Trochanteric bursitis, right hip (principal)
CPT/HCPCS: 20610; 99214

== ENCOUNTER → 2024-11-28 15:05 | Outpatient (BNVA) | payer MEDICARE, MEDICAID, SELFPAY | PROVIDERS: PCP Internal Medicine; Visit Provider Physician Assistant | DX: M70.61 Trochanteric bursitis, right hip (principal); M23.8X1 Other internal derangements of right knee; Z96.651 Presence of right artificial knee joint | CPT/HCPCS: 20610; J1010; J2003 ==

== ENCOUNTER 2024-12-02 10:14 | Outpatient (REF) | payer MEDICARE, MEDICAID, SELFPAY ==
--- OUTSIDE RECORDS SUMMARY | 2024-12-02 10:45 | XMS_ITS | Patient Health Record ---
Author Organization [facility] Address [address] [place] [address] Care Team Providers Care Preboarder Name Role Phone Steven MILLIGAN, Asma Primary Care Provider Andrew Dennis [phone] Allergies Allergen (clinical drug ingredient) Drug/Non Drug Allergy documented on EMR Reaction Allergy Type Onset Date Status carisoprodol Soma Unknown Drug Allergy Acti ve sulfamethoxazole / trimethoprim Bactrim Unknown Drug Allergy Active Reason For Referral No Information Medications Medication SIG (Take, Route, Frequency, Duration) Notes Start Date End Date Status Simvastatin 40 MG Orally Ac tive Omeprazole 20 MG TAKE 1 CAPSULE BY [facility] TWICE A DAY for 90 Active [...] W/U Status Risk Notes Problem Epigastric pain (51313355) Epigastric abdominal pain (R10.13) Active confirmed Problem Irritable bowel syndrome (15781569) Irritable bowel syndrome (K58.9) Active confirmed Problem 988621356 Valverde's esophagus without dysplasia (K22.70) Active confirmed Problem Early satiety (567755850) Early satiety (R68.81) Active confirmed Problem Gastroesophageal reflux disease (428956338) GERD (gastroesophage al reflux disease) (K21.9) Active confirmed Problem Vomiting (370248471) Vomiting (R11.10) Active confirmed Problem 657339266 Irritable bowel syndrome with constipation (K58.1) Active [...] OF [place] [address] [place] [phone] [id number] FARHAN PETERSON Self - patient is the insured MEDICAID OF [facility] [address] [place] [address] [id number] FARHAN PETERSON Self - patient is the insured Medical (General) History Medical History History ICD Code Chronic neck and back pain from degenera tive disc disease Denies [place],DM,CVA,renal disease Asthma Fibromyalgia Distant hx of stomach [...]
[2024-12-02 14:08] LABS: C Reactive Protein 0.19 mg/dL (< or = 0.50)
[2024-12-02 14:26] LABS: Erythrocyte Sedimentation Rate 16 MM/HR (0-20)
== END 2024-12-02 10:15 | disposition home or self-care (01) ==
LOC: HO.HMGCLDS 10:14
PROVIDERS: PCP Internal Medicine; Visit Provider Physician Assistant
DX: Z96.651 Presence of right artificial knee joint (principal)
CPT/HCPCS: 36415; 85652; 86140

== ENCOUNTER 2024-12-04 11:47 | Outpatient (AMB) | payer MEDICARE, MEDICAID, SELFPAY ==
--- NOTE | 2024-12-04 12:00 | A.OFFPC_ITS ---
Vital Signs 12/04/24 12:02 Height 5 ft 3 in Weight 201 lb 6 oz BMI 35.7 BP 126/66 Blood Pressure Location Rt brachial Position Sitting Pulse 97 Pulse Source Pulse Oximeter Pulse Oximetry (%) 101 H Oxygen Delivery Method Room Air Intake Visit Reasons: Follow up Allergies adhesive tape [ADHESIVE TAPE] Allergy (Severe, Verified 12/04/24 12:03) SKIN TEARS pramipexole Allergy (Severe, Verified 12/04/24 12:03) Diarrhea adalimumab [From Humira] Allergy (Intermediate, Verified 12/04/24 12:03) Itching carisoprodol [From SOMA] Allergy (Intermediate, Verified 12/04/24 12:03) SWELLING, RASH cephalexin Allergy (Intermediate, Verified 12/04/24 12:03) Itching gabapentin Allergy (Intermediate, Verified 12/04/24 12:03) leg swelling sulfamethoxazole [From BACTRIM] Allergy (Intermediate, Verified 12/04/24 12:03) SWELLING,RASH trimethoprim [From BACTRIM] Allergy (Intermediate, Verified 12/04/24 12:03) SWELLING,RASH Medication List - Last Reconciled 12/04/24 by Amaya Harris MD acetaminophen 650 mg (2 x 325 mg) PO Q6H PRN 30 days albuterol sulfate 90 mcg/actuation 2 puffs inhalation Q6H PRN bisacodyl (Dulcolax (bisacodyl)) 10 mg (2 x 5 mg) PO BEDTIME cholecalciferol (vitamin D3) 1,250 mcg PO QWEEK cyclobenzaprine 5 mg PO BEDTIME PRN oxycodone 5 mg PO Q4-6H PRN 30 days simvastatin 40 mg PO BEDTIME 90 days Tobacco use date assessed: 12/04/24 Fall risk assessment: No Falls in past year Last assessed Fall Risk: 12/04/24 Dental Screening Dental Screen Date: 12/04/24 Did you have a dental visit in the last 12 months?: No Did you have a dental problem in the last 6 months where you did not have access to dental care?: No Was dental information given to patient?: Patient declined HPI Follow up HPI Details History - The patient is a 64-year-old female pr esenting for a three-month follow-up for pain management and medication review. - Reports ongoing pain in the lumbar reg ion treated with spinal injections; however, she states the recent injection was less effective than previous ones. The last injection occurred recently, following an injection in April. The pain persists despite these interventions. - Patient describes experiencing varying levels of pain, with good and bad days. Some days are significantly painful, affecting her ability to sit, while other days are manageable. - Additionally, the patient sought ortho pedic evaluation for hip pain, where she was diagnosed with osteoarthrosis in the right hip and received a corticosteroid injection, which did not alleviate the pain. - Past imaging studies: Recent x-rays sh ow degenerative changes in the lumbar spine and bilateral femoral acetabular joints, consistent with osteoarthrosis. The patient has a history of spinal fusion surgeries affecting the cervical and lumbar regions. - Cholesterol levels were elevated in [facility], leading to the reintroduction of lipid-lowering therapy, which the patient has been adherent to. - She has asthma, stable - lipid disorder, started simvastatin ag ain we will repeat labs before next visit Problem List - Osteoarthrosis of bilateral hips - Degenerative lumbar spondylosis - Postoperative state following posterio r spinal fusion at L5-S1 - Postoperative state following anterior -posterior spinal fusion at C3-C5 - Hypercholesterolemia - Flushing - obesity with BMI of 35.7 - need pain management oxycodone - asthma - osteoarthritis multiple joints Patient Instructions - Continue taking oxycodone as prescribe d for severe pain episodes. - Take a muscle relaxer as discussed. - Take 1,000 units of Vitamin D daily as supplementation. - Manage hypercholesterolemia with presc ribed medications; be diligent with doses. - Follow up with lab tests prior to the next appointment to monitor cholesterol levels. - For flushing episodes, try to cool juan m n with cold air or apply cooler temperatures. - Report any worsening symptoms or ruth ann rns immediately. Review of Systems - General: No fever no chills - Neurological: No headaches no dizziness - Ear nose throat: No sore throat no hearing difficulty no ear pain - Cardiovascular: No syncope, no chest pain, no palpitations - Gastrointestinal: No nausea vomiting or diarrhea - Endocrine: No polyuria polydipsia no heat intolerance - Genitourinary: No dysuria , no blood in urine Physical Exam General: No acute distress HEENT: No acute findings Neck: Supple Respiratory system: Able to talk in full sentences, no audible wheeze Cardiovascular: S1-S2 regular in rate and rhythm Gastrointestinal: No pain Extremities: No swelling both ankles 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: Alert awake oriented x3 motor sensory intact Skin: Normal turgor, occasional flushing noted PFSH Medical History History of COVID-19 Chest pain JHON positive Chronic pain syndrome Postlaminectomy syndrome of lumbar region Postlaminectomy syndrome of cervical region Chronic GERD Periodic limb movement disorder Sleeping difficulty Sciatica, right side Asthma, moderate Constipation by delayed colonic transit Pre-diabetes DJD (degenerative joint disease) Lipid disorder Bursitis of right shoulder Right shoulder pain Spinal stenosis Back pain Fibromyalgia Degenerative disc disease Surgical History History of total right knee replacement History of lumbar fusion S/P placement of nerve stimulator History of sleeve gastrectomy History of esophagogastroduodenoscopy (EGD) H/O colonoscopy History of gastric bypass Hx of cholecystectomy H/O: hysterectomy H/O spinal fusion H/O shoulder surgery Family History Father No problems noted. Mother No problems noted. Other Mental health disorder Social History Household Members: Other Household Members Other:: son Housing: House Are you a primary home care manager rn to a significant other at home: No Do you presently have visiting nurse or other home services: No Alcohol intake: current Alcohol intake frequency: holidays/special occasions only Comment: pts baseline pain is 6/10 Patient Tobacco Use Status: Former Tobacco user Tobacco use type: Cigarette Years Smoked: 30 e-Cigarette/Vaping Use: Never Used Second Hand Smoke Exposure: No Substance Use Type: Marijuana service: No Current occupational status: disabled Current occupation: right handed Cognitive needs: No Hearing needs: No Vision needs: Yes Questionnaire Thrive Questionnaire Date Thrive assessed: 12/04/24 I am a: Patient What is your living situation today?: I have a place to live, but I am worried about losing it in the future Within the past 12 months, did the food you bought not last and you didn't have the money to get more?: Sometimes True Within the past 12 months, did you worry whether your food would run out before you got money to buy more?: Never true Do you have trouble paying for medicines?: No Do you have trouble getting transportation to medical appointments?: No Do you have trouble paying your heating and electricity bill?: No Do you have trouble taking care of your child, family member or friend?: No Do you have trouble with day-to-day activities such as bathing, preparing meals, shopping, managing finances, etc.?: Yes Are you currently unemployed and looking for a job?: No Are you interested in more education?: No Please select the resources that you would like help with: None Currently or been in a relationship where the following occur: No concerns reported THRIVE Score: 2 AUDIT C Alcohol Use Questionnaire (AUDIT-C) 1. How often do you have a drink containing alcohol?: Monthly or less 2. How many drinks containing alcohol do you have on a typical day when you are drinking?: 1 or 2 3. How often do you have six or more drinks on one occasion?: Never Total Score: 1 Score Reviewed/Action Taken: Yes CATARINA-7 AMB Questionnaire CATARINA-7 Date CATARINA - 7 assessed: 10/18/24 Source: Developed by Drs. Andrew Lamb, Julia Olivas, Alfonso Silva and colleagues, with an educational elvia from [employer]. Physical exam (Primary Care) Vital Signs: Last Vital Signs Pulse 97 12/04/24 12:02 BP 126/66 12/04/24 12:02 Pulse Ox 101 H 12/04/24 12:02 Oxygen Delivery Method Room Air 12/04/24 12:02 BMI result Body Mass Index 35.7 Tobacco/Smoking Status: Tobacco use Status Tobacco use date assessed 12/04/24 12/04/24 12:05 Patient Tobacco Use Status Former Tobacco user 12/04/24 12:01 Tobacco use type Cigarette 12/04/24 12:01 e-Cigarette/Vaping Use Never Used 12/04/24 12:01 Thrive Assessment: Date of Thrive Assessment Date Thrive assessed 12/04/24 12/04/24 12:05 Currently or been in a relationship where the following occur: No concerns reported Coding Level of Care Code Est Pt Level 5 (58367) Diagnoses Lipid disorder E78.9 Moderate persistent asthma without complication J45.40 Asthma persistence: persistent Asthma complication type: uncomplicated Chronic GERD K21.9 Chronic pain syndrome G89.4 Psoriatic arthritis L40.50 Class 2 severe obesity due to excess calories with serious comorbidity and body mass index (BMI) of 38.0 to 38.9 in adult E66.01; Z68.38 Obesity classification: adult class 2 (BMI 35 - 39.9) Serious obesity comorbidity presence: with serious comorbidity Body mass index: BMI 38.0-38.9 Urinary incontinence, unspecified type R32 Urinary Incontinence type: unspecified incontinence Sacroiliitis M46.1 Osteoarthritis involving multiple joints on both sides of body M15.9 Time Spent (min) 41 Comment Reviewing chart, labs, imaging, [id number] with the patient, coordination of care Assessment & Plan Assessment & Plan (1) Lipid disorder: Code(s): E78.9 - Disorder of lipoprotein metabolism, unspecified Category: Medical (2) Asthma, moderate: Code(s): J45.909 - Unspecified asthma, uncomplicated Category: Medical Qualifiers: Asthma persistence: persistent Asthma complication type: uncomplicated Qualified Code(s): J45.40 - Moderate persistent asthma, uncomplicated (3) Chronic GERD: Code(s): K21.9 - Gastro-esophageal reflux disease without esophagitis Category: Medical (4) Chronic pain syndrome: Code(s): G89.4 - Chronic pain syndrome Category: Medical (5) Psoriatic arthritis: Code(s): L40.50 - Arthropathic psoriasis, unspecified Category: Medical (6) Obesity due to excess calories: Comment: Make healthy food choices . Eat lots of fruits, vegetables, whole grains, and low-fat dairy products. Limit the amount of meat and fried or fatty foods that you eat. Be active Walk, garden, or do something active for 30 minutes or more on most days of the week. If you smoke, stop smoking. Smoking increases the chance of heart attack or stroke, or develop cancer.If you are over weight, Lose weight, Being overweight increases the risk of many health problems. Avoid alcohol Alcohol can increase blood sugar and blood pressure. Code(s): E66.09 - Other obesity due to excess calories Category: Medical Qualifiers: Obesity classification: adult class 2 (BMI 35 - 39.9) Serious obesity comorbidity presence: with serious comorbidity Body mass index: BMI 38.0-38.9 Qualified Code(s): E66.01 - Morbid (severe) obesity due to excess calories; Z68.38 - Body mass index [BMI] 38.0-38.9, adult (7) Urine incontinence: Code(s): R32 - Unspecified urinary incontinence Category: Medical Qualifiers: Urinary Incontinence type: unspecified incontinence Qualified Code(s): R32 - Unspecified urinary incontinence (8) Sacroiliitis: Code(s): M46.1 - Sacroiliitis, not elsewhere classified Category: Medical (9) Osteoarthritis involving multiple joints on both sides of body: Code(s): M15.9 - Polyosteoarthritis, unspecified Category: Medical Plan History - The patient is a 64-year-old female presenting for a three-month follow-up for pain management and medication review. - Reports ongoing pain in the lumbar region treated with spinal injections; however, she states the recent injection was less effective than previous ones. The last injection occurred recently, following an injection in April. The pain persists despite these interventions. - Patient describes experiencing varying levels of pain, with good and bad days. Some days are significantly painful, affecting her ability to sit, while other days are manageable. - Additionally, the patient sought orthopedic evaluation for hip pain, where she was diagnosed with osteoarthrosis in the right hip and received a corticosteroid injection, which did not alleviate the pain. - Past imaging studies: Recent x-rays show degenerative changes in the lumbar spine and bilateral femoral acetabular joints, consistent with osteoarthrosis. The patient has a history of spinal fusion surgeries affecting the cervical and lumbar regions. - Cholesterol levels were elevated in September, leading to the reintroduction of lipid-lowering therapy, which the patient has been adherent to. - She has asthma, stable - lipid disorder, started simvastatin again we will repeat labs before next visit Problem List - Osteoarthrosis of bilateral hips - Degenerative lumbar spondylosis - Postoperative state following posterior spinal fusion at L5-S1 - Postoperative state following anterior-posterior spinal fusion at C3-C5 - Hypercholesterolemia - Flushing - obesity with BMI of 35.7 - need pain management oxycodone - asthma - osteoarthritis multiple joints Patient Instructions - Continue taking oxycodone as prescribed for severe pain episodes. - Take a muscle relaxer as discussed. - Take 1,000 units of Vitamin D daily as supplementation. - Manage hypercholesterolemia with prescribed medications; be diligent with doses. - Follow up with lab tests prior to the next appointment to monitor cholesterol levels. - For flushing episodes, try to cool down with cold air or apply cooler temperatures. - Report any worsening symptoms or concerns immediately. Medications: New cholecalciferol (vitamin D3) 25 mcg PO DAILY 90 days 90 caps 1RF Refilled cyclobenzaprine 5 mg PO BEDTIME PRN 30 tabs 0RF muscle spasm oxycodone Partial Fill upon patient request. 5 mg PO Q4-6H 30 days PRN 28 tabs 0RF pain Discontinued cholecalciferol (vitamin D3) Discontinued Reason: Doctor's Order 1,250 mcg PO QWEEK 13 caps 0RF
[2024-12-04 12:02] VITALS: BP 126/66; PULSE 97; O2SAT 101; BMI 35.7
--- OUTSIDE RECORDS SUMMARY | 2024-12-04 12:38 | XMS_ITS | Patient Health Record ---
Author Organization [facility] Address [address] [place] [address] Care Team Providers Care School Bus Operator Name Role Phone Steven MILLIGAN, Asma Primary Care Provider Andrew Dennis [phone] Allergies Allergen (clinical drug ingredient) Drug/Non Drug Allergy documented on EMR Reaction Allergy Type Onset Date Status carisoprodol Soma Unknown Drug Allergy Acti ve sulfamethoxazole / trimethoprim Bactrim Unknown Drug Allergy Active Reason For Referral No Information Medications Medication SIG (Take, Route, Frequency, Duration) Notes Start Date End Date Status Simvastatin 40 MG Orally Ac tive Omeprazole 20 MG TAKE 1 CAPSULE BY [facility] TWICE A DAY for 90 [...] W/U Status Risk Notes Problem Epigastric pain (11734807) Epigastric abdominal pain (R10.13) Active confirmed Problem Irritable bowel syndrome (52986208) Irritable bowel syndrome (K58.9) Active confirmed Problem 854738202 Valverde's esophagus without dysplasia (K22.70) Active confirmed Problem Early satiety (419932524) Early satiety (R68.81) Active confirmed Problem Gastroesophageal reflux disease (605638306) GERD (gastroesophage al reflux disease) (K21.9) Active confirmed Problem Vomiting (628124686) Vomiting (R11.10) Active confirmed Problem 369389588 Irritable bowel syndrome with constipation (K58.1) Active [...] OF [place] [address] [place] [phone] [id number] FARHAN PETERSON Self - patient is the insured MEDICAID OF [facility] [address] [place] [address] [id number] FARHAN PETERSON Self - patient is the insured Medical (General) History Medical History History ICD Code Chronic neck and back pain from degenera tive disc disease Denies VT,DM,CVA,renal disease Asthma Fibromyalgia Distant hx of stomach [...]
== END 2024-12-04 12:35 | disposition home or self-care (01) ==
LOC: HO.HMCC 11:48
PROVIDERS: PCP Internal Medicine; Visit Provider Internal Medicine
DX: E78.9 Disorder of lipoprotein metabolism, unspecified (principal); L40.50 Arthropathic psoriasis, unspecified; E66.01 Morbid (severe) obesity due to excess calories; Z68.38 Body mass index [BMI] 38.0-38.9, adult; J45.40 Moderate persistent asthma, uncomplicated; K21.9 Gastro-esophageal reflux disease without esophagitis; G89.4 Chronic pain syndrome; R32 Unspecified urinary incontinence; M46.1 Sacroiliitis, not elsewhere classified; M15.9 Polyosteoarthritis, unspecified

== ENCOUNTER → 2024-12-04 11:47 | Outpatient (BNVA) | payer MEDICARE, MEDICAID, SELFPAY | PROVIDERS: PCP Internal Medicine; Visit Provider Internal Medicine | DX: E78.00 Pure hypercholesterolemia, unspecified (principal); J45.40 Moderate persistent asthma, uncomplicated; K21.9 Gastro-esophageal reflux disease without esophagitis; G89.4 Chronic pain syndrome; L40.50 Arthropathic psoriasis, unspecified; E66.01 Morbid (severe) obesity due to excess calories; Z68.38 Body mass index [BMI] 38.0-38.9, adult; R32 Unspecified urinary incontinence; M46.1 Sacroiliitis, not elsewhere classified; M15.9 Polyosteoarthritis, unspecified; Z98.1 Arthrodesis status; Z79.891 Long term (current) use of opiate analgesic | CPT/HCPCS: 99212 ==

== ENCOUNTER → 2024-12-06 08:29 | Outpatient (BNVA) | payer MEDICARE, MEDICAID, SELFPAY | PROVIDERS: PCP Internal Medicine ==

== ENCOUNTER → 2024-12-09 10:52 | Outpatient (BNVA) | payer MEDICARE, MEDICAID, SELFPAY | PROVIDERS: PCP Internal Medicine | DX: Z01.818 Encounter for other preprocedural examination (principal) ==

== ENCOUNTER 2024-12-10 07:43 | Outpatient (REF) | payer MEDICARE, MEDICAID, SELFPAY ==
[2024-12-10 10:19] LABS: MANUAL DIFF FLAG NO
[2024-12-10 10:22] LABS: Basophils Absolute Auto 0.1 X10*3/uL (0.0-0.2); Basophils Percent Auto 0.6 % (0-2); Eosinophils Absolute Auto 0.1 X10*3/uL (0.0-0.4); Hematocrit 40.6 % (37.0-47.0); Imm Gran Abs Auto 0.03 X10*3/uL (0.00-0.03); Imm Gran Pct Auto 0.3 % (0.0-0.4); Lymphocytes Absolute Auto 2.5 X10*3/uL (1.2-4.9); Mean Corpuscular Volume 87.3 fL (80.0-98.0); Monocytes Absolute Auto 0.7 X10*3/uL (0.1-1.2); Monocytes Percent Auto 7.6 % (2-11); Neutrophils Absolute Auto 5.6 x10*3/uL (2.0-8.3); Neutrophils Percent Auto 62.5 % (45-73); Platelet Count 303 X10*3/uL (160-400); Red Blood Count 4.65 X10*6/uL (4.20-5.50)
[2024-12-10 10:28] LABS: INTERNATIONAL NORM RATIO 0.9 (0.9-1.1); Prothrombin Time 10.7 SEC (10.9-12.4)
[2024-12-10 10:35] LABS: Alanine Aminotransferase 12 U/L (0-31); Anion Gap 14 (12-20); Aspartate Amino Transferase 15 U/L (5-31); Bilirubin Total 0.5 mg/dL (0.0-1.0); Blood Urea Nitrogen 16 mg/dL (9-16); Calcium 9.2 mg/dL (8.4-10.2); Carbon Dioxide 28 mmol/L (22-29); Chloride 105 mmol/L (96-108); Estimated Glomerular Filt Rate > 60; Glucose Random 101 mg/dL (60-115); Potassium 4.6 mmol/L (3.3-5.1); Sodium 142 mmol/L (135-145); Total Protein 6.8 g/dL (6.5-8.0)
[2024-12-10 11:10] LABS: Alkaline Phosphatase 62 U/L (39-117)
== END 2024-12-10 07:44 | disposition home or self-care (01) ==
LOC: HO.HMGCLDS 07:43
PROVIDERS: PCP Internal Medicine; Visit Provider Internal Medicine
DX: Z01.818 Encounter for other preprocedural examination (principal); M23.8X1 Other internal derangements of right knee
CPT/HCPCS: 36415; 80053; 85025; 85610

== ENCOUNTER → 2024-12-11 11:18 | Outpatient (BNV) | payer MEDICARE, MEDICAID, SELFPAY | PROVIDERS: Admitting Provider Orthopaedic Surgery; PCP Internal Medicine; Visit Provider Internal Medicine Cardiovascular Disease | DX: Z01.818 Encounter for other preprocedural examination (principal) | CPT/HCPCS: 93010 ==

== ENCOUNTER 2024-12-11 14:45 | Outpatient (AMB) | payer MEDICARE, MEDICAID, SELFPAY ==
--- NOTE | 2024-12-11 14:49 | A.OFFPC_ITS ---
Vital Signs 12/11/24 14:50 Height 5 ft 3 in Weight 202 lb BMI 35.8 BP 120/64 Blood Pressure Location Lt brachial Position Sitting Pulse 85 Pulse Source Pulse Oximeter Pulse Oximetry (%) 96 Oxygen Delivery Method Room Air Intake Visit Reasons: RT TKA revision Allergies adhesive tape [ADHESIVE TAPE] Allergy (Severe, Verified 12/11/24 14:50) SKIN TEARS pramipexole Allergy (Severe, Verified 12/11/24 14:50) Diarrhea adalimumab [From Humira] Allergy (Intermediate, Verified 12/11/24 14:50) Itching carisoprodol [From SOMA] Allergy (Intermediate, Verified 12/11/24 14:50) SWELLING, RASH cephalexin Allergy (Intermediate, Verified 12/11/24 14:50) Itching gabapentin Allergy (Intermediate, Verified 12/11/24 14:50) leg swelling sulfamethoxazole [From BACTRIM] Allergy (Intermediate, Verified 12/11/24 14:50) SWELLING,RASH trimethoprim [From BACTRIM] Allergy (Intermediate, Verified 12/11/24 14:50) SWELLING,RASH Medication List - Last Reconciled 12/11/24 by Amaya Harris MD acetaminophen 650 mg (2 x 325 mg) PO Q6H PRN 30 days albuterol sulfate 90 mcg/actuation 2 puffs inhalation Q6H PRN cholecalciferol (vitamin D3) 25 mcg PO DAILY 90 days cyclobenzaprine 5 mg PO BEDTIME PRN oxycodone 5 mg PO Q4-6H PRN 30 days simvastatin 40 mg PO BEDTIME 90 days Tobacco use date assessed: 12/11/24 Fall risk assessment: No Falls in past year Last assessed Fall Risk: 12/11/24 Dental Screening Dental Screen Date: 12/11/24 Did you have a dental visit in the last 12 months?: No Did you have a dental problem in the last 6 months where you did not have access to dental care?: No Was dental information given to patient?: Patient has dentist HPI RT TKA revision HPI Details Chief Complaint Preop clearance and High stress levels due to family and financial issues, and anxiety about upcoming surgery. - The patient is a 64-year-old female pr esenting with significant stress related to familial and financial difficulties. Recently, she has been losing her house due to issues with the [employer] following her 's . - Her son, [id number], and their ch ild were living with her; however, they are moving out by the end of the month because of conflicts. This has exacerbated the patient's stress and worry. - The patient is experiencing anxiety re lated to the upcoming orthopedic surgery scheduled for January 08. She has a history of dealing with loss, as her a few years ago. - She feels isolated due to her family d ynamics and is concerned about managing post-surgery care independently. - There is a potential for depression as the patient reports high stress levels and a significant decrease in appetite over the past week, along with disturbed sleep. - There is no report of sore throat or i nfections as per her preoperative assessment, and recent lab tests show no anomalies. Problem List - Stress related to familial and financi al issues - Anxiety regarding upcoming surgery - Potential depression due to psychosoci al stressors - Anxiety regarding upcoming surgery - right TKA surgery coming up, middle december, orthopedic [facility] Plan During the visit, I discussed with the patient the importance of addressing her mental health issues due to the significant stress from familial disputes and the anxiety related to her upcoming surgery. I emphasized starting a suitable antianxiety and antidepressant medication to help manage her mental health symptoms, prescribing a medication to be taken once daily. The benefits of these medications include potential mood stabilization, reduction in anxiety, and improvement in sleep. The patient was counseled on the possible side effects, such as nausea or drowsiness. Additionally, it was agreed that Speedy vieyra behavior health coordinator would assist the patient in setting up appointments with a new therapist since she had lost contact with her previous one. This would provide professional support and help her to better cope with these stressors. I reassured the patient regarding her preoperative status, with normal EKG and lab results, indicating her preparedness for surgery. Encouragement was provided on the benefits of postoperative independence once her stress is managed and possible improvements in quality of life. Medical Decision Making My assessment of the patient's condition identified that her primary concerns involve significant psycho-social stress and anxiety related to her impending surgery. Given the nature of her complaints, it appears the patient could benefit significantly from immediate mental health support. The severity of her symptoms indicates a potential major depressive disorder or an adjustment disorder with depressed mood, driven by recent familial and financial stressors. I recommended starting an antidepressant to help address her mood symptoms, given the potential benefits in alleviating depression and anxiety symptoms before her surgery. In advising psychiatric intervention, the long-term aim is to stabilize her mental health Labs reviewed, CBC is stable, renal function liver function stable Patient is stable for orthopedic surgery in December 2024 [facility] Medical History Arthritis History of headache Anxiety Depression Elevated cholesterol History of COVID-19 Chest pain JOHN positive Chronic pain syndrome Postlaminectomy syndrome of lumbar region Postlaminectomy syndrome of cervical region Chronic GERD Periodic limb movement disorder Sleeping difficulty Sciatica, right side Asthma, moderate Constipation by delayed colonic transit Pre-diabetes DJD (degenerative joint disease) Lipid disorder Bursitis of right shoulder Right shoulder pain Spinal stenosis Back pain Fibromyalgia Degenerative disc disease Surgical History History of total right knee replacement History of lumbar fusion S/P placement of nerve stimulator History of sleeve gastrectomy History of esophagogastroduodenoscopy (EGD) H/O colonoscopy History of gastric bypass Hx of cholecystectomy H/O: hysterectomy H/O spinal fusion H/O shoulder surgery Family History Father No problems noted. Mother No problems noted. Other Mental health disorder Social History Household Members: Other Household Members Other:: son Housing: House Are you a primary senior care manager to a significant other at home: No Do you presently have visiting nurse or other home services: No Alcohol intake: current Alcohol intake frequency: does not drink Comment: pts baseline pain is 6/10 Patient Tobacco Use Status: Former Tobacco user Tobacco use type: Cigarette Years Smoked: 30 e-Cigarette/Vaping Use: Never Used Second Hand Smoke Exposure: No Substance Use Type: Marijuana service: No Current occupational status: disabled Current occupation: right handed Cognitive needs: No Hearing needs: No Vision needs: Yes Questionnaire Thrive Questionnaire Date Thrive assessed: 12/11/24 I am a: Patient What is your living situation today?: I have a place to live, but I am worried about losing it in the future Within the past 12 months, did the food you bought not last and you didn't have the money to get more?: Sometimes True Within the past 12 months, did you worry whether your food would run out before you got money to buy more?: Never true Do you have trouble paying for medicines?: No Do you have trouble getting transportation to medical appointments?: No Do you have trouble paying your heating and electricity bill?: No Do you have trouble taking care of your child, family member or friend?: No Do you have trouble with day-to-day activities such as bathing, preparing meals, shopping, managing finances, etc.?: Yes Are you currently unemployed and looking for a job?: No Are you interested in more education?: No Please select the resources that you would like help with: None Currently or been in a relationship where the following occur: No concerns reported THRIVE Score: 2 AUDIT C Alcohol Use Questionnaire (AUDIT-C) 1. How often do you have a drink containing alcohol?: Monthly or less 2. How many drinks containing alcohol do you have on a typical day when you are drinking?: 1 or 2 3. How often do you have six or more drinks on one occasion?: Never Total Score: 1 Score Reviewed/Action Taken: Yes CATARINA-7 AMB Questionnaire CATARINA-7 Date CATARINA - 7 assessed: 10/18/24 Source: Developed by Drs. Andrew Lamb, Julia Olivas, Alfonso Silva and colleagues, with an educational elvia from [employer]. Review of Systems Const Denies chills and Denies fever(s) ENT Denies epistaxis and Denies nasal discharge Card Denies chest pain Resp Denies chest congestion, Denies cough and Denies hemoptysis GI Denies diarrhea and Denies nausea Skin/Breast Denies rash Neuro Reports no additional complaints Psych Reports no additional complaints Endo Reports no additional complaints Physical exam (Primary Care) Vital Signs: Last Vital Signs Pulse 85 12/11/24 14:50 BP 120/64 12/11/24 14:50 Pulse Ox 96 12/11/24 14:50 Oxygen Delivery Method Room Air 12/11/24 14:50 BMI result Body Mass Index 35.8 Tobacco/Smoking Status: Tobacco use Status Tobacco use date assessed 12/11/24 12/11/24 14:51 Patient Tobacco Use Status Former Tobacco user 12/11/24 14:51 Tobacco use type Cigarette 12/11/24 14:51 e-Cigarette/Vaping Use Never Used 12/11/24 14:51 Thrive Assessment: Date of Thrive Assessment Date Thrive assessed 12/11/24 12/11/24 14:51 Currently or been in a relationship where the following occur: No concerns reported Const General: cooperative, comfortable and no acute distress Orientation/consciousness: patient oriented x3 HENMT Head: Yes normocephalic Eyes General: appearance normal, both eyes and all related structures Neck Neck: Yes supple Resp Effort & Inspection: normal respiratory effort, no cough and no stridor Cardio Rhythm: regular rhythm Heart sounds: S1 normal heart sound present and S2 normal heart sound present Skin General skin exam: turgor normal Neuro General: patient oriented x3, tone normal and moves all extremities Extrem Right lower extremity: no edema Left lower extremity: no edema Coding Level of Care Code Est Pt Level 4 (70262) Diagnoses Pre-op evaluation Z01.818 Joint laxity of right knee M23.8X1 Stress at home F43.9 Financial difficulties Z59.9 Depression, major, single episode, moderate F32.1 Assessment & Plan Assessment & Plan (1) Pre-op evaluation: Code(s): Z01.818 - Encounter for other preprocedural examination Category: Medical (2) Joint laxity of right knee: Code(s): M23.8X1 - Other internal derangements of right knee Category: Medical (3) Stress at home: Code(s): F43.9 - Reaction to severe stress, unspecified Category: Social Hx (4) Financial difficulties: Code(s): Z59.9 - Problem related to housing and economic circumstances, unspecified Category: Social Hx (5) Depression, major, single episode, moderate: Code(s): F32.1 - Major depressive disorder, single episode, moderate Category: Medical Plan Chief Complaint Preop clearance and High stress levels due to family and financial issues, and anxiety about upcoming surgery. - The patient is a 64-year-old female presenting with significant stress related to familial and financial difficulties. Recently, she has been losing her house due to issues with the deed following her 's . - Her son, [id number], and their child were living with her; however, they are moving out by the end of the month because of conflicts. This has exacerbated the patient's stress and worry. - The patient is experiencing anxiety related to the upcoming orthopedic surgery scheduled for January 08. She has a history of dealing with loss, as her a few years ago. - She feels isolated due to her family dynamics and is concerned about managing post-surgery care independently. - There is a potential for depression as the patient reports high stress levels and a significant decrease in appetite over the past week, along with disturbed sleep. - There is no report of sore throat or infections as per her preoperative assessment, and recent lab tests show no anomalies. Problem List - Stress related to familial and financial issues - Anxiety regarding upcoming surgery - Potential depression due to psychosocial stressors - Anxiety regarding upcoming surgery - right TKA surgery coming up, middle december, orthopedic [facility] Plan During the visit, I discussed with the patient the importance of addressing her mental health issues due to the significant stress from familial disputes and the anxiety related to her upcoming surgery. I emphasized starting a suitable antianxiety and antidepressant medication to help manage her mental health symptoms, prescribing a medication to be taken once daily. The benefits of these medications include potential mood stabilization, reduction in anxiety, and improvement in sleep. The patient was counseled on the possible side effects, such as nausea or drowsiness. Additionally, it was agreed that Speedy our behavior health coordinator would assist the patient in setting up appointments with a new therapist since she had lost contact with her previous one. This would provide professional support and help her to better cope with these stressors. I reassured the patient regarding her preoperative status, with normal EKG and lab results, indicating her preparedness for surgery. Encouragement was provided on the benefits of postoperative independence once her stress is managed and possible improvements in quality of life. Medical Decision Making My assessment of the patient's condition identified that her primary concerns involve significant psycho-social stress and anxiety related to her impending surgery. Given the nature of her complaints, it appears the patient could benefit significantly from immediate mental health support. The severity of her symptoms indicates a potential major depressive disorder or an adjustment disorder with depressed mood, driven by recent familial and financial stressors. I recommended starting an antidepressant to help address her mood symptoms, given the potential benefits in alleviating depression and anxiety symptoms before her surgery. In advising psychiatric intervention, the long-term aim is to stabilize her mental health Labs reviewed, CBC is stable, renal function liver function stable Patient is stable for orthopedic surgery in December 2024
[2024-12-11 14:50] VITALS: BP 120/64; PULSE 85; O2SAT 96; BMI 35.8
--- OUTSIDE RECORDS SUMMARY | 2024-12-11 14:53 | XMS_ITS | Patient Health Record ---
Author Organization [facility] Address [address] [place] [address] Care Team Providers Care Brass Finisher Name Role Phone Steven MILLIGAN, Asma Primary Care Provider Andrew Dennis [phone] Allergies Allergen (clinical drug ingredient) Drug/Non Drug Allergy documented on EMR Reaction Allergy Type Onset Date Status carisoprodol Soma Unknown Drug Allergy Acti ve sulfamethoxazole / trimethoprim Bactrim Unknown Drug Allergy Active Reason For Referral No Information Medications Medication SIG (Take, Route, Frequency, Duration) Notes Start Date End Date Status Simvastatin 40 MG Orally Ac tive Omeprazole 20 MG TAKE 1 CAPSULE BY [facility] TWICE A DAY for 90 Active Incruse [...] W/U Status Risk Notes Problem Epigastric pain (77961746) Epigastric abdominal pain (R10.13) Active confirmed Problem Irritable bowel syndrome (40350505) Irritable bowel syndrome (K58.9) Active confirmed Problem [id number] Valverde's esophagus without dysplasia (K22.70) Active confirmed Problem Early satiety (900585573) Early satiety (R68.81) Active confirmed Problem Gastroesophageal reflux disease (340697218) GERD (gastroesophage al reflux disease) (K21.9) Active confirmed Problem Vomiting (206779625) Vomiting (R11.10) Active confirmed Problem 913736804 Irritable bowel syndrome with constipation (K58.1) Active [...] Date MEDICARE OF [place] [address] [place] [phone] [id number] FARHAN PETERSON Self - patient is the insured MEDICAID OF [facility] [address] [place] [address] [id number] FARHAN PETERSON Self - patient is the insured Medical (General) History Medical History History ICD Code Chronic neck and back pain from degenera tive disc disease Denies IN,DM,CVA,renal disease Asthma Fibromyalgia Distant hx of stomach [...]
== END 2024-12-11 15:58 | disposition home or self-care (01) ==
LOC: HO.HMCC 14:46
PROVIDERS: PCP Internal Medicine; Visit Provider Internal Medicine
DX: F43.9 Reaction to severe stress, unspecified (principal); Z01.818 Encounter for other preprocedural examination; F32.1 Major depressive disorder, single episode, moderate; M23.8X1 Other internal derangements of right knee; Z59.9 Problem related to housing and economic circumstances, unspecified

== ENCOUNTER → 2024-12-11 14:45 | Outpatient (BNVA) | payer MEDICARE, MEDICAID, SELFPAY | PROVIDERS: PCP Internal Medicine; Visit Provider Internal Medicine | DX: Z01.818 Encounter for other preprocedural examination (principal); M23.8X1 Other internal derangements of right knee; F43.9 Reaction to severe stress, unspecified; F41.9 Anxiety disorder, unspecified; F32.1 Major depressive disorder, single episode, moderate; Z71.89 Other specified counseling; Z63.8 Other specified problems related to primary support group; Z59.9 Problem related to housing and economic circumstances, unspecified | CPT/HCPCS: 99212 ==

== ENCOUNTER 2024-12-26 08:42 | Outpatient (AMB) | payer MEDICARE, MEDICAID, SELFPAY ==
[2024-12-26 08:55] VITALS: BP 118/58; PULSE 71; RESP 16; O2SAT 96; BMI 34.7
--- NOTE | 2024-12-26 08:55 | A.OFFVIS_ITS ---
Vital Signs 12/26/24 08:55 Height 5 ft 3 in Weight 196 lb BMI 34.7 BP 118/58 L Blood Pressure Location Rt brachial Position Sitting Respiration 16 Pulse 71 Pulse Source Pulse Oximeter Pulse Oximetry (%) 96 Oxygen Delivery Method Room Air Intake Visit Reasons: S/p SI Injections 11/22/24 Sanding Line Operator Required: No Allergies adhesive tape [ADHESIVE TAPE] Allergy (Severe, Verified 12/26/24 08:57) SKIN TEARS pramipexole Allergy (Severe, Verified 12/26/24 08:57) Diarrhea adalimumab [From Humira] Allergy (Intermediate, Verified 12/26/24 08:57) Itching carisoprodol [From SOMA] Allergy (Intermediate, Verified 12/26/24 08:57) SWELLING, RASH cephalexin Allergy (Intermediate, Verified 12/26/24 08:57) Itching gabapentin Allergy (Intermediate, Verified 12/26/24 08:57) leg swelling sulfamethoxazole [From BACTRIM] Allergy (Intermediate, Verified 12/26/24 08:57) SWELLING,RASH trimethoprim [From BACTRIM] Allergy (Intermediate, Verified 12/26/24 08:57) SWELLING,RASH HPI Comments Details: Kaylah is 64 years old female who presents in my office after bilateral therapeutic sacroiliac joint injection. She reports pain before the procedure 9 to 10/10. She reports pain after the procedure 2/10 to 3/10. This is at least 80% of pain improvement. She reports better mobility for the past months better activities of daily living, better social interactions. She is looking forward for nice and active summer. I explained to the patient that she maybe we will have 5- 6 months of pain relief. If not and if her pain will become stronger I recommend her to come see me and we will decide what is the next step in the order to help her pain. [facility] Medical History Arthritis History of headache Anxiety Depression Elevated cholesterol History of COVID-19 Chest pain JOHN positive Chronic pain syndrome Postlaminectomy syndrome of lumbar region Postlaminectomy syndrome of cervical region Chronic GERD Periodic limb movement disorder Sleeping difficulty Sciatica, right side Asthma, moderate Constipation by delayed colonic transit Pre-diabetes DJD (degenerative joint disease) Lipid disorder Bursitis of right shoulder Right shoulder pain Spinal stenosis Back pain Fibromyalgia Degenerative disc disease Surgical History History of total right knee replacement History of lumbar fusion S/P placement of nerve stimulator History of sleeve gastrectomy History of esophagogastroduodenoscopy (EGD) H/O colonoscopy History of gastric bypass Hx of cholecystectomy H/O: hysterectomy H/O spinal fusion H/O shoulder surgery Family History Father No problems noted. Mother No problems noted. Other Mental health disorder Social History Household Members: Other Household Members Other:: son Housing: House Are you a primary child adolescent care to a significant other at home: No Do you presently have visiting nurse or other home services: No Alcohol intake: current Alcohol intake frequency: does not drink Comment: pts baseline pain is 6/10 Patient Tobacco Use Status: Former Tobacco user Tobacco use type: Cigarette Years Smoked: 30 e-Cigarette/Vaping Use: Never Used Second Hand Smoke Exposure: No Substance Use Type: Marijuana service: No Current occupational status: disabled Current occupation: right handed Cognitive needs: No Hearing needs: No Vision needs: Yes Review of Systems Const All systems reviewed & are unremarkable except as noted in HPI and below Physical Exam Vital Signs: Last Vital Signs Pulse 71 12/26/24 08:55 Resp 16 12/26/24 08:55 BP 118/58 L 12/26/24 08:55 Pulse Ox 96 12/26/24 08:55 Oxygen Delivery Method Room Air 12/26/24 08:55 BMI result Body Mass Index 34.7 General: Appears afebrile. Alert and oriented. Mood and affect appropriate. Follows and participates in conversation appropriately. Respiratory effort is unlabored. No cough. Able to transition from sit to stand unassisted. Ambulates with bilaterally normal heel strike and toe off. Back/Spine/Pelvis Other: Limited lumbar ROM with flexion and extension. Facet loading test positive bilaterally. Oc?s, Pelvic compression test, , and Stinchfield tests are positive on the right, pelvic distraction test is positive on the right, reproduce left groin and left buttock pain. Moderate left groin pain with I/E hip rotations on the left. Mild TTP at GTB bilaterally. Minimal tenderness on palpation in projection of the right ischial bursa. Cervical Spine: cervical ROM normal, Cervical spine scars present and No Cervical spine tenderness Thoracic/Lumbar Spine: thoracic and lumbar spine normal to inspection, Thoracic/lumbar spine scar(s), Lasegue's sign negative, straight leg raise negative bilaterally, pain with thoraco-lumbar ROM, paraspinal muscle tenderness, No thoracic spinal tenderness and lumbar spinal tenderness at L5 Pelvis: buttock tenderness on the left Sacroiliac joints: on the right tender, on the left tender to palpation and bilaterally tender to palpation, by compression of iliac crest, by passive hyperextension of lower ext and other (As above) Assessment & Plan Assessment & Plan (1) Sacroiliitis: Code(s): M46.1 - Sacroiliitis, not elsewhere classified Category: Medical (2) Chronic left SI joint pain: Code(s): M53.3 - Sacrococcygeal disorders, not elsewhere classified; G89.29 - Other chronic pain Category: Medical (3) Greater trochanteric bursitis of both hips: Code(s): M70.61 - Trochanteric bursitis, right hip; M70.62 - Trochanteric bursitis, left hip Category: Medical (4) Sacroiliac joint pain: Code(s): M53.3 - Sacrococcygeal disorders, not elsewhere classified Category: Medical (5) Sacroiliac joint dysfunction of right side: Code(s): M53.3 - Sacrococcygeal disorders, not elsewhere classified Category: Medical (6) Ischial bursitis of right side: Code(s): M70.71 - Other bursitis of hip, right hip Category: Medical Plan The patient is suffering from sacroiliitis which views more prominent on the right and less active on the left. Sacroiliac joint injection resulted in 80% pain relief for past 1 month. We will continue observation. She will schedule appointment with me when her pain will start to come back. Coding Level of Care Code Est Pt Level 3 (84557) Diagnoses Sacroiliitis M46.1 Chronic left SI joint pain M53.3; G89.29 Greater trochanteric bursitis of both hips M70.61; M70.62 Sacroiliac joint pain M53.3 Sacroiliac joint dysfunction of right side M53.3 Ischial bursitis of right side M70.71
--- OUTSIDE RECORDS SUMMARY | 2024-12-26 09:10 | XMS_ITS | Patient Health Record ---
Author Organization [facility] Address [address] [place] [address] Care Team Providers Care Medical Grade Shoemaker Name Role Phone Steven MILLIGAN, Asma Primary Care Provider Andrew Dennis [phone] Allergies Allergen (clinical drug ingredient) Drug/Non Drug Allergy documented on EMR Reaction Allergy Type Onset Date Status carisoprodol Soma Unknown Drug Allergy Acti ve sulfamethoxazole / trimethoprim Bactrim Unknown Drug Allergy Active Reason For Referral No Information Medications Medication SIG (Take, Route, Frequency, Duration) Notes Start Date End Date Status Simvastatin 40 MG Orally Ac tive Omeprazole 20 MG TAKE 1 CAPSULE BY [facility] TWICE A DAY for 90 Active [...] W/U Status Risk Notes Problem Epigastric pain (21185423) Epigastric abdominal pain (R10.13) Active confirmed Problem Irritable bowel syndrome (53273699) Irritable bowel syndrome (K58.9) Active confirmed Problem 483844556 Valverde's esophagus without dysplasia (K22.70) Active confirmed Problem Early satiety (592344953) Early satiety (R68.81) Active confirmed Problem Gastroesophageal reflux disease (543757418) GERD (gastroesophage al reflux disease) (K21.9) Active confirmed Problem Vomiting (593905837) Vomiting (R11.10) Active confirmed Problem 437968578 Irritable bowel syndrome with constipation (K58.1) Active [...] OF [place] [address] [place] [phone] [id number] FARHAN PETERSON Self - patient is the insured MEDICAID OF [facility] [address] [place] [address] [id number] FARHAN PETERSON Self - patient is the insured Medical (General) History Medical History History ICD Code Chronic neck and back pain from degenera tive disc disease Denies MO,DM,CVA,renal disease Asthma Fibromyalgia Distant hx of stomach [...]
== END 2024-12-26 09:08 | disposition home or self-care (01) ==
LOC: HO.PMC 08:43
PROVIDERS: PCP Internal Medicine; Visit Provider Anesthesiology
DX: M46.1 Sacroiliitis, not elsewhere classified (principal); M53.3 Sacrococcygeal disorders, not elsewhere classified; G89.29 Other chronic pain; M70.61 Trochanteric bursitis, right hip; M70.62 Trochanteric bursitis, left hip; M70.71 Other bursitis of hip, right hip
CPT/HCPCS: 99213

== ENCOUNTER → 2024-12-26 08:42 | Outpatient (BNVA) | payer MEDICARE, MEDICAID, SELFPAY | PROVIDERS: PCP Internal Medicine; Visit Provider Anesthesiology | DX: M46.1 Sacroiliitis, not elsewhere classified (principal); M53.3 Sacrococcygeal disorders, not elsewhere classified; M70.61 Trochanteric bursitis, right hip; M70.62 Trochanteric bursitis, left hip; M70.71 Other bursitis of hip, right hip; G89.29 Other chronic pain | CPT/HCPCS: 99212 ==

== ENCOUNTER 2024-12-27 08:53 | Outpatient (RCR) | payer MEDICARE, MEDICAID, SELFPAY ==
--- NOTE | 2024-12-27 11:05 | MHC.PT.EP ---
[facility] [place] Office [place] Office [place] Office [address] [phone] F: [phone] F: [phone] F: [phone] F: [phone] Physical Therapy Plan of Care Date of Evaluation: 12/27/24 Date of Surgery: Diagnosis: internal derangement of RT knee, RT TKA Prehab. Assessment: Patient is a 64 year old R handed female who presents with s/s consistent with other internal derangements of right knee. She does not work and has been experiencing reduced ability to walk and be active with episodes of giving out. Patient past medical history is complex with multiple LE surgeries and several other comorbidities. Current impairments include pain, balance, ROM, strength, activity tolerance and functional mobility. Functional limitations include decreased ability to walk, stand, transfer, be active and negotiate stairs. Patient is motivated with good rehab potential. Skilled PT will address impairments and functional limitations in order to achieve goals. Frequency and Duration: The patient will be seen 1x/week for 2 weeks Short Term Goals: I with HEP - 2 weeks Experimental Mechanic Electrical Goals: AROM 0-120 - 2 weeks Treatment Plan: Modalities to reduce pain, spasms and effusion. Manual therapy to restore motion and function. Therapeutic exercise to improve strength and flexibility. Neuromuscular re-education for posture and balance. Therapeutic activities to return to functional activities of daily living. Electronically signed by: Raffi Tamez, PT Please sign and return to therapist. Thank you for your referral.
--- NOTE | 2025-01-31 07:52 | MHC.PT.DC ---
[facility] [address] Office [place] Office [place] Office [address] [phone] F: [phone] F: [phone] F: [phone] F: [phone] Physical Therapy Discharge Report Diagnosis: internal derangement of RT knee, RT TKA Prehab. Date of Surgery: Date of Evaluation: 12/27/24 Date of Discharge: Treatments to Date: 1 Cancellations to Date: No Shows to Date: Discharge Status: Independent with HEP Patient Elected to Stop Discharge Summary: R knee pre hab HEP established. PT has expressed intended compiance. part was modified due to pt lack of tolerance to supine ex. assess response and alter as needed. surgery scheduled for 01/08. Electronically signed by: Raffi Tamez, PT Please sign and return to therapist. Thank you for your referral.
== END 2025-01-31 07:52 | disposition home or self-care (01) ==
LOC: HO.PTCHIC 08:53
PROVIDERS: PCP Internal Medicine; Visit Provider Physician Assistant
DX: M23.8X1 Other internal derangements of right knee (principal); M25.261 Flail joint, right knee; Z96.651 Presence of right artificial knee joint
CPT/HCPCS: 97110; 97163

== ENCOUNTER 2025-01-02 08:29 | Outpatient (REF) | payer MEDICARE, MEDICAID, SELFPAY ==
--- NOTE | ~2025-01-02 | XR_ITS ---
CLINICAL HISTORY: M25.569 - Pain in unspecified knee --- Additional Notes or Special Instructions: pr e op imaging AP bilateral knees standing and two views of the right knee Comparison: None Findings: Right knee: Right total knee arthroplasty without evidence of loosening or periprosthetic fracture. Minimal genu varum. Superior patellar enthesophyte. Heterotopicossification projecting along the lateral aspect of the patella on the sunrise view. Left knee: No fracture or dislocation. Moderate medial and lateral compartment osteoarthritis with minimal genu varum. IMPRESSION: Right knee: Total knee arthroplasty without loosening or periprosthetic fracture Left knee: Moderate medial and lateral compartment osteoarthritis. This document has been electronically signed by: Yevgeniy Peters DO on 01/03/2025 13:04:44
== END 2025-01-02 08:30 | disposition home or self-care (01) ==
LOC: HO.HOSX 08:29
PROVIDERS: Visit Provider Physician Assistant
DX: M23.8X1 Other internal derangements of right knee (principal); M25.561 Pain in right knee; Z01.812 Encounter for preprocedural laboratory examination
CPT/HCPCS: 73562; 99212

== ENCOUNTER 2025-01-02 09:54 | Outpatient (AMB) | payer MEDICARE, MEDICAID, SELFPAY ==
--- NOTE | 2025-01-02 10:30 | A.OFFVIS_ITS ---
Vital Signs 01/02/25 10:33 Height 5 ft 3 in Weight 196 lb BMI 34.7 Intake Visit Reasons: Pre Op - right TKA Revision 01/08/25 NE Intake Note: Kaylah is a 64 year old female who presents today for a total joint post op appointment for her right total knee arthroplasty revision on 01/08/25 NE. Patient was given a pain management form to sign. Allergies adhesive tape [ADHESIVE TAPE] Allergy (Severe, Verified 01/02/25 10:32) SKIN TEARS pramipexole Allergy (Severe, Verified 01/02/25 10:32) Diarrhea adalimumab [From Humira] Allergy (Intermediate, Verified 01/02/25 10:32) Itching carisoprodol [From SOMA] Allergy (Intermediate, Verified 01/02/25 10:32) SWELLING, RASH cephalexin Allergy (Intermediate, Verified 01/02/25 10:32) Itching gabapentin Allergy (Intermediate, Verified 01/02/25 10:32) leg swelling sulfamethoxazole [From BACTRIM] Allergy (Intermediate, Verified 01/02/25 10:32) SWELLING,RASH trimethoprim [From BACTRIM] Allergy (Intermediate, Verified 01/02/25 10:32) SWELLING,RASH HPI HPI Pre Op - right TKA Revision 01/08/25 NE: Details: Ms. Streeter is a 64-year-old female who presents to the office today for her history and physical examination pending right total knee revision tentatively scheduled for 01/08/[address] Wills. [facility] Medical History Arthritis History of headache Anxiety Depression Elevated cholesterol History of COVID-19 Chest pain JOHN positive Chronic pain syndrome Postlaminectomy syndrome of lumbar region Postlaminectomy syndrome of cervical region Chronic GERD Periodic limb movement disorder Sleeping difficulty Sciatica, right side Asthma, moderate Constipation by delayed colonic transit Pre-diabetes DJD (degenerative joint disease) Lipid disorder Bursitis of right shoulder Right shoulder pain Spinal stenosis Back pain Fibromyalgia Degenerative disc disease Surgical History History of total right knee replacement History of lumbar fusion S/P placement of nerve stimulator History of sleeve gastrectomy History of esophagogastroduodenoscopy (EGD) H/O colonoscopy History of gastric bypass Hx of cholecystectomy H/O: hysterectomy H/O spinal fusion H/O shoulder surgery Family History Father No problems noted. Mother No problems noted. Other Mental health disorder Social History Household Members: Other Household Members Other:: son Housing: House Are you a primary managed care provider to a significant other at home: No Do you presently have visiting nurse or other home services: No Alcohol intake: current Alcohol intake frequency: does not drink Comment: pts baseline pain is 6/10 Patient Tobacco Use Status: Former Tobacco user Tobacco use type: Cigarette Years Smoked: 30 e-Cigarette/Vaping Use: Never Used Second Hand Smoke Exposure: No Substance Use Type: Marijuana service: No Current occupational status: disabled Current occupation: right handed Cognitive needs: No Hearing needs: No Vision needs: Yes Review of Systems Const All systems reviewed & are unremarkable except as noted in HPI and below Physical Exam Vital Signs: BMI result Body Mass Index 34.7 Const General: cooperative, healthy appearing, comfortable, no acute distress, well developed, alert and awake Orientation/consciousness: patient oriented x3 HEENT Head: Yes normal to inspection, Yes normocephalic and Yes atraumatic Eyes General: appearance normal, both eyes and all related structures Neck Neck: Yes normal visual inspection and Yes no lymphadenopathy Resp Effort & Inspection: normal respiratory effort and able to speak in complete sentences Cardio Rate: regular rate Peripheral pulses: Peripheral pulses 2+ throughout GI Inspection: Yes normal to inspection Palpation (GI): Soft to palpation Skin General skin exam: no rashes or lesions noted Neuro General: patient oriented x3 Extrem Other: Right knee skin is intact. She can fully extend the knee with slight hyper extension. She has significant laxity over the medial side of the knee. She walks with antalgic gait band hyper extension of the right leg. Calf is supple and nontender neurovascularly intact. Psych Mental Status: mental status grossly normal Assessment & Plan Assessment & Plan (1) Joint laxity of right knee: Code(s): M23.8X1 - Other internal derangements of right knee Category: Medical Plan She can fully extend the knee with slight hyper extension. She has significant laxity over the medial side of the knee. She walks with antalgic gait band hyper extension of the right leg. Calf is supple and nontender neurovascularly intact. Of note, the patient does receive oxycodone 5 mg q.4-6 hours PRN for 30 days from her PCP Dr. Harris. We are happy to take over narcotic medication for after surgery. Once she has been weaned from orthopedic perspective she may continue receiving her normal dose oxycodone from her PCP. From her PCP clearance note Dr. Harris reports that her preoperative labs, CBC, renal function and liver function were all stable. It was reported ?patient is stable for orthopedic surgery?. Of note in her PCP clearance and does state that the patient was having concerns of depression and anxiety. Upon interview during today's visit the patient reports that she is feeling much better and is excited to move forward with revision right total knee arthroplasty. I discussed in detail the procedure and what to expect pre and post operatively. We discussed the risks, benefits and alternatives to the surgery as well as the rehabilitation course. The risks; which include, but are not limited to infection, bleeding, nerve injury, ongoing pain, swelling, and stiffness, perioperative risk of injury to bones and soft tissues, and blood clots. I?ve answered all questions and with their understanding they have consented to move forward with right total knee arthroplasty revision with Dr. Wills. ASA postoperatively for DVT prophylaxis Planning to go home as she will have her daughter and mother for help. Preoperative labs were ordered today and patient was directed to the hospital after her appointment. Preoperative x-rays were obtained while in the office today of the right knee. Orders: Orders Erythrocyte Sedimentation Rate Today Z01.812 - Encounter for preprocedural laboratory examination Type and Screen Today Z01.818 - Encounter for other preprocedural examination XR knee RT 3V Today M25.569 - Pain in unspecified knee CRP High Sensitivity Today Z01.812 - Encounter for preprocedural laboratory examination Coding Level of Care Code Global (34679) Diagnoses Joint laxity of right knee M23.8X1
[2025-01-02 10:33] VITALS: BMI 34.7
--- OUTSIDE RECORDS SUMMARY | 2025-01-02 11:08 | XMS_ITS | Patient Health Record ---
Author Organization [facility] Address [address] [place] [address] Care Team Providers Care Equipment Man Name Role Phone Steven MILLIGAN, Asma Primary Care Provider Andrew Dennis [phone] Allergies Allergen (clinical drug ingredient) Drug/Non Drug Allergy documented on EMR Reaction Allergy Type Onset Date Status carisoprodol Soma Unknown Drug Allergy Acti ve sulfamethoxazole / trimethoprim Bactrim Unknown Drug Allergy Active Reason For Referral No Information Medications Medication SIG (Take, Route, Frequency, Duration) Notes Start Date End Date Status Simvastatin 40 MG Orally Ac tive Omeprazole 20 MG TAKE 1 CAPSULE BY [facility] TWICE A DAY for 90 Active Incruse [...] W/U Status Risk Notes Problem Epigastric pain (41229482) Epigastric abdominal pain (R10.13) Active confirmed Problem Irritable bowel syndrome (00947597) Irritable bowel syndrome (K58.9) Active confirmed Problem 238708651 Valverde's esophagus without dysplasia (K22.70) Active confirmed Problem Early satiety (509778015) Early satiety (R68.81) Active confirmed Problem Gastroesophageal reflux disease (913413421) GERD (gastroesophage al reflux disease) (K21.9) Active confirmed Problem Vomiting (258727359) Vomiting (R11.10) Active confirmed Problem 634636265 Irritable bowel syndrome with constipation (K58.1) Active [...] OF [place] [address] [place] [phone] [id number] FARHAN PETERSON Self - patient is the insured MEDICAID OF [facility] [address] [place] [address] [id number] FARHAN PETERSON Self - patient is the [...]
== END 2025-01-02 11:16 | disposition home or self-care (01) ==
LOC: HO.HOS 09:55
PROVIDERS: PCP Internal Medicine; Visit Provider Physician Assistant
DX: M23.8X1 Other internal derangements of right knee (principal)
CPT/HCPCS: 99024

== ENCOUNTER → 2025-01-02 09:56 | Outpatient (BNV) | payer MEDICARE, MEDICAID, SELFPAY | PROVIDERS: Visit Provider Radiology Diagnostic Radiology | DX: M25.569 Pain in unspecified knee (principal) | CPT/HCPCS: 73562 ==

== ENCOUNTER → 2025-01-08 07:25 | Outpatient (BNV) | payer MEDICARE, MEDICAID, SELFPAY | PROVIDERS: PCP Internal Medicine; Visit Provider Radiology Diagnostic Radiology | DX: Z47.1 Aftercare following joint replacement surgery (principal); Z96.651 Presence of right artificial knee joint | CPT/HCPCS: 73560 ==

== ENCOUNTER 2025-01-08 07:37 | Day surgery (SDC) | payer MEDICARE, MEDICAID, SELFPAY ==
--- OUTSIDE RECORDS SUMMARY | 2024-12-06 06:41 | XMS_ITS | Patient Health Record ---
Author Organization [facility] Address [address] [place] [address] Care Team Providers Care Commercial Lines Account Manager Name Role Phone Steven MILLIGAN, Asma Primary Care Provider Andrew Dennis [phone] Allergies Allergen (clinical drug ingredient) Drug/Non Drug Allergy documented on EMR Reaction Allergy Type Onset Date Status carisoprodol Soma Unknown Drug Allergy Acti ve sulfamethoxazole / trimethoprim Bactrim Unknown Drug Allergy Active Reason For Referral No Information Medications Medication SIG (Take, Route, Frequency, Duration) Notes Start Date End Date Status Simvastatin 40 MG Orally Ac tive Omeprazole 20 MG TAKE 1 CAPSULE BY [facility] TWICE A DAY for 90 Active Incruse [...] W/U Status Risk Notes Problem Epigastric pain (90410483) Epigastric abdominal pain (R10.13) Active confirmed Problem Irritable bowel syndrome (20262142) Irritable bowel syndrome (K58.9) Active confirmed Problem 877396316 Valverde's esophagus without dysplasia (K22.70) Active confirmed Problem Early satiety (191978636) Early satiety (R68.81) Active confirmed Problem Gastroesophageal reflux disease (057122558) GERD (gastroesophage al reflux disease) (K21.9) Active confirmed Problem Vomiting (185946757) Vomiting (R11.10) Active confirmed Problem 334595605 Irritable bowel syndrome with constipation (K58.1) Active [...] OF [place] [address] [place] [phone] [id number] FARHAN PETERSON Self - patient is the insured MEDICAID OF [facility] [address] [place] [phone] [id number] FARHAN PETERSON Self - patient is the insured Medical (General) History Medical History History ICD Code Chronic neck and back pain from degenera tive disc disease Denies [place],DM,CVA,renal disease Asthma Fibromyalgia Distant hx of stomach [...]
--- NOTE | 2024-12-11 | ECG_ITS ---
Test Reason : preop Blood Pressure : */* mmHG Vent. Rate : 68 BPM Atrial Rate : 68 BPM P-R Int : 130 ms QRS Dur : 82 ms QT Int : 384 ms P-R-T Axes : -17 -4 32 degrees QTcB Int : 408 ms Normal sinus rhythm Normal ECG When compared with ECG of 02-Jun-2022 15:04, No significant change was found Referred By: Mary Hung Electronically Signed By: Olegario Flannery
[2024-12-11 10:23] VITALS: BP 125/58; PULSE 73; RESP 17; O2SAT 96; BMI 36.0
--- NOTE | 2024-12-11 10:55 | HO.ANESPROP2 ---
Documented by User: Mary Hung NP 01/07/25 08:35 HPI - Anesthesia Eval Consult details Narrative: 64yo F for Right Knee Total Revision, liner exchange, 01/08/25 Pt declines spinal anesthesia d/t anxiety, previous spinal surgery, previous bad experience with spinal s/p original R TKA 2021 with GA/Block Multiple theraputic pain injections under TIVA No recent illness No CP/SOB with groceries/walking store GERD: Tums prn Asthma: albuterol 1 x every couple of weeks Spinal nerve stimulator in situ - educated Spinal fusion thoracic and sacral unsure of levels PMFSH Active Problems Active Problems: All Active Problems Pre-op testing (Acute) Joint laxity of right knee (Acute) Trochanteric bursitis, right hip (Acute) Fecal urgency (Acute) Urinary urgency (Acute) Nocturia more than twice per night (Acute) Osteoarthritis involving multiple joints on both sides of body (Acute) Urine incontinence (Acute) Ischial bursitis of right side (Acute) Chronic left SI joint pain (Acute) Sacroiliitis (Acute) B12 deficiency (Acute) Vitamin D deficiency (Acute) Osteoarthritis of glenohumeral joint (Acute) Atherosclerosis (Acute) Right upper quadrant abdominal pain (Acute) Spinal cord stimulator dysfunction (Acute) Sacroiliac joint dysfunction of right side (Acute) Asthma, mild persistent (Acute) Greater trochanteric bursitis of both hips (Acute) Sacroiliac joint pain (Acute) Frequent falls (Acute) Left hip pain (Acute) Encounter for general adult medical examination with abnormal findings (Acute) Osteoarthritis of right glenohumeral joint (Acute) Posterior left knee pain (Acute) Tendinopathy of right shoulder (Acute) Effusion, right knee (Acute) Restless leg syndrome (Acute) Effusion of left knee (Acute) Osteoarthritis of left knee (Acute) Right leg numbness (Acute) Arthritis of right hip (Acute) Anemia (Acute) Status post total knee replacement, right (Acute) Pre-op evaluation (Acute) Osteoarthritis of right knee (Acute) Pain management (Acute) Internal derangement of right knee (Acute) Psoriatic arthropathy (Acute) Acute pain of right knee (Acute) Medicare annual wellness visit, subsequent (Acute) S/P insertion of spinal cord stimulator (Acute) Anxiety, generalized (Acute) Leg pain, bilateral (Acute) Hand paresthesia (Acute) Obesity due to excess calories (Acute) Impingement syndrome of right shoulder (Acute) Grieving (Acute) Skin growth (Acute) Severe major depression (Acute) Flushing (Acute) Psoriatic arthritis (Acute) Chronic GERD (Acute) Difficulty sleeping (Acute) Abdominal pain (Acute) Psoriasis (Acute) Impingement syndrome, shoulder, left (Acute) Rotator cuff tendonitis (Acute) Hx of cholecystectomy (Acute) Right shoulder pain (Acute) Bursitis of right shoulder (Acute) Lipid disorder (Acute) DJD (degenerative joint disease) (Acute) Pre-diabetes (Acute) Constipation by delayed colonic transit (Acute) Asthma, moderate (Acute) Sciatica, right side (Acute) Sleeping difficulty (Acute) Periodic limb movement disorder (Acute) Chronic GERD (Acute) Postlaminectomy syndrome of cervical region (Acute) Postlaminectomy syndrome of lumbar region (Acute) Chronic pain syndrome (Acute) JOHN positive (Acute) Chest pain (Acute) Past Medical History Medical History Arthritis History of headache Anxiety Depression Elevated cholesterol History of COVID-19 Chest pain JOHN positive Chronic pain syndrome Postlaminectomy syndrome of lumbar region Postlaminectomy syndrome of cervical region Chronic GERD Periodic limb movement disorder Sleeping difficulty Sciatica, right side Asthma, moderate Constipation by delayed colonic transit Pre-diabetes DJD (degenerative joint disease) Lipid disorder Bursitis of right shoulder Right shoulder pain Spinal stenosis Back pain Fibromyalgia Degenerative disc disease Family History Family History Father No problems noted. Mother No problems noted. Other Mental health disorder Family history of problems with anesthesia: No Surgical History Surgical History History of total right knee replacement History of lumbar fusion S/P placement of nerve stimulator History of sleeve gastrectomy History of esophagogastroduodenoscopy (EGD) H/O colonoscopy History of gastric bypass Hx of cholecystectomy H/O: hysterectomy H/O spinal fusion H/O shoulder surgery History of Problems with Anesthesia: No Social History Social History Household Members: Other Household Members Other:: son Housing: House Are you a primary long term acute care registered nurse to a significant other at home: No Do you presently have visiting nurse or other home services: No Alcohol intake: current Alcohol intake frequency: holidays/special occasions only Comment: pts baseline pain is 6/10 Patient Tobacco Use Status: Former Tobacco user Tobacco use type: Cigarette Years Smoked: 30 e-Cigarette/Vaping Use: Never Used Second Hand Smoke Exposure: No Use of substances other than those prescribed or required for medical reasons: No Substance Use Type: Marijuana Have you been hit, kicked, punched, or otherwise hurt by someone within the past year? If so, by whom?: No Are you DNR?: No Advance Directives: No Advance Directives Information Provided: No Advance Directives on File: No Patient : No : No Poor oral hygiene: Yes service: No Current occupational status: disabled Current occupation: right handed Cognitive needs: No Hearing needs: No Vision needs: Yes Meds Allergies Allergy/AdvReac Type Severity Reaction Status Date / Time adhesive tape (ADHESIVE TAPE) Allergy Severe SKIN TEARS Verified 01/08/25 07:22 pramipexole Allergy Severe Diarrhea Verified 01/08/25 07:22 adalimumab (From Humira) Allergy Intermediate Itching Verified 01/08/25 07:22 carisoprodol (From SOMA) Allergy Intermediate SWELLING, Verified 01/08/25 07:22 RASH cephalexin Allergy Intermediate Itching Verified 01/08/25 07:22 gabapentin Allergy Intermediate leg Verified 01/08/25 07:22 swelling sulfamethoxazole (From Allergy Intermediate SWELLING,RA Verified 01/08/25 07:22 BACTRIM) SH trimethoprim (From BACTRIM) Allergy Intermediate SWELLING,RA Verified 01/08/25 07:22 SH Exam Height,Weight and Vital Signs: Height 5 ft 3 in Weight 92.079 kg Last Vital Signs Pulse 73 12/11/24 10:23 Resp 17 12/11/24 10:23 BP 125/58 L 12/11/24 10:23 Pulse Ox 96 12/11/24 10:23 O2 Del Method Room Air 12/11/24 10:23 Pertinent Lab Results Pertinent Lab Results: Lab Results 12/11/24 01/02/25 01/02/25 Range/Units 10:30 11:06 11:21 ESR 14 (0-20) MM/HR C-React Prot High Sens 3.0 mg/L Nasal Screen MRSA (PCR) NEGATIVE (Negative) Nasal S. aureus Screen NEGATIVE (Negative) Nasal MRSA/S.aureus Interp SEE NOTE Blood Type A Positive Antibody Screen NEGATIVE Laboratory Tests 12/10/24 07:46 WBC 9.0 Hgb 13.0 Hct 40.6 Plt Count 303 Sodium 142 Potassium 4.6 Chloride 105 Carbon Dioxide 28 BUN 16 Creatinine 0.68 Narrative Narrative: EKG 11/2024 Vent. Rate : 68 BPM Atrial Rate : 68 BPM P-R Int : 130 ms QRS Dur : 82 ms QT Int : 384 ms P-R-T Axes : -17 -4 32 degrees QTcB Int : 408 ms Normal sinus rhythm Normal ECG When compared with ECG of 02-Jun-2022 15:04, No significant change was found Airway Mallampati Class: I TM Dist: >3cm Neck ROM: Limited (hx cspine fusion c3-c7) Loose/Missing/Broken Teeth: Yes (poor dentition.- many missing, broken. Pt denies loose) Heart: RRR Lungs: CTAB Assessment and Plan Assessment Anesthesia Assessment: Anesthesia Plan Discussed and PAT Visit Final Anesthetic Review Family History of Problems with Anesthesia: No History of Problems with Anesthesia: No Documented by User: Gail Robin MD 01/08/25 08:10 PMFSH Past Medical History Medical History Arthritis History of headache Anxiety Depression Elevated cholesterol History of COVID-19 Chest pain JOHN positive Chronic pain syndrome Postlaminectomy syndrome of lumbar region Postlaminectomy syndrome of cervical region Chronic GERD Periodic limb movement disorder Sleeping difficulty Sciatica, right side Asthma, moderate Constipation by delayed colonic transit Pre-diabetes DJD (degenerative joint disease) Lipid disorder Bursitis of right shoulder Right shoulder pain Spinal stenosis Back pain Fibromyalgia Degenerative disc disease Family History Family History Father No problems noted. Mother No problems noted. Other Mental health disorder Surgical History Surgical History History of total right knee replacement History of lumbar fusion S/P placement of nerve stimulator History of sleeve gastrectomy History of esophagogastroduodenoscopy (EGD) H/O colonoscopy History of gastric bypass Hx of cholecystectomy H/O: hysterectomy H/O spinal fusion H/O shoulder surgery Social History Social History Household Members: Other Household Members Other:: son Housing: House Are you a primary long term acute care registered nurse to a significant other at home: No Do you presently have visiting nurse or other home services: No Alcohol intake: current Alcohol intake frequency: holidays/special occasions only Comment: pts baseline pain is 6/10 Patient Tobacco Use Status: Former Tobacco user Tobacco use type: Cigarette Years Smoked: 30 e-Cigarette/Vaping Use: Never Used Second Hand Smoke Exposure: No Use of substances other than those prescribed or required for medical reasons: No Substance Use Type: Marijuana Have you been hit, kicked, punched, or otherwise hurt by someone within the past year? If so, by whom?: No Are you DNR?: No Advance Directives: No Advance Directives Information Provided: No Advance Directives on File: No Patient : No : No Poor oral hygiene: Yes service: No Current occupational status: disabled Current occupation: right handed Cognitive needs: No Hearing needs: No Vision needs: Yes Meds Allergies Allergy/AdvReac Type Severity Reaction Status Date / Time adhesive tape (ADHESIVE TAPE) Allergy Severe SKIN TEARS Verified 01/08/25 07:22 pramipexole Allergy Severe Diarrhea Verified 01/08/25 07:22 adalimumab (From Humira) Allergy Intermediate Itching Verified 01/08/25 07:22 carisoprodol (From SOMA) Allergy Intermediate SWELLING, Verified 01/08/25 07:22 RASH cephalexin Allergy Intermediate Itching Verified 01/08/25 07:22 gabapentin Allergy Intermediate leg Verified 01/08/25 07:22 swelling sulfamethoxazole (From Allergy Intermediate SWELLING,RA Verified 01/08/25 07:22 BACTRIM) SH trimethoprim (From BACTRIM) Allergy Intermediate SWELLING,RA Verified 01/08/25 07:22 SH Assessment and Plan Final Anesthetic Review NPO: Yes ASA Class: III Final Preanesthetic Review: No Changes in Pt Med Stat, Meds/Allgs Chart Reviewed, Consent Obtained/Reviewed and Anes Risks/Benef Reviewed Patient Risk: Intermediate Procedure Risk: Intermediate Anesthetic Plan Anesthetic Plan: GA, Regional Block and Agree w/ Assess. and Plan Disposition: Standard PACU
[2024-12-11 12:27] LABS: MRSA Nasal PCR NEGATIVE (Negative); SA Nasal PCR NEGATIVE (Negative)
[2025-01-02 12:22] LABS: Erythrocyte Sedimentation Rate 14 MM/HR (0-20)
[2025-01-08] VITALS (23 sets, daily range): BP systolic 112–144; BP diastolic 35–73; PULSE 68–84; RESP 10–22; TEMP 36–37; O2SAT 93–99; BMI 36.2
--- NOTE | ~2025-01-08 | XR_ITS ---
EXAMINATION: XR KNEE, RIGHT CLINICAL INFORMATION: s/p revision RTKA COMPARISON: January 02, 2025 TECHNIQUE: AP and lateral x-ray of the right knee. FINDINGS: Postoperative changes are present after revision of total knee arthroplasty. 3. Component cementless hardware is intact. There is no periprosthetic fracture line. There is no abnormal lucency at bone metal interfaces.. Anterior skin vadim are in place. There is soft tissue gas in the operative bed. The Insall-Salvati ratio measured 0.7 consistent with patella baja. XR/XR knee RT 2V IMPRESSION: Post revision of 3 compartment total knee arthroplasty with patella baja. Electronically signed by: Meño Silva MD 01/08/2025 12:44 PM EDT
--- OUTSIDE RECORDS SUMMARY | 2025-01-08 07:24 | XMS_ITS | Patient Health Record ---
Author Organization [facility] Address [address] [place] [address] Care Team Providers Care Repeat Chief Name Role Phone Steven MILLIGAN, Asma Primary Care Provider Andrew Dennis [phone] Allergies Allergen (clinical drug ingredient) Drug/Non Drug [...] 20 MG TAKE 1 CAPSULE BY [facility] TWICE A DAY for 90 Active Incruse [...] W/U Status Risk Notes Problem Epigastric pain (82548455) Epigastric abdominal pain (R10.13) Active confirmed Problem Irritable bowel syndrome (63675556) Irritable bowel syndrome (K58.9) Active confirmed Problem 707741730 Valverde's esophagus without dysplasia (K22.70) Active confirmed Problem Early satiety (535049061) Early satiety (R68.81) Active confirmed Problem Gastroesophageal reflux disease (859788324) GERD (gastroesophage al reflux disease) (K21.9) Active confirmed Problem Vomiting (709716761) Vomiting (R11.10) Active confirmed Problem 034766268 Irritable bowel syndrome with constipation (K58.1) Active [...] OF [place] [address] [place] [phone] [id number] FARHAN PETERSON Self - patient is the insured MEDICAID OF [facility] [address] [place] [address] [id number] FARHAN PETERSON Self - patient is the insured Medical (General) History Medical History History ICD Code Chronic neck and back pain from degenera tive disc disease Denies PR,DM,CVA,renal disease Asthma Fibromyalgia Distant hx of stomach [...]
--- NOTE | 2025-01-08 07:33 | PHA.MEDREC ---
Pharmacy Consult ? Medication Reconciliation Pharmacy has completed the medication reconciliation. Reviewed med rec done by nursing, patient had recent claim for escitalopram 10mg but it looks like it has not been filled previously so is probably a new start.
[2025-01-08] MEDS: Lactated Ringers 1,000 ML 100 ML IVCONT ×2 (08:04→16:13)
--- NOTE | 2025-01-08 09:34 | MHC.SHP ---
Pre-Procedural Eval Section A - 24 Hr Update-Section A only Date of Service: 01/08/25 The patient is an INPATIENT: No Changes since office visit: No Cold of Flu in the past 2 weeks, No New Medical Problems, No Changes in Medication and No Patient answered all questions The patient has been examined within 24 hours of the surgical procedure. The History & Physical has been completed within 30 days and I have reviewed it.: Yes Section B - Complete if H&P > 30 days Chief Complaint: revision RTKA Allergies: Allergies Allergy/AdvReac Type Severity Reaction Status Date / Time adhesive tape (ADHESIVE TAPE) Allergy Severe SKIN TEARS Verified 01/08/25 07:22 pramipexole Allergy Severe Diarrhea Verified 01/08/25 07:22 adalimumab (From Humira) Allergy Intermediate Itching Verified 01/08/25 07:22 carisoprodol (From SOMA) Allergy Intermediate SWELLING, Verified 01/08/25 07:22 RASH cephalexin Allergy Intermediate Itching Verified 01/08/25 07:22 gabapentin Allergy Intermediate leg Verified 01/08/25 07:22 swelling sulfamethoxazole (From Allergy Intermediate SWELLING,RA Verified 01/08/25 07:22 BACTRIM) SH trimethoprim (From BACTRIM) Allergy Intermediate SWELLING,RA Verified 01/08/25 07:22 SH Plan I have reviewed the history and physical and performed a pertinent physical examination on my patient. No changes have occurred unless specified. Time Spent With Patient Time: Total time managing care of this patient today ____ minutes.
[2025-01-08] MEDS: Clindamycin Phosphate/D5W 600 MG/50 ML PIGGYBACK 100 MG IV (10:15)
[2025-01-08 10:17] LABS: MRSA Nasal PCR NEGATIVE (Negative); SA Nasal PCR NEGATIVE (Negative)
[2025-01-08] MEDS: Acetaminophen 1,000 MG/100 ML PIGGYBACK 400 MG IV (11:00)
[2025-01-08] MEDS: HYDROmorphone HCl 1 MG/ML SYRINGE 0.25 MG IVPUSH ×8 (11:33→12:08)
[2025-01-08] MEDS: HYDROmorphone HCl 0.5 MG/0.5 ML SYRINGE IVPUSH ×2 (12:28→12:45)
[2025-01-08] MEDS: Atorvastatin Calcium 20 MG TABLET PO (16:12)
[2025-01-08] MEDS: 0.9 % Sodium Chloride Flush 3 ML SYRINGE IVFLUSH (16:13)
[2025-01-08] MEDS: Celecoxib 200 MG CAPSULE PO ×2 (16:13→20:27)
[2025-01-08] MEDS: Cholecalciferol (Vitamin D3) 25 MCG TABLET PO (16:13)
[2025-01-08] MEDS: Clindamycin HCL 300 MG CAPSULE 600 MG PO (16:13)
[2025-01-08] MEDS: HYDROmorphone HCl 0.5 MG/0.5 ML SYRINGE 0.25 MG IVPUSH ×2 (18:04→22:38)
[2025-01-08] MEDS: Cyclobenzaprine HCl 5 MG TABLET PO (20:27)
[2025-01-08] MEDS: oxyCODONE HCl ER 10 MG TAB.ER.12H PO (20:28)
--- NOTE | 2025-01-08 22:39 | P.CONHOSP_ITS ---
History of Present Illness Data of Consult Service Date: 01/08/25 Requesting physician: López Wills Primary Care Provider: Amaya Harris [facility] Reason for consult: medical mangement Patient is a 64-year-old female with a past medical history significant for HLD, anxiety, depression, chronic pain, moderate persistent asthma, fibromyalgia and GERD, s/p right TKA today, hospitalist consult placed for medical management. The patient reports that she is in no current medical complaints aside from right knee pain. She currently rates her pain an 8/10 aching. She denies any numbness or tingling. She has been able to urinate since the surgery. Sensation and motor is intact right lower extremity. She denies any chest pain, shortness of breath, nausea, vomiting, visual changes, headache or abdominal pain. Review of Systems Constitutional: Constitutional: Denies body ache(s), Denies chills, Denies fatigue, Denies fever(s) and Denies headache(s) Eyes: Eyes: Denies change in vision and Denies loss of vision ENT: Denies headache(s), Denies nasal congestion and Denies nasal discharge Cardiovascular: Cardiovascular: Denies chest pain, Denies syncope, Denies rapid heart rate, Denies leg edema, Denies lightheadedness and Denies dyspnea Respiratory: Respiratory: Denies chest congestion, Denies cough, Denies dyspnea and Denies wheezing Gastrointestinal: Gastrointestinal: Denies abdominal pain, Denies nausea and Denies vomiting Genitourinary: Genitourinary: Denies difficulty voiding and Denies dysuria Musculoskeletal: Musculoskeletal: Reports as per HPI and Reports myalgias Integumentary/Breasts: Skin/Breast: Denies rash Neurologic: Denies confusion, Denies syncope, Denies headache(s) and Denies loss of vision Psychiatric: Psychiatric: Denies confusion Endocrine: Endocrine: Denies fatigue Hematologic/Lymphatic: Hematologic/Lymphatic: Denies easy bleeding and Denies easy bruising Allergic/Immunologic: Allergic/Immunologic: Denies wheezing [facility] Medical History Arthritis History of headache Anxiety Depression Elevated cholesterol History of COVID-19 Chest pain JOHN positive Chronic pain syndrome Postlaminectomy syndrome of lumbar region Postlaminectomy syndrome of cervical region Chronic GERD Periodic limb movement disorder Sleeping difficulty Sciatica, right side Asthma, moderate Constipation by delayed colonic transit Pre-diabetes DJD (degenerative joint disease) Lipid disorder Bursitis of right shoulder Right shoulder pain Spinal stenosis Back pain Fibromyalgia Degenerative disc disease Family History Father No problems noted. Mother No problems noted. Other Mental health disorder Surgical History History of total right knee replacement History of lumbar fusion S/P placement of nerve stimulator History of sleeve gastrectomy History of esophagogastroduodenoscopy (EGD) H/O colonoscopy History of gastric bypass Hx of cholecystectomy H/O: hysterectomy H/O spinal fusion H/O shoulder surgery Social History Household Members: Other Household Members Other:: son Housing: House Are you a primary manager of care to a significant other at home: No Do you presently have visiting nurse or other home services: No Alcohol intake: current Alcohol intake frequency: holidays/special occasions only Comment: pts baseline pain is 6/10 Patient Tobacco Use Status: Former Tobacco user Tobacco use type: Cigarette Years Smoked: 30 e-Cigarette/Vaping Use: Never Used Second Hand Smoke Exposure: No Use of substances other than those prescribed or required for medical reasons: No Substance Use Type: Marijuana Have you been hit, kicked, punched, or otherwise hurt by someone within the past year? If so, by whom?: No Are you DNR?: No Advance Directives: No Advance Directives Information Provided: No Advance Directives on File: No Patient : No : No Poor oral hygiene: Yes service: No Current occupational status: disabled Current occupation: right handed Cognitive needs: No Hearing needs: No Vision needs: Yes Narrative: No smoking. Social occasional alcohol. no drug use Meds Allergies Allergy/AdvReac Type Severity Reaction Status Date / Time adhesive tape (ADHESIVE TAPE) Allergy Severe SKIN TEARS Verified 01/08/25 07:22 pramipexole Allergy Severe Diarrhea Verified 01/08/25 07:22 adalimumab (From Humira) Allergy Intermediate Itching Verified 01/08/25 07:22 carisoprodol (From SOMA) Allergy Intermediate SWELLING, Verified 01/08/25 07:22 RASH cephalexin Allergy Intermediate Itching Verified 01/08/25 07:22 gabapentin Allergy Intermediate leg Verified 01/08/25 07:22 swelling sulfamethoxazole (From Allergy Intermediate SWELLING,RA Verified 01/08/25 07:22 BACTRIM) SH trimethoprim (From BACTRIM) Allergy Intermediate SWELLING,RA Verified 01/08/25 07:22 SH Active Medications: Current Medications Acetaminophen (Acetaminophen 325 Mg Tablet) 650 mg PO Q6H PRN PRN Reason: Pain, Mild 1-3,fever,headache Aspirin (Aspirin 325 Mg Tablet) 325 mg PO BID [facility] Atorvastatin Calcium (Atorvastatin Calcium 20 Mg Tablet) 20 mg PO DAILY [facility] Last Admin: 01/08/25 16:12 Dose: 20 mg Calcium Carbonate (Calcium Carbonate 750 Mg Tab.Chew) 750 mg PO Q4H PRN PRN Reason: Heartburn Celecoxib (Celecoxib 200 Mg Capsule) 200 mg PO BID [facility] Last Admin: 01/08/25 20:27 Dose: 200 mg Clindamycin HCl (Clindamycin Hcl 300 Mg Capsule) 600 mg PO POSTOP@1600 [facility] Last Admin: 01/08/25 16:13 Dose: 600 mg Cyclobenzaprine HCl (Cyclobenzaprine Hcl 5 Mg Tablet) 5 mg PO BEDTIME PRN PRN Reason: Muscle Spasm Last Admin: 01/08/25 20:27 Dose: 5 mg Hydromorphone HCl (Hydromorphone Hcl 0.5 Mg/0.5 Ml Syringe) 0.25 mg IVPUSH Q4H PRN; Protocol PRN Reason: Pain, Severe (Pain Scale 7-10) Last Admin: 01/08/25 22:38 Dose: 0.25 mg Lactated Ringer's (Lr) 1,000 mls @ 100 mls/hr IVCONT .Q10H [facility] Last Admin: 01/08/25 16:13 Dose: 100 mls/hr Magnesium Hydroxide (Milk Of Magnesia 30 Ml Oral.Susp) 30 ml PO DAILY PRN PRN Reason: Constipation Melatonin (Melatonin 3 Mg Tablet) 6 mg PO BEDTIME PRN PRN Reason: Insomnia Naloxone HCl (Naloxone Hcl 0.4 Mg/Ml Vial) 0.04 mg IVPUSH Q5M PRN PRN Reason: Excessive sedation or RR < 8 Ondansetron HCl (Ondansetron Hcl 4 Mg/2 Ml Vial) 4 mg IVPUSH Q8H PRN PRN Reason: Nausea and Vomiting Oxycodone HCl (Oxycodone Hcl Immed Release 5 Mg Tablet) 5 mg PO Q4H PRN PRN Reason: Pain, Moderate(Pain Scale 4-6) Oxycodone HCl (Oxycodone Hcl Er 10 Mg Tab.Er.12h) 10 mg PO BID [facility] Last Admin: 01/08/25 20:28 Dose: 10 mg Sodium Chloride (0.9 % Sodium Chloride Flush 3 Ml Syringe) 3 ml IVFLUSH QSHIFT [facility] Last Admin: 01/08/25 22:31 Dose: Not Given Vitamin D (Cholecalciferol (Vitamin D3) 25 Mcg Tablet) 25 mcg PO DAILY [facility] Last Admin: 01/08/25 16:13 Dose: 25 mcg Physical Exam Vital Signs and Narrative: Vital Signs: Last Vital Signs Temp 98.2 F 01/08/25 19:28 Pulse 84 01/08/25 19:28 Resp 18 01/08/25 19:28 BP 114/58 L 01/08/25 19:28 Pulse Ox 93 01/08/25 19:28 O2 Del Method Nasal Cannula 01/08/25 19:28 O2 Flow Rate 1 01/08/25 19:28 BMI result Body Mass Index 36.2 General: AOx3, no acute distress Resp: CTA bilaterally CVS: S1, S2, RRR GI: +BS, NT, no distention Skin: Warm, dry Neuro: Cranial nerves II-XII grossly intact bilaterally. Motor grossly intact bilaterally Extremities: No LE pitting edema. sensation and motor intact bilateral LE. normal capillary refill. Psych: Appropriate affect Const: General: No confusion Orientation/consciousness: No confusion Neuro: General: No confusion Results Labs Labs: Laboratory Results - last 24 hr 01/08/25 07:15 Nasal Screen MRSA (PCR) NEGATIVE Nasal S. aureus Screen NEGATIVE Nasal MRSA/S.aureus Interp SEE NOTE Imaging Radiologist's Impressions: Impressions Knee X-Ray 01/08/25 12:20 IMPRESSION: Post revision of 3 compartment total knee arthroplasty with patella baja. Electronically signed by: Meño Silva MD 01/08/2025 12:44 PM EDT Assessment and Plan (1) Status post total right knee replacement: Status: Acute Plan Patient is a 64-year-old female with a past medical history significant for HLD, anxiety, depression, chronic pain, moderate persistent asthma, fibromyalgia and GERD, s/p right TKA today, hospitalist consult placed for medical management. s/p R TKA - POD 0 - plan per surgery HLD - continue statin anxiety - no home meds moderate persistent asthma - continue albuterol PRN GERD - TUMs PRN Thank you for allowing me to participate in the pt's care. Signing off for now. Please contact the medical team if any questions or concerns.
[2025-01-09] MEDS: Lactated Ringers 1,000 ML 100 ML IVCONT (02:53)
[2025-01-09] MEDS: HYDROmorphone HCl 0.5 MG/0.5 ML SYRINGE 0.25 MG IVPUSH ×2 (03:14→07:50)
[2025-01-09 03:39] VITALS: BP 115/58; PULSE 62; RESP 16; TEMP 36; O2SAT 97
[2025-01-09 06:02] LABS: MANUAL DIFF FLAG NO
[2025-01-09 06:06] LABS: Basophils Percent Auto 0.1 % (0-2); Hematocrit 36.8 % (37.0-47.0); Hemoglobin 11.9 g/dl (12.0-16.0); Imm Gran Abs Auto 0.07 X10*3/uL (0.00-0.03); Imm Gran Pct Auto 0.5 % (0.0-0.4); Lymphocytes Absolute Auto 1.4 X10*3/uL (1.2-4.9); Lymphocytes Percent Auto 10.6 % (20-40); Mean Corpuscular HGB Conc 32.3 g/dl (31.0-35.0); Mean Corpuscular Hemoglobin 28.5 pg (27.0-33.0); Mean Corpuscular Volume 88.2 fL (80.0-98.0); Mean Platelet Volume 10.6 fL (9.4-12.3); Monocytes Absolute Auto 1.3 X10*3/uL (0.1-1.2); Monocytes Percent Auto 9.7 % (2-11); Neutrophils Absolute Auto 10.6 x10*3/uL (2.0-8.3); Neutrophils Percent Auto 79.1 % (45-73); Platelet Count 253 X10*3/uL (160-400); Red Blood Count 4.17 X10*6/uL (4.20-5.50); Red Cell Distribution Width 14.4 % (11.0-16.0); White Blood Count 13.5 X10*3/uL (4.8-10.8)
[2025-01-09 06:27] LABS: Anion Gap 13 (12-20); Blood Urea Nitrogen 9 mg/dL (9-16); Calcium 8.9 mg/dL (8.4-10.2); Carbon Dioxide 27 mmol/L (22-29); Chloride 105 mmol/L (96-108); Creatinine Clr Calc Pharmacy 104.6; Estimated Glomerular Filt Rate > 60; Glucose Fasting 136 mg/dL (60-99); Potassium 4.5 mmol/L (3.3-5.1); Sodium 140 mmol/L (135-145)
[2025-01-09 07:31] VITALS: BP 120/60; PULSE 61; RESP 16; TEMP 36.4; O2SAT 96
--- NOTE | 2025-01-09 08:41 | P.DS_ITS ---
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 During their stay, their vitals were stable, afebrile at 97.5. Labs were unremarkable, H/H 11.9/36.8 . POD 1 s was started on ASA 325mg tabs po bid for DVT ppx, they also received Physical Therapy services twice a day. Physical therapy should include gait training, ROM to tolerance and quad strength. He is WBAT. Prior to discharge, dressing is clean dry and intact. The Aquacel dressing should remain intact and dry at all times. Any concerns with the dressing, please contact orthopedic office. No showering. The plan is to be discharged home with vna Time Attestation Discharge Coordination Time (in mins): 30 Quality: Safe Use of Opioids Does Pt have an Active Cancer Diagnosis on the Problem List?: No Quality: Stroke Does the patient have a stroke diagnosis?: No Physical Exam Vital Signs: Vital Signs: Last Vital Signs Temp 97.5 F 01/09/25 07:31 Pulse 61 01/09/25 07:31 Resp 16 01/09/25 07:31 BP 120/60 01/09/25 07:31 Pulse Ox 96 01/09/25 07:31 O2 Del Method Room Air 01/09/25 07:31 O2 Flow Rate 1 01/08/25 23:45 BMI result Body Mass Index 36.2 DS: Data Data Completed and Pending Labs on day of discharge: Laboratory Results - last 24 hr 01/08/25 01/09/25 07:15 05:39 WBC 13.5 H RBC 4.17 L Hgb 11.9 L Hct 36.8 L MCV 88.2 MCH 28.5 MCHC 32.3 RDW 14.4 Plt Count 253 MPV 10.6 Immature Gran % (Auto) 0.5 H Neut % (Auto) 79.1 H Lymph % (Auto) 10.6 L [place] % (Auto) 9.7 Eos % (Auto) 0.0 Baso % (Auto) 0.1 Lymph # (Auto) 1.4 [place] # (Auto) 1.3 H Eos # (Auto) 0.0 Baso # (Auto) 0.0 Abs Immat Gran (auto) 0.07 H Absolute Neuts (auto) 10.6 H Absolute Nucleated RBC 0.000 Nucleated RBC % (auto) 0.0 Sodium 140 Potassium 4.5 Chloride 105 Carbon Dioxide 27 Anion Gap 13 BUN 9 Creatinine 0.58 Estim Creat Clear Calc 104.6 Estimated GFR > 60 Fasting Glucose 136 H Calcium 8.9 Nasal Screen MRSA (PCR) NEGATIVE Nasal S. aureus Screen NEGATIVE Nasal MRSA/S.aureus Interp SEE NOTE Discharge Plan Discharge Patient Disposition: Home, Self-Care Referrals: Mulugeta Carrington PA-C [Physician [employer] Tr[employer] Tool Setter, Orthopedics] - 2 Weeks Referral Note: 01/23/25 10:15 [facility] Mulugeta Carrington PA-C Discharge Medications: New celecoxib 200 mg Capsule 200 mg PO BID 30 Days Qty: 60 0RF acetaminophen 325 mg Tablet 650 mg PO Q6H PRN (Reason: Pain, Mild 1-3,Fever,Headache) 30 Days Qty: 240 0RF aspirin 325 mg Tablet 325 mg PO BID 42 Days Qty: 84 0RF oxycodone 5 mg Tablet 5 mg PO Q4H PRN (Reason: Pain, Moderate(Pain Scale 4-6)) 7 Days Qty: 42 0RF Rx Instructions: Partial Fill upon patient request. Continued albuterol sulfate 90 mcg/actuation HFA aerosol inhaler 2 puff inhalation Q6H PRN (Reason: Shortness Of Breath) Qty: 8.5 3RF escitalopram oxalate [Lexapro] 10 mg tablet 10 mg PO DAILY Qty: 30 0RF simvastatin 40 mg tablet 40 mg PO BEDTIME 90 Days Qty: 90 2RF cyclobenzaprine 5 mg tablet 5 mg PO BEDTIME PRN (Reason: muscle spasm) Qty: 30 0RF cholecalciferol (vitamin D3) 25 mcg (1,000 unit) capsule 25 mcg PO DAILY 90 Days Qty: 90 1RF Discontinued acetaminophen 325 mg Tablet 650 mg PO Q6H PRN (Reason: Pain, Mild (Pain Scale 1-3)) 30 Days Qty: 240 0RF oxycodone 5 mg tablet 5 mg PO Q4-6H PRN (Reason: pain) 30 Days Qty: 28 0RF Rx Instructions: Partial Fill upon patient request. Diet: Regular diet Activity on Discharge: Use cane or walker Activity Restrictions/Additional Instructions: Physical Therapy for Total knee arthroplasty: WBAT, gait training, ROM 0-12, quad strength * Limit stair climbing * No showering, no tub bath-keep dressing clean, dry and intact * No driving x6 weeks * Continue Aspirin twice a day x 6 weeks * Follow up with [facility] Orthopedics in 2 weeks: Print Language: Portuguese
[2025-01-09] MEDS: Celecoxib 200 MG CAPSULE PO (09:02)
[2025-01-09] MEDS: oxyCODONE HCl ER 10 MG TAB.ER.12H PO (09:02)
[2025-01-09] MEDS: Acetaminophen 325 MG TABLET 650 MG PO (09:03)
[2025-01-09] MEDS: 0.9 % Sodium Chloride Flush 3 ML SYRINGE IVFLUSH (09:03)
[2025-01-09] MEDS: Atorvastatin Calcium 20 MG TABLET PO (09:04)
[2025-01-09] MEDS: Cholecalciferol (Vitamin D3) 25 MCG TABLET PO (09:05)
[2025-01-09] MEDS: Milk of Magnesia 30 ML ORAL.SUSP PO (09:05)
--- NOTE | 2025-01-09 09:05 | P.F2F_ITS ---
Service Date Service Date: 01/09/25 Encounter Date of encounter: 01/09/25 Reasons for Services Signs and symptoms assessed: Weakness, poor balance, poor gait mechanics Reason for physical therapy: home safety and mobility, therapeutic exercises, restore joint function, gait/transfer training and ADL training Reason for occupational therapy: home safety and mobility, therapeutic exercises, restore joint function, gait/transfer training, ADL training and energy conservation Homebound: Leaving the home is medically contraindicated at this time without the asist of a device and/or another person due th the listed conditions above and below. Reason homebound: unsteady gait / fall risk, pain with ambulation, poor balance / fall risk and unable to drive Homebound supporting statement: Pt. is considered home bound due to recent surgery. Unable to drive, poor balance, poor gait mechanics. Certification: Based on the above findings, I certify that this patient is confined to the home and needs intermittent long term care, physical therapy and/or speech therapy, or continues to need occupational therapy. The patient is under my care, and I have initiated the establishment of the plan of care. The patient will be followed by a physician who will periodically review the plan of care. Time Spent With Patient Time: Total time managing care of this patient today ____ minutes.
[2025-01-09 09:08] VITALS: O2SAT 95
--- NOTE | 2025-01-09 09:40 | MHC.CM.PN ---
Patient lives in a home alone. Independent w/ care. Uses cane or walker PRN for long distances. Has a ramp to enter home. PCP Amaya Harris MD Reports she has an HCP naming son, Gumaro, as HCA. Copy requested. Will bring to ortho f/u appt. DP: PT rec home w/ services. [facility] is preferred and has accepted. Medically cleared for dc. Mother will transport at 11am. RN aware.
[2025-01-09] MEDS: Aspirin 325 MG TABLET PO (10:16)
[2025-01-09] MEDS: oxyCODONE HCl Immed Release 5 MG TABLET PO (10:17)
[2025-01-09 10:46] VITALS: BP 117/56; PULSE 85; RESP 16; TEMP 36.3; O2SAT 94
--- NOTE | 2025-02-14 11:51 | PM.OP ---
Brief Operative Note Date of Service: 01/08/25 Pre-op diagnosis: Right knee laxity Post-op diagnosis: same Procedure: Revision right knee arthroplasty, liner exchange only. Implants: Eleazar 14 PS Surgeon: López Wills MD Anesthesia: regional and spinal Was an Sales Representative M[employer] Liqu[employer] used for this Procedure?: Yes Sales Representative [employer]: Cira Harrison Estimated blood loss (mL): 20 Tourniquet time (min): 30 IV fluids (mL): 750 Pathology: none sent Condition: stable Disposition: PACU
--- NOTE | 2025-02-14 12:01 | W.PM.OPN ---
Operative Note Operative Note Date of Service: 01/08/25 Narrative: Date of Service: 01/08/25 Pre-op diagnosis: Right knee laxity Post-op diagnosis: same Procedure: Revision right knee arthroplasty, liner exchange only. Implants: Eleazar 14 PS Surgeon: López Wills MD Anesthesia: regional and spinal Was an Tail End Rider used for this Procedure?: Yes Tail End Rider: Cira Harrison Estimated blood loss (mL): 20 Tourniquet time (min): 30 IV fluids (mL): 750 Pathology: none sent Condition: stable Disposition: PACU Procedure in detail: The patient was brought to the operating room and prepped and draped in standard sterile fashion. A time-out was called to identify proper site proper procedure proper surgeon and IV antibiotics were administered. I began by making a midline incision through the prior incision down to the retinaculum and performed a medial parapatellar arthrotomy. There was normal appearing synovial fluid without evidence of intra-articular infection or other abnormality. I performed a small medial peel and translated the patella laterally while I flexed the knee up. I used a small osteotome to lever out the 11 PS insert. This was removed without difficulty. I then used a tamp to confirm that there was no loosening of the tibial or femoral components. These appeared stable and a normal condition. I then trialed a 13 14 in his 16 insert. I was most satisfied with a 14 insert. This did improve the medial to lateral stability. The knee was stable with full range of motion in the 16 restricted terminal extension. Therefore my final 14 insert was opened on the back table. I irrigated copiously and removed any excess fibrous tissue of which there was minimal. The 14 insert was then inserted in standard fashion. The knee was then reduced and again copiously irrigated. I then closed the deep layer with running Quill suture, the subcutaneous tissues with 2.0 in his skin with vadim. Patient tolerated the procedure well. There were no known complications. Sterile dressings were applied which was extubated and brought to recovery room in stable condition. The knee was then closed with a running Quill suture, a 3 0 Vicryl and vadim on the skin. Patient was then placed in sterile dressing and brought to recovery room in stable condition there were no known complications.
== END 2025-01-09 11:00 | disposition home health service (06) ==
LOC: HO.SSS 07:38 → HO.S3 12:03
PROVIDERS: Nurse Practitioner; Physician Assistant; PCP Internal Medicine; Visit Provider Orthopaedic Surgery
PROC: (CPT 27487; principal; 2025-01-08 09:30)
DX: T84.068A Wear of articular bearing surface of other internal prosthetic joint, initial encounter (principal); M25.561 Pain in right knee; M25.361 Other instability, right knee; M23.8X1 Other internal derangements of right knee; R26.89 Other abnormalities of gait and mobility; M79.7 Fibromyalgia; G89.4 Chronic pain syndrome; M51.369 Other intervertebral disc degeneration, lumbar region without mention of lumbar back pain or lower extremity pain; M96.1 Postlaminectomy syndrome, not elsewhere classified; Z98.1 Arthrodesis status; M48.00 Spinal stenosis, site unspecified; M19.90 Unspecified osteoarthritis, unspecified site; Z96.82 Presence of neurostimulator; F32.1 Major depressive disorder, single episode, moderate; F41.9 Anxiety disorder, unspecified; F43.9 Reaction to severe stress, unspecified; Z59.9 Problem related to housing and economic circumstances, unspecified; J45.40 Moderate persistent asthma, uncomplicated; E78.00 Pure hypercholesterolemia, unspecified; R73.03 Prediabetes; K21.9 Gastro-esophageal reflux disease without esophagitis; Z79.899 Other long term (current) drug therapy; Z88.1 Allergy status to other antibiotic agents; Z88.2 Allergy status to sulfonamides; Z88.8 Allergy status to other drugs, medicaments and biological substances; L23.1 Allergic contact dermatitis due to adhesives; Z98.84 Bariatric surgery status; Z90.49 Acquired absence of other specified parts of digestive tract; Z98.890 Other specified postprocedural states; Z87.891 Personal history of nicotine dependence
CPT/HCPCS: 27486; 36415; 73560; 80048; 85025; 85652; 86141; 86850; 86900; 86901; 87640; 87641; 93005; 97161; C1776; J0131; J0665; J0736; J1100; J1171; J2003; J2004; J2250; J2405; J2704; J3010; J7120

== ENCOUNTER → 2025-01-08 07:37 | Outpatient (BNV) | payer MEDICARE, MEDICAID, SELFPAY | PROVIDERS: PCP Internal Medicine; Visit Provider Physician Assistant | DX: Z96.651 Presence of right artificial knee joint (principal) | CPT/HCPCS: 99222 ==

== ENCOUNTER → 2025-01-08 07:37 | Outpatient (BNV) | payer MEDICARE, MEDICAID, SELFPAY | PROVIDERS: PCP Internal Medicine; Visit Provider Physician Assistant | DX: T84.068A Wear of articular bearing surface of other internal prosthetic joint, initial encounter (principal); Z96.651 Presence of right artificial knee joint | CPT/HCPCS: 27486; 99024; G0180 ==

== ENCOUNTER 2025-01-23 10:01 | Outpatient (AMB) | payer MEDICARE, MEDICAID, SELFPAY ==
--- NOTE | 2025-01-23 10:15 | A.OFFVIS_ITS ---
Intake Visit Reasons: FARHAN: 2WKPO: R TKA Rev w/NE 01/08/25 Intake Note: Kaylah is a 64 year old female who presents today for a post operative visit status post right TKA revision on 01/08/[address] Wills. Patient reports she is doing well, states having an achy sensation after surgery. Allergies adhesive tape (ADHESIVE TAPE) Allergy (Severe, Verified 01/23/25 10:19) SKIN TEARS pramipexole Allergy (Severe, Verified 01/23/25 10:19) Diarrhea adalimumab (From Humira) Allergy (Intermediate, Verified 01/23/25 10:19) Itching carisoprodol (From SOMA) Allergy (Intermediate, Verified 01/23/25 10:19) SWELLING, RASH cephalexin Allergy (Intermediate, Verified 01/23/25 10:19) Itching gabapentin Allergy (Intermediate, Verified 01/23/25 10:19) leg swelling sulfamethoxazole (From BACTRIM) Allergy (Intermediate, Verified 01/23/25 10:19) SWELLING,RASH trimethoprim (From BACTRIM) Allergy (Intermediate, Verified 01/23/25 10:19) SWELLING,RASH Medication List - Last Reconciled 01/23/25 by Mulugeta Carrington PA-C acetaminophen 650 mg (2 x 325 mg) PO Q6H PRN 30 days albuterol sulfate 90 mcg/actuation 2 puffs inhalation Q6H PRN aspirin 325 mg PO BID 42 days celecoxib 200 mg PO BID 30 days cholecalciferol (vitamin D3) 25 mcg PO DAILY 90 days cyclobenzaprine 5 mg PO BEDTIME PRN escitalopram oxalate (Lexapro) 10 mg PO DAILY oxycodone 10 mg PO Q6H PRN 7 days simvastatin 40 mg PO BEDTIME 90 days HPI HPI FARHAN: 2WKPO: R TKA Rev w/NE 01/08/25: Details: 64-year-old female returns to the office today 2 weeks status post right total knee arthroplasty with liner exchange on 01/08/[address] Wills. She states she is doing well working with physical therapy and she denies any instability with activities. [facility] Medical History Arthritis History of headache Anxiety Depression Elevated cholesterol History of COVID-19 Chest pain JOHN positive Chronic pain syndrome Postlaminectomy syndrome of lumbar region Postlaminectomy syndrome of cervical region Chronic GERD Periodic limb movement disorder Sleeping difficulty Sciatica, right side Asthma, moderate Constipation by delayed colonic transit Pre-diabetes DJD (degenerative joint disease) Lipid disorder Bursitis of right shoulder Right shoulder pain Spinal stenosis Back pain Fibromyalgia Degenerative disc disease Surgical History Status post total right knee replacement History of total right knee replacement History of lumbar fusion S/P placement of nerve stimulator History of sleeve gastrectomy History of esophagogastroduodenoscopy (EGD) H/O colonoscopy History of gastric bypass Hx of cholecystectomy H/O: hysterectomy H/O spinal fusion H/O shoulder surgery Family History Father No problems noted. Mother No problems noted. Other Mental health disorder Social History Household Members: Other Household Members Other:: son Housing: House Are you a primary animal care taker to a significant other at home: No Do you presently have visiting nurse or other home services: No Alcohol intake: current Alcohol intake frequency: holidays/special occasions only Comment: pts baseline pain is 6/10 Patient Tobacco Use Status: Former Tobacco user Tobacco use type: Cigarette Years Smoked: 30 e-Cigarette/Vaping Use: Never Used Second Hand Smoke Exposure: No Substance Use Type: Marijuana service: No Current occupational status: disabled Current occupation: right handed Cognitive needs: No Hearing needs: No Vision needs: Yes Review of Systems Const All systems reviewed & are unremarkable except as noted in HPI and below Physical Exam Extrem Other: Right knee incision is clean dry and intact. No erythema or drainage. She has- 5 extension with 90 degrees of flexion. Good quad activation. Calf supple nontender neurovascularly intact. 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 She will continue working with physical therapy to improve her strength and motion. She was given a refill of oxycodone and a prescription for Voltaren gel as the Celebrex caused a reaction due to her sulfa allergy. I explained the Voltaren gel should not be applied over the incision just around the outside of the knee. She will see us back for her routine follow-up in [address] Wills sooner if needed. 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
--- OUTSIDE RECORDS SUMMARY | 2025-01-23 10:40 | XMS_ITS | Patient Health Record ---
Author Organization [facility] Address [address] [place] [address] Care Team Providers Care Assembler Musical Equipment Name Role Phone Steven MILLIGAN, Asma Primary Care Provider Andrew Dennis [phone] Allergies Allergen (clinical drug ingredient) Drug/Non Drug Allergy documented on EMR Reaction Allergy Type Onset Date Status carisoprodol Soma Unknown Drug Allergy Acti ve sulfamethoxazole / trimethoprim Bactrim Unknown Drug Allergy Active Reason For Referral No Information Medications Medication SIG (Take, Route, Frequency, Duration) Notes Start Date End Date Status Simvastatin 40 MG Orally Ac tive Omeprazole 20 MG TAKE 1 CAPSULE BY [facility] TWICE A DAY for 90 Active [...] W/U Status Risk Notes Problem Epigastric pain (41612353) Epigastric abdominal pain (R10.13) Active confirmed Problem Irritable bowel syndrome (19386132) Irritable bowel syndrome (K58.9) Active confirmed Problem [id number] Valverde's esophagus without dysplasia (K22.70) Active confirmed Problem Early satiety (664100114) Early satiety (R68.81) Active confirmed Problem Gastroesophageal reflux disease (911891459) GERD (gastroesophage al reflux disease) (K21.9) Active confirmed Problem Vomiting (922425847) Vomiting (R11.10) Active confirmed Problem 950685849 Irritable bowel syndrome with constipation (K58.1) Active [...] OF [place] [address] [place] [phone] [id number] FARHAN PETERSON Self - patient is the insured MEDICAID OF [facility] [address] [place] [address] [id number] FARHAN PETERSON Self - patient is the insured Medical (General) History Medical History History ICD Code Chronic neck and back pain from degenera tive disc disease Denies GA,DM,CVA,renal disease Asthma Fibromyalgia Distant hx of stomach [...]
== END 2025-01-23 11:59 | disposition home or self-care (01) ==
LOC: HO.HOS 10:02
PROVIDERS: PCP Internal Medicine; Visit Provider Physician Assistant
DX: T84.068A Wear of articular bearing surface of other internal prosthetic joint, initial encounter (principal); Z96.659 Presence of unspecified artificial knee joint
CPT/HCPCS: 99024

== ENCOUNTER → 2025-01-23 10:01 | Outpatient (BNVA) | payer MEDICARE, MEDICAID, SELFPAY | PROVIDERS: PCP Internal Medicine; Visit Provider Physician Assistant | DX: T84.068A Wear of articular bearing surface of other internal prosthetic joint, initial encounter (principal); Z96.659 Presence of unspecified artificial knee joint | CPT/HCPCS: 99212 ==

== ENCOUNTER 2025-02-13 12:19 | Outpatient (AMB) | payer MEDICARE, MEDICAID, SELFPAY ==
--- NOTE | 2025-02-13 12:48 | MHC.OFFVIS ---
Intake Visit Reasons: 6WKPO: R TKA Revision w/NE 01/08/25 Intake Note: Kaylah is a 64 year old female who presents today for a post operative visit s/p Right TKA Revision 01/08/25 & Right TKA 06/28/2022. Patient reports she is doing well, however she complains of soreness and swelling, also experiencing stabbing pain. Applied voltaren, no relief. Would like to discuss refill for oxycodone. She was given a Rx for Voltaren gel to be applied to the knee but NOT on incision site. Allergies adhesive tape (ADHESIVE TAPE) Allergy (Severe, Verified 02/13/25 12:52) SKIN TEARS pramipexole Allergy (Severe, Verified 02/13/25 12:52) Diarrhea adalimumab (From Humira) Allergy (Intermediate, Verified 02/13/25 12:52) Itching carisoprodol (From SOMA) Allergy (Intermediate, Verified 02/13/25 12:52) SWELLING, RASH cephalexin Allergy (Intermediate, Verified 02/13/25 12:52) Itching gabapentin Allergy (Intermediate, Verified 02/13/25 12:52) leg swelling sulfamethoxazole (From BACTRIM) Allergy (Intermediate, Verified 02/13/25 12:52) SWELLING,RASH trimethoprim (From BACTRIM) Allergy (Intermediate, Verified 02/13/25 12:52) SWELLING,RASH HPI HPI 6WKPO: R TKA Revision w/NE 01/08/25: Details: Doign well. Still with mild pain but feels more stable than prior. [facility] Medical History Arthritis History of headache Anxiety Depression Elevated cholesterol History of COVID-19 Chest pain JOHN positive Chronic pain syndrome Postlaminectomy syndrome of lumbar region Postlaminectomy syndrome of cervical region Chronic GERD Periodic limb movement disorder Sleeping difficulty Sciatica, right side Asthma, moderate Constipation by delayed colonic transit Pre-diabetes DJD (degenerative joint disease) Lipid disorder Bursitis of right shoulder Right shoulder pain Spinal stenosis Back pain Fibromyalgia Degenerative disc disease Surgical History Status post total right knee replacement History of total right knee replacement History of lumbar fusion S/P placement of nerve stimulator History of sleeve gastrectomy History of esophagogastroduodenoscopy (EGD) H/O colonoscopy History of gastric bypass Hx of cholecystectomy H/O: hysterectomy H/O spinal fusion H/O shoulder surgery Family History Father No problems noted. Mother No problems noted. Other Mental health disorder Social History Household Members: Other Household Members Other:: son Housing: House Are you a primary healthcare administration internship to a significant other at home: No Do you presently have visiting nurse or other home services: No Alcohol intake: current Alcohol intake frequency: holidays/special occasions only Comment: pts baseline pain is 6/10 Patient Tobacco Use Status: Former Tobacco user Tobacco use type: Cigarette Years Smoked: 30 e-Cigarette/Vaping Use: Never Used Second Hand Smoke Exposure: No Substance Use Type: Marijuana service: No Current occupational status: disabled Current occupation: right handed Cognitive needs: No Hearing needs: No Vision needs: Yes Physical Exam Extrem Other: inc c/d/i 0-130 stable to v/v stress 2+ dp Assessment & Plan Assessment & Plan (1) Status post total knee replacement, right: Code(s): Z96.651 - Presence of right artificial knee joint Category: Surgical Plan: s/p revision right TKA (liner only) doing well. Continue strengthening and f/u 6 weeks. November d/c ASA if she was not taking pre operatively Coding Level of Care Code Global (09997) Diagnoses Status post total knee replacement, right Z96.651
--- OUTSIDE RECORDS SUMMARY | 2025-02-13 12:48 | XMS_ITS | Patient Health Record ---
Author Organization [facility] Address [address] [place] [address] Care Team Providers Care Racket Stringer Name Role Phone Steven MILLIGAN, Asma Primary Care Provider Andrew Dennis [phone] Allergies Allergen (clinical drug ingredient) Drug/Non Drug Allergy documented on EMR Reaction Allergy Type Onset Date Status carisoprodol Soma Unknown Drug Allergy Acti ve sulfamethoxazole / trimethoprim Bactrim Unknown Drug Allergy Active Reason For Referral No Information Medications Medication SIG (Take, Route, Frequency, Duration) Notes Start Date End Date Status Simvastatin 40 MG Orally Ac tive Omeprazole 20 MG TAKE 1 CAPSULE BY [facility] TWICE A DAY for 90 Active Incruse [...] W/U Status Risk Notes Problem Epigastric pain (29994948) Epigastric abdominal pain (R10.13) Active confirmed Problem Irritable bowel syndrome (53069301) Irritable bowel syndrome (K58.9) Active confirmed Problem 867219630 Valverde's esophagus without dysplasia (K22.70) Active confirmed Problem Early satiety (660316301) Early satiety (R68.81) Active confirmed Problem Gastroesophageal reflux disease (512906074) GERD (gastroesophage al reflux disease) (K21.9) Active confirmed Problem Vomiting (113853953) Vomiting (R11.10) Active confirmed Problem 673588767 Irritable bowel syndrome with constipation (K58.1) Active [...] OF [place] [address] [place] [phone] [id number] FARHAN PEETRSON Self - patient is the insured MEDICAID OF [facility] [address] [place] [address] [id number] FARHAN PETERSON Self - patient is the insured Medical (General) History Medical History History ICD Code Chronic neck and back pain from degenera tive disc disease Denies WA,DM,CVA,renal disease Asthma Fibromyalgia Distant hx of stomach [...]
--- OUTSIDE RECORDS SUMMARY | 2025-02-13 12:48 | XMS_ITS | Encounter Summary ---
Author Organization [facility] Address [address] [place] [address] Phone Care Team Providers Care Technology Sales Consultant Name Role Phone AnselmoCarlos Alberto SANDAL PARTS ASSEMBLER Unavailable [email or web address] Amaya Harris MD Unavailable Jimmy Davis MD Unavailable [phone] Amaya Harrsi MD Primary Care Provider Encounter Details Date Type Department Care Team (Late st Contact Info) Description 12/06/2017 Ancillary Orders [facility] [place] [place] - [address] [address] Santos Daniels MD [address] [place] [address] [email or web address] Fusion of spine of lumbar region Social History Tobacco Use Types Packs/Day Years Used Date Smoking Tobacco: Former Cigarettes Q uit: 2010 Smokeless Tobacco: Never Alcohol Use Standard Drinks/Week Comments Yes 0 (1 standard drink = 0.6 oz pur e alcohol) 1-2 drinks/month Comments Unknown Sex and Gender Information Value Date Recorded Sex Assigned at Female 03/18/2021 10:58 AM EDT Legal Sex Female 4:04 PM EST Gender Identity Female 03/18/2021 10:58 AM EDT Sexual Orientation Straight 03/18/2021 10 :58 AM EDT documented as of this encounter Plan of Treatment Not on file documented as of this encounter Results * XR LUMBOSACRAL SPINE 2-3 VIEWS (12/06/2017 10:08 AM EDT) Anatomical Region Laterality Modality L-spine Radiographic [place] ging 12/06/2017 10:2 0 AM EDT Impressions 12/06/2017 10:22 AM EDT Status post posterior L5-S1 fusion. No subluxations. POS - [id number] Narrative 12/06/2017 10:22 AM EDT EXAM: Radiographs of the lumbar spine, 3 views COMPARISON: June 19, 2017 FINDINGS: Patient is status post posterior fusion hardware and disc spacer placement at L5-S1. No anterior or posterior subluxations. Vertebral body heights are maintained. The remaining disc spaces are preserved. Small marginal osteophytes noted in the lower thoracic/upper lumbar spine. Mild degenerative changes in both sacroiliac joints have symmetric appearance. Procedure Note Tye Aguirre MD - 12/06/2017 EXAM: Radiographs of the lumbar spine, 3 views COMPARISON: June 19, 2017 FINDINGS: Patient is status post posterior fusion hardware and disc spacer placementat L5- S1. No anterior or posterior subluxations. Vertebral body heightsare maintained. The remaining disc spaces are preserved. Small marginalosteophytes noted in the lower thoracic/upper lumbar spine. Milddegenerative changes in both sacroiliac joints have symmetricappearance. IMPRESSION: Status post posterior L5-S1 fusion. No subluxations. POS - [id number] Santos Daniels MD IMG XR SPINE Final Res ult documented in this encounter Visit Diagnoses Diagnosis Fusion of spine of lumbar region Fusion of spine of lumbar region documented in this encounter Care Teams Technology Sales Consultant Relationship Specialty Start Date End Date Amaya Harirs MD [address] [place] [address] PCP - General Internal Medicine 12/06/17 Carlos Alberto Briones RAJAN [email or web address] Historical LMR Provider 05/13/17 Amaya Harris MD [address] [place] [address] [place] [address] Historical LMR Provider 05/13/17 2 Jimmy Davis MD [address] [place] [address] [email or web address] Historical LMR Provider 05/13/17 documented as of this encounter Additional Source Comments The information contained in this document represents components of the legal health record. It is not the complete legal health record.[facility]
== END 2025-02-13 13:09 | disposition home or self-care (01) ==
LOC: HO.HOS 12:20
PROVIDERS: PCP Internal Medicine; Visit Provider Orthopaedic Surgery
DX: Z96.651 Presence of right artificial knee joint (principal)
CPT/HCPCS: 99024

== ENCOUNTER → 2025-02-13 12:19 | Outpatient (BNVA) | payer MEDICARE, MEDICAID, SELFPAY | PROVIDERS: PCP Internal Medicine; Visit Provider Orthopaedic Surgery | DX: Z96.651 Presence of right artificial knee joint (principal) | CPT/HCPCS: 99212 ==

== ENCOUNTER 2025-03-11 08:28 | Outpatient (REF) | payer MEDICARE, MEDICAID, SELFPAY ==
--- NOTE | ~2025-03-11 | US_ITS ---
EXAMINATION: US TRIPLEX LOWER EXTREMITY, RIGHT CLINICAL INFORMATION: Status post knee replacement. Edema, right lower extremity. COMPARISON: None available. TECHNIQUE: Color-flow triplex imaging with spectral analysis and compression Doppler were performed on the right lower extremity. FINDINGS: Respiratory variation, normal compression and augmented flow are demonstrated in the interrogated right common femoral vein, superficial femoral vein, profunda femoral vein, popliteal vein and midcalf peroneal and posterior tibial venous segments. . There is no Boland's cyst. US/US venous duplex LE RT IMPRESSION: No acute deep venous thrombosis interrogated veins, right lower extremity.Negative for DVT. Electronically signed by: Westley Liang MD 03/11/2025 09:15 AM EDT
--- OUTSIDE RECORDS SUMMARY | 2025-03-11 09:11 | XMS_ITS | Encounter Summary ---
Author Organization [facility] Address [address] [place] [address] Phone Care Team Providers Care Forestry Pilot Name Role Phone AnselmoCarlos Alberto ROBOTICS SOFTWARE ENGINEER Unavailable pwit Amaya Harris MD Unavailable Jimmy Davis MD Unavailable [phone] Amaya Harris MD Primary Care Provider [phone] Encounter Details Date Type Department Care Team (Late st Contact Info) Description 12/06/2017 Ancillary Orders [facility], -[place] - [address] [address] Santos Daniels MD [address] [place] [address] [email or web address] Fusion of spine of lumbar region [...] region documented in this encounter Care Teams Forestry Pilot Relationship Specialty Start Date End Date Amaya Harris MD [address] [place] [address] PCP - General Internal Medicine 12/06/17 Carlos Alberto Briones RAJAN [email or web address] Historical LMR Provider 05/13/17 Amaya Harris MD [address] [place] [address] [place] [address] Historical LMR Provider 05/13/17 2 Jimmy Davis MD [address] [place] [address] [email or web address] Historical LMR Provider 05/13/17 documented as of this encounter Additional Source Comments The information contained in this document represents components of the legal health record. It is not the complete legal health record.[facility]
--- OUTSIDE RECORDS SUMMARY | 2025-03-11 09:11 | XMS_ITS | Patient Health Record ---
Author Organization [facility] Address [address] [place] [address] Care Team Providers Care Research Microbiologist Name Role Phone Steven MILLIGAN, Asma Primary Care Provider Andrew Dennis [phone] Allergies Allergen (clinical drug ingredient) Drug/Non Drug Allergy documented on EMR Reaction Allergy Type Onset Date Status carisoprodol Soma Unknown Drug Allergy Acti ve sulfamethoxazole / trimethoprim Bactrim Unknown Drug Allergy Active Reason For Referral No Information Medications Medication SIG (Take, Route, Frequency, Duration) Notes Start Date End Date Status Simvastatin 40 MG Orally Ac tive Omeprazole 20 MG TAKE 1 CAPSULE BY [facility] TWICE A DAY for 90 Active [...] W/U Status Risk Notes Problem Epigastric pain (10926860) Epigastric abdominal pain (R10.13) Active confirmed Problem Irritable bowel syndrome (78164374) Irritable bowel syndrome (K58.9) Active confirmed Problem 432619922 Valverde's esophagus without dysplasia (K22.70) Active confirmed Problem Early satiety (794132094) Early satiety (R68.81) Active confirmed Problem Gastroesophageal reflux disease (118451182) GERD (gastroesophage al reflux disease) (K21.9) Active confirmed Problem Vomiting (000464262) Vomiting (R11.10) Active confirmed Problem 552650956 Irritable bowel syndrome with constipation (K58.1) Active [...] OF [place] [address] [place] [phone] [id number] FARHAN PETERSON Self - patient is the insured MEDICAID OF [facility] [address] [place] [address] [id number] FARHAN PETERSON Self - patient is the [...]
== END 2025-03-11 08:29 | disposition home or self-care (01) ==
LOC: HO.US 08:28
PROVIDERS: PCP Internal Medicine; Visit Provider Physician Assistant
DX: R22.41 Localized swelling, mass and lump, right lower limb (principal)
CPT/HCPCS: 93971

== ENCOUNTER → 2025-03-11 09:00 | Outpatient (BNV) | payer MEDICARE, MEDICAID, SELFPAY | PROVIDERS: PCP Internal Medicine; Visit Provider Radiology Diagnostic Radiology | DX: R22.41 Localized swelling, mass and lump, right lower limb (principal) | CPT/HCPCS: 93971 ==

== ENCOUNTER 2025-03-13 08:17 | Outpatient (REF) | payer MEDICARE, MEDICAID, SELFPAY ==
--- NOTE | ~2025-03-13 | XR_ITS ---
EXAMINATION: XR KNEE, RIGHT CLINICAL INFORMATION: M17.11 - Unilateral primary osteoarthritis, right knee COMPARISON: January 08, 2025 TECHNIQUE: Three views of the right knee. FINDINGS: The left knee demonstrates moderate narrowing of the medial compartment with moderate-sized medial joint line osteophytes and small moderate lateral joint line osteophytes. Condylar spine osteophytes are also present. There is amorphous calcification in the medial meniscus. Total knee arthroplasty has been performed on the left. There is no abnormal lucency at bone metal interfaces. No fractures identified. Small amount joint fluid is present. The Insall-Salvati ratio measured 0.7 consistent with patella baja. XR/XR knee RT 3V IMPRESSION: Moderate osteoarthritis of the left knee. Total knee arthroplasty on the right with a joint effusion and patella baja Electronically signed by: Meño Sliva MD 03/13/2025 10:00 AM EDT
== END 2025-03-13 08:18 | disposition home or self-care (01) ==
LOC: HO.HOSX 08:17
PROVIDERS: Visit Provider Physician Assistant
DX: T84.068A Wear of articular bearing surface of other internal prosthetic joint, initial encounter (principal); M17.11 Unilateral primary osteoarthritis, right knee
CPT/HCPCS: 73562; 99212

== ENCOUNTER 2025-03-13 09:03 | Outpatient (AMB) | payer MEDICARE, MEDICAID, SELFPAY ==
--- NOTE | 2025-03-13 09:19 | A.OFFVIS_ITS ---
Intake Visit Reasons: PO-Right TKA 01/08/25 Intake Note: Kaylah is a 64 year old female who presents today with complains of pain and swelling status post right total knee arthroplasty on 01/08/25, performed by Dr. Wills. Patient reports with ambulation she has tightness and burning pain at the lateral side just below her knee. States this pain makes her have to stop walking. She continues to have swelling that becomes worse in the afternoon. Allergies adhesive tape (ADHESIVE TAPE) Allergy (Severe, Verified 03/13/25 09:24) SKIN TEARS pramipexole Allergy (Severe, Verified 03/13/25 09:24) Diarrhea adalimumab (From Humira) Allergy (Intermediate, Verified 03/13/25 09:24) Itching carisoprodol (From SOMA) Allergy (Intermediate, Verified 03/13/25 09:24) SWELLING, RASH cephalexin Allergy (Intermediate, Verified 03/13/25 09:24) Itching gabapentin Allergy (Intermediate, Verified 03/13/25 09:24) leg swelling sulfamethoxazole (From BACTRIM) Allergy (Intermediate, Verified 03/13/25 09:24) SWELLING,RASH trimethoprim (From BACTRIM) Allergy (Intermediate, Verified 03/13/25 09:24) SWELLING,RASH Medication List - Last Reconciled 03/13/25 by Mulugeta Carrington PA-C acetaminophen 650 mg (2 x 325 mg) PO Q6H PRN 30 days albuterol sulfate 90 mcg/actuation 2 puffs inhalation Q6H PRN aspirin 325 mg PO BID 42 days celecoxib 200 mg PO BID 30 days cholecalciferol (vitamin D3) 25 mcg PO DAILY 90 days cyclobenzaprine 5 mg PO BEDTIME PRN diclofenac sodium 1% 4 grams topical QID 30 days escitalopram oxalate (Lexapro) 10 mg PO DAILY oxycodone 5 mg PO Q8H PRN 7 days simvastatin 40 mg PO BEDTIME 90 days HPI HPI PO-Right TKA 01/08/25: Details: 64-year-old female returns to the office today status post revision right TKA on 12/23/2017 25 she underwent a liner exchange. She states since the surgery she feels some tightness behind the knee which causes swelling into the knee but also limits her ability to walk long distances. She denies fever or chills. Denies injury. Denies actual pain inside the knee joint itself. [facility] Medical History Arthritis History of headache Anxiety Depression Elevated cholesterol History of COVID-19 Chest pain JOHN positive Chronic pain syndrome Postlaminectomy syndrome of lumbar region Postlaminectomy syndrome of cervical region Chronic GERD Periodic limb movement disorder Sleeping difficulty Sciatica, right side Asthma, moderate Constipation by delayed colonic transit Pre-diabetes DJD (degenerative joint disease) Lipid disorder Bursitis of right shoulder Right shoulder pain Spinal stenosis Back pain Fibromyalgia Degenerative disc disease Surgical History Status post total right knee replacement History of total right knee replacement History of lumbar fusion S/P placement of nerve stimulator History of sleeve gastrectomy History of esophagogastroduodenoscopy (EGD) H/O colonoscopy History of gastric bypass Hx of cholecystectomy H/O: hysterectomy H/O spinal fusion H/O shoulder surgery Family History Father No problems noted. Mother No problems noted. Other Mental health disorder Social History Household Members: Other Household Members Other:: son Housing: House Are you a primary critical care technician to a significant other at home: No Do you presently have visiting nurse or other home services: No Alcohol intake: current Alcohol intake frequency: holidays/special occasions only Comment: pts baseline pain is 6/10 Patient Tobacco Use Status: Former Tobacco user Tobacco use type: Cigarette Years Smoked: 30 e-Cigarette/Vaping Use: Never Used Second Hand Smoke Exposure: No Substance Use Type: Marijuana service: No Current occupational status: disabled Current occupation: right handed Cognitive needs: No Hearing needs: No Vision needs: Yes Review of Systems Const All systems reviewed & are unremarkable except as noted in HPI and below Physical Exam Extrem Other: Right knee incision is well healed. She has no erythema or swelling. Range of motion is 0-115. No laxity with valgus or varus stress. Calf supple and nontender neurovascularly intact. 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 She may be experiencing some muscle weakness or tightness from deconditioning preoperatively. I encouraged her to continue working with physical therapy and use medications to help with swelling. Unfortunately she can not take NSAIDs due to GI upset and sulfa allergy therefore I recommend topical creams to help. She will see us back for her routine postop appointment on 03/[address] Wills, sooner if needed. 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
--- OUTSIDE RECORDS SUMMARY | 2025-03-13 10:06 | XMS_ITS | Encounter Summary ---
Author Organization [facility] Address [address] [place] [address] Phone Care Team Providers Care Carpet Installer Name Role Phone AnselmoCarlos Alberto METAL CABINET FINISHER Unavailable pwit Amaya Harris MD Unavailable Jimmy Davis MD Unavailable [phone] Amaya Harris MD Primary Care Provider [phone] Encounter Details Date Type Department Care Team (Late st Contact Info) Description 12/06/2017 Ancillary Orders [facility], -[place] - [address] [address] Santos Daniels MD [address] [place] [address] [email or web address] Fusion of spine of lumbar region Social [...] region documented in this encounter Care Teams Carpet Installer Relationship Specialty Start Date End Date Amaya Harris MD [address] [place] [address] PCP - General Internal Medicine 12/06/17 Carlos Alberto Briones RAJAN [email or web address] Historical LMR Provider 05/13/17 Amaya Harris MD [address] [place] [address] [place] [address] Historical LMR Provider 05/13/17 2 Jimmy Davis MD [address] [place] [address] [email or web address] Historical LMR Provider 05/13/17 documented as of this encounter Additional Source Comments The information contained in this document represents components of the legal health record. It is not the complete legal health record.[facility]
--- OUTSIDE RECORDS SUMMARY | 2025-03-13 10:06 | XMS_ITS | Patient Health Record ---
Author Organization [facility] Address [address] [place] [address] Care Team Providers Care Moss Bleacher Name Role Phone Steven MILLIGAN, Asma Primary Care Provider Andrew Dennis [phone] Allergies Allergen (clinical drug ingredient) Drug/Non Drug [...] TAKE 1 CAPSULE BY [facility] TWICE A DAY for 90 Active Incruse [...] W/U Status Risk Notes Problem Epigastric pain (38479529) Epigastric abdominal pain (R10.13) Active confirmed Problem Irritable bowel syndrome (77979369) Irritable bowel syndrome (K58.9) Active confirmed Problem [id number] Valverde's esophagus without dysplasia (K22.70) Active confirmed Problem Early satiety (440589779) Early satiety (R68.81) Active confirmed Problem Gastroesophageal reflux disease (727831047) GERD (gastroesophage al reflux disease) (K21.9) Active confirmed Problem Vomiting (349767228) Vomiting (R11.10) Active confirmed Problem [id number] Irritable bowel syndrome with constipation (K58.1) Active [...] OF [place] [address] JOE LAYNECHINTANSIVAN [phone] [id number] FARHAN PETERSON Self - patient is the insured MEDICAID OF [facility] [address] [place] [address] [id number] FARHAN PETERSON Self - patient is the insured Medical (General) History Medical History History ICD Code Chronic neck and back pain from degenera tive disc disease Denies DC,DM,CVA,renal disease Asthma Fibromyalgia Distant hx of stomach [...]
== END 2025-03-13 09:54 | disposition home or self-care (01) ==
LOC: HO.HOS 09:04
PROVIDERS: PCP Internal Medicine; Visit Provider Physician Assistant
DX: T84.068A Wear of articular bearing surface of other internal prosthetic joint, initial encounter (principal); Z96.659 Presence of unspecified artificial knee joint
CPT/HCPCS: 99024

== ENCOUNTER → 2025-03-13 09:07 | Outpatient (BNV) | payer MEDICARE, MEDICAID, SELFPAY | PROVIDERS: Visit Provider Radiology Diagnostic Radiology | DX: M17.11 Unilateral primary osteoarthritis, right knee (principal); M22.91 Unspecified disorder of patella, right knee; M25.461 Effusion, right knee; Z96.651 Presence of right artificial knee joint | CPT/HCPCS: 73562 ==

== ENCOUNTER 2025-03-18 10:30 | Outpatient (REF) | payer MEDICARE, MEDICAID, SELFPAY ==
--- NOTE | ~2025-03-18 | XR_ITS ---
EXAMINATION: XR BILATERAL HIPS WITH AP PELVIS CLINICAL INFORMATION: M25.551 - Pain in right hip COMPARISON: 04/17/2023 TECHNIQUE: AP and frog-leg lateral views of each hip and an AP view of the pelvis. FINDINGS: The pelvis demonstrates posterior pedicle screws and rods fusing L4-5. Atelectatic generator projects over the right hemipelvis with leads extending up to the midline at L3 and of the margin. Right hip joint space is preserved. Lateral Center edge angle is within normal limits measuring 38 degrees. Left hip joint spaces preserved. Lateral Center edge angle is within normal limits measuring 38 degrees. XR/XR hip BI w [id number] IMPRESSION: Unremarkable pelvis and bilateral hips. PLIF L4-5 Electronically signed by: Meño Silva MD 03/18/2025 11:30 AM EDT
== END 2025-03-18 10:31 | disposition home or self-care (01) ==
LOC: HO.HMGCX 10:30
PROVIDERS: PCP Internal Medicine; Visit Provider Internal Medicine
DX: M25.551 Pain in right hip (principal); M25.552 Pain in left hip; Z00.00 Encounter for general adult medical examination without abnormal findings; I70.90 Unspecified atherosclerosis; E78.9 Disorder of lipoprotein metabolism, unspecified; R73.03 Prediabetes; E66.01 Morbid (severe) obesity due to excess calories; G47.61 Periodic limb movement disorder; J45.30 Mild persistent asthma, uncomplicated; D64.9 Anemia, unspecified; F41.1 Generalized anxiety disorder; F32.2 Major depressive disorder, single episode, severe without psychotic features; Z79.82 Long term (current) use of aspirin; Z79.891 Long term (current) use of opiate analgesic; Z79.899 Other long term (current) drug therapy
CPT/HCPCS: 73521; 83036; 99212; 99397

== ENCOUNTER 2025-03-18 10:30 | Outpatient (AMB) | payer MEDICARE, MEDICAID, SELFPAY ==
--- NOTE | 2025-03-18 10:34 | MHC.PC.OV ---
Vital Signs 03/18/25 10:35 Height 5 ft 3 in Weight 205 lb BMI 36.3 BP 118/60 Blood Pressure Location Rt brachial Position Sitting Respiration 16 Pulse 83 Pulse Source Pulse Oximeter Temp 98.3 F Temp Source Oral Pulse Oximetry (%) 96 Oxygen Delivery Method Room Air Intake Visit Reasons: PE Allergies adhesive tape (ADHESIVE TAPE) Allergy (Severe, Verified 03/18/25 10:38) SKIN TEARS pramipexole Allergy (Severe, Verified 03/18/25 10:38) Diarrhea adalimumab (From Humira) Allergy (Intermediate, Verified 03/18/25 10:38) Itching carisoprodol (From SOMA) Allergy (Intermediate, Verified 03/18/25 10:38) SWELLING, RASH cephalexin Allergy (Intermediate, Verified 03/18/25 10:38) Itching gabapentin Allergy (Intermediate, Verified 03/18/25 10:38) leg swelling sulfamethoxazole (From BACTRIM) Allergy (Intermediate, Verified 03/18/25 10:38) SWELLING,RASH trimethoprim (From BACTRIM) Allergy (Intermediate, Verified 03/18/25 10:38) SWELLING,RASH Medication List - Last Reconciled 03/18/25 by Amaya Harris MD acetaminophen 650 mg (2 x 325 mg) PO Q6H PRN 30 days albuterol sulfate 90 mcg/actuation 2 puffs inhalation Q6H PRN aspirin 325 mg PO BID 42 days celecoxib 200 mg PO BID 30 days cholecalciferol (vitamin D3) 25 mcg PO DAILY 90 days cyclobenzaprine 5 mg PO BEDTIME PRN diclofenac sodium 1% 4 grams topical QID 30 days escitalopram oxalate (Lexapro) 10 mg PO DAILY oxycodone 5 mg PO Q8H PRN 7 days simvastatin 40 mg PO BEDTIME 90 days Tobacco use date assessed: 03/18/25 Fall risk assessment: No Falls in past year Last assessed Fall Risk: 03/18/25 Dental Screening Dental Screen Date: 03/18/25 Did you have a dental visit in the last 12 months?: No Did you have a dental problem in the last 6 months where you did not have access to dental care?: No Was dental information given to patient?: Patient declined HPI PE HPI Details History of Present Illness The patient is a 64-year-old female presenting for physical exam patient has history of obesity with BMI of 36.3, history of multiple joint osteoarthritis History of right knee replacement surgery, vitamin-D deficiency, depression, lipid disorder History of right knee replacement, having appointment with orthopedic coming up Osteoarthritis of the hip: - The patient confirms having osteoarthritis in the hip area. - Pain in the right hip is described as persistent and aching. - Fuller is intermittent with periods of exacerbation and relief. - The patient denies any recent hip X-rays and agrees to have one ordered. Right hip pain: - The right hip pain is of increasing frequency and severity. - Reported difficulties in comfort during sitting or sleeping, regardless of position adjustments like hanging or stretching the leg. Anemia: - The patient's lab results indicated borderline anemia with a hemoglobin level of 11.9. Prediabetes: - No prior diagnosis of diabetes mellitus. - Family history includes diabetes mellitus in the patient's father and brother. - Lab results indicated fasting sugar at 136. - A1c level was tested at 6.0, indicating prediabetes. Allergic reaction to Celebrex: - Patient indicates an allergic reaction to Celebrex with symptoms of itching. - She states this was due to a sulfa component in the medication. Medical History: - Osteoarthritis - Borderline anemia - Prediabetes Surgical History: - Knee revision surgery Family History: - Father: Diabetes mellitus - Brother: Diabetes mellitus - Mother: Atrial Fibrillation - Younger brother: Myocardial infarction - Older brother: Coronary artery disease with quadruple bypass surgery Health Maintenance - Mammogram conducted in October - Up-to-date FINANCIAL SERVICES COUNSELOR visits - Last colonoscopy conducted in 2021 at [facility]; next recommended in 2031 - Normal EKG on January 08 [facility] - Orthopedic consultation scheduled for March 27 for knee recheck Medications - Tylenol, for general pain management - Vitamin D, for supplement - Lexapro 10 mg, for unspecified use - Simvastatin 40 mg, for hyperlipidemia - Oxycodone 5 mg, for pain management - Denied any use of Celebrex due to allergy Diagnostic results - Laboratory tests from December showed borderline anemia with hemoglobin at 11.9. - Fasting glucose was 136 mg/dL, suggesting prediabetes. - EKG in December demonstrated normal sinus rhythm. Patient Instructions - Discuss hip pain and possible management with crisis specialist. - Await x-ray results for further evaluation of hip condition. - controlled diet to lose weight and also for the diagnosis of prediabetes. - If semaglutide is approved by insurance, contact office for administration instruction. - Maintain current medication regimen and inform provider if condition changes. Follow-up 3 months Review of Systems - General: No fever no chills - Neurological: No headaches no dizziness - Ear nose throat: No sore throat no hearing difficulty no ear pain - Cardiovascular: No syncope, no chest pain, no palpitations - Gastrointestinal: No nausea vomiting or diarrhea - Endocrine: No polyuria polydipsia no heat intolerance - Genitourinary: No dysuria - Skin: No new complaints Physical Exam General: Cooperative, healthy appearing, comfortable, no acute distress Orientation: Patient oriented x3 Head: Normal to inspection Ears: Within normal limit visually Nose: Normal external nose present Face and sinus: Normal facial exam Eyes: Appearance normal, extraocular movement intact pupils reactive Neck: Normal visual inspection and supple Respiratory: Normal respiratory effort and able to speak in complete sentences. Clear to auscultation, no stridor Cardiovascular: S1 and S2 RRR, normal sinus rhythm, normal EKG GI: Normal to inspection. Soft to palpation and nontender Breast exam declined Skin: Turgor normal, no acute findings, presence of black and blue hassan due to squeezing Neuro: Patient oriented x3, motor sensory intact, balance intact, tandem failed Extremities: Normal to inspection, right hip pain due to osteoarthritis [facility] Medical History Arthritis History of headache Anxiety Depression Elevated cholesterol History of COVID-19 Chest pain JOHN positive Chronic pain syndrome Postlaminectomy syndrome of lumbar region Postlaminectomy syndrome of cervical region Chronic GERD Periodic limb movement disorder Sleeping difficulty Sciatica, right side Asthma, moderate Constipation by delayed colonic transit Pre-diabetes DJD (degenerative joint disease) Lipid disorder Bursitis of right shoulder Right shoulder pain Spinal stenosis Back pain Fibromyalgia Degenerative disc disease Surgical History Status post total right knee replacement History of total right knee replacement History of lumbar fusion S/P placement of nerve stimulator History of sleeve gastrectomy History of esophagogastroduodenoscopy (EGD) H/O colonoscopy History of gastric bypass Hx of cholecystectomy H/O: hysterectomy H/O spinal fusion H/O shoulder surgery Family History Father No problems noted. Mother No problems noted. Other Mental health disorder Social History Household Members: Other Household Members Other:: son Housing: House Are you a primary care rep to a significant other at home: No Do you presently have visiting nurse or other home services: No Alcohol intake: current Alcohol intake frequency: holidays/special occasions only Comment: pts baseline pain is 6/10 Patient Tobacco Use Status: Former Tobacco user Tobacco use type: Cigarette Years Smoked: 30 e-Cigarette/Vaping Use: Never Used Second Hand Smoke Exposure: No Substance Use Type: Marijuana service: No Current occupational status: disabled Current occupation: right handed Cognitive needs: No Hearing needs: No Vision needs: Yes Questionnaire Thrive Questionnaire Date Thrive assessed: 10/15/24 I am a: Patient What is your living situation today?: I have a place to live, but I am worried about losing it in the future Within the past 12 months, did the food you bought not last and you didn't have the money to get more?: Sometimes True Within the past 12 months, did you worry whether your food would run out before you got money to buy more?: Never true Do you have trouble paying for medicines?: No Do you have trouble getting transportation to medical appointments?: No Do you have trouble paying your heating and electricity bill?: No Do you have trouble taking care of your child, family member or friend?: No Do you have trouble with day-to-day activities such as bathing, preparing meals, shopping, managing finances, etc.?: Yes Are you currently unemployed and looking for a job?: No Are you interested in more education?: No Please select the resources that you would like help with: None Currently or been in a relationship where the following occur: No concerns reported THRIVE Score: 2 CATARINA-7 AMB Questionnaire CATARINA-7 Date CATARINA - 7 assessed: 10/18/24 Source: Developed by Drs. Andrew Lamb, Julia Olivas, Alfonso Silva and colleagues, with an educational elvia from [employer]. Physical exam (Primary Care) Vital Signs: Last Vital Signs Temp 98.3 F 03/18/25 10:35 Pulse 83 03/18/25 10:35 Resp 16 03/18/25 10:35 BP 118/60 03/18/25 10:35 Pulse Ox 96 03/18/25 10:35 Oxygen Delivery Method Room Air 03/18/25 10:35 BMI result Body Mass Index 36.3 Tobacco/Smoking Status: Tobacco use Status Tobacco use date assessed 03/18/25 03/18/25 10:38 Patient Tobacco Use Status Former Tobacco user 03/18/25 10:38 Tobacco use type Cigarette 03/18/25 10:38 e-Cigarette/Vaping Use Never Used 03/18/25 10:38 Thrive Assessment: Date of Thrive Assessment Date Thrive assessed 10/15/24 03/18/25 10:38 Currently or been in a relationship where the following occur: No concerns reported Coding Level of Care Code Est Pt Level 3 (50371) Est Pt Prev Care >65y(20714) Diagnoses Encounter for general adult medical examination with abnormal findings Z00.01 Hip pain, bilateral M25.551; M25.552 Atherosclerosis I70.90 Lipid disorder E78.9 Pre-diabetes R73.03 Class 2 severe obesity due to excess calories with serious comorbidity and body mass index (BMI) of 38.0 to 38.9 in adult E66.01; Z68.38 Body mass index: BMI 38.0-38.9 Obesity classification: adult class 2 (BMI 35 - 39.9) Serious obesity comorbidity presence: with serious comorbidity Periodic limb movement disorder G47.61 Mild persistent asthma without complication J45.30 Asthma complication type: uncomplicated Anemia D64.9 Anxiety, generalized F41.1 Severe major depression F32.2 Assessment & Plan Assessment & Plan (1) Encounter for general adult medical examination with abnormal findings: Code(s): Z00.01 - Encounter for general adult medical examination with abnormal findings Category: Medical (2) Hip pain, bilateral: Code(s): M25.551 - Pain in right hip; M25.552 - Pain in left hip Category: Medical (3) Atherosclerosis: Code(s): I70.90 - Unspecified atherosclerosis Category: Medical (4) Lipid disorder: Code(s): E78.9 - Disorder of lipoprotein metabolism, unspecified Category: Medical (5) Pre-diabetes: Comment: Diet-controlled Code(s): R73.03 - Prediabetes Category: Medical (6) Obesity due to excess calories: Comment: Make healthy food choices . Eat lots of fruits, vegetables, whole grains, and low-fat dairy products. Limit the amount of meat and fried or fatty foods that you eat. Be active Walk, garden, or do something active for 30 minutes or more on most days of the week. If you smoke, stop smoking. Smoking increases the chance of heart attack or stroke, or develop cancer.If you are over weight, Lose weight, Being overweight increases the risk of many health problems. Avoid alcohol Alcohol can increase blood sugar and blood pressure. Code(s): E66.09 - Other obesity due to excess calories Category: Medical Qualifiers: Body mass index: BMI 38.0-38.9 Obesity classification: adult class 2 (BMI 35 - 39.9) Serious obesity comorbidity presence: with serious comorbidity Qualified Code(s): E66.01 - Morbid (severe) obesity due to excess calories; Z68.38 - Body mass index [BMI] 38.0-38.9, adult (7) Periodic limb movement disorder: Comment: Stable Code(s): G47.61 - Periodic limb movement disorder Category: Medical (8) Asthma, mild persistent: Code(s): J45.30 - Mild persistent asthma, uncomplicated Category: Medical Qualifiers: Asthma complication type: uncomplicated Qualified Code(s): J45.30 - Mild persistent asthma, uncomplicated (9) Anemia: Code(s): D64.9 - Anemia, unspecified Category: Medical (10) Anxiety, generalized: Code(s): F41.1 - Generalized anxiety disorder Category: Medical (11) Severe major depression: Comment: All psychiatric medications through Psychiatry 02/21/2024: Do not want to see him anymore patient is not happy with the care Taking only quetiapine and duloxetine 20 mg restarted Code(s): F32.2 - Major depressive disorder, single episode, severe without psychotic features Category: Medical Plan History of Present Illness The patient is a 64-year-old female presenting for physical exam patient has history of obesity with BMI of 36.3, history of multiple joint osteoarthritis History of right knee replacement surgery, vitamin-D deficiency, depression, lipid disorder History of right knee replacement, having appointment with orthopedic coming up Osteoarthritis of the hip: - The patient confirms having osteoarthritis in the hip area. - Pain in the right hip is described as persistent and aching. - Fuller is intermittent with periods of exacerbation and relief. - The patient denies any recent hip X-rays and agrees to have one ordered. Right hip pain: - The right hip pain is of increasing frequency and severity. - Reported difficulties in comfort during sitting or sleeping, regardless of position adjustments like hanging or stretching the leg. Anemia: - The patient's lab results indicated borderline anemia with a hemoglobin level of 11.9. Prediabetes: - No prior diagnosis of diabetes mellitus. - Family history includes diabetes mellitus in the patient's father and brother. - Lab results indicated fasting sugar at 136. - A1c level was tested at 6.0, indicating prediabetes. Allergic reaction to Celebrex: - Patient indicates an allergic reaction to Celebrex with symptoms of itching. - She states this was due to a sulfa component in the medication. Medical History: - Osteoarthritis - Borderline anemia - Prediabetes Surgical History: - Knee revision surgery Family History: - Father: Diabetes mellitus - Brother: Diabetes mellitus - Mother: Atrial Fibrillation - Younger brother: Myocardial infarction - Older brother: Coronary artery disease with quadruple bypass surgery Health Maintenance - Mammogram conducted in October - Up-to-date FINANCIAL SERVICES COUNSELOR visits - Last colonoscopy conducted in 2021 at [facility]; next recommended in 2031 - Normal EKG on January 08 [facility] - Orthopedic consultation scheduled for March 27 for knee recheck Medications - Tylenol, for general pain management - Vitamin D, for supplement - Lexapro 10 mg, for unspecified use - Simvastatin 40 mg, for hyperlipidemia - Oxycodone 5 mg, for pain management - Denied any use of Celebrex due to allergy Diagnostic results - Laboratory tests from December showed borderline anemia with hemoglobin at 11.9. - Fasting glucose was 136 mg/dL, suggesting prediabetes. - EKG in December demonstrated normal sinus rhythm. Patient Instructions - Discuss hip pain and possible management with crisis specialist. - Await x-ray results for further evaluation of hip condition. - controlled diet for paying prediabetic - If semaglutide is approved by insurance, contact office for administration instruction. - Maintain current medication regimen and inform provider if condition changes. - few tablets of oxycodone sent to be taken as needed for joint pain Follow-up 3 months, physical exam 1 year Orders: Orders XR hip BI w PEL1V Today M25.551 - Pain in right hip, M25.552 - Pain in left hip Medications: New semaglutide for 4 weeks 0.25 mg (0.368 mL) subcut QWEEK 2 mL 0RF 30 days E66.01 - Morbid (severe) obesity due to excess calories, E78.9 - Disorder of lipoprotein metabolism, unspecified, I70.90 - Unspecified atherosclerosis, R73.03 - Prediabetes, Z68.38 - Body mass index [BMI] 38.0-38.9, adult Refilled simvastatin 40 mg PO BEDTIME 90 tabs 2RF 90 days cholecalciferol (vitamin D3) 25 mcg PO DAILY 90 caps 1RF 90 days oxycodone Partial Fill upon patient request. 5 mg PO Q8H PRN 21 tabs 0RF pain 7 days Discontinued celecoxib Discontinued Reason: Doctor's Order 200 mg PO BID 30 days 60 caps 0RF
[2025-03-18 10:35] VITALS: BP 118/60; PULSE 83; RESP 16; TEMP 36.8; O2SAT 96; BMI 36.3
--- OUTSIDE RECORDS SUMMARY | 2025-03-18 11:17 | XMS_ITS | Encounter Summary ---
Author Organization [facility] Address [address] [place] [address] Phone Care Team Providers Care Spanish Translator Name Role Phone Carlos Alberto Briones Kay LITURGICAL MUSIC DIRECTOR Unavailable pwit Jimmy Davis MD Unavailable [phone] Amaya Harris MD Primary Care Provider [phone] Encounter Details Date Type Department Care Team (Late st Contact Info) Description 02/02/2022 Transcribe Orders Virtual Department [address] [place] [address] Carlito Marr MD [address] [place] [phone] [email or web address] Social History Tobacco Use Types Packs/Day Years [...] on file documented as of this encounter Visit Diagnoses Not on filedocumented in this encounter Care Teams Spanish Translator Relationship Specialty Start Date End Date Amaya Harris MD [address] [place] [address] PCP - General Internal Medicine 12/06/17 Carlos Alberto Briones CNP [email or web address] Historical LMR Provider 05/13/17 Jimmy Davis MD [address] [place] [phone] [email or web address] Historical LMR Provider 05/13/17 documented as of this encounter Additional Source Comments The information contained in this document represents components of the legal health record. It is not the complete legal health record.[facility]
--- OUTSIDE RECORDS SUMMARY | 2025-03-18 11:17 | XMS_ITS | Encounter Summary ---
Author Organization [facility] Address [address] [place] [address] Phone Care Team Providers Care Respite Coordinator Name Role Phone Carlos Alberto Briones Kay COMMERCIAL ENERGY RATER Unavailable pwit Jimmy Davis MD Unavailable Amaya Harris MD Primary Care Provider [phone] Encounter Details Date Type Department Care Team (Late st Contact Info) Description 10/28/2021 Procedure Pass [facility] Endoscopy Admitting Dept Virtual Department [address] [place] [address] Social History Tobacco Use Types Packs/Day Years [...] on filedocumented in this encounter Care Teams Respite Coordinator Relationship Specialty Start Date End Date Amaya Harris MD [facility] [place] [address] PCP - General Internal Medicine 12/06/17 Carlos Alberto Briones CNP Historical LMR Provider 05/13/17 Jimmy Davis MD [address] [place] [phone] [email or web address] Historical LMR Provider 05/13/17 documented as of this encounter Additional Source Comments The information contained in this document represents components of the legal health record. It is not the complete legal health record.[facility]
--- OUTSIDE RECORDS SUMMARY | 2025-03-18 11:17 | XMS_ITS | Encounter Summary ---
Author Organization [facility] Address [address] [place] [address] Phone Care Team Providers Care Drywall Mechanic Name Role Phone Carlos Alberto Briones Kay WORKSHOP MANAGER Unavailable [email or web address] Aamya Harris MD Unavailable Jimmy Davis MD Unavailable [phone] Amaya Harris MD Primary Care Provider [phone] Mihir Starkey MD Primary Care Provider Amaya Harris MD Primary Care Provider [phone] Encounter Details Date Type Department Care Team (Latest Contact Info) Description 06/19/2017 Ancillary Orders [facility], X-Ray - [address] [address] Angie Crawford, JEZ [address] [place] [address] [phone] [email or web address] Arthrodesis status; Lumbar radiculopathy Social History Tobacco Use Types Packs/Day Years [...] Results * XR LUMBOSACRAL SPINE 2-3 VIEWS (06/19/2017 11:16 AM EST) Anatomical Region Laterality Modality L-spine Radiographic Montserrat ging 06/19/2017 12:4 2 PM EST Impressions 06/19/2017 12:46 PM EST Changes of posterior spinal fusion at the lumbosacral junction without complication evident. POS - [id number] Narrative 06/19/2017 12:46 PM EST HISTORY: Radiculopathy. History of arthrodesis. COMPARISON: 08/04/2016 FINDINGS: 3 views of the lumbar spine are performed. New changes of posterior spinal fusion at the lumbosacral junction within intervertebral disc prosthesis. The hardware is intact without surrounding lucency to indicate loosening or infection. No new compression deformities or progressive disc space narrowing. No subluxation. Procedure Note Merrick Prieto MD - 06/19/2017 HISTORY: Radiculopathy. History of arthrodesis. COMPARISON: 08/04/2016 FINDINGS: 3 views of the lumbar spine are performed. New changes of posteriorspinal fusion at the lumbosacral junction within intervertebral discprosthesis. The hardware is intact without surrounding lucency toindicate loosening or infection. No new compression deformities orprogressive disc space narrowing. No subluxation. IMPRESSION: Changes of posterior spinal fusion at the lumbosacral junction withoutcomplication evident. POS - [id number] Angie STORY IMG XR SPINE Final Resul t documented in this encounter Visit Diagnoses Diagnosis Arthrodesis status Lumbar radiculopathy Thoracic or lumbosacral neuritis or radiculitis, unspecified Arthrodesis status Lumbar radiculopathy Thoracic or lumbosacral neuritis or radiculitis, unspecified documented in this encounter Care Teams Drywall Mechanic Relationship Specialty Start Date End Date Amaya Harris MD [address] [place] [address] PCP - General Internal Medicine 05/15/17 10/11/17 Mihir Starkey MD [address] [place] [address] [place] [address] PCP - General Internal Medicine 10/12/17 12/05/17 Amaya Harris MD [address] [place] [address] [place] [address] PCP - General Internal Medicine 12/06/17 Carlos Alberto Briones CNP [email or web address] Historical LMR Provider 05/13/17 Amaya Harris MD [address] [place] [address] [place] [address] Historical LMR Provider 05/13/17 2 Jimmy Davis MD [address] [place] [id number] [email or web address] Historical LMR Provider 05/13/17 documented as of this encounter Additional Source Comments The information contained in this document represents components of the legal health record. It is not the complete legal health record.[facility]
--- OUTSIDE RECORDS SUMMARY | 2025-03-18 11:17 | XMS_ITS | Clinical Summary ---
Author Organization [facility] Address [address] [place] [phone] Phone Care Team Providers Care Peritoneal Dialysis Registered Nurse Name Role Phone Carlos Alberto Briones Kay FACULTY HEAD Unavailable [email or web address] Jimmy Davis MD Unavailable Amaya Harris MD Primary Care Provider Allergies Active Allergy Reactions Criticality Noted Date Comments Adhesive Tape-Silicones Other (See Comments) Skin tears, blisters Carisoprodol Shortness Of Breath,Itching,Swell ing,Rash High 05/13/2017 Varenicline Other (See Comments) 05/20/2017 hallucinations Sulfamethoxazole-Trimet hoprim Shortness Of Breath,Itching,Swell ing,Rash High 05/13/2017 Medications simvastatin (ZOCOR) 40 MG tablet Take 40 mg by mouth daily. Active trolamine salicylate (ASPERCREME) 10 % cream Apply topically as needed. Active acetaminophen (TYLENOL) 325 mg tablet Take 2 tablets (650 mg total) by mouth every 6 (six) hours as needed for mild pain or fever. 0 7 Active omeprazole (PRILOSEC) 20 MG capsule 2 capsules Orally Once a day Active cyanocobalamin, vitamin B-12, 1,000 mcg TbER Take 1 tablet by mouth daily. 3 9 Active clonazePAM (KLONOPIN) 1 MG tablet Take 1 mg by mouth nightly at bedtime. at bedtime 2 9 Active umeclidinium (INCRUSE ELLIPTA) 62.5 mcg/actuation inhalation Inhale 62.5 mcg (1 puff total) into the lungs daily. 1 each 11 2 Active fluticasone propion-salmeter oL (AIRDUO RESPICLICK) 113-14 mcg/actuation inhaler Inhale 1 puff into the lungs 2 (two) times a day. 3 each 3 2 Active Additional Information Patient not taking.Reported on 06/15/2023 busPIRone (BUSPAR) 5 MG tablet Take 5 mg by mouth nightly at bedtime as needed. 2 Active ENBREL MINI 50 mg/mL (1 mL) subcutaneous injection 2 Active QUEtiapine (SEROQUEL) 25 MG tablet Take 25 mg by mouth nightly at bedtime. at bedtime. 2 Active naproxen (NAPROSYN) 500 MG tablet Take 1 tablet (500 mg total) by mouth 2 (two) times a day for 3 days. Then twice daily as needed for pain, inflammation 20 tablet 2 Active Active Problems Problem Noted Date Diagnosed Date Nausea and vomiting 09/24/2021 Assessment & Plan (09/24/2021 3:12 PM EST): Patient not eating due to low appetite and feeling of nausea and vomiting soon if she eats something. Describes her vomiting is clear even if it is right after eating something. Seems very unusual. Wonder if she has some sort of esophageal motility issue. I did refer her to Dr. Dunaway. Former smoker 09/24/2021 Assessment & Plan (09/24/2021 3:13 PM EST): Patient meets criteria for lung cancer screening study. Counseling provided. Syncope 04/12/2019 Assessment & Plan (04/12/2019 5:57 PM EDT): Patient with a diagnosis of orthostatic hypotension although her symptoms do not seem to be positional. Did recommend squatting and clenching fists. Perhaps the patient would benefit from compression stockings. In the meanwhile, I did want to be sure that she had a normal echocardiogram and a 30-day event monitor to rule out major cardiac pathology. Orthostatic hypotension 10/23/2018 Assessment & Plan (10/23/2018 11:43 AM EDT): Patient with presyncope recently. BP low. Recent gastric sleeve surgery. Liquid stools. Perhaps hypovolemic. No evidence of bleeding on exam or in stool. Will check CBC and BMP stat. Chronic eosinophilic pneumonia 01/10/2018 Assessment & Plan (12/06/2021 9:48 AM EDT): Stable. Diffusion capacity is improved. Hold off on further prednisone for now. Assessment & Plan (07/27/2018 1:34 PM EST): Stable holding on prednisone. Assessment & Plan (01/10/2018 1:18 PM EDT): A chest x-ray looked clear. Continue to hold oral steroids. We'll change back from Pulmicort to Symbicort as she noticed worsening in her dyspnea. Asthma 10/12/2017 Assessment & Plan (12/06/2021 9:47 AM EDT): Continue with air duo and Incruse. Pulmonary function tests are actually improved. Assessment & Plan (09/24/2021 3:13 PM EST): Restart the asthma medications: Air duo and Incruse. We will check full pulmonary function tests. Assessment & Plan (12/11/2019 11:26 AM EDT): Restart AirDuo Cont with Incruse. Assessment & Plan (04/12/2019 5:56 PM EDT): Continue air duo. Add Spiriva. Assessment & Plan (07/27/2018 1:35 PM EST): Continue with Symbicort. Patient advised to stick with this regimen. Assessment & Plan (10/12/2017 11:27 AM EDT): Add Pulmicort to Symbicort. Continue Montelukast. ILD (interstitial lung disease) 10/12/2017 Assessment & Plan (12/11/2019 11:36 AM EDT): On steroids for a rash. Biopsy pending. Plan for repeat PFTs in 6 months. Assessment & Plan (04/12/2019 5:56 PM EDT): Stable off of steroids. Repeat pulmonary function tests in 1 year. Assessment & Plan (10/12/2017 11:26 AM EDT): Will check CXR to confirm that eosinophillic PNA is improved. Will hold on adding systemic corticosteroids for now considering her recent back surgery. Hyperlipidemia 10/12/2017 Hoarseness 10/12/2017 GEORGIE (obstructive sleep apnea) 10/12/2017 Overview (10/12/2017): October 11: Initial study with 13 obstructive apneas and 40 hypopnias, CPAP titration trial with 3 obstructive apneas and 14 hypopneas on CPAP [id number], nasal mask of small size. Assessment & Plan (12/06/2021 9:48 AM EDT): Recommend BiPAP Assessment & Plan (12/11/2019 11:29 AM EDT): Still has BiPAP machine but hasn't used it since weight loss. Assessment & Plan (04/12/2019 5:55 PM EDT): Patient believes this is much better after weight loss. Wanted me to discontinue her BiPAP. I have referred back to [facility] for repeat sleep study off of any equipment to see whether or not we can completely discontinue her BiPAP. Assessment & Plan (10/23/2018 11:40 AM EDT): Patient not able to tolerate CPAP. Feels that she needs more air. OREO demonstrates 45 mins with O2 sat less than 88% on CPAP. Recommend BiPAP therapy at 18/10 with 2L entrained. Check OREO on new equipment. Assessment & Plan (07/27/2018 1:35 PM EST): Continue CPAP at 11 cm of water. Will check overnight oximetry to be sure that we do not need to entrain oxygen. Commended patient's weight loss and decision to have gastric sleeve surgery. Assessment & Plan (01/10/2018 1:18 PM EDT): Patient with some issues with leakage with her nasal CPAP mask. [facility] had mailed her her machine. Does not have any customer service. Hoping to switch to [facility] who cares for her and has been trying on different techniques and masks for him. Otherwise she's been using her mask every day and does feel better sleeps better and less tired during the day. Recommend weight loss. Has gained 14 pounds since her last visit due to the severe back pain and inactivity. Assessment & Plan (10/13/2017 4:37 PM EDT): As her PSG is fairly straightforward I will prescribe the CPAP mask and manage her GEORGIE for now. If we run into any trouble or complications I may refer to a sleep specialist in the future. The patient understands and is agreeable to this plan. CPAP ordered through [facility]. Left lumbosacral radiculopathy 05/24/2017 Radiculopathy of lumbosacral region 05/23/2017 Immunizations Immunization Administration Dates Next Due COVID-19 (Pre-05/15) Pfizer Vaccine, mRNA, PF 11/07/2020,10/17/2020 INFLUENZA, SPLIT VIRUS, TRIV ALENT W/ PRESERVATIVE IM 04/11/2012,04/01/2011,04/09/2010,07/02,04/25/2007,05/24/2006 Influenza Quadrivalent w/ Pr eservative IM 05/11/2018,03/10/2017 Influenza, Unspecified Formulation 03/13/2017 Pneumococcal polysaccharide PPSV23 02/20/2015 Td (adult),2 Lf Tetanus Toxo id, PF, Adsorbed 04/25/2005 Tdap 10/05/2011 Social History Tobacco Use Types Packs/Day Years Used Date Smoking Tobacco: Former Cigarettes Q uit: 2010 Smokeless Tobacco: Never Alcohol Use Standard Drinks/Week Comments Yes 0 (1 standard drink = 0.6 oz pur e alcohol) 1-2 drinks/month Education Answer Date Recorded Are you interested in more education? Not on doretha e 11/18/2022 Are you concerned about learning? Not on file 11/18/2022 No 11/18/2022 No 11/18/2022 Digital Access Answer Date Recorded No 12/19/2022 No 12/19/2022 Reliable internet access at home? Not on file 12/19/2022 Device with a working camera? Not on file Intimate Partner Violence Answer Date R ecorded Are you denied basic needs s uch as food, clothing, or medical care? No 06/15/2023 In the past 12 months have y ou been in a relationship with a person who hurts, threatens, or tries to control you? No 06/15/2023 Are you denied basic needs s uch as food, clothing, or medical care? No 06/15/2023 In the past 12 months have y ou been in a relationship with a person who hurts, threatens, or tries to control you? No 06/15/2023 Comments Unknown Sex and Gender Information Value Date Recorded Sex Assigned at Female 03/18/2021 10:58 AM EDT Legal Sex Female 4:04 PM EST Gender Identity Female 03/18/2021 10:58 AM EDT Sexual Orientation Straight 03/18/2021 10 :58 AM EDT Last Filed Vital Signs Vital Sign Reading Time Taken Comments Blood Pressure 114/96 06/15/2023 8:19 PM EST Pulse 76 06/15/2023 8:19 PM EST Temperature 36.7 C (98.1 F) 06/15/2023 8:19 PM EST Respiratory Rate 18 06/15/2023 8:19 PM EST Oxygen Saturation 98% 06/15/2023 8:19 PM EST Inhaled Oxygen Concentration - - Weight 90.7 kg (200 lb) 06/15/2023 3:46 PM EST Height 162.6 cm (5' 4 ) 06/15/2023 3:46 PM EST Body Mass Index 34.33 06/15/2023 3:46 PM EST Plan of Treatment Health Maintenance Due Date Last Done Comments LIPID PANEL 1959 DEPRESSION SCREENING 1971 SMOKING Hx and SMOKELESS TOBACCO SCREENING 1972 HEPATITIS C SCREENING 1977 HIV ONE-TIME SCREENING (18-6 5 YEARS) 1977 ZOSTER VACCINES (1 of 2) 1978 MAMMOGRAM 1999 COLOGUARD 2004 FIT TEST 2004 FOBT 2004 SIGMOIDOSCOPY 2004 VIRTUAL COLONOSCOPY 2004 PNEUMOCOCCAL VACCINES (50+ years) (2 of 2 - PCV) 02/21/2016 02/20/2015 RSV VACCINE (1 - Risk 60-74 years 1-dose series) 2019 Adult Td,Tdap Booster 10/04/2021 10/05/2011 , 04/25/2005 SCREENING FOR DIABETES 10/23/2021 10/23/2018 COVID-19 VACCINE (4 - 2023-2 5 season) 2024 05/22/2021, 11/07/2020, 10/17/2020 OSTEOPOROSIS SCREENING INITI AL (ONE-TIME) 2024 COLONOSCOPY 10/29/2031 10/28/2021 COLORECTAL CANCER SCREENING 10/29/2031 HEPATITIS A VACCINES Aged Out No long er eligible based on patient's age to complete this topic HIB VACCINES Aged Out No longer eligi ble based on patient's age to complete this topic MENINGOCOCCAL VACCINES (ACWY) Aged Out No longer eligible based on patient's age to complete this topic MENINGOCOCCAL VACCINES (B) Aged Out N o longer eligible based on patient's age to complete this topic Medical Devices Implanted Type Area Mutuel Clerk Device Identifier Shelf Expiration Date Model / Serial / Lot Filler Bone Sm Graft Demineralized Orthoblend Container 10ml Volume - [id number] Implanted:Qty: 1 on 05/23/2017 by Santos Daniels MD at [facility] STANDARD Back [employer] 01/02/2019 [id number] / / [id number] Neck Set Screw Sextant - [id number] Implanted:Qty: 4 on 05/23/2017 by Santos Daniels MD at [facility] Back [employer] [id number] / / Description:4 set screws Screw Spine Sextant 6.5x40mm - [id number] Implanted:Qty: 1 on 05/23/2017 by Santos Daniels MD at [facility] N/A: Back [employer] [id number] / [id number] / Bo Spinal Sextant 5.5x40mm - [id number] Implanted:Qty: 1 on 05/23/2017 by Santos Daniels MD at [facility] Back [employer] [id number] / [id number] / Description:35mm bo Bo Bone 5.5x35mm Spine Sextant Pre Bent Titanium - [id number] Implanted:Qty: 1 on 05/23/2017 by Santos Daniels MD at [facility] [employer] [id number] / [id number] / Description:35mm bo Screw Spine Sextant 6.5x45mm - [id number] Implanted:Qty: 2 on 05/23/2017 by Santos Daniels MD at [facility] [employer] [id number] / [id number] / Sextant Bone Screw 7.5 X 40 Implanted:Qty: 1 on 05/23/2017 by Santos Daniels MD at [facility] [employer] / [id number] / Spacer Capstone Peek 09x32 - [id number] Implanted:Qty: 1 on 05/23/2017 by Santos Daniels MD at [facility] Spine Lumbar [employer] 11/26/2022 [id number] / [id number] / [id number] Procedures Procedure Name Priority Date/Time Associated Diagnosis Comments ENDOSCOPY, COLON 10/28/2021 10:4 0 AM EDT from Last 3 Months or Most Recently Relevant to Health Maintenance Results * ENDOSCOPY, COLON (10/28/2021 10:40 AM EDT) Narrative Transcriptions Nae Marr MD - 10/28/2021 10:40 AM EDT Patient Name: Kaylah Palmerudreau Attending MD:: NAE MARR MD Procedure Date: 10/28/2021 10:40 AM Date of : 1960 Age: 61 Admit Type: Outpatient Gender: Female Room: [place] [address] Referring MD: Amaya Harris MD Exam Type: Colonoscopy Indications: Last colonoscopy: date unknown (unable to locatelast colonoscopy report), Last colonoscopy 5-10 yearsago, Change in bowel habits Medications: Propofol per Anesthesia Procedure: Informed consent was obtained from the patientafter discussion of the indications, limitations, alternatives, benefits, and risks of the procedure. Risks specifically discussed include but are not limited to medication reactions, missed lesions, bleeding, perforation, or the need for emergent surgery. Throughout the procedure, the patient's blood pressure, pulse, end-tidal CO2, and oxygensaturations were monitored continuously. The Olympus adult variable colonoscope [id number] #4 was introduced through the anus and advanced to the terminal ileum, with identification of theappendiceal orifice and IC valve. The terminal ileum, ileocecal valve, appendiceal orifice, and rectum were photographed. The colonoscopy was performed without difficulty. The patient tolerated the procedurewell. The quality of the bowel preparation was adequateto identify polyps but there was mucosal coating requiring regular washing. The bowel preparationused was Miralax in Gatoraide, 4 L. via split dose instruction. Complications: No immediate complications. Estimated blood loss:None. Findings: The perianal and digital rectal examinations were normal. Pertinent negatives include no palpablerectal lesions. The retroflexed view of the distal rectum and anal verge was normal and showed no anal or rectal abnormalities. A few small-mouthed diverticula were found in the sigmoid colon. The exam was otherwise without abnormality. The terminal ileum appeared normal. Retroflexion in the right colon was performed. Impression: - The distal rectum and anal verge are normal on retroflexion view. - Diverticulosis in the sigmoid colon. - The examination was otherwise normal. - The examined portion of the ileum was normal. - No specimens collected. Recommendation: - Use fiber, for example Citrucel, Fibercon, Konsylor Metamucil. Start with 1 tablespoon daily in wanteror juice. If no significant improvement in 1-2 weeks, increase to2X/d. - Repeat colonoscopy in 5 years for screeningpurposes. NAE MARR MD 10/28/2021 11:30:04 AM This report has been signed electronically. Number of Addenda: 0 Note Initiated On: 10/28/2021 10:40 AM Procedure Code(s): --- Professional --- 37534, Colonoscopy, flexible; diagnostic, including collection of specimen(s) by brushing or washing, when performed (separateprocedure) --- Technical --- 77305, Colonoscopy, flexible; diagnostic, including collection of specimen(s) by brushing or washing, when performed (separateprocedure) Diagnosis Code(s): --- Professional --- R19.4, Change in bowel habit K57.30, Diverticulosis of large intestine without perforation or abscess without bleeding --- Technical --- R19.4, Change in bowel habit K57.30, Diverticulosis of large intestine without perforation or abscess without bleeding CPT copyright 2020 [employer]. All rights reserved. The codes documented in this report are preliminary and upon slasher hand reviewmay be revised to meet current compliance requirements. Procedure Date: 10/28/2021 10:40:12 AM [address] [place] [address] Amaya Harris MD GI PROCEDURE ORDERABLES Final Re sult from Last 3 Months or Most Recently Relevant to Health Maintenance Insurance MEDICARE PART A [place] MEDICARE PART A & [place] & B HEALTH MITZI YADAV [id number] MEDIC[place] [id number] MEDICARE PART [place] [id number] MEDICARE PART [place] & B [facility] Advance Directives For more information, please contact: [phone] (9AM - 5PM Zoey/[facility], Monday-Monday) * Full Code (Presumed) (Latest Code Status on File) Date Activated Date Inactivated Comments 05/23/2017 4:19 PM 05/26/2017 6:49 PM Care Teams Peritoneal Dialysis Registered Nurse Relationship Specialty Start Date End Date Amaya Harris MD [address] [facility] [place] [address] PCP - General Internal Medicine 12/06/17 Carlos Alberto Briones, RAJAN [email or web address] Historical LMR Provider 05/13/17 Jimmy Davis MD [address] [place] [address] [email or web address] Historical LMR Provider 05/13/17 Additional Source Comments The information contained in this document represents components of the legal health record. It is not the complete legal health record.[facility]
--- OUTSIDE RECORDS SUMMARY | 2025-03-18 11:17 | XMS_ITS | Encounter Summary ---
Author Organization [facility] Address [address] [place] [address] Phone Care Team Providers Care Fence Maker Name Role Phone Carlos Alberto Briones Kay [employer] AIRCREWMAN Unavailable pwit Jimmy Davis MD Unavailable [phone] Amaya Harris MD Primary Care Provider [phone] Encounter Details Date Type Department Care Team (Late st Contact Info) Description 02/16/2022 Transcribe Orders Virtual Department [address] [place] [address] Carlito Marr MD [address] [place] [id number] [email or web address] Social History Tobacco Use [...] on filedocumented in this encounter Care Teams Fence Maker Relationship Specialty Start Date End Date Amaya Harris MD [address] [place] [address] PCP - General Internal Medicine 12/06/17 Carlos Alberto Briones CNP [email or web address] Historical LMR Provider 05/13/17 Jimmy Davis MD [address] [place] [address] [email or web address] Historical LMR Provider 05/13/17 documented as of this encounter Additional Source Comments The information contained in this document represents components of the legal health record. It is not the complete legal health record.[facility]
--- OUTSIDE RECORDS SUMMARY | 2025-03-18 11:17 | XMS_ITS | Encounter Summary ---
Author Organization [facility] Address [address] [place] [address] Phone Care Team Providers Care Mechanical Maintenance Engineer Name Role Phone Carlos Alberto Briones Kay PURCHASING INTERN Unavailable pwit Jimmy Davis MD Unavailable [phone] Amaya Harris MD Primary Care Provider [phone] Encounter Details Date Type Department Care Team (Late st Contact Info) Description 09/24/2021 Procedure [facility], Ct Scan - [address] [address] Social History Tobacco Use Types Packs/Day Years [...] on filedocumented in this encounter Care Teams Mechanical Maintenance Engineer Relationship Specialty Start Date End Date Amaya Harris MD [facility] [place] [address] PCP - General Internal Medicine 12/06/17 Carlos Alberto Briones, RAJAN Historical LMR Provider 05/13/17 Jimmy Davis MD [address] [place] [address] [email or web address] Historical LMR Provider 05/13/17 documented as of this encounter Additional Source Comments The information contained in this document represents components of the legal health record. It is not the complete legal health record.[facility]
--- OUTSIDE RECORDS SUMMARY | 2025-03-18 11:17 | XMS_ITS | Encounter Summary ---
Author Organization [facility] Address [address] [place] [address] Phone Care Team Providers Care Public Address System Operator Name Role Phone Edyta Brionesediemariah Kay CRYOGENICS ENGINEER Unavailable [email or web address] Amaya Harris MD Unavailable Jimmy Davis MD Unavailable [phone] Amaya Harris MD Primary Care Provider [phone] Mihir Starkey MD Primary Care Provider Amaya Harris MD Primary Care Provider [phone] Encounter Details Date Type Department Care Team (Late st Contact Info) Description 05/23/2017 Procedure Pass OR Admitting Dept - [facility] Department [address] [place] [address] Social History Tobacco Use Types Packs/Day Years Used Date Smoking Tobacco: Former Cigarettes Q uit: 2011 Smokeless Tobacco: Never Alcohol Use Standard Drinks/Week [...] on filedocumented in this encounter Care Teams Public Address System Operator Relationship Specialty Start Date End Date Amaya Harris MD [address] [place] [address] [place] [address] PCP - General Internal Medicine 05/15/17 10/11/17 Mihir Starkey MD [address] [place] [address] [place] [address] PCP - General Internal Medicine 10/12/17 12/05/17 Amaya Harris MD [address] [place] [address] [place] [address] PCP - General Internal Medicine 12/06/17 Carlos Alberto Briones CNP [email or web address] Historical LMR Provider 05/13/17 Amaya Harris MD [address] [place] [address] [place] [address] Historical LMR Provider 05/13/17 2 Jimmy Davis MD [address] [place] [address] [email or web address] Historical LMR Provider 05/13/17 documented as of this encounter Additional Source Comments The information contained in this document represents components of the legal health record. It is not the complete legal health record.[facility]
--- OUTSIDE RECORDS SUMMARY | 2025-03-18 11:17 | XMS_ITS | Encounter Summary ---
Author Organization [facility] Address [address] [place] [address] Phone Care Team Providers Care It Generalist Name Role Phone Carlos Alberto Briones Kay SUPPORT TECHNICIAN Unavailable [email or web address] Jimmy Davis MD Unavailable [phone] Amaya Harris MD Primary Care Provider [phone] Encounter Details Date Type Department Care Team (Latest Contact Info) Description 02/18/2022 Transcribe Orders Virtual Department [address] [place] [address] Carlito Marr MD [address] [place] [address] [email or web address] Loose stools (Primary Dx); Nausea and vomiting, unspecified vomiting type Social History Tobacco Use Types Packs/Day Years [...] documented as of this encounter Results * FL UGI SERIES SINGLE CONTRAST AND SMALL BOWEL (03/31/2022 10:34 AM EDT) Anatomical Region Laterality Modality Abdomen Computed Radiogr aphy 03/31/2022 12:3 8 PM EDT Impressions 03/31/2022 12:46 PM EDT Small sliding-type hiatal hernia with post-surgical change of prior gastric bypass but no significant esophageal, gastric, or small bowel mucosal pathology apparent. Slightly rapid intestinal transit time. Minimal epiglottic penetration of contrast without kellen aspiration. FLUOROSCOPY TIME: 2 min. 14 sec; 44 IMAGES/FRAMES POS - [id number] Narrative 03/31/2022 12:46 PM EDT COMPARISON: None FINDINGS: A preliminary view of the abdomen reveals an unremarkable bowel gas scattered with multiple surgical clips consistent with prior gastric bypass, surgical hardware consistent with prior lower lumbar fusion, and neurostimulator wires extending from the right lower quadrant the level of the T9 body. As the patient reports previous negative upper endoscopy a single contrast study was performed. Following ingestion of the contrast mixture deglutition was assessed fluoroscopically and recorded on rapid sequence images. There was an episode of minimal epiglottic penetration which cleared rapidly and did not extend to the vocal folds nor cause a cough reflex. No cricopharyngeal achalasia or nasopharyngeal reflux demonstrated. No spontaneous gastroesophageal reflux or gross esophageal mucosal ulceration or stricture present. Small sliding-type hiatal hernia elicited during a prone Valsalva maneuver. Residual stomach lumen fills well, without gross abnormality of the rugal pattern, marginal ulcerations, or evidence of surgical margin leak. Duodenal cap unremarkable in appearance. Serial overhead views were obtained as barium progressed throughout the small bowel. Transit time to colon was slightly rapid at approximately 30 minutes but no abnormality of peristaltic motion was detected on direct fluoroscopic observation. Visualized portions of the distal duodenum, jejunum, and ileum displayed normal caliber and fold patterns. Spot compression views of the terminal ileum were slightly limited due to overlying hardware but no significant mucosal pathology was demonstrated. Procedure Note Carlito Britton MD - 03/31/2022 COMPARISON: None FINDINGS: A preliminary view of the abdomen reveals an unremarkable bowel gasscattered with multiple surgical clips consistent with prior gastricbypass, surgical hardware consistent with prior lower lumbar fusion, andneurostimulator wires extending from the right lower quadrant the level ofthe T9 body. As the patient reports previous negative upper endoscopy a single contraststudy was performed. Following ingestion of the contrast mixturedeglutition was assessed fluoroscopically and recorded on rapid sequenceimages. There was an episode of minimal epiglottic penetration whichcleared rapidly and did not extend to the vocal folds nor cause a coughreflex. No cricopharyngeal achalasia or nasopharyngeal refluxdemonstrated. No spontaneous gastroesophageal reflux or gross esophagealmucosal ulceration or stricture present. Small sliding-type hiatal herniaelicited during a prone Valsalva maneuver. Residual stomach lumen fills well, without gross abnormality of the rugalpattern, marginal ulcerations, or evidence of surgical margin leak.Duodenal cap unremarkable in appearance. Serial overhead views wereobtained as barium progressed throughout the small bowel. Transit time tocolon was slightly rapid at approximately 30 minutes but no abnormality ofperistaltic motion was detected on direct fluoroscopic observation.Visualized portions of the distal duodenum, jejunum, and ileum displayednormal caliber and fold patterns. Spot compression views of the terminalileum were slightly limited due to overlying hardware but no significantmucosal pathology was demonstrated. IMPRESSION: Small sliding-type hiatal hernia with post-surgical change of priorgastric bypass but no significant esophageal, gastric, or small bowelmucosal pathology apparent. Slightly rapid intestinal transit time.Minimal epiglottic penetration of contrast without kellen aspiration. FLUOROSCOPY TIME: 2 min. 14 sec; 44 IMAGES/FRAMES POS - [id number] Carlito Marr MD [facility] Final Resu lt documented in this encounter Visit Diagnoses Diagnosis Loose stools- Primary Abnormal feces Nausea and vomiting, unspecified vomiting type Loose stools Abnormal feces Nausea and vomiting, unspecified vomiting type documented in this encounter Care Teams It Generalist Relationship Specialty Start Date End Date Amaya Harris MD [address] [place] [address] [place] [address] PCP - General Internal Medicine 12/06/17 Carlos Alberto Briones CNP Historical LMR Provider 05/13/17 Jimmy Davis MD [address] [place] [address] [email or web address] Historical LMR Provider 05/13/17 documented as of this encounter Additional Source Comments The information contained in this document represents components of the legal health record. It is not the complete legal health record.[facility]
--- OUTSIDE RECORDS SUMMARY | 2025-03-18 11:17 | XMS_ITS | Encounter Summary ---
Author Organization [facility] Address [address] [place] [address] Phone Care Team Providers Care Supervisor Telephone Information Name Role Phone AnselmoCarlos Alberto GLOBAL MARKETING OPERATIONS MANAGER Unavailable [email or web address] Amaya Harris MD Unavailable Jimmy Davis MD Unavailable [phone] Amaya Harris MD Primary Care Provider Encounter Details Date Type Department Care Team (Late st Contact Info) Description 12/06/2017 Ancillary Orders [facility], -[address] [address] Santos Daniels MD [address] [place] [address] [email or web address] Fusion of spine of lumbar [...] region documented in this encounter Care Teams Supervisor Telephone Information Relationship Specialty Start Date End Date Amaya Harris MD [address] [facility] [place] [address] PCP - General Internal Medicine 12/06/17 Carlos Alberto Briones RAJAN [email or web address] Historical LMR Provider 05/13/17 Amaya Harris MD [address] [place] [address] [place] [address] Historical LMR Provider 05/13/17 2 Jimmy Davis MD [address] [place] [address] [email or web address] Historical LMR Provider 05/13/17 documented as of this encounter Additional Source Comments The information contained in this document represents components of the legal health record. It is not the complete legal health record.[facility]
--- OUTSIDE RECORDS SUMMARY | 2025-03-18 11:17 | XMS_ITS | Patient Health Record ---
Author Organization [facility] Address [address] [place] [address] Care Team Providers Care Compensation Coordinator Name Role Phone Steven MILLIGNA, Asma Primary Care Provider Andrew Dennis [phone] Allergies Allergen (clinical drug ingredient) Drug/Non Drug Allergy documented on EMR Reaction Allergy Type Onset Date Status carisoprodol Soma Unknown Drug Allergy Acti ve sulfamethoxazole / trimethoprim Bactrim Unknown Drug Allergy Active Reason For Referral No Information Medications Medication SIG (Take, Route, Frequency, Duration) Notes Start Date End Date Status Simvastatin 40 MG Orally Ac tive Omeprazole 20 MG TAKE 1 [facility] A DAY for 90 Active [...] W/U Status Risk Notes Problem Epigastric pain (41972490) Epigastric abdominal pain (R10.13) Active confirmed Problem Irritable bowel syndrome (08202128) Irritable bowel syndrome (K58.9) Active confirmed Problem 673509334 Valverde's esophagus without dysplasia (K22.70) Active confirmed Problem Early satiety (914673161) Early satiety (R68.81) Active confirmed Problem Gastroesophageal reflux disease (988800247) GERD (gastroesophage al reflux disease) (K21.9) Active confirmed Problem Vomiting (024889096) Vomiting (R11.10) Active confirmed Problem 871976345 Irritable bowel syndrome with constipation (K58.1) Active [...] OF [place] [address] JOE LAYNECHINTANSIVAN [phone] [id number] FARHAN PETERSON Self - patient is the insured MEDICAID OF [facility] [address] [place] [phone] [id number] FARHAN PETERSON Self - patient is the insured Medical (General) History Medical History History ICD Code Chronic neck and back pain from degenera tive disc disease Denies SD,DM,CVA,renal disease Asthma Fibromyalgia Distant hx of stomach [...]
--- OUTSIDE RECORDS SUMMARY | 2025-03-18 11:17 | XMS_ITS | Encounter Summary ---
Author Organization [facility] Address [address] [place] [address] Phone Care Team Providers Care Hydroelectric Station Operator Chief Name Role Phone Carlos Alberto Briones Kay INCIDENT ANALYST Unavailable [email or web address] Amaya Harris MD Unavailable Jimmy Davis MD Unavailable [phone] Amaya Harris MD Primary Care Provider [phone] Encounter Details Date Type Department Care Team (Latest Contact Info) Description 10/03/2019 Transcribe Orders Virtual Department [address] [place] [address] Nirali Barrientos, DOUBLE BACK OPERATOR [address] [place] [phone] [email or web address] Postlaminectomy syndrome, not elsewhere classified (Primary Dx) Social History Tobacco Use Types Packs/Day Years [...] this encounter Results * XR LUMBOSACRAL SPINE 4 OR MORE VIEWS (10/07/2019 10:26 AM EDT) Anatomical Region Laterality Modality L-spine Radiographic [place]serrat ging 10/07/2019 10:3 2 AM EDT Impressions 10/07/2019 10:49 AM EDT Postoperative change with no evidence of lumbar vertebral fracture. POS - [id number] Narrative 10/07/2019 10:49 AM EDT XR LUMBOSACRAL SPINE 4 OR MORE VIEWS CLINICAL HISTORY: + PAIN IN LOW BACK [SIGN/SX]. PATIENT HAS WORSENING LOW BACK PAIN , NO RADIATING SIGNS ON LAST EXAM. HER LAST IMAGING LUMBAR CT 03/05/18, DEMONSTRATES SOLID FUSION AT THE L5-S1 LEVEL IN THE INTERBODY SPACE AND FACET JOINT REGION. PLEASE EVALUATE FOR INTERVAL CHANGE.. COMPARISON: Lumbar spine radiographs dated 12/06/2017, 06/12 02/06 and 08/04/2016. 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 Numbering system is based upon initial imaging available, dated 08/04/2016, for consistency sake. The patient is status post discectomy and fusion of L4 and the partially sacralized L5, fixated with bilateral transpedicular screws and vertical paraspinal rods. The hardware appears intact. The lumbar vertebral bodies are normal in height without evidence of fracture. No evidence of spondylo-listhesis. Remaining lumbar intervertebral disc space heights appear maintained. There is degenerative change in the lower thoracic spine with anterior osteophytes. No locked or jumped facets. Multiple surgical clips are seen in the left upper quadrant and midline upper abdomen. Procedure Note Jennie Talbert MD - 10/07/2019 XR LUMBOSACRAL SPINE 4 OR MORE VIEWS CLINICAL HISTORY: + PAIN IN LOW BACK [SIGN/SX]. PATIENT HAS WORSENINGLOW BACK PAIN , NO RADIATING SIGNS ON LAST EXAM. HER LAST IMAGING LUMBARCT 03/05/18, DEMONSTRATES SOLID FUSION AT THE L5-S1 LEVEL IN THE INTERBODYSPACE AND FACET JOINT REGION. PLEASE EVALUATE FOR INTERVAL CHANGE.. COMPARISON: Lumbar spine radiographs dated 12/06/2017, 06/12 02/06 and08/04/2016. 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 The patient is status post discectomy and fusion ofL4 and the partially sacralized L5, fixated with bilateral transpedicularscrews and vertical paraspinal rods. The hardware appears intact. Thelumbar vertebral bodies are normal in height without evidence of fracture.No evidence of spondylo-listhesis. Remaining lumbar intervertebral disc space heights appear maintained.There is degenerative change in the lower thoracic spine with anteriorosteophytes. No locked or jumped facets. Multiple surgical clips are seen in the left upper quadrant and midlineupper abdomen. IMPRESSION: Postoperative change with no evidence of lumbar vertebral fracture. POS - [id number] Nirali Barrientos DOUBLE BACK OPERATOR IMG XR SPINE Final Result documented in this encounter Visit Diagnoses Diagnosis Postlaminectomy syndrome, not elsewhere classified- Primary Postlaminectomy syndrome, not elsewhere classified documented in this encounter Care Teams Hydroelectric Station Operator Chief Relationship Specialty Start Date End Date Amaya Harris MD [address] [place] [address] PCP - General Internal Medicine 12/06/17 Carlos Alberto Briones CNP Historical LMR Provider 05/13/17 Amaay Harris MD [address] [place] [address] Historical LMR Provider 05/13/17 2 Jimmy Davis MD [address] [place] [address] Historical LMR Provider 05/13/17 documented as of this encounter Additional Source Comments The information contained in this document represents components of the legal health record. It is not the complete legal health record.[facility]
--- OUTSIDE RECORDS SUMMARY | 2025-03-18 11:17 | XMS_ITS | Encounter Summary ---
Author Organization [facility] Address [address] [place] [address] Phone Care Team Providers Care Spinner Fixer Name Role Phone Carlos Alberto Briones Kay PLASTERER APPRENTICE Unavailable [email or web address] Amaya Harris MD Unavailable Jimmy Davis MD Unavailable [phone] Amaya Harris MD Primary Care Provider [phone] Mihir Starkey MD Primary Care Provider Amaya Harris MD Primary Care Provider [phone] Encounter Details Date Type Department Care Team (Late st Contact Info) Description 05/23/2017 Procedure Pass [facility] Imaging [address] [place], [place] [id number] Social History Tobacco Use Types Packs/Day Years Used Date Smoking Tobacco: Never Assessed Comments Unknown Sex and Gender Information Value [...] on filedocumented in this encounter Care Teams Spinner Fixer Relationship Specialty Start Date End Date Amaya Harris MD [facility] [place] [address] PCP - General Internal Medicine 05/15/17 10/11/17 Mihir Starkey MD [address] [place] [address] [place] [address] PCP - General Internal Medicine 10/12/17 12/05/17 Amaya Harris MD [address] [place] [address] [place] [address] PCP - General Internal Medicine 12/06/17 Carlos Alberto Briones CNP [email or web address] Historical LMR Provider 05/13/17 Amaya Harris MD [address] [place] [address] [place] [address] Historical LMR Provider 05/13/17 2 Jimmy Davis MD [address] [place] [address] [email or web address] Historical LMR Provider 05/13/17 documented as of this encounter Additional Source Comments The information contained in this document represents components of the legal health record. It is not the complete legal health record.[facility]
--- OUTSIDE RECORDS SUMMARY | 2025-03-18 11:17 | XMS_ITS | Encounter Summary ---
Author Organization [facility] Address [address] [place] [address] Phone Care Team Providers Care Senior Packaging Engineer Name Role Phone Carlos Alberto Briones Kay CASH MANAGEMENT ASSOCIATE Unavailable [email or web address] Jimmy Davis MD Unavailable [phone] Amaya Harris MD Primary Care Provider [phone] Encounter Details Date Type Department Care Team (Latest Contact Info) Description 10/27/2021 Transcribe Orders Virtual Department [address] [place] [address] Kaleigh Salgado NP [address] [place] [address] [phone] Pre-procedure lab exam (Primary Dx) Social History Tobacco Use Types [...] documented as of this encounter Visit Diagnoses Diagnosis Pre-procedure lab exam- Primary Pre-procedural laboratory examination documented in this encounter Care Teams Senior Packaging Engineer Relationship Specialty Start Date End Date Amaya Harris MD [address] [facility] [address] PCP - General Internal Medicine 12/06/17 Carlos Alberto Briones CNP Historical LMR Provider 05/13/17 Jimmy Davis MD [address] [place] [address] [email or web address] Historical LMR Provider 05/13/17 documented as of this encounter Additional Source Comments The information contained in this document represents components of the legal health record. It is not the complete legal health record.[facility]
== END 2025-03-18 10:59 | disposition home or self-care (01) ==
LOC: HO.HMCC 10:31
PROVIDERS: PCP Internal Medicine; Visit Provider Internal Medicine
DX: Z00.01 Encounter for general adult medical examination with abnormal findings (principal); F32.2 Major depressive disorder, single episode, severe without psychotic features; E66.01 Morbid (severe) obesity due to excess calories; Z68.38 Body mass index [BMI] 38.0-38.9, adult; M25.551 Pain in right hip; M25.552 Pain in left hip; I70.90 Unspecified atherosclerosis; E78.9 Disorder of lipoprotein metabolism, unspecified; R73.03 Prediabetes; J45.30 Mild persistent asthma, uncomplicated; G47.61 Periodic limb movement disorder; D64.9 Anemia, unspecified

== ENCOUNTER → 2025-03-18 11:07 | Outpatient (BNV) | payer MEDICARE, MEDICAID, SELFPAY | PROVIDERS: PCP Internal Medicine; Visit Provider Radiology Diagnostic Radiology | DX: M25.551 Pain in right hip (principal) | CPT/HCPCS: 73521 ==

== ENCOUNTER 2025-03-27 09:19 | Outpatient (AMB) | payer MEDICARE, MEDICAID, SELFPAY ==
--- NOTE | 2025-03-27 09:25 | A.OFFVIS_ITS ---
Intake Visit Reasons: PO- R TKA Revision w/NE 01/08/25 Intake Note: Kaylah is a 64 year old female who presents today for a post operative visit about 6 weeks s/p Right TKA 06/28/2022 with Right TKA Revision 01/08/25. At her last visit she reported that she was having continued difficulty with increased swelling and tightness of the knee which affects her ability to walk long distances. She continues to work with [facility] - they mention that her swelling is limiting her ability to progress in PT. Patient reports that she is having intermittent pain, her primary concern is the swelling. Reports a fall last week, while walking in the back yard she stepped in a hole causing her knee to twist resulting in a fall. She iced and rested after the injury but has been improving. Allergies adhesive tape (ADHESIVE TAPE) Allergy (Severe, Verified 03/18/25 10:38) SKIN TEARS pramipexole Allergy (Severe, Verified 03/18/25 10:38) Diarrhea adalimumab (From Humira) Allergy (Intermediate, Verified 03/18/25 10:38) Itching carisoprodol (From SOMA) Allergy (Intermediate, Verified 03/18/25 10:38) SWELLING, RASH cephalexin Allergy (Intermediate, Verified 03/18/25 10:38) Itching gabapentin Allergy (Intermediate, Verified 03/18/25 10:38) leg swelling sulfamethoxazole (From BACTRIM) Allergy (Intermediate, Verified 03/18/25 10:38) SWELLING,RASH trimethoprim (From BACTRIM) Allergy (Intermediate, Verified 03/18/25 10:38) SWELLING,RASH HPI HPI PO- R TKA Revision w/NE 01/08/25: Details: Kaylah is a 64 year old female who presents today for a post operative visit about 6 weeks s/p Right TKA 06/28/2022 with Right TKA Revision 01/08/25. At her last visit she reported that she was having continued difficulty with increased swelling and tightness of the knee which affects her ability to walk long distances. She continues to work with [facility] - they mention that her swelling is limiting her ability to progress in PT. Patient reports that she is having intermittent pain, her primary concern is the swelling. Reports a fall last week, while walking in the back yard she stepped in a hole causing her knee to twist resulting in a fall. She iced and rested after the injury but has been improving. [facility] Medical History Arthritis History of headache Anxiety Depression Elevated cholesterol History of COVID-19 Chest pain JOHN positive Chronic pain syndrome Postlaminectomy syndrome of lumbar region Postlaminectomy syndrome of cervical region Chronic GERD Periodic limb movement disorder Sleeping difficulty Sciatica, right side Asthma, moderate Constipation by delayed colonic transit Pre-diabetes DJD (degenerative joint disease) Lipid disorder Bursitis of right shoulder Right shoulder pain Spinal stenosis Back pain Fibromyalgia Degenerative disc disease Surgical History Status post total right knee replacement History of total right knee replacement History of lumbar fusion S/P placement of nerve stimulator History of sleeve gastrectomy History of esophagogastroduodenoscopy (EGD) H/O colonoscopy History of gastric bypass Hx of cholecystectomy H/O: hysterectomy H/O spinal fusion H/O shoulder surgery Family History Father No problems noted. Mother No problems noted. Other Mental health disorder Social History Household Members: Other Household Members Other:: son Housing: House Are you a primary rn complex care to a significant other at home: No Do you presently have visiting nurse or other home services: No Alcohol intake: current Alcohol intake frequency: holidays/special occasions only Comment: pts baseline pain is 6/10 Patient Tobacco Use Status: Former Tobacco user Tobacco use type: Cigarette Years Smoked: 30 e-Cigarette/Vaping Use: Never Used Second Hand Smoke Exposure: No Substance Use Type: Marijuana service: No Current occupational status: disabled Current occupation: right handed Cognitive needs: No Hearing needs: No Vision needs: Yes Physical Exam Extrem Other: Incision clean dry and intact 0-125 degrees of motion Stable to varus and valgus stress Assessment & Plan Assessment & Plan (1) Status post total knee replacement, right: Code(s): Z96.651 - Presence of right artificial knee joint Category: Surgical Plan: Status post knee replacement. Doing very well. Follow up 9-12 months Discussed dental prophylaxis Coding Level of Care Code Global (34657) Diagnoses Status post total knee replacement, right Z96.651
--- OUTSIDE RECORDS SUMMARY | 2025-03-27 10:00 | XMS_ITS | Encounter Summary ---
Author Organization [facility] Address [address] [place] [address] Phone Care Team Providers Care Closer On Name Role Phone AnselmoEdyta [email or web address] Kay MAINTENANCE ENGINEER Unavailable Amaya Harris MD Unavailable Jimmy Davis MD Unavailable Amaya Harris MD Primary Care Provider [phone] Encounter Details Date Type Department Care Team (Late st Contact Info) Description 12/06/2017 Ancillary Orders [facility], X-Ray - [address] [address] Santos Daniels MD [address] [place] [address] [email or web address] Fusion of spine of lumbar region Social [...] region documented in this encounter Care Teams Closer On Relationship Specialty Start Date End Date Amaya Harris MD [address] [facility] [place] [address] PCP - General Internal Medicine 12/06/17 Carlos Alberto Briones, RAJAN Historical LMR Provider 05/13/17 Amaya Harris MD [facility] [place] [address] Historical LMR Provider 05/13/17 2 Jimmy Davis MD [address] [place] [address] [email or web address] Historical LMR Provider 05/13/17 documented as of this encounter Additional Source Comments The information contained in this document represents components of the legal health record. It is not the complete legal health record.[facility]
--- OUTSIDE RECORDS SUMMARY | 2025-03-27 10:00 | XMS_ITS | Encounter Summary ---
Author Organization [facility] Address [address] [place] [address] Phone Care Team Providers Care Pasting Machine Offbearer Name Role Phone Carlos Alberto Briones CONTROLS PROJECT ENGINEER Unavailable Jimmy Davis MD Unavailable Amaya Harris MD Primary Care Provider Encounter Details Date Type Department Care Team (Latest Contact Info) Description 02/18/2022 Transcribe Orders Virtual Department [address] [place] [address] Carlito Marr MD [address] [place] [address] [email or web address] Loose stools (Primary Dx); Nausea and vomiting, [...] min. 14 sec; 44 IMAGES/FRAMES POS - [id number] Narrative 03/31/2022 12:46 PM EDT COMPARISON: None [...] min. 14 sec; 44 IMAGES/FRAMES POS - [id number] Carlito Marr MD [facility] Final Resu lt documented in this encounter Visit Diagnoses Diagnosis Loose stools- Primary Abnormal feces Nausea and vomiting, unspecified vomiting type Loose stools Abnormal feces Nausea and vomiting, unspecified vomiting type documented in this encounter Care Teams Pasting Machine Offbearer Relationship Specialty Start Date End Date Amaya Harris MD [address] [place] [address] [place] [address] PCP - General Internal Medicine 12/06/17 Carlos Alberto Briones CNP [email or web address] Historical LMR Provider 05/13/17 Jimmy Davis MD [address] [place] [address] [email or web address] Historical LMR Provider 05/13/17 documented as of this encounter Additional Source Comments The information contained in this document represents components of the legal health record. It is not the complete legal health record.[facility]
--- OUTSIDE RECORDS SUMMARY | 2025-03-27 10:00 | XMS_ITS | Clinical Summary ---
Author Organization [facility] Address [address] [place] [address] Phone Care Team Providers Care Cardiovascular Invasive Specialist Name Role Phone Carlos Alberto Briones BOTTLE BLOWING MACHINE TENDER Unavailable [phone] Jimmy Davis MD Unavailable [phone] Amaya Harris MD Primary Care Provider [phone] Allergies Active Allergy Reactions Criticality Noted Date [...] obstructive apneas and 14 hypopneas on CPAP [id number], nasal mask of small size. Assessment & Plan (12/06/2021 9:48 AM EDT): Recommend BiPAP Assessment & Plan (12/11/2019 11:29 AM EDT): Still has BiPAP machine but hasn't used it since weight loss. Assessment & Plan (04/12/2019 5:55 PM EDT): Patient believes this is much better after weight loss. Wanted me to discontinue her BiPAP. I have referred back to [facility] for repeat sleep study off of any [...] any customer service. Hoping to switch to [facility] who cares for her and [...] HEPATITIS C SCREENING 1977 HIV ONE-TIME SCREENING (18-65 YEARS) 1977 ZOSTER VACCINES (1 of 2) 1978 MAMMOGRAM 1999 COLOGUARD 2004 FIT TEST 2004 FOBT 2004 SIGMOIDOSCOPY 2004 VIRTUAL COLONOSCOPY 2004 PNEUMOCOCCAL VACCINES (50+ years) (2 of 2 - PCV) 02/21/2016 02/20/2015 RSV VACCINE (1 - Risk 60-74 years 1-dose series) 2019 Adult Td,Tdap Booster 10/04/2021 10/05/2011, 005 SCREENING FOR DIABETES 10/23/2021 10/23/2018 OSTEOPOROSIS SCREENING INITIAL (ONE-TIME) 2024 INFLUENZA VACCINE (#1) 2025 , 04/17/2019, 05/11/2018, Additional history exists COVID-19 VACCINE ( season) 2025 05/22/2021, 11/07/2020, 10/17/2020 COLONOSCOPY 10/29/2031 10/28/2021 COLORECTAL CANCER SCREENING 10/29/2031 [...] this topic Medical Devices Implanted Type Area Economic Developer Device Identifier Shelf Expiration Date Model / Serial / Lot Filler Bone Sm Graft Demineralized Orthoblend Container 10ml Volume - [id number] Implanted:Qty: 1 on 05/23/2017 by Santos Daniels MD at [facility] STANDARD Back [employer] 01/02/2019 [id number] / / [id number] Neck Set Screw Sextant - [id number] Implanted:Qty: 4 on 05/23/2017 by Santos Daniels MD at [facility] Back [employer] [id number] / / Description:4 set screws Screw Spine Sextant 6.5x40mm - [id number] Implanted:Qty: 1 on 05/23/2017 by Santos Daniels MD at [facility] N/A: Back [employer] [id number] / [id number] / Bo Spinal Sextant 5.5x40mm - [id number] Implanted:Qty: 1 on 05/23/2017 by Santos Daniels MD at [facility] Back [employer] [id number] / [id number] / Description:35mm bo Bo Bone 5.5x35mm Spine Sextant Pre Bent Titanium - [id number] Implanted:Qty: 1 on 05/23/2017 by Santos Daniels MD at [facility] [employer] [id number] / [id number] / Description:35mm bo Screw Spine Sextant 6.5x45mm - [id number] Implanted:Qty: 2 on 05/23/2017 by Santos Daniels MD at [facility] [employer] [id number] / [id number] / Sextant Bone Screw 7.5 X 40 Implanted:Qty: 1 on 05/23/2017 by Santos Daniels MD at [facility] [employer] / [id number] / Spacer Capstone Peek 09x32 - [id number] Implanted:Qty: 1 on 05/23/2017 by Santos Daniels MD at [facility] Spine Lumbar [employer] 11/26/2022 [id number] / [id number] / [id number] Procedures Procedure Name Priority Date/Time Associated Diagnosis Comments ENDOSCOPY, COLON 10/28/2021 10:4 0 AM EDT from Last 3 Months or Most Recently Relevant to Health Maintenance Results * ENDOSCOPY, COLON (10/28/2021 10:40 AM EDT) Narrative Transcriptions Nae Marr MD - 10/28/2021 10:40 AM EDT Patient Name: Kaylah Streeter Attending MD:: NAE MARR MD Procedure Date: 10/28/2021 10:40 AM Date of : 1960 Age: 61 Admit Type: Outpatient Gender: Female Room: [facility] 05 Referring MD: Amaya Harris MD Exam Type: [...] monitored continuously. The Olympus adult variable colonoscope [id number] #4 was introduced through the anus and [...] 10:40 AM Procedure Code(s): --- Professional --- 28644, Colonoscopy, flexible; diagnostic, including collection of specimen(s) by brushing or washing, when performed (separateprocedure) --- Technical --- 98696, Colonoscopy, flexible; diagnostic, including collection of specimen(s) by brushing or washing, when performed (separateprocedure) Diagnosis Code(s): --- Professional --- R19.4, Change in bowel habit K57.30, Diverticulosis of large intestine without perforation or abscess without bleeding --- Technical --- R19.4, Change in bowel habit K57.30, Diverticulosis of large intestine without perforation or abscess without bleeding CPT copyright 2020 [employer]. All rights reserved. The codes documented in this report are preliminary and upon electric motor tester assembler reviewmay be revised to meet current compliance requirements. Procedure Date: 10/28/2021 10:40:12 AM [address] [place] [address] Amaya Harris MD GI PROCEDURE ORDERABLES Final Re sult from Last 3 Months or Most Recently Relevant to Health Maintenance Insurance [place] [id number] [place] [id number] MEDICARE PART A & B [place] [id number] MEDIC[place] [id number] MEDICARE [place] A [place] [id number] MEDICARE PART A & B HEALTH MEDICARE PART A & B [facility] & [facility] Advance Directives For more information, please contact: [phone] (9AM - 5PM [facility], Monday-Monday) * Full Code (Presumed) (Latest Code Status on File) Date Activated Date Inactivated Comments 05/23/2017 4:19 PM 05/26/2017 6:49 PM Care Teams Cardiovascular Invasive Specialist Relationship Specialty Start Date End Date Amaya Harris MD [facility] [place] [address] PCP - General Internal Medicine 12/06/17 Carlos Alberto Briones CNP Historical LMR Provider 05/13/17 Jimmy Davis MD [address] [place] [address] [email or web address] Historical LMR Provider 05/13/17 Additional Source Comments The information contained in this document represents components of the legal health record. It is not the complete legal health record.[facility]
--- OUTSIDE RECORDS SUMMARY | 2025-03-27 10:00 | XMS_ITS | Encounter Summary ---
Author Organization [facility] Address [address] [place] [address] Phone Care Team Providers Care Cnc Lathe Machinist Name Role Phone Carlos Alberto Briones FORMING FIXER Unavailable Amaya Harris MD Unavailable Jimmy Davis MD Unavailable Amaya Harris MD Primary Care Provider [phone] Encounter Details Date Type Department Care Team (Latest Contact Info) Description 10/03/2019 Transcribe Orders Virtual Department [address] [place] [address] Nirali Barrientos, NURSE OB [address] [place] [phone] [email or web address] Postlaminectomy syndrome, not elsewhere classified (Primary Dx) [...] evidence of lumbar vertebral fracture. POS - [id number] Narrative 10/07/2019 10:49 AM EDT XR LUMBOSACRAL [...] evidence of lumbar vertebral fracture. POS - [id number] Nirali Barrientos NURSE OB IMG XR SPINE Final Result documented in this encounter Visit Diagnoses Diagnosis Postlaminectomy syndrome, not elsewhere classified- Primary Postlaminectomy syndrome, not elsewhere classified documented in this encounter Care Teams Cnc Lathe Machinist Relationship Specialty Start Date End Date Amaya Harris MD [address] [facility] [place] [address] PCP - General Internal Medicine 12/06/17 Carlos Alberto Briones CNP Historical LMR Provider 05/13/17 Amaya Harris MD [address] [facility] [place] [address] Historical LMR Provider 05/13/17 2 Jimmy Davis MD [address] [place] [address] Historical LMR Provider 05/13/17 documented as of this encounter Additional Source Comments The information contained in this document represents components of the legal health record. It is not the complete legal health record.[facility]
--- OUTSIDE RECORDS SUMMARY | 2025-03-27 10:00 | XMS_ITS | Encounter Summary ---
Author Organization [facility] Address [address] [place] [address] Phone Care Team Providers Care Homoeopath Name Role Phone Carlos Alberto Briones Rasheedadmemeka RN SHIFT MGR Unavailable Amaya Harris MD Unavailable Jimmy Davis MD Unavailable [phone] Amaya Harris MD Primary Care Provider Mihir Starkey MD Primary Care Provider Amaya Harris MD Primary Care Provider Encounter Details Date Type Department Care Team (Late st Contact Info) Description 05/23/2017 Procedure [facility],Outside Imaging [address] [place] [address] Social History Tobacco Use Types Packs/Day Years [...] on filedocumented in this encounter Care Teams Homoeopath Relationship Specialty Start Date End Date Amaya Harris MD [address] [facility] [place] [address] PCP - General Internal Medicine 05/15/17 10/11/17 Mihir Starkey MD [address] [place] [address] [place] [address] PCP - General Internal Medicine 10/12/17 12/05/17 Amaya Harris MD [facility] [place] [address] PCP - General Internal Medicine 12/06/17 Carlos Alberto Briones CNP [email or web address] Historical LMR Provider 05/13/17 Amaya Harris MD [address] [place] [address] [place] [address] Historical LMR Provider 05/13/17 2 Jimmy Davis MD [address] [place] [address] [email or web address] Historical LMR Provider 05/13/17 documented as of this encounter Additional Source Comments The information contained in this document represents components of the legal health record. It is not the complete legal health record.[facility]
--- OUTSIDE RECORDS SUMMARY | 2025-03-27 10:00 | XMS_ITS | Encounter Summary ---
Author Organization [facility] Address [address] [place] [address] Phone Care Team Providers Care Corporate Associate Attorney Name Role Phone Carlos Alberto Briones SHIRT OPERATOR Unavailable Jimmy Davis MD Unavailable Amaya Harris MD Primary Care Provider Encounter Details Date Type Department Care Team (Late st Contact Info) Description 02/02/2022 Transcribe Orders Virtual Department [address] [place] [address] Carlito Marr MD [address] [place] [address] [email or web address] Social History Tobacco Use Types Packs/Day Years [...] on filedocumented in this encounter Care Teams Corporate Associate Attorney Relationship Specialty Start Date End Date Amaya Harris MD 1962 [facility] [place] [address] PCP - General Internal Medicine 12/06/17 Carlos Alberto Briones CNP Historical LMR Provider 05/13/17 Jimmy Davis MD [address] [place] [address] [email or web address] Historical LMR Provider 05/13/17 documented as of this encounter Additional Source Comments The information contained in this document represents components of the legal health record. It is not the complete legal health record.[facility]
--- OUTSIDE RECORDS SUMMARY | 2025-03-27 10:00 | XMS_ITS | Encounter Summary ---
Author Organization [facility] Address [address] [place] [address] Phone Care Team Providers Care Subscription Crew Leader Name Role Phone Carlos Alberto Briones Rasheedakary DAIRY WORKER Unavailable Jimmy Davis MD Unavailable Amaya Harris MD Primary Care Provider [phone] Encounter Details Date Type Department Care Team (Latest Contact Info) Description 10/27/2021 Transcribe Orders Virtual Department [address] [place] [address] Kaleigh Salgado NP [address] [place] [address] [phone] [email or web address] Pre-procedure lab exam (Primary Dx) Social History [...] examination documented in this encounter Care Teams Subscription Crew Leader Relationship Specialty Start Date End Date Amaya Harris MD [address] [facility] [place] [address] PCP - General Internal Medicine 12/06/17 Carlos Alberto Briones CNP Historical LMR Provider 05/13/17 Jimmy Davis MD [address] [place] [address] [email or web address] Historical LMR Provider 05/13/17 documented as of this encounter Additional Source Comments The information contained in this document represents components of the legal health record. It is not the complete legal health record.[facility]
--- OUTSIDE RECORDS SUMMARY | 2025-03-27 10:00 | XMS_ITS | Encounter Summary ---
Author Organization [facility] Address [address] [place] [address] Phone Care Team Providers Care Cork Tile Floor Layer Name Role Phone Carlos Alberto Briones FOOD MIXER REPAIRER Unavailable Jimmy Davis MD Unavailable Amaya Harris MD Primary Care Provider [phone] Encounter Details Date Type Department Care Team (Late st Contact Info) Description 09/24/2021 Procedure Pass [facility], Ct Scan - [address] [address] Social History Tobacco Use Types Packs/Day Years [...] on filedocumented in this encounter Care Teams Cork Tile Floor Layer Relationship Specialty Start Date End Date Amaya Harris MD [facility] [place] [address] PCP - General Internal Medicine 5/16/18 Carlos Alberto Briones CNP [email or web address] Historical LMR Provider 05/13/17 Jimmy Davis MD [address] [place] [address] [email or web address] Historical LMR Provider 05/13/17 documented as of this encounter Additional Source Comments The information contained in this document represents components of the legal health record. It is not the complete legal health record.[facility]
--- OUTSIDE RECORDS SUMMARY | 2025-03-27 10:00 | XMS_ITS | Patient Health Record ---
Author Organization [facility] Address [address] [place] [address] Care Team Providers Care Shaping Machine Tender Name Role Phone Steven MILLIGAN, Asma Primary Care Provider Andrew Dennis [phone] Allergies Allergen (clinical drug ingredient) Drug/Non Drug [...] 20 MG TAKE 1 CAPSULE BY [facility] TWICE A DAY for 90 Active [...] W/U Status Risk Notes Problem Epigastric pain (31557434) Epigastric abdominal pain (R10.13) Active confirmed Problem Irritable bowel syndrome (52032325) Irritable bowel syndrome (K58.9) Active confirmed Problem [id number] Valverde's esophagus without dysplasia (K22.70) Active confirmed Problem Early satiety (590570195) Early satiety (R68.81) Active confirmed Problem Gastroesophageal reflux disease (048677606) GERD (gastroesophage al reflux disease) (K21.9) Active confirmed Problem Vomiting (347861969) Vomiting (R11.10) Active confirmed Problem 135720221 Irritable bowel syndrome with constipation (K58.1) Active [...] OF [place] [address] JOE LAYNECHINTANSIVAN [phone] [id number] FARHAN PETERSON Self - patient is the insured MEDICAID OF [facility] [address] [place] [address] [id number] FARHAN PETERSON Self - patient is the insured Medical (General) History Medical History History ICD Code Chronic neck and back pain from degenera tive disc disease Denies LA,DM,CVA,renal disease Asthma Fibromyalgia Distant hx of stomach [...] surgery Gastric sleeve surgery 06/[address] Vaguhn Left shoulder surgery
--- OUTSIDE RECORDS SUMMARY | 2025-03-27 10:00 | XMS_ITS | Encounter Summary ---
Author Organization [facility] Address [address] [place] [address] Phone Care Team Providers Care Coach Professional Athletes Name Role Phone Carlos Alberto Briones JEWEL CUPPING MACHINE OPERATOR Unavailable Jimmy Davis MD Unavailable Amaya Harris MD Primary Care Provider Encounter Details Date Type Department Care Team (Late st Contact Info) Description 02/16/2022 Transcribe Orders Virtual Department 30 [place] [address] Carlito Marr MD [address] [place] [address] [email or web address] Social History Tobacco Use [...] on filedocumented in this encounter Care Teams Coach Professional Athletes Relationship Specialty Start Date End Date Amaya Harris MD [address] [facility] [place] [address] PCP - General Internal Medicine 12/06/17 Carlos Alberto Briones CNP Historical LMR Provider 05/13/17 Jimmy Davis MD [address] [place] [address] [email or web address] Historical LMR Provider 05/13/17 documented as of this encounter Additional Source Comments The information contained in this document represents components of the legal health record. It is not the complete legal health record.[facility]
--- OUTSIDE RECORDS SUMMARY | 2025-03-27 10:00 | XMS_ITS | Encounter Summary ---
Author Organization [facility] Address [address] [place] [address] Phone Care Team Providers Care Classics Teacher Name Role Phone Annie Brionescameronmariah Kay HUMAN RESOURCES CLERK Unavailable Amaya Harris MD Unavailable Jimmy Davis MD Unavailable Amaya Harris MD Primary Care Provider [phone] Mihir Starkey MD Primary Care Provider Amaya Harris MD Primary Care Provider [phone] Encounter Details Date Type Department Care Team (Late st Contact Info) Description 05/23/2017 Procedure Pass OR Admitting Dept - [facility] Department [address] [place] [address] Social History Tobacco Use Types Packs/Day Years [...] on filedocumented in this encounter Care Teams Classics Teacher Relationship Specialty Start Date End Date Amaya Harris MD [address] [place] [address] [place] [address] PCP - General Internal Medicine 05/15/17 10/11/17 Mihir Starkey MD [address] [place] [address] [place] [address] PCP - General Internal Medicine 10/12/17 12/05/17 Amaya Harris MD [address] [place] [address] [place] [address] PCP - General Internal Medicine 12/06/17 Carlos Alberto Briones CNP Historical LMR Provider 05/13/17 Amaya Harris MD [address] [place] [address] [place] [address] Historical LMR Provider 05/13/17 2 Jimmy Davis MD [address] [place] [address] [email or web address] Historical LMR Provider 05/13/17 documented as of this encounter Additional Source Comments The information contained in this document represents components of the legal health record. It is not the complete legal health record.[facility]
--- OUTSIDE RECORDS SUMMARY | 2025-03-27 10:00 | XMS_ITS | Encounter Summary ---
Author Organization [facility] Address [address] [place] [address] Phone Care Team Providers Care Kelly Machine Operator Name Role Phone Carlos Alberto Briones FAT PURIFICATION WORKER Unavailable Jimmy Davis MD Unavailable [phone] Amaya Harris MD Primary Care Provider Encounter Details Date Type Department Care Team (Late st Contact Info) Description 10/28/2021 Procedure Pass [facility] Admitting Dept Virtual Department 30 [place], [place] [phone] Social History Tobacco Use Types Packs/Day Years [...] on filedocumented in this encounter Care Teams Kelly Machine Operator Relationship Specialty Start Date End Date Amaya Harris MD [facility] [place] [address] PCP - General Internal Medicine 12/06/17 Carlos Alberto Briones CNP Historical LMR Provider 05/13/17 Jimmy Davis MD [address] [place] [address] [email or web address] Historical LMR Provider 05/13/17 documented as of this encounter Additional Source Comments The information contained in this document represents components of the legal health record. It is not the complete legal health record.[facility]
--- OUTSIDE RECORDS SUMMARY | 2025-03-27 10:00 | XMS_ITS | Encounter Summary ---
Author Organization [facility] Address [address] [place] [address] Phone Care Team Providers Care Offshore Diver Name Role Phone Carlos Alberto Briones FARM MANAGEMENT ADVISER Unavailable Amaya Harris MD Unavailable Jimmy Davis MD Unavailable Amaya Harris MD Primary Care Provider Mihir Starkey MD Primary Care Provider Amaya Harris MD Primary Care Provider Encounter Details Date Type Department Care Team (Latest Contact Info) Description 06/19/2017 Ancillary Orders [facility], X-Ray - [address] [address] Angie Crawford, JEZ [address] [place] [address] [phone] [email or web address] Arthrodesis status; Lumbar radiculopathy Social History Tobacco [...] unspecified documented in this encounter Care Teams Offshore Diver Relationship Specialty Start Date End Date Amaya Harris MD [address] [place] [address] [place] [address] PCP - General Internal Medicine 05/15/17 10/11/17 Mihir Starkey MD [address] [place] [address] [place] [address] PCP - General Internal Medicine 10/12/17 12/05/17 Amaya Harris MD [address] [place] [address] [place] [address] PCP - General Internal Medicine 12/06/17 Carlos Alberto Briones CNP [email or web address] Historical LMR Provider 05/13/17 Amaya Harris MD [address] [place] [address] [place] [address] Historical LMR Provider 05/13/17 2 Jimmy Davis MD [address] [place] [address] [email or web address] Historical LMR Provider 05/13/17 documented as of this encounter Additional Source Comments The information contained in this document represents components of the legal health record. It is not the complete legal health record.[facility]
== END 2025-03-27 09:42 | disposition home or self-care (01) ==
LOC: HO.HOS 09:20
PROVIDERS: PCP Internal Medicine; Visit Provider Orthopaedic Surgery
DX: Z96.651 Presence of right artificial knee joint (principal)
CPT/HCPCS: 99024

== ENCOUNTER → 2025-03-27 09:19 | Outpatient (BNVA) | payer MEDICARE, MEDICAID, SELFPAY | PROVIDERS: PCP Internal Medicine; Visit Provider Orthopaedic Surgery | DX: Z96.651 Presence of right artificial knee joint (principal) | CPT/HCPCS: 99212 ==

== ENCOUNTER 2025-05-22 15:33 | Outpatient (AMB) | payer MEDICARE, MEDICAID, SELFPAY ==
[2025-05-22 15:40] VITALS: BP 133/61; PULSE 85; RESP 16; O2SAT 98; BMI 33.5
--- NOTE | 2025-05-22 15:40 | A.OFFVIS_ITS ---
Vital Signs 05/22/25 15:40 Height 5 ft 3 in Weight 189 lb BMI 33.5 BP 133/61 Blood Pressure Location Rt brachial Position Sitting Respiration 16 Pulse 85 Pulse Source Pulse Oximeter Pulse Oximetry (%) 98 Oxygen Delivery Method Room Air Intake Visit Reasons: Follow Up/Discuss Repeat Inj. Nurses Director Required: No Accompanied by: Self / Same As Patient Allergies adhesive tape (ADHESIVE TAPE) Allergy (Severe, Verified 05/22/25 15:40) SKIN TEARS pramipexole Allergy (Severe, Verified 05/22/25 15:40) Diarrhea adalimumab (From Humira) Allergy (Intermediate, Verified 05/22/25 15:40) Itching carisoprodol (From SOMA) Allergy (Intermediate, Verified 05/22/25 15:40) SWELLING, RASH cephalexin Allergy (Intermediate, Verified 05/22/25 15:40) Itching gabapentin Allergy (Intermediate, Verified 05/22/25 15:40) leg swelling sulfamethoxazole (From BACTRIM) Allergy (Intermediate, Verified 05/22/25 15:40) SWELLING,RASH trimethoprim (From BACTRIM) Allergy (Intermediate, Verified 05/22/25 15:40) SWELLING,RASH HPI Comments Details: Kaylah is 64 years old female who is suffering from postlaminectomy syndrome and bilateral sacroiliitis. She received diagnostic sacroiliac joint injection which resulted in prolonged several days of pain relief. She also received therapeutic sacroiliac joint injection twice. First injection about 18 months ago resulted in 6 months of pain improvement. Second injection in November of this year resulted in 3 months of pain improvement. She bought times reported immediately after the procedure reduction of the pain 75-80%. However the pain starts to slowly climb up after 1 month of the therapeutic SI joint injection. She was a subject of physical therapy numerous times. She continues home exercise program currently. She tried to stay active performing activities of daily living. She in the past attempted to were sacroiliac joint belt which helps her pain moderately. She stated that she never received sacroiliac joint belt in this office. We will provide sacroiliac joint belt for the patient today. I will schedule her for CT scan of the lumbar spine with and without contrast as well as CT scan of the pelvis with and without contrast. Upon completion of those procedures I will schedule patient for the right and after that 3 weeks after left sacroiliac joint fusion Nevro. Patient was instructed today to complete the diagnostic studies and give us call immediately after the diagnostic study to schedule appointment with me. [facility] Medical History Arthritis History of headache Anxiety Depression Elevated cholesterol History of COVID-19 Chest pain JOHN positive Chronic pain syndrome Postlaminectomy syndrome of lumbar region Postlaminectomy syndrome of cervical region Chronic GERD Periodic limb movement disorder Sleeping difficulty Sciatica, right side Asthma, moderate Constipation by delayed colonic transit Pre-diabetes DJD (degenerative joint disease) Lipid disorder Bursitis of right shoulder Right shoulder pain Spinal stenosis Back pain Fibromyalgia Degenerative disc disease Surgical History Status post total right knee replacement History of total right knee replacement History of lumbar fusion S/P placement of nerve stimulator History of sleeve gastrectomy History of esophagogastroduodenoscopy (EGD) H/O colonoscopy History of gastric bypass Hx of cholecystectomy H/O: hysterectomy H/O spinal fusion H/O shoulder surgery Family History Father No problems noted. Mother No problems noted. Other Mental health disorder Social History Household Members: Other Household Members Other:: son Housing: House Are you a primary health care marketing manager to a significant other at home: No Do you presently have visiting nurse or other home services: No Alcohol intake: current Alcohol intake frequency: holidays/special occasions only Comment: pts baseline pain is 6/10 Patient Tobacco Use Status: Former Tobacco user Tobacco use type: Cigarette Years Smoked: 30 e-Cigarette/Vaping Use: Never Used Second Hand Smoke Exposure: No Substance Use Type: Marijuana service: No Current occupational status: disabled Current occupation: right handed Cognitive needs: No Hearing needs: No Vision needs: Yes Review of Systems Const All systems reviewed & are unremarkable except as noted in HPI and below ENT Reports Normal hearing present Neuro Reports Normal hearing present, Denies Abnormal speech present, Denies confusion and Denies Sensory deficit (Neuro) Psych Denies confusion Physical Exam Vital Signs: Last Vital Signs Pulse 85 05/22/25 15:40 Resp 16 05/22/25 15:40 BP 133/61 05/22/25 15:40 Pulse Ox 98 05/22/25 15:40 Oxygen Delivery Method Room Air 05/22/25 15:40 BMI result Body Mass Index 33.5 Const General: no acute distress; No confusion Orientation/consciousness: patient oriented x3 and No confusion Eyes General: appearance normal, both eyes and all related structures Pupils: Equal, round and reactive pupils present EOM: EOMs intact bilaterally Neck Neck: Yes full ROM Chest Chest palpation & inspection: normal inspection of the chest Resp Effort & Inspection: normal respiratory effort, able to speak in complete sentences, normal respiratory pattern, no audible wheezes and no cough Cardio Jugular venous distension: no JVD GI Inspection: Yes normal to inspection Back/Spine/Pelvis Other: Were well-healed incision on the lumbar spine demonstrates previous L5-S1 fusion. No signs of inflammation or infection. On physical exam patient is able to stand on bilateral tiptoes and bilateral heels. She denies numbness in bilateral lower extremities she denies weakness in bilateral lower extremities. SLR is negative bilaterally. Oc test is positive bilaterally. [place]'s test is positive bilaterally. Fourteen finger test is positive bilaterally. Pelvic compression test is positive bilaterally. Pelvic distraction test is positive more on the left and less on the right but also bilaterally. Neuro General: patient oriented x3, gait normal and No confusion Cranial nerves: Yes CN's II-XII intact bilaterally, Yes Equal, round and reactive pupils present, Yes Normal hearing present and Yes Ability to bilaterally elevate shoulders present Speech: No Abnormal speech present Gait exam (Neuro): Normal gait present Motor exam (neuro): 5/5 motor strength present throughout Sensory Exam: No Sensory deficit (Neuro) Extrem General: No pedal edema Psych Speech and movement: Normal speech and movement present Affect: normal affect Attitude: cooperative Thought process: Normal thought process present Thought content: Normal thought content present Insight: Good insight present (Psych) Judgement: Good judgement present (Psych) Assessment & Plan Assessment & Plan (1) Postlaminectomy syndrome of lumbar region: Comment: Patient is established with [facility] Code(s): M96.1 - Postlaminectomy syndrome, not elsewhere classified Category: Medical (2) Sacroiliitis: Code(s): M46.1 - Sacroiliitis, not elsewhere classified Category: Medical (3) Somatic dysfunction of both sacroiliac joints: Code(s): M99.04 - Segmental and somatic dysfunction of sacral region Category: Medical (4) Postlaminectomy syndrome of lumbar region: Comment: Patient is established with [facility] Code(s): M96.1 - Postlaminectomy syndrome, not elsewhere classified Category: Medical (5) Sacroiliitis: Code(s): M46.1 - Sacroiliitis, not elsewhere classified Category: Medical (6) Sacroiliac joint pain: Code(s): M53.3 - Sacrococcygeal disorders, not elsewhere classified Category: Medical Plan She was Nevro diagnose with osteoporosis or osteopenia. I will schedule this patient for diagnostic studies of the lumbar spine as well as pelvic bones. She will be wearing starting from today her sacroiliac joint belt again. She will give us a call and schedule appointment after we complete the diagnostic studies of lumbar spine and pelvis. We will consider sacroiliac joint fusion Nevro 1st on the right and after that on the left for this patient. Orders: Orders CT pelvis wo/w IV con Today M46.1 - Sacroiliitis, not elsewhere classified, M53.3 - Sacrococcygeal disorders, not elsewhere classified, M96.1 - Postlaminectomy syndrome, not elsewhere classified, M99.04 - Segmental and somatic dysfunction of sacral region CT lumbar spine wo/w IV con Today M46.1 - Sacroiliitis, not elsewhere classified, M96.1 - Postlaminectomy syndrome, not elsewhere classified, M99.04 - Segmental and somatic dysfunction of sacral region Coding Level of Care Code Est Pt Level 3 (20943) Diagnoses Postlaminectomy syndrome of lumbar region M96.1 Sacroiliitis M46.1 Somatic dysfunction of both sacroiliac joints M99.04 Sacroiliac joint pain M53.3
--- OUTSIDE RECORDS SUMMARY | 2025-05-22 18:03 | XMS_ITS | Encounter Summary ---
Author Organization [facility] Address [address] [place] [address] Phone Care Team Providers Care Cut Off Sawyer Name Role Phone Carlos Alberto Briones Kay RATE MARKER Unavailable Jimmy Davis MD Unavailable Amaya Harris MD Primary Care Provider Encounter Details Date Type Department Care Team (Late st Contact Info) Description 02/16/2022 Transcribe Orders Virtual Department [address] [place] [address] Carlito Marr MD [address] [place] [address] [email or web address] Social History Tobacco Use [...] on filedocumented in this encounter Care Teams Cut Off Sawyer Relationship Specialty Start Date End Date Amaya Harris MD [address] [facility] [place] [address] PCP - General Internal Medicine 12/06/17 Carlos Alberto Briones NP Historical LMR Provider 05/13/17 Jimmy Davis MD [address] [place] [address] [email or web address] Historical LMR Provider 05/13/17 documented as of this encounter Additional Source Comments The information contained in this document represents components of the legal health record. It is not the complete legal health record.[facility]
--- OUTSIDE RECORDS SUMMARY | 2025-05-22 18:03 | XMS_ITS | Encounter Summary ---
Author Organization [facility] Address [address] [place] [address] Phone Care Team Providers Care Research Analyst Name Role Phone Anselmo Carlos Alberto Villanueva NP Unavailable [phone] Jimmy Davis MD Unavailable Amaya Harris MD Primary Care Provider Encounter Details Date Type Department Care Team (Latest Contact Info) Description 10/27/2021 Transcribe Orders Virtual Department 30 [place] [address] Kaleigh Salgado CNP [address] [place] [address] [phone] [email or web address] Pre-procedure lab exam (Primary Dx) Social History [...] examination documented in this encounter Care Teams Research Analyst Relationship Specialty Start Date End Date Amaya Harris MD [address] [place] [address] PCP - General Internal Medicine 12/06/17 Carlos Alberto Briones NP Historical LMR Provider 05/13/17 Jimmy Davis MD [address] [place] [address] Historical LMR Provider 05/13/17 documented as of this encounter Additional Source Comments The information contained in this document represents components of the legal health record. It is not the complete legal health record.[facility]
--- OUTSIDE RECORDS SUMMARY | 2025-05-22 18:03 | XMS_ITS | Encounter Summary ---
Author Organization [facility] Address [address] [place] [address] Phone Care Team Providers Care Service Assistant Name Role Phone Carlos Alberto Briones Kay BOOM SUPERVISOR Unavailable [phone] Jimmy Davis MD Unavailable [phone] Amaya Harris MD Primary Care Provider Encounter Details Date Type Department Care Team (Late st Contact Info) Description 10/28/2021 Procedure Pass [facility]oscopy Admitting Dept Virtual Department [address] [place] [address] Social History Tobacco Use Types Packs/Day Years [...] on filedocumented in this encounter Care Teams Service Assistant Relationship Specialty Start Date End Date Amaya Harris MD [facility] [place] [address] PCP - General Internal Medicine 12/06/17 Carlos Alberto Briones NP Historical LMR Provider 05/13/17 Jimmy Davis MD [address] [place] [address] [email or web address] Historical LMR Provider 05/13/17 documented as of this encounter Additional Source Comments The information contained in this document represents components of the legal health record. It is not the complete legal health record.[facility]
--- OUTSIDE RECORDS SUMMARY | 2025-05-22 18:03 | XMS_ITS | Encounter Summary ---
Author Organization [facility] Address [address] [place] [address] Phone Care Team Providers Care High School Foreign Language Tutor Name Role Phone Carlos Alberto Briones NP Unavailable [phone] Amaya Harris MD Unavailable Jimmy Davis MD Unavailable Amaya Harris MD Primary Care Provider [phone] Encounter Details Date Type Department Care Team (Late st Contact Info) Description 12/06/2017 Ancillary Orders [facility], X-Ray - [address] [address] Santos Daniels MD [address] [place] [address] [email or web address] Fusion of spine of lumbar [...] region documented in this encounter Care Teams High School Foreign Language Tutor Relationship Specialty Start Date End Date Amaya Harris MD [address] [facility] [place] [address] PCP - General Internal Medicine 12/06/17 Carlos Alberto Briones NP Historical LMR Provider 05/13/17 Amaya Harris MD [facility] [place] [address] Historical LMR Provider 05/13/17 2 Jimmy Davis MD [address] [place] [address] [email or web address] Historical LMR Provider 05/13/17 documented as of this encounter Additional Source Comments The information contained in this document represents components of the legal health record. It is not the complete legal health record.[facility]
--- OUTSIDE RECORDS SUMMARY | 2025-05-22 18:03 | XMS_ITS | Encounter Summary ---
Author Organization [facility] Address [address] [place] [address] Phone Care Team Providers Care Professional Volleyball Player Name Role Phone Carlos Alberto Briones Rasheedaashleybrayan ADMITTING MANAGER Unavailable [phone] Jimmy Davis MD Unavailable [phone] Amaya Harris MD Primary Care Provider Encounter Details Date Type Department Care Team (Late st Contact Info) Description 09/24/2021 Procedure Pass [facility], Ct Scan - [address] [address] Social History Tobacco Use Types Packs/Day Years [...] on filedocumented in this encounter Care Teams Professional Volleyball Player Relationship Specialty Start Date End Date Amaya Harris MD [facility] [place] [address] PCP - General Internal Medicine 5/16/18 Carlos Alberto Briones NP [email or web address] Historical LMR Provider 05/13/17 Jimmy Davis MD [address] [place] [address] [email or web address] Historical LMR Provider 05/13/17 documented as of this encounter Additional Source Comments The information contained in this document represents components of the legal health record. It is not the complete legal health record.[facility]
--- OUTSIDE RECORDS SUMMARY | 2025-05-22 18:03 | XMS_ITS | Encounter Summary ---
Author Organization [facility] Address [address] [place] [address] Phone Care Team Providers Care Field Support Specialist Name Role Phone Carlos Alberto Briones Kay GLAZE CARRIER Unavailable [phone] Jimmy Davis MD Unavailable [phone] Amaya Harris MD Primary Care Provider Encounter Details Date Type Department Care Team (Late st Contact Info) Description 02/02/2022 Transcribe Orders Virtual Department [address] [place] [address] Carlito Marr MD [address] [place] [address] [email or web address] Social History Tobacco Use Types Packs/Day Years [...] on filedocumented in this encounter Care Teams Field Support Specialist Relationship Specialty Start Date End Date Amaya Harris MD [address] [place] [address] PCP - General Internal Medicine 12/06/17 Carlos Alberto Briones NP Historical LMR Provider 05/13/17 Jimmy Davis MD [address] [place] [address] [email or web address] Historical LMR Provider 05/13/17 documented as of this encounter Additional Source Comments The information contained in this document represents components of the legal health record. It is not the complete legal health record.[facility]
--- OUTSIDE RECORDS SUMMARY | 2025-05-22 18:03 | XMS_ITS | Encounter Summary ---
Author Organization [facility] Address [address] [place] [address] Phone Care Team Providers Care Time Analysis Clerk Name Role Phone Anselmo, Carlos Alberto Villanueva BLOOD COLLECTOR Unavailable [phone] Amaya Harris MD Unavailable Jimmy Davis MD Unavailable [phone] Amaya Harris MD Primary Care Provider Mihir Starkey MD Primary Care Provider Amaya Harris MD Primary Care Provider [phone] Encounter Details Date Type Department Care Team (Late st Contact Info) Description 05/23/2017 Procedure Pass OR Admitting Dept - [facility] Department [address] [place] [address] Social History Tobacco Use Types Packs/Day Years [...] on filedocumented in this encounter Care Teams Time Analysis Clerk Relationship Specialty Start Date End Date Amaya Harris MD [address] [facility] [place] [address] PCP - General Internal Medicine 05/15/17 10/11/17 Mihir Starkey MD [address] [place] [address] [place] [address] PCP - General Internal Medicine 10/12/17 12/05/17 Amaya Harris MD [address] [place] [place] [address] PCP - General Internal Medicine 12/06/17 Carlos Alberto Briones NP [email or web address] Historical LMR Provider 05/13/17 Amaya Harris MD [address] [facility] [place] [address] Historical LMR Provider 05/13/17 2 Jimmy Davis MD [address] [place] [address] [email or web address] Historical LMR Provider 05/13/17 documented as of this encounter Additional Source Comments The information contained in this document represents components of the legal health record. It is not the complete legal health record.[facility]
--- OUTSIDE RECORDS SUMMARY | 2025-05-22 18:03 | XMS_ITS | Encounter Summary ---
Author Organization [facility] Address [address] [place] [address] Phone Care Team Providers Care Central Office Operator Name Role Phone Annie Brionescameronmariah Kay RADIOGRAPHER TECHNOLOGIST Unavailable [phone] Amaya Harris MD Unavailable Jimmy Davis MD Unavailable [phone] Amaya Harris MD Primary Care Provider Mihir Starkey MD Primary Care Provider Amaya Harris MD Primary Care Provider [phone] Encounter Details Date Type Department Care Team (Late st Contact Info) Description 05/23/2017 Procedure Pass [facility] Imaging [address] [place] [address] Social History Tobacco Use Types Packs/Day Years [...] on filedocumented in this encounter Care Teams Central Office Operator Relationship Specialty Start Date End Date Amaya Harris MD [address] [facility] [place] [address] PCP - General Internal Medicine 05/15/17 10/11/17 Mihir Starkey MD [address] [place] [address] [place] [address] PCP - General Internal Medicine 10/12/17 12/05/17 Amaya Harris MD [address] [place] [address] [place] [address] PCP - General Internal Medicine 12/06/17 Carlos Alberto Briones NP [email or web address] Historical LMR Provider 05/13/17 Amaya Harris MD [address] [place] [address] [place] [address] Historical LMR Provider 05/13/17 2 Jimmy Davis MD [address] [place] [address] [email or web address] Historical LMR Provider 05/13/17 documented as of this encounter Additional Source Comments The information contained in this document represents components of the legal health record. It is not the complete legal health record.[facility]
--- OUTSIDE RECORDS SUMMARY | 2025-05-22 18:03 | XMS_ITS | Clinical Summary ---
Author Organization [facility] Address [address] [place] [address] Phone Care Team Providers Care Tenant Selector Name Role Phone AnselmoCarlos Alberto zamora Kay GR Unavailable Jimmy Davis MD Unavailable [phone] Amaya Harris MD Primary Care Provider [phone] Allergies Active Allergy Reactions Criticality Noted Date [...] obstructive apneas and 14 hypopneas on CPAP [id number], nasal mask of small size. Assessment & Plan (12/06/2021 9:48 AM EDT): Recommend BiPAP Assessment & Plan (12/11/2019 11:29 AM EDT): Still has BiPAP machine but hasn't used it since weight loss. Assessment & Plan (04/12/2019 5:55 PM EDT): Patient believes this is much better after weight loss. Wanted me to discontinue her BiPAP. I have referred back to [facility] for repeat sleep study off of any [...] any customer service. Hoping to switch to [facility] who cares for her and has been [...] TOBACCO SCREENING 1972 HEPATITIS C SCREENING 1977 ZOSTER VACCINES (1 of 2) 1978 MAMMOGRAM 1999 COLOGUARD 2004 FIT TEST 2004 FOBT 2004 SIGMOIDOSCOPY 2004 VIRTUAL COLONOSCOPY 2004 RSV VACCINE (1 - Risk 50-74 years 1-dose series) 2009 PNEUMOCOCCAL VACCINES (50+ years) (2 of 2 - PCV) 02/21/2016 02/20/2015 Adult Td,Tdap Booster 10/04/2021 10/05/2011, 005 SCREENING [...] this topic Medical Devices Implanted Type Area Cnc Milling Machine Operator Device Identifier Shelf Expiration Date Model / Serial / Lot Filler Bone Sm Graft Demineralized Orthoblend Container 10ml Volume - [id number] Implanted:Qty: 1 on 05/23/2017 by Santos Daniels MD at [facility] STANDARD Back [employer] 01/02/2019 [id number] / / [id number] Neck Set Screw Sextant - [id number] Implanted:Qty: 4 on 05/23/2017 by Santos Daniels MD at [facility] Back [employer] [id number] / / Description:4 set screws Screw Spine Sextant 6.5x40mm - [id number] Implanted:Qty: 1 on 05/23/2017 by Santos Daniels MD at [facility] N/A: Back [employer] [id number] / [id number] / Bo Spinal Sextant 5.5x40mm - [id number] Implanted:Qty: 1 on 05/23/2017 by Santos Daniels MD at [facility] Back [employer] [id number] / [id number] / Description:35mm bo Bo Bone 5.5x35mm Spine Sextant Pre Bent Titanium - [id number] Implanted:Qty: 1 on 05/23/2017 by Santos Daniels MD at [facility] [employer] [id number] / [id number] / Description:35mm bo Screw Spine Sextant 6.5x45mm - [id number] Implanted:Qty: 2 on 05/23/2017 by Santos Daniels MD at [facility] [employer] [id number] / [id number] / Sextant Bone Screw 7.5 X 40 Implanted:Qty: 1 on 05/23/2017 by Santos Daniels MD at [facility] [employer] / [id number] / Spacer Capstone Peek 09x32 - [id number] Implanted:Qty: 1 on 05/23/2017 by Santos Daniels MD at [facility] Spine Lumbar [employer] 11/26/2022 [id number] / [id number] / [id number] Procedures Procedure Name Priority Date/Time Associated Diagnosis [...] 61 Admit Type: Outpatient Gender: Female Room: [facility] [place] [facility] Referring MD: Amaya Harris MD Exam [...] monitored continuously. The Olympus adult variable colonoscope [id number] #4 was introduced through the anus and [...] 10:40 AM Procedure Code(s): --- Professional --- 72469, Colonoscopy, flexible; diagnostic, including collection of specimen(s) by brushing or washing, when performed (separateprocedure) --- Technical --- 75378, Colonoscopy, flexible; diagnostic, including collection of specimen(s) by brushing or washing, when performed (separateprocedure) Diagnosis Code(s): --- Professional --- R19.4, Change in bowel habit K57.30, Diverticulosis of large intestine without perforation or abscess without bleeding --- Technical --- R19.4, Change in bowel habit K57.30, Diverticulosis of large intestine without perforation or abscess without bleeding CPT copyright 2020 [employer]. All rights reserved. The codes documented in this report are preliminary and upon system consultant reviewmay be revised to meet current compliance requirements. Procedure Date: 10/28/2021 10:40:12 AM [address] [place] [address] Amaya Harris MD GI PROCEDURE ORDERABLES Final Re sult from Last 3 Months or Most Recently Relevant to Health Maintenance Insurance MEDICARE PART A [place] [address] [place] [address] MEDICARE PART A & B [place] [address] MEDICARE PART A & B Member Subscriber Plan / Payer ( fective 2019-Present) Name:SylKaylah ceballos Member ID:[id number] Relation to Subscriber:Self Name:SylKaylah combs Subscriber ID:[id number] Payer ID:[id number] Group ID:Not on file Type:Medicare Address: [employer] [address] [place] [address] MEDICARE PART A & B HEALTH [place]I YADAV [id number] MEDICARE PART A & B HEALTH MEDICARE PART A & [place] [facility] [address] MEDICARE PART A [place] [id number] MEDICARE [place] [id number] Advance Directives For more information, please contact: [phone] (9AM - 5PM Zoey/[facility], Monday-Monday) * Full Code (Presumed) (Latest Code Status on File) Date Activated Date Inactivated Comments 05/23/2017 4:19 PM 05/26/2017 6:49 PM Care Teams Tenant Selector Relationship Specialty Start Date End Date Amaya Harris MD [address] [facility] [address] [place] [id number] PCP - General Internal Medicine 12/06/17 Carlos Alberto Briones NP [email or web address] Historical LMR Provider 05/13/17 Jimmy Davis MD [address] [place] [address] [email or web address] Historical LMR Provider 05/13/17 Additional Source Comments The information contained in this document represents components of the legal health record. It is not the complete legal health record.[facility]
--- OUTSIDE RECORDS SUMMARY | 2025-05-22 18:03 | XMS_ITS | Patient Health Record ---
Author Organization [facility] Address [address] [place] [address] Care Team Providers Care Needle Felt Making Machine Operator Name Role Phone Steven MILLIGAN, Asma Primary Care Provider Andrew Dennis [phone] Allergies Allergen (clinical drug ingredient) Drug/Non Drug [...] BY [facility] TWICE A DAY; Duration: 90 Active Incruse Ellipta Acti ve busPIRone [...] 1 MG 1 tablet Orally Once a day; Duration: 30 day(s) Active Immunizations Vaccine Route Administration [...] W/U Status Risk Notes Problem Epigastric pain (93399220) Epigastric abdominal pain (R10.13) Active confirmed Problem Irritable bowel syndrome (41838298) Irritable bowel syndrome (K58.9) Active confirmed Problem Valverde's esophagus (530824705) Avlverde's esophagus without dysplasia (K22.70) Active confirmed Problem Early satiety (406478416) Early satiety (R68.81) Active confirmed Problem Gastroesophageal reflux disease (836199998) GERD (gastroesophage al reflux disease) (K21.9) Active confirmed Problem Vomiting (097049287) Vomiting (R11.10) Active confirmed Problem Irritable bowel syndrome characterized by constipation (071787738) Irritable bowel syndrome with constipation (K58.1) Active [...] MEDICARE OF [place] [address] [place] [address] [id number] FARHAN PETERSON Self - patient is the insured MEDICAID OF [facility] [address] [place] [phone] [id number] FARHAN PETERSON Self - patient is the insured Medical (General) History Medical History History ICD Code Chronic neck and back pain from degenera tive disc disease Denies IA,DM,CVA,renal disease Asthma Fibromyalgia Distant hx of stomach [...]
--- OUTSIDE RECORDS SUMMARY | 2025-05-22 18:03 | XMS_ITS | Encounter Summary ---
Author Organization [facility] Address [address] [place] [address] Phone Care Team Providers Care Agency Sales Representative Name Role Phone Anselmo Carlos Alberto Villanueva NP Unavailable Amaya Harris MD Unavailable Jimmy Davis MD Unavailable [phone] Amaya Harris MD Primary Care Provider [phone] Encounter Details Date Type Department Care Team (Latest Contact Info) Description 10/03/2019 Transcribe Orders Virtual Department [address] [place], [place] [id number] Nirali Barrientos, MAILE [address] [place] [phone] [email or web address] Postlaminectomy syndrome, not elsewhere classified (Primary Dx) [...] evidence of lumbar vertebral fracture. POS - [id number] Narrative 10/07/2019 10:49 AM EDT XR LUMBOSACRAL [...] evidence of lumbar vertebral fracture. POS - [id number] Nirali Barrientos NP IMG XR SPINE Final Result documented in this encounter Visit Diagnoses Diagnosis Postlaminectomy syndrome, not elsewhere classified- Primary Postlaminectomy syndrome, not elsewhere classified documented in this encounter Care Teams Agency Sales Representative Relationship Specialty Start Date End Date Amaya Harris MD [address] [facility] [place] [address] PCP - General Internal Medicine 12/06/17 Carlos Alberto Brinoes NP Historical LMR Provider 05/13/17 Amaya Harris MD [address] [facility] [place] [address] Historical LMR Provider 05/13/17 2 Jimmy Davis MD [address] [place] [address] Historical LMR Provider 05/13/17 documented as of this encounter Additional Source Comments The information contained in this document represents components of the legal health record. It is not the complete legal health record.[facility]
== END 2025-05-22 15:59 | disposition home or self-care (01) ==
LOC: HO.PMC 15:34
PROVIDERS: PCP Internal Medicine; Visit Provider Anesthesiology
DX: M96.1 Postlaminectomy syndrome, not elsewhere classified (principal); M46.1 Sacroiliitis, not elsewhere classified; M99.04 Segmental and somatic dysfunction of sacral region; M53.3 Sacrococcygeal disorders, not elsewhere classified
CPT/HCPCS: 99213

== ENCOUNTER → 2025-05-22 15:33 | Outpatient (BNVA) | payer MEDICARE, MEDICAID, SELFPAY | PROVIDERS: PCP Internal Medicine; Visit Provider Anesthesiology | DX: M96.1 Postlaminectomy syndrome, not elsewhere classified (principal); M99.04 Segmental and somatic dysfunction of sacral region; M46.1 Sacroiliitis, not elsewhere classified; M53.3 Sacrococcygeal disorders, not elsewhere classified | CPT/HCPCS: 99212 ==

== ENCOUNTER 2025-06-18 09:32 | Outpatient (AMB) | payer MEDICARE, MEDICAID, SELFPAY ==
[2025-06-18 09:38] VITALS: BP 126/80; PULSE 83; O2SAT 97; BMI 37.9
--- NOTE | 2025-06-18 09:38 | A.OFFPC_ITS ---
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 Required: No Accompanied by: Self / Same As Patient Allergies adhesive tape (ADHESIVE TAPE) Allergy (Severe, Verified 06/18/25 09:38) SKIN TEARS pramipexole Allergy (Severe, Verified 06/18/25 09:38) Diarrhea adalimumab (From Humira) Allergy (Intermediate, Verified 06/18/25 09:38) Itching carisoprodol (From SOMA) Allergy (Intermediate, Verified 06/18/25 09:38) SWELLING, RASH cephalexin Allergy (Intermediate, Verified 06/18/25 09:38) Itching gabapentin Allergy (Intermediate, Verified 06/18/25 09:38) leg swelling sulfamethoxazole (From BACTRIM) Allergy (Intermediate, Verified 06/18/25 09:38) SWELLING,RASH trimethoprim (From BACTRIM) Allergy (Intermediate, Verified 06/18/25 09:38) SWELLING,RASH Medication List - Last Reconciled 06/18/25 by Amaya Harris MD acetaminophen 650 mg (2 x 325 mg) PO Q6H PRN 30 days albuterol sulfate 90 mcg/actuation 2 puffs inhalation Q6H PRN cholecalciferol (vitamin D3) 25 mcg PO DAILY 90 days oxycodone 5 mg PO Q8H PRN 7 days simvastatin 40 mg PO BEDTIME 90 days Tobacco use date assessed: 03/18/25 Fall risk assessment: No Falls in past year Last assessed Fall Risk: 06/18/25 Dental Screening Dental Screen Date: 03/18/25 HPI HPI Comments History of Present Illness Details History of Present Illness The patient is a 65 year old individual presenting for medication refills, management of chronic pain, and evaluation of recent weight gain. Chronic Pain: - The patient has diagnoses of post-lami nectomy syndrome and bilateral sacroiliitis confirmed by a pain specialist, Dr. Machuca, on May 22. - The patient reports severe, ongoing pa in right side lower back. - The patient is taking oxycodone once a day for pain management. - The patient stated that tramadol does not seem to be as effective for the pain. - The patient is under the care of a praful n specialist and is scheduled for a CT scan on July 03, with a follow-up appointment on July 10, to plan for a procedure Anxiety and Depression: - The patient has a history of anxiety a nd depression and was previously on escitalopram (Lexapro). - The patient stopped taking the medicat ion after being unable to get a refill and has expressed a desire to restart it. Asthma and Respiratory Symptoms: - The patient has a chart diagnosis of a sthma and reports difficulty breathing during the first half-hour of walking, requiring frequent stops. - The patient notes that using an albute rol inhaler before walking does not fully resolve the symptoms and still feels unable to catch breath afterwards. - The patient has a history of interstit ial lung disease, diagnosed years ago after imaging showed lung nodules, for which the patient was treated with prednisone for two years. - The patient has not seen the pulmonolo gist in a couple of years. Weight Gain: - The patient reports significant recent weight gain, with a current weight of 214 lbs. - The patient also reports recent cravin gs for chocolate and eating unusual foods. - A previously prescribed medication for weight loss was not approved by insurance. Medical History: - Post-laminectomy syndrome - Bilateral sacroiliitis - Anxiety and Depression - Asthma - Psoriatic arthropathy - Periodic limb movement disorder - History of interstitial lung disease, treated with prednisone for two years Lexopro for anxiety and depression, recently discontinued due to lack of refills [facility] Medical History Arthritis History of headache Anxiety Depression Elevated cholesterol History of COVID-19 Chest pain JOHN positive Chronic pain syndrome Postlaminectomy syndrome of lumbar region Postlaminectomy syndrome of cervical region Chronic GERD Periodic limb movement disorder Sleeping difficulty Sciatica, right side Asthma, moderate Constipation by delayed colonic transit Pre-diabetes DJD (degenerative joint disease) Lipid disorder Bursitis of right shoulder Right shoulder pain Spinal stenosis Back pain Fibromyalgia Degenerative disc disease Surgical History Status post total right knee replacement History of total right knee replacement History of lumbar fusion S/P placement of nerve stimulator History of sleeve gastrectomy History of esophagogastroduodenoscopy (EGD) H/O colonoscopy History of gastric bypass Hx of cholecystectomy H/O: hysterectomy H/O spinal fusion H/O shoulder surgery Family History Father No problems noted. Mother No problems noted. Other Mental health disorder Social History Household Members: Other Household Members Other:: son Housing: House Are you a primary primary care md to a significant other at home: No Do you presently have visiting nurse or other home services: No Alcohol intake: current Alcohol intake frequency: holidays/special occasions only Comment: pts baseline pain is 6/10 Patient Tobacco Use Status: Former Tobacco user Tobacco use type: Cigarette Years Smoked: 30 e-Cigarette/Vaping Use: Never Used Second Hand Smoke Exposure: No Substance Use Type: Marijuana service: No Current occupational status: disabled Current occupation: right handed Cognitive needs: No Hearing needs: No Vision needs: Yes Questionnaire Thrive Questionnaire Date Thrive assessed: 10/15/24 I am a: Patient What is your living situation today?: I have a place to live, but I am worried about losing it in the future Within the past 12 months, did the food you bought not last and you didn't have the money to get more?: Sometimes True Within the past 12 months, did you worry whether your food would run out before you got money to buy more?: Never true Do you have trouble paying for medicines?: No Do you have trouble getting transportation to medical appointments?: No Do you have trouble paying your heating and electricity bill?: No Do you have trouble taking care of your child, family member or friend?: No Do you have trouble with day-to-day activities such as bathing, preparing meals, shopping, managing finances, etc.?: Yes Are you currently unemployed and looking for a job?: No Are you interested in more education?: No Please select the resources that you would like help with: None Currently or been in a relationship where the following occur: No concerns reported THRIVE Score: 2 CATARINA-7 AMB Questionnaire CATARINA-7 Date CATARINA - 7 assessed: 10/18/24 Source: Developed by Drs. Andrew Lamb, Julia Olivas, Alfonso Silva and colleagues, with an educational elvia from [employer]. Review of Systems Narrative Review of Systems - General: No fever no chills - Neurological: No headaches no dizziness - Ear nose throat: No sore throat no hearing difficulty no ear pain - Cardiovascular: No syncope, no chest pain, no palpitations - Gastrointestinal: No nausea vomiting or diarrhea - Endocrine: No polyuria polydipsia no heat intolerance - Genitourinary: No dysuria , no blood in urine Physical exam (Primary Care) Vital Signs: Last Vital Signs Pulse 83 06/18/25 09:38 BP 126/80 06/18/25 09:38 Pulse Ox 97 06/18/25 09:38 BMI result Body Mass Index 37.9 Tobacco/Smoking Status: Tobacco use Status Tobacco use date assessed 03/18/25 06/18/25 09:38 Patient Tobacco Use Status Former Tobacco user 06/18/25 09:38 Tobacco use type Cigarette 06/18/25 09:38 e-Cigarette/Vaping Use Never Used 06/18/25 09:38 Thrive Assessment: Date of Thrive Assessment Date Thrive assessed 10/15/24 06/18/25 09:38 Currently or been in a relationship where the following occur: No concerns reported Narrative Physical Exam General: No acute distress HEENT: No acute findings Neck: Supple Respiratory system: Able to talk in full sentences, no audible wheeze Cardiovascular: S1-S2 regular in rate and rhythm Gastrointestinal: No pain Extremities: No edema LIVESTOCK RANCHER: Alert awake oriented x3 motor intact Skin: Normal turgor Coding Level of Care Code Complex visit Add On G2211 Diagnoses Postlaminectomy syndrome of lumbar region M96.1 Sacroiliac joint pain M53.3 ILD (interstitial lung disease) J84.9 Recurrent major depressive disorder, in partial remission F33.41 Active/Remission status: in partial remission Anxiety, generalized F41.1 Lipid disorder E78.9 Pre-diabetes R73.03 Class 2 severe obesity due to excess calories with serious comorbidity and body mass index (BMI) of 38.0 to 38.9 in adult E66.01; Z68.38 Body mass index: BMI 38.0-38.9 Obesity classification: adult class 2 (BMI 35 - 39.9) Serious obesity comorbidity presence: with serious comorbidity Vitamin D deficiency E55.9 Chronic GERD K21.9 Assessment & Plan Assessment & Plan (1) Postlaminectomy syndrome of lumbar region: Comment: Patient is established with Pain Management [facility] Code(s): M96.1 - Postlaminectomy syndrome, not elsewhere classified Category: Medical (2) Sacroiliac joint pain: Code(s): M53.3 - Sacrococcygeal disorders, not elsewhere classified Category: Medical (3) ILD (interstitial lung disease): Code(s): J84.9 - Interstitial pulmonary disease, unspecified Category: Medical (4) Major depression, recurrent: Code(s): F33.9 - Major depressive disorder, recurrent, unspecified Category: Medical Qualifiers: Active/Remission status: in partial remission Qualified Code(s): F33.41 - Major depressive disorder, recurrent, in partial remission (5) Anxiety, generalized: Code(s): F41.1 - Generalized anxiety disorder Category: Medical (6) Lipid disorder: Code(s): E78.9 - Disorder of lipoprotein metabolism, unspecified Category: Medical (7) Pre-diabetes: Comment: Diet-controlled Code(s): R73.03 - Prediabetes Category: Medical (8) Obesity due to excess calories: Comment: Make healthy food choices . Eat lots of fruits, vegetables, whole grains, and low-fat dairy products. Limit the amount of meat and fried or fatty foods that you eat. Be active Walk, garden, or do something active for 30 minutes or more on most days of the week. If you smoke, stop smoking. Smoking increases the chance of heart attack or stroke, or develop cancer.If you are over weight, Lose weight, Being overweight increases the risk of many health problems. Avoid alcohol Alcohol can increase blood sugar and blood pressure. Code(s): E66.09 - Other obesity due to excess calories Category: Medical Qualifiers: Body mass index: BMI 38.0-38.9 Obesity classification: adult class 2 (BMI 35 - 39.9) Serious obesity comorbidity presence: with serious comorbidity Qualified Code(s): E66.01 - Morbid (severe) obesity due to excess calories; Z68.38 - Body mass index [BMI] 38.0-38.9, adult (9) Vitamin D deficiency: Code(s): E55.9 - Vitamin D deficiency, unspecified Category: Medical (10) Chronic GERD: Code(s): K21.9 - Gastro-esophageal reflux disease without esophagitis Category: Medical Plan Problem List - Post-laminectomy syndrome - Bilateral sacroiliitis - Anxiety disorder - Depression - Asthma - Interstitial lung disease - Psoriatic arthropathy - Periodic limb movement disorder - Preventative care: Influenza vaccination - GERD stable - continue Vit D Plan - A 30-day supply of oxycodone will be prescribed for the patient to take one tablet at night for pain, we will fill it again in 30 days, 90 days supply was not sent as Insurance wont fill it - A 6-month prescription for escitalopram (Lexapro) has been sent to the pharmacy to restart treatment for anxiety and depression. - A prescription for an albuterol inhaler has been sent to manage respiratory symptoms. - An order for blood work has been placed, which the patient is to complete two days prior to the scheduled CT scan. The panel will include kidney function, blood sugar, liver function, and vitamin D levels. - A pulmonary function test (PFT) will be ordered to further evaluate the patient's breathing difficulties. - The patient will proceed with the scheduled CT scan on July 03 and follow up with the pain specialist, Dr. Machuca, on July 10. - The patient was educated on the nature of post-laminectomy syndrome and sacroiliitis as the cause of the pain. - The patient was advised to schedule in-person appointments for future concerns, especially for controlled substance refills, to avoid logistical issues. Orders: Orders Hemoglobin A1c Today D64.9 - Anemia, unspecified, E55.9 - Vitamin D deficiency, unspecified, E66.01 - Morbid (severe) obesity due to excess calories, E78.9 - Disorder of lipoprotein metabolism, unspecified, F41.1 - Generalized anxiety disorder, I70.90 - Unspecified atherosclerosis, K21.9 - Gastro-esophageal reflux disease without esophagitis, M53.3 - Sacrococcygeal disorders, not elsewhere classified, M96.1 - Postlaminectomy syndrome, not elsewhere classified, R73.03 - Prediabetes, Z68.38 - Body mass index [BMI] 38.0-38.9, adult LDL Cholesterol Direct Today D64.9 - Anemia, unspecified, E55.9 - Vitamin D deficiency, unspecified, E66.01 - Morbid (severe) obesity due to excess calories, E78.9 - Disorder of lipoprotein metabolism, unspecified, F41.1 - Generalized anxiety disorder, I70.90 - Unspecified atherosclerosis, K21.9 - Gastro-esophageal reflux disease without esophagitis, M53.3 - Sacrococcygeal disorders, not elsewhere classified, M96.1 - Postlaminectomy syndrome, not elsewhere classified, R73.03 - Prediabetes, Z68.38 - Body mass index [BMI] 38.0- 38.9, adult Vitamin D 25-OH (D2 and D3) Today D64.9 - Anemia, unspecified, E55.9 - Vitamin D deficiency, unspecified, E66.01 - Morbid (severe) obesity due to excess calories, E78.9 - Disorder of lipoprotein metabolism, unspecified, F41.1 - Generalized anxiety disorder, I70.90 - Unspecified atherosclerosis, K21.9 - Gastro-esophageal reflux disease without esophagitis, M53.3 - Sacrococcygeal disorders, not elsewhere classified, M96.1 - Postlaminectomy syndrome, not elsewhere classified, R73.03 - Prediabetes, Z68.38 - Body mass index [BMI] 38.0- 38.9, adult Complete Blood Count Auto Diff Today D64.9 - Anemia, unspecified, E55.9 - Vitamin D deficiency, unspecified, E66.01 - Morbid (severe) obesity due to excess calories, E78.9 - Disorder of lipoprotein metabolism, unspecified, F41.1 - Generalized anxiety disorder, I70.90 - Unspecified atherosclerosis, K21.9 - Gastro-esophageal reflux disease without esophagitis, M53.3 - Sacrococcygeal disorders, not elsewhere classified, M96.1 - Postlaminectomy syndrome, not elsewhere classified, R73.03 - Prediabetes, Z68.38 - Body mass index [BMI] 38.0- 38.9, adult Comprehensive Met. Panel Today D64.9 - Anemia, unspecified, E55.9 - Vitamin D deficiency, unspecified, E66.01 - Morbid (severe) obesity due to excess calories, E78.9 - Disorder of lipoprotein metabolism, unspecified, F41.1 - Generalized anxiety disorder, I70.90 - Unspecified atherosclerosis, K21.9 - Gastro-esophageal reflux disease without esophagitis, M53.3 - Sacrococcygeal disorders, not elsewhere classified, M96.1 - Postlaminectomy syndrome, not elsewhere classified, R73.03 - Prediabetes, Z68.38 - Body mass index [BMI] 38.0- 38.9, adult PFT pulmonary function test Today J84.9 - Interstitial pulmonary disease, unspecified Medications: Changed From oxycodone Partial Fill upon patient request. 5 mg PO Q8H 7 days PRN 21 tabs 0RF pain To oxycodone Partial Fill upon patient request. 5 mg PO .qhs PRN 30 tabs 0RF pain 30 days Refilled albuterol sulfate 90 mcg/actuation 2 puffs inhalation Q6H PRN 8.5 grams 3RF S hortness Of Breath escitalopram oxalate (Lexapro) 10 mg PO DAILY 90 tabs 1RF For depression Discontinued oxycodone Partial Fill upon patient request. Discontinued Reason: Doctor's Order 5 mg PO Q8H 7 days PRN 21 tabs 0RF pain
--- OUTSIDE RECORDS SUMMARY | 2025-06-18 10:44 | XMS_ITS | Encounter Summary ---
Author Organization [facility] Address [address] [place] [address] Phone Care Team Providers Care Cardiology Rn Name Role Phone Anselmo Carlos Alberto Villanueva NP Unavailable [phone] Jimmy Davis MD Unavailable [phone] Amaya Harris MD Primary Care Provider Encounter Details Date Type Department Care Team (Latest Contact Info) Description 10/27/2021 Transcribe Orders Virtual Department [address] [place] [address] Kaleigh Salgado CNP [address] [place] [address] [id number] [email or web address] Pre-procedure lab exam (Primary Dx) Social History [...] examination documented in this encounter Care Teams Cardiology Rn Relationship Specialty Start Date End Date Amaya Harris MD [address] [place] [address] PCP - General Internal Medicine 12/06/17 Carlos Alberto Briones NP Historical LMR Provider 05/13/17 Jimmy Davis MD [address] [place] [address] Historical LMR Provider 05/13/17 documented as of this encounter Additional Source Comments The information contained in this document represents components of the legal health record. It is not the complete legal health record.[facility]
--- OUTSIDE RECORDS SUMMARY | 2025-06-18 10:44 | XMS_ITS | Clinical Summary ---
Author Organization [facility] Address [address] [place] [address] Phone Care Team Providers Care Tuna Purse Seiner Name Role Phone AnselmoCarlos Alberto zamora Kay GR Unavailable Jimmy Davis MD Unavailable [phone] Amaya Harris MD Primary Care Provider [phone] Allergies Active Allergy Reactions Criticality Noted Date [...] obstructive apneas and 14 hypopneas on CPAP [id number], nasal mask of small size. Assessment & Plan (12/06/2021 9:48 AM EDT): Recommend BiPAP Assessment & Plan (12/11/2019 11:29 AM EDT): Still has BiPAP machine but hasn't used it since weight loss. Assessment & Plan (04/12/2019 5:55 PM EDT): Patient believes this is much better after weight loss. Wanted me to discontinue her BiPAP. I have referred back to [facility] for repeat sleep study off of any [...] any customer service. Hoping to switch to [facility] who cares for her and [...] this topic Medical Devices Implanted Type Area Supervisor Meter Repair Shop Device Identifier Shelf Expiration Date Model / Serial / Lot Filler Bone Sm Graft Demineralized Orthoblend Container 10ml Volume - [id number] Implanted:Qty: 1 on 05/23/2017 by Santos Daniels MD at [facility] STANDARD Back [employer] 01/02/2019 [id number] / / [id number] Neck Set Screw Sextant - [id number] Implanted:Qty: 4 on 05/23/2017 by Santos Daniels MD at [facility] Back [employer] [id number] / / Description:4 set screws Screw Spine Sextant 6.5x40mm - [id number] Implanted:Qty: 1 on 05/23/2017 by Santos Daniels MD at [facility] N/A: Back [employer] [id number] / [id number] / Bo Spinal Sextant 5.5x40mm - [id number] Implanted:Qty: 1 on 05/23/2017 by Santos Daniels MD at [facility] Back [employer] [id number] / [id number] / Description:35mm bo Bo Bone 5.5x35mm Spine Sextant Pre Bent Titanium - [id number] Implanted:Qty: 1 on 05/23/2017 by Santos Daniels MD at [facility] [employer] [id number] / [id number] / Description:35mm bo Screw Spine Sextant 6.5x45mm - [id number] Implanted:Qty: 2 on 05/23/2017 by Santos Daniels MD at [facility] [employer] [id number] / [id number] / Sextant Bone Screw 7.5 X 40 Implanted:Qty: 1 on 05/23/2017 by Santos Daniels MD at [facility] [employer] / [id number] / Spacer Capstone Peek 09x32 - [id number] Implanted:Qty: 1 on 05/23/2017 by Santos Daniels MD at [facility] Spine Lumbar [employer] 11/26/2022 [id number] / [id number] / [id number] Procedures Procedure Name Priority Date/Time Associated Diagnosis [...] 61 Admit Type: Outpatient Gender: Female Room: [facility] 05 Referring MD: Amaya Harris MD Exam [...] monitored continuously. The Olympus adult variable colonoscope [id number] #4 was introduced through the anus and [...] 10:40 AM Procedure Code(s): --- Professional --- 02420, Colonoscopy, flexible; diagnostic, including collection of specimen(s) by brushing or washing, when performed (separateprocedure) --- Technical --- 73293, Colonoscopy, flexible; diagnostic, including collection of specimen(s) by brushing or washing, when performed (separateprocedure) Diagnosis Code(s): --- Professional --- R19.4, Change in bowel habit K57.30, Diverticulosis of large intestine without perforation or abscess without bleeding --- Technical --- R19.4, Change in bowel habit K57.30, Diverticulosis of large intestine without perforation or abscess without bleeding CPT copyright 2020 [employer]. All rights reserved. The codes documented in this report are preliminary and upon structural steel worker reviewmay be revised to meet current compliance requirements. Procedure Date: 10/28/2021 10:40:12 AM [address] [place] [address] Amaya Harris MD GI PROCEDURE ORDERABLES Final Re sult from Last 3 Months or Most Recently Relevant to Health Maintenance Insurance [place] [id number] [place] [address] MEDICARE PART A [place] [address] MEDICARE PART A & B Member Subscriber Plan / Payer ( fective 2019-Present) Name:SylKaylah ceballos Member ID:[id number] Relation to Subscriber:Self Name:SylKaylah combs Subscriber ID:[id number] Payer ID:[id number] Group ID:Not on file Type:Medicare Address: [employer] [address] [place] [address] MEDICARE PART A & B HEALTH [place] [id number] MEDICARE PART A & B HEALTH MEDICARE PART A & B [facility] [place] [address] [place]IC[place] [id number] [place] [id number] Advance Directives For more information, please contact: [phone] (9AM - 5PM Zoey/[facility], Monday-Monday) * Full Code (Presumed) (Latest Code Status on File) Date Activated Date Inactivated Comments 05/23/2017 4:19 PM 05/26/2017 6:49 PM Care Teams Tuna Purse Seiner Relationship Specialty Start Date End Date Amaya Harris MD [address] [facility] [address] [place] [id number] PCP - General Internal Medicine 12/06/17 Carlos Alberto Briones NP [email or web address] Historical LMR Provider 05/13/17 Jimmy Davis MD [address] [place] [id number] [email or web address] Historical LMR Provider 05/13/17 Additional Source Comments The information contained in this document represents components of the legal health record. It is not the complete legal health record.[facility]
--- OUTSIDE RECORDS SUMMARY | 2025-06-18 10:44 | XMS_ITS | Encounter Summary ---
Author Organization [facility] Address [address] [place] [address] Phone Care Team Providers Care Svp Research And Strategic Analysis Name Role Phone Carlos Alberto Briones NP Unavailable Amaya Harris MD Unavailable Jimmy Davis MD Unavailable [phone] Amaya Harris MD Primary Care Provider [phone] Encounter Details Date Type Department Care Team (Late st Contact Info) Description 12/06/2017 Ancillary Orders [facility] [place], X-Ray - [address] [address] Santos Daniels MD [address] [place] [address] [email or web address] Fusion of spine of lumbar region Social [...] region documented in this encounter Care Teams Svp Research And Strategic Analysis Relationship Specialty Start Date End Date Amaya Harris MD [address] [facility] [place] [address] PCP - General Internal Medicine 12/06/17 Carlos Alberto Briones NP Historical LMR Provider 05/13/17 Amaya Harris MD [facility] [place] [address] Historical LMR Provider 05/13/17 2 Jimmy Davis MD [address] [place] [address] [email or web address] Historical LMR Provider 05/13/17 documented as of this encounter Additional Source Comments The information contained in this document represents components of the legal health record. It is not the complete legal health record.[facility]
--- OUTSIDE RECORDS SUMMARY | 2025-06-18 10:44 | XMS_ITS | Encounter Summary ---
Author Organization [facility] Address [address] [place] [address] Phone Care Team Providers Care Photographer Still Name Role Phone Anselmo, Carlos Alberto Villanueva IMMERSION METAL CLEANER Unavailable [phone] Amaya Harris MD Unavailable Jimmy Davis MD Unavailable [phone] Amaya Harris MD Primary Care Provider Mihir Starkey MD Primary Care Provider Amaya Harris MD Primary Care Provider [phone] Encounter Details Date Type Department Care Team (Late st Contact Info) Description 05/23/2017 Procedure Pass [place] Admitting Dept - [facility] Department [address] [place] [address] Social History Tobacco Use Types Packs/Day Years [...] on filedocumented in this encounter Care Teams Photographer Still Relationship Specialty Start Date End Date Amaya Harris MD 1962 [facility] [place] [address] PCP - General Internal Medicine 05/15/17 10/11/17 Mihir Starkey MD [address] [place] [address] [place] [address] PCP - General Internal Medicine 10/12/17 12/05/17 Amaya Harris MD 1962 [facility] [place] [address] PCP - General Internal Medicine 12/06/17 Carlos Alberto Briones NP [email or web address] Historical LMR Provider 05/13/17 Amaya Harris MD 1962 [facility] [place] [address] Historical LMR Provider 05/13/17 2 Jimmy Davis MD [address] [place] [address] [email or web address] Historical LMR Provider 05/13/17 documented as of this encounter Additional Source Comments The information contained in this document represents components of the legal health record. It is not the complete legal health record.[facility]
--- OUTSIDE RECORDS SUMMARY | 2025-06-18 10:44 | XMS_ITS | Encounter Summary ---
Author Organization [facility] Address [address] [place] [address] Phone Care Team Providers Care Senior Wealth Advisor Name Role Phone Carlos Alberto Briones aKy FINANCIAL SERVICES ASSOCIATE Unavailable [phone] Jimmy Davis MD Unavailable [phone] Amaya Harris MD Primary Care Provider Encounter Details Date Type Department Care Team (Late st Contact Info) Description 10/28/2021 Procedure Pass [facility] Admitting Dept Virtual Department [address] [place] [address] Social History Tobacco Use Types Packs/Day Years [...] on filedocumented in this encounter Care Teams Senior Wealth Advisor Relationship Specialty Start Date End Date Amaya Harris MD [facility] [place] [address] PCP - General Internal Medicine 12/06/17 Carlos Alberto Briones NP Historical LMR Provider 05/13/17 Jimmy Davis MD [address] [place] [address] [email or web address] Historical LMR Provider 05/13/17 documented as of this encounter Additional Source Comments The information contained in this document represents components of the legal health record. It is not the complete legal health record.[facility]
--- OUTSIDE RECORDS SUMMARY | 2025-06-18 10:45 | XMS_ITS | Encounter Summary ---
Author Organization [facility] Address [address] [place] [address] Phone Care Team Providers Care Ring Cutter Lathe Operator Name Role Phone Annie Brionescameronmariah Kay MAGNETIC RESONANCE IMAGING COORDINATOR Unavailable [phone] Amaya Harris MD Unavailable Jimmy Davis MD Unavailable [phone] Amaya Harris MD Primary Care Provider Mihir Starkey MD Primary Care Provider Amaya Harris MD Primary Care Provider Encounter Details Date Type Department Care Team (Late st Contact Info) Description 05/23/2017 Procedure Pass [facility] [address] [place] [address] Social History Tobacco Use Types Packs/Day Years [...] on filedocumented in this encounter Care Teams Ring Cutter Lathe Operator Relationship Specialty Start Date End Date Amaya Harris MD [address] [facility] [place] [address] PCP - General Internal Medicine 05/15/17 10/11/17 Mihir Starkey MD [address] [place] [address] [place] [address] PCP - General Internal Medicine 10/12/17 12/05/17 Amaya Harris MD [address] [place] [address] [place] [address] PCP - General Internal Medicine 12/06/17 Carlos Alberto Briones NP [email or web address] Historical LMR Provider 05/13/17 Amaya Harris MD [address] [place] [address] [place] [address] Historical LMR Provider 05/13/17 2 Jimmy Davis MD [address] [place] [address] [email or web address] Historical LMR Provider 05/13/17 documented as of this encounter Additional Source Comments The information contained in this document represents components of the legal health record. It is not the complete legal health record.[facility]
--- OUTSIDE RECORDS SUMMARY | 2025-06-18 10:45 | XMS_ITS | Encounter Summary ---
Author Organization [facility] Address [address] [place] [address] Phone Care Team Providers Care Parts Administrator Name Role Phone AnselmoCarlos Alberto zamora Kay SPECIAL EFFECTS ARTIST Unavailable [phone] Jimmy Davis MD Unavailable Amaya Harris MD Primary Care Provider [phone] Encounter Details Date Type Department Care Team (Latest Contact Info) Description 02/18/2022 Transcribe Orders Virtual Department [address] [place] [address] Carlito Marr MD [address] [place] [address] [email or web address] Loose stools (Primary Dx); Nausea [...] min. 14 sec; 44 IMAGES/FRAMES POS - [id number] Narrative 03/31/2022 12:46 PM EDT COMPARISON: None [...] min. 14 sec; 44 IMAGES/FRAMES POS - [id number] Carlito Marr MD [facility] Final Resu lt documented in this encounter Visit Diagnoses Diagnosis Loose stools- Primary Abnormal feces Nausea and vomiting, unspecified vomiting type Loose stools Abnormal feces Nausea and vomiting, unspecified vomiting type documented in this encounter Care Teams Parts Administrator Relationship Specialty Start Date End Date Amaya Harris MD [address] [place] [address] [place] [address] PCP - General Internal Medicine 12/06/17 Carlos Alberto Briones NP Historical LMR Provider 05/13/17 Jimmy Davis MD [address] [place] [address] [email or web address] Historical LMR Provider 05/13/17 documented as of this encounter Additional Source Comments The information contained in this document represents components of the legal health record. It is not the complete legal health record.[facility]
--- OUTSIDE RECORDS SUMMARY | 2025-06-18 10:45 | XMS_ITS | Encounter Summary ---
Author Organization [facility] Address [address] [place] [address] Phone Care Team Providers Care Facility Maintenance Manager Name Role Phone Carlos Alberto Briones Rasheedadmemeka HEAVY EQUIPMENT FIELD MECHANIC Unavailable [phone] Jimmy Davis MD Unavailable [phone] Amaya Harris MD Primary Care Provider Encounter Details Date Type Department Care Team (Late st Contact Info) Description 09/24/2021 Procedure Pass [facility], Ct Scan - [address] [address] Social History Tobacco Use Types Packs/Day Years [...] on filedocumented in this encounter Care Teams Facility Maintenance Manager Relationship Specialty Start Date End Date Amaya Harris MD [facility] [place] [address] PCP - General Internal Medicine 5/16/18 Carlos Alberto Briones NP [email or web address] Historical LMR Provider 05/13/17 Jimmy Davis MD [address] [place] [address] [email or web address] Historical LMR Provider 05/13/17 documented as of this encounter Additional Source Comments The information contained in this document represents components of the legal health record. It is not the complete legal health record.[facility]
--- OUTSIDE RECORDS SUMMARY | 2025-06-18 10:45 | XMS_ITS | Encounter Summary ---
Author Organization [facility] Address [address] [place] [address] Phone Care Team Providers Care Netbackup Admin Name Role Phone Carlos Alberto Briones Kay STEP FINISHER Unavailable Jimmy Davis MD Unavailable Amaya Harris MD Primary Care Provider Encounter Details Date Type Department Care Team (Late st Contact Info) Description 02/02/2022 Transcribe Orders Virtual Department [address] [place] [address] Carlito Marr MD [address] [place] [address] [email or web address] Social History Tobacco Use Types Packs/Day Years [...] on filedocumented in this encounter Care Teams Netbackup Admin Relationship Specialty Start Date End Date Amaya Harris MD 1962 [facility] [address] PCP - General Internal Medicine 12/06/17 Carlos Alberto Briones NP Historical LMR Provider 05/13/17 Jimmy Davis MD [address] [place] [address] [email or web address] Historical LMR Provider 05/13/17 documented as of this encounter Additional Source Comments The information contained in this document represents components of the legal health record. It is not the complete legal health record.[facility]
--- OUTSIDE RECORDS SUMMARY | 2025-06-18 10:45 | XMS_ITS | Encounter Summary ---
Author Organization [facility] Address [address] [place] [address] Phone Care Team Providers Care Microfiche Duplicator Name Role Phone Anselmo Carlos Alberto Villanueva NP Unavailable Amaya Harris MD Unavailable Jimmy Davis MD Unavailable Amaya Harris MD Primary Care Provider Encounter Details Date Type Department Care Team (Latest Contact Info) Description 10/03/2019 Transcribe Orders Virtual Department [address] [place], [place] [id number] Nirali Barrientos, MAILE [address] [place] [phone] [email or web address] Postlaminectomy syndrome, not elsewhere classified (Primary Dx) [...] evidence of lumbar vertebral fracture. POS - [id number] Narrative 10/07/2019 10:49 AM EDT XR LUMBOSACRAL [...] evidence of lumbar vertebral fracture. POS - [id number] Nirali Barrientos NP IMG XR SPINE Final Result documented in this encounter Visit Diagnoses Diagnosis Postlaminectomy syndrome, not elsewhere classified- Primary Postlaminectomy syndrome, not elsewhere classified documented in this encounter Care Teams Microfiche Duplicator Relationship Specialty Start Date End Date Amaya Harris MD 1962 [facility] [place] [address] PCP - General Internal Medicine 12/06/17 Carlos Alberto Briones NP Historical LMR Provider 05/13/17 Amaya Harris MD 1962 [facility] [place] [address] Historical LMR Provider 05/13/17 2 Jimmy Davis MD [address] [place] [address] Historical LMR Provider 05/13/17 documented as of this encounter Additional Source Comments The information contained in this document represents components of the legal health record. It is not the complete legal health record.[facility]
--- OUTSIDE RECORDS SUMMARY | 2025-06-18 10:45 | XMS_ITS | Patient Health Record ---
Author Organization [facility] Address [address] [place] [address] Care Team Providers Care Distributor Sales Consultant Name Role Phone Steven MILLIGAN, Asma Primary Care Provider Andrew Dennis [phone] Allergies Allergen (clinical drug ingredient) Drug/Non Drug Allergy documented on EMR Reaction Allergy Type Onset Date Status sulfamethoxazole / trimethoprim Bactrim Unknown Drug Allergy Active carisoprodol Soma Unknown Drug Allergy Acti ve Reason For Referral No Information Medications Medication SIG (Take, Route, Frequency, Duration) Notes Start Date End Date Status Simvastatin 40 MG Tablet Orally Active Omeprazole 20 MG Capsule Delayed Release TAKE 1 CAPSULE BY MOUTH TWICE A DAY; Duration: 90 Active Incruse Ellipta Acti ve busPIRone HCl 5 MG Tablet 1 tablet Orally/prn Three times a day Active Venlafaxine HCl ER A ctive busPIRone HCl 5 MG Tablet 1 tablet Orally Twice a day 12/03/2020 Active Non-Aspirin Active Topamax 25 MG Tablet 1 tablet Orally Twi ce a day Active Flexeril PRN Active Vitamin D3 Active Melatonin Active Zofran 4 MG Tablet 1 tablet Orally Q 6 hours prn nausea 10/15/2020 Active Celecoxib Not-Taking /PRN clonazePAM Active Clobetasol Propionate Active Methotrexate 2.5 MG Tablet as directed Orally Active Folic Acid 1 MG Tablet 1 tablet Orally O nce a day; Duration: 30 day(s) Active Immunizations Vaccine Route Administration Date Status Comme nts Influenza Unknown 04/01/2020 Administered Social History Tobacco Use: Social History Observation Description Date Details (start date - stop date) Former Smoker NA - NA Social History Tobacco Use: Social Info Question Answer Notes Tobacco Use/Smoking Patient is a former smoker How long has it been since you last smoked? 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 Section Notes: Nonsmoker since 2009; no sig alcohol Nonsmoker since 2009; no sig alcohol Nonsmoker since 2009; no sig alcohol Problems Problem Type SNOMED Code ICD Code Onset Dates Problem Status W/U Status Risk Notes Problem Epigastric pain (94260559) Epigastric abdominal pain (R10.13) Active confirmed Problem Irritable bowel syndrome (18194990) Irritable bowel syndrome (K58.9) Active confirmed Problem Valverde's esophagus (259172198) Valverde's esophagus without dysplasia (K22.70) Active confirmed Problem Early satiety (904595555) Early satiety (R68.81) Active confirmed Problem Gastroesophageal reflux disease (975682828) GERD (gastroesophage al reflux disease) (K21.9) Active confirmed Problem Vomiting (713368461) Vomiting (R11.10) Active confirmed Problem Irritable bowel syndrome characterized by constipation (673650153) Irritable bowel syndrome with constipation (K58.1) Active [...] OF [place] [address] [place] [phone] [id number] FARHAN PETERSON Self - patient is the insured MEDICAID OF [facility] [address] [place] [address] [id number] FARHAN PETERSON Self - patient is the insured Medical (General) History Medical History History ICD Code Chronic neck and back pain from degenera tive disc disease Denies [place],DM,CVA,renal disease Asthma Fibromyalgia Distant hx of stomach [...]
--- OUTSIDE RECORDS SUMMARY | 2025-06-18 10:45 | XMS_ITS | Encounter Summary ---
Author Organization [facility] Address [address] [place] [address] Phone Care Team Providers Care Concrete Pipe Maker Name Role Phone Carlos Alberto Briones Kay BAG WORKER Unavailable Jimmy Davis MD Unavailable [phone] Amaya Harris MD Primary Care Provider Encounter Details Date Type Department Care Team (Late st Contact Info) Description 02/16/2022 Transcribe Orders Virtual Department [address] [place] [address] Carlito Marr MD [address] [place] [address] [email or web address] Social History Tobacco Use Types Packs/Day Years [...] on filedocumented in this encounter Care Teams Concrete Pipe Maker Relationship Specialty Start Date End Date Amaya Harris MD 1962 [facility] [place] [address] PCP - General Internal Medicine 12/06/17 Carlos Alberto Briones NP Historical LMR Provider 05/13/17 Jimmy Davis MD [address] [place] [address] [email or web address] Historical LMR Provider 05/13/17 documented as of this encounter Additional Source Comments The information contained in this document represents components of the legal health record. It is not the complete legal health record.[facility]
--- OUTSIDE RECORDS SUMMARY | 2025-06-18 10:45 | XMS_ITS | Encounter Summary ---
Author Organization [facility] Address [address] [place] [address] Phone Care Team Providers Care Bereavement Program Coordinator Name Role Phone Annie Brionescameronmariah Kay DEPUTY FELONY CLERK Unavailable [phone] Amaya Harris MD Unavailable Jimmy Davis MD Unavailable Amaya Harris MD Primary Care Provider Mihir Starkey MD Primary Care Provider Amaya Harris MD Primary Care Provider Encounter Details Date Type Department Care Team (Latest Contact Info) Description 06/19/2017 Ancillary Orders [facility], X-Ray - [address] [address] Angie Crawford, JEZ [address] [place] [address] [phone] [email or web address] Arthrodesis status; Lumbar radiculopathy Social History Tobacco [...] junction withoutcomplication evident. POS - [id number] Angie STOYR IMG XR SPINE Final Resul t documented in this encounter Visit Diagnoses Diagnosis Arthrodesis status Lumbar radiculopathy Thoracic or lumbosacral neuritis or radiculitis, unspecified Arthrodesis status Lumbar radiculopathy Thoracic or lumbosacral neuritis or radiculitis, unspecified documented in this encounter Care Teams Bereavement Program Coordinator Relationship Specialty Start Date End Date Amaya Harris MD [address] [place] [address] [place] [address] PCP - General Internal Medicine 05/15/17 10/11/17 Mihir Starkey MD [address] [place] [address] [place] [address] PCP - General Internal Medicine 10/12/17 12/05/17 Amaya Harris MD [address] [place] [address] [place] [address] PCP - General Internal Medicine 12/06/17 Carlos Alberto Briones NP [email or web address] Historical LMR Provider 05/13/17 Amaya Harris MD [address] [place] [address] [place] [address] Historical LMR Provider 05/13/17 2 Jimmy Davis MD [address] [place] [address] [email or web address] Historical LMR Provider 05/13/17 documented as of this encounter Additional Source Comments The information contained in this document represents components of the legal health record. It is not the complete legal health record.[facility]
== END 2025-06-18 10:47 | disposition home or self-care (01) ==
LOC: HO.HMCC 09:32
PROVIDERS: PCP Internal Medicine; Visit Provider Internal Medicine
DX: J84.9 Interstitial pulmonary disease, unspecified (principal); M96.1 Postlaminectomy syndrome, not elsewhere classified; E66.01 Morbid (severe) obesity due to excess calories; Z68.38 Body mass index [BMI] 38.0-38.9, adult; M53.3 Sacrococcygeal disorders, not elsewhere classified; F33.41 Major depressive disorder, recurrent, in partial remission; F41.1 Generalized anxiety disorder; E78.9 Disorder of lipoprotein metabolism, unspecified; R73.03 Prediabetes; E55.9 Vitamin D deficiency, unspecified; K21.9 Gastro-esophageal reflux disease without esophagitis

== ENCOUNTER → 2025-06-18 09:32 | Outpatient (BNVA) | payer MEDICARE, MEDICAID, SELFPAY | PROVIDERS: PCP Internal Medicine; Visit Provider Internal Medicine | DX: M46.1 Sacroiliitis, not elsewhere classified (principal); F41.9 Anxiety disorder, unspecified; J45.909 Unspecified asthma, uncomplicated; M53.3 Sacrococcygeal disorders, not elsewhere classified; J84.9 Interstitial pulmonary disease, unspecified; F33.41 Major depressive disorder, recurrent, in partial remission; F41.1 Generalized anxiety disorder; R73.03 Prediabetes; E66.01 Morbid (severe) obesity due to excess calories; E55.9 Vitamin D deficiency, unspecified; K21.9 Gastro-esophageal reflux disease without esophagitis; Z68.38 Body mass index [BMI] 38.0-38.9, adult | CPT/HCPCS: 99212 ==

== ENCOUNTER 2025-07-01 11:26 | Outpatient (REF) | payer MEDICARE, MEDICAID, SELFPAY ==
[2025-07-01 13:44] LABS: MANUAL DIFF FLAG NO
[2025-07-01 13:57] LABS: Hematocrit 39.8 % (37.0-47.0); Hemoglobin 12.4 g/dl (12.0-16.0); Imm Gran Abs Auto 0.02 X10*3/uL (0.00-0.03); Imm Gran Pct Auto 0.3 % (0.0-0.4); Lymphocytes Absolute Auto 2.2 X10*3/uL (1.2-4.9); Mean Corpuscular HGB Conc 31.2 g/dl (31.0-35.0); Mean Corpuscular Hemoglobin 27.6 pg (27.0-33.0); Mean Corpuscular Volume 88.4 fL (80.0-98.0); NRBC Abs Auto 0.000 X10*3/uL (0.0-0.012); NRBC Pct Auto 0.0 /100WBC (0.0-0.2); Platelet Count 325 X10*3/uL (160-400); Red Blood Count 4.50 X10*6/uL (4.20-5.50); White Blood Count 7.0 X10*3/uL (4.8-10.8)
[2025-07-01 14:16] LABS: Alanine Aminotransferase 9 U/L (0-31); Albumin Level 4.2 g/dL (3.5-5.0); Alkaline Phosphatase 68 U/L (39-117); Anion Gap 11 (12-20); Aspartate Amino Transferase 17 U/L (5-31); Blood Urea Nitrogen 13 mg/dL (9-16); Calcium 9.1 mg/dL (8.4-10.2); Carbon Dioxide 29 mmol/L (22-29); Chloride 107 mmol/L (96-108); Estimated Glomerular Filt Rate > 60; Potassium 4.4 mmol/L (3.3-5.1); Sodium 143 mmol/L (135-145); Total Protein 6.8 g/dL (6.5-8.0)
== END 2025-07-01 11:27 | disposition home or self-care (01) ==
LOC: HO.HMGCLDS 11:26
PROVIDERS: PCP Internal Medicine; Visit Provider Internal Medicine
DX: K21.9 Gastro-esophageal reflux disease without esophagitis (principal); I70.90 Unspecified atherosclerosis; M96.1 Postlaminectomy syndrome, not elsewhere classified; M53.3 Sacrococcygeal disorders, not elsewhere classified; D64.9 Anemia, unspecified; E78.9 Disorder of lipoprotein metabolism, unspecified; E55.9 Vitamin D deficiency, unspecified; E66.01 Morbid (severe) obesity due to excess calories; Z68.38 Body mass index [BMI] 38.0-38.9, adult; F41.1 Generalized anxiety disorder; R73.03 Prediabetes
CPT/HCPCS: 36415; 80053; 82306; 83036; 83721; 85025

== ENCOUNTER 2025-07-03 08:41 | Outpatient (REF) | payer MEDICARE, MEDICAID, SELFPAY ==
--- NOTE | ~2025-07-03 | CT_ITS ---
CLINICAL HISTORY: M96.1 - Postlaminectomy syndrome, not elsewhere classified CT lumbar spine with and without contrast Comparison: None provided Findings: Right L5 laminectomy changes with surgical hardware in the posterior elements noted. There are no focal masses or fluid collections. Dural sac appears normal in location and size at this level. Vertebral alignment is within normal limits. No acute fractures or dislocations. There is multiple level degenerative disc and facet change. Visualized abdominal contents unremarkable. IMPRESSION: L4-L5 iatrogenic findings. This document has been electronically signed by: Carlito Pandya MD on 07/04/2025 10:43:11
[2025-07-03] MEDS: iohexoL 350 MG/ML 100 ML INFUS..BTL 85 ML IV (13:21)
== END 2025-07-03 08:42 ==
LOC: HO.CT 08:41
PROVIDERS: PCP Internal Medicine; Visit Provider Anesthesiology
DX: M96.1 Postlaminectomy syndrome, not elsewhere classified (principal); M46.1 Sacroiliitis, not elsewhere classified; M99.04 Segmental and somatic dysfunction of sacral region; M53.3 Sacrococcygeal disorders, not elsewhere classified
CPT/HCPCS: 72133; Q9967

== ENCOUNTER → 2025-07-03 08:43 | Outpatient (BNV) | payer MEDICARE, MEDICAID, SELFPAY | PROVIDERS: PCP Internal Medicine; Visit Provider Specialist | DX: M96.1 Postlaminectomy syndrome, not elsewhere classified (principal) | CPT/HCPCS: 72133 ==

== ENCOUNTER 2025-07-10 08:44 | Outpatient (AMB) | payer MEDICARE, MEDICAID, SELFPAY ==
[2025-07-10 09:01] VITALS: BP 117/66; PULSE 105; RESP 16; O2SAT 97; BMI 37.7
--- NOTE | 2025-07-10 09:01 | MHC.OFFVIS ---
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: No Accompanied by: Self / Same As Patient Allergies adhesive tape (ADHESIVE TAPE) Allergy (Severe, Verified 07/10/25 09:01) SKIN TEARS pramipexole Allergy (Severe, Verified 07/10/25 09:01) Diarrhea adalimumab (From Humira) Allergy (Intermediate, Verified 07/10/25 09:01) Itching carisoprodol (From SOMA) Allergy (Intermediate, Verified 07/10/25 09:01) SWELLING, RASH cephalexin Allergy (Intermediate, Verified 07/10/25 09:01) Itching gabapentin Allergy (Intermediate, Verified 07/10/25 09:01) leg swelling sulfamethoxazole (From BACTRIM) Allergy (Intermediate, Verified 07/10/25 09:01) SWELLING,RASH trimethoprim (From BACTRIM) Allergy (Intermediate, Verified 07/10/25 09:01) SWELLING,RASH HPI Comments Details: Kaylah is 64 years old female who is suffering from postlaminectomy syndrome and bilateral sacroiliitis. She received diagnostic sacroiliac joint injection which resulted in prolonged several days of pain relief. She also received therapeutic sacroiliac joint injection twice. First injection about 18 months ago resulted in 6 months of pain improvement. Second injection in November of this year resulted in 3 months of pain improvement. She both times reported immediately after the procedure reduction of the pain 75-80%. However the pain starts to slowly climb up after 1 month of the therapeutic SI joint injection. She was a subject of physical therapy numerous times. She continues home exercise program currently. She tried to stay active performing activities of daily living. She received sacroiliac joint belt in this office in continues to wear it with minimal improvement. She also was sent for CT scan of the lumbar spine which demonstrated postlaminectomy syndrome changes and no acute changes. There is no red flags. I will send her for the CT scan of the pelvis to rule out red flags to the pelvis area and after that I will schedule her for the fusion of the sacroiliac joints [facility] Medical History Arthritis History of headache Anxiety Depression Elevated cholesterol History of COVID-19 Chest pain JOHN positive Chronic pain syndrome Postlaminectomy syndrome of lumbar region Postlaminectomy syndrome of cervical region Chronic GERD Periodic limb movement disorder Sleeping difficulty Sciatica, right side Asthma, moderate Constipation by delayed colonic transit Pre-diabetes DJD (degenerative joint disease) Lipid disorder Bursitis of right shoulder Right shoulder pain Spinal stenosis Back pain Fibromyalgia Degenerative disc disease Surgical History Status post total right knee replacement History of total right knee replacement History of lumbar fusion S/P placement of nerve stimulator History of sleeve gastrectomy History of esophagogastroduodenoscopy (EGD) H/O colonoscopy History of gastric bypass Hx of cholecystectomy H/O: hysterectomy H/O spinal fusion H/O shoulder surgery Family History Father No problems noted. Mother No problems noted. Other Mental health disorder Social History Household Members: Other Household Members Other:: son Housing: House Are you a primary child care associate to a significant other at home: No Do you presently have visiting nurse or other home services: No Alcohol intake: current Alcohol intake frequency: holidays/special occasions only Comment: pts baseline pain is 6/10 Patient Tobacco Use Status: Former Tobacco user Tobacco use type: Cigarette Years Smoked: 30 e-Cigarette/Vaping Use: Never Used Second Hand Smoke Exposure: No Substance Use Type: Marijuana service: No Current occupational status: disabled Current occupation: right handed Cognitive needs: No Hearing needs: No Vision needs: Yes Review of Systems Const All systems reviewed & are unremarkable except as noted in HPI and below ENT Reports Normal hearing present Neuro Reports Normal hearing present, Denies Abnormal speech present, Denies confusion and Denies Sensory deficit (Neuro) Psych Denies confusion Physical Exam Vital Signs: Last Vital Signs Pulse 105 H 07/10/25 09:01 Resp 16 07/10/25 09:01 BP 117/66 07/10/25 09:01 Pulse Ox 97 07/10/25 09:01 Oxygen Delivery Method Room Air 07/10/25 09:01 BMI result Body Mass Index 37.7 Const General: no acute distress; No confusion Orientation/consciousness: patient oriented x3 and No confusion Eyes General: appearance normal, both eyes and all related structures Pupils: Equal, round and reactive pupils present EOM: EOMs intact bilaterally Neck Neck: Yes full ROM Chest Chest palpation & inspection: normal inspection of the chest Resp Effort & Inspection: normal respiratory effort, able to speak in complete sentences, normal respiratory pattern, no audible wheezes and no cough Cardio Jugular venous distension: no JVD GI Inspection: Yes normal to inspection Back/Spine/Pelvis Other: Were well-healed incision on the lumbar spine demonstrates previous L5-S1 fusion. No signs of inflammation or infection. On physical exam patient is able to stand on bilateral tiptoes and bilateral heels. She denies numbness in bilateral lower extremities she denies weakness in bilateral lower extremities. SLR is negative bilaterally. Oc test is positive bilaterally. [place]'s test is positive bilaterally. Fourteen finger test is positive bilaterally. Pelvic compression test is positive bilaterally. Pelvic distraction test is positive more on the left and less on the right but also bilaterally. Neuro General: patient oriented x3, gait normal and No confusion Cranial nerves: Yes CN's II-XII intact bilaterally, Yes Equal, round and reactive pupils present, Yes Normal hearing present and Yes Ability to bilaterally elevate shoulders present Speech: No Abnormal speech present Gait exam (Neuro): Normal gait present Motor exam (neuro): 5/5 motor strength present throughout Sensory Exam: No Sensory deficit (Neuro) Extrem General: No pedal edema Psych Speech and movement: Normal speech and movement present Affect: normal affect Attitude: cooperative Thought process: Normal thought process present Thought content: Normal thought content present Insight: Good insight present (Psych) Judgement: Good judgement present (Psych) Results Reviewed Results Reviewed: CT lumbar spine with and without contrast Comparison: None provided Findings: Right L5 laminectomy changes with surgical hardware in the posterior elements noted. There are no focal masses or fluid collections. Dural sac appears normal in location and size at this level. Vertebral alignment is within normal limits. No acute fractures or dislocations. There is multiple level degenerative disc and facet change. Visualized abdominal contents unremarkable. IMPRESSION: L4-L5 iatrogenic findings. Assessment & Plan Assessment & Plan (1) Postlaminectomy syndrome of lumbar region: Comment: Patient is established with [facility] Code(s): M96.1 - Postlaminectomy syndrome, not elsewhere classified Category: Medical (2) Sacroiliitis: Code(s): M46.1 - Sacroiliitis, not elsewhere classified Category: Medical (3) Somatic dysfunction of both sacroiliac joints: Code(s): M99.04 - Segmental and somatic dysfunction of sacral region Category: Medical (4) Postlaminectomy syndrome of lumbar region: Comment: Patient is established with Pain [facility] Code(s): M96.1 - Postlaminectomy syndrome, not elsewhere classified Category: Medical (5) Sacroiliitis: Code(s): M46.1 - Sacroiliitis, not elsewhere classified Category: Medical (6) Sacroiliac joint pain: Code(s): M53.3 - Sacrococcygeal disorders, not elsewhere classified Category: Medical (7) Sacroiliac joint dysfunction of right side: Code(s): M53.3 - Sacrococcygeal disorders, not elsewhere classified Category: Medical Plan CT of the lumbar spine did not demonstrate any ?red flags in the lumbar spine which would be indicative of her pain. We will also need to rule out red flags of the pelvis area: For this reason I will send her for the CT of the pelvis without IV contrast. After CT of the pelvis without IV contrast we will schedule patient for sacroiliac joint fusion on the right Nevro system. Orders: Orders CT pelvis wo IV con Today M46.1 - Sacroiliitis, not elsewhere classified, M53.3 - Sacrococcygeal disorders, not elsewhere classified Coding Level of Care Code Est Pt Level 3 (64442) Diagnoses Postlaminectomy syndrome of lumbar region M96.1 Sacroiliitis M46.1 Somatic dysfunction of both sacroiliac joints M99.04 Sacroiliac joint pain M53.3 Sacroiliac joint dysfunction of right side M53.3
--- OUTSIDE RECORDS SUMMARY | 2025-07-10 09:23 | XMS_ITS | Patient Health Record ---
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 Name Role Phone Steven MILLIGAN, Asma Primary Care Provider Andrew Dennis [phone] Allergies Allergen (clinical drug ingredient) Drug/Non Drug [...] W/U Status Risk Notes Problem Epigastric pain (47760922) Epigastric abdominal pain (R10.13) Active confirmed Problem Irritable bowel syndrome (42567051) Irritable bowel syndrome (K58.9) Active confirmed Problem Valverde's esophagus (815863918) Valverde's esophagus without dysplasia (K22.70) Active confirmed Problem Early satiety (909210598) Early satiety (R68.81) Active confirmed Problem Gastroesophageal reflux disease (562598137) GERD (gastroesophage al reflux disease) (K21.9) Active confirmed Problem Vomiting (748695730) Vomiting (R11.10) Active confirmed Problem Irritable bowel syndrome characterized by constipation (916692946) Irritable bowel syndrome with constipation (K58.1) Active [...] OF [place] [address] [place] [phone] [id number] FARHAN PETERSON Self - patient is the insured MEDICAID OF [facility] [address] [place] [address] [id number] FARHAN PETERSON Self - patient is the [...] surgery Gastric sleeve surgery 06/[address] Vuaghn Left shoulder surgery
== END 2025-07-10 09:21 | disposition home or self-care (01) ==
LOC: HO.PMC 08:46
PROVIDERS: PCP Internal Medicine; Visit Provider Anesthesiology
DX: M96.1 Postlaminectomy syndrome, not elsewhere classified (principal); M46.1 Sacroiliitis, not elsewhere classified; M99.04 Segmental and somatic dysfunction of sacral region; M53.3 Sacrococcygeal disorders, not elsewhere classified
CPT/HCPCS: 99213

== ENCOUNTER → 2025-07-10 08:44 | Outpatient (BNVA) | payer MEDICARE, MEDICAID, SELFPAY | PROVIDERS: PCP Internal Medicine; Visit Provider Anesthesiology | DX: M46.1 Sacroiliitis, not elsewhere classified (principal); M53.3 Sacrococcygeal disorders, not elsewhere classified; M96.1 Postlaminectomy syndrome, not elsewhere classified; M99.04 Segmental and somatic dysfunction of sacral region | CPT/HCPCS: 99212 ==